=== PATIENT | female | born 1960 | race Caucasian/White ===

== ENCOUNTER → 2021-01-29 09:05 | Outpatient (CLI) | payer OTHER, SELFPAY ==
--- NOTE | ~2021-01-29 | MR_ITS ---
EXAMINATION: MR ankle LT wo con DATE: 01/29/2021 10:11 INDICATION: Plantar fasciitis with left ankle pain. TECHNIQUE: Magnetic resonance imaging (MRI) of the left ankle was performed without intravenous contr ast. Sequences included sagittal, coronal, and axial proton-density weighted fast spin echo without a nd with fat saturation. COMPARISON: None. FINDINGS: Medial ankle ligaments: Deep and superficial deltoid ligaments as well as the spring ligament are normal. Lateral ankle ligaments: The anterior and posterior inferior tibiofibular ligaments are normal. The anterior talofibular, calc aneofibular and posterior talofibular ligaments are normal. Tendons: Achilles tendon is normal. Minimal peroneal tenosynovitis. Mild tendinopathy and longitudinal split t ear of the peroneus longus longus tendon centered at the level of the caudal tip of the lateral malle olus. The peroneus brevis tendon is normal. Additional minimal tenosynovitis along the normal tibiali s posterior tendon. The flexor digitorum longus and flexor hallucis longus tendons are normal. The ti bialis anterior and extensor hallucis longus and extensor digitorum longus tendons are normal. Plantar fascia: Small plantar calcaneal spur with mild thickening of the proximal plantar aponeurosis. There is minim al increased fluid signal surrounding the aponeurosis and in the marrow at the osteophyte. Findings c onsistent with very mild acute on chronic plantar fasciitis/enthesitis. Bones/other: No fracture or pathologic marrow replacing process. Mild left ankle osteoarthritis with small regions of high-grade chondromalacia with minimal marrow edema along the lateral rim of the talus. Moderate osteoarthritis at the fourth tarsal metatarsal joint with more extensive subarticular edema and minim al cystic change at the distal articular surface of the cuboid. Mild osteoarthritis at the second and third tarsal metatarsal joints. Fluid: Physiologic amount of fluid in the joint spaces. No bursitis or other abnormal fluid collections. IMPRESSION: 1. Mild peroneal tenosynovitis with mild tendinopathy and longitudinal split tearing of the peroneus brevis longus tendon. 2. Very mild likely acute on chronic plantar fasciitis/enthesitis. 3. Mild articular osteoarthritis, moderate at the fourth tarsal metatarsal joint and mild at the ankl e and second and third tarsal metatarsal joints. Reviewed, dictated and finalized at location A. IMPRESSION: 1. Mild peroneal tenosynovitis with mild tendinopathy and longitudinal split te aring of the peroneus brevis longus tendon. 2. Very mild likely acute on chronic plantar fasciitis/enthesitis. 3. Mild articular osteoarthritis, moderate at the fourth tarsal metatarsal join t and mild at the ankle and second and third tarsal metatarsal joints.
--- NOTE | ~2021-01-29 | MR_ITS ---
EXAMINATION: MR ankle RT wo con DATE: 01/29/2021 10:07 INDICATION: Plantar fasciitis with lateral right ankle pain. TECHNIQUE: Magnetic resonance imaging (MRI) of the right ankle was performed without intravenous cont rast. Sequences included sagittal, coronal, and axial proton-density weighted fast spin echo without and with fat saturation. COMPARISON: None. FINDINGS: Medial ankle ligaments: Deep and superficial deltoid ligaments as well as the spring ligament are normal. Lateral ankle ligaments: The anterior and posterior inferior tibiofibular ligaments are normal. The anterior talofibular, calc aneofibular and posterior talofibular ligaments are normal. Tendons: Achilles tendon is normal. Mild peroneal tenosynovitis with small amount of fluid surrounding predomi nantly the distal portion of the tendon. Mild fusiform thickening of the peroneus longus tendon cente red at the retromalleolar groove consistent with mild tendinopathy without discrete tear. The peroneu s brevis tendon is normal. Mild tenosynovitis along the normal tibialis posterior tendon. The flexor digitorum longus and flexor hallucis longus tendons are normal. The tibialis anterior and extensor elliott llucis longus and extensor digitorum longus tendons are normal. Plantar fascia: Mild thickening of the proximal plantar aponeurosis with small enthesophyte and mild increased fluid signal at its calcaneal insertion consistent with very mild acute on chronic plantar fascitis/enthesi tis. Bones/other: Bone alignment is normal. Mild tibiotalar osteoarthritis with small region of high-grade chondromalac ia with minimal subarticular edema along the lateral rim of the talar dome. Additional mild osteoarth ritis at the third and fourth tarsal metatarsal joints. Nonspecific marrow edema at the base of the f ifth metatarsal which does not appears centered along the articular surface and without evident fract ure line most likely differential including bone contusion or stress reaction. No fracture or patholo gic marrow replacing process. Fluid: Physiologic amount fluid in the joint spaces. No bursitis or other abnormal fluid collections. IMPRESSION: 1. Nonspecific marrow edema at the base of the fifth metatarsal without evident fracture line or sign ificant associated osteoarthritis suggesting either stress reaction or bone contusion. 2. Mild peroneal tenosynovitis with mild peroneus longus tendinopathy without discrete tear. 3. Very mild acute on chronic plantar fasciitis/enthesitis. 4. Mild tibiotalar osteoarthritis. Reviewed, dictated and finalized at location A. IMPRESSION: 1. Nonspecific marrow edema at the base of the fifth metatarsal without evident fracture line or significant associated osteoarthritis suggesting either stres s reaction or bone contusion. 2. Mild peroneal tenosynovitis with mild peroneus longus tendinopathy without d iscrete tear. 3. Very mild acute on chronic plantar fasciitis/enthesitis. 4. Mild tibiotalar osteoarthritis.
== END ==
PROVIDERS: Visit Provider Podiatrist Foot & Ankle Surgery
DX: M72.2 Plantar fascial fibromatosis (principal); M19.071 Primary osteoarthritis, right ankle and foot; M19.072 Primary osteoarthritis, left ankle and foot
CPT/HCPCS: 73721

== ENCOUNTER 2021-08-01 08:36 | Outpatient (CLI) | payer OTHER, SELFPAY ==
--- NOTE | ~2021-08-01 | NM_ITS ---
EXAMINATION: NM sara stress w perfusion DATE: 08/01/2021 11:22 INDICATION: Atypical chest pain TECHNIQUE: Rest images were obtained following intravenous administration of 10.2 mCi Tc99m tetrofosm in (Myoview). The patient was infused intravenously with Lexiscan (Regadenoson). Then, 30.05 mCi Tc99 m tetrofosmin (Myoview) was administered intravenously, and stress images were obtained. Data was rec onstructed into short axis and horizontal and vertical long axis SPECT images. Gated SPECT images wer e also obtained. COMPARISON: None. FINDINGS: There is no definite reversible or fixed perfusion abnormality to suggest ischemia or infar ction. There is normal left ventricular chamber size, wall motion and ejection fraction. Left ventr icular ejection fraction measures >70%. IMPRESSION: 1. Normal myocardial perfusion at rest and during stress. 2. Left ventricular ejection fraction measuring >70%. Reviewed, dictated and finalized at location A.
--- NOTE | 2021-08-01 08:49 | EST_ITS ---
Patient Info Name: Savanna Veliz Age: 61 years : 1960 Gender: Female Ht: 66 in Wt: 215 lbs BSA: 2.17 m2 HR: 62 bpm BP: 150 / 92 mmHg Heart Rhythm: Sinus Rhythm Exam Date: 08/01/2021 9:49 AM Exam Location: [facility] Stress Patient Status: Outpatient Admit Date: 08/01/2021 Staff Ordering Physician: Bandar Smith DO Attending Provider: Bandar Smith DO Exercise Technologist: Netta Benito CT Exercise Physician: Asif Simpson DO Exam Type: CA stress sara w NM Study Info Indications R07.9 - Chest pain, unspecified A regadenoson stress test was performed. Summary 1. 1. Negative lexiscan stress test for ischemic ST changes by ECG criteria. 2. 2. Baseline hypertension. 3. 3. Nuclear scan to follow and will be reported separately. Please correlate with it. 4. 4. Patient informed of the above results. Protocol: Lexiscan Stress ECG Details Stage: REST Duration (min): 1 min : 9 sec HR (bpm): 61 SBP (mmHg): 150 DBP (mmHg): 92 Stage: REST Duration (min): 6 min : 48 sec HR (bpm): 64 SBP (mmHg): 150 DBP (mmHg): 92 Stage: STAGE 1 Duration (min): 0 min : 59 sec HR (bpm): 79 SBP (mmHg): 166 DBP (mmHg): 81 Stage: RECOVERY Duration (min): 1 min : 0 sec HR (bpm): 82 SBP (mmHg): 166 DBP (mmHg): 81 Stage: RECOVERY Duration (min): 2 min : 0 sec HR (bpm): 74 SBP (mmHg): 166 DBP (mmHg): 81 Stage: RECOVERY Duration (min): 3 min : 0 sec HR (bpm): 80 SBP (mmHg): 185 DBP (mmHg): 94 Stage: RECOVERY Duration (min): 3 min : 3 sec HR (bpm): 78 SBP (mmHg): 185 DBP (mmHg): 94 Rest HR: 64 bpm Peak HR: 89 bpm Rest Sys BP: 150 mmHg Peak Sys BP: 185 mmHg Max Pred HR: 157 bpm % Max Pred HR: 57 % Target HR: 133 bpm Max RPP: 16,465 bpm*mmHg Termination Reason: Completed protocol Cardiac Symptoms: Shortness of breath Total Time: 1 min : 0 sec Rest Billy BP: 92 mmHg Peak Billy BP: 94 mmHg Total Dose: 0.4 mg Resting ECG Sinus rhythm, IRBBB. Stress ECG No ST changes. Arrhythmias None. Report Signatures
== END 2021-08-01 08:37 | disposition home or self-care (01) ==
LOC: ANHCARD 08:38
PROVIDERS: PCP Internal Medicine; Visit Provider Internal Medicine
DX: R07.89 Other chest pain (principal)
CPT/HCPCS: 78452; 93017; A9502; J2785

== ENCOUNTER 2021-08-22 01:23 | Day surgery (SDC) | payer OTHER, SELFPAY ==
[2021-08-16 13:25] VITALS: BMI 35.2
--- NOTE | 2021-08-19 16:14 | PM.HPGS ---
History of Present Illness History of Present Illness Consent: Risks, benefits, and alternatives have been discussed and questions answered. Patient agrees to proceed with procedure. Chief complaint: GERD Narrative: Savanna Veliz is a 61 year old female with chronic gastroesophageal reflux symptoms.. Despite taking omeprazole regularly, she is still having symptoms. Every few weeks she will get an attack lasting 30 or 40 minutes with burning going up into her throat and even to her left ear. It leaves her chest uncomfortable for a while afterwards. She considered going to the emergency room but has not done that. Her Prilosec was recently increased to twice a day a week or so ago and she has had no episodes since then. Rarely she will have some sensation that food does not want to go down as though it is hanging up in her throat. Review of Systems Review of Systems: All systems reviewed & are unremarkable except as noted in HPI and below PMFSH Past Medical History Medical History Pancreatitis Surgical History Surgical History H/O cervical spine surgery H/O parathyroidectomy H/O: hysterectomy History of foot surgery Family History Family History Sibling Hypertension Family history of heart disease in male family member before age 55 Mother Family history of lung cancer, Onset Age: 85 Patient's mother is Father Cerebrovascular accident, Onset Age: 82 Patient's father is Other Diabetes mellitus Social History Social History Smoking packs per day: 2 Smoking cigarettes per day: 40.0 Years smoked: 30 Smoking pack-years: 60.00 Smoking status: Former smoker Tobacco type: cigarettes Second hand tobacco smoke exposure: No Smoking end date: 10/15/84 Alcohol intake: never Substance use: never Substance use type: does not use Living arrangements: with family Spiritual care concerns: No Meds Home Medications and Allergies Home Medications Medication Instructions Recorded Confirmed Type atorvastatin 20 mg tablet 20 mg PO DAILY #90 tablet 04/26/21 08/17/21 Rx naproxen sodium 220 mg capsule 220 mg PO BID PRN 05/30/21 08/17/21 History losartan 100 mg tablet 100 mg PO DAILY #90 tablet 06/21/21 08/17/21 Rx ergocalciferol (vitamin D2) 1,250 50,000 unit PO WEEKLY #13 cap 06/28/21 08/17/21 Rx mcg (50,000 unit) capsule fluticasone propionate See Rx Instructions .ROUTE 08/16/21 08/17/21 History .COMPLEX PRN hydrochlorothiazide 25 mg tablet 25 mg PO DAILY #90 tablet 08/16/21 08/16/21 Rx omeprazole 40 mg capsule,delayed 40 mg PO BID #90 cap 08/16/21 08/16/21 Rx release Allergies Allergy/AdvReac Type Severity Reaction Status Date / Time adhesive Allergy Mild REDNESS Verified 08/22/21 11:37 amoxicillin Allergy Mild yeast Verified 08/22/21 11:37 infection aspirin Allergy Mild Unknown Verified 08/22/21 11:37 lisinopril Allergy Mild Cough Verified 08/22/21 11:37 meperidine Allergy Mild Hives; Verified 08/22/21 11:37 hand swelling promethazine Allergy Mild hives/hand Verified 08/22/21 11:37 swelling Sulfa (Sulfonamide Allergy Mild Unknown Verified 08/22/21 11:37 Antibiotics) sulfanilamide Allergy Mild Unknown Verified 08/22/21 11:37 Exam Const: General: alert Orientation/consciousness: patient oriented x3 Resp: Auscultation: clear to auscultation bilaterally Cardio: Rhythm: regular rhythm GI: GI Palp: Yes Soft to palpation and No Tenderness to palpation present (GI) Neuro: General: patient oriented x3 Assessment and Plan Assessment and plan (1) GERD (gastroesophageal reflux disease): Code(s): K21.9 - Gastro-esophageal reflux disease without esophagitis Status: Acute
[2021-08-22 11:39] VITALS: BP 156/99; PULSE 65; RESP 18; TEMP 36.4; O2SAT 98
[2021-08-22] MEDS: LACTATED RINGERS 1,000 ML 150 ML IV CONT (11:45)
--- NOTE | 2021-08-22 12:12 | WPDANESEPPF ---
Anes - Initial Pre Proc Eval Procedure: Operation Date: 08/22/21 13:30 Proposed Procedures p Esophagogastroduodenoscopy - Israel Mahajan MD Date/Time: 08/22/21 12:12 Surgeon: Israel Mahajan MD Pre Op Diagnosis: GERD Patient Data Age: 61 Gender: F Height: 1.68 m Weight: 95.1 kg Last Vital Signs Temp 36.4 C L 08/22/21 11:39 Pulse 65 08/22/21 11:39 Resp 18 08/22/21 11:39 BP 156/99 H 08/22/21 11:39 Pulse Ox 98 08/22/21 11:39 Allergies Allergy/AdvReac Type Severity Reaction Status Date / Time adhesive Allergy Mild REDNESS Verified 08/22/21 11:37 amoxicillin Allergy Mild yeast Verified 08/22/21 11:37 infection aspirin Allergy Mild Unknown Verified 08/22/21 11:37 lisinopril Allergy Mild Cough Verified 08/22/21 11:37 meperidine Allergy Mild Hives; Verified 08/22/21 11:37 hand swelling promethazine Allergy Mild hives/hand Verified 08/22/21 11:37 swelling Sulfa (Sulfonamide Allergy Mild Unknown Verified 08/22/21 11:37 Antibiotics) sulfanilamide Allergy Mild Unknown Verified 08/22/21 11:37 Home Medications Medication Instructions Recorded Confirmed Type atorvastatin 20 mg tablet 20 mg PO DAILY #90 tablet 04/26/21 08/17/21 Rx naproxen sodium 220 mg capsule 220 mg PO BID PRN 05/30/21 08/17/21 History losartan 100 mg tablet 100 mg PO DAILY #90 tablet 06/21/21 08/17/21 Rx ergocalciferol (vitamin D2) 1,250 50,000 unit PO WEEKLY #13 cap 06/28/21 08/17/21 Rx mcg (50,000 unit) capsule fluticasone propionate See Rx Instructions .ROUTE 08/16/21 08/17/21 History .COMPLEX PRN hydrochlorothiazide 25 mg tablet 25 mg PO DAILY #90 tablet 08/16/21 08/16/21 Rx omeprazole 40 mg capsule,delayed 40 mg PO BID #90 cap 08/16/21 08/16/21 Rx release Patient hx anesthesia problems: none Family hx anesthesia problems: none Results Review: All pre-operative results and documents have been reviewed as part of the pre-operative evaluation. [facility] Past Medical History Medical History (Updated 08/19/21 @ 16:15 by Israel Mahajan MD) Pancreatitis Surgical History Surgical History (Updated 08/22/21 @ 12:13 by Schuyler Alcala MD) H/O cervical spine surgery H/O parathyroidectomy H/O: hysterectomy History of foot surgery Family History Family History Sibling Hypertension Family history of heart disease in male family member before age 55 Mother Family history of lung cancer, Onset Age: 85 Patient's mother is Father Cerebrovascular accident, Onset Age: 82 Patient's father is Other Diabetes mellitus Social History Social History Smoking packs per day: 2 Smoking cigarettes per day: 40.0 Years smoked: 30 Smoking pack-years: 60.00 Smoking status: Former smoker Tobacco type: cigarettes Second hand tobacco smoke exposure: No Smoking end date: 10/15/84 Alcohol intake: never Substance use: never Substance use type: does not use Living arrangements: with family Spiritual care concerns: No Anes - Eval Final PreProcedure Day of Procedure 08/22/21 12:12 Patient weight: obese Heart: regular rate and rhythm Lungs: clear to auscultation Airway: Mallampati scale class II Neurological: alert and oriented Last oral intake: >/= 8 hours ASA classification: III Emergent: no Anesthetic plan: proceed Anesthesia type and monitoring: general GIVS and standard monitoring Results Review: All pre-operative results and documents have been reviewed as part of the pre-operative evaluation. Informed Consent: The patient's anesthetic plan and its attendant risks and benefits were discussed with the patient/family/POA. Questions were solicited and answers provided to the satisfaction of the patient/family/POA.
[2021-08-22 13:13] VITALS: BP 124/98; PULSE 57; RESP 19; O2SAT 98
[2021-08-22 13:23] VITALS: BP 180/83; PULSE 55; RESP 14; O2SAT 97
[2021-08-22 13:33] VITALS: BP 180/88; PULSE 56; RESP 16; O2SAT 98
== END 2021-08-22 13:41 | disposition home or self-care (01) ==
PROVIDERS: PCP Internal Medicine; Visit Provider Internal Medicine Gastroenterology
PROC: 0DJ08ZZ Inspection of Upper Intestinal Tract, Via Natural or Artificial Opening Endoscopic (ICD-10-PCS; CPT 43235; principal; 2021-08-22 13:30)
DX: K21.9 Gastro-esophageal reflux disease without esophagitis (principal); K44.9 Diaphragmatic hernia without obstruction or gangrene; Z87.891 Personal history of nicotine dependence; E66.9 Obesity, unspecified; Z68.33 Body mass index [BMI] 33.0-33.9, adult
CPT/HCPCS: 43239; 88305; J2704; J7120

== ENCOUNTER 2021-09-20 07:43 | Outpatient (CLI) | payer OTHER, SELFPAY ==
--- NOTE | ~2021-09-20 | MR_ITS ---
EXAMINATION: MR MRCP wo/w con/w 3D wo ind DATE: 09/20/2021 09:20 INDICATION: Abnormal levels of other serum enzymes. Chest and upper abdominal pain. TECHNIQUE: Magnetic resonance imaging (MRI) of the abdomen was performed without and with 19 mL Multi carlos intravenous contrast. Sequences included coronal T2-weighted SS-FSE, coronal T2-weighted FS SS- FSE, coronal T2-weighted FS FIESTA, axial T2-weighted FS FIESTA, axial T2-weighted FIESTA, sagittal T 2-weighted SS-FSE, axial T1-weighted dual-echo FSPGR, axial T2-weighted SS-FSE, axial T1-weighted LAV A, axial T2-weighted STIR FSE. Thick-slab T2-weighted FRFSE-XL images were obtained for magnetic reso nance cholangiopancreatography (MRCP). Rotating maximum intensity projection 3-D reconstructions of t he volumetric data were created by the technologist. Postcontrast sequences included a time course of axial T1-weighted LAVA. COMPARISON: CT dated 06/29/2015 FINDINGS: ABDOMEN MRI: Heart size is normal. No pericardial or pleural effusion. Susceptibility artifact associated with cho lecystectomy clips at the gallbladder fossa. Liver, pancreas, spleen and bilateral adrenal glands are normal. Small T2 hyperintense nonenhancing cysts in both kidneys the largest measuring 9 mm at the m id left kidney. Bowels including the appendix are normal. The uterus is not identified and has likely been surgically resected. No pathologically enlarged abdominal or pelvic lymphadenopathy. Mild lumba r levocurvature with mild spondylosis. L5-S1 anterior spinal fusion with anterior plate and screw fix ation. ABDOMEN MRCP: Common bile duct is dilated up to 7-8 mm . There are low signal intensity filling defects in the dist al common bile duct measuring up to 5 mm in short axis diameter consistent with choledocholithiasis. No filling defect evident in the nondependent portion of the common bile duct to suggest that this re presents pneumobilia. No significant intrahepatic biliary ductal dilation. Main pancreatic duct is no rmal in caliber with single dilated side branch at the body of the pancreas. IMPRESSION: 1. Choledocholithiasis with mild dilation of the common bile duct measuring 7-8 mm in maximal diamete r. Reviewed, dictated and finalized at location B. T TECHNICIAN IMPRESSION: 1. Choledocholithiasis with mild dilation of the common bile duct measuring 7-8 mm in maximal diameter.
== END 2021-09-20 07:44 | disposition home or self-care (01) ==
LOC: ANHIMG 07:47
PROVIDERS: PCP Internal Medicine; Visit Provider Internal Medicine Gastroenterology
DX: R74.8 Abnormal levels of other serum enzymes (principal); R10.13 Epigastric pain; K80.50 Calculus of bile duct without cholangitis or cholecystitis without obstruction
CPT/HCPCS: 74183; 76376; A9577

== ENCOUNTER 2021-10-11 16:20 | Observation (INO) | payer OTHER, SELFPAY ==
--- NOTE | ~2021-10-11 | XR_ITS ---
EXAMINATION: XR ERCP DATE: 10/13/2021 11:43 INDICATION: Choledocholithiasis. TECHNIQUE: 2 spot fluoroscopic images of the right upper quadrant were obtained during endoscopic ret rograde cholangiopancreatography (ERCP). Fluoroscopy exposure time was 33 seconds. COMPARISON: MRCP 09/20/2021 FINDINGS: The endoscope is in the second portion of the duodenum. There is contrast opacification of the common duct. There are filling defects in the common duct, consistent with stones. There are surg ical clips from cholecystectomy. IMPRESSION: 1. Choledocholithiasis. Please refer to the ERCP procedure note for additional details. Reviewed, dictated and finalized at location B. ANCE EDUCATION DIRECTOR
--- NOTE | ~2021-10-11 | CT_ITS ---
EXAMINATION: CT abdomen pelvis wo con EXAM DATE: 10/12/2021 00:26 INDICATION: Upper abd pain. TECHNIQUE: Spiral CT of the abdomen and pelvis was performed following intravenous injection of 100 m L Omnipaque 350. Axial, coronal and sagittal images of the abdomen and pelvis were reviewed. The do se-length product (DLP) for this examination was 1058.12 mGy-cm. The exposure was tailored according to patient size (auto mA exposure control), and iterative reconstruction (ASIR) was used as addition al dose reduction technique. Comparison is made to prior examination from 06/29/2015. FINDINGS: The liver, spleen, adrenal glands and pancreas are unremarkable. There are cholecystectomy clips. There is no nephrolithiasis or hydronephrosis. The uterus is not identified and has likely been surgically resected. The bladder is unremarkable. There is no retroperitoneal or pelvic lymph adenopathy. There is mild scattered arteriosclerotic disease. There is some crowding of small bowel in left upper quadrant, no intussusception is suspected as repo rted on preliminary report. The appendix is normal. There is expected amount of colonic stool. No free intraperitoneal gas. The heart is normal in size. There are no pericardial or pleural effusio ns. Approximately 3 cm region of ill-defined left lower lobe airspace disease most likely pneumonia. Consider follow-up chest CT in 3 months. There are no osteoblastic or osteolytic lesions identified . Anterior, interbody fusion L5-S1. IMPRESSION: 1. Left lower lobe opacity probably pneumonia; recommend 3 month follow-up CT. 2. No intussusception or other acute intra-abdominal findings. Reviewed, dictated and finalized at location A. ETCHER
--- NOTE | ~2021-10-11 | XR_ITS ---
EXAMINATION: XR chest 1V portable INDICATION: Generalized chest pain TECHNIQUE: Portable AP chest at 2329 hours COMPARISON: 11/23/2017 FINDINGS: There are minimal airspace opacities of the left mid/lower lung zone. There is no pleural e ffusion or pneumothorax. The cardiomediastinal silhouette is normal. Surgical changes are noted in th e lower cervical spine. IMPRESSION: 1. Minimal airspace opacity of the left/lower lung zone which may be infectious or inflammatory howev er, underlying lung nodule could have a similar appearance. Recommend followup radiographs in 10-14 d ays after appropriate therapy to evaluate for improvement/resolution. Reviewed, dictated and finalized at location F. RTMENT CLERK IMPRESSION: 1. Minimal airspace opacity of the left/lower lung zone which may be infectious or inflammatory however, underlying lung nodule could have a similar appearanc e. Recommend followup radiographs in 10-14 days after appropriate therapy to ev aluate for improvement/resolution.
[2021-10-11 16:38] VITALS: BP 179/113; PULSE 79; RESP 18; TEMP 36.8; O2SAT 97
[2021-10-11 18:42] VITALS: BP 156/84; PULSE 73; TEMP 37.2; O2SAT 100
[2021-10-11 22:55] VITALS: BP 152/95; PULSE 77; RESP 18; O2SAT 96
--- NOTE | 2021-10-11 23:21 | ECG_ITS ---
Measurements Intervals [place] Rate: 61 P: 35 OH: 158 QRS: 19 QRSD: 102 T: 44 QT: 415 QTc: 418 Interpretive Statements SINUS RHYTHM DELAYED PRECORDIAL R/S TRANSITION MINIMAL Q WAVES- HIGH LATERAL LEADS BASELINE ARTIFACT- I, II, AVR, AVL, AVF BORDERLINE ECG Electronically Signed On 10-12-2021 5:42:01 TAX COMPLIANCE OFFICER by Asif Simpson D.O.
--- NOTE | 2021-10-11 23:30 | ED.GENADULT ---
HPI - General Adult General Chief complaint: Abdominal Pain Stated complaint: Gallstones, abd pain Time Seen by Provider: 10/11/21 23:16 Source: RN notes reviewed History of Present Illness HPI narrative: Patient presents emergency department from home for abdominal pain. Patient states that she has been having issues with pain for the past 4 months she states that the pain is across the upper abdomen and the lower chest described as a pressure with radiation into the back and up into the bilateral shoulders she states that she has had work-ups for this pain including cardiac work-up that was negative with a negative stress test and is most recently been followed by Dr. Mahajan she had had a ERCP performed which showed choledocholithiasis on September 23 she supposed to be setting up for a MRCP and they have been try to get this scheduled she states that the pain has been constant now since and came to the ER for the continued and worsening pain states the pain had only been intermittent up to that point she denies any fevers or chills nausea vomiting or any other symptoms states she did not take any pain medication today Related Data Allergies Allergy/AdvReac Type Severity Reaction Status Date / Time adhesive Allergy Mild REDNESS Verified 10/11/21 23:58 amoxicillin Allergy Mild yeast Verified 10/11/21 23:58 infection aspirin Allergy Mild Unknown Verified 10/11/21 23:58 lisinopril Allergy Mild Cough Verified 10/11/21 23:58 meperidine Allergy Mild Hives; Verified 10/11/21 23:58 hand swelling promethazine Allergy Mild hives/hand Verified 10/11/21 23:58 swelling Sulfa (Sulfonamide Allergy Mild Unknown Verified 10/11/21 23:58 Antibiotics) sulfanilamide Allergy Mild Unknown Verified 10/11/21 23:58 Review of Systems Review of Systems: Gen.: Denies fevers or chills ENT: Denies congestion Respiratory: Denies shortness of breath or cough CV: Denies chest pain or palpitations GI: See HPI Musculoskeletal: Denies back pain or muscle pain Neuro: Denies numbness, tingling, weakness or focal weakness Skin: Denies rash Except as documented, all other systems reviewed and negative PMFSH Past Medical History Medical History Pancreatitis Surgical History Surgical History H/O cervical spine surgery H/O parathyroidectomy H/O: hysterectomy History of foot surgery Family History Family History Sibling Hypertension Family history of heart disease in male family member before age 55 Mother Family history of lung cancer, Onset Age: 85 Patient's mother is Father Cerebrovascular accident, Onset Age: 82 Patient's father is Other Diabetes mellitus Social History Social History Smoking packs per day: 2 Smoking cigarettes per day: 40.0 Years smoked: 30 Smoking pack-years: 60.00 Smoking status: Never smoker Tobacco type: cigarettes Second hand tobacco smoke exposure: No Smoking end date: 10/15/84 Alcohol intake: never Substance use: never Substance use type: does not use Spiritual care concerns: No Exam Narrative: APPEARANCE: No acute distress, nontoxic, resting in bed HEENT: Normocephalic, atraumatic, OMM RESPIRATORY: No respiratory distress, clear to auscultation bilaterally with no rhonchi wheezing or rales CARDIOVASCULAR: RRR s murmur ABDOMINAL: Soft nondistended tender palpation epigastric and right upper quadrant no tenderness lateral quadrant, left lower quadrant and right lower quadrant no rebound or guarding MUSCULOSKELETAl: Moves all extremities. No clubbing, cyanosis or edema. NEURO: Awake and alert. Following commands, speech normal, no focal deficits SKIN:: Warm, dry. Normal Color PSYCHIATRIC: Normal a
[2021-10-11 23:45] LABS: Basophils Percent Auto 0.7 % (0.2-1.2); Eosinophils Percent Auto 0.7 % (0-4.4); Hematocrit 39.1 % (37.0-47.0); Hemoglobin 12.9 g/dL (12.0-15.0); Immature Granulocyte Absolute 0.01 K/mm3 (0.00-0.031); Immature Granulocyte Percent A 0.2 % (0-0.5); Lymphocytes Absolute Auto 3.12 K/mm3 (0.9-3.2); Lymphocytes Percent Auto 51.3 % (18.3-44.2); Mean Corpuscular Hemoglobin 28.5 pg (26-34); Mean Corpuscular Volume 86.5 fl (80-100); Mean Platelet Volume 11.3 fl (7.4-10.4); Monocytes Absolute Auto 0.6 K/mm3 (0.1-0.6); Neutrophils Absolute Auto 2.3 K/mm3 (1.3-6.7); Neutrophils Percent Auto 38.1 % (45.5-73.1); Platelet Count Result 175 k/mm3 (150-375); Red Blood Count 4.52 M/mm3 (4.2-5.4); Red Cell Distribution Width 14.5 % (11.5-14.5); White Blood Count 6.1 K/mm3 (4.5-10.0)
[2021-10-11 23:50] LABS: Add Urine Microscopic? YES; Appearance Urine Clear (Clear); Bacteria Urine Trace /hpf; Bilirubin Urine Negative (Negative); Blood Urine Negative (Negative); Color Urine Yellow (Yellow); Glucose Urine UA Negative (Negative); Ketones Urine Negative (Negative); Leukocyte Esterase Ur Trace LEU/UL (Negative); Mucus Urine Rare /lpf; Nitrate Urine Negative (Negative); Protein Urine Negative (Negative); Specific Grav Ur 1.014 (1.001-1.035); Squamous Epithelial Cell Urine Few /hpf (Few); Urobilinogen Urine Negative mg/dL (<2.0)
[2021-10-11 23:57] VITALS: BP 147/87; PULSE 72; RESP 16; O2SAT 97
[2021-10-12] VITALS (8 sets, daily range): BP systolic 142–168; BP diastolic 59–92; PULSE 55–73; RESP 12–18; TEMP 35.7–36.6; O2SAT 95–99; BMI 34.2; BMI 34.7
[2021-10-12] LABS: Alanine Aminotransferase 111 U/L (4-35); Albumin Level 4.7 g/dL (3.5-5.1); Alkaline Phosphatase 292 U/L (38-126); Anion Gap 7 mmol/L (8-16); Aspartate Amino Transferase 74 U/L (14-36); Bilirubin,Total 0.5 mg/dL (0.2-1.3); Blood Urea Nitrogen 31 mg/dL (7-17); Calcium 9.8 mg/dL (8.4-10.2); Carbon Dioxide 23 mmol/L (22-30); Chloride 108 mmol/L (98-107); Estimated CRCL calculation 34 ml/min; Estimated Glomerular Filt Rate 28; Glucose 101 mg/dL (65-110); Lipase 201 U/L (23-300); Potassium 3.9 mmol/L (3.4-5.0); Sodium 138 mmol/L (137-145)
[2021-10-12] MEDS: SODIUM CHLORIDE 0.9% IV 1,000 ML 999 ML IV CONT (00:09)
[2021-10-12 00:11] LABS: Troponin I < 0.012 ng/mL (0.000-0.034)
[2021-10-12 03:02] LABS: Lactic Acid Reflex 0.6 mmol/L (0.7-2.1)
[2021-10-12] MEDS: PANTOPRAZOLE SODIUM IV 40 MG VIAL IV PUSH (03:25)
[2021-10-12] MEDS: SODIUM CHLORIDE 0.9% IV 1,000 ML 125 ML IV CONT ×2 (05:28→15:03)
--- NOTE | 2021-10-12 07:48 | ADMGEN ---
This patient, Savanna Veliz, was admitted to [facility] (Formerly [facility]) Surgery-2. Patient/family oriented to hospital policies and general routines including ID bracelet, bed and alarms, visiting hours, pain management, procedures, bathroom and other care routines, personal items, smoking policy, room service/diet, and visiting hours. Information on how to activate the Rapid Response Team has been discussed. Patient/Family are encouraged to report perceived risks to care and to ask questions if they do not understand what they are told or what they should do.
--- NOTE | 2021-10-12 09:34 | PM.CNGS ---
Assessment and Plan Assessment and plan (1) Abdominal pain: Code(s): R10.9 - Unspecified abdominal pain Status: Acute Assessment and Plan: We were consulted for the concern of a possible small bowel intussusception from the ER. The virtual radiologist report on her CT scan showed a possible intussusception in the left upper quadrant. Our radiologist this morning read the CT scan and reported there is no intussusception. She does not clinically show any evidence of an intussusception. Her epigastric abdominal pain appears to be biliary related and we would agree with GI consultation. Since this does not appear to be an intussusception, we have no plans for surgery at this time. I discussed this with the patient and her daughter in detail. We reviewed the imaging and I answered all questions. Thank you for allowing us to see the patient in consultation. We will sign off at this point. Please let us know if there are any surgical needs in the future. (2) Choledocholithiasis: Code(s): K80.50 - Calculus of bile duct without cholangitis or cholecystitis without obstruction Status: Acute Assessment and Plan: She had biliary pancreatitis with choledocholithiasis in December of 2013 with a subsequent ERCP and laparoscopic cholecystectomy at that time. She has recently began having substernal chest pain and epigastric pain since July that has become more frequent and more severe. She has had outpatient workup, including an MRCP on 09/20/21 showing choledocholithiasis. She was set up with GI to have an ERCP next month but her symptoms have brought her to the ER. Agree with GI consultation. (3) Elevated LFTs: Code(s): R79.89 - Other specified abnormal findings of blood chemistry Status: Acute Assessment and Plan: This could be related to the stones in her CBD, but the patient also reports that her liver function tests have been elevated for years. GI consulted. See plan above. (4) Acute renal insufficiency: Code(s): N28.9 - Disorder of kidney and ureter, unspecified Status: Acute Assessment and Plan: Labs one month ago showed a creatinine of 0.9. This admission, her creatinine is up to 1.8. Continue IV fluids. Management per the Hospitalist. (5) GERD (gastroesophageal reflux disease): Code(s): K21.9 - Gastro-esophageal reflux disease without esophagitis Status: Acute Assessment and Plan: EGD in August showing reflux disease. (6) Obesity (BMI 30-39.9): Code(s): E66.9 - Obesity, unspecified Status: Acute Additional Plan I have discussed the patient's case and plan of care with Dr. Capone. History of Present Illness Consult details Consult date: 10/12/21 Reason for consult: abdominal pain (Initial CT scan findings of possible small bowel intussusception) Requesting physician: Rylan Barba DO Narrative: This is a 61-year-old female with a history of hypertension, hyperlipidemia, and GERD, who presented to the ER with complaints of midsternal chest pain and nausea. She reports having a history of biliary pancreatitis in 2013 with subsequent laparoscopic cholecystectomy at [facility] and she was transferred to an outlying facility for an ERCP. She has had no issues after this episode, up until two months ago when she began having intermittent substernal chest pain about once weekly that would resolve spontaneously. She had seen her PCP and had a negative cardiac work-up. She was referred to GI and underwent an EGD in August which showed reflux disease and a hiatal hernia. Labs in August also showed mildly elevated AST, ALT, and alk phos. Her symptoms continued and her PCP ordered an outpatient MRCP on 09/20/21, which showed choledocholithiasis with CBD measuring 7-8 mm. Her PCP was working on setting her up for an ERCP with Dr. Mahajan in early October. She reports that her pain returned on and was more severe. The pain remained cons
--- NOTE | 2021-10-12 15:02 | WPDGICN ---
Assessment and Plan Assessment and plan (1) Choledocholithiasis: Code(s): K80.50 - Calculus of bile duct without cholangitis or cholecystitis without obstruction Status: Acute Assessment and Plan: Patient with choledocholithiasis identified by MRCP 09/20/2021. Now with elevated LFTs and atypical chest and shoulder pain. This pain is very typical to several years ago when she had her gallbladder removed. Her LFTs remain elevated suggesting this may be source of her discomfort. She appears to have a benign abdomen at this time. Plan to proceed with an ERCP tomorrow if surgery is not anticipated. (2) Elevated LFTs: Code(s): R79.89 - Other specified abnormal findings of blood chemistry Status: Acute Assessment and Plan: Elevated LFTs likely on the basis of her CBD stones suggested by MRCP. Plan for ERCP tomorrow. (3) Enteric intussusception: Code(s): K56.1 - Intussusception Status: Acute Assessment and Plan: Abnormal CT scan suggest enteric intussusception. This is likely a spurious finding. Surgery feels she has a benign abdomen and review of x-ray suggests this may not be actual explanation for abnormality x-ray. Will plan to proceed with ERCP if surgery is felt comfortable with this not being an accurate diagnosis. GI Consult Note Consult date/time: 10/12/21 15:02 HPI: Savanna Veliz is a 61 year old female Who has had vague Atypical chest and shoulder pain since May of this year. She gets pain in both shoulders it radiates across and behind her chest. Initially treated for GE reflux she underwent an endoscopy by Dr. Israel Mahajan that was unremarkable. Subsequent MRCP suggest a common bile duct gallstone. This was performed 09/20/2021. Elective ERCP was anticipated. Patient does have a history of prior cholecystectomy and an ERCP in 2013. She states pain became rather significant last evening prompting her to go to the emergency room. In the ER a CT scan suggest possible intussusception however review by our radiologist and they surgery service feels this is not present and that she has a benign abdomen at this time. Her LFTs were noted to be elevated in the emergency room. No fever or bleeding has been described. Review of Systems Review of Systems: All systems reviewed & are unremarkable except as noted in HPI and below PMFSH Past Medical History Medical History (Updated 10/12/21 @ 11:45 by SHAYY Amador) Allergic rhinitis GERD (gastroesophageal reflux disease) Hyperlipidemia Hypertension Pancreatitis Vitamin D deficiency, unspecified Surgical History Surgical History H/O parathyroidectomy H/O: hysterectomy History of ERCP 2013 with biliary pancreatitis, choledocholithiasis History of foot surgery History of laparoscopic cholecystectomy 2013 History of spinal surgery Surgery on her lumbar spine via anterior approach Family History Family History Sibling Hypertension Family history of heart disease in male family member before age 55 Mother Family history of lung cancer, Onset Age: 85 Patient's mother is Father Cerebrovascular accident, Onset Age: 82 Patient's father is Other Diabetes mellitus Social History Social History Smoking packs per day: 2 Smoking cigarettes per day: 40.0 Years smoked: 30 Smoking pack-years: 60.00 Smoking status: Former smoker Tobacco type: cigarettes Second hand tobacco smoke exposure: No Smoking end date: 10/15/84 Alcohol intake: never Substance use: never Substance use type: does not use Spiritual care concerns: No Meds Home Medications and Allergies Home Medications Medication Instructions Recorded Confirmed Type atorvastatin 20 mg tablet
--- NOTE | 2021-10-12 15:35 | PM.IMHP ---
H&P: HPI History of Present Illness Date/Time: 10/12/21 15:35 Chief Complaint: Abdominal pain Narrative: patient is a 61-year-old female with a past medical history of GERD, hyperlipidemia, cholecystectomy who presented the ED for severe abdominal pain. Patient has been having issues with this for the past 4 months. Patient is post cholecystectomy. Patient had an MRCP done on September 23 which showed choledocholithiasis. She follows Dr. Lopez outpatient and has been trying to schedule an ERCP. patient has been trying to make it till her appointment outpatient however the pain just got bad that she had to come to the ED. patient stated that most of her pain comes after she eats and is an 8/10 at its worst. She stated that last about 30-40 minutes to time. Patient stated that she has been lying down when the pain starts which has helped a little bit but not much. She has also experienced nauseousness and night sweats. She has not been able to sleep at all because she wakes up about once an hour. Patient stated that she has experienced all of this before about 7 years ago when she had a stent placed. However that did not help and patient ended up with pancreatitis. Patient denies chest pain, shortness of breath, nausea, vomiting, diarrhea, constipation, urinary dysfunction, fevers, chills, headache, lightheadedness, dizziness, weakness or fatigue. Patient is being admitted to the hospitalist service under observation at this time Review of Systems Review of Systems: All systems reviewed & are unremarkable except as noted in HPI and below PMFSH Past Medical History Medical History Allergic rhinitis GERD (gastroesophageal reflux disease) Hyperlipidemia Hypertension Pancreatitis Vitamin D deficiency, unspecified Surgical History Surgical History H/O parathyroidectomy H/O: hysterectomy History of ERCP 2013 with biliary pancreatitis, choledocholithiasis History of foot surgery History of laparoscopic cholecystectomy 2013 History of spinal surgery Surgery on her lumbar spine via anterior approach Family History Family History Sibling Hypertension Family history of heart disease in male family member before age 55 Mother Family history of lung cancer, Onset Age: 85 Patient's mother is Father Cerebrovascular accident, Onset Age: 82 Patient's father is Other Diabetes mellitus Social History Social History (Updated 10/12/21 @ 16:16 by MARYLU Acuna) Social History: patient is the and has 2 daughters with 2 grandsons. She denies having pets and would like her Christian to be her surrogate if needed. Patient wishes to be a full code at this time Smoking packs per day: 2 Smoking cigarettes per day: 40.0 Years smoked: 30 Smoking pack-years: 60.00 Smoking status: Former smoker Tobacco type: cigarettes Second hand tobacco smoke exposure: No Smoking end date: 10/15/84 Alcohol intake: never Substance use: never Substance use type: does not use Living arrangements: with family Occupation/Education: occupation Gender identity (if verbalized by the patient): Female Sexual Orientation (if Verbalized by the Patient): Straight or Heterosexual Spiritual care concerns: No Agree to blood products: Yes Meds Home Medications and Allergies Home Medications Medication Instructions Recorded Confirmed Type atorvastatin 20 mg tablet 20 mg PO DAILY #90 tablet 04/26/21 10/12/21 Rx losartan 100 mg tablet 100 mg PO DAILY #90 tablet 06/21/21 10/12/21 Rx ergocalciferol (vitamin D2) 1,250 50,000 unit PO WEEKLY #13 cap 06/28/21 10/12/21 Rx mcg (50,000 unit) capsule hydrochlorothiazide 25 mg tablet 25 mg PO DAILY #90 tablet 08/16/21 10/12/21 Rx omeprazole 40 m
[2021-10-12] MEDS: hydroCHLOROthiazide 25 MG TABLET PO (17:20)
[2021-10-12] MEDS: LOSARTAN POTASSIUM 100 MG TABLET PO (17:20)
[2021-10-12] MEDS: ACETAMINOPHEN 500 MG TABLET 1000 MG PO (19:00)
[2021-10-12] MEDS: PANTOPRAZOLE 40 MG TABLET PO (21:04)
[2021-10-13] VITALS (13 sets, daily range): BP systolic 132–186; BP diastolic 68–87; PULSE 53–69; RESP 12–20; TEMP 36–36.7; O2SAT 97–100
[2021-10-13] MEDS: SODIUM CHLORIDE 0.9% IV 1,000 ML 125 ML IV CONT (01:04)
[2021-10-13 06:27] LABS: Basophils Percent Auto 0.5 % (0.2-1.2); Eosinophils Absolute Auto 0.1 K/mm3 (0-0.3); Eosinophils Percent Auto 1.1 % (0-4.4); Hematocrit 33.2 % (37.0-47.0); Immature Granulocyte Absolute 0.01 K/mm3 (0.00-0.031); Immature Granulocyte Percent A 0.2 % (0-0.5); Lymphocytes Percent Auto 47.8 % (18.3-44.2); Mean Corpuscular HGB Conc 33.1 g/dl (32-36); Mean Corpuscular Hemoglobin 28.3 pg (26-34); Mean Corpuscular Volume 85.3 fl (80-100); Mean Platelet Volume 11.4 fl (7.4-10.4); Monocytes Absolute Auto 0.4 K/mm3 (0.1-0.6); Monocytes Percent Auto 9.8 % (2.6-8.5); Neutrophils Absolute Auto 1.8 K/mm3 (1.3-6.7); Neutrophils Percent Auto 40.6 % (45.5-73.1); Platelet Count Result 143 k/mm3 (150-375); Red Blood Count 3.89 M/mm3 (4.2-5.4); White Blood Count 4.4 K/mm3 (4.5-10.0)
[2021-10-13 06:43] LABS: Alanine Aminotransferase 87 U/L (4-35); Albumin Level 3.4 g/dL (3.5-5.1); Alkaline Phosphatase 209 U/L (38-126); Anion Gap 6 mmol/L (8-16); Aspartate Amino Transferase 73 U/L (14-36); Bilirubin,Total 0.5 mg/dL (0.2-1.3); Blood Urea Nitrogen 23 mg/dL (7-17); Calcium 8.9 mg/dL (8.4-10.2); Carbon Dioxide 23 mmol/L (22-30); Chloride 111 mmol/L (98-107); Estimated CRCL calculation 55 ml/min; Estimated Glomerular Filt Rate 50; Glucose 89 mg/dL (65-110); Potassium 3.8 mmol/L (3.4-5.0); Sodium 140 mmol/L (137-145)
--- NOTE | 2021-10-13 06:56 | WPDANESEPPF ---
Anes - Initial Pre Proc Eval Procedure: Operation Date: 10/13/21 11:30 Proposed Procedures p Endoscopic Retro Cholangiopancreatogram - Bogdan Powell MD Date/Time: 10/13/21 06:56 Surgeon: Ellie Alvarado DO Pre Op Diagnosis: Intussusception,elevated LFT's,abdominal pain,chol Patient Data Age: 61 Gender: F Height: 1.68 m Weight: 97.522 kg Last Vital Signs Temp 36.1 C L 10/13/21 05:14 Pulse 54 L 10/13/21 05:14 Resp 16 10/13/21 05:14 BP 148/72 H 10/13/21 05:14 Pulse Ox 98 10/13/21 05:14 Allergies Allergy/AdvReac Type Severity Reaction Status Date / Time adhesive Allergy Mild REDNESS Verified 10/13/21 09:48 amoxicillin Allergy Mild yeast Verified 10/13/21 09:48 infection aspirin Allergy Mild Unknown Verified 10/13/21 09:48 meperidine Allergy Mild Hives; Verified 10/13/21 09:48 hand swelling Sulfa (Sulfonamide Allergy Mild Unknown Verified 10/13/21 09:48 Antibiotics) sulfanilamide Allergy Mild Unknown Verified 10/13/21 09:48 Home Medications Medication Instructions Recorded Confirmed Type atorvastatin 20 mg tablet 20 mg PO DAILY #90 tablet 04/26/21 10/12/21 Rx losartan 100 mg tablet 100 mg PO DAILY #90 tablet 06/21/21 10/12/21 Rx ergocalciferol (vitamin D2) 1,250 50,000 unit PO WEEKLY #13 cap 06/28/21 10/12/21 Rx mcg (50,000 unit) capsule hydrochlorothiazide 25 mg tablet 25 mg PO DAILY #90 tablet 08/16/21 10/12/21 Rx omeprazole 40 mg capsule,delayed 40 mg PO BID #90 cap 08/16/21 10/12/21 Rx release fluticasone propionate 50 2 spray INTRANASAL DAILY PRN #16 g 09/26/21 10/12/21 Rx mcg/actuation nasal spray,suspension Laboratory Tests 10/13/21 10/13/21 06:14 06:14 WBC Pending RBC Pending Hgb Pending Hct Pending MCV Pending MCH Pending MCHC Pending RDW Pending Plt Count Pending MPV Pending Immature Gran % (Auto) Pending Neut % (Auto) Pending Lymph % (Auto) Pending Sharp % (Auto) Pending Eos % (Auto) Pending Baso % (Auto) Pending Lymph # (Auto) Pending Sharp # (Auto) Pending Eos # (Auto) Pending Baso # (Auto) Pending Abs Immat Gran (auto) Pending Absolute Neuts (auto) Pending Absolute Nucleated RBC Pending Nucleated RBC % Pending Sodium 140 mmol/L mmol/L (137-145) Potassium 3.8 mmol/L mmol/L (3.4-5.0) Chloride 111 mmol/L H mmol/L (98-107) Carbon Dioxide 23 mmol/L mmol/L (22-30) Anion Gap 6 mmol/L L mmol/L (8-16) BUN 23 mg/dL H mg/dL (7-17) Creatinine 1.10 mg/dL H mg/dL (0.7-1.0) Estim Creat Clear Calc 55 ml/min ml/min Estimated GFR 50 L (59 - ) Glucose 89 mg/dL mg/dL (65-110) Calcium 8.9 mg/dL mg/dL (8.4-10.2) Total Bilirubin 0.5 mg/dL mg/dL (0.2-1.3) AST 73 U/L H U/L (14-36) ALT 87 U/L H U/L (4-35) Alkaline Phosphatase 209 U/L H U/L (38-126) Total Protein 6.0 g/dL L g/dL (6.3-8.2) Albumin 3.4 g/dL L g/dL (3.5-5.1) Patient hx anesthesia problems: none Family hx anesthesia problems: none Results Review: All pre-operative results and documents have been reviewed as part of the pre-operative evaluation. [facility] Past Medical History Medical History Allergic rhinitis GERD (gastroesophageal reflux disease) Hyperlipidemia Hypertension Pancreatitis Vitamin D deficiency, unspecified Surgical History Surgical History H/O parathyroidectomy H/O: hysterectomy History of ERCP 2013 with biliary pancreatitis, choledocholithiasis History of foot surgery History of laparoscopic cholecystectomy 2013 History of spinal surgery Surgery on her lumbar spine via anterior approach
--- NOTE | 2021-10-13 08:10 | PM.IMPN ---
Progress Note: A&P Assessment and Plan (1) Choledocholithiasis: Code(s): K80.50 - Calculus of bile duct without cholangitis or cholecystitis without obstruction Status: Acute Assessment and Plan: MRCP from 09/20 showed choledocholithiasis says with mild dilatation of the common bile duct abdominal CT was negative GI has been consulted ERCP performed with 2 stone extractions continue IV fluids, antiemetics, pain medications supportive care Advance diet as tolerated per GI (2) Elevated LFTs: Code(s): R79.89 - Other specified abnormal findings of blood chemistry Status: Acute Assessment and Plan: AST/ALT 73/87, alk-phos 209 related to the findings of the MRCP trend liver enzymes, for resolution GI on board (3) Abdominal pain: Code(s): R10.9 - Unspecified abdominal pain Status: Acute Assessment and Plan: was thought to be intussusception, was not after further review abdominal CT shows no acute abnormalities probably related to the choledocholithiasis pain management antiemetics NPO (4) Hyperlipidemia: Code(s): E78.5 - Hyperlipidemia, unspecified Status: Acute Assessment and Plan: continue home atorvastatin (5) CRISTIANE (acute kidney injury): Code(s): N17.9 - Acute kidney failure, unspecified Status: Acute Assessment and Plan: BUN creatinine elevated 23/1.10 continue rehydration with normal saline trend labs labs in a.m. avoid nephrotoxic medications (6) HTN (hypertension): Code(s): I10 - Essential (primary) hypertension Status: Acute Assessment and Plan: Seems to be getting more uncontrolled Added amlodipine and PRN hydralazine with parameters blood pressure 186/86, 183/83, 172/86 continue home meds trend blood pressure adjust therapy as indicated Time Spent With Patient Time with patient: Greater than 35 minutes Subjective Date/time seen: 10/13/21 0810 Interval history: Date/Time: 10/12/21 15:35 Narrative: patient is a 61-year-old female with a past medical history of GERD, hyperlipidemia, cholecystectomy who presented the ED for severe abdominal pain. Patient has been having issues with this for the past 4 months. Patient is post cholecystectomy. Patient had an MRCP done on September 23 which showed choledocholithiasis. She follows Dr. Lopez outpatient and has been trying to schedule an ERCP. patient has been trying to make it till her appointment outpatient however the pain just got bad that she had to come to the ED. patient stated that most of her pain comes after she eats and is an 8/10 at its worst. She stated that last about 30-40 minutes to time. Patient stated that she has been lying down when the pain starts which has helped a little bit but not much. She has also experienced nauseousness and night sweats. She has not been able to sleep at all because she wakes up about once an hour. Patient stated that she has experienced all of this before about 7 years ago when she had a stent placed. However that did not help and patient ended up with pancreatitis. Patient denies chest pain, shortness of breath, nausea, vomiting, diarrhea, constipation, urinary dysfunction, fevers, chills, headache, lightheadedness, dizziness, weakness or fatigue. Date/Time 10/13/21 0810 Patient was walking back to the bathroom. Patient stated that she did have some pain however not as bad as it has been. Patient stated that her pain is currently 4/10. Patient did state that it spiked up after she ate. She really does have any complaints today. Patient states she has some chest pain however she stated that she just had a stress test performed which showed that the pain was not related to her heart she states that her pain starts in the epigastric region and rotates and radiates to her shoulder blades. I did offer to do a tropon
--- NOTE | 2021-10-13 08:10 | P.PNIM_ITS ---
Progress Note: A&P Assessment and Plan (1) Choledocholithiasis: Code(s): K80.50 - Calculus of bile duct without cholangitis or cholecystitis without obstruction Status: Acute Assessment and Plan: * MRCP from 09/20 showed choledocholithiasis says with mild dilatation of the common bile duct * abdominal CT was negative * GI has been consulted * ERCP performed with 2 stone extractions * continue IV fluids, antiemetics, pain medications * supportive care * Advance diet as tolerated per GI (2) Elevated LFTs: Code(s): R79.89 - Other specified abnormal findings of blood chemistry Status: Acute Assessment and Plan: * AST/ALT 73/87, alk-phos 209 * related to the findings of the MRCP * trend liver enzymes, for resolution * GI on board (3) Abdominal pain: Code(s): R10.9 - Unspecified abdominal pain Status: Acute Assessment and Plan: * was thought to be intussusception, was not after further review * abdominal CT shows no acute abnormalities * probably related to the choledocholithiasis * pain management * antiemetics * NPO (4) Hyperlipidemia: Code(s): E78.5 - Hyperlipidemia, unspecified Status: Acute Assessment and Plan: * continue home atorvastatin (5) CRISTIANE (acute kidney injury): Code(s): N17.9 - Acute kidney failure, unspecified Status: Acute Assessment and Plan: * BUN creatinine elevated 23/1.10 * continue rehydration with normal saline * trend labs * labs in a.m. * avoid nephrotoxic medications (6) HTN (hypertension): Code(s): I10 - Essential (primary) hypertension Status: Acute Assessment and Plan: * Seems to be getting more uncontrolled * Added amlodipine and PRN hydralazine with parameters * blood pressure 186/86, 183/83, 172/86 * continue home meds * trend blood pressure * adjust therapy as indicated Time Spent With Patient Time with patient: Greater than 35 minutes Subjective Date/time seen: 10/13/21 0810 Interval history: Date/Time: 10/12/21 15:35 Narrative: patient is a 61-year-old female with a past medical history of GERD, hyperlipidemia, cholecystectomy who presented the ED for severe abdominal pain. Patient has been having issues with this for the past 4 months. Patient is post cholecystectomy. Patient had an MRCP done on September 23 which showed choledocholithiasis. She follows Dr. Lopez outpatient and has been trying to schedule an ERCP. patient has been trying to make it till her appointment outpatient however the pain just got bad that she had to come to the ED. patient stated that most of her pain comes after she eats and is an 8/10 at its worst. She stated that last about 30-40 minutes to time. Patient stated that she has been lying down when the pain starts which has helped a little bit but not much. She has also experienced nauseousness and night sweats. She has not been able to sleep at all because she wakes up about once an hour. Patient stated that she has experienced all of this before about 7 years ago when she had a stent placed. However that did not help and patient ended up with pancreatitis. Patient denies chest pain, shortness of breath, nausea, vomiting, diarrhea, constipation, urinary dysfunction, fevers, chills, headache, lightheadedness, dizziness, weakness or fatigue. Date/Time 10/13/21 0810 Patient was walking back to the bathroom. Patient stated that she did have some pain however no
[2021-10-13 09:44] LABS: INR 1.1; Prothrombin Time 13.9 Seconds (11.1-14.7)
[2021-10-13 09:45] LABS: Partial Thromboplastin Time 28.8 SECONDS (22.3-36.8)
[2021-10-13] MEDS: LACTATED RINGERS 1,000 ML 150 ML IV CONT (09:59)
[2021-10-13] MEDS: LOSARTAN POTASSIUM 100 MG TABLET PO (13:13)
[2021-10-13] MEDS: hydroCHLOROthiazide 25 MG TABLET PO (13:13)
[2021-10-13] MEDS: PANTOPRAZOLE 40 MG TABLET PO ×2 (13:13→20:03)
[2021-10-13] MEDS: HYDROcodone/acetaminophen (*CRX) 5-325 MG TABLET 1 TAB PO ×2 (13:14→20:03)
--- NOTE | 2021-10-13 14:49 | PM.PNGS ---
Progress Note: A&P Assessment and Plan (1) Abdominal pain: Code(s): R10.9 - Unspecified abdominal pain Status: Acute Assessment and Plan: Hopefully pain patient is been experiencing will be relieved by ERCP with sphincterotomy and common bile duct stone extraction. Still some pain but nothing severe. Probably can be followed up as an outpatient. Patient does not have intussusception and there is no evidence of an acute surgical problem. (2) Choledocholithiasis: Code(s): K80.50 - Calculus of bile duct without cholangitis or cholecystitis without obstruction Status: Acute Assessment and Plan: Appears to have primary biliary stones as patient had cholecystectomy and ERCP 7 years ago. I doubt the stones have been present that entire time. Etiology of stones not clear to me. Further plans per Dr. Powell and Dr. Mahajan. Patient can be discharged from surgical standpoint when hospitalist and GI feel she is ready. (3) Acute renal insufficiency: Code(s): N28.9 - Disorder of kidney and ureter, unspecified Status: Acute Assessment and Plan: Improving. Subjective Subjective Date/Time Seen: 10/13/21 14:49 Patient reports: still having pain (Some epigastric pain after ERCP) Interval history: Patient underwent ERCP this morning per Dr. Powell and 2 good-sized common bile duct stones were extracted. She has been comfortable with hemodynamic stability after the procedure. She is still having some mild upper abdominal pain which is, I believe, fairly typical after ERCP. No nausea or vomiting. Review of Systems Review of Systems: All systems reviewed & are unremarkable except as noted in HPI and below Constitutional: Constitutional: Denies body ache(s), Denies chills, Denies fever(s), Denies headache(s) and Reports lethargy Gastrointestinal: Gastrointestinal: Reports as per HPI, Reports abdominal pain, Denies GI cramping, Denies nausea and Denies vomiting Neurologic: Denies confusion and Denies headache(s) Exam Const: General: comfortable and no acute distress; No confusion Orientation/consciousness: patient oriented x3 and No confusion GI: Inspection: non-distended and no visible herniation GI Palp: Yes Soft to palpation, Yes Tenderness to palpation present (GI) (Minimal tenderness), No Guarding due to palpation present (GI), No Hepatomegaly present, No Splenomegaly present, No Palpable mass present and No Rebound tenderness present Auscultation: normal bowel sounds Neuro: General: patient oriented x3, no focal motor deficits and No confusion Extrem: General: no calf tenderness and no edema Psych: Affect: normal affect Insight: Good insight present (Psych) Judgement: Good judgement present (Psych) Objective Data Vital Signs Vital Signs: Vital Signs - 24 hr 10/12/21 21:04 10/13/21 05:14 10/13/21 07:15 Temperature 36.4 C L 36.1 C L 36.1 C L Pulse Rate 62 54 L 60 Respiratory Rate 16 16 12 Blood Pressure 149/67 H 148/72 H 152/71 H Pulse Oximetry 98 98 99 10/13/21 09:49 10/13/21 11:46 10/13/21 11:56 Temperature 36.3 C L 36.0 C L Pulse Rate 69 65 58 L Respiratory Rate 20 18 18 Blood Pressure 154/82 H 147/81 H 149/75 H Pulse Oximetry 98 99 100 10/13/21 12:06 10/13/21 12:16 10/13/21 12:26 Temperature Pulse Rate 62 53 L 53 L Respiratory Rate 18 16 16 Blood Pressure 172/76 H 183/85 H 181/81 H Pulse Oximetry 98 99 97 10/13/21 12:36 10/13/21 12:46 Temperature Pulse Rate 56 L 53 L Respiratory Rate 16 16 Blood Pressure 183/83 H 186/86 H Pulse Oximetry 98 98 Intake/Output Intake/Output: Intake & Output 10/10/21 10/11/21 10/12/21 10/13/21 23:59 23:59 23:59 23:59 Intake Total 3955 50 Output Total 0 Balance 3955 50 Meds/Results Medications: Active Medications Generic Name Dose Route Start Last Admin Trade Name Freq PRN Reason Stop Dose Admin Acetaminophen 1,000 mg 10/12/21 16:18 10/12/21 19:00 Acetaminophen 500 Mg Tab
--- NOTE | 2021-10-13 17:07 | PC.NURSE ---
Patient received from PACU. Report received from SADAF Dean.
[2021-10-13] MEDS: amLODIPine BESYLATE 5 MG TABLET PO (18:51)
[2021-10-14] MEDS: HYDROcodone/acetaminophen (*CRX) 5-325 MG TABLET 1 TAB PO (05:07)
[2021-10-14 05:26] LABS: Basophils Percent Auto 0.9 % (0.2-1.2); Eosinophils Absolute Auto 0.1 K/mm3 (0-0.3); Eosinophils Percent Auto 1.3 % (0-4.4); Hematocrit 35.1 % (37.0-47.0); Hemoglobin 11.3 g/dL (12.0-15.0); Immature Granulocyte Absolute 0.01 K/mm3 (0.00-0.031); Immature Granulocyte Percent A 0.2 % (0-0.5); Lymphocytes Absolute Auto 2.12 K/mm3 (0.9-3.2); Lymphocytes Percent Auto 45.9 % (18.3-44.2); Mean Corpuscular HGB Conc 32.2 g/dl (32-36); Mean Corpuscular Hemoglobin 28.8 pg (26-34); Mean Corpuscular Volume 89.3 fl (80-100); Mean Platelet Volume 11.2 fl (7.4-10.4); Monocytes Absolute Auto 0.4 K/mm3 (0.1-0.6); Monocytes Percent Auto 9.3 % (2.6-8.5); Neutrophils Percent Auto 42.4 % (45.5-73.1); Platelet Count Result 134 k/mm3 (150-375); Red Blood Count 3.93 M/mm3 (4.2-5.4); Red Cell Distribution Width 14.3 % (11.5-14.5); White Blood Count 4.6 K/mm3 (4.5-10.0)
[2021-10-14 05:32] LABS: Alanine Aminotransferase 90 U/L (4-35); Albumin Level 3.5 g/dL (3.5-5.1); Alkaline Phosphatase 224 U/L (38-126); Anion Gap 8 mmol/L (8-16); Aspartate Amino Transferase 76 U/L (14-36); Bilirubin,Total 0.5 mg/dL (0.2-1.3); Blood Urea Nitrogen 21 mg/dL (7-17); Calcium 8.9 mg/dL (8.4-10.2); Carbon Dioxide 25 mmol/L (22-30); Chloride 106 mmol/L (98-107); Estimated CRCL calculation 55 ml/min; Estimated Glomerular Filt Rate 50; Glucose 91 mg/dL (65-110); Magnesium 1.7 mg/dL (1.6-2.3); Potassium 3.9 mmol/L (3.4-5.0); Sodium 139 mmol/L (137-145)
[2021-10-14 06:00] VITALS: BP 110/70; PULSE 57; RESP 14; TEMP 36.6; O2SAT 95
--- NOTE | 2021-10-14 06:30 | PM.DS ---
DS: Admitting Diagnosis Discharge Date Date of service 10/14/2021 at 6:30 a.m. Admitting Diagnosis choledocholithiasis DS: Discharge Diagnosis Discharge Diagnosis (1) Choledocholithiasis: Code(s): K80.50 - Calculus of bile duct without cholangitis or cholecystitis without obstruction Status: Acute Assessment and Plan: MRCP from 09/20 showed choledocholithiasis says with mild dilatation of the common bile duct abdominal CT was negative GI has been consulted ERCP performed with 2 stone extractions continue IV fluids, antiemetics, pain medications supportive care Advance diet as tolerated per GI (2) Elevated LFTs: Code(s): R79.89 - Other specified abnormal findings of blood chemistry Status: Acute Assessment and Plan: probably related to the 2 stones the removed by ERCP yesterday AST/ALT 76/90, alk-phos 224 related to the findings of the MRCP trend liver enzymes, for resolution GI on board (3) Abdominal pain: Code(s): R10.9 - Unspecified abdominal pain Status: Acute Assessment and Plan: resolved after ERCP was thought to be intussusception, was not after further review abdominal CT shows no acute abnormalities probably related to the choledocholithiasis pain management antiemetics NPO (4) Hyperlipidemia: Code(s): E78.5 - Hyperlipidemia, unspecified Status: Acute Assessment and Plan: continue home atorvastatin (5) CRISTIANE (acute kidney injury): Code(s): N17.9 - Acute kidney failure, unspecified Status: Acute Assessment and Plan: BUN creatinine elevated 23/1.10 continue rehydration with normal saline trend labs labs in a.m. avoid nephrotoxic medications (6) HTN (hypertension): Code(s): I10 - Essential (primary) hypertension Status: Acute Assessment and Plan: looks better controlled today at 110/70 Added amlodipine and PRN hydralazine with parameters blood pressure 186/86, 183/83, 172/86 on 10/13/21 continue home meds trend blood pressure adjust therapy as indicated DS: Summary Hospital Course Hospital Course: patient is a 61-year-old female with a past medical history of GERD, hyperlipidemia, cholecystectomy who presented to the ED for severe abdominal pain. Patient had recently had an MRCP which showed choledocholithiasis. Patient has been following Dr. Mahajan outpatient, And had an elective ERCP scheduled in the next several weeks. Patient was having severe abdominal pain and was unable to wait any longer so she came to the ED. upon arrival CT was performed which showed normal abdomen. GI was consulted and took the patient down to GI lab for an ERCP yesterday 10/12/2021 and was able to remove 2 stones. Patient is able to tolerate a low-fat diet and stated that she had a headache and was experiencing pain and stiff neck. Patient still does have some epigastric pain however she stated that is not going to her shoulder blades at this time. AST and ALT have been trended throughout the visit due to elevation. Today AST is 768 ALT is 90. Blood pressure has been a problem since admission and she has been running 180s over 80s. Amlodipine has been added to her regimen and blood pressure has been stable 110/70 since. Chest x-ray did note possible inflammatory/ infection/nodule and would like the patient to follow-up in 2 weeks for another chest x-ray for improvement. Patient feels better today. She stated that she had a chicken sandwich and was able to eat with no pain noted. She is ready to go home however still has concerns about the stones reforming. Patient denies chest pain, shortness of breath, nausea, vomiting, diarrhea, constipation, sweats, fevers, chills. Status at Discharge Functional status at discharge: independent ambulation Overall status at discharge: patient is progressing back to baseline Time Spent
--- NOTE | 2021-10-14 06:30 | P.DS_ITS ---
DS: Admitting Diagnosis Discharge Date Date of service 10/14/2021 at 6:30 a.m. Admitting Diagnosis choledocholithiasis DS: Discharge Diagnosis Discharge Diagnosis (1) Choledocholithiasis: Code(s): K80.50 - Calculus of bile duct without cholangitis or cholecystitis without obstruction Status: Acute Assessment and Plan: * MRCP from 09/20 showed choledocholithiasis says with mild dilatation of the common bile duct * abdominal CT was negative * GI has been consulted * ERCP performed with 2 stone extractions * continue IV fluids, antiemetics, pain medications * supportive care * Advance diet as tolerated per GI (2) Elevated LFTs: Code(s): R79.89 - Other specified abnormal findings of blood chemistry Status: Acute Assessment and Plan: * probably related to the 2 stones the removed by ERCP yesterday * AST/ALT 76/90, alk-phos 224 * related to the findings of the MRCP * trend liver enzymes, for resolution * GI on board (3) Abdominal pain: Code(s): R10.9 - Unspecified abdominal pain Status: Acute Assessment and Plan: * resolved after ERCP * was thought to be intussusception, was not after further review * abdominal CT shows no acute abnormalities * probably related to the choledocholithiasis * pain management * antiemetics * NPO (4) Hyperlipidemia: Code(s): E78.5 - Hyperlipidemia, unspecified Status: Acute Assessment and Plan: * continue home atorvastatin (5) CRISTIANE (acute kidney injury): Code(s): N17.9 - Acute kidney failure, unspecified Status: Acute Assessment and Plan: * BUN creatinine elevated 23/1.10 * continue rehydration with normal saline * trend labs * labs in a.m. * avoid nephrotoxic medications (6) HTN (hypertension): Code(s): I10 - Essential (primary) hypertension Status: Acute Assessment and Plan: * looks better controlled today at 110/70 * Added amlodipine and PRN hydralazine with parameters * blood pressure 186/86, 183/83, 172/86 on 10/13/21 * continue home meds * trend blood pressure * adjust therapy as indicated DS: Summary Hospital Course Hospital Course: patient is a 61-year-old female with a past medical history of GERD, hyperlipidemia, cholecystectomy who presented to the ED for severe abdominal pain. Patient had recently had an MRCP which showed choledoch olithiasis. Patient has been following Dr. Mahajan outpatient, And had an elective ERCP scheduled in the next several weeks. Patient was having severe abdominal pain and was unable to wait any longer so she came to the ED. upon arrival CT was performed which showed normal abdomen. GI was consulted and took the patient down to GI lab for an ERCP yesterday 10/12/2021 and was able to remove 2 stones. Patient is able to tolerate a low-fat diet and stated that she had a headache and was experiencing pain and stiff neck. Patient still does have some epigastric pain however she stated that is not going to her shoulder blades at this time. AST and ALT have been trended throughout the visit due to elevation. Today AST is 768 ALT is 90. Blood pressure has been a problem since admission and she has been running 180s over 80s. Amlodipine has been added to her regimen and blood pressure has been stable 110/70 since. Chest x-ray did note possible inflammatory/ infection/nodule and would like the patient to follow-up in 2 weeks for another chest x-ray for improvement. Patient f
[2021-10-14 08:01] LABS: Troponin I < 0.012 ng/mL (0.000-0.034)
[2021-10-14] MEDS: LOSARTAN POTASSIUM 100 MG TABLET PO (08:50)
[2021-10-14] MEDS: amLODIPine BESYLATE 5 MG TABLET PO (08:50)
[2021-10-14] MEDS: hydroCHLOROthiazide 25 MG TABLET PO (08:50)
[2021-10-14] MEDS: PANTOPRAZOLE 40 MG TABLET PO (08:50)
--- NOTE | 2021-10-14 09:29 | WPDGIPROGNO ---
Progress Note: A&P Assessment and Plan (1) Choledocholithiasis: Code(s): K80.50 - Calculus of bile duct without cholangitis or cholecystitis without obstruction Status: Acute Assessment and Plan: Two large gallstones removed from the common duct yesterday. Patient improved today. Plan to discharge on low-fat diet. She has had previous cholecystectomy. Follow-up LFTs advised in 1-2 weeks. She should follow up with primary care service as an outpatient. Follow up in GI office if pain recurs. (2) Elevated LFTs: Code(s): R79.89 - Other specified abnormal findings of blood chemistry Status: Acute Assessment and Plan: Monitor LFTs after discharge until resolution advised. Subjective Date/time seen: 10/14/21 09:29 Patient has deals states she feels better today. Much improved having had her common duct stones removed. Still some achiness in her shoulder remains period Review of Systems Review of Systems: All systems reviewed & are unremarkable except as noted in HPI and below Exam Narrative: physical exam patient is alert. Afebrile and anicteric. Lungs are clear. Heart without murmur. Abdomen bowel sounds present soft nontender with no organomegaly. No tenderness. Objective Data Vital Signs Vital Signs: Vital Signs - 24 hr 10/13/21 09:49 10/13/21 11:46 10/13/21 11:56 Temperature 97.4 F L 96.8 F L Pulse Rate 69 65 58 L Respiratory Rate 20 18 18 Blood Pressure 154/82 H 147/81 H 149/75 H Pulse Oximetry 98 99 100 10/13/21 12:06 10/13/21 12:16 10/13/21 12:26 Temperature Pulse Rate 62 53 L 53 L Respiratory Rate 18 16 16 Blood Pressure 172/76 H 183/85 H 181/81 H Pulse Oximetry 98 99 97 10/13/21 12:36 10/13/21 12:46 10/13/21 14:25 Temperature 97 F L Pulse Rate 56 L 53 L 56 L Respiratory Rate 16 16 12 Blood Pressure 183/83 H 186/86 H 172/68 H Pulse Oximetry 98 98 99 10/13/21 17:30 10/13/21 21:21 10/14/21 06:00 Temperature 98.1 F 97.8 F Pulse Rate 66 57 L Respiratory Rate 18 14 Blood Pressure 154/72 H 132/87 110/70 Pulse Oximetry 97 95 Intake/Output Intake/Output: Intake & Output 10/11/21 10/12/21 10/13/21 10/14/21 23:59 23:59 23:59 23:59 Intake Total 3955 50 400 Output Total 0 0 Balance 3955 50 400 Meds/Results Medications: Active Medications Generic Name Dose Route Start Last Admin Trade Name Freq PRN Reason Stop Dose Admin Acetaminophen 1,000 mg 10/12/21 16:18 10/12/21 19:00 Acetaminophen 500 Mg Tablet PO 1,000 mg Q6H PRN Administration Mild Pain (1-3) or Fever Hydrocodone Bitart/Acetaminophen 1 tab 10/12/21 16:18 10/14/21 05:07 Hydrocodone/Acetaminophen (*Crx) 5-325 Mg Tablet PO 1 tab Q4H PRN Administration Pain Rated 4-6 Amlodipine Besylate 5 mg 10/13/21 17:10 10/14/21 08:50 Amlodipine Besylate 5 Mg Tablet PO 5 mg QAM SONALI Administration Fluticasone Propionate 2 spray 10/12/21 15:45 Fluticasone Propionate 0.05% Na Spr 16 Gm Btl (*Bkc) NASAL DAILY PRN Nasal Congestion Hydralazine HCl 10 mg 10/13/21 17:09 Hydralazine Hcl 20 Mg/Ml Vial IV PUSH Q8H PRN Blood Pressure - High Hydrochlorothiazide 25 mg 10/13/21 09:00 10/14/21 08:50 Hydrochlorothiazide 25 Mg Tablet PO 25 mg DAILY SONALI Administration Hydromorphone HCl 0.5 mg 10/12/21 16:18 Hydromorphone Hcl Inj (*Crx) 1 Mg/Ml Syr IV PUSH Q3H PRN Pain Rated 7-10 Losartan Potassium 100 mg 10/13/21 09:00 10/14/21 08:50 Losartan Potassium 100 Mg Tablet PO 100 mg DAILY SONALI Administration Ondansetron HCl 4 mg 10/12/21 02:33 Ondansetron Inj 4 Mg/2 Ml Vial IV PUSH Q4H PRN Nausea Pantoprazole Sodium 40 mg 10/12/21 21:00 10/14/21 08:50 Pantoprazole 40 Mg Tablet PO 40 mg Q12HR SONALI Administration Radiology Results: ITS Impressions Chest X-Ray 10/11/21 23:46 IMPRESSION: 1. Minimal airspace opacity of the left/lower lung zone which may b
== END 2021-10-14 12:10 | disposition home or self-care (01) ==
LOC: ANHED 10-12 03:18 → ANHSUROVER 10-12 04:35 → ANH2MED 10-13 16:34
PROVIDERS: Internal Medicine Gastroenterology; Nurse Practitioner; Admitting Provider Internal Medicine; Emergency Provider Emergency Medicine; PCP Internal Medicine; Visit Provider Internal Medicine
PROC: (CPT 43260; principal; 2021-10-13 11:30)
DX: K80.50 Calculus of bile duct without cholangitis or cholecystitis without obstruction (principal); I10 Essential (primary) hypertension; N17.9 Acute kidney failure, unspecified; E66.9 Obesity, unspecified; E78.5 Hyperlipidemia, unspecified; E55.9 Vitamin D deficiency, unspecified; K21.9 Gastro-esophageal reflux disease without esophagitis; R79.89 Other specified abnormal findings of blood chemistry; Z90.49 Acquired absence of other specified parts of digestive tract
CPT/HCPCS: 43264; 43262; 36415; 71045; 74176; 74329; 80053; 81001; 83605; 83690; 83735; 84484; 85025; 85610; 85730; 87086; 93005; 96361; 96365; 96375; 99285; A9270; C9113; G0378; J0131; J2704; J7030; J7120

== ENCOUNTER 2021-10-25 09:28 | Outpatient (CLI) | payer OTHER, SELFPAY ==
--- NOTE | ~2021-10-25 | XR_ITS ---
XR chest 2V DATE: 10/25/2021 10:02 INDICATION: Solitary pulmonary nodule; follow-up exam TECHNIQUE: PA and lateral views COMPARISON: 10/11/2021 portable AP chest at 1329 hours FINDINGS: Normal heart size. Aortic arch calcification. No hilar or mediastinal enlargement. No pulmonary infiltrate or consolidation, pleural effusion or pulmonary vascular congestion or pneumo thorax. Status post anterior lower cervical spine surgical fusion. Status post cholecystectomy. IMPRESSION: No active cardiopulmonary disease Reviewed, dictated and finalized at location E. CRITIC
[2021-10-25 10:35] LABS: Lipase 269 U/L (23-300)
== END 2021-10-25 09:29 | disposition home or self-care (01) ==
PROVIDERS: PCP Internal Medicine; Referring Provider Nurse Practitioner; Visit Provider Internal Medicine Gastroenterology
DX: R91.1 Solitary pulmonary nodule (principal); K80.50 Calculus of bile duct without cholangitis or cholecystitis without obstruction; N17.9 Acute kidney failure, unspecified; R79.89 Other specified abnormal findings of blood chemistry
CPT/HCPCS: 36415; 71046; 83690

== ENCOUNTER → 2022-06-13 13:55 | Outpatient (CLI) | payer OTHER, SELFPAY ==
--- NOTE | ~2022-06-13 | MM_ITS ---
EXAMINATION: MM screening [facility] HISTORY: Screening mammogram TECHNIQUE: Craniocaudal and mediolateral oblique 3-D tomosynthesis images were obtained and synthetic 2-D images were generated. CAD analysis was submitted and interpreted. COMPARISON: 06/15/2018, 11/12/2015, 10/07/2013 BREAST PARENCHYMAL COMPOSITION: There are scattered areas of fibroglandular density. FINDINGS: There is no suspicious mass, calcification, or architectural distortion to suggest malignan cy in either breast. There has been no suspicious interval change. IMPRESSION: 1. No mammographic evidence of malignancy. 2. Recommend routine screening mammography in one year. BI-RADS Category 1: Negative Reviewed, dictated and finalized at location A.
== END ==
PROVIDERS: PCP Internal Medicine; Visit Provider Obstetrics & Gynecology
DX: Z12.31 Encounter for screening mammogram for malignant neoplasm of breast (principal)
CPT/HCPCS: 77063; 77067

== ENCOUNTER 2022-08-02 08:34 | Outpatient (CLI) | payer OTHER, SELFPAY ==
--- NOTE | ~2022-08-02 | US_ITS ---
EXAMINATION: US abdomen complete DATE: 08/02/2022 10:07 INDICATION: Abnormal blood chemistry TECHNIQUE: Multiple grayscale and Doppler ultrasound images of the abdomen were obtained. COMPARISON: 12/22/2013; MRI, 09/20/2021 FINDINGS: Bowel gas obscures visualization of the pancreas. The liver is normal with normal echogenic ity and echotexture. No surface nodularity. Normal hepatopetal flow in the main portal vein. The gall bladder is surgically absent. The normal common bile duct measures 3 mm. The visualized portions of t he aorta and inferior vena cava are normal. The right kidney measures 10.2 x 6.1 x 4.9 cm. The left kidney measures 9.3 x 5.0 x 5.4 cm and contai ns a 12 mm cyst. The kidneys demonstrate normal parenchymal echogenicity. There is no hydronephrosis. The spleen is normal in appearance and measures 9.2 cm. IMPRESSION: 1. No sonographic correlate for the patient's symptoms. Reviewed, dictated and finalized at location A.
== END 2022-08-02 08:35 | disposition home or self-care (01) ==
PROVIDERS: PCP Internal Medicine; Visit Provider Internal Medicine Gastroenterology
DX: R79.89 Other specified abnormal findings of blood chemistry (principal)
CPT/HCPCS: 76700

== ENCOUNTER 2022-08-25 09:40 | Outpatient (CLI) | payer OTHER, SELFPAY ==
--- NOTE | ~2022-08-25 | XR_ITS ---
EXAMINATION: XR barium swallow modified DATE: 08/25/2022 10:19 INDICATION: Dysphagia. Stuck feeling. Burning pain. TECHNIQUE: The patient was given barium-containing material of multiple consistencies to swallow by mariano gutiérrez speech pathologist while I performed fluoroscopy. Dose-area product was [id number] Gy-cm2. FINDINGS: Oral Stage: Within functional limits Pharyngeal Phase: Within functional limits Cervical/Esophageal Stage: Within functional limits IMPRESSION: Modified esophagram findings as above. Please refer to the speech therapy report for spec [facility] recommendations. Reviewed, dictated and finalized at Location [facility]. Reviewed, dictated and finalized at location A. N WINDER IMPRESSION: Modified esophagram findings as above. Please refer to the speech t herapy report for specific recommendations.
--- NOTE | 2022-08-25 10:43 | REHSTMBS ---
Assessment and note entered by Brooklyn Gilbert, [facility] Modified Barium Swallow Evaluation Feeding Type Recommended Oral Food Consistency Regular, Level 7 Liquid Consistency Thin (0) ST Clinical Summary MODIFIED BARIUM SWALLOW STUDY (MBSS) This patient was seen for a Modified Barium Swallow study at the request of her physician. She reports a history of GERD, hiatal hernia, ERCP, EGD, gall bladder removal, 2 parathyroid surgeries , and surgeries on her neck for fusions. Patient reports that she feels that food sits at the top of her throat. She reports also occasional severe episodes of GERD including one occasion last week when she consumed an [place] salad with a beer, had hours of heartburn, pain in her ears, back of the neck and between the shoulder blades. Today the patient was presented with graduated amounts of thin liquid contrast medium and pudding mixed with semi-solid contrast medium, and fruit and cracker both coated with pudding mixture. She elicited quick swallows with only trace vallecular residue after swallowing. No evidence of penetration or aspiration and no apparent risk. Results indicate this patient may remain on a Regular Diet with Regular Liquids. She was cautioned to follow GERD guidelines as strictly as possible and remain on any medication prescribed by her physician. She was also educated in the use of head flexion (chin tuck) to facilitate smoother swallows and to facilitate avoiding penetration/aspiration of material into the airway . Thank you for this referral.
== END 2022-08-25 09:41 | disposition home or self-care (01) ==
PROVIDERS: PCP Internal Medicine; Visit Provider Internal Medicine Gastroenterology
DX: R13.10 Dysphagia, unspecified (principal)
CPT/HCPCS: 92611

== ENCOUNTER 2022-10-18 08:52 | Outpatient (CLI) | payer OTHER, SELFPAY ==
--- NOTE | 2022-10-23 17:06 | WPDHOLTEREM ---
Holter/Event Monitor Holter/Event Monitor Date of procedure: 10/18/22 Holter/Event Procedure: 48 Hr Holter Monitor Indications: Cardiac arrhythmia Conclusion: 1. 48 hour holter monitor on 10/18/22. 2. Underlying rhythm is sinus rhythm. HR range 42-129 bpm; average HR 68 bpm. 3. There are 27 premature supraventricular complexes and 2 supraventricular couplets. No supraventricular tachycardia. 4. There are 56 premature ventricular complexes. No ventricular tachycardia. 5. No sinoatrial or atrioventricular blocks. No significant pauses greater than 2 seconds. 6. Patient reports symptoms of headache and shortness of breath which demonstrate sinus rhythm, HR range 66-101 bpm.
== END 2022-10-18 08:53 | disposition home or self-care (01) ==
LOC: ANHCARD 08:53
PROVIDERS: PCP Internal Medicine; Visit Provider Internal Medicine
DX: I49.8 Other specified cardiac arrhythmias (principal); R51.9 Headache, unspecified; R06.02 Shortness of breath
CPT/HCPCS: 93225; 93226

== ENCOUNTER → 2023-07-05 13:01 | Outpatient (CLI) | payer MEDICARE, OTHER, SELFPAY ==
--- NOTE | ~2023-07-05 | MM_ITS ---
EXAMINATION: MM screening [facility] HISTORY: Screening TECHNIQUE: Craniocaudal and mediolateral oblique 3-D tomosynthesis images were obtained and synthetic 2-D images were generated. CAD analysis was submitted and interpreted. COMPARISON: Comparison to multiple prior studies sequentially, with oldest reviewed study dated 09/15. BREAST PARENCHYMAL COMPOSITION: There are scattered areas of fibroglandular density. FINDINGS: There is no evidence of suspicious mass, calcification, or architectural distortion to sugg est malignancy in either breast. There has been no suspicious interval change. IMPRESSION: 1. No mammographic evidence of malignancy. 2. Recommend routine screening mammography in one year. BI-RADS Category 1: Negative Reviewed, dictated and finalized at location A.
== END ==
PROVIDERS: PCP Obstetrics & Gynecology; Visit Provider Obstetrics & Gynecology
DX: Z12.31 Encounter for screening mammogram for malignant neoplasm of breast (principal)
CPT/HCPCS: 77063; 77067

== ENCOUNTER 2023-08-06 13:23 | Outpatient (CLI) | payer MEDICARE, OTHER, SELFPAY ==
--- NOTE | 2023-08-07 13:42 | WPDPFTINT ---
PFT Procedure Performed PFT Procedure Performed Spirometry with Pre/Post Bronchodilator Plethysmography (Lung Vol) Diffusing Cap (DLCO) Flow Vol Loop PFT Interpretation Lung volumes were measured with the body plethysmography method. The diminished expiratory reserve volume is related to obesity. The remaining lung volumes are unremarkable. Spirometry showed normal expiratory flow rates and a normal FEV1 to FVC ratio of 80%. Following administration of a bronchodilator there was no significant increase in expiratory flow rates. Lung diffusion capacity is within the normal range at 85% predicted. The flow volume loop is unremarkable. Impression: Spirometry, lung volumes, lung diffusion capacity all within the normal range.
== END 2023-08-06 13:24 | disposition home or self-care (01) ==
LOC: ANHPFT 13:24
PROVIDERS: PCP Obstetrics & Gynecology; Visit Provider Internal Medicine
DX: R06.00 Dyspnea, unspecified (principal)
CPT/HCPCS: 94060; 94726; 94729

== ENCOUNTER 2023-08-09 09:34 | Outpatient (CLI) | payer MEDICARE, OTHER, SELFPAY ==
--- NOTE | 2023-08-09 09:50 | ECHO_ITS ---
Patient Info Name: Savanna Veliz Age: 63 years : 1960 Gender: Female Ht: 65 in Wt: 220 lbs BSA: 2.18 m2 HR: 66 bpm BP: 132 / 97 mmHg Heart Rhythm: Sinus Rhythm Technical Quality: Good Exam Date: 08/09/2023 10:03 AM Exam Location: [facility] Patient Status: Outpatient Admit Date: 08/09/2023 Staff Ordering Physician: Bandar Smith DO Paving Block Cutter: Tanya Massey RDCS Attending Provider: Bandar Smith DO Referring Physician: Sarah BOLANOS; Exam Type: CA echo doppler color flow Study Info Indications - other forms of dyspnea Complete two-dimensional, color flow and Doppler transthoracic echocardiogram is performed. Summary 1. Complete two-dimensional, color flow and Doppler transthoracic echocardiogram is performed. 2. Left ventricular chamber dimension is normal. 3. Left ventricular systolic function is normal, estimated at 60-65%. 4. The left ventricular diastolic function is grade I diastolic dysfunction. 5. E/e' 7 is not elevated. 6. The mitral valve has mildly calcified annulus. 7. There is trace tricuspid valve regurgitation. 8. No pulmonary hypertension, estimated pulmonary arterial systolic pressure is 30 mmHg. Left Ventricle E/e' 7 is not elevated. Left ventricular chamber dimension is normal. Left ventricular systolic function is normal, estimated at 60-65%. The left ventricular diastolic function is grade I diastolic dysfunction. Right Ventricle Right ventricular systolic function is normal and with normal TAPSE 2.8 cm. Right ventricular chamber dimension is normal. Left Atria Left atrial chamber dimension is normal. Right Atria Right atrial chamber dimension is normal. Aortic Valve The aortic valve is trileaflet. There is no aortic valve stenosis. There is no aortic valve regurgitation. Pulmonic Valve There is no pulmonic regurgitation. Mitral Valve The mitral valve has mildly calcified annulus. There is no mitral valve stenosis. There is no mitral valve regurgitation. Tricuspid Valve There is trace tricuspid valve regurgitation. No pulmonary hypertension, estimated pulmonary arterial systolic pressure is 30 mmHg. Pericardium/Pleural There is no pericardial effusion. Inferior Vena Cava Normal inferior vena cava with >50% collapse upon inspiration consistent with normal right atrial pressure, 5 mmHg. Aorta The aortic root size at the sinus of Valsalva is normal. Left Ventricular Outflow Tract Name Value Normal LVOT 2D LVOT Diameter 1.9 cm LVOT Doppler LVOT Peak Gradient 5 mmHg LVOT Mean Gradient 3 mmHg LVOT VTI 36 cm LVOT VTI/AV VTI Ratio 1.0 LVOT Stroke Volume 103 ml LVOT CO 6.2 l/min LVOT CI 2.8 l/min/m2 Pulmonic Valve Name Value Normal RVOT Doppler RVOT
== END 2023-08-09 09:35 | disposition home or self-care (01) ==
PROVIDERS: PCP Internal Medicine; Visit Provider Internal Medicine
DX: R06.09 Other forms of dyspnea (principal); R93.1 Abnormal findings on diagnostic imaging of heart and coronary circulation; I34.81 Nonrheumatic mitral (valve) annulus calcification; I07.1 Rheumatic tricuspid insufficiency; I10 Essential (primary) hypertension
CPT/HCPCS: 93306

== ENCOUNTER → 2023-08-13 07:38 | Outpatient (CLI) | payer MEDICARE, OTHER, SELFPAY ==
--- NOTE | ~2023-08-13 | US_ITS ---
US abdomen complete EXAMINATION: US Abdomen Complete INDICATION: Elevated liver function tests PROCEDURE: Realtime High Resolution abdomen ultrasound. COMPARISON: No prior studies for comparison FINDINGS: Gallbladder is surgically absent. Common bile duct measures 6 mm. Liver echotexture within normal limits without focal mass. Pancreas within normal limits. Pancreati c tail is obscured by bowel gas. Spleen is unremarkeable. Renal echotexture is within normal limits bilaterally without hydronephrosis, contour deforming mass or renal stone. Right kidney measures 9.1 cm. Left kidney measures 9.3 cm. Visualized aspects of the aorta and IVC are within normal limits. Portal vein is patent. No sonograph ic Garcia's sign indicated by the technologist. IMPRESSION: 1: Hepatic steatosis. Reviewed, dictated and finalized at location A. IMPRESSION: 1: Hepatic steatosis.
== END ==
PROVIDERS: PCP Internal Medicine; Visit Provider Internal Medicine Gastroenterology
DX: K76.0 Fatty (change of) liver, not elsewhere classified (principal)
CPT/HCPCS: 76700

== ENCOUNTER → 2023-08-15 14:43 | Outpatient (CLI) | payer MEDICARE, OTHER, SELFPAY ==
--- NOTE | ~2023-08-15 | DEXA_ITS ---
Bone Density Report Name: RICHARD AG Age: 63 Sex: Female Ethnicity: White Date of : 1960 Indication: hyperparathyroidism; height loss; prior fracture; hysterectomy; postmenopausal Referring Provider: YUDITH AGUIRRE Study: Bone densitometry was performed. Exam Date: August 15, 2023 Accession number: [id number] Bone Density: Region BMD T-score Z-score Classification AP Spine (L1, L2, L3) 0.981 -0.3 1.4 Normal Femoral Neck (Left) 0.707 -1.3 0.3 Osteopenia Total Hip (Left) 0.930 -0.1 1.2 Normal Femoral Neck (Right) 0.735 -1.0 0.5 Normal Total Hip (Right) 0.867 -0.6 0.6 Normal Total Hip Mean 0.899 -0.4 0.9 Normal World Health Organization criteria for BMD impression classify patients as: Normal (T-score at or above -1.0), Osteopenia (T-score between -1.0 and -2.5), or Osteoporosis (T-score at or below -2.5). 10-year Fracture Risk(1): Major Osteoporotic Fracture 13% Hip Fracture 1.1% Reported Risk Factors: [place] (), Neck BMD=0.707, BMI=37.6, previous fracture (1) FRAX(R) Version 3.08. Fracture probability calculated for an untreated patient. Fracture probability may be lower if the patient has received treatment. Previous Exams: Region Exam Age BMD T-score BMD Change BMD Change Date g/cm2 vs Baseline vs Previous AP Spine(L1, L2, L3) 08/15/2023 63 0.981 -0.3 -0.023 0.005 01/26/2012 52 0.976 -0.4 -0.028 -0.028 01/29/2008 48 1.004 -0.1 Total Hip(Left) 08/15/2023 63 0.930 -0.1 -0.034 0.008 01/26/2012 52 0.922 -0.2 -0.042 -0.042 01/29/2008 48 0.964 0.2 Total Hip(Right) 08/15/2023 63 0.867 -0.6 -0.048 0.005 01/26/2012 52 0.862 -0.7 -0.053 -0.053 01/29/2008 48 0.916 -0.2 *Denotes significance at 95% confidence level, LSC for AP Spine = 0.022 g/cm2, LSC for Total Hip = 0.027 g/cm2 Clinical Information Provided by Patient: Has had a low trauma fracture Has used the following medications: Vitamin D Has the following medical conditions: Hyperparathyroidism, Hysterectomy Patient maximum height was 66 Menopause Age: 47 Does not regularly consume dairy products Drinks caffeinated beverages Onset of menses at age 14 Number of children 2 Missed period for more than 6 months in a row Impression: The patient has low bone mass, based on the Left Femoral Neck T-score.
== END ==
PROVIDERS: PCP Internal Medicine; Visit Provider Internal Medicine
DX: M81.0 Age-related osteoporosis without current pathological fracture (principal)
CPT/HCPCS: 77080

== ENCOUNTER 2024-01-21 01:56 | Day surgery (SDC) | payer MEDICARE, OTHER, SELFPAY ==
[2024-01-18 10:26] VITALS: BMI 35.2
[2024-01-21] VITALS (19 sets, daily range): BP systolic 116–141; BP diastolic 69–95; PULSE 57–73; RESP 12–24; TEMP 36.4; O2SAT 95–99; BMI 35.1
[2024-01-21 07:39] LABS: Basophils Percent Auto 0.8 % (0.2-1.2); Eosinophils Absolute Auto 0.1 K/mm3 (0-0.3); Eosinophils Percent Auto 1.6 % (0-4.4); Hematocrit 37.3 % (37.0-47.0); Hemoglobin 11.9 g/dL (12.0-15.0); Immature Granulocyte Absolute 0.01 K/mm3 (0.00-0.031); Immature Granulocyte Percent A 0.2 % (0-0.5); Lymphocytes Absolute Auto 2.25 K/mm3 (0.9-3.2); Lymphocytes Percent Auto 44.3 % (18.3-44.2); Mean Corpuscular HGB Conc 31.9 g/dl (32-36); Mean Corpuscular Hemoglobin 28.4 pg (26-34); Mean Platelet Volume 12.2 fl (7.4-10.4); Monocytes Absolute Auto 0.3 K/mm3 (0.1-0.6); Monocytes Percent Auto 6.5 % (2.6-8.5); Neutrophils Absolute Auto 2.4 K/mm3 (1.3-6.7); Neutrophils Percent Auto 46.6 % (45.5-73.1); Platelet Count Result 191 k/mm3 (150-375); Red Blood Count 4.19 M/mm3 (4.2-5.4); Red Cell Distribution Width 14.6 % (11.5-14.5); White Blood Count 5.1 K/mm3 (4.5-10.0)
[2024-01-21 07:56] LABS: Anion Gap 3 mmol/L (4-12); Blood Urea Nitrogen 27 mg/dL (7-17); Calcium 9.4 mg/dL (8.4-10.2); Carbon Dioxide 23 mmol/L (22-30); Chloride 113 mmol/L (98-107); Estimated CRCL calculation 46 ml/min; Estimated Glomerular Filt Rate 41; Glucose 98 mg/dL (65-110); Potassium 3.8 mmol/L (3.4-5.0); Sodium 139 mmol/L (137-145)
--- NOTE | 2024-01-21 08:29 | WPDMODSED ---
Moderate Sedation Note-Pt Data Patient Data Diagnosis: Intermittent chest pain hypertension dyslipidemia Present Complaint: intermittent, nonexertional chest pain Procedure to be performed/Plan: left heart catheterization Allergies Allergy/AdvReac Type Severity Reaction Status Date / Time aspirin Allergy Mild Unknown Verified 01/21/24 07:20 meperidine Allergy Mild Hives; Verified 01/21/24 07:20 hand swelling Sulfa (Sulfonamide Allergy Mild Unknown Verified 01/21/24 07:20 Antibiotics) sulfanilamide Allergy Mild Unknown Verified 01/21/24 07:20 adhesive AdvReac Mild REDNESS Verified 01/21/24 07:52 Home Medications Medication Instructions Recorded Confirmed Type ergocalciferol (vitamin D2) 1,250 50,000 unit PO WEEKLY #13 caps 11/19/23 01/18/24 Rx mcg (50,000 unit) capsule amlodipine 5 mg tablet (Norvasc) 5 mg PO QAM #90 tabs 11/21/23 01/18/24 Rx atorvastatin 20 mg tablet 20 mg PO DAILY #90 tabs 11/21/23 01/18/24 Rx hydrochlorothiazide 25 mg tablet 25 mg PO DAILY #90 tabs 11/21/23 01/18/24 Rx losartan 100 mg tablet 100 mg PO DAILY #90 tabs 11/21/23 01/18/24 Rx omeprazole 40 mg capsule,delayed 40 mg PO BID #90 caps 11/21/23 01/18/24 Rx release Current Medications: Active Medications Sodium Chloride (Normal Saline Iv) 500 mls @ 100 mls/hr IV CONT .Q5H SONALI Sedation/Anesthesia: No previous sedation/anesthesia problems (including family history). [facility] Past Medical History Medical History (Updated 01/07/24 @ 15:30 by Geovanni Rodriguez DO) Allergic rhinitis GERD (gastroesophageal reflux disease) Hyperlipidemia Hypertension Pancreatitis Vitamin D deficiency, unspecified Surgical History Surgical History H/O parathyroidectomy H/O: hysterectomy History of ERCP 2013 with biliary pancreatitis, choledocholithiasis History of foot surgery History of laparoscopic cholecystectomy 2014 History of spinal surgery Surgery on her lumbar spine via anterior approach Family History Family History Sibling Hypertension Family history of heart disease in male family member before age 55 Mother Family history of lung cancer, Onset Age: 85 Patient's mother is Father Cerebrovascular accident, Onset Age: 82 Patient's father is Other Diabetes mellitus Social History Social History Social History: patient is the and has 2 daughters with 2 grandsons. She denies having pets and would like her Christian to be her surrogate if needed. Patient wishes to be a full code at this time Smoking packs per day: 2 Smoking cigarettes per day: 40.0 Years smoked: 15 Smoking pack-years: 30.00 Smoking status: Former smoker Tobacco type: cigarettes Second hand tobacco smoke exposure: No Smoking end date: 10/15/84 Alcohol intake: current Drinks per week: 1 Alcohol use details: pt drinks once every 6months to 1 year Substance use: never Substance use type: does not use Last use: 1984 Lack of Transportation: No Lack of Food: Never True Current Housing: I Have Housing Concerned About Future Housing: No Difficulty Paying Gas/Electric Bills: No Difficulty Paying for Meds: No Currently Unemployed: No Education: High School Diploma/GED Difficulty w/ Childcare or Family Care: No Living arrangements: with family Occupation/Education: occupation Gender identity (if verbalized by the patient): Female Sexual Orientation (if Verbalized by the Patient): Straight or Heterosexual Spiritual care concerns: No Agree to blood products: Yes Mod Sed Physical Exam Physical Exam Pre Procedural Exam: Normal: Neck, Throat, Airway, Lungs, Heart Size, Heart Rate, Heart Rhythm and Extremities and Variation: Appearance ( obese white female no apparent distres
--- NOTE | 2024-01-21 09:00 | WPDCARDPROC ---
Cardiac Cath Procedure Note Date of procedure:: 01/21/24 Performing physician:: Flaco Butler MD Indication:: intermittent chest pain Brief clinical history:: this is a 63-year-old woman with hypertension, dyslipidemia and family history of probable and coronary disease. She has been reporting symptoms of intermittent chest pain for more than a year. Recent nuclear stress testing was negative. Because of ongoing symptoms angiography has been recommended Procedure Procedure performed:: left ventriculogram coronary angiogram Sedation/Medication given:: fentanyl 50 mg Versed 2 mg case start time 8:42 a.m. case end time 8:56 a.m. sedation provided by Kiley Stewart RN, trained observer Access site:: right femoral artery Estimated blood loss:: 25 cc Procedure note:: patient was brought to the cardiac catheterization lab in the postabsorptive state where the right femoral triangle was prepped and draped the usual fashion. Anesthesia was given with 1% lidocaine infiltrated locally. Using the modified Seldinger technique a 5 [place] sheath was placed into the right femoral artery after this left heart catheterization was carried out a 5 [place] angled pigtail catheter used to measure left-sided hemodynamics and to inject the left ventriculogram in the are AO projection. Following this standard 5 [place] FL4 and JR4 catheters were used to engage and inject the left and right coronary arteries respectively. The cineangiograms were then reviewed and the case was terminated. An angiogram was performed to the femoral artery through the sheath after which I elected to have the sheath removed with direct manual compression. This procedure was well tolerated and uncomplicated there were no signs of groin hematoma upon leaving the cardiac catheterization lab. Findings:: Hemodynamics: Central aortic pressure is 130/66 left ventricle 1 36/0 end-diastolic 10 there is no systolic gradient on pullback across the aortic valve. Left ventricle: The left ventricle is normal in size all segments contract appropriately the global ejection fraction is visually estimated to be 50%. There were no regional wall motion abnormalities. The left main coronary artery is nicely patent the left anterior descending is a medium caliber artery which extends down to around the apex the LAD its diagonal and septal branches are angiographically unremarkable. The circumflex is a medium caliber artery giving rise to the marginal branches. The circumflex system is angiographically unremarkable. The right coronary artery is dominant to the inferior wall it ends in the RPDA the RPL branch is extremely small. Angiographically there are no abnormalities. Conclusion:: 1. Right coronary dominant circulation with no angiographic abnormalities 2. preserved left ventricular systolic function and normal left-sided hemodynamics 3. based on these data chest pain symptoms this patient is reporting are nonischemic Flaco Butler MD [facility]
== END 2024-01-21 14:51 | disposition home or self-care (01) ==
PROVIDERS: PCP Internal Medicine; Visit Provider Specialist
PROC: 4A023N7 Measurement of Cardiac Sampling and Pressure, Left Heart, Percutaneous Approach (ICD-10-PCS; CPT 93452; principal; 2024-01-21 08:30)
DX: R07.9 Chest pain, unspecified (principal); I10 Essential (primary) hypertension; E78.5 Hyperlipidemia, unspecified; E55.9 Vitamin D deficiency, unspecified; K21.9 Gastro-esophageal reflux disease without esophagitis; Z82.49 Family history of ischemic heart disease and other diseases of the circulatory system
CPT/HCPCS: 36415; 80048; 85025; 93458; C1887; C1894; J0461; J1644; J2250; J3010; J7040

== ENCOUNTER 2024-02-18 17:57 | Emergency (ER) | payer MEDICARE, OTHER, SELFPAY ==
--- NOTE | ~2024-02-18 | XR_ITS ---
EXAM: XR foot LT min 3V DATE: 02/18/2024 18:23 HISTORY: GREAT TOE PAIN DORSAL SIDE AND TOP OF FOOT PAIN . COMPARISON: None available. FINDINGS: Decreased mineralization. No fracture or dislocation. No lytic or blastic lesion. Mild sca ttered degenerative change. Plantar enthesopathy. No erosion or periosteal change. Soft tissues withi n normal limits. IMPRESSION: No acute osseous finding in the left foot. Reviewed, dictated and finalized at location K.
--- NOTE | 2024-02-18 18:11 | ED.LOWEXIN ---
HPI - Extremity Injury (Lower) General Chief Complaint: Extremity Injury, Lower Stated Complaint: Left Foot Pain Time Seen by Provider: 02/18/24 18:23 Source: patient, RN notes reviewed and old records reviewed Mode of arrival: ambulatory Limitations: no limitations History of Present Illness HPI Narrative: 64-year-old female presents to the [facility] with complaints of left foot pain dorsal pain distal aspect and the balls of the feet for about 1 week. Patient unsure of any injury other then increased in walking. Currently wearing orthotics Related Data Allergies Allergy/AdvReac Type Severity Reaction Status Date / Time aspirin Allergy Mild Unknown Verified 01/25/24 08:14 meperidine Allergy Mild Hives; Verified 01/25/24 08:14 hand swelling Sulfa (Sulfonamide Allergy Mild Unknown Verified 01/25/24 08:14 Antibiotics) sulfanilamide Allergy Mild Unknown Verified 01/25/24 08:14 adhesive AdvReac Mild REDNESS Verified 01/25/24 08:14 Review of Systems Review of Systems: All systems reviewed & are unremarkable except as noted in HPI and below Constitutional: Constitutional: Reports no additional constitutional complaints Eyes: Eyes: Reports no additional eye complaints ENT: Reports system reviewed and no additional complaints, except as documented Cardiovascular: Cardiovascular: Reports no additional cardiovascular complaints, Denies chest pain and Denies dyspnea Respiratory: Respiratory: Reports no additional respiratory complaints, Denies chest congestion, Denies cough and Denies dyspnea Gastrointestinal: Gastrointestinal: Reports no additional gastrointestinal complaints, Denies abdominal pain, Denies nausea and Denies vomiting Musculoskeletal: Musculoskeletal: Reports as per HPI, Denies abnormal gait and Reports arthralgias Integumentary/Breasts: Skin/Breast: Reports system reviewed and no additional complaints, except as docu Neurologic: Reports system reviewed and no additional complaints, except as documented Psychiatric: Psychiatric: Reports no additional psychiatric complaints Allergic/Immunologic: Allergic/Immunologic: Reports no additional allergic/immunologic complaints PMFSH Past Medical History Medical History Allergic rhinitis GERD (gastroesophageal reflux disease) Hyperlipidemia Hypertension Pancreatitis Vitamin D deficiency, unspecified Surgical History Surgical History H/O parathyroidectomy H/O: hysterectomy History of ERCP 2013 with biliary pancreatitis, choledocholithiasis History of foot surgery History of laparoscopic cholecystectomy 2014 History of spinal surgery Surgery on her lumbar spine via anterior approach Family History Family History Sibling Hypertension Family history of heart disease in male family member before age 55 Mother Family history of lung cancer, Onset Age: 85 Patient's mother is Father Cerebrovascular accident, Onset Age: 82 Patient's father is Other Diabetes mellitus Social History Social History Social History: patient is the and has 2 daughters with 2 grandsons. She denies having pets and would like her Christian to be her surrogate if needed. Patient wishes to be a full code at this time Smoking packs per day: 2 Smoking cigarettes per day: 40.0 Years smoked: 15 Smoking pack-years: 30.00 Smoking status: Former smoker Tobacco type: cigarettes Second hand tobacco smoke exposure: No Smoking end date: 10/15/84 Alcohol intake: current Drinks per week: 1 Alcohol use details: pt drinks once every 6months to 1 year Substance use: never Substance use type: does not use Last use: 1984 Lack of Transportation: No Lack of Food: Never True Curr
[2024-02-18 18:12] VITALS: BP 140/100; PULSE 62; RESP 14; TEMP 36.8; O2SAT 98
== END 2024-02-18 19:01 | disposition home or self-care (01) ==
PROVIDERS: Emergency Provider Nurse Practitioner; PCP Internal Medicine
DX: M79.672 Pain in left foot (principal); K21.9 Gastro-esophageal reflux disease without esophagitis; E78.5 Hyperlipidemia, unspecified; I10 Essential (primary) hypertension; E55.9 Vitamin D deficiency, unspecified; Z87.891 Personal history of nicotine dependence
CPT/HCPCS: 73630; 99213; G0463

== ENCOUNTER 2024-06-20 15:21 | Outpatient (CLI) | payer MEDICARE, OTHER, SELFPAY ==
--- NOTE | ~2024-06-20 | XR_ITS ---
EXAMINATION: XR lumbar spine 2-3V DATE: 06/20/2024 15:39 INDICATION: Dorsalgia, unspecified. TECHNIQUE: 3 views of lumbar spine were obtained. COMPARISON: None. FINDINGS: There is 10 degrees levoscoliosis of thoracolumbar spine. There is mild chronic anterior we dging of T11 vertebral body. There are changes of anterior fusion procedure L5-S1 with healed interbo dy bone graft and anterior plate and screws. There is mildly decreased disc height at L2-L3 and L3-L4 . There are endplate osteophytes at most levels. There is multilevel severe facet joint osteoarthriti s. Surgical clips in the right upper quadrant are likely from cholecystectomy. IMPRESSION: 1. Anterior fusion procedure at L5-S1. 2. Mild lumbar spondylosis. 3. Thoracolumbar levoscoliosis. Reviewed, dictated and finalized at location A.
== END 2024-06-20 15:22 | disposition home or self-care (01) ==
LOC: ANHIMG 15:24
PROVIDERS: PCP Internal Medicine; Visit Provider Internal Medicine
DX: M47.816 Spondylosis without myelopathy or radiculopathy, lumbar region (principal); M41.85 Other forms of scoliosis, thoracolumbar region; M43.27 Fusion of spine, lumbosacral region
CPT/HCPCS: 72100

== ENCOUNTER 2024-09-18 18:32 | Emergency (ER) | payer MEDICARE, OTHER, SELFPAY ==
[2024-09-18] VITALS (8 sets, daily range): BP systolic 129–148; BP diastolic 58–123; PULSE 67–75; RESP 14–18; TEMP 36.6; O2SAT 95–100
--- NOTE | ~2024-09-18 | XR_ITS ---
XR hip RT 2V w AP pelvis Ordering provider: Asim Carpio PA-C History: . fall, RLE injury . Comparison: November FINDINGS: BONES: No acute fracture or dislocation. Postoperative changes at the level of L5-S1. Degenerative ch anges of the spine. HIP JOINT SPACES: Bilateral moderate hip osteoarthritic changes. SACROILIAC JOINT SPACES/LUMBAR SPINE: The sacroiliac joint spaces are normal. Mild degenerative hemphill es of the visualized lower lumbar spine. PUBIC SYMPHYSIS: Mild pubic symphysitis. SOFT TISSUES: Normal. IMPRESSION: No acute osseous abnormality pelvis and right hip. Reviewed, dictated and finalized at location A. DREN'S MINISTRIES DIRECTOR
--- NOTE | ~2024-09-18 | XR_ITS ---
XR tibia fibula RT 2V Ordering provider: Asim Carpio PA-C History: . fall, RLE pain . Comparison: None. FINDINGS: BONES: Comminuted fracture in the proximal tibial metaphysis. Postoperative changes in the distal tib ia and fibula. JOINT SPACES: Normal. SOFT TISSUES: Normal. IMPRESSION: Comminuted fracture of the proximal tibia with extension to the knee joint space. Reviewed, dictated and finalized at location A. ERSHIP SOLICITOR IMPRESSION: Comminuted fracture of the proximal tibia with extension to the knee joint spa ce.
--- NOTE | ~2024-09-18 | XR_ITS ---
XR chest 1V Ordering provider: Asim Carpio PA-C History: 64 years Female with . FALL . Comparison: None. FINDINGS: MEDIASTINUM: The cardiac silhouette is slightly enlarged. Congestive fernando. LUNGS: No infiltrates, effusions or pneumothorax. OTHER: No free air under the diaphragm. Postoperative changes in the lower cervical area. IMPRESSION: No acute cardiopulmonary pathology. Reviewed, dictated and finalized at location A. SROOM TECHNOLOGY TECHNICIAN
--- NOTE | ~2024-09-18 | XR_ITS ---
[id number] Ordering provider: Asim Carpio PA-C History: . rt knee pain, s/p fall . Comparison: None. FINDINGS: BONES: Comminuted fracture in the proximal tibia with extension into the lateral tibial plateau and t o the joint space. JOINT SPACES: Normal. SOFT TISSUES: Normal. IMPRESSION: Comminuted fracture of the proximal tibial metaphysis with extension to the lateral tibial plateau an d to the joint. Reviewed, dictated and finalized at location A. E MACHINE TENDER IMPRESSION: Comminuted fracture of the proximal tibial metaphysis with extension to the lat eral tibial plateau and to the joint.
--- NOTE | 2024-09-18 18:38 | ED.FALL ---
HPI - Fall General Chief Complaint: Fall Stated Complaint: RLE PAIN S/P FALL OFF OF STOOL Time Seen by Provider: 09/18/24 18:34 Source: patient Mode of arrival: EMS Limitations: no limitations History of Present Illness HPI Narrative: This is a 64-year-old female who presents to the ED via EMS for chief complaint of RLE injury that occurred just prior to arrival. Patient reports that she was standing up on a bench trying to get a bug on the wall. States that the bench tipped over and caused her to fall directly onto the right leg. Patient felt that she could not get up so she called EMS. Reports she has had surgical history in the right foot but no other hip her knee surgery. Denies back pain or further sites of injury. Has numbness or weakness. Per EMS report, she received 8 mg of morphine en route Related Data Allergies Allergy/AdvReac Type Severity Reaction Status Date / Time aspirin Allergy Mild Unknown Verified 08/04/24 10:53 meperidine Allergy Mild Hives; Verified 08/04/24 10:53 hand swelling Sulfa (Sulfonamide Allergy Mild Unknown Verified 08/04/24 10:53 Antibiotics) sulfanilamide Allergy Mild Unknown Verified 08/04/24 10:53 adhesive AdvReac Mild REDNESS Verified 08/04/24 10:53 Review of Systems Review of Systems: All systems as dictated in [facility] Past Medical History Medical History Allergic rhinitis GERD (gastroesophageal reflux disease) Hyperlipidemia Hypertension Pancreatitis Vitamin D deficiency, unspecified Surgical History Surgical History H/O parathyroidectomy H/O: hysterectomy History of ERCP 2014 with biliary pancreatitis, choledocholithiasis History of foot surgery History of laparoscopic cholecystectomy 2014 History of spinal surgery Surgery on her lumbar spine via anterior approach Family History Family History (Updated 08/04/24 @ 08:59 by KAYE Smith) Sibling Hypertension Family history of heart disease in male family member before age 55 Mother Family history of lung cancer, Onset Age: 85 Father Cerebrovascular accident, Onset Age: 82 Other Diabetes mellitus Social History Social History (Updated 08/04/24 @ 10:57 by KAYE Smith) Social History: Pt is and has 2 daughters with 2 grandsons. She denies having pets and would like her Christian to be her surrogate if needed. Patient wishes to be a full code at this time. Smoking packs per day: 2 Smoking cigarettes per day: 40.0 Years smoked: 15 Smoking pack-years: 30.00 Smoking status: Former smoker Tobacco type: cigarettes Second hand tobacco smoke exposure: No Smoking end date: 10/15/84 Alcohol intake: current Drinks per week: 1 Alcohol use details: pt drinks once every 6months to 1 year Substance use: never Substance use type: does not use Last use: 1985 Do You Feel Safe in your Home?: Yes Lack of Transportation: No Lack of Food: Never True Current Housing: I Have Housing Concerned About Future Housing: No Difficulty Paying Gas/Electric Bills: No Difficulty Paying for Meds: No Currently Unemployed: No Education: High School Diploma/GED Difficulty w/ Childcare or Family Care: No Living arrangements: with family Occupation/Education: retired 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 HEAD: Normocephalic, atraumatic. EYES: PERRLA and EOMI. ENT: Nares clear, no rhinorrhea or epistaxis. Mucous membranes moist. Oropharynx without tonsillar hypertrophy exudate or other lesions. NECK: Supple. No adenopathy or masses. CHEST: No respiratory distress. Clear to auscultation. No wheezes rales or rhonchi HEART: Regular rate and rhythm. No murmur heard. Normal peripheral pulses. ABDOMEN: Soft, nontender, nondistended, normal active bowel sounds. MSK: RLE: Tenderness to the medial aspect of the right inferior knee. Minimal pain with log roll of the right hip. Minimal tenderness to the right ankle. Neurovascular intact distally. No gross deformity. LLE: Benign SKIN: Warm, dry, no rash. NEURO: Alert and oriented x4. No focal deficits. PSYCH: Normal mood and affect. Course Consultations Consultation #1: Spoke with Orthopedics, Dr. Ornelas who recommends the patient be transferred to higher level of care for trauma services with both sides of the tibia being fractured. Date: 09/18/24 Time: 19:50 Consultation #2: Spoke with the ED doctor Danna, he accepts the patient for transfer for this tibial plateau fracture. Date: 09/18/24 Time: 20:00 Vital Signs Vital signs: Vital Signs Temperature 97.9 F 09/18/24 18:33 Pulse Rate 69 09/18/24 18:33 Respiratory Rate 18 09/18/24 18:33 Blood Pressure 148/123 H 09/18/24 18:33 Pulse Oximetry 95 09/18/24 18:33 Oxygen Delivery Room Air 09/18/24 18:33 Temperature 97.9 F 09/18/24 18:33 Pulse Rate 70 09/18/24 21:37 Respiratory Rate 15 09/18/24 21:37 Blood Pressure 142/75 H 09/18/24 21:37 Pulse Oximetry 100 09/18/24 21:37 Oxygen Delivery Room Air 09/18/24 18:33 MDM - Fall MDM Narrative Medical decision making narrative: This is a 64-year-old female who presents to the ED for chief complaint of right lower extremity injury a home. Vitals are normal. Exam shows tenderness to the right proximal tibia. Right tib-fib x-ray: IMPRESSION: Comminuted fracture of the proximal tibia with extension to the knee joint space. Discussed the case with our orthopedic surgeon who recommends that the patient be transferred for trauma service. Spoke trauma, ED at [facility] who accepts the patient for emergent transfer. Patient is understanding and agreeable with the plan for transfer for treatment of this tibial fracture. She was given several rounds of pain medications in the ED with decent relief pain. Transferred in stable condition Lab Data 09/18/24 19:23 09/18/24 19:23 Labs: Lab Results 09/18/24 Range/Units 19:23 WBC 9.1 (4.5-10.0) K/mm3 RBC 4.18 L (4.2-5.4) M/mm3 Hgb 12.0 (12.0-15.0) g/dL Hct 36.8 L (37.0-47.0) % MCV 88.0 (80-100) fl MCH 28.7 (26-34) pg MCHC 32.6 (32-36) g/dl RDW 14.1 (11.5-14.5) % Plt Count 123 L (150-375) k/mm3 MPV 12.1 H (7.4-10.4) fl Immature Gran % (Auto) 0.2 (0-0.5) % Neut % (Auto) 62.7 (45.5-73.1) % Lymph % (Auto) 30.4 (18.3-44.2) % Johnson % (Auto) 5.8 (2.6-8.5) % Eos % (Auto) 0.5 (0-4.4) % Baso % (Auto) 0.4 (0.2-1.2) % Lymph # (Auto) 2.78 (0.9-3.2) K/mm3 Johnson # (Auto) 0.5 (0.1-0.6) K/mm3 Eos # (Auto) 0.1 (0-0.3) K/mm3 Baso # (Auto) 0.0 (0.0-0.1) K/mm3 Abs Immat Gran (auto) 0.02 (0.00-0.031) K/mm3 Absolute Neuts (auto) 5.7 (1.3-6.7) K/mm3 Absolute Nucleated RBC 0.000 (0.0-0.012) K/mm3 Nucleated RBC % 0.0 (0.0-0.2) % PT 13.9 (11.1-14.7) Seconds INR 1.0 APTT 20.0 L (22.3-36.8) Seconds Sodium 137 (137-145) mmol/L Potassium 4.0 (3.4-5.0) mmol/L Chloride 109 H (98-107) mmol/L Carbon Dioxide 22 (22-30) mmol/L Anion Gap 6 (4-12) mmol/L BUN 30 H (7-17) mg/dL Creatinine 1.30 H (0.7-1.0) mg/dL Estim Creat Clear Calc 45 ml/min Estimated GFR 41 L (59 - ) Glucose 107 (65-110) mg/dL Calcium 9.1 (8.4-10.2) mg/dL Total Bilirubin 0.6 (0.2-1.3) mg/dL AST 37 H (14-36) U/L ALT 29 (6-35) U/L Alkaline Phosphatase 118 (38-126) U/L Total Protein 7.0 (6.3-8.2) g/dL Albumin 4.1 (3.5-5.1) g/dL Critical Care Time Critical Care Time Critical Care Time: Yes Total Critical Care Time: 35 Discharge Plan Discharge Clinical Impression: Closed fracture of tibial plateau Patient Disposition: Acute Care Hospital Condition: Stable Prescriptions: No Action Wegovy 0.25 mg/0.5 mL pen injector 0.25 mg subcut WEEKLY Qty: 2 0RF Rx Instructions: administer weeks 1 through 4 of therapy atorvastatin 20 mg tablet 20 mg PO DAILY Qty: 90 3RF losartan 100 mg tablet 100 mg PO DAILY Qty: 90 3RF amlodipine [Norvasc] 5 mg tablet 5 mg PO QAM Qty: 90 3RF omeprazole 40 mg capsule,delayed release(DR/EC) See Rx Instructions .ROUTE .COMPLEX Qty: 180 3RF Dose Instruction: TAKE 1 CAPSULE BY MOUTH TWICE A DAY Rx Instructions: TAKE 1 CAPSULE BY MOUTH TWICE A DAY famotidine 40 mg tablet 40 mg PO DAILY Qty: 30 2RF ergocalciferol (vitamin D2) 1,250 mcg (50,000 unit) capsule 50,000 unit PO .every two weeks Qty: 13 0RF Rx Instructions: mondays Follow-up/Referrals: Geovanni Rodriguez DO [Primary Care Provider] -
[2024-09-18 19:27] LABS: Basophils Percent Auto 0.4 % (0.2-1.2); Eosinophils Absolute Auto 0.1 K/mm3 (0-0.3); Eosinophils Percent Auto 0.5 % (0-4.4); Hematocrit 36.8 % (37.0-47.0); Immature Granulocyte Absolute 0.02 K/mm3 (0.00-0.031); Immature Granulocyte Percent A 0.2 % (0-0.5); Lymphocytes Absolute Auto 2.78 K/mm3 (0.9-3.2); Lymphocytes Percent Auto 30.4 % (18.3-44.2); Mean Corpuscular HGB Conc 32.6 g/dl (32-36); Mean Corpuscular Hemoglobin 28.7 pg (26-34); Mean Platelet Volume 12.1 fl (7.4-10.4); Monocytes Absolute Auto 0.5 K/mm3 (0.1-0.6); Monocytes Percent Auto 5.8 % (2.6-8.5); Neutrophils Absolute Auto 5.7 K/mm3 (1.3-6.7); Neutrophils Percent Auto 62.7 % (45.5-73.1); Platelet Count Result 123 k/mm3 (150-375); Red Blood Count 4.18 M/mm3 (4.2-5.4); Red Cell Distribution Width 14.1 % (11.5-14.5); White Blood Count 9.1 K/mm3 (4.5-10.0)
[2024-09-18] MEDS: fentaNYL CITRATE INJ (*CRX) 100 MCG/2 ML VIAL 50 MCG IV PUSH (19:39)
[2024-09-18 19:41] LABS: Alanine Aminotransferase 29 U/L (6-35); Albumin Level 4.1 g/dL (3.5-5.1); Alkaline Phosphatase 118 U/L (38-126); Anion Gap 6 mmol/L (4-12); Aspartate Amino Transferase 37 U/L (14-36); Bilirubin,Total 0.6 mg/dL (0.2-1.3); Blood Urea Nitrogen 30 mg/dL (7-17); Calcium 9.1 mg/dL (8.4-10.2); Carbon Dioxide 22 mmol/L (22-30); Chloride 109 mmol/L (98-107); Estimated CRCL calculation 45 ml/min; Estimated Glomerular Filt Rate 41; Glucose 107 mg/dL (65-110); Sodium 137 mmol/L (137-145)
[2024-09-18 19:50] LABS: Prothrombin Time 13.9 Seconds (11.1-14.7)
--- NOTE | 2024-09-18 20:57 | PC.NURSE ---
attempted to call [facility] ER at this time and was asked to call back
[2024-09-18] MEDS: HYDROmorphone HCL INJ (*CRX) 1 MG/ML SYR 0.5 MG IV PUSH (21:41)
== END 2024-09-18 22:10 | disposition short-term general hospital (02) ==
LOC: ANHED 19:19
PROVIDERS: Emergency Provider Physician Assistant; PCP Internal Medicine
DX: S82.141A Displaced bicondylar fracture of right tibia, initial encounter for closed fracture (principal); I10 Essential (primary) hypertension; E78.5 Hyperlipidemia, unspecified; E55.9 Vitamin D deficiency, unspecified; K21.9 Gastro-esophageal reflux disease without esophagitis; Z87.891 Personal history of nicotine dependence; Z90.89 Acquired absence of other organs; Z90.710 Acquired absence of both cervix and uterus; Z90.49 Acquired absence of other specified parts of digestive tract; Z79.899 Other long term (current) drug therapy; W17.89XA Other fall from one level to another, initial encounter
CPT/HCPCS: 36415; 71045; 73502; 73560; 73590; 80053; 85025; 85610; 85730; 96374; 96375; 99285; J1171; J3010

== ENCOUNTER 2024-11-24 17:14 | Outpatient (NON) | payer MEDICARE, OTHER, SELFPAY ==
--- OUTSIDE RECORDS SUMMARY | 2024-11-24 17:18 | XMS_ITS | Clinical Summary ---
Author Organization [facility] Address [address] [place] [address] Care Team Providers Care Self Propelled Dredge Operator Name Role Phone Michael Geovanni Saez DO Primary Care Provider [phone] Source Comments [facility],non-owned Affiliates and Associated Physician Practices is amultiple site organization consisting of ambulatory clinics and hospital sitesin [place], [place], [place] and [place]. This disclosure is being madepursuant to the Care Everywhere program and may not contain all information available regarding this patient. Last updated 18.[facility] Allergies Active Allergy Reactions Criticality Noted Date Comments Meperidine Urticaria Medium 11/22/2022 Nickel Other Low 02/14/2021 Reaction: SKIN REDNESS & HOTNESS, Skin Adhesives Rash Medium 03/01/2021 Sulfa Drugs Rash,Other Medium 02/14/2021 Reaction: RASH, Reaction: REDNESS, Medications * Be aware that medications may not be up to date on this document. Alwaysverify current medications with the patient. Medication Sig Dispensed Refills Start Date End Date Status omeprazole (PRILOSEC) 40 MG capsule Take 1 (one) capsule by mouth once daily 1 Active atorvastatin (LIPITOR) 20 MG tablet Take 1 (one) tablet by mouth once daily 1 Active amLODIPine (Norvasc) 5 MG tabletIndication s:Hypertension Take 1 (one) tablet by mouth once daily Reasons: High Blood Pressure Active vitamin D3 (Cholecalciferol ) 25 MCG (1000 UNITS) tablet Take 1 (one) tablet by mouth once daily 90 tablet 4 Active famotidine (Pepcid) 40 MG tablet Take 1 (one) tablet by mouth at bedtime for 60 days 30 tablet 1 4 025 Active Gauze Pads & Dressings ([place] Dressings) 4 X14 PADS Use 1 Pad every 2 days 30 Each 4 Active Gauze Pads & Dressings (Gauze Dressing) 4 X4 PADS Dry gauze, nonadherent. 25 Each 1 4 Active gabapentin (Neurontin) 300 MG capsule Take 1 (one) capsule by mouth 3 times daily 90 capsule 1 5 Active oxyCODONE, immediate release, (Roxicodone) 5 MG tabletIndication s:Wound dehiscence Take 1 (one) tablet by mouth every 4 hours as needed 42 tablet 5 Active aspirin (Aspirin) 325 MG tablet Take 1 (one) tablet by mouth 2 times daily 100 tablet 5 Active cefepime (Maxipime) injection 2,000 (two thousand) mg by Intravenous route every 8 hours for 11 days 5 025 Active losartan (COZAAR) 100 MG tablet Take 1 (one) tablet by mouth once daily 1 025 Discontinued(Cl inical Decision) hydroCHLOROthiaz ted (Hydrodiuril) 25 MG tabletIndication s:Hypertension Take 1 (one) tablet by mouth once daily Reasons: High Blood Pressure 025 Discontinued(Cl inical Decision) polyethylene glycol (Golytely) 236 g solution Drink 1/2 of prep at 5pm the night before test. Finish the prep at 5am the day of test. 4000 mL 4 025 Discontinued(Nena st Clean-Up) acetaminophen (Tylenol) 500 MG tablet Take 2 (two) tablets by mouth every 6 hours Maximum allowable Acetaminophen amount = 4 Grams (4000 mg) / 24 hours. 90 tablet 2 4 025 Discontinued(Cl inical Decision) docusate sodium (Colace) 100 MG capsule Take 1 (one) capsule by mouth 2 times daily 60 capsule 1 4 025 Discontinued(Cl inical Decision) sennosides (Senokot) 8.6 MG tablet Take 1 (one) tablet by mouth once daily 30 tablet 1 4 025 Discontinued(Cl inical Decision) cyclobenzaprine (Flexeril) 5 MG tablet Take 1 (one) tablet by mouth 3 times daily as needed 40 tablet 1 4 025 Discontinued(Cl inical Decision) aspirin (Aspirin) 325 MG tablet Take 1 (one) tablet by mouth 2 times daily 100 tablet 4 025 Discontinued oxyCODONE, immediate release, (Roxicodone) 5 MG tabletIndication s:Disorder of bone Take 1 (one) tablet by mouth every 6 hours as needed for Pain 40 tablet 4 025 Discontinued(Cl inical Decision) clindamycin (Cleocin) 300 MG capsule Take 1 (one) capsule by mouth 4 times daily for 14 days 56 capsule 5 025 oxyCODONE-acetam inophen (Percocet) 5-325 MG tabletIndication s:Closed bicondylar fracture of right tibial plateau Take 1 (one) tablet by mouth every 6 hours as needed for Pain 35 tablet 5 025 Discontinued(Cl inical Decision) clindamycin (Cleocin) 300 MG capsule Take 1 (one) capsule by mouth 4 times daily for 14 days 56 capsule 5 025 Discontinued(Cl inical Decision) oxyCODONE-acetam inophen (Percocet) 5-325 MG tabletIndication s:Closed fracture of lateral portion of right tibial plateau, initial encounter,Surgic al site infection,Closed nondisplaced fracture of styloid process of left radius, initial encounter Take 1 (one) tablet by mouth every 6 hours as needed for Pain 35 tablet 5 025 Discontinued(Cl inical Decision) cefepime (Maxipime) injection 2,000 (two thousand) mg by Intravenous route every 8 hours for 11 days 66 g 025 Discontinued Active Problems Problem Noted Date Diagnosed Date Closed fracture of right tib ia and fibula, initial encounter 09/19/2024 Primary osteoarthritis of right ankle 06/13/2021 UMA positive 05/26/2021 Arthralgia of right ankle 03/15/2021 Fracture of lateral malleolu s of right fibula at syndesmosis Plantar fasciitis Encounters Date Type Department Care Team Description 11/21/2024 Telephone Transitional Care at [address] [address] Nadia Love, licensed plumber 11/17/2024 7:26 AM DIRECTOR OF PREMIUM SEAT SALES Anesthesia Event [facility] OP [address] [place] [address] Annie Carter MD Chase, Charles C, Anes Asst 11/17/2024 7:05 AM DIRECTOR OF PREMIUM SEAT SALES - 11/17/2024 9:31 AM DIRECTOR OF PREMIUM SEAT SALES Surgery [facility] [address] [place] [address] Daryn North MD IRRIGATION/DEBRIDEM ENT RIGHT KNEE WOUND, ANTIBIOTIC BEAD PLACEMENT, INCISIONAL PREVENA PLACEMENT, WOUND CLOSURE 11/14/2024 7:23 AM DIRECTOR OF PREMIUM SEAT SALES Anesthesia Event [facility] [address] [place] [address] Kin Aden MD Keeven, Grace C, MARINE FIREFIGHTER-CHIEF PILOT 11/14/2024 7:05 AM DIRECTOR OF PREMIUM SEAT SALES - 11/14/2024 8:50 AM DIRECTOR OF PREMIUM SEAT SALES Surgery [facility] [address] [place] [address] Daryn North MD Irrigation and debridement of right knee surgical site infection with wound vac placement 11/14/2024 5:27 AM DIRECTOR OF PREMIUM SEAT SALES - 11/20/2024 6:39 PM DIRECTOR OF PREMIUM SEAT SALES Hospital Encounter [facility] SHORT STAY UNIT [address] [place] [address] Daryn North MD Surgery General Discharge Disposition: Home Health Care [facility] 11/12/2024 9:17 AM DIRECTOR OF PREMIUM SEAT SALES - 11/12/2024 11:59 PM DIRECTOR OF PREMIUM SEAT SALES Hospital Encounter [facility] DIAGNOSTIC RAD [facility] [address] [place] [address] Daryn North MD Discharge Disposition: Home or Self Care 11/12/2024 9:17 AM DIRECTOR OF PREMIUM SEAT SALES - 11/12/2024 11:59 PM DIRECTOR OF PREMIUM SEAT SALES Hospital Encounter [facility]ST[facility] [address] [place] [address] Daryn North MD Discharge Disposition: Home or Self Care 11/12/2024 9:00 AM DIRECTOR OF PREMIUM SEAT SALES [facility] [address] [place] [phone] Daryn North MD Pate, Katherine M, PA-C Closed fracture of lateral portion of right tibial plateau, initial encounter (Primary Dx); Surgical site infection; Closed nondisplaced fracture of styloid process of left radius, initial encounter 11/12/2024 Orders Only [facility] [address] [place] [phone] Daryn North MD Closed fracture of lateral portion of right tibial plateau, initial encounter ; Closed fracture of left wrist, initial encounter 11/12/2024 Travel 10/27/2024 12:30 PM DIRECTOR OF PREMIUM SEAT SALES [facility] [address] [place] [phone] Adeola Mendez MD Closed fracture of lateral portion of right tibial plateau, initial encounter (Primary Dx) 10/27/2024 Travel 10/22/2024 12:30 PM DIRECTOR OF PREMIUM SEAT SALES [facility] [address] [place] [phone] Daryn North MD Closed bicondylar fracture of right tibial plateau (Primary Dx) 10/22/2024 11:17 AM DIRECTOR OF PREMIUM SEAT SALES - 10/22/2024 11:59 PM DIRECTOR OF PREMIUM SEAT SALES Hospital Encounter [facility] DIAGNOSTIC RAD [facility] [address] [place] [address] Daryn North MD Discharge Disposition: Home or Self Care 10/22/2024 Travel 10/22/2024 Orders Only [facility] [address] [place] [address] Daryn North MD Closed fracture of lateral portion of right tibial plateau, initial encounter 10/16/2024 Transitional Care [facility] - Care Coordination [address] [place] [address] Liza Steinberg, licensed plumber 10/14/2024 Transitional Care [facility] [address] [place] [address] Liza Steinberg, licensed plumber 10/10/2024 7:27 AM DIRECTOR OF PREMIUM SEAT SALES Anesthesia Event [facility] [address] [place] [address] Joey Oneal MD Osterloh, Joan Frances, MARINE FIREFIGHTER-[facility] 10/10/2024 7:15 AM DIRECTOR OF PREMIUM SEAT SALES - 10/10/2024 10:45 AM DIRECTOR OF PREMIUM SEAT SALES Surgery [facility] [address] [place] [address] Daryn North MD Open reduction internal fixation of right bicondylar tibial plateau fracture, repair of lateral meniscus right, removal of external fixator right 10/10/2024 5:43 AM DIRECTOR OF PREMIUM SEAT SALES - 10/13/2024 3:43 PM DIRECTOR OF PREMIUM SEAT SALES Hospital Encounter [facility] ACUTE [address] [place] [address] Daryn North MD Surgery General Discharge Disposition: Home Health Care [facility] 10/06/2024 Telephone [facility] - Orthopedics [address] [place] [phone] Adeola Mendez MD Pre-op Clearance 10/02/2024 Travel 09/29/2024 9:15 AM DIRECTOR OF PREMIUM SEAT SALES Office Visit [facility] - Orthopedics [address] [place] [phone] Adeola Mendez MD Adams, Karra N, MARINE FIREFIGHTER-CHIEF PILOT Closed fracture of lateral portion of right tibial plateau, initial encounter (Primary Dx) 09/29/2024 Travel 09/25/2024 Transitional Care [facility] - Care Coordination [address] [place] [address] Fiordaliza Neville, licensed plumber 09/24/2024 Transitional Care [facility] Care Coordination [address] [place] [address] Fiordaliza Neville, licensed plumber 09/24/2024 Transitional Care [facility] Coordination [address] [place] [phone] Haydee Curtis, licensed plumber 09/19/2024 4:12 PM DIRECTOR OF PREMIUM SEAT SALES Anesthesia Event [facility] [address] [place] [phone] Dorinda Stevens MD McDowell, Jacob A, Anes Asst 09/19/2024 3:50 PM DIRECTOR OF PREMIUM SEAT SALES - 09/19/2024 4:50 PM DIRECTOR OF PREMIUM SEAT SALES Surgery [facility] [address] [place] [phone] Marifer Saeed MD RIGHT TIBIA CLOSED REDUCTION EXTERNAL FIXATION 09/18/2024 10:44 PM DIRECTOR OF PREMIUM SEAT SALES - 09/23/2024 9:47 PM DIRECTOR OF PREMIUM SEAT SALES Hospital Encounter [facility] [address] [place] [address] Adeola Carreon MD Swan, Erin R, MD Orthopedics Discharge Disposition: Home Health Care [facility] 09/18/2024 Travel from Last 3 Months Immunizations Name Administration Dates Next Due Covid Moderna primary monovalent 12+ yr 0.5mL ,12/15/2020 ZOSTER HISTORIC VACCINE 06/27/2023 Social History Tobacco Use Types Packs/Day Years Used Date Smoking Tobacco: Former Cigarettes 2 13 1 972 - 1985 Smokeless Tobacco: Never Tobacco Cessation:Counseling Given: Not Answered Alcohol Use Standard Drinks/Week Comments Not Currently 0 (1 standard drink = 0.6 oz pur e alcohol) AUDIT-C Answer Date Recorded Q1: How often do you have a drink containing alcohol? Never 11/15/2024 Q2: How many drinks containi ng alcohol do you have on a typical day when you are drinking? Patient does not drink Q3: How often do you have si x or more drinks on one occasion? Never 11/15/2024 Overall Financial Resource Strain (CARDIA) Answe r Date Recorded How hard is it for you to pa y for the very basics like food, housing, medical care, and heating? Not hard at all 11/15/2024 PHQ-2 Answer Date Recorded Patient Health Questionnaire-2 Score 3 11/20/2024 [facility] - Occupational Stress Questionnaire Answer Date Recorded Do you feel stress - tense, restless, nervous, or anxious, or unable to sleep at night because your mind is troubled all the time - these days? Not at all 11/15/2024 Hunger Vital Sign Answer Date Recorded Within the past 12 months, y ou worried that your food would run out before you got the money to buy more. Never true 11/15/19 25 Within the past 12 months, t he food you bought just didn't last and you didn't have money to get more. Never true 11/15/2024 PRAPARE - Transportation Answer Date Re corded In the past 12 months, has l ack of transportation kept you from medical appointments or from getting medications? No 10/2024 In the past 12 months, has l ack of transportation kept you from meetings, work, or from getting things needed for daily living? No 11/15/2024 Housing Stability Vital Sign Answer John e Recorded In the last 12 months, was t here a time when you were not able to pay the mortgage or rent on time? No 11/15/2024 In the past 12 months, how m any times have you moved where you were living? 0 11/15/2024 At any time in the past 12 m [facility], were you homeless or living in a custodial (including now)? No 11/15/2024 Sex and Gender Information Value Date Recorded Sex Assigned at Female 06/03/2023 3:57 PM CDT Gender Identity Female 06/03/2023 3:57 PM CDT Sexual Orientation Not on file Last Filed Vital Signs Vital Sign Reading Time Taken Comments Blood Pressure 142/80 11/20/2024 4:08 PM DIRECTOR OF PREMIUM SEAT SALES Pulse 68 11/20/2024 4:08 PM DIRECTOR OF PREMIUM SEAT SALES Temperature 36.7 C (98 F) 11/20/2024 4:08 PM DIRECTOR OF PREMIUM SEAT SALES Respiratory Rate 18 11/20/2024 4:08 PM DIRECTOR OF PREMIUM SEAT SALES Oxygen Saturation 98% 11/20/2024 4:08 PM DIRECTOR OF PREMIUM SEAT SALES Inhaled Oxygen Concentration 40% 10/10/2024 1 2:23 PM DIRECTOR OF PREMIUM SEAT SALES Weight 89.4 kg (197 lb) 11/14/2024 2:06 PM DIRECTOR OF PREMIUM SEAT SALES Height 167.6 cm (5' 6 ) 11/14/2024 2:06 PM DIRECTOR OF PREMIUM SEAT SALES Body Mass Index 31.8 11/14/2024 2:06 PM DIRECTOR OF PREMIUM SEAT SALES Plan of Treatment Upcoming Encounters Date Type Department Care Team (Late st Contact Info) Description 11/26/2024 8:00 AM DIRECTOR OF PREMIUM SEAT SALES Office Visit Transitional Care at [facility] [address] [place] [phone] 11/26/2024 10:30 AM DIRECTOR OF PREMIUM SEAT SALES [facility] Visit [facility] [address] [place] [phone] Daryn North MD [address] [place] [address] [place] [address] 12/25/2024 10:00 AM CDT [facility] [address] [place] [phone] Missy Vogel PA-C [address] [place] [address] 01/15/2025 10:00 AM CDT Office Visit [facility] [address] [place] [phone] Health Maintenance Due Date Last Done Comments BONE DENSITY TESTING 1960 COLOGUARD (AGES 45-75) - COLON CA SCREENING 1958 CT COLONOGRAPHY - COLON CA SCREENING 1958 FIT - COLON CA SCREENING 1958 FLEX SIG - COLON CA SCREENING 1958 MAMMOGRAM 1960 MEDICARE AWV 12 MONTHS 1958 Opioid Medication Agreement - Annual 1958 Opioid Medication Urine Drug Screening 1958 DTAP/TDAP/TD VACCINES (1 - Tdap) 1977 PNEUMOCOCCAL VACCINE 50+ (1 of 1 - PCV) 01/25/2008 ZOSTER VACCINE (1 of 2) 01/25/2008 06/27/2023 Respiratory Syncytial Virus (RSV) Vaccine Pt: or over 60 yrs (1 - Risk 60-74 years 1-dose series) 2018 SCREENING FOR DIABETES 11/20/2027 , 11/20/2024, 11/20/2024, Additional history exists COLON MONITORING 05/30/2034 05/30/2024, 05/30/2024 COLONOSCOPY - COLON CA SCREENING 05/30/2034 05/30/2024, 05/30/2024 Colorectal Cancer Screening 05/30/2034 COVID-19 VACCINE Completed 08/10/2024, , 04/02/2022, Additional history exists INFLUENZA VACCINE Completed 08/10/2024, , 06/27/2023, Additional history exists DEPRESSION SCREENING Completed 10/22/2024, 09/29/20 24 HEPATITIS C SCREENING Completed 11/20/2024, 025 HEPATITIS B VACCINE Aged Out No longe r eligible based on patient's age to complete this topic HIB VACCINE Aged Out No longer eligi ble based on patient's age to complete this topic HPV VACCINE Aged Out No longer eligi ble based on patient's age to complete this topic MENINGOCOCCAL (Group B) VACCINE Aged Out No longer eligible based on patient's age to complete this topic MENINGOCOCCAL VACCINE Aged Out No antonino wilbur eligible based on patient's age to complete this topic Goals Goal Patient Goal Type Associated Problems Recent Progress Patient-Stated? Author Mobility General On track( 025 10:37 AM DIRECTOR OF PREMIUM SEAT SALES) No Ayaka Lockett, RN Note: Expected end date: 10/14/21 The goal is to maintain or improve your mobility at the optimum level for you. Interventions: Medical Devices Implanted Type Area Hvac Technician Residential Device Identifier Shelf Expiration Date Model / Serial / Lot Screw 3.5mm 50mm 2.5mm Slf-Tap Sm Hex Implanted:Qty : 1 on 03/15/2021 by Sukumar Magaña DO at [facility] Right: [employer] [id number] / / Screw 3.5mm 55mm 2.5mm Slf-Tap Sm Hex Implanted:Qty : 1 on 03/15/2021 by Sukumar Magaña DO at [facility] Right: [employer] [id number] / / Plate 2 Hl 2 Comp Colr 25mm 1/3 Tblr Implanted:Qty : 1 on 03/15/2021 by Sukumar Magaña DO at [facility] Right: [employer] [id number] / / Sub Bngf 4.8mm Ostst Ca Slf Pelt Implanted:Qty : 1 on 03/15/2021 by Sukumar Magaña DO at [facility] [employer] [id number] / / [id number] Screw 4.7mm 5.6mm 36mm 2.5mm Ft Va Lopro Implanted:Qty : 2 on 10/10/2024 by Daryn North MD at [facility] Right: [employer] 11/26/2033 [id number] / / [id number] Screw 4.7mm 5.6mm 28mm 2.5mm Ft Va Lopro Implanted:Qty : 1 on 10/10/2024 by Daryn North MD at [facility] Right: [employer] 03/12/2032 [id number] / / [id number] Screw 4.7mm 5.6mm 32mm 2.5mm Ft Va Lopro Implanted:Qty : 1 on 10/10/2024 by Daryn North MD at [facility] Right: [employer] [id number] 10/19/2030 [id number] / / [id number] Agent Hmst Thrmb Kt Surgiflo 2ml Implanted:Qty : 2 on 10/10/2024 by Daryn North MD at [facility] Right: [employer] [id number] / / Screw 3.5mm 26mm Slf-Tap Cortx Evos Strl Implanted:Qty : 1 on 10/10/2024 by Daryn North MD at [facility] Right: [employer] [id number] / / Screw 3.5mm 32mm Slf-Tap Cortx Evos Strl Implanted:Qty : 1 on 10/10/2024 by Daryn North MD at [facility] Right: [employer] [id number] / / Screw 3.5mm 34mm Slf-Tap Cortx Evos Strl Implanted:Qty : 1 on 10/10/2024 by Daryn North MD at [facility] Right: [employer] [id number] / / Screw 3.5mm 15mm Slf-Tap Lck Evos Strl Implanted:Qty : 1 on 10/10/2024 by Daryn North MD at [facility] Right: [employer] [id number] / / Plate 9 Hl Va Lck Fib Lt Dist 125mm Implanted:Qty : 1 on 10/10/2024 by Daryn North MD at [facility] Right: [employer] [id number] / / Screw 3.5mm 32mm Ft Slf-Tap Hex Lopro Implanted:Qty : 1 on 10/10/2024 by Daryn North MD at [facility] Right: [employer] [id number] / / Screw 3.5mm 60mm T15 Lck Slf-Tap Tip Tpr Implanted:Qty : 1 on 10/10/2024 by Daryn North MD at [facility] Right: [employer] [id number] / / Screw 3.5mm 65mm T15 Lck Slf-Tap Tip Tpr Implanted:Qty : 3 on 10/10/2024 by Daryn North MD at [facility] Right: [employer] [id number] / / Screw 3.5mm 70mm T15 Lck Slf-Tap Tip Tpr Implanted:Qty : 1 on 10/10/2024 by Daryn North MD at [facility] Right: [employer] [id number] / / Plate 9 Hl Lck Lopro Dist Blt Tip Tib Rt Implanted:Qty : 1 on 10/10/2024 by Daryn North MD at [facility] Right: [employer] [id number] / / Screw 3.5mm 75mm T15 Lck Slf-Tap Tip Tpr Implanted:Qty : 2 on 10/10/2024 by Daryn North MD at [facility] Right: [employer] [id number] / / Screw 3.5mm 40mm Ft Slf-Tap Hex Lopro Implanted:Qty : 1 on 10/10/2024 by Daryn North MD at [facility] Right: [employer] [id number] / / Screw 3.5mm 20mm T15 Slf-Tap Lck Tpr Implanted:Qty : 1 on 10/10/2024 by Daryn North MD at [facility] Right: [employer] [id number] / / Cmnt Bone Smpx Ptbr Fd Radopq Prebl Implanted:Qty : 1 on 11/17/2024 by Daryn North MD at [facility] Right: [employer] 01/12/2026 [id number] / / [id number] Bone Void 10cc 20cc Ca Slf Stimulan Implanted:Qty : 1 on 11/17/2024 by Daryn North MD at [facility] Right: [employer]nee [employer] 07/14/2027 [id number] / / [id number] Explanted Type Area Hvac Technician Residential Device Identifier Shelf Expiration Date Model / Serial / Lot Wire K 2mm 150mm 1 End Troc Pnt Ss Sm Explanted:Qty: 1 on 03/15/2021 by Sukumar Magaña DO at [facility] Right: [employer] [id number] / / Screw 3.5mm 60mm 2.5mm Slf-Tap Sm Hex Explanted:Qty: 1 on 03/15/2021 by Sukumar Magaña DO at [facility] Right: [employer] [id number] / / Cplng Extfix Hfmn 3 Nikhil To Nikhil Salomón Explanted:Qty: 4 on 09/19/2024 by Marifer Saeed MD at [facility] Right: [employer] [id number] / / Screw 3.5mm 38mm Slf-Tap Cortx Evos Strl Explanted:Qty: 1 on 10/10/2024 by Daryn North MD at [facility] Right: [employer] [id number] / / Screw 3.5mm 42mm Slf-Tap Cortx Evos Strl Explanted:Qty: 1 on 10/10/2024 by Daryn North MD at [facility] Right: [employer] [id number] / / Wire K 1.6mm 150mm Troc Pnt Ss Fx Strl Explanted:Qty: 1 on 10/10/2024 by Daryn North MD at [facility] Right: [employer] [id number] / / Plate 11 Hl Va Lck Lopro Fib Lt Dist Lat Explanted:Qty: 1 on 10/10/2024 by Daryn North MD at [facility] Right: [employer] [id number] / / Wire K 1.6mm 6in Hlf Bynt Pnt Ss Fx Explanted:Qty: 3 on 10/10/2024 by Daryn North MD at [facility] Right: [employer] [id number] / / Pin Hlf 180mm 5mm Apx Hfmn2 Canc Ss Implanted:Qty: 2 on 09/19/2024 by Marifer Saeed MD at [facility] Explanted:Qty: 2 on 10/10/2024 by Daryn North MD at [facility] Right: [employer] [id number] / / Pin Hlf 200mm 5mm Apx Hfmn2 Orth Ss Thrd Implanted:Qty: 2 on 09/19/2024 by Marifer Saeed MD at [facility] Explanted:Qty: 2 on 10/10/2024 by Daryn North MD at [facility] Right: [employer] [id number] / / Procedures Procedure Name Priority Date/Time Associated Diagnosis Comments GLUCOSE - POINT OF CARE Routine 11/20/2024 1:30 PM DIRECTOR OF PREMIUM SEAT SALES GLUCOSE - POINT OF CARE Routine 11/20/2024 8:10 AM DIRECTOR OF PREMIUM SEAT SALES BASIC METABOLIC PANEL (CALCIUM TOTAL) AM Draw 11/20/2024 12:49 AM DIRECTOR OF PREMIUM SEAT SALES HEPATITIS C AB SCREEN RFLX NAAT QUANT Routine 11/20/2024 12:48 AM DIRECTOR OF PREMIUM SEAT SALES HIV-1 HIV-2 ANTIBODY + HIV P24 AG PANEL Routine 11/20/2024 12:48 AM DIRECTOR OF PREMIUM SEAT SALES HEPATITIS SCREEN ACUTE AM Draw 11/20/2024 12:48 AM DIRECTOR OF PREMIUM SEAT SALES CBC W/O DIFFERENTIAL AM Draw 11/20/2024 12:48 AM DIRECTOR OF PREMIUM SEAT SALES GLUCOSE - POINT OF CARE Routine 11/19/2024 9:06 PM [employer] GLUCOSE - POINT OF CARE Routine 11/19/2024 5:26 PM [employer] HEMOGLOBIN Timed 11/19/2024 3:37 PM [employer] GLUCOSE - POINT OF CARE Routine 11/19/2024 1:18 PM [employer] TRANSFUSE RED BLOOD CELL LEUKOREDUCED UNIT(S) Routine 11/19/2024 9:30 AM [employer] PREPARE RBC LEUKOREDUCED UNIT Routine 11/19/2024 9:14 AM [employer] GLUCOSE - POINT OF CARE Routine 11/19/2024 8:22 AM [employer] TYPE + SCREEN PANEL STAT 11/19/2024 6 :24 AM [employer] HEPATIC FUNCTION PANEL AM Draw 11/19/2024 12:15 AM [employer] CBC W/O DIFFERENTIAL AM Draw 11/19/2024 12:15 AM [employer] BASIC METABOLIC PANEL (CALCIUM TOTAL) AM Draw 11/19/2024 12:15 AM [employer] GLUCOSE - POINT OF CARE Routine 11/18/2024 7:54 PM [employer] GLUCOSE - POINT OF CARE Routine 11/18/2024 5:44 PM [employer] GLUCOSE - POINT OF CARE Routine 11/18/2024 12:35 PM [employer] EKG 12-LEAD Routine 11/18/2024 11:30 AM [employer] Closed fracture of right tibia and fibula, initial encounter GLUCOSE - POINT OF CARE Routine 11/18/2024 8:30 AM [employer] CBC W/O DIFFERENTIAL AM Draw 11/18/2024 12:20 AM [employer] BASIC METABOLIC PANEL (CALCIUM TOTAL) AM Draw 11/18/2024 12:20 AM [employer] GLUCOSE - POINT OF CARE Routine 11/17/2024 9:12 PM [employer] GLUCOSE - POINT OF CARE Routine 11/17/2024 5:19 PM [employer] VAS BILATERAL VENOUS DUPLEX LE Routine 11/17/2024 12:30 PM [employer] Closed fracture of right tibia and fibula, initial encounter GLUCOSE - POINT OF CARE Routine 11/17/2024 11:45 AM [employer] CULTURE ANAEROBE STAT 11/17/2024 8:38 AM [employer] CULTURE WOUND+GRAM STAIN STAT 11/17/2024 8:38 AM [employer] CULTURE ANAEROBE STAT 11/17/2024 8:3 6 AM [employer] CULTURE WOUND+GRAM STAIN STAT 11/17/2024 8:36 AM [employer] ENDOTRACHEAL TUBE NOTE Routine 11/17/2024 7:55 AM [employer] OH EXPLORE WOUND,EXTREMITY 11/17/2024 7:07 AM [employer] Injury of right knee, initial encounter CBC W/O DIFFERENTIAL AM Draw 11/17/2024 12:44 AM [employer] BASIC METABOLIC PANEL (CALCIUM TOTAL) AM Draw 11/17/2024 12:44 AM [employer] GLUCOSE - POINT OF CARE Routine 11/16/2024 7:59 PM [employer] GLUCOSE - POINT OF CARE Routine 11/16/2024 6:01 PM [employer] URINALYSIS REFLEX TO MICROSCOPIC NO CULTURE Routine 11/16/2024 1:08 PM [employer] PROTEIN URINE RANDOM QUANTITATIVE Routine 11/16/2024 1:08 PM [employer] UREA NITROGEN URINE RANDOM Routine 11/16/2024 1:08 PM [employer] CREATININE URINE RANDOM Routine 11/16/2024 1:08 PM [employer] SODIUM URINE RANDOM Routine 11/16/2024 1 :08 PM [employer] GLUCOSE - POINT OF CARE Routine 11/16/2024 11:33 AM [employer] GLUCOSE - POINT OF CARE Routine 11/16/2024 8:17 AM [employer] CBC W/O DIFFERENTIAL AM Draw 11/16/2024 12:21 AM [employer] BASIC METABOLIC PANEL (CALCIUM TOTAL) AM Draw 11/16/2024 12:21 AM [employer] GLUCOSE - POINT OF CARE Routine 11/15/2024 8:18 PM [employer] GLUCOSE - POINT OF CARE Routine 11/15/2024 6:00 PM [employer] GLUCOSE - POINT OF CARE Routine 11/15/2024 1:13 PM [employer] GLUCOSE - POINT OF CARE Routine 11/15/2024 9:10 AM [employer] VITAMIN D 25-HYDROXY AM Draw 11/15/2024 12:56 AM [employer] FERRITIN Routine 11/15/2024 12:56 AM [employer] IRON + TRANSFERRIN PANEL Routine 11/15/2024 12:56 AM [employer] VITAMIN B12 AM Draw 11/15/2024 12:56 AM [employer] FOLATE Routine 11/15/2024 12:56 AM [employer] CBC W/O DIFFERENTIAL AM Draw 11/15/2024 12:56 AM [employer] BASIC METABOLIC PANEL (CALCIUM TOTAL) AM Draw 11/15/2024 12:56 AM [employer] GLUCOSE - POINT OF CARE Routine 11/14/2024 10:25 PM [employer] GLUCOSE - POINT OF CARE Routine 11/14/2024 5:53 PM [employer] COMPREHENSIVE METABOLIC PANEL Routine 11/14/2024 4:18 PM [employer] HEMOGLOBIN A1C Routine 11/14/2024 4:18 PM [employer] PT EVAL AND TREAT ORTHO/TRAUMA Routine 11/14/2024 9:08 AM [employer] OT EVAL AND TREAT ORTHO/TRAUMA Routine 11/14/2024 9:08 AM [employer] CULTURE ANAEROBE STAT 11/14/2024 8:21 AM [employer] CULTURE WOUND+GRAM STAIN STAT 11/14/2024 8:21 AM [employer] CULTURE ANAEROBE STAT 11/14/2024 8:10 AM [employer] CULTURE WOUND+GRAM STAIN STAT 11/14/2024 8:10 AM [employer] CULTURE ANAEROBE STAT 11/14/2024 8:10 AM [employer] CULTURE WOUND+GRAM STAIN STAT 11/14/2024 8:10 AM [employer] ENDOTRACHEAL TUBE NOTE Routine 11/14/2024 7:57 AM [employer] OH RENE SUBQ TISSUE 20 SQ CM/< 11/14/2024 6:58 AM [employer] Surgical site infection Special Needs Supine C-ARM CBC W AUTO DIFFERENTIAL STAT 11/14/2024 6:47 AM [employer] Arthralgia of right ankle TYPE + SCREEN PANEL Routine 11/14/2024 6 :17 AM [employer] XR WRIST LEFT 3VW OR MORE Routine 11/12/2024 9:24 AM [employer] Closed fracture of left wrist, initial encounter XR TIBIA FIBULA RIGHT 2VW Routine 11/12/2024 9:22 AM [employer] Closed fracture of lateral portion of right tibial plateau, initial encounter XR TIBIA FIBULA RIGHT 2VW Routine 10/22/2024 11:26 AM [employer] Closed fracture of lateral portion of right tibial plateau, initial encounter CBC W/O DIFFERENTIAL AM Draw 10/13/2024 1:55 AM [employer] Closed fracture of right tibia and fibula, initial encounter BASIC METABOLIC PANEL (CALCIUM TOTAL) AM Draw 10/13/2024 1:55 AM [employer] Closed fracture of right tibia and fibula, initial encounter CBC W/O DIFFERENTIAL AM Draw 10/12/2024 1:03 PM [employer] Closed fracture of right tibia and fibula, initial encounter BASIC METABOLIC PANEL (CALCIUM TOTAL) AM Draw 10/12/2024 4:18 AM [employer] Closed fracture of right tibia and fibula, initial encounter CBC W/O DIFFERENTIAL AM Draw 10/11/2024 2:13 AM [employer] Closed fracture of right tibia and fibula, initial encounter BASIC METABOLIC PANEL (CALCIUM TOTAL) AM Draw 10/11/2024 2:13 AM [employer] Closed fracture of right tibia and fibula, initial encounter XR TIBIA FIBULA RIGHT 2VW STAT 10/10/2024 1:17 PM [employer] Closed fracture of right tibia and fibula, initial encounter [facility] STAT 10/10/2024 11:01 AM [employer] Closed fracture of right tibia and fibula, initial encounter PERIPHERAL IV NOTE Routine 10/10/2024 8: 22 AM [employer] ENDOTRACHEAL TUBE NOTE Routine 10/10/2024 8:22 AM [employer] OH OPEN RX BILAT TIB PLAT FX 10/10/2024 7:15 AM [employer] Closed fracture of lateral portion of right tibial plateau, initial encounter Special Needs Supine C-Arm TYPE + SCREEN PANEL Routine 10/10/2024 6 :24 AM [employer] CBC W/O DIFFERENTIAL AM Draw 09/23/2024 6:31 AM [employer] Closed fracture of right tibia and fibula, initial encounter BASIC METABOLIC PANEL (CALCIUM TOTAL) AM Draw 09/23/2024 6:31 AM [employer] Closed fracture of right tibia and fibula, initial encounter CBC W/O DIFFERENTIAL AM Draw 09/22/2024 7:15 AM [employer] Closed fracture of right tibia and fibula, initial encounter BASIC METABOLIC PANEL (CALCIUM TOTAL) AM Draw 09/22/2024 7:15 AM [employer] Closed fracture of right tibia and fibula, initial encounter XR KNEE RIGHT 2VW OR LESS Routine 09/21/2024 11:00 AM [employer] Closed fracture of right tibia and fibula, initial encounter CBC W/O DIFFERENTIAL AM Draw 09/21/2024 5:54 AM [employer] Closed fracture of right tibia and fibula, initial encounter BASIC METABOLIC PANEL (CALCIUM TOTAL) AM Draw 09/21/2024 5:54 AM [employer] Closed fracture of right tibia and fibula, initial encounter CBC W/O DIFFERENTIAL AM Draw 09/20/2024 3:42 AM [employer] Closed fracture of right tibia and fibula, initial encounter BASIC METABOLIC PANEL (CALCIUM TOTAL) AM Draw 09/20/2024 3:42 AM [employer] Closed fracture of right tibia and fibula, initial encounter [facility] STAT 09/19/2024 5:18 PM [employer] Closed fracture of right tibia and fibula, initial encounter PERIPHERAL IV NOTE Routine 09/19/2024 4: 47 PM [employer] ENDOTRACHEAL TUBE NOTE Routine 09/19/2024 4:46 PM [employer] OH CLOSED RX TIBIA SHAFT FX 09/19/2024 4:16 PM [employer] Closed fracture of right tibial plateau, initial encounter VITAMIN D 25-HYDROXY Routine 09/19/2024 3:12 AM [employer] Closed fracture of right tibia and fibula, initial encounter Disorder of bone CBC W/O DIFFERENTIAL STAT 09/19/2024 3:12 AM [employer] Closed fracture of right tibia and fibula, initial encounter COMPREHENSIVE METABOLIC PANEL STAT 09/19/2024 3:12 AM [employer] PT EVAL AND TREAT ORTHO/TRAUMA Routine 09/19/2024 1:52 AM [employer] OT EVAL AND TREAT ORTHO/TRAUMA Routine 09/19/2024 1:52 AM [employer] CT TIBIA FIBULA RIGHT WO CONT STAT 09/19/2024 1:14 AM [employer] Right leg pain CT KNEE RIGHT WO CONTRAST STAT 09/19/2024 1:14 AM [employer] Right leg pain XR FOOT RIGHT 3VW OR MORE STAT 09/19/2024 12:45 AM [employer] Right leg pain TYPE + SCREEN PANEL STAT 09/18/2024 1 1:24 PM [employer] CBC W AUTO DIFFERENTIAL STAT 09/18/2024 11:24 PM [employer] XR KNEE RIGHT 2VW OR LESS STAT 09/18/2024 11:08 PM [employer] Right leg pain XR TIBIA FIBULA RIGHT 2VW STAT 09/18/2024 11:08 PM [employer] Right leg pain ENDOSCOPY, COLON, SCREENING Routine 05/30/2024 9:42 AM CDT from Last 3 Months or Most Recently Relevant to Health Maintenance Results * GLUCOSE - POINT OF CARE (11/20/2024 1:30 PM [employer]) Only the most recent of23 resultswithin the time period is included. [facility] Glucose WB/POC 95 70 - 99 mg/dL 11/20/2024 4:55 PM [employer] [facility] Specimen Type Cap Fingerstick 2024 4:55 PM [employer] [facility] Blood BLOOD SPECIMEN / Unknown 11/20/2024 1:30 PM [employer] 11/20/2024 4:55 PM [employer] Daryn North MD LAB - POINT OF CARE ORDERABLES [facility] [address] [place] [id number], [facility] [phone] * (ABNORMAL) BASIC METABOLIC PANEL (CALCIUM TOTAL) (11/20/2024 12:49 AM [employer]) Only the most recent of13 resultswithin the time period is included. [facility] BUN 26 7 - 26 mg/dL 11/20/2024 1:59 AM [employer] [facility] Creatinine 0.98(H) 0.56 - 0.96 mg/dL 11/20/2024 1:59 AM [facility] Sodium 143 136 - 145 mmol/L 11/20/2024 1:59 AM [facility] Potassium 3.8 3.5 - 4.5 mmol/L 11/20/2024 1:59 AM [facility] Chloride 113(H) 98 - 107 mmol/L 11/20/2024 1:59 AM [facility] CO2 22 22 - 29 mmol/L 11/20/2024 1:59 AM [facility] Glucose 95 70 - 99 mg/dL 11/20/2024 1:59 AM [facility] Calcium 8.9 8.4 - 10.2 mg/dL 11/20/2024 1:59 AM [facility] Anion Gap 8 6 - 16 11/20/2024 1:59 AM [facility] BUN/Creatinine Ratio 27(H) 7 - 23 11/20/2024 1:59 AM [facility] Osmolality Calculated 301(H) 275 - 295 mOsm/kg 11/20/2024 1:59 AM [facility] eGFR by CKD-EPI 64(L) >=90 mL/min/1.7 3 m2 11/20/2024 1:59 AM [facility] Blood BLOOD SPECIMEN / Unknown Lab Venipuncture / Unknown 11/20/2024 12:49 AM [employer] 11/20/2024 1:28 AM [facility] Daryn North MD LAB - CHEMISTRY [place] Organization Address City/State/ZIP Co de Phone Number [facility] [address] [place] [phone], [facility] [phone] * HEPATITIS C AB SCREEN RFLX NAAT QUANT (11/20/2024 12:48 AM [facility]) Hepatitis C Antibody Non-react juju Non-reac tive 11/20/2024 2:21 AM [facility] Comment: Hepatitis C Antibody screen indicates no serologic evidence of past or current infection with Hepatitis C Virus. Patients with unexplained liver disease who are immunocompromised or suspected of having acute Hepatitis C infection may benefit from Nucleic Acid Test (KATIUSKA) for Hepatitis C Viral RNA to confirm Hepatitis C status. Hepatitis C Antibody screen indicates no serologic evidence of past or current infection with Hepatitis C Virus. Patients with unexplained liver disease who are immunocompromised or suspected of having acute Hepatitis C infection may benefit from Nucleic Acid Test (KATIUSKA) for Hepatitis C Viral RNA to confirm Hepatitis C status. Blood BLOOD SPECIMEN / Unknown Lab Venipuncture / Unknown 11/20/2024 12:48 AM [employer] 11/20/2024 1:18 AM [employer] Cathie Reyes MD LAB - CHEMISTRY KONG ELIEGEOVANNI Performing Organization Address City/[facility]/ZIP Co de Phone Number [address] [address], [facility] [phone] * HIV-1 HIV-2 ANTIBODY + HIV P24 AG PANEL (11/20/2024 12:48 AM [employer]) [facility] HIV Antigen/Antibod y 1 & 2 Non-reacti ve Non-react juju 11/20/2024 2:21 AM [facility] Comment:No Laboratory eviden ce of HIV infection. Blood BLOOD SPECIMEN / Unknown Lab Venipuncture / Unknown 11/20/2024 12:48 AM [employer] 11/20/2024 1:18 AM [employer] Cathie Reyes MD LAB - CHEMISTRY KONG JENSEN Performing Organization Address [facility]/ZIP Co de Phone Number [address] [address], [facility] [phone] * (ABNORMAL) CBC W/O DIFFERENTIAL (11/20/2024 12:48 AM [employer]) Only the most recent of14 resultswithin the time period is included. [facility] WBC 7.7 4.0 - 10.7 x10E9/L 11/20/2024 1:35 AM [facility] RBC Count 2.88(L) 3.90 - 5.20 x10E12/L 11/20/2024 1:35 AM [facility] Hemoglobin 8.0(L) 11.9 - 15.8 g/dL 11/20/2024 1:35 AM [facility] Hematocrit 24.5(L) 34.8 - 46.1 % 11/20/2024 1:35 AM [facility] MCV 85.1 80.0 - 98.0 fL 11/20/2024 1:35 AM [facility] MCH 27.8 26.7 - 33.6 pg 11/20/2024 1:35 AM [facility] MCHC 32.7 31.7 - 36.3 g/dL 11/20/2024 1:35 AM [facility] RDW-CV 15.9(H) 11.3 - 14.8 % 11/20/2024 1:35 AM [facility] Platelet Count 269 150 - 420 x10E9/L 11/20/2024 1:35 AM [facility] MPV 11.4 7.8 - 11.4 fL 11/20/2024 1:35 AM [facility] NRBC 0.3(H) <=0.0 /100 WBC 11/20/2024 1:35 AM [facility] Blood BLOOD SPECIMEN / Unknown Lab Venipuncture / Unknown 11/20/2024 12:48 AM [employer] 11/20/2024 1:18 AM [facility] Daryn North MD LAB - HEMATOLOGY ORD ERABLES Performing Organization Address City/State/[facility] Co de Phone Number [facility] [address] [place] [phone] [phone] * HEPATITIS SCREEN ACUTE (11/20/2024 12:48 AM [employer]) Hepatitis A Virus Antibody IgM Non-react juju Non-reac tive 11/20/2024 2:21 AM [facility] Hepatitis B Virus Surface Antigen Non-react juju Non-reac tive 11/20/2024 2:21 AM [facility] Hepatitis B Core Virus Antibody IgM Non-react juju Non-reac tive 11/20/2024 2:21 AM [facility] Hepatitis C Antibody Non-react juju Non-reac tive 11/20/2024 2:21 AM [facility] Comment:Hepatitis C Antibody screen indicates no serologic evidence of past or current infection with Hepatitis C Virus. Patients with unexplained liver disease who are immunocompromised or suspected of having acute Hepatitis C infection may benefit from Nucleic Acid Test (KATIUSKA) for Hepatitis C Viral RNA to confirm Hepatitis C status. Blood BLOOD SPECIMEN / Unknown Lab Venipuncture / Unknown 11/20/2024 12:48 AM [employer] 11/20/2024 1:18 AM [employer] Cathie Reyes MD LAB - CHEMISTRY ERYNE MIKEY Performing Organization Address City/[facility]/ZIP Co de Phone Number [address] [address], [place] [phone] * (ABNORMAL) HEMOGLOBIN (11/19/2024 3:37 PM [employer]) Pathologist [facility] Hemoglobin 9.3(L) 11.9 - 15.8 g/dL 11/19/2024 4:07 PM [employer] [facility] Blood BLOOD SPECIMEN / Unknown Lab Venipuncture / Unknown 11/19/2024 3:37 PM [employer] 11/19/2024 3:44 PM [employer] Missy Melgar PA-C LAB - HEMATO LOGY ORDERABLES Performing Organization Address [facility] Co de Phone Number [address] [phone], [facility] [phone] * PREPARE (CROSSMATCH) RBC UNIT(S), 1 Units (11/19/2024 9:14 AM [employer]) [facility] Unit Description AS1 LR PRBC IRR [facility] BLOOD [facility]ANK LAB Unit ABO O [facility] Unit Rh NEG [facility] Product Number R04 [facility] B LOOD [facility]ANK LAB Unit Donor # [id number] [facility] Unit Status transfused [facility] BLO OD BANK LAB Product Code [id number] [facility] BLO OD BANK LAB Blood Type Barcode 9500 [facility] BLOOD [facility] LAB Expiration Date [id number] S BLOOD BANK LAB Blood Bank BLOOD SPECIMEN / Unknown 11/19/2024 6:33 AM [employer] Daryn North MD LAB - BLOOD BANK ORD ERABLES Performing Organization Address [facility]/ZIP Co de Phone Number [facility] BLOOD [facility] LAB [address] [place] [address], [place] [phone] * TYPE + SCREEN PANEL (11/19/2024 6:24 AM [employer]) Only the most recent of4 resultswithin the time period is included. [facility] Antibody Screen NEG 7:12 AM [facility] LAB ABO Rh O POS 11/19/2024 7:12 AM [facility] LAB Blood Bank BLOOD SPECIMEN / Unknown Venipuncture / Unknown 11/19/2024 6:24 AM [employer] 11/19/2024 6:33 AM [employer] Daryn North MD LAB - BLOOD BANK ORD ERABLES [facility] BLOOD [facility] LAB [address] [place] [address], [facility] [phone] * (ABNORMAL) HEPATIC FUNCTION PANEL (11/19/2024 12:15 AM [facility]) [facility] Protein Total 5.2(L) 6.0 - 8.3 g/dL 025 1:22 AM [facility] Albumin 2.1(L) 3.4 - 5.0 g/dL 11/19/2024 1:22 AM [facility] Bilirubin Total 0.2 0.2 - 1.2 mg/dL 02/2025 1:22 AM [facility] Bilirubin Conjugated 0.1 0.1 - 0.5 mg/dL 11/19/2024 1:22 AM [facility] Bilirubin Unconjugated 0.1 Unconjugated Bilirubin is a calculated value: Reference ranges have not been established. mg/dL 11/19/2024 1:22 AM [facility] Alkaline Phosphatase 279(H) 40 - 150 U/L 11/19/2024 1:22 AM [facility] ALT 79(H) 5 - 55 U/L 11/19/2024 1:22 AM [facility] AST 71(H) 5 - 34 U/L 11/19/2024 1:22 AM [facility] Albumin/Globulin Ratio 0.7(L) 1.1 - 2.3 11/19/2024 1:22 AM [facility] Blood BLOOD SPECIMEN / Unknown Lab Venipuncture / Unknown 11/19/2024 12:15 AM [employer] 11/19/2024 12:50 AM [employer] Daryn North MD LAB - CHEMISTRY KONG JENSEN Performing Organization Address [facility] Co de Phone Number [place] [id number] [place] [address], [facility] [phone] * EKG 12-LEAD (11/18/2024 11:30 AM [employer]) Ventricular Rate 79 BPM [facility] MUSE Atrial Rate 79 BPM [facility] MUSE P-R Interval 150 ms [facility] MUSE QRS Duration ms 100 ms [facility] MUSE Q-T Interval ms 406 ms [facility] MUSE QTC Calculation (Bezet) 465 ms [facility] MUSE Calculated P [place] 26 degrees [facility] MUSE Calculated R [place] 9 degrees [facility] MUSE Calculated T [place] 26 degrees [facility] MUSE Interpretation EKG NORMAL SINUS RHYTHM NORMAL ECG NO PREVIOUS ECGS AVAILABLE Confirmed by FRANC RODRIGUEZ MD ([id number]) on 11/22/2024 11:50:41 PM [facility] MUSE 11/18/2024 11:3 0 AM [employer] 11/22/2024 11:50 PM [employer] aDryn North MD ECG ORDERABLES Performing Organization Address [facility] Co de Phone Number [facility] VAS Bilateral Venous Duplex Le (11/17/2024 12:30 PM [employer]) Anatomical Region Laterality Modality Lower Extremity Ultrasound 11/17/2024 12:1 3 PM [employer] Narrative Procedure Note Segundo Clement MD - 11/17/2024 Daryn North MD VASCULAR LAB ORDERAB LES * (ABNORMAL) CULTURE WOUND+GRAM STAIN (11/17/2024 8:38 AM [employer]) Only the most recent of5 resultswithin the time period is included. Culture Light Enterobacter cloacae complex(A) JERILYN 11/19/2024 1:56 PM [employer] [facility] Gram Stain Heavy Red blood cells 11/19/2024 1:56 PM [employer] [facility] Gram Stain Rare Polymorphonuclear cells 11/19/2024 1:56 PM [employer] [facility] Gram Stain No organisms seen 025 1:56 PM [employer] [facility] Microbiology ENTIRE [place] / Unknown Collection / Unknown 11/17/2024 8:38 AM [employer] 11/17/2024 8:46 AM [employer] Narrative [facility] - 11/19/2024 1:56 PM [employer] Enterobacter cloacae, Citrobacter freundii, Klebsiella (formerly Enterobacter) aerogenes may develop resistance to penicillins, 1st, 2nd, and 3rd generation cephalosporins as a result of de-repression of the AmpC beta-lactamase gene. Isolates that are initially susceptible may become resistant within a few days after initiating therapy. Testing of repeat isolates may be warranted. Organism Antibiotic Method Susceptibility Enterobacter cloacae complex Amikacin JERILYN <=2 ug/mL: Susceptible Enterobacter cloacae complex Cefepime JERILYN <=1 ug/mL: Susceptible Enterobacter cloacae complex Ceftriaxone JERILYN <=1 ug/mL: Susceptible Enterobacter cloacae complex Ciprofloxacin JERILYN <=0.25 ug/mL: Susceptible Enterobacter cloacae complex Gentamicin JERILYN <=1 ug/mL: Susceptible Enterobacter cloacae complex Meropenem JERILYN <=0.25 ug/mL: Susceptible Enterobacter cloacae complex Piperacillin-tazobactam JERILYN <=4 ug/mL: Susceptible Enterobacter cloacae complex Tobramycin JERILYN <=1 ug/mL: Susceptible Enterobacter cloacae complex Trimethoprim-sulfamethoxaz ole JERILYN <=20 ug/mL: Susceptible Daryn North MD LAB - MICROBIOLOGY O RDERABLES [facility]CROBIOLOG[facility] [address] [phone] * CULTURE ANAEROBE (11/17/2024 8:38 AM [employer]) Only the most recent of5 resultswithin the time period is included. Culture No anaerobic organisms isolated JERILYN 11/22/2024 1:20 PM [employer] [facility] MICROBIOLOGY Microbiology [place] / Unknown Collection / Unknown 11/17/2024 8:38 AM [employer] 11/17/2024 8:46 AM [employer] Daryn North MD LAB - MICROBIOLOGY O [place] [facility] MICRO[facility]OLOG[facility] [address] [place] [address], [facility] [phone] * ETT LINE PERFORMABLE (11/17/2024 7:55 AM [employer]) Narrative Sandro Corona DO - 11/17/2024 7:55 AM [employer] Sandro Corona DO 11/17/2024 7:56 AM Endotracheal Tube Placement: Patient Location: OR. Intubation Event Date/Time: 11/17/2024 7:45 AM Procedure: intubation (50198) Procedure Section: Sedation: under general anesthesia. Indications for Airway Management: anesthesia Induction: standard IV Patient Position: sniffing Mask Ventilation: easy. Blade Type: Solorzano Blade Size: 2 Laryngoscopy View: grade 1 (full cords) Intubation Adjuncts: cricoid pressure and stylet Tube: endotracheal tube Placement: oral Tube type: cuff - inflated Tube Size (MM): 7 Depth of Insertion (CM): 22 Measured From: lips Cuff Inflated With: air Number of Attempts: 1. Placement Verified By: direct visualization, bilateral breath sounds, chest auscultation and CO2 monitor Tube secured with: adhesive tape. Dentition unchanged? Yes Difficult Airway? No. Procedure Start Time: 11/17/2024 7:45 AM. Staff Section Anesthesia Provider: Sandro Corona DO, Performed the procedure Provider #1: Annie Carter MD. Annie Carter MD GENERAL ANESTHESIA O [place] * URINALYSIS REFLEX TO MICROSCOPIC NO CULTURE (11/16/2024 1:08 PM [employer]) Color UA Straw Straw, Yellow 11/16/2024 1:29 PM [facility] Clarity UA Clear Clear 11/16/2024 1:29 PM [facility] Specific [place] UA 1.008 1.005 - 1.030 11/16/2024 1:29 PM [facility] pH UA 5.0 5.0 - 8.0 pH 11/16/2024 1:29 PM [facility] Protein UA Negative Negative 11/16/2024 1:29 PM [facility] Glucose UA Negative Negative 11/16/2024 1:29 PM [facility] Ketone UA Negative Negative 11/16/2024 1:29 PM [facility] Bilirubin UA Negative Negative 11/16/2024 1:29 PM [facility] Blood UA Negative Negative 11/16/2024 1:29 PM [facility] Nitrite UA Negative Negative 11/16/2024 1:29 PM [facility] Leukocyte Esterase Negative Negative 11/16/2024 1:29 PM [facility] Urobilinogen UA Negative Negative mg/dL 11/16/2024 1:29 PM [facility] RBC UA 0-2 None Seen, 0-2, 3-5 /HPF 11/16/2024 1:29 PM [facility] WBC UA 0-5 None Seen, 0-5 /HPF 11/16/2024 1:29 PM [facility] Squamous Epithelial Cells UA 0-2 None Seen, 0-2, 3-5 /HPF 11/16/2024 1:29 PM [facility] Urine URINE SPECIMEN OBTAINED BY CLEAN CATCH PROCEDURE / Unknown Collection / Unknown 11/16/2024 1:08 PM [employer] 11/16/2024 1:22 PM [employer] Narrative [facility] - 11/16/2024 1:29 PM [employer] Neftali Read MD LAB - URINALYS IS ORDERABLES Performing Organization Address City/[facility]/ZIP Co de Phone Number [address] [address], [facility] [phone] * PROTEIN URINE RANDOM QUANTITATIVE (11/16/2024 1:08 PM [employer]) Protein Urine <7 Not Established mg/dL 11/16/2024 1:43 PM [facility] Urine URINE SPECIMEN OBTAINED BY CLEAN CATCH PROCEDURE / Unknown Collection / Unknown 11/16/2024 1:08 PM [employer] 11/16/2024 1:22 PM [employer] Neftali Read MD LAB - URINE CH EMISTRY ORDERABLES Performing Organization Address City/[facility]/ZIP Co de Phone Number [address] [address], [place] [phone] * SODIUM URINE RANDOM (11/16/2024 1:08 PM [employer]) Sodium Urine 35 Not Established mmol/L 11/16/2024 1:43 PM [employer] [facility] Urine URINE SPECIMEN OBTAINED BY CLEAN CATCH PROCEDURE / Unknown Collection / Unknown 11/16/2024 1:08 PM [employer] 11/16/2024 1:22 PM [employer] Neftali Read MD LAB - URINE CH EMISTRY ORDERABLES [address] [address], [place] [phone] * UREA NITROGEN URINE RANDOM (11/16/2024 1:08 PM [employer]) Urea Nitrogen Random Urine 295 Not Established mg/dL 11/16/2024 1:43 PM [employer] [facility] Urine URINE SPECIMEN OBTAINED BY CLEAN CATCH PROCEDURE / Unknown Collection / Unknown 11/16/2024 1:08 PM [employer] 11/16/2024 1:22 PM [employer] Neftali Read MD LAB - URINE CH EMISTRY ORDERABLES Performing Organization Address City/[facility]/ZIP Co de Phone Number [address] [address], [place] [phone] * CREATININE URINE RANDOM (11/16/2024 1:08 PM [employer]) Creatinine Urine 44.87 Not Established mg/dL 11/16/2024 1:43 PM [employer] [facility] Urine URINE SPECIMEN OBTAINED BY CLEAN CATCH PROCEDURE / Unknown Collection / Unknown 11/16/2024 1:08 PM [employer] 11/16/2024 1:22 PM [employer] Neftali Read MD LAB - URINE CH EMISTRY ORDERABLES [address] [address], [place] [phone] * (ABNORMAL) VITAMIN D 25-HYDROXY (11/15/2024 12:56 AM [employer]) Only the most recent of2 resultswithin the time period is included. Vitamin D, 25 Hydroxy 25.9(L) 30.0 - 80.0 ng/mL 11/15/2024 3:11 AM [employer] [facility] Comment: The recommendations for 25-Hydroxy Vitamin D clinical decision points are as follows: Deficient: <20.0 ng/mL Insufficient: 20.0 - 29.9 ng/mL Sufficient: 30.0 - 100.0 ng/mL Potential Toxicity: >100 ng/mL Reference: The Endocrine Society Clinical Practice Guidelines. 2011 If the 25-Hydroxy Vitamin D results are inconsitent with clinical evidence, it is recommended that follow-up testing using a method such as LC/MS/MS be performed to confirm the result. Blood BLOOD SPECIMEN / Unknown Lab Venipuncture / Unknown 11/15/2024 12:56 AM [employer] 11/15/2024 2:11 AM [employer] Sol Deterding PA-C LAB - CHEMISTRY ORDERABLES [address] [address], [facility] [phone] * FOLATE (11/15/2024 12:56 AM [employer]) [facility] Folate 10.0 7.0 - 31.4 ng/mL 11/15/2024 3:11 AM [employer] [facility] Blood BLOOD SPECIMEN / Unknown Lab Venipuncture / Unknown 11/15/2024 12:56 AM [employer] 11/15/2024 2:11 AM [employer] Sol Deterding PA-C LAB - CHEMISTRY ORDERABLES [address] [address], [facility] [phone] * VITAMIN B12 (11/15/2024 12:56 AM [employer]) [facility] Vitamin B12 583 213 - 816 pg/mL 11/15/2024 3:11 AM [employer] [facility] Blood BLOOD SPECIMEN / Unknown Lab Venipuncture / Unknown 11/15/2024 12:56 AM [employer] 11/15/2024 2:11 AM [employer] Sol Deterding PA-C LAB - CHEMISTRY ORDERABLES [address] [address], [place] [phone] * (ABNORMAL) IRON + TRANSFERRIN PANEL (11/15/2024 12:56 AM [employer]) Iron 19(L) 40 - 150 ug/dL 11/15/2024 3:01 AM [facility] Transferrin 151(L) 174 - 382 mg/dL 11/15/2024 3:01 AM [facility] Transferrin Saturation % 10(L) 16 - 50 % 11/15/2024 3:01 AM [facility] TIBC Calculated 189(L) 240 - 450 ug/dL 11/15/2024 3:01 AM [facility] Blood BLOOD SPECIMEN / Unknown Lab Venipuncture / Unknown 11/15/2024 12:56 AM [employer] 11/15/2024 2:07 AM [employer] Sol Deterding PA-C LAB - CHEMISTRY ORDERABLES Performing Organization Address [facility]/ZIP Co de Phone Number [facility] [address] [place] [address], [place] [phone] * (ABNORMAL) FERRITIN (11/15/2024 12:56 AM [employer]) Ferritin 668(H) 13 - 204 ng/mL 11/15/2024 3:19 AM [facility] Blood BLOOD SPECIMEN / Unknown Lab Venipuncture / Unknown 11/15/2024 12:56 AM [employer] 11/15/2024 2:07 AM [employer] Sol Deterding PA-C LAB - CHEMISTRY ORDERABLES [facility] [address] [place] [address], [facility] [phone] * HEMOGLOBIN A1C (11/14/2024 4:18 PM [employer]) [facility] Hemoglobin A1c 5.0 <=5.6 % 11/14/2024 5:30 PM [facility] Estimated Average Glucose 97 mg/dL 11/14/2024 5:30 PM [facility] Comment: HbA1c Interpretation: Normal : < 5.7% Pre-diabetes: 5.7-6.4% Diabetes: Equal to or greater than 6.5% Test results diagnostic of diabetes should be repeated for confirmation. Treatment target values recommended by ADA and other clinical organizations should be used to evaluate metabolic control in patients. Reference: [place] [employer], Standards of Care in Diabetes -2020 In patients 70 years and older consider HbA1c target range of 7.0-7.5% (Reference: Samy Cunningham et al. JAMDA. 2012) The Sebia assay for the measurement of HbA1c is a National Glycohemoglobin Standardization Program (NGSP) certified method. Blood BLOOD SPECIMEN / Unknown Lab Venipuncture / Unknown 11/14/2024 4:18 PM [employer] 11/14/2024 4:33 PM [employer] Daryn North MD LAB - CHEMISTRY [facility] Organization Address City/State/ZIP Co de Phone Number [facility] [address] [place] [address], [facility] [phone] * (ABNORMAL) COMPREHENSIVE METABOLIC PANEL (11/14/2024 4:18 PM [employer]) Only the most recent of2 resultswithin the time period is included. [facility] BUN 25 7 - 26 mg/dL 11/14/2024 5:02 PM [facility] Creatinine 1.51(H) 0.56 - 0.96 mg/dL 11/14/2024 5:02 PM [facility] Sodium 135(L) 136 - 145 mmol/L 11/14/2024 5:02 PM [facility] Potassium 4.2 3.5 - 4.5 mmol/L 11/14/2024 5:02 PM [facility] Chloride 105 98 - 107 mmol/L 11/14/2024 5:02 PM [facility] CO2 20(L) 22 - 29 mmol/L 11/14/2024 5:02 PM [facility] Glucose 329(H) 70 - 99 mg/dL 11/14/2024 5:02 PM [facility] Calcium 8.3(L) 8.4 - 10.2 mg/dL 11/14/2024 5:02 PM [facility] Protein Total 5.7(L) 6.0 - 8.3 g/dL 11/14/2024 5:02 PM [facility] Albumin 2.2(L) 3.4 - 5.0 g/dL 11/14/2024 5:02 PM [facility] Bilirubin Total 0.4 0.2 - 1.2 mg/dL 11/14/2024 5:02 PM [facility] Alkaline Phosphatase 292(H) 40 - 150 U/L 11/14/2024 5:02 PM [facility] ALT 262(H) 5 - 55 U/L 11/14/2024 5:02 PM [facility] AST 373(H) 5 - 34 U/L 11/14/2024 5:02 PM [facility] Anion Gap 10 6 - 16 11/14/2024 5:02 PM [facility] BUN/Creatinine Ratio 17 7 - 23 11/14/2024 5:02 PM [facility] Osmolality Calculated 297(H) 275 - 295 mOsm/kg 11/14/2024 5:02 PM [facility] Albumin/Globulin Ratio 0.6(L) 1.1 - 2.3 11/14/2024 5:02 PM [facility] eGFR by CKD-EPI 38(L) >=90 mL/min/1.7 3 m2 11/14/2024 5:02 PM [facility] Blood BLOOD SPECIMEN / Unknown Lab Venipuncture / Unknown 11/14/2024 4:18 PM [employer] 11/14/2024 4:33 PM [employer] Missy Melgar PA-C LAB - CHEMIS TRY ORDERABLES [facility] [address] [place] [address], [facility] [phone] * ETT LINE PERFORMABLE (11/14/2024 7:57 AM [employer]) Narrative Mauro Miguel Anes Asst - 11/14/2024 7:57 AM [employer] Mauro Miguel Anes Asst 11/14/2024 7:57 AM Endotracheal Tube Placement: Patient Location: OR. Intubation Event Date/Time: 11/14/2024 7:33 AM Procedure: intubation ([id number]) Procedure Section: Sedation: IV sedation. Indications for Airway Management: airway protection Procedure pretreatments used? No Induction: standard IV Patient Position: sniffing Mask Ventilation: easy. Blade Type: Solorzano Blade Size: 2 Laryngoscopy View: grade 1 (full cords) Intubation Adjuncts: stylet Tube: endotracheal tube Placement: oral Tube Size (FR): 7 Depth of Insertion (CM): 20 Measured From: lips Cuff Inflated With: air Number of Attempts: 1. Placement Verified By: direct visualization, bilateral breath sounds, chest auscultation and CO2 monitor CXR Findings: ETT in proper place. Tube secured with: adhesive tape. Dentition unchanged? Yes Difficult Airway? No. Procedure Start Time: 11/14/2024 7:33 AM. Staff Section Anesthesia Provider: Kin Aden MD Provider #1: Mauro Miguel Anes Asst, Performed the procedure. Kin Aden MD GENERAL ANESTHESIA O RDERABLES * (ABNORMAL) CBC W AUTO DIFFERENTIAL (11/14/2024 6:47 AM [employer]) Only the most recent of2 resultswithin the time period is included. Pathologist [facility] WBC 7.3 4.0 - 10.7 x10E9/L 11/14/2024 7:45 AM [employer] [facility] RBC Count 3.30(L) 3.90 - 5.20 x10E12/L 11/14/2024 7:45 AM [employer] [facility] Hemoglobin 8.9(L) 11.9 - 15.8 g/dL 11/14/2024 7:45 AM [facility] Hematocrit 27.8(L) 34.8 - 46.1 % 11/14/2024 7:45 AM [facility] MCV 84.2 80.0 - 98.0 fL 11/14/2024 7:45 AM [facility] MCH 27.0 26.7 - 33.6 pg 11/14/2024 7:45 AM [facility] MCHC 32.0 31.7 - 36.3 g/dL 11/14/2024 7:45 AM [facility] RDW-CV 14.9(H) 11.3 - 14.8 % 11/14/2024 7:45 AM [facility] Platelet Count 11/14/2024 7:45 AM [facility] Comment:Platelets clumped on slide but appears adequate. Recommend repeat with a sodium citrate blue top tube. MPV 11/14/2024 7:45 AM [facility] Comment:Unable to report Neutrophil % 73.6 41.0 - 74.0 % 11/14/2024 7:45 AM [facility] Lymphocyte % 16.6(L) 17.0 - 47.0 % 11/14/2024 7:45 AM [facility] Monocyte % 8.4 3.0 - 11.0 % 11/14/2024 7:45 AM [facility] Eosinophil % 0.8 0.0 - 7.0 % 11/14/2024 7:45 AM [facility] Basophil % 0.3 0.0 - 1.6 % 11/14/2024 7:45 AM [facility] Immature Granulocytes % 0.3 0.0 - 1.0 % 11/14/2024 7:45 AM [facility] Neutrophil Absolute 5.34 1.60 - 7.50 x10E9/L 11/14/2024 7:45 AM [facility] Lymphocyte Absolute 1.20 1.00 - 4.40 x10E9/L 11/14/2024 7:45 AM [facility] Monocyte Absolute 0.61 0.15 - 1.00 x10E9/L 11/14/2024 7:45 AM [facility] Eosinophil Absolute 0.06 0.00 - 0.60 x10E9/L 11/14/2024 7:45 AM [facility] Basophil Absolute 0.02 0.00 - 0.13 x10E9/L 11/14/2024 7:45 AM [employer] [facility] Blood BLOOD SPECIMEN / Unknown Venipuncture / Unknown 11/14/2024 6:47 AM [employer] 11/14/2024 6:54 AM [employer] Flaco Rebollar MD LAB - HEMATOLOGY ORD ERABLES [facility] [address] [place] [address], [facility] [phone] * XR Wrist Left 3Vw or More (11/12/2024 9:24 AM [employer]) Anatomical Region Laterality Modality Wrist / Hand Radiographic Christa ging 11/12/2024 9:34 AM [employer] Impressions 11/12/2024 9:36 AM [employer] IMPRESSION: Mildly displaced distal radial fracture. > Interpreting Provider: Yefri Groves MD on 11/12/2024 9:36 AM Narrative 11/12/2024 9:36 AM [employer] PROCEDURE: XR WRIST LEFT 3VW OR MORE DATE/TIME OF EXAM: 11/12/2024 9:24 AM CLINICAL INFORMATION: None relevant/not provided if blank. Indication: S62.102A: Closed fracture of left wrist, initial encounter Additional History: COMPARISON: None. FINDINGS: A splint is present obscuring bone and soft tissue detail. A mildly displaced intra-articular fracture of the distal radius is present. There is no dislocation. There is mild degenerative change at the first carpometacarpal joint. There is mild soft tissue swelling. Procedure Note Yefri Groves MD - 11/12/2024 PROCEDURE: XR WRIST LEFT 3VW OR MORE DATE/TIME OF EXAM: 11/12/2024 9:24 AM CLINICAL INFORMATION: None relevant/not provided if blank. Indication: S62.102A: Closed fracture of left wrist, initial encounter Additional History: COMPARISON: None. FINDINGS: A splint is present obscuring bone and soft tissue detail. A mildly displaced intra-articular fracture of the distal radius is present.There is no dislocation. There is mild degenerative change at the first carpometacarpal joint. There is mild soft tissue swelling. IMPRESSION: Mildly displaced distal radial fracture. > Interpreting Provider: Yefri Groves MD on 11/12/2024 9:36 AM Daryn North MD DIAGNOSTIC IMAGING O RDERABLES * XR Tibia Fibula Right 2Vw (11/12/2024 9:22 AM [employer]) Only the most recent of4 resultswithin the time period is included. Anatomical Region Laterality Modality Lower Extremity Radiographic Christa ging 11/12/2024 9:32 AM [employer] Impressions 11/12/2024 9:34 AM [employer] IMPRESSION: Redemonstration of a proximal tibial fracture fixation and distal tibiofibular syndesmotic fixation, unchanged in alignment. > Interpreting Provider: Yefri Groves MD on 11/12/2024 9:34 AM Narrative 11/12/2024 9:34 AM [employer] PROCEDURE: XR TIBIA FIBULA RIGHT 2VW DATE/TIME OF EXAM: 11/12/2024 9:23 AM CLINICAL INFORMATION: None relevant/not provided if blank. Indication: S82.121A: Closed fracture of lateral portion of right tibial plateau, initial encounter Additional History: COMPARISON: 10/22/2024 FINDINGS: Again demonstrated are postsurgical changes reflecting open reduction and internal fixation of a proximal tibial fracture with posterior medial and anterolateral plates and screws. The hardware is intact. The fracture is unchanged in alignment. There is again distal tibiofibular syndesmotic fixation with a fibular plate and 2 screws. The hardware is intact and the alignment is unchanged. Pin tracks are present in the mid tibial shaft. There is soft tissue swelling. Procedure Note Yefri Groves MD - 11/12/2024 PROCEDURE: XR TIBIA FIBULA RIGHT 2VW DATE/TIME OF EXAM: 11/12/2024 9:23 AM CLINICAL INFORMATION: None relevant/not provided if blank. Indication: S82.121A: Closed fracture of lateral portion of right tibial plateau, initial encounter Additional History: COMPARISON: 10/22/2024 FINDINGS: Again demonstrated are postsurgical changes reflecting open reductionand internal fixation of a proximal tibial fracture with posterior medialand anterolateral plates and screws. The hardware is intact. The fracture is unchanged in alignment. There is again distal tibiofibular syndesmotic fixation with a fibular plate and 2 screws. The hardware is intact andthe alignment is unchanged. Pin tracks are present in the mid tibial shaft. There is soft tissue swelling. IMPRESSION: Redemonstration of a proximal tibial fracture fixation and distal tibiofibular syndesmotic fixation, unchanged in alignment. > Interpreting Provider: Yefri Groves MD on 11/12/2024 9:34 AM Daryn North MD DIAGNOSTIC IMAGING O RDERABLES * [facility] (10/10/2024 11:01 AM [employer]) Only the most recent of2 resultswithin the time period is included. Narrative [facility] - 10/10/2024 11:02 AM [employer] Fluoroscopy was used for this exam in the OR. Please see the Operative report. Daryn North MD FLUOROSCOPY ORDERABL ES [facility] * IV PLACEMENT PERFORMABLE (10/10/2024 8:22 AM [employer]) Narrative Karol Dunn APRN-CRNA - 10/10/2024 8:22 AM [employer] Karol Dunn APRN-CRNA 10/10/2024 8:23 AM Peripheral IV Line Placement: Patient Location: OR Procedure: IV start ([id number]) Procedure Section: Skin Prep: alcohol. Orientation: left Location: forearm Catheter Gauge: 18 Number of Attempts: 1. Procedure Tolerance: performed while patient under general anesthesia. Staff Section Anesthesia Provider: Karol Dunn APRN-CRNA, Performed the procedure Joey Oneal MD GENERAL ANESTHESIA O [place] * ETT LINE PERFORMABLE (10/10/2024 8:22 AM [employer]) Narrative Karol Dunn APRN-CRNA - 10/10/2024 8:22 AM [employer] Karol Dunn APRN-CRNA 10/10/2024 8:22 AM Endotracheal Tube Placement: Patient Location: OR. Intubation Event Date/Time: 10/10/2024 7:43 AM Procedure: intubation ([id number]) Procedure Section: Sedation: under general anesthesia. Indications for Airway Management: anesthesia Procedure pretreatments used? No Induction: standard IV Patient Position: sniffing Mask Ventilation: easy. Blade Type: Abelino Blade Size: 3 Laryngoscopy View: grade 1 (full cords) Intubation Adjuncts: stylet Tube: endotracheal tube Placement: oral Tube type: cuff - inflated Tube Size (MM): 7 Depth of Insertion (CM): 21 Measured From: teeth Cuff volume (mL): 7 Cuff Inflated With: air Number of Attempts: 1. Placement Verified By: direct visualization, bilateral breath sounds, chest auscultation and CO2 monitor CXR Findings: ETT in proper place. Tube secured with: adhesive tape. Dentition unchanged? Yes Difficult Airway? No. Procedure Start Time: 10/10/2024 7:43 AM. Staff Section Anesthesia Provider: Karol Dunn APRN-[employer], Performed the procedure Joey Oneal MD GENERAL ANESTHESIA O RDERABLES * XR Knee Right 2Vw or Less (09/21/2024 11:00 AM [employer]) Only the most recent of2 resultswithin the time period is included. Anatomical Region Laterality Modality Lower Extremity Digital Radiogra phy 09/21/2024 7:17 PM [employer] Impressions 09/21/2024 7:18 PM [employer] IMPRESSION: Comminuted fracture of the proximal tibia with interval placement of traction pin in the distal femoral diaphysis. > Interpreting Provider: Natalio Nam on 09/21/2024 7:18 PM Narrative 09/21/2024 7:18 PM [employer] PROCEDURE: XR KNEE RIGHT 2VW OR LESS DATE/TIME OF EXAM: 09/21/2024 11:00 AM CLINICAL INFORMATION: None relevant/not provided if blank. Indication: S82.201A: Closed fracture of right tibia and fibula, initial encounter S82.401A: Closed fracture of right tibia and fibula, initial encounter Additional History: COMPARISON: Right knee radiograph 09/18/2024. TECHNIQUE: AP and lateral views of the right knee were obtained. FINDINGS: Comminuted fracture of the proximal tibia with intra-articular extension into the knee joint and involving the lateral tibial plateau as well as the tibial spine. Associated small knee joint effusion present. Interval placement of traction pin in the distal femoral diaphysis. Procedure Note Natalio Nam MD - 09/21/2024 PROCEDURE: XR KNEE RIGHT 2VW OR LESS DATE/TIME OF EXAM: 09/21/2024 11:00 AM CLINICAL INFORMATION: None relevant/not provided if blank. Indication: S82.201A: Closed fracture of right tibia and fibula, initial encounter S82.401A: Closed fracture of right tibia and fibula, initial encounter Additional History: COMPARISON: Right knee radiograph 09/18/2024. TECHNIQUE: AP and lateral views of the right knee were obtained. FINDINGS: Comminuted fracture of the proximal tibia with intra-articular extension into the knee joint and involving the lateral tibial plateau as well asthe tibial spine. Associated small knee joint effusion present. Interval placement of traction pin in the distal femoral diaphysis. IMPRESSION: Comminuted fracture of the proximal tibia with interval placement of traction pin in the distal femoral diaphysis. > Interpreting Provider: Natalio Nam on 09/21/2024 7:18 PM Marifer Saeed MD DIAGNOSTIC IMAGING O [place] * IV PLACEMENT PERFORMABLE (09/19/2024 4:47 PM DIRECTOR OF [employer]) Karol Cat APRN-CRNA - 09/19/2024 4:47 PM DIRECTOR OF [employer] Karol Dunn APRN-CRNA 09/19/2024 4:47 PM Peripheral IV Line Placement: Patient Location: OR Insertion Time: 09/19/2024 4:39 PM Procedure: IV start ([id number]) Procedure Section: Skin Prep: alcohol. Orientation: left Location: hand Catheter Gauge: 20 Number of Attempts: 1. Procedure Tolerance: performed while patient under general anesthesia. Staff Section Anesthesia Provider: Karol Dunn APRN-CRNA, Performed the procedure Chelsey Minaya MD GENERAL ANESTHESIA O [place] * ETT LINE PERFORMABLE (09/19/2024 4:46 PM DIRECTOR [employer]) Karol Cat APRN-CRNA - 09/19/2024 4:46 PM DIRECTOR OF [employer] Karol Dunn APRN-CRNA 09/19/2024 4:47 PM Endotracheal Tube Placement: Patient Location: OR. Intubation Event Date/Time: 09/19/2024 4:23 PM Procedure: intubation ([id number]) Procedure Section: Sedation: under general anesthesia. Indications for Airway Management: anesthesia Procedure pretreatments used? No Induction: standard IV Patient Position: sniffing Mask Ventilation: easy. Blade Type: Abelino Blade Size: 3 Laryngoscopy View: grade 1 (full cords) Intubation Adjuncts: stylet Tube: endotracheal tube Placement: oral Tube type: cuff - inflated Tube Size (MM): 7 Depth of Insertion (CM): 21 Measured From: lips Cuff volume (mL): 7 Cuff Inflated With: air Number of Attempts: 1. Placement Verified By: direct visualization, bilateral breath sounds, chest auscultation and CO2 monitor CXR Findings: ETT in proper place. Tube secured with: adhesive tape. Dentition unchanged? Yes Difficult Airway? No. Procedure Start Time: 09/19/2024 4:23 PM. Staff Section Anesthesia Provider: Karol Dunn, [employer], Performed the procedure Chelsey Minaya MD GENERAL ANESTHESIA O [place] * CT Tibia Fibula Right Wo Cont (09/19/2024 1:14 AM DIRECTOR [employer]) Anatomical Region Laterality Modality Lower Extremity Computed Tomogra phy 09/19/2024 1:28 AM DIRECTOR [employer] Impressions 09/19/2024 1:47 AM DIRECTOR [employer] IMPRESSION: 1.Acute comminuted and moderately displaced fracture of the proximal tibia with intra-articular extension involving the medial and lateral tibial plateaus. 2.Soft tissue swelling about the knee and proximal lower leg with small volume hemarthrosis. Report dictated by Valentín Zheng MD (vice president of customer service). I, Alejandro Hung MD have personally reviewed and interpreted this examination/study. > Interpreting Provider: Alejandro Hung MD on 09/19/2024 1:47 AM Narrative 09/19/2024 1:47 AM DIRECTOR [employer] PROCEDURE: CT KNEE RIGHT WO CONTRAST, CT TIBIA FIBULA RIGHT WO CONT, DATE/TIME OF EXAM: 09/19/2024 1:15 AM, LOCATION [facility] INDICATION: M79.604: Right leg pain ADDITIONAL CLINICAL INFORMATION: Ordering Provider Reason For Exam: eval fracture (accession [id number]), fracture (accession [id number]) COMPARISON: Right knee and right tibia-fibula radiographs dated 09/18/2024. TECHNIQUE: Axial CT images of the right knee and right tibia fibula where obtained without contrast according to standard protocol. Coronal and sagittal reformatted images were submitted. FINDINGS: Acute comminuted and moderately displaced fracture of the proximal tibia with intra-articular extension involving both the medial and lateral tibial plateaus including the tibial spine. Depression of the lateral tibial plateau fracture fragments measuring up to 6 mm. The distal femur is intact. No knee dislocation. Soft tissue swelling about the knee and proximal lower leg. Small volume hemarthrosis. No acute fracture of the distal tibia or fibula. Likely chronic fracture deformity of the distal fibula with postsurgical changes of the tibiofibular syndesmosis with lateral approach plate and screws and resultant osseous fusion. 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 Procedure Note Alejandro Hung MD - 09/19/2024 PROCEDURE: CT KNEE RIGHT WO CONTRAST, CT TIBIA FIBULA RIGHT WO CONT, DATE/TIME OF EXAM: 09/19/2024 1:15 AM, LOCATION [facility] INDICATION: M79.604: Right leg pain ADDITIONAL CLINICAL INFORMATION: Ordering Provider Reason For Exam: eval fracture (accession [id number]), fracture (accession [id number]) COMPARISON: Right knee and right tibia-fibula radiographs dated 09/18/2024. TECHNIQUE: Axial CT images of the right knee and right tibia fibulawhere obtained without contrast according to standard protocol. Coronal and sagittal reformatted images were submitted. FINDINGS: Acute comminuted and moderately displaced fracture of the proximal tibia with intra-articular extension involving both the medial and lateraltibial plateaus including the tibial spine. Depression of the lateral tibial plateau fracture fragments measuring up to 6 mm. The distal femur is intact. No knee dislocation. Soft tissue swelling about the knee and proximal lower leg. Small volume hemarthrosis. No acute fracture of the distal tibia or fibula. Likely chronic fracture deformity of the distal fibula with postsurgical changes of the tibiofibular syndesmosis with lateral approach plate and screws and resultant osseous fusion. 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 IMPRESSION: 1.Acute comminuted and moderately displaced fracture of the proximaltibia with intra-articular extension involving the medial and lateral tibial plateaus. 2.Soft tissue swelling about the knee and proximal lower leg with small volume hemarthrosis. Report dictated by Valentín Zheng MD (vice president of customer service). Alejandro Garcia MD have personally reviewed and interpreted this examination/study. > Interpreting Provider: Alejandro Hung MD on 09/19/2024 1:47 AM Adeola Carreon MD CT ORDERABLES * CT Knee Right Wo Contrast (09/19/2024 1:14 AM [employer]) Anatomical Region Laterality Modality Lower Extremity Computed Tomogra phy 09/19/2024 1:28 AM [employer] Impressions 09/19/2024 1:47 AM [employer] IMPRESSION: 1.Acute comminuted and moderately displaced fracture of the proximal tibia with intra-articular extension involving the medial and lateral tibial plateaus. 2.Soft tissue swelling about the knee and proximal lower leg with small volume hemarthrosis. Report dictated by Valentín Zheng MD (vice president of customer service). Alejandro Garcia MD have personally reviewed and interpreted this examination/study. > Interpreting Provider: Alejandro Hung MD on 09/19/2024 1:47 AM Narrative 09/19/2024 1:47 AM [employer] PROCEDURE: CT KNEE RIGHT WO CONTRAST, CT TIBIA FIBULA RIGHT WO CONT, DATE/TIME OF EXAM: 09/19/2024 1:15 AM, LOCATION [facility] INDICATION: M79.604: Right leg pain ADDITIONAL CLINICAL INFORMATION: Ordering Provider Reason For Exam: eval fracture (accession [id number]), fracture (accession [id number]) COMPARISON: Right knee and right tibia-fibula radiographs dated 09/18/2024. TECHNIQUE: Axial CT images of the right knee and right tibia fibula where obtained without contrast according to standard protocol. Coronal and sagittal reformatted images were submitted. FINDINGS: Acute comminuted and moderately displaced fracture of the proximal tibia with intra-articular extension involving both the medial and lateral tibial plateaus including the tibial spine. Depression of the lateral tibial plateau fracture fragments measuring up to 6 mm. The distal femur is intact. No knee dislocation. Soft tissue swelling about the knee and proximal lower leg. Small volume hemarthrosis. No acute fracture of the distal tibia or fibula. Likely chronic fracture deformity of the distal fibula with postsurgical changes of the tibiofibular syndesmosis with lateral approach plate and screws and resultant osseous fusion. 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 Procedure Note Alejandro Hung MD - 09/19/2024 PROCEDURE: CT KNEE RIGHT WO CONTRAST, CT TIBIA FIBULA RIGHT WO CONT, DATE/TIME OF EXAM: 09/19/2024 1:15 AM, LOCATION [facility] INDICATION: M79.604: Right leg pain ADDITIONAL CLINICAL INFORMATION: Ordering Provider Reason For Exam: eval fracture (accession [id number]), fracture (accession [id number]) COMPARISON: Right knee and right tibia-fibula radiographs dated 09/18/2024. TECHNIQUE: Axial CT images of the right knee and right tibia fibulawhere obtained without contrast according to standard protocol. Coronal and sagittal reformatted images were submitted. FINDINGS: Acute comminuted and moderately displaced fracture of the proximal tibia with intra-articular extension involving both the medial and lateraltibial plateaus including the tibial spine. Depression of the lateral tibial plateau fracture fragments measuring up to 6 mm. The distal femur is intact. No knee dislocation. Soft tissue swelling about the knee and proximal lower leg. Small volume hemarthrosis. No acute fracture of the distal tibia or fibula. Likely chronic fracture deformity of the distal fibula with postsurgical changes of the tibiofibular syndesmosis with lateral approach plate and screws and resultant osseous fusion. 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 IMPRESSION: 1.Acute comminuted and moderately displaced fracture of the proximaltibia with intra-articular extension involving the medial and lateral tibial plateaus. 2.Soft tissue swelling about the knee and proximal lower leg with small volume hemarthrosis. Report dictated by Valentín Zheng MD (vice president of customer service). I, Alejandro Hung MD have personally reviewed and interpreted this examination/study. > Interpreting Provider: Alejandro Hung MD on 09/19/2024 1:47 AM Adeola Carreon MD CT ORDERABLES * XR Foot Right 3Vw or More (09/19/2024 12:45 AM [employer]) Anatomical Region Laterality Modality Ankle / Foot Digital Radiogra phy 09/19/2024 1:25 AM [employer] Narrative 09/19/2024 9:28 AM [employer] PROCEDURE: XR FOOT RIGHT 3VW OR MORE, DATE/TIME OF EXAM: 09/19/2024 12:45 AM, LOCATION [facility] INDICATION: M79.604: Right leg pain ADDITIONAL CLINICAL INFORMATION: Ordering Provider Reason For Exam: eval for fracture Technologist Note: Additional: COMPARISON: No prior right foot x-rays are available. Correlation is made with right ankle x-rays dated 07/18/2021, 03/28/2021 FINDINGS/IMPRESSION: No acute fracture or dislocation. The joint spaces are maintained. There is mild sclerosis and lucency in the posterior aspect of the calcaneus reflecting chronic postsurgical changes (bone graft harvest site). Postsurgical changes are demonstrated in the ankle reflecting distal tibiofibular fixation with plate and screws. Report dictated by Jasmeet Simental MD I, Yefri Groves MD have personally reviewed and interpreted this examination/study. > Interpreting Provider: Yefri Groves MD on 09/19/2024 9:28 AM Procedure Note Yefri Groves MD - 09/19/2024 PROCEDURE: XR FOOT RIGHT 3VW OR MORE, DATE/TIME OF EXAM: 2:45 AM, LOCATION [facility] INDICATION: M79.604: Right leg pain ADDITIONAL CLINICAL INFORMATION: Ordering Provider Reason For Exam: eval for fracture Technologist Note: Additional: COMPARISON: No prior right foot x-rays are available. Correlation is made with right ankle x-rays dated 07/18/2021, 03/28/2021 FINDINGS/IMPRESSION: No acute fracture or dislocation. The joint spaces are maintained. Thereis mild sclerosis and lucency in the posterior aspect of the calcaneus reflecting chronic postsurgical changes (bone graft harvest site). Postsurgical changes are demonstrated in the ankle reflecting distal tibiofibular fixation with plate and screws. Report dictated by Jasmeet Simental MD I, Yefri Groves MD have personally reviewed and interpreted this examination/study. > Interpreting Provider: Yefri Groves MD on 09/19/2024 9:28 AM Adeola Carreon MD DIAGNOSTIC IMAGING O [place] * ENDOSCOPY, COLON, SCREENING (05/30/2024 9:42 AM CDT) Report Endoscopy POC Endoscopy Department Report _ Patient Name: Savanna Veliz Procedure Date: 05/30/2024 9:42 AM Date of : 1960 Classification: Outpatient Gender: Female Ethnicity: Not or Race: White _ Providers: Balwinder Goncalves MD, Nai Ford MD (Fellow) Referring MD: Bandar Smith MD; Jacinto Jaramillo MD Procedure: Colonoscopy Indications: Screening for colorectal malignant neoplasm Medications: Monitored Anesthesia Care Description of Procedure: Pre-Anesthesia Assessment: - Prior to the procedure, a History and Physical was performed, and patient medications and allergies were reviewed. The patient's tolerance of previous anesthesia was also reviewed. The risks and benefits of the procedure and the sedation options and risks were discussed with the patient. All questions were answered, and informed consent was obtained. Prior Anticoagulants: The patient has taken no anticoagulant or antiplatelet agents. ASA Grade Assessment: III - A patient with severe systemic disease. After reviewing the risks and benefits, the patient was deemed in satisfactory condition to undergo the procedure. After I obtained informed consent, the scope was passed under direct vision. Throughout the procedure, the patient's blood pressure, pulse, and oxygen saturations were monitored continuously. The Colonoscope was introduced through the anus and advanced to the terminal ileum, with identification of the appendiceal orifice and IC valve. The colonoscopy was performed without difficulty. The patient tolerated the procedure well. The quality of the bowel preparation was good. The terminal ileum, ileocecal valve, appendiceal orifice, and rectum were photographed. Findings: The terminal ileum appeared normal. A 3 mm polyp was found in the cecum. The polyp was sessile. The polyp was removed with a jumbo cold forceps. Resection and retrieval were complete. A 5 mm polyp was found in the cecum. The polyp was sessile. The polyp was removed with a cold snare. Resection and retrieval were complete. The exam was otherwise without abnormality on direct and retroflexion views. Estimated Blood Loss: Estimated blood loss: none. Complications: No immediate complications. Impression: - The examined portion of the ileum was normal. - One 3 mm polyp in the cecum, removed with a jumbo cold forceps. Resected and retrieved. - One 5 mm polyp in the cecum, removed with a cold snare. Resected and retrieved. - The examination was otherwise normal on direct and retroflexion views. Recommendation: - Discharge patient to home (with escort). - Resume previous diet. - Continue present medications. - Await pathology results. - Repeat colonoscopy in 5 years for surveillance. - Patient has a contact number available for emergencies. The signs and symptoms of potential delayed complications were discussed with the patient. Return to normal activities tomorrow. Written discharge instructions were provided to the patient. Procedure Code(s): --- Professional --- 61870, Colonoscopy, flexible; with removal of tumor(s), polyp(s), or other lesion(s) by snare technique 06170, 59, Colonoscopy, flexible; with biopsy, single or multiple Diagnosis Code(s): --- Professional --- Z12.11, Encounter for screening for malignant neoplasm of colon D12.0, Benign neoplasm of cecum CPT copyright 2021 [employer]. All rights reserved. The codes documented in this report are preliminary and upon certified medical coder review may be revised to meet current compliance requirements. Balwinder Goncalves MD 05/30/2024 10:32:28 AM This report has been signed electronically. Note Initiated On: 05/30/2024 9:42 AM Number of Addenda: [address] [address] [facility] [employer] 05/30/2024 9:42 AM CDT Balwinder Goncalves MD GI PROCEDURE ORDERAB LES [facility] [employer] from Last 3 Months or Most Recently Relevant to Health Maintenance Advance Directives * Full Code (Latest Code Status on File) Date Activated Date Inactivated Comments 11/14/2024 9:08 AM 11/20/2024 7:39 PM * Full Code Date Activated Date Inactivated Comments 10/10/2024 12:24 PM 10/13/2024 4:48 PM * Full Code Date Activated Date Inactivated Comments 09/19/2024 1:41 AM 09/23/2024 10:52 PM * Full Code Date Activated Date Inactivated Comments 03/15/2021 12:27 PM 03/16/2021 2:18 PM Care Teams Self Propelled Dredge Operator Relationship Specialty Start Date End Date Geovanni Rodriguez DO [address] [place] [address] PCP - General Internal Medicine 09/19/24
--- OUTSIDE RECORDS SUMMARY | 2024-11-24 17:18 | XMS_ITS | Encounter Summary ---
Author Organization [facility] Address [address] [place] [address] Care Team Providers Care Crook Operator Name Role Phone Bandar Smith MD Primary Care Provider [phone] Erika Lopes OT Unavailable Unavailable Celestino Parra MD Unavailable [phone] Fan Edwards Unavailable Unavailable Geovanni Rodriguez DO Primary Care Provider [phone] Encounter Details Date Type Department Care Team (Late st Contact Info) Description 01/21/2024 Orders Only [facility] Health Information Management [address] [place] [id number] Scanning, Provider Social History Tobacco Use Types Packs/Day Years Used Date Smoking Tobacco: Former Cigarettes Q uit: 1988 Smokeless Tobacco: Former Alcohol Use Standard Drinks/Week Comments Not Currently 0 (1 standard drink = 0.6 oz pur e alcohol) PHQ-2 Answer Date Recorded PHQ-2 Score 1 06/07/2019 Comments Unknown Sex and Gender Information Value Date Recorded Sex Assigned at Not on file Legal Sex Female 2:46 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 Gender Identity Not on file Sexual Orientation Not on file Occupation Industry Job Start Date Job End Date [employer] Not on file Not on file Not on fi le documented as of this encounter Plan of Treatment Not on file documented as of this encounter Procedures Procedure Name Priority Date/Time Associated Diagnosis Comments CARDIOLOGY DOCUMENT SCAN 01/21/2024 documented in this encounter Results * Cardiology Document Scan (01/21/2024) Anatomical Region Laterality Modality Other us Provider Scanning CV CARDIAC SERVICES PROCEDURES Final Result documented in this encounter Visit Diagnoses Not on filedocumented in this encounter Care Teams Crook Operator Relationship Specialty Start Date End Date Bandar Smith MD [address] [place] [address] PCP - General Internal Medicine 05/20/18 07/07/24 Geovanni Rodriguez DO [address] [place] [address] PCP - General Internal Medicine 07/08/24 Erika Lopes, OT Occupational Therapist Occupational Therapy 06/10/18 Celestino Parra MD Surgeon Vascular Surgery 02/19/19 Fan Edwards Referring Physician Gastroenterology 02/19/19 documented as of this encounter
--- OUTSIDE RECORDS SUMMARY | 2024-11-24 17:18 | XMS_ITS | Clinical Summary ---
Author Organization [facility] [place] [address] [facility] [address] Address [address] [place] [id number] Care Team Providers Care Supervisor Vendor Quality Name Role Phone ChatoniteshSoo rosadomigdalia ALMEIDA Unavailable Unavailable Celestino Parra MD Unavailable [phone] Fan Edwards Unavailable Unavailable Geovanni Rodriguez DO Primary Care Provider Allergies Active Allergy Reactions Criticality Noted Date Comments Adhesive Tape-Silicones Other (See comments) Low Reaction: REDNESS, Amoxicillin Other (See comments) Low 11/22/2022 Yeast infection Aspirin Chest tightness Medium Reaction: OTHER REACTION, , Meperidine Hives Medium 11/22/2022 Nickel Other (See comments) Low Reaction: SKIN REDNESS & HOTNESS, Other Rash,Unknown Medium 02/14/2021 Reaction: RASH, Reaction: REDNESS, Sulfa (Sulfonamide Antibiotics) Rash Medium Reaction: RASH, Medications omeprazole (PriLOSEC) 40 mg capsule Take 1 capsule (40 mg total) by mouth daily Active amLODIPine (NORVASC) 5 mg tablet Take 1 tablet (5 mg total) by mouth daily Active atorvastatin (LIPITOR) 20 mg tablet Take 1 tablet (20 mg total) by mouth daily Active hydroCHLOROthia zide (HYDRODIURIL) 25 mg tablet Take 1 tablet (25 mg total) by mouth daily Active losartan (COZAAR) 100 mg tablet Take 1 tablet (100 mg total) by mouth daily Active ergocalciferol (VITAMIN D) 50,000 unit capsule every 14 (fourteen) days Active Active Problems Problem Noted Date Diagnosed Date Other chest pain 01/10/2024 Fracture of lateral malleolu s of right fibula at syndesmosis 05/30/2023 Osteoarthritis 05/30/2023 Plantar fasciitis 05/30/2023 Radial styloid tenosynovitis 05/30/2023 Arrhythmia 11/22/2022 Primary osteoarthritis of right ankle 06/13/2021 UMA positive 05/26/2021 Arthralgia of right ankle 03/15/2021 Osteoarthritis of carpometacarpal (CMC) joint of thumb 11/06/2019 Pain of left hand 11/06/2019 Trigger finger of right hand 11/06/2019 Lumbar stenosis with neurogenic claudication 05/2019 Assessment & Plan (02/19/2019 3:27 PM CDT): Ms. Veliz has symptoms consistent with lumbar stenosis with neurogenic claudication. The current study does not visualize soft tissues well. We will get AP and flexion-extension lumbar spine films to assess for any instability above the prior fusion at L5-S1. We will get an MRI of the lumbar spine without contrast to look for any nerve root impingement. We will speak to the patient about the results by phone. I would recommend that she undergo epidural steroid injections prior to considering surgical intervention. We will refer her to Pain Management for these. I plan to see her back in 4-6 months for re-evaluation. We will give her a script for gabapentin as well. Surgical History Surgery Date Site/Laterality Comments OTHER SURGICAL HISTORY 10/15/1984 - 10/14/1985 Ulcer removed from rectum TUBAL LIGATION 10/15/1988 - 10/14/1989 TONSILLECTOMY 10/15/1989 - 10/14/1990 CERVICAL FUSION 10/15/2000 - 10/14/2001 C5-6 ACDF (Kb) ENDOMETRIAL ABLATION W/ NOVASURE 10/15/2004 - 10/14/2005 PARATHYROID GLAND SURGERY 2005 & 2006 CERVICAL FUSION 10/15/2006 - 10/14/2007 C6-7 ACDF (Kb) VAGINAL HYSTERECTOMY 10/15/2010 - 10/14/2011 LAPAROSCOPIC CHOLECYSTECTOMY 10/15/2013 - 10/14/2014 ANTERIOR FUSION LUMBAR SPINE 10/15/2013 - 10/14/2014 L5-S1 DEDE (Kb) Medical History Medical History Date Comments Ulcer of anus and rectum Rectal ulcer - (Added by TW Conv) Parathyroid disorder (HCC) High cholesterol Hypertension Arthritis Acid reflux PONV (postoperative nausea and vomiting) Scopalamine patches for surgery Arrhythmia Family History Medical History Relation Name Comments Diabetes Father Heart disease Father Hypertension Father Stroke Father Heart disease Mother Lung cancer Mother Relation Name Status Comments Father Mother Social History Tobacco Use Types Packs/Day Years Used Date Smoking Tobacco: Former Cigarettes Q uit: 1988 Smokeless Tobacco: Former Tobacco Cessation:Counseling Given: Not Answered Alcohol Use Standard Drinks/Week Comments Not Currently 0 (1 standard drink = 0.6 oz pur e alcohol) PHQ-2 Answer Date Recorded PHQ-2 Score 1 06/07/2019 Comments Unknown Sex and Gender Information Value Date Recorded Sex Assigned at Not on file Legal Sex Female 2:46 AM [employer] Gender Identity Not on file Sexual Orientation Not on file Occupation Industry Job Start Date Job End Date [employer] Not on file Not on file Not on fi le Obstetrics History Last Filed Vital Signs Vital Sign Reading Time Taken Comments Blood Pressure 128/72 07/08/2024 11:33 AM CDT Pulse 52 07/08/2024 11:33 AM CDT Temperature 37.1 C (98.8 F) 05/30/2023 5:44 PM CDT Respiratory Rate 16 05/30/2023 5:44 PM CDT Oxygen Saturation 98% 07/08/2024 11: 33 AM CDT Inhaled Oxygen Concentration - - Weight 100.6 kg (221 lb 12.8 oz) 2023 11:33 AM CDT Height 167.6 cm (5' 6 ) 07/08/2024 11:3 3 AM CDT Body Mass Index 35.8 07/08/2024 11:33 AM CDT Plan of Treatment Health Maintenance Due Date Last Done Comments Breast Cancer Screening-Mammogram 1960 Fall Risk Assessment 1960 Hepatitis C Screening 1960 Osteoporosis Screening-Bone Density Scan 1960 Hepatitis B Screening 01/25/1976 Depression Screening 02/20/2020 02/19/2019 Well Visit 65+ 2023 Colon Cancer Screening-Colonoscopy 03/17/2026 03/17/2016 DTaP/Tdap/Td Vaccine (2 - Td or Tdap) 07/12/2029 07/12/2019 Colon Cancer Screening-CT Colonography Discontinued 03/17/2016 Colon Cancer Screening-DNA Stool Discontinued 03/17/20 16 Colon Cancer Screening-FIT Discontinued 03/17/2016 Colon Cancer Screening-Sigmoidoscopy Discontinued 03/17/2016 Zoster Vaccine Completed 08/29/2021, 06/22/2021 Pneumococcal vaccine 65+ Completed 07/25/2023 Covid-19 Vaccine Completed 08/10/2024, , 04/02/2022, Additional history exists Influenza Vaccine Completed 08/10/2024, , 06/26/2022, Additional history exists Procedures Procedure Name Priority Date/Time Associated Diagnosis Comments COLONOSCOPY REPORT 03/17/2016 from Last 3 Months or Most Recently Relevant to Health Maintenance Results * COLONOSCOPY REPORT (03/17/2016) Anatomical Region Laterality Modality Other Narrative 03/17/2016 Ordered by an unspecified provider. Historical Provider GI PROCEDURE ORDERABLES F inal Result from Last 3 Months or Most Recently Relevant to Health Maintenance Insurance MEDICARE [facility] CHOICE PLUS MEDICARE [facility] Care Teams Supervisor Vendor Quality Relationship Specialty Start Date End Date Geovanni Rodriguez DO [address] [facility] [address] [place] [address] PCP - General Internal Medicine 07/08/24 Erika Lopes OT Occupational Therapist Occupational Therapy 06/10/18 Celestino Parra MD Surgeon Vascular Surgery 02/19/19 Fan Edwards Referring Physician Gastroenterology 02/19/19
--- OUTSIDE RECORDS SUMMARY | 2024-11-24 17:18 | XMS_ITS | Referral Summary ---
Author Organization [facility] Address [address] [place] [address] Care Team Providers Care Phytopathology Teacher Name Role Phone Geovanni Rodriguez Primary Care Provider [phone] Source Comments [facility],non-owned Affiliates and Associated Physician Practices is amultiple site organization consisting of ambulatory clinics and hospital sitesin [place], [place], [place] and [place]. This disclosure is being madepursuant to the Care Everywhere program and may not contain all information available regarding this patient. Last updated 18.[facility] Encounters Date Type Department Care Team Description 11/21/2024 Telephone Transitional Care at [facility] [address] [place] [address] Nadia Love, sales clerk supervisor 11/14/2024 5:27 AM BLASTING CONTRACT MINER - 11/20/2024 6:39 PM BLASTING CONTRACT MINER Hospital Encounter [facility] [address] [place] [phone] Daryn North MD Surgery General [place]charge Disposition: [place] [facility] [place]/17/2024 7:05 AM BLASTING CONTRACT MINER - 11/17/2024 9:31 AM BLASTING CONTRACT MINER Surgery [facility] [address] [place] [phone] Daryn North MD IRRIGATION/DEBRIDEM ENT RIGHT KNEE WOUND, ANTIBIOTIC BEAD PLACEMENT, INCISIONAL PREVENA PLACEMENT, WOUND CLOSURE 11/17/2024 7:26 AM BLASTING CONTRACT MINER Anesthesia Event [facility] [address] [place] [address] Annie Carter MD Chase, Charles Eamon Iban Asst 11/14/2024 7:05 AM BLASTING CONTRACT MINER - 11/14/2024 8:50 AM BLASTING CONTRACT MINER Surgery [facility] [address] [place] [address] Daryn North MD Irrigation and debridement of right knee surgical site infection with wound vac placement 11/14/2024 7:23 AM BLASTING CONTRACT MINER Anesthesia Event [facility] [address] [place] [address] Kin Aden MD Keeven, Grace C, SUPERVISOR DITCHING-ANALYSIS MGR 11/12/2024 9:17 AM BLASTING CONTRACT MINER - 11/12/2024 11:59 PM BLASTING CONTRACT MINER Hospital Encounter [facility] DIAGNOSTIC RAD [facility] [address] [place] [address] Daryn North MD Discharge Disposition: Home or Self Care 11/12/2024 9:17 AM BLASTING CONTRACT MINER - 11/12/2024 11:59 PM BLASTING CONTRACT MINER Hospital Encounter [facility] DIAGNOSTIC RAD [facility] [address] [place] [address] Daryn North MD Discharge Disposition: Home or Self Care 11/12/2024 Orders Only [facility] - Orthopedics [address] [place] [phone] Daryn North MD Closed fracture of lateral portion of right tibial plateau, initial encounter ; Closed fracture of left wrist, initial encounter 11/12/2024 Travel 11/12/2024 9:00 AM BLASTING CONTRACT MINER Office Visit [facility] - Orthopedics [address] [place] [phone] Daryn North MD Pate, Katherine M, PA-C Closed fracture of lateral portion of right tibial plateau, initial encounter (Primary Dx); Surgical site infection; Closed nondisplaced fracture of styloid process of left radius, initial encounter 10/27/2024 Travel 10/27/2024 12:30 PM BLASTING CONTRACT MINER Office Visit [facility]ics [address] [place] [phone] Adeola Mendez MD Closed fracture of lateral portion of right tibial plateau, initial encounter (Primary Dx) 10/22/2024 11:17 AM BLASTING CONTRACT MINER - 10/22/2024 11:59 PM BLASTING CONTRACT MINER Hospital Encounter [facility] DIAGNOSTIC RAD [facility] [address] [place] [address] Daryn North MD Discharge Disposition: Home or Self Care 10/22/2024 Travel 10/22/2024 Orders Only [facility] - Orthopedics [address] [place] [phone] Daryn North MD Closed fracture of lateral portion of right tibial plateau, initial encounter 10/22/2024 12:30 PM BLASTING CONTRACT MINER Office Visit [facility] - Orthopedics [address] [place] [phone] Daryn North MD Closed bicondylar fracture of right tibial plateau (Primary Dx) 10/16/2024 Transitional Care [facility] - Care Coordination [address] [place] [address] Liza Steinberg, sales clerk supervisor 10/14/2024 Transitional Care [facility] - Care Coordination [address] [place] [address] Liza Steinberg, sales clerk supervisor 10/10/2024 5:43 AM BLASTING CONTRACT MINER - 10/13/2024 3:43 PM BLASTING CONTRACT MINER Hospital Encounter [facility] 5S ACUTE [address] [place] [address] Daryn North MD Surgery General Discharge Disposition: [place] [facility] [place] 10/10/2024 7:15 AM BLASTING CONTRACT MINER - 10/10/2024 10:45 AM BLASTING CONTRACT MINER Surgery [facility] [address] [place] [address] Daryn North MD Open reduction internal fixation of right bicondylar tibial plateau fracture, repair of lateral meniscus right, removal of external fixator right 10/10/2024 7:27 AM BLASTING CONTRACT MINER Anesthesia Event [facility] [address] [place] [phone] Joey Oneal MD Osterloh, Joan Frances, SUPERVISOR DITCHING-DIRECTOR CORPORATE SECURITY 10/06/2024 Telephone [facility] - Orthopedics [address] [place] [phone] Adeola Mendez MD Pre-op Clearance 10/02/2024 Travel 09/29/2024 Travel 09/29/2024 9:15 AM BLASTING CONTRACT MINER Office Visit [facility] - Orthopedics [address] [place] [phone] Adeola Mendez MD Adams, Karra N, SUPERVISOR DITCHING-ANALYSIS MGR Closed fracture of lateral portion of right tibial plateau, initial encounter (Primary Dx) 09/25/2024 Transitional Care [facility] - Care Coordination [address] [place] [address] Fiordaliza Neivlle RNsales clerk supervisor 09/24/2024 Transitional Care [facility] - Care Coordination [address] [place] [address] Fiordaliza Neville, sales clerk supervisor 09/24/2024 Transitional Care [facility] - Care Coordination [address] [place] [address] Haydee Curtis, sales clerk supervisor 09/18/2024 10:44 PM BLASTING CONTRACT MINER - 09/23/2024 9:47 PM BLASTING CONTRACT MINER Hospital Encounter [facility] AC[facility] [address] [place] [phone] Adeola Carreon MD Swan, Erin R, MD Orthopedics Discharge Disposition: [place] [facility] [place] 09/19/2024 4:12 PM BLASTING CONTRACT MINER Anesthesia Event [facility] [address] [place] [phone] Dorinda Stevens MD McDowell, Jacob A, Anes Asst 09/19/2024 3:50 PM BLASTING CONTRACT MINER - 09/19/2024 4:50 PM BLASTING CONTRACT MINER Surgery [facility] [address] [place] [address] Marifer Saeed MD RIGHT TIBIA CLOSED REDUCTION EXTERNAL FIXATION 09/18/2024 Travel from Last 3 Months Allergies Active Allergy Reactions Criticality Noted Date [...] day of test. 4000 mL 4 025 Discontinued(Li st Clean-Up) acetaminophen (Tylenol) 500 MG tablet [...] 8 hours for 11 days 66 g 5 025 Discontinued Active Problems Problem Noted Date Diagnosed Date Closed fracture of right tib ia and fibula, initial encounter 09/19/2024 Primary osteoarthritis of right ankle 06/13/2021 UMA positive 05/26/2021 Arthralgia of right ankle 03/15/2021 Fracture of lateral malleolu s of right fibula at syndesmosis Plantar fasciitis Immunizations Name Administration Dates Next Due Michelle Howarda primary monovalent 12+ yr 0.5mL ,12/15/2020 ZOSTER [...] Recorded Patient Health Questionnaire-2 Score 3 11/20/2024 [facility] - Occupational Stress Questionnaire Answer Date Recorded [...] any time in the past 12 m [facility], were you homeless or living in a [place] health care facility (including now)? No 11/15/2024 Sex and Gender Information Value Date Recorded Sex Assigned at Female 06/03/2023 3:57 PM CDT Gender Identity Female 06/03/2023 3:57 PM CDT Sexual Orientation Not on file Last Filed Vital Signs Vital Sign [place] Time Taken Comments Blood Pressure 142/80 11/20/2024 4:08 PM BLASTING CONTRACT MINER Pulse 68 11/20/2024 4:08 PM BLASTING CONTRACT MINER Temperature 36.7 C (98 F) 11/20/2024 4:08 PM BLASTING CONTRACT MINER Respiratory Rate 18 11/20/2024 4:08 PM BLASTING CONTRACT MINER Oxygen Saturation 98% 11/20/2024 4:08 PM BLASTING CONTRACT MINER Inhaled Oxygen Concentration 40% 10/10/2024 1 2:23 PM BLASTING CONTRACT MINER Weight 89.4 kg (197 lb) 11/14/2024 2:06 PM BLASTING CONTRACT MINER Height 167.6 cm (5' 6 ) 11/14/2024 2:06 PM BLASTING CONTRACT MINER Body Mass Index 31.8 11/14/2024 2:06 PM BLASTING CONTRACT MINER Functional Status Functional Status Response Date of Assess ment Is person deaf or have serious hearing difficult y? No 11/15/2024 Is person blind or have serious difficulty seein g? No 11/15/2024 Does person have serious dif ficulty walking/climbing stairs? No 11/15/2024 Does person have difficulty dressing/bathing? No 11/15/2024 Does person have difficulty doing errands alone? No 11/15/2024 Cognitive Status Response Date of Assessm ent Does person have difficulty concentrating/remembering/making decisions? No 11/15/2024 Plan of Treatment Upcoming Encounters Date Type Department Care Team (Late st Contact Info) Description 11/26/2024 8:00 AM BLASTING CONTRACT MINER Office Visit Transitional Care at [address] [address] 11/26/2024 10:30 AM BLASTING CONTRACT MINER Office Visit [facility] - Orthopedics [address] [place] [phone] Daryn North MD [address] [place] [address] [place] [address] 12/25/2024 10:00 AM CDT Office Visit [facility] - Infectious Disease [address] [place] [phone] Missy Vogel PA-C [address] [place] [address] 01/15/2025 10:00 AM CDT Office Visit [facility] GI [address] [place] [phone] Goals Goal Patient Goal Type Associated Problems Recent Progress Patient-Stated? Author Mobility General On track( 025 10:37 AM BLASTING CONTRACT MINER) Ayaka Siegel RN Note: Expected end date: 10/14/21 The goal is to maintain or improve your mobility at the optimum level for you. Interventions: Medical Devices Implanted Type Area Roofer Metal Device Identifier Shelf Expiration Date Model / Serial / Lot Screw 3.5mm 50mm 2.5mm Slf-Tap Sm Hex Implanted:Qty : 1 on 03/15/2021 by Sukumar Magaña, DO at [facility] Right: [employer] [id number] / / Screw 3.5mm 55mm 2.5mm Slf-Tap Sm Hex Implanted:Qty : 1 on 03/15/2021 by Sukumar Magaña, DO at [facility] Right: [employer] [id number] / / Plate 2 Hl 2 Comp Colr 25mm 1/3 Tblr Implanted:Qty : 1 on 03/15/2021 by Sukumar Magaña DO at [facility] Right: [employer] [id number] / / Sub Bngf 4.8mm Ostst Ca Slf Pelt Implanted:Qty : 1 on 03/15/2021 by Sukumar Magaña, DO at [facility] [employer] [id number] / / [id number] Screw 4.7mm 5.6mm 36mm 2.5mm Ft Va Lopro Implanted:Qty : 2 on 10/10/2024 by Daryn North MD at [facility] Right: Tibia [employer] 11/26/2033 [id number] / / [id number] Screw 4.7mm 5.6mm 28mm 2.5mm Ft Va Lopro Implanted:Qty : 1 on 10/10/2024 by Daryn North MD at [facility] Right: [employer]ia [employer] 03/12/2032 [id number] / / [id number] Screw 4.7mm 5.6mm 32mm 2.5mm Ft Va Lopro Implanted:Qty : 1 on 10/10/2024 by Daryn North MD at [facility] Right: [employer] [id number] 10/19/2030 [id number] / / [id number] Agent Hmst Thrmb Kt Surgiflo 2ml Implanted:Qty : 2 on 10/10/2024 by Daryn North MD at [facility] Right: Tibia [employer] [id number] / / Screw 3.5mm 26mm Slf-Tap Cortx Evos Strl Implanted:Qty : 1 on 10/10/2024 by Daryn North MD at [facility] Right: [employer] [id number] / / Screw 3.5mm 32mm Slf-Tap Cortx Evos Strl Implanted:Qty : 1 on 10/10/2024 by Daryn North MD at [facility] Right: [employer] [id number] / / Screw 3.5mm 34mm Slf-Tap Cortx Evos Strl Implanted:Qty : 1 on 10/10/2024 by Daryn North MD at [facility] Right: [employer] [id number] / / Screw 3.5mm 15mm Slf-Tap Lck Evos Strl Implanted:Qty : 1 on 10/10/2024 by Daryn North MD at [facility] Right: [employer] [id number] / / Plate 9 Hl Va Lck Fib Lt Dist 125mm Implanted:Qty : 1 on 10/10/2024 by Daryn North MD at [facility] Right: [employer] [id number] / / Screw 3.5mm 32mm Ft Slf-Tap Hex Lopro Implanted:Qty : 1 on 10/10/2024 by Daryn North MD at [facility] Right: [employer] [id number] / / Screw 3.5mm 60mm T15 Lck Slf-Tap Tip Tpr Implanted:Qty : 1 on 10/10/2024 by Daryn North MD at [facility] Right: [employer] [id number] / / Screw 3.5mm 65mm T15 Lck Slf-Tap Tip Tpr Implanted:Qty : 3 on 10/10/2024 by Daryn North MD at [facility] Right: [employer] [id number] / / Screw 3.5mm 70mm T15 Lck Slf-Tap Tip Tpr Implanted:Qty : 1 on 10/10/2024 by Daryn North MD at [facility] Right: [employer] [id number] / / Plate 9 Hl Lck Lopro Dist Blt Tip Tib Rt Implanted:Qty : 1 on 10/10/2024 by Daryn North MD at [facility] Right: [employer] [id number] / / Screw 3.5mm 75mm T15 Lck Slf-Tap Tip Tpr Implanted:Qty : 2 on 10/10/2024 by Daryn North MD at [facility] Right: [employer] [id number] / / Screw 3.5mm 40mm Ft Slf-Tap Hex Lopro Implanted:Qty : 1 on 10/10/2024 by Daryn North MD at [facility] Right: [employer] [id number] / / Screw 3.5mm 20mm T15 Slf-Tap Lck Tpr Implanted:Qty : 1 on 10/10/2024 by Daryn North MD at [facility] Right: [employer] [id number] / / Cmnt Bone Smpx Ptbr Fd Radopq Prebl Implanted:Qty : 1 on 11/17/2024 by Daryn North MD at [facility] Right: Knee [employer] 01/12/2026 [id number] / / [id number] Bone Void 10cc 20cc Ca Slf Stimulan Implanted:Qty : 1 on 11/17/2024 by Daryn North MD at [facility] Right: Knee [employer] 07/14/2027 620-010 / / [id number] Explanted Type Area Roofer Metal Device Identifier Shelf Expiration Date Model / Serial / Lot Wire K 2mm 150mm 1 End Troc Pnt [facility] Explanted:Qty: 1 on 03/15/2021 by Sukumar Magaña DO at [facility] Right: [employer] [id number] / / Screw 3.5mm 60mm 2.5mm Slf-Tap Sm Hex Explanted:Qty: 1 on 03/15/2021 by Sukumar Magaña DO at [facility] Right: [employer] [id number] / / Cplng Extfix Hfmn 3 Nikhil To Nikhil Salomón Explanted:Qty: 4 on 09/19/2024 by Marifer Saeed MD at [facility] Right: Tibia [employer] [id number] / / Screw 3.5mm 38mm Slf-Tap Cortx Evos Strl Explanted:Qty: 1 on 10/10/2024 by Daryn North MD at [facility] Right: [employer] [id number] / / Screw 3.5mm 42mm Slf-Tap Cortx Evos Strl Explanted:Qty: 1 on 10/10/2024 by Daryn North MD at [facility] Right: [employer] [id number] / / Wire K 1.6mm 150mm Troc Pnt Ss Fx Strl Explanted:Qty: 1 on 10/10/2024 by Daryn North MD at [facility] Right: [employer] [id number] / / Plate 11 Hl Va Lck Lopro Fib Lt Dist Lat Explanted:Qty: 1 on 10/10/2024 by Daryn North MD at [facility] Right: [employer] [id number] / / Wire K 1.6mm 6in Hlf Bynt Pnt Ss Fx Explanted:Qty: 3 on 10/10/2024 by Daryn North MD at [facility] Right: [employer] [id number] / / Pin Hlf 180mm 5mm Apx Hfmn2 Canc Ss Implanted:Qty: 2 on 09/19/2024 by Marifer Saeed MD at [facility] Explanted:Qty: 2 on 10/10/2024 by Daryn North MD at [facility] Right: [employer]ia [employer] [id number] / / Pin Hlf 200mm 5mm Apx Hfmn2 Orth Ss Thrd Implanted:Qty: 2 on 09/19/2024 by Marifer Saeed MD at [facility] Explanted:Qty: 2 on 10/10/2024 by Daryn North MD at [facility] Right: [employer] [id number] / / Procedures Procedure Name Priority Date/Time Associated Diagnosis Comments GLUCOSE - POINT OF CARE Routine 11/20/2024 1:30 PM BLASTING CONTRACT MINER GLUCOSE - POINT OF CARE Routine 11/20/2024 8:10 AM BLASTING CONTRACT MINER BASIC METABOLIC PANEL (CALCIUM TOTAL) AM Draw 11/20/2024 12:49 AM BLASTING CONTRACT MINER HEPATITIS C AB SCREEN RFLX NAAT QUANT Routine 11/20/2024 12:48 AM BLASTING CONTRACT MINER HIV-1 HIV-2 ANTIBODY + HIV P24 AG PANEL Routine 11/20/2024 12:48 AM BLASTING CONTRACT MINER HEPATITIS SCREEN ACUTE AM Draw 11/20/2024 12:48 AM BLASTING CONTRACT MINER CBC W/O DIFFERENTIAL AM Draw 11/20/2024 12:48 AM BLASTING CONTRACT MINER GLUCOSE - POINT OF CARE Routine 11/19/2024 9:06 PM BLASTING CONTRACT MINER GLUCOSE - POINT OF CARE Routine 11/19/2024 5:26 PM BLASTING CONTRACT MINER HEMOGLOBIN Timed 11/19/2024 3:37 PM BLASTING CONTRACT MINER GLUCOSE - POINT OF CARE Routine 11/19/2024 1:18 PM BLASTING CONTRACT MINER TRANSFUSE RED BLOOD CELL LEUKOREDUCED UNIT(S) Routine 11/19/2024 9:30 AM BLASTING CONTRACT MINER PREPARE RBC LEUKOREDUCED UNIT Routine 11/19/2024 9:14 AM BLASTING CONTRACT MINER GLUCOSE - POINT OF CARE Routine 11/19/2024 8:22 AM BLASTING CONTRACT MINER TYPE + SCREEN PANEL STAT 11/19/2024 6 :24 AM BLASTING CONTRACT MINER HEPATIC FUNCTION PANEL AM Draw 11/19/2024 12:15 AM BLASTING CONTRACT MINER CBC W/O DIFFERENTIAL AM Draw 11/19/2024 12:15 AM BLASTING CONTRACT MINER BASIC METABOLIC PANEL (CALCIUM TOTAL) AM Draw 11/19/2024 12:15 AM BLASTING CONTRACT MINER GLUCOSE - POINT OF CARE Routine 11/18/2024 7:54 PM BLASTING CONTRACT MINER GLUCOSE - POINT OF CARE Routine 11/18/2024 5:44 PM BLASTING CONTRACT MINER GLUCOSE - POINT OF CARE Routine 11/18/2024 12:35 PM BLASTING CONTRACT MINER EKG 12-LEAD Routine 11/18/2024 11:30 AM BLASTING CONTRACT MINER Closed fracture of right tibia and fibula, initial encounter GLUCOSE - POINT OF CARE Routine 11/18/2024 8:30 AM BLASTING CONTRACT MINER CBC W/O DIFFERENTIAL AM Draw 11/18/2024 12:20 AM BLASTING CONTRACT MINER BASIC METABOLIC PANEL (CALCIUM TOTAL) AM Draw 11/18/2024 12:20 AM BLASTING CONTRACT MINER GLUCOSE - POINT OF CARE Routine 11/17/2024 9:12 PM BLASTING CONTRACT MINER GLUCOSE - POINT OF CARE Routine 11/17/2024 5:19 PM BLASTING CONTRACT MINER VAS BILATERAL VENOUS DUPLEX LE Routine 11/17/2024 12:30 PM BLASTING CONTRACT MINER Closed fracture of right tibia and fibula, initial encounter GLUCOSE - POINT OF CARE Routine 11/17/2024 11:45 AM BLASTING CONTRACT MINER CULTURE ANAEROBE STAT 11/17/2024 8:38 AM BLASTING CONTRACT MINER CULTURE WOUND+GRAM STAIN STAT 11/17/2024 8:38 AM BLASTING CONTRACT MINER CULTURE ANAEROBE STAT 11/17/2024 8:36 AM BLASTING CONTRACT MINER CULTURE WOUND+GRAM STAIN STAT 11/17/2024 8:36 AM BLASTING CONTRACT MINER ENDOTRACHEAL TUBE NOTE Routine 11/17/2024 7:55 AM BLASTING CONTRACT MINER MN EXPLORE WOUND,EXTREMITY 11/17/2024 7:07 AM BLASTING CONTRACT MINER Injury of right knee, initial encounter CBC W/O DIFFERENTIAL AM Draw 11/17/2024 12:44 AM BLASTING CONTRACT MINER BASIC METABOLIC PANEL (CALCIUM TOTAL) AM Draw 11/17/2024 12:44 AM BLASTING CONTRACT MINER GLUCOSE - POINT OF CARE Routine 11/16/2024 7:59 PM BLASTING CONTRACT MINER GLUCOSE - POINT OF CARE Routine 11/16/2024 6:01 PM BLASTING CONTRACT MINER URINALYSIS REFLEX TO MICROSCOPIC NO CULTURE Routine 11/16/2024 1:08 PM BLASTING CONTRACT MINER PROTEIN URINE RANDOM QUANTITATIVE Routine 11/16/2024 1:08 PM BLASTING CONTRACT MINER UREA NITROGEN URINE RANDOM Routine 11/16/2024 1:08 PM BLASTING CONTRACT MINER CREATININE URINE RANDOM Routine 11/16/2024 1:08 PM BLASTING CONTRACT MINER SODIUM URINE RANDOM Routine 11/16/2024 1 :08 PM BLASTING CONTRACT MINER GLUCOSE - POINT OF CARE Routine 11/16/2024 11:33 AM BLASTING CONTRACT MINER GLUCOSE - POINT OF CARE Routine 11/16/2024 8:17 AM BLASTING CONTRACT MINER CBC W/O DIFFERENTIAL AM Draw 11/16/2024 12:21 AM BLASTING CONTRACT MINER BASIC METABOLIC PANEL (CALCIUM TOTAL) AM Draw 11/16/2024 12:21 AM BLASTING CONTRACT MINER GLUCOSE - POINT OF CARE Routine 11/15/2024 8:18 PM BLASTING CONTRACT MINER GLUCOSE - POINT OF CARE Routine 11/15/2024 6:00 PM BLASTING CONTRACT MINER GLUCOSE - POINT OF CARE Routine 11/15/2024 1:13 PM BLASTING CONTRACT MINER GLUCOSE - POINT OF CARE Routine 11/15/2024 9:10 AM BLASTING CONTRACT MINER VITAMIN D 25-HYDROXY AM Draw 11/15/2024 12:56 AM BLASTING CONTRACT MINER FERRITIN Routine 11/15/2024 12:56 AM BLASTING CONTRACT MINER IRON + TRANSFERRIN PANEL Routine 11/15/2024 12:56 AM BLASTING CONTRACT MINER VITAMIN B12 AM Draw 11/15/2024 12:56 AM BLASTING CONTRACT MINER FOLATE Routine 11/15/2024 12:56 AM BLASTING CONTRACT MINER CBC W/O DIFFERENTIAL AM Draw 11/15/2024 12:56 AM BLASTING CONTRACT MINER BASIC METABOLIC PANEL (CALCIUM TOTAL) AM Draw 11/15/2024 12:56 AM BLASTING CONTRACT MINER GLUCOSE - POINT OF CARE Routine 11/14/2024 10:25 PM BLASTING CONTRACT MINER GLUCOSE - POINT OF CARE Routine 11/14/2024 5:53 PM BLASTING CONTRACT MINER COMPREHENSIVE METABOLIC PANEL Routine 11/14/2024 4:18 PM BLASTING CONTRACT MINER HEMOGLOBIN A1C Routine 11/14/2024 4:18 PM BLASTING CONTRACT MINER PT EVAL AND TREAT ORTHO/TRAUMA Routine 11/14/2024 9:08 AM BLASTING CONTRACT MINER OT EVAL AND TREAT ORTHO/TRAUMA Routine 11/14/2024 9:08 AM BLASTING CONTRACT MINER CULTURE ANAEROBE STAT 11/14/2024 8:21 AM BLASTING CONTRACT MINER CULTURE WOUND+GRAM STAIN STAT 11/14/2024 8:21 AM BLASTING CONTRACT MINER CULTURE ANAEROBE STAT 11/14/2024 8:10 AM BLASTING CONTRACT MINER CULTURE WOUND+GRAM STAIN STAT 11/14/2024 8:10 AM BLASTING CONTRACT MINER CULTURE ANAEROBE STAT 11/14/2024 8:10 AM BLASTING CONTRACT MINER CULTURE WOUND+GRAM STAIN STAT 11/14/2024 8:10 AM BLASTING CONTRACT MINER ENDOTRACHEAL TUBE NOTE Routine 11/14/2024 7:57 AM BLASTING CONTRACT MINER MN RENE SUBQ TISSUE 20 SQ CM/< 11/14/2024 6:58 AM BLASTING CONTRACT MINER Surgical site infection Special Needs Supine C-ARM CBC W AUTO DIFFERENTIAL STAT 11/14/2024 6:47 AM BLASTING CONTRACT MINER Arthralgia of right ankle TYPE + SCREEN PANEL Routine 11/14/2024 6 :17 AM BLASTING CONTRACT MINER XR WRIST LEFT 3VW OR MORE Routine 11/12/2024 9:24 AM BLASTING CONTRACT MINER Closed fracture of left wrist, initial encounter XR TIBIA FIBULA RIGHT 2VW Routine 11/12/2024 9:22 AM BLASTING CONTRACT MINER Closed fracture of lateral portion of right tibial plateau, initial encounter XR TIBIA FIBULA RIGHT 2VW Routine 10/22/2024 11:26 AM BLASTING CONTRACT MINER Closed fracture of lateral portion of right tibial plateau, initial encounter CBC W/O DIFFERENTIAL AM Draw 10/13/2024 1:55 AM BLASTING CONTRACT MINER Closed fracture of right tibia and fibula, initial encounter BASIC METABOLIC PANEL (CALCIUM TOTAL) AM Draw 10/13/2024 1:55 AM BLASTING CONTRACT MINER Closed fracture of right tibia and fibula, initial encounter CBC W/O DIFFERENTIAL AM Draw 10/12/2024 1:03 PM BLASTING CONTRACT MINER Closed fracture of right tibia and fibula, initial encounter BASIC METABOLIC PANEL (CALCIUM TOTAL) AM Draw 10/12/2024 4:18 AM BLASTING CONTRACT MINER Closed fracture of right tibia and fibula, initial encounter CBC W/O DIFFERENTIAL AM Draw 10/11/2024 2:13 AM BLASTING CONTRACT MINER Closed fracture of right tibia and fibula, initial encounter BASIC METABOLIC PANEL (CALCIUM TOTAL) AM Draw 10/11/2024 2:13 AM BLASTING CONTRACT MINER Closed fracture of right tibia and fibula, initial encounter XR TIBIA FIBULA RIGHT 2VW STAT 10/10/2024 1:17 PM BLASTING CONTRACT MINER Closed fracture of right tibia and fibula, initial encounter [place] [facility] STAT 10/10/2024 11:01 AM BLASTING CONTRACT MINER Closed fracture of right tibia and fibula, initial encounter PERIPHERAL IV NOTE Routine 10/10/2024 8: 22 AM BLASTING CONTRACT MINER ENDOTRACHEAL TUBE NOTE Routine 10/10/2024 8:22 AM BLASTING CONTRACT MINER [place] OPEN RX BILAT TIB PLAT FX 10/10/2024 7:15 AM BLASTING CONTRACT [employer]ER Closed fracture of lateral portion of right tibial plateau, initial encounter Special Needs Supine C-Arm TYPE + SCREEN PANEL Routine 10/10/2024 6 :24 AM BLASTING CONTRACT [employer]ER CBC W/O DIFFERENTIAL AM Draw 09/23/2024 6:31 AM BLASTING [employer]ER Closed fracture of right tibia and fibula, initial encounter BASIC METABOLIC PANEL (CALCIUM TOTAL) AM Draw 09/23/2024 6:31 AM BLASTING [employer] Closed fracture of right tibia and fibula, initial encounter CBC W/O DIFFERENTIAL AM Draw 09/22/2024 7:15 AM BLASTING [employer]ER Closed fracture of right tibia and fibula, initial encounter BASIC METABOLIC PANEL (CALCIUM TOTAL) AM Draw 09/22/2024 7:15 AM BLASTING [employer]ER Closed fracture of right tibia and fibula, initial encounter XR KNEE RIGHT 2VW OR LESS Routine 09/21/2024 11:00 AM BLASTING [employer] Closed fracture of right tibia and fibula, initial encounter CBC W/O DIFFERENTIAL AM Draw 09/21/2024 5:54 AM BLASTING [employer]ER Closed fracture of right tibia and fibula, initial encounter BASIC METABOLIC PANEL (CALCIUM TOTAL) AM Draw 09/21/2024 5:54 AM BLASTING [employer] Closed fracture of right tibia and fibula, initial encounter CBC W/O DIFFERENTIAL AM Draw 09/20/2024 3:42 AM BLASTING [employer]ER Closed fracture of right tibia and fibula, initial encounter BASIC METABOLIC PANEL (CALCIUM TOTAL) AM Draw 09/20/2024 3:42 AM BLASTING [employer]ER Closed fracture of right tibia and fibula, initial encounter [place] BENJAMIN SURGERY STAT 09/19/2024 5:18 PM BLASTING [employer]ER Closed fracture of right tibia and fibula, initial encounter PERIPHERAL IV NOTE Routine 09/19/2024 4: 47 PM BLASTING [employer]ER ENDOTRACHEAL TUBE NOTE Routine 09/19/2024 4:46 PM BLASTING CONTRACT MINER [place] CLOSED RX TIBIA SHAFT FX 09/19/2024 4:16 PM BLASTING [employer]ER Closed fracture of right tibial plateau, initial encounter VITAMIN D 25-HYDROXY Routine 09/19/2024 3:12 AM BLASTING [employer]ER Closed fracture of right tibia and fibula, initial encounter Disorder of bone CBC W/O DIFFERENTIAL STAT 09/19/2024 3:12 AM BLASTING [employer]ER Closed fracture of right tibia and fibula, initial encounter COMPREHENSIVE METABOLIC PANEL STAT 09/19/2024 3:12 AM BLASTING CONTRACT [employer]ER PT EVAL AND TREAT ORTHO/TRAUMA Routine 09/19/2024 1:52 AM BLASTING CONTRACT [employer]ER OT EVAL AND TREAT ORTHO/TRAUMA Routine 09/19/2024 1:[address] TIBIA FIBULA RIGHT WO CONT STAT 09/19/2024 1:14 AM BLASTING CONTRACT MINER Right leg pain CT KNEE RIGHT WO CONTRAST STAT 09/19/2024 1:14 AM BLASTING CONTRACT [employer]ER Right leg pain XR FOOT RIGHT 3VW OR MORE STAT 09/19/2024 12:45 AM BLASTING CONTRACT [employer]ER Right leg pain TYPE + SCREEN PANEL STAT 09/18/2024 1 1:24 PM BLASTING CONTRACT [employer]ER CBC W AUTO DIFFERENTIAL STAT 09/18/2024 11:24 PM BLASTING CONTRACT [employer]ER XR KNEE RIGHT 2VW OR LESS STAT 09/18/2024 11:08 PM BLASTING CONTRACT [employer]ER Right leg pain XR TIBIA FIBULA RIGHT 2VW STAT 09/18/2024 11:08 PM BLASTING CONTRACT [employer]ER Right leg pain ENDOSCOPY, COLON, SCREENING Routine 05/30/2024 9:42 AM CDT from Last 3 Months or Most Recently Relevant to Health Maintenance Results * GLUCOSE - POINT OF CARE (11/20/2024 1:30 PM BLASTING CONTRACT [employer]ER) Only the most recent of23 resultswithin the time period is included. Glucose WB/POC 95 70 - 99 mg/dL 11/20/2024 4:55 PM BLASTING [employer]ER [facility] Specimen Type Cap Fingerstick 2024 4:55 PM BLASTING CONTRACT [employer]ER [facility] Blood BLOOD SPECIMEN / Unknown 11/20/2024 1:30 PM BLASTING [employer]ER 11/20/2024 4:55 PM BLASTING CONTRACT [employer]ER Drayn North MD LAB - POINT OF CARE ORDERABLES [facility] [address] [place] [address], [facility] [phone] * (ABNORMAL) BASIC METABOLIC PANEL (CALCIUM TOTAL) (11/20/2024 12:49 AM BLASTING CONTRACT [employer]ER) Only the most recent of13 resultswithin the time period is included. BUN 26 7 - 26 mg/dL 11/20/2024 1:59 [address] [facility] Creatinine 0.98(H) 0.56 - 0.96 mg/dL 11/20/2024 1:59 AM [facility] Sodium 143 136 - 145 mmol/L 11/20/2024 1:59 AM [facility] Potassium 3.8 3.5 - 4.5 mmol/L 11/20/2024 1:59 AM [facility] Chloride 113(H) 98 - 107 mmol/L 11/20/2024 1:59 AM [facility] CO2 22 22 - 29 mmol/L 11/20/2024 1:59 AM [facility] Glucose 95 70 - 99 mg/dL 11/20/2024 1:59 AM [facility] Calcium 8.9 8.4 - 10.2 mg/dL 11/20/2024 1:59 AM [facility] Anion Gap 8 6 - 16 11/20/2024 1:59 AM [facility] BUN/Creatinine Ratio 27(H) 7 - 23 11/20/2024 1:59 AM [facility] Osmolality Calculated 301(H) 275 - 295 mOsm/kg 11/20/2024 1:59 AM [facility] eGFR by CKD-EPI 64(L) >=90 mL/min/1.7 3 m2 11/20/2024 1:59 AM [facility] Blood BLOOD SPECIMEN / Unknown Lab Venipuncture / Unknown 11/20/2024 12:49 AM BLASTING [employer]ER 11/20/2024 1:28 AM BLASTING [employer]ER Daryn North MD LAB - CHEMISTRY KONG JENSEN [facility] Organization Address City/State/ZIP Co de Phone Number [address] [address], [facility] [phone] * HEPATITIS C AB SCREEN RFLX NAAT QUANT (11/20/2024 12:48 AM BLASTING CONTRACT MINER) Pathologist [facility] Hepatitis C Antibody Non-react juju Non-reac tive 11/20/2024 2:21 AM BLASTING CONTRACT [employer]ER [facility] Comment: Hepatitis C Antibody screen indicates [...] Lab Venipuncture / Unknown 11/20/2024 12:48 AM BLASTING [employer]ER 11/20/2024 1:18 AM BLASTING CONTRACT [employer]ER Cathie Reyes MD LAB - CHEMISTRY KONG JENSEN Performing Organization Address City/[facility]/ZIP Co de Phone Number [address] [address], [facility] [phone] * HIV-1 HIV-2 ANTIBODY + HIV P24 AG PANEL (11/20/2024 12:48 AM BLASTING CONTRACT MINER) Pathologist [facility] HIV Antigen/Antibod y 1 & 2 Non-reacti ve Non-react juju 11/20/2024 2:21 AM BLASTING CONTRACT [employer]ER [facility] Comment:No Laboratory eviden ce of HIV infection. Blood BLOOD SPECIMEN / Unknown Lab Venipuncture / Unknown 11/20/2024 12:48 AM BLASTING [employer]ER 11/20/2024 1:18 AM BLASTING [employer]ER Cathie Reyes MD LAB - CHEMISTRY KONG JENSEN Performing Organization Address City/[facility]/ZIP Co de Phone Number [address] [address], [place] [phone] * (ABNORMAL) CBC W/O DIFFERENTIAL (11/20/2024 12:48 AM BLASTING CONTRACT [employer]ER) Only the most recent of14 resultswithin the time period is included. WBC 7.7 4.0 - 10.7 x10E9/L 11/20/2024 1:35 [address] [facility] RBC Count 2.88(L) 3.90 - 5.20 x10E12/L 11/20/2024 1:35 AM [facility] Hemoglobin 8.0(L) 11.9 - 15.8 g/dL 11/20/2024 1:35 AM [facility] Hematocrit 24.5(L) 34.8 - 46.1 % 11/20/2024 1:35 AM [facility] MCV 85.1 80.0 - 98.0 fL 11/20/2024 1:35 AM [facility] MCH 27.8 26.7 - 33.6 pg 11/20/2024 1:35 AM [facility] MCHC 32.7 31.7 - 36.3 g/dL 11/20/2024 1:35 AM [facility] RDW-CV 15.9(H) 11.3 - 14.8 % 11/20/2024 1:35 AM [facility] Platelet Count 269 150 - 420 x10E9/L 11/20/2024 1:35 AM [facility] MPV 11.4 7.8 - 11.4 fL 11/20/2024 1:35 AM [facility] NRBC 0.3(H) <=0.0 /100 WBC 11/20/2024 1:35 AM [facility] Blood BLOOD SPECIMEN / Unknown Lab Venipuncture / Unknown 11/20/2024 12:48 AM BLASTING [employer]ER 11/20/2024 1:18 AM [facility] Daryn North MD LAB - HEMATOLOGY ORD ERABLES [facility] [address] [place] [phone] [phone] * HEPATITIS SCREEN ACUTE (11/20/2024 12:48 AM BLASTING CONTRACT [employer]ER) Hepatitis A Virus Antibody IgM Non-react juju Non-reac tive 11/20/2024 2:21 AM [facility] Hepatitis B Virus Surface Antigen Non-react juju Non-reac tive 11/20/2024 2:21 AM [facility] Hepatitis B Core Virus Antibody IgM Non-react juju Non-reac tive 11/20/2024 2:21 AM BLASTING [employer]ER [facility] Hepatitis C Antibody Non-react juju Non-reac tive 11/20/2024 2:21 AM BLASTING CONTRACT [employer]ER [facility] Comment:Hepatitis C Antibody screen indicates no serologic evidence of past or current infection with Hepatitis C Virus. Patients with unexplained liver disease who are immunocompromised or suspected of having acute Hepatitis C infection may benefit from Nucleic Acid Test (KATIUSKA) for Hepatitis C Viral RNA to confirm Hepatitis C status. Blood BLOOD SPECIMEN / Unknown Lab Venipuncture / Unknown 11/20/2024 12:48 AM BLASTING CONTRACT [employer]ER 11/20/2024 1:18 AM BLASTING CONTRACT [employer]ER Cathie Reyes MD LAB - CHEMISTRY KONG JENSEN Performing Organization Address City/[facility]/ZIP Co de Phone Number [address] [address], [facility] [phone] * (ABNORMAL) HEMOGLOBIN (11/19/2024 3:37 PM BLASTING CONTRACT MINER) [facility] Hemoglobin 9.3(L) 11.9 - 15.8 g/dL 11/19/2024 4:07 PM BLASTING CONTRACT [employer]ER [facility] Blood BLOOD SPECIMEN / Unknown Lab Venipuncture / Unknown 11/19/2024 3:37 PM BLASTING [employer]ER 11/19/2024 3:44 PM BLASTING [employer]ER Missy Melgar PA-C LAB - HEMATO LOGY ORDERABLES Performing Organization Address City/[facility]/ZIP Co de Phone Number [address] [address], [facility] [phone] * PREPARE (CROSSMATCH) RBC UNIT(S), 1 Units (11/19/2024 9:14 AM BLASTING CONTRACT MINER) [facility] Unit Description AS1 LR PRBC IRR [facility] Unit ABO O [facility] Unit Rh NEG [facility] Product Number R04 [facility] Unit Donor # [id number] [facility] Unit Status transfused [facility] Product Code [id number] [facility] Blood Type Barcode 9500 [facility] Expiration Date [id number] S BLOOD BANK LAB Blood Bank BLOOD SPECIMEN / Unknown 11/19/2024 6:33 AM BLASTING [employer]ER Daryn North MD LAB - BLOOD BANK ORD ERABLES Performing Organization Address City/[facility]/ZIP Co de Phone Number [facility] [address] [place] [address], [facility] [phone] * TYPE + SCREEN PANEL (11/19/2024 6:24 AM BLASTING CONTRACT MINER) Only the most recent of4 resultswithin the time period is included. Antibody Screen NEG 7:12 AM [facility] ABO Rh O POS 11/19/2024 7:12 AM [facility] Blood Bank BLOOD SPECIMEN / Unknown Venipuncture / Unknown 11/19/2024 6:24 AM BLASTING [employer]ER 11/19/2024 6:33 AM BLASTING [employer]ER Daryn North MD LAB - BLOOD BANK ORD ERABLES Performing Organization Address City/[facility]/ZIP Co de Phone Number [facility] [address] [place] [phone], [facility] [phone] * (ABNORMAL) HEPATIC FUNCTION PANEL (11/19/2024 12:15 AM BLASTING CONTRACT [employer]ER) Protein Total 5.2(L) 6.0 - 8.3 g/dL 025 1:22 AM [facility] Albumin 2.1(L) 3.4 - 5.0 g/dL 11/19/2024 1:[address] [facility] Bilirubin Total 0.2 0.2 - 1.2 mg/dL 02/2025 1:22 AM [facility] Bilirubin Conjugated 0.1 0.1 - 0.5 mg/dL 11/19/2024 1:22 AM [facility] Bilirubin Unconjugated 0.1 Unconjugated Bilirubin is a calculated value: Reference ranges have not been established. mg/dL 11/19/2024 1:22 AM [facility] Alkaline Phosphatase 279(H) 40 - 150 U/L 11/19/2024 1:22 AM [facility] ALT 79(H) 5 - 55 U/L 11/19/2024 1:22 AM [facility] AST 71(H) 5 - 34 U/L 11/19/2024 1:22 AM [facility] Albumin/Globulin Ratio 0.7(L) 1.1 - 2.3 11/19/2024 1:22 AM [facility] Blood BLOOD SPECIMEN / Unknown Lab Venipuncture / Unknown 11/19/2024 12:15 AM BLASTING [employer]ER 11/19/2024 12:50 AM BLASTING [employer]ER Daryn North MD LAB - CHEMISTRY ORDDrew JENSEN Performing Organization Address [facility] Co de Phone Number [facility] [address] [place] [address], [facility] [phone] * EKG 12-LEAD (11/18/2024 11:30 AM BLASTING CONTRACT [employer]ER) Ventricular Rate 79 BPM SL MUSE Atrial Rate 79 BPM [facility] MUSE P-R Interval 150 ms [facility] MUSE QRS Duration ms 100 ms [facility] MUSE Q-T Interval ms 406 ms [facility] MUSE QTC Calculation (Bezet) 465 ms [facility] MUSE Calculated P Felicity 26 degrees SL MUSE Calculated R Felicity 9 degrees [facility] MUSE Calculated T Felicity 26 degrees [facility] MUSE Interpretation EKG NORMAL SINUS RHYTHM NORMAL ECG NO PREVIOUS ECGS AVAILABLE Confirmed by FRANC RODRIGUEZ MD ([id number]) on 11/22/2024 11:50:41 PM [facility] MUSE 11/18/2024 11:3 0 AM BLASTING [employer]ER 11/22/2024 11:50 PM BLASTING [employer]ER Daryn North MD ECG ORDERABLES Performing Organization Address [facility]/ZIP Co de Phone Number [facility] MUSE * VAS Bilateral Venous Duplex Le (11/17/2024 12:30 PM BLASTING [employer]ER) Anatomical Region Laterality Modality Lower Extremity Ultrasound 11/17/2024 12:1 3 PM BLASTING [employer]ER Narrative Procedure Note Segundo Clement MD - 11/17/2024 Daryn North MD VASCULAR LAB ORDERAB LES * (ABNORMAL) CULTURE WOUND+GRAM STAIN (11/17/2024 8:38 AM BLASTING CONTRACT MINER) Only the most recent of5 resultswithin the time period is included. Culture Light Enterobacter cloacae complex(A) JERILYN 11/19/2024 1:56 PM BLASTING CONTRACT MINER [facility] MICROBIOLOGY Gram Stain Heavy Red blood cells 11/19/2024 1:56 PM BLASTING [employer]ER [facility] Gram Stain Rare Polymorphonuclear cells 11/19/2024 1:56 PM BLASTING [employer]ER [facility] Gram Stain No organisms seen 025 1:56 PM BLASTING CONTRACT MINER [facility] MICRO[facility] Microbiology ENTIRE KNEE REGION / Unknown Collection / Unknown 11/17/2024 8:38 AM BLASTING CONTRACT [employer]ER 11/17/2024 8:46 AM BLASTING CONTRACT MINER Narrative [facility]CRO[facility] - 11/19/2024 1:56 PM BLASTING CONTRACT MINER Enterobacter cloacae, Citrobacter freundii, Klebsiella (formerly Enterobacter) [...] North MD LAB - MICROBIOLOGY O RDERABLES Performing Organization Address City/[facility] Co de Phone Number [facility] MICROBIOLOGY [address] [place] [address], [facility] [phone] * CULTURE ANAEROBE (11/17/2024 8:38 AM BLASTING CONTRACT MINER) Only the most recent of5 resultswithin the time period is included. Culture No anaerobic organisms isolated JERILYN 11/22/2024 1:20 PM BLASTING CONTRACT MINER [facility] MICROBIOLOGY Microbiology ENTIRE KNEE REGION / Unknown Collection / Unknown 11/17/2024 8:38 AM BLASTING CONTRACT MINER 11/17/2024 8:46 AM BLASTING CONTRACT [employer]ER Daryn North MD LAB - MICROBIOLOGY O RDERABLES Performing Organization Address [facility] Co de Phone Number [facility] MICROBIOLOG[facility] [address] [place] [address], [facility] [phone] * ETT LINE PERFORMABLE (11/17/2024 7:55 AM BLASTING CONTRACT MINER) Narrative Sandro Corona DO - 11/17/2024 7:55 AM BLASTING CONTRACT [employer]ER Sandro Corona DO 11/17/2024 7:56 AM Endotracheal Tube Placement: Patient Location: OR. Intubation Event Date/Time: 11/17/2024 7:45 AM Procedure: intubation ([id number]) Procedure Section: Sedation: under general anesthesia. Indications [...] MD. Annie Carter MD GENERAL ANESTHESIA O RDERABLES * URINALYSIS REFLEX TO MICROSCOPIC NO CULTURE (11/16/2024 1:08 PM BLASTING CONTRACT MINER) Color UA Straw Straw, Yellow 11/16/2024 1:[address] [facility] Clarity UA Clear Clear 11/16/2024 1:29 PM [facility] Specific Weare UA 1.008 1.005 - 1.030 11/16/2024 1:29 PM [facility] pH UA 5.0 5.0 - 8.0 pH 11/16/2024 1:29 PM [facility] Protein UA Negative Negative 11/16/2024 1:29 PM [facility] Glucose UA Negative Negative 11/16/2024 1:29 PM [facility] Ketone UA Negative Negative 11/16/2024 1:29 PM [facility] Bilirubin UA Negative Negative 11/16/2024 1:29 PM [facility] Blood UA Negative Negative 11/16/2024 1:29 PM [facility] Nitrite UA Negative Negative 11/16/2024 1:29 PM [facility] Leukocyte Esterase Negative Negative 11/16/2024 1:29 PM [facility] Urobilinogen UA Negative Negative mg/dL 11/16/2024 1:29 PM [facility] RBC UA 0-2 None Seen, 0-2, 3-5 /HPF 11/16/2024 1:29 PM [facility] WBC UA 0-5 None Seen, 0-5 /HPF 11/16/2024 1:29 PM [facility] Squamous Epithelial Cells UA 0-2 None Seen, 0-2, 3-5 /HPF 11/16/2024 1:29 PM [facility] Urine URINE SPECIMEN OBTAINED BY CLEAN CATCH PROCEDURE / Unknown Collection / Unknown 11/16/2024 1:08 PM BLASTING [employer]ER 11/16/2024 1:22 PM [facility] - 11/16/2024 1:29 PM BLASTING CONTRACT MINER Neftali Read MD LAB - URINALYS IS ORDERABLES [facility] [address] [place] [address], [place] [phone] * PROTEIN URINE RANDOM QUANTITATIVE (11/16/2024 1:08 PM BLASTING CONTRACT MINER) Protein Urine <7 Not Established mg/dL 11/16/2024 1:43 PM BLASTING CONTRACT MINER [facility] Urine URINE SPECIMEN OBTAINED BY CLEAN CATCH PROCEDURE / Unknown Collection / Unknown 11/16/2024 1:08 PM BLASTING CONTRACT [employer]ER 11/16/2024 1:22 PM BLASTING CONTRACT [employer]ER Neftali Read MD LAB - URINE CH EMISTRY ORDERABLES [address] [address], [place] [phone] * SODIUM URINE RANDOM (11/16/2024 1:08 PM BLASTING CONTRACT MINER) Sodium Urine 35 Not Established mmol/L 11/16/2024 1:43 PM BLASTING CONTRACT [employer]ER [facility] Urine URINE SPECIMEN OBTAINED BY CLEAN CATCH PROCEDURE / Unknown Collection / Unknown 11/16/2024 1:08 PM BLASTING CONTRACT [employer]ER 11/16/2024 1:22 PM BLASTING CONTRACT MINER Neftali Read MD LAB - URINE CH EMISTRY ORDERABLES Performing Organization Address City/[facility]/ZIP Co de Phone Number [address] [address], [place] [phone] * UREA NITROGEN URINE RANDOM (11/16/2024 1:08 PM BLASTING CONTRACT MINER) Urea Nitrogen Random Urine 295 Not Established mg/dL 11/16/2024 1:43 PM BLASTING CONTRACT MINER [facility] Urine URINE SPECIMEN OBTAINED BY CLEAN CATCH PROCEDURE / Unknown Collection / Unknown 11/16/2024 1:08 PM BLASTING [employer]ER 11/16/2024 1:22 PM BLASTING [employer]ER Neftali Read MD LAB - URINE CH EMISTRY ORDERABLES Performing Organization Address City/[facility]/ZIP Co de Phone Number [address] [address], [place] [phone] * CREATININE URINE RANDOM (11/16/2024 1:08 PM BLASTING CONTRACT MINER) Creatinine Urine 44.87 Not Established mg/dL 11/16/2024 1:43 PM BLASTING CONTRACT MINER [facility] Urine URINE SPECIMEN OBTAINED BY CLEAN CATCH PROCEDURE / Unknown Collection / Unknown 11/16/2024 1:08 PM BLASTING CONTRACT [employer]ER 11/16/2024 1:22 PM BLASTING [employer]ER Neftali Read MD LAB - URINE CH EMISTRY ORDERABLES Performing Organization Address City/[facility]/ZIP Co de Phone Number [address] [address], [facility] [phone] * (ABNORMAL) VITAMIN D 25-HYDROXY (11/15/2024 12:56 AM BLASTING CONTRACT MINER) Only the most recent of2 resultswithin the time period is included. Vitamin D, 25 Hydroxy 25.9(L) 30.0 - 80.0 ng/mL 11/15/2024 3:11 AM [facility] Comment: The recommendations for 25-Hydroxy Vitamin [...] Lab Venipuncture / Unknown 11/15/2024 12:56 AM BLASTING CONTRACT [employer]ER 11/15/2024 2:11 AM BLASTING CONTRACT [employer]ER Sol Leal PA-C LAB - CHEMISTRY ORDERABLES Performing Organization Address [facility]/ZIP Co de Phone Number [address] [address], [facility] [phone] * FOLATE (11/15/2024 12:56 AM BLASTING CONTRACT MINER) Folate 10.0 7.0 - 31.4 ng/mL 11/15/2024 3:11 AM [facility] Blood BLOOD SPECIMEN / Unknown Lab Venipuncture / Unknown 11/15/2024 12:56 AM [employer]ING [employer]ER 11/15/2024 2:11 AM BLASTING [employer]ER Sol Deterding PA-C LAB - CHEMISTRY ORDERABLES [address] [address], [facility] [phone] * VITAMIN B12 (11/15/2024 12:56 AM BLASTING CONTRACT MINER) Vitamin B12 583 213 - 816 pg/mL 11/15/2024 3:11 AM [facility] Blood BLOOD SPECIMEN / Unknown Lab Venipuncture / Unknown 11/15/2024 12:56 AM BLASTING CONTRACT MINER 11/15/2024 2:11 AM BLASTING CONTRACT MINER Sol Deterding PA-C LAB - CHEMISTRY ORDERABLES Performing Organization Address City/[facility]/ZIP Co de Phone Number [address] [address], [place] [phone] * (ABNORMAL) IRON + TRANSFERRIN PANEL (11/15/2024 12:56 AM BLASTING [employer]ER) Iron 19(L) 40 - 150 ug/dL 11/15/2024 3:01 AM [facility] Transferrin 151(L) 174 - 382 mg/dL 11/15/2024 3:01 AM [facility] Transferrin Saturation % 10(L) 16 - 50 % 11/15/2024 3:01 AM [facility] TIBC Calculated 189(L) 240 - 450 ug/dL 11/15/2024 3:01 AM [facility] Blood BLOOD SPECIMEN / Unknown Lab Venipuncture / Unknown 11/15/2024 12:56 AM [employer]ING [employer]ER 11/15/2024 2:07 AM BLASTING [employer]ER Sol Deterding PA-C LAB - CHEMISTRY ORDERABLES [address] [place] [address], [facility] [phone] * (ABNORMAL) FERRITIN (11/15/2024 12:56 AM BLASTING CONTRACT MINER) Ferritin 668(H) 13 - 204 ng/mL 11/15/2024 3:19 AM BLASTING CONTRACT [employer]ER [facility] Blood BLOOD SPECIMEN / Unknown Lab Venipuncture / Unknown 11/15/2024 12:56 AM BLASTING [employer]ER 11/15/2024 2:07 AM BLASTING [employer]ER Sol Leal PA-C LAB - CHEMISTRY ORDERABLES [address] [address], [facility] [phone] * HEMOGLOBIN A1C (11/14/2024 4:18 PM BLASTING CONTRACT [employer]ER) Hemoglobin A1c 5.0 <=5.6 % 11/14/2024 5:30 PM [facility] Estimated Average Glucose 97 mg/dL 11/14/2024 5:30 PM [facility] Comment: HbA1c Interpretation: Normal : < 5.7% Pre-diabetes: 5.7-6.4% Diabetes: Equal to or greater than 6.5% Test results diagnostic of diabetes should be repeated for confirmation. Treatment target values recommended by ADA and other clinical organizations should be used to evaluate metabolic control in patients. Reference: [place] [employer], Standards of Care in Diabetes -2020 In patients 70 years and older consider HbA1c target range of 7.0-7.5% (Reference: Samy Cunningham et al. JAMDA. 2012) The Sebia assay for the measurement of HbA1c is a National Glycohemoglobin Standardization Program (NGSP) certified method. Blood BLOOD SPECIMEN / Unknown Lab Venipuncture / Unknown 11/14/2024 4:18 PM [employer]ING [employer]ER 11/14/2024 4:33 PM [employer]ING [employer]ER Daryn North MD LAB - CHEMISTRY KONG JENSEN [address] [address], [facility] [phone] * (ABNORMAL) COMPREHENSIVE METABOLIC PANEL (11/14/2024 4:18 PM [facility]) Only the most recent of2 resultswithin the time period is included. BUN 25 7 - 26 mg/dL 11/14/2024 5:02 PM [facility] Creatinine 1.51(H) 0.56 - 0.96 mg/dL 11/14/2024 5:02 PM [facility] [facility] Sodium 135(L) 136 - 145 mmol/L 11/14/2024 5:02 PM [facility] Potassium 4.2 3.5 - 4.5 mmol/L 11/14/2024 5:02 PM [facility] Chloride 105 98 - 107 mmol/L 11/14/2024 5:02 PM [facility] CO2 20(L) 22 - 29 mmol/L 11/14/2024 5:02 PM [facility] Glucose 329(H) 70 - 99 mg/dL 11/14/2024 5:02 PM [facility] Calcium 8.3(L) 8.4 - 10.2 mg/dL 11/14/2024 5:02 PM [facility] Protein Total 5.7(L) 6.0 - 8.3 g/dL 11/14/2024 5:02 PM [facility] Albumin 2.2(L) 3.4 - 5.0 g/dL 11/14/2024 5:02 PM [facility] Bilirubin Total 0.4 0.2 - 1.2 mg/dL 11/14/2024 5:02 PM [facility] Alkaline Phosphatase 292(H) 40 - 150 U/L 11/14/2024 5:02 PM [facility] ALT 262(H) 5 - 55 U/L 11/14/2024 5:02 PM [facility] AST 373(H) 5 - 34 U/L 11/14/2024 5:02 PM [facility] Anion Gap 10 6 - 16 11/14/2024 5:02 PM [facility] BUN/Creatinine Ratio 17 7 - 23 11/14/2024 5:02 PM [facility] Osmolality Calculated 297(H) 275 - 295 mOsm/kg 11/14/2024 5:02 PM [facility] Albumin/Globulin Ratio 0.6(L) 1.1 - 2.3 11/14/2024 5:02 PM [facility] eGFR by CKD-EPI 38(L) >=90 mL/min/1.7 3 m2 11/14/2024 5:02 PM [facility] Blood BLOOD SPECIMEN / Unknown Lab Venipuncture / Unknown 11/14/2024 4:18 PM [employer] 11/14/2024 4:33 PM [employer] Missy Melgar PA-C LAB - CHEMIS TRY ORDERABLES [facility] [address] [place] [address], [facility] [phone] * ETT LINE PERFORMABLE (11/14/2024 7:57 AM [employer]) Narrative Mauro Miguel Anes Asst - 11/14/2024 7:57 AM [employer] Mauro Miguel Anes Asst 11/14/2024 7:57 AM Endotracheal Tube Placement: Patient Location: OR. Intubation Event Date/Time: 11/14/2024 7:33 AM Procedure: intubation (09073) Procedure Section: Sedation: IV sedation. Indications for [...] CBC W AUTO DIFFERENTIAL (11/14/2024 6:47 AM [facility]) Only the most recent of2 resultswithin the time period is included. WBC 7.3 4.0 - 10.7 x10E9/L 11/14/2024 7:45 AM [facility] RBC Count 3.30(L) 3.90 - 5.20 x10E12/L 11/14/2024 7:45 AM [facility] Hemoglobin 8.9(L) 11.9 - 15.8 g/dL 11/14/2024 7:45 AM [facility] Hematocrit 27.8(L) 34.8 - 46.1 % 11/14/2024 7:45 AM [facility] MCV 84.2 80.0 - 98.0 fL 11/14/2024 7:45 AM [facility] MCH 27.0 26.7 - 33.6 pg 11/14/2024 7:45 AM [facility] MCHC 32.0 31.7 - 36.3 g/dL 11/14/2024 7:45 AM [facility] RDW-CV 14.9(H) 11.3 - 14.8 % 11/14/2024 7:45 AM [facility] Platelet Count 11/14/2024 7:45 AM [facility] Comment:Platelets clumped on slide but appears adequate. Recommend repeat with a sodium citrate blue top tube. MPV 11/14/2024 7:45 AM [facility] Comment:Unable to report Neutrophil % 73.6 41.0 - 74.0 % 11/14/2024 7:45 AM [facility] Lymphocyte % 16.6(L) 17.0 - 47.0 % 11/14/2024 7:45 AM [facility] Monocyte % 8.4 3.0 - 11.0 % 11/14/2024 7:45 AM [facility] Eosinophil % 0.8 0.0 - 7.0 % 11/14/2024 7:45 AM [facility] Basophil % 0.3 0.0 - 1.6 % 11/14/2024 7:45 AM [facility] Immature Granulocytes % 0.3 0.0 - 1.0 % 11/14/2024 7:45 AM [facility] Neutrophil Absolute 5.34 1.60 - 7.50 x10E9/L 11/14/2024 7:45 AM [facility] Lymphocyte Absolute 1.20 1.00 - 4.40 x10E9/L 11/14/2024 7:45 AM [facility] Monocyte Absolute 0.61 0.15 - 1.00 x10E9/L 11/14/2024 7:45 AM [facility] Eosinophil Absolute 0.06 0.00 - 0.60 x10E9/L 11/14/2024 7:45 AM [facility] Basophil Absolute 0.02 0.00 - 0.13 x10E9/L 11/14/2024 7:45 AM [facility] Blood BLOOD SPECIMEN / Unknown Venipuncture / Unknown 11/14/2024 6:47 AM [employer] 11/14/2024 6:54 AM [employer] Flaco Rebollar MD LAB - HEMATOLOGY ORD ERABLES [facility] [address] [place] [address], [facility] [phone] * XR Wrist Left 3Vw or More (11/12/2024 9:24 AM [employer]) Anatomical Region Laterality Modality Wrist / Hand Radiographic Christa ging 11/12/2024 9:34 AM [employer] Impressions 11/12/2024 9:36 AM [employer] IMPRESSION: Mildly displaced distal radial fracture. > Interpreting Provider: Yefri Groves MD on 11/12/2024 9:36 AM Narrative 11/12/2024 9:36 AM [employer] PROCEDURE: XR WRIST LEFT 3VW OR MORE [...] Tibia Fibula Right 2Vw (11/12/2024 9:22 AM [employer]) Only the most recent of4 resultswithin the time period is included. Anatomical Region Laterality Modality Lower Extremity Radiographic Christa ging 11/12/2024 9:32 AM [employer] Impressions 11/12/2024 9:34 AM [employer] IMPRESSION: Redemonstration of a proximal tibial fracture fixation and distal tibiofibular syndesmotic fixation, unchanged in alignment. > Interpreting Provider: Yefri Groves MD on 11/12/2024 9:34 AM Narrative 11/12/2024 9:34 AM [employer] PROCEDURE: XR TIBIA FIBULA RIGHT 2VW DATE/TIME [...] MD DIAGNOSTIC IMAGING O RDERABLES * [facility] (10/10/2024 11:01 AM [employer]) Only the most recent of2 resultswithin the time period is included. Narrative [facility] RADIOLOGY - 10/10/2024 11:02 AM [employer] Fluoroscopy was used for this exam in the OR. Please see the Operative report. Daryn North MD FLUOROSCOPY ORDERABL ES [facility] RADIOLOGY * IV PLACEMENT PERFORMABLE (10/10/2024 8:22 AM [employer]) Narrative Karol Dunn APRN-CRNA - 10/10/2024 8:22 AM [employer] Karol Dunn APRN-CRNA 10/10/2024 8:23 AM Peripheral IV Line Placement: Patient Location: OR Procedure: IV start ([id number]) Procedure Section: Skin Prep: alcohol. Orientation: left Location: forearm Catheter Gauge: 18 Number of Attempts: 1. Procedure Tolerance: performed while patient under general anesthesia. Staff Section Anesthesia Provider: Karol Dunn APRN-CRNA, Performed the procedure Joey Oneal MD GENERAL ANESTHESIA O [place] * ETT LINE PERFORMABLE (10/10/2024 8:22 AM [employer]) Narrative Karol Dunn APRN-CRNA - 10/10/2024 8:22 AM [employer] Karol Dunn APRN-CRNA 10/10/2024 8:22 AM Endotracheal Tube Placement: Patient Location: OR. Intubation Event Date/Time: 10/10/2024 7:43 AM Procedure: intubation ([id number]) Procedure Section: Sedation: under general anesthesia. Indications [...] AM. Staff Section Anesthesia Provider: Karol Dunn APRN-CRNA, Performed the procedure Joey Oneal MD GENERAL ANESTHESIA O [place] * XR Knee Right 2Vw or Less (09/21/2024 11:00 AM [employer]) Only the most recent of2 resultswithin the time period is included. Anatomical Region Laterality Modality Lower Extremity Digital Radiogra phy 09/21/2024 7:17 PM [employer] Impressions 09/21/2024 7:18 PM [employer] IMPRESSION: Comminuted fracture of the proximal tibia with interval placement of traction pin in the distal femoral diaphysis. > Interpreting Provider: Natalio Nam on 09/21/2024 7:18 PM Narrative 09/21/2024 7:18 PM [employer] PROCEDURE: XR KNEE RIGHT 2VW OR LESS [...] PM Marifer Saeed MD DIAGNOSTIC IMAGING O RDERABLES * IV PLACEMENT PERFORMABLE (09/19/2024 4:47 PM [employer]) Narrative Karol Dunn APRN-CRNA - 09/19/2024 4:47 PM [employer] Karol Dunn APRN-SHANTAL 09/19/2024 4:47 PM Peripheral IV Line Placement: Patient Location: OR Insertion Time: 09/19/2024 4:39 PM Procedure: IV start ([id number]) Procedure Section: Skin Prep: alcohol. Orientation: left Location: hand Catheter Gauge: 20 Number of Attempts: 1. Procedure Tolerance: performed while patient under general anesthesia. Staff Section Anesthesia Provider: Karol Dunn APRN-CRNA, Performed the procedure Chelsey Minaya MD GENERAL ANESTHESIA O [place] * ETT LINE PERFORMABLE (09/19/2024 4:46 PM [employer]) Narrative Karol Dunn APRN-CRNA - 09/19/2024 4:46 PM [employer] Karol Dunn APRN-CRNA 09/19/2024 4:47 PM Endotracheal Tube Placement: Patient Location: OR. Intubation Event Date/Time: 09/19/2024 4:23 PM Procedure: intubation ([id number]) Procedure Section: Sedation: under general anesthesia. Indications [...] 4:23 PM. Staff Section Anesthesia Provider: Karol Dunn APRN-CRNA, Performed the procedure Chelsey Minaya MD GENERAL ANESTHESIA O [place] * CT Tibia Fibula Right Wo Cont (09/19/2024 1:14 AM [employer]) Anatomical Region Laterality Modality Lower Extremity Computed Tomogra phy 09/19/2024 1:28 AM [employer] Impressions 09/19/2024 1:47 AM [employer] IMPRESSION: 1.Acute comminuted and moderately displaced fracture of the proximal tibia with intra-articular extension involving the medial and lateral tibial plateaus. 2.Soft tissue swelling about the knee and proximal lower leg with small volume hemarthrosis. Report dictated by Valentín Zheng MD (residential direct support professional). I, Alejandro Hung MD have personally reviewed and interpreted this examination/study. > Interpreting Provider: Alejandro Hung MD on 09/19/2024 1:47 AM Narrative 09/19/2024 1:47 AM [employer] PROCEDURE: CT KNEE RIGHT WO CONTRAST, CT TIBIA FIBULA RIGHT WO CONT, DATE/TIME OF EXAM: 09/19/2024 1:15 AM, LOCATION [facility] INDICATION: M79.604: Right leg pain ADDITIONAL CLINICAL INFORMATION: Ordering Provider Reason For Exam: eval fracture (accession [id number]), fracture (accession [id number]) COMPARISON: Right knee and right tibia-fibula radiographs [...] DATE/TIME OF EXAM: 09/19/2024 1:15 AM, LOCATION [facility] INDICATION: M79.604: Right leg pain ADDITIONAL CLINICAL INFORMATION: Ordering Provider Reason For Exam: eval fracture (accession [id number]), fracture (accession [id number]) COMPARISON: Right knee and right tibia-fibula radiographs [...] hemarthrosis. Report dictated by Valentín Zheng MD (residential direct support professional). Alejandro Garcia MD have personally reviewed and interpreted this examination/study. > Interpreting Provider: Alejandro Hung MD on 09/19/2024 1:47 AM Adeola Carreon MD CT ORDERABLES * CT Knee Right Wo Contrast (09/19/2024 1:14 AM [employer]) Anatomical Region Laterality Modality Lower Extremity Computed Tomogra phy 09/19/2024 1:28 AM [employer] Impressions 09/19/2024 1:47 AM [employer] IMPRESSION: 1.Acute comminuted and moderately displaced fracture of the proximal tibia with intra-articular extension involving the medial and lateral tibial plateaus. 2.Soft tissue swelling about the knee and proximal lower leg with small volume hemarthrosis. Report dictated by Valentín Zheng MD (residential direct support professional). Alejandro Garcia MD have personally reviewed and interpreted this examination/study. > Interpreting Provider: Alejandro Hung MD on 09/19/2024 1:47 AM Narrative 09/19/2024 1:47 AM [employer] PROCEDURE: CT KNEE RIGHT WO CONTRAST, CT TIBIA FIBULA RIGHT WO CONT, DATE/TIME OF EXAM: 09/19/2024 1:15 AM, LOCATION [facility] INDICATION: M79.604: Right leg pain ADDITIONAL CLINICAL INFORMATION: Ordering Provider Reason For Exam: eval fracture (accession [id number]), fracture (accession [id number]) COMPARISON: Right knee and right tibia-fibula radiographs [...] DATE/TIME OF EXAM: 09/19/2024 1:15 AM, LOCATION [facility] INDICATION: M79.604: Right leg pain ADDITIONAL CLINICAL INFORMATION: Ordering Provider Reason For Exam: eval fracture (accession [id number]), fracture (accession [id number]) COMPARISON: Right knee and right tibia-fibula radiographs [...] hemarthrosis. Report dictated by Valentín Zheng MD (residential direct support professional). IAlejandro MD have personally reviewed and interpreted this examination/study. > Interpreting Provider: Alejandro Hung MD on 09/19/2024 1:47 AM Adeola Carreon MD CT ORDERABLES * XR Foot Right 3Vw or More (09/19/2024 12:45 AM [employer]) Anatomical Region Laterality Modality Ankle / Foot Digital Radiogra phy 09/19/2024 1:25 AM [employer] Narrative 09/19/2024 9:28 AM [employer] PROCEDURE: XR FOOT RIGHT 3VW OR MORE, DATE/TIME OF EXAM: 09/19/2024 12:45 AM, LOCATION [facility] INDICATION: M79.604: Right leg pain ADDITIONAL CLINICAL [...] MORE, DATE/TIME OF EXAM: 2:45 AM, LOCATION [facility] INDICATION: M79.604: Right leg pain ADDITIONAL CLINICAL [...] the patient. Procedure Code(s): --- Professional --- 44867, Colonoscopy, flexible; with removal of tumor(s), polyp(s), or other lesion(s) by snare technique 95041, 59, Colonoscopy, flexible; with biopsy, single or multiple Diagnosis Code(s): --- Professional --- Z12.11, Encounter for screening for malignant neoplasm of colon D12.0, Benign neoplasm of cecum CPT copyright 2021 [employer]. All rights reserved. The codes documented in this report are preliminary and upon wildland firefighter review may be revised to meet current compliance requirements. Balwinder Goncalves MD 05/30/2024 10:32:28 AM This report has been signed electronically. Note Initiated On: 05/30/2024 9:42 AM Number of Addenda: [id number] [place] [address] [employer]OVATION 05/30/2024 9:42 AM CDT Balwinder Goncalves MD GI PROCEDURE ORDERAB LES [facility] from Last 3 Months or Most Recently [...] 12:27 PM 03/16/2021 2:18 PM Care Teams Phytopathology Teacher Relationship Specialty Start Date End Date Geovanni Rodriguez DO [address] [place] [address] PCP - General Internal Medicine 09/19/24
--- OUTSIDE RECORDS SUMMARY | 2024-11-24 17:18 | XMS_ITS | Continuity of Care Document ---
Author Organization [facility] Address [address] [place] [address] Phone Care Team Providers Care Outside Plant Technician Name Role Phone Remedios Lux Unavailable Unavailable Advance Directives Directive Yes / No Effective Date File Name No Information Encounters Encounter Description Practice Location Reason(s) For Visit Diagnoses Date Provider Providers Copied on Encounter [facility], [id number] [place] [address] [address], [place], [place], [id number], [place] tel:[phone] [facility] No Information Dec-3 1-200 6 Maci Whittaker. [address] , [place] [address], [place], [address], [place]. tel:[phone] Referring Provider: Harrison Harding MD, [address] [place], [address]. tel:[phone] Family History Family Member Type Diagnosis Age At Onset No Information Payers Payer name Insurance type Covered democrat ID Authoriza tion(s) No Information Social History Type Description Quantity Date Captured Comments Sex Female Smoking Status No Information Chief Complaint And Reason For Visit No Information Reason For Referral Reason For Referral No Information History Of Present Illness Encounter Date Complaint History Of Prese nt Illness No Information Functional Status Date Functional Assessmen t No Information Instructions Date Instruction Additional Infor mation No Information Assessments Type Assessment Date No Information Patient Care Teams Name Effective Dates (start - stop) Status Members No Information
--- OUTSIDE RECORDS SUMMARY | 2024-11-24 17:18 | XMS_ITS | Clinical Summary ---
Author Organization Unknown Care Team Providers Care Labor Service Representative Name Role Phone ALONZOKIRA Unavailable Unavailable DARLENE PHYSICAL THERAPIST, SADIQ Unavailable Unavailable [employer] ENG[employer], CHERYL Unavail able Unavailable ALYSON REGISTERED NURSE SHIFT MGR, PEDRO Meena vailable Unavailable NICKERSON OCCUPATIONAL THERAPIST, ALEXANDER Unavailable Unavailable Payers Payer Name Policy Type Policy Number Effective Date Expira tion Date MEDICARE [place] - EPISODIC [id number] Problems Condition Name Condition Details Condition Category Status Onset Date Resolution Date Last Treatment Date Treating Clinician Comments INFCT FOL A PROCEDURE, DEEP INCISIONAL SURGICAL SITE, INIT Active 10-15 00:00: 00 OTH BACTERIAL AGENTS THE CAUSE OF DISEASES CLASSD ELSWHR Active 10-15 00:00: 00 PRPH TEAR OF LAT MENSC, CURRENT INJURY, RIGHT KNEE, SUBS Active 10-15 00:00: 00 OTHER SPECIFIED DISEASES OF LIVER Active 10-15 00:00: 00 HYPERTENSIVE CHRONIC KIDNEY DISEASE W STG 1-4/UNSP CHR KDNY Active 10-15 00:00: 00 CHRONIC KIDNEY DISEASE, STAGE 2 (MILD) Active 10-15 00:00: 00 PURE HYPERCHOLEST EROLEMIA, UNSPECIFIED Active 10-15 00:00: 00 GASTRO-ESOPH AGEAL REFLUX DISEASE WITHOUT ESOPHAGITIS Active 10-15 00:00: 00 ARTHRODESIS STATUS Active 10-15 00:00: 00 ACQUIRED ABSENCE OF OTHER SPECIFIED PARTS OF DIGESTIVE TRACT Active 10-15 00:00: 00 ACQUIRED ABSENCE OF BOTH CERVIX AND UTERUS Active 10-15 00:00: 00 ACQUIRED ABSENCE OF OVARIES, UNILATERAL Active 10-15 00:00: 00 ACQUIRED ABSENCE OF OTHER PART OF HEAD AND NECK Active 10-15 00:00: 00 PERSONAL HISTORY OF NICOTINE DEPENDENCE Active 10-15 00:00: 00 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 Active 10-15 00:00: 00 HISTORY OF FALLING Active 10-15 00:00: 00 Allergies, Adverse Reactions, Alerts Allergy Name Allergy Type Status Severity Reaction(s) Onset Date Inactive Date Treating Clinician Comments MEPERIDINE Propensity to adverse reactions Active 2023-10 11:27: 34 ASPIRIN Propensity to adverse reactions Active 2023-10 11:27: 41 SULFA (SULFONAMIDE S) Propensity to adverse reactions Active 2023-10 11:27: 48 SKIN ADHESIVES Propensity to adverse reactions Active 2023-10 11:27: 54 NICKEL Propensity to adverse reactions Active 2023-10 11:27: 59 Medications Ordered Medication Name Filled Medication Name Start Date Stop Date Current Medication? Ordering Clinician Indication Dosage Frequency Signature (SIG) Comments Components acetaminoph en 500 mg tablet 2023-10 00:00: 00 10-22 23:59 :00 No [id number] PAIN 2 tablet EVERY 6 HOURS 2 tablet EVERY 6 HOURS (route: oral) Med Classific ation: Analgesic , Anti-infl ammatory or Antipyret ic amlodipine 5 mg tablet 2023-10 00:00: 00 Yes [id number] HTN 1 tablet ONCE DAILY 1 tablet ONCE DAILY (route: oral) Med Classific ation: Cardiovas cular Therapy Agents aspirin 325 mg tablet 2023-10 00:00: 00 10-22 23:59 :00 No [id number] PREVENT BLOOD CLOTS 1 tablet TWICE DAILY 1 tablet TWICE DAILY (route: oral) Med Classific ation: Analgesic , Anti-infl ammatory or Antipyret ic atorvastati n 20 mg tablet 2023-10 00:00: 00 Yes [id number] HLD 1 tablet ONCE DAILY 1 tablet ONCE DAILY (route: oral) Med Classific ation: Cardiovas cular Therapy Agents cyclobenzap rine 5 mg tablet 2023-10 00:00: 11-20 23:59 :00 No [id number] MUSCLE SPASMS 1 tablet 3 TIMES DAILY 1 tablet 3 TIMES DAILY (route: oral) Med Classific ation: Locomotor System docusate sodium 100 mg capsule 2023-10 00:00: 00 11-20 23:59 :00 No [id number] CONSTIPATIO N 1 capsule TWICE DAILY 1 capsule TWICE DAILY (route: oral) Med Classific ation: Gastroint estinal Therapy Agents famotidine 40 mg tablet 2023-10 00:00: 00 Yes [id number] ACID REFLUX 1 tablet ONCE DAILY 1 tablet ONCE DAILY (route: oral) Med Classific ation: Gastroint estinal Therapy Agents hydrochloro thiazide 25 mg tablet 2023-10 00:00: 00 11-20 23:59 :00 No [id number] DIURESIS 1 tablet ONCE DAILY 1 tablet ONCE DAILY (route: oral) Med Classific ation: Cardiovas cular Therapy Agents losartan 100 mg tablet 2023-10 00:00: 00 11-20 23:59 :00 No [id number] HTN 1 tablet ONCE DAILY 1 tablet ONCE DAILY (route: oral) Med Classific ation: Cardiovas cular Therapy Agents oxycodone 5 mg tablet 2023-10 00:00: 00 10-22 23:59 :00 No [id number] PAIN 1 tablet EVERY 6 HOURS 1 tablet EVERY 6 HOURS (route: oral) Med Classific ation: Analgesic , Anti-infl ammatory or Antipyret ic Senna Lax 8.6 mg tablet 2023-10 00:00: 00 Yes [id number] CONSTIPATIO N 1 tablet ONCE DAILY 1 tablet ONCE DAILY (route: oral) Med Classific ation: Gastroint estinal Therapy Agents Vitamin D3 25 mcg (1,000 unit) capsule 2023-10 00:00: 00 Yes [id number] LOW VITAMIN D 1 capsule ONCE DAILY 1 capsule ONCE DAILY (route: oral) Med Classific ation: Electroly te Balance-N utritiona l Products aspirin 81 mg tablet,ana yed release 10-22 00:00: 00 Yes [id number] PREVENT BLOOD CLOTS 1 tablet TWICE DAILY 1 tablet TWICE DAILY (route: oral) Med Classific ation: Hematolog ical Agents clindamycin HCl 300 mg capsule 10-22 00:00: 00 11-06 23:59 :00 No [id number] PREVENT WOUND INFECTION 1 capsule 4 TIMES DAILY 1 capsule 4 TIMES DAILY (route: oral) Med Classific ation: Anti-Infe ctive Agents oxycodone-a cetaminophe n 5 mg-325 mg tablet 10-22 00:00: 00 11-20 23:59 :00 No [id number] RIGHT KNEE PAIN 1 tablet EVERY 6 HOURS 1 tablet EVERY 6 HOURS (route: oral) Med Classific ation: Analgesic , Anti-infl ammatory or Antipyret ic cefepime 2 gram solution for injection 11-20 00:00: 00 Yes [id number] RLE WOUND INFECTION 2 g EVERY 8 HOURS 2 g EVERY 8 HOURS (route: injection) Alternate Route: IV PUSH. Med Classific ation: Anti-Infe ctive Agents Heparin Lock Flush (Porcine) (PF) 100 unit/mL intravenous syringe 11-20 00:00: 00 Yes [id number] IF LINE BECOMES SLUGGISH 3-5 mL ONCE DAILY 3-5 mL ONCE DAILY (route: intravenou s) Alternate Route: IV PUSH. Med Classific ation: Hematolog ical Agents Normal Saline Flush 0.9 % injection syringe 11-20 00:00: 00 Yes [id number] KEEP LINE PATENT 20 mL EVERY 8 HOURS 20 mL EVERY 8 HOURS (route: injection) Alternate Route: IV PUSH. Med Classific ation: Electroly te Balance-N utritiona l Products oxycodone 5 mg tablet 11-20 00:00: 00 Yes [id number] RIGHT LEG PAIN 1 tablet EVERY 4 HOURS 1 tablet EVERY 4 HOURS (route: oral) Med Classific ation: Analgesic , Anti-infl ammatory or Antipyret ic Immunizations Ordered Immunization Name Filled Immunization Name Date Status Comments Refusal Reason INFLUENZA, TIV (INACTIVATED) 2024-07-02 00:00:00 Vital Signs Vital Name Observation Time Observation Value Commen ts Temperature 2024-11-24 14:57:00.000 98.1 [degF] Temperature 2024-11-22 13:08:00.000 97.6 [degF] Temperature 2024-11-11 09:35:00.000 99.5 [degF] Temperature 2024-11-07 11:51:00.000 97.6 [degF] Temperature 2024-11-06 14:31:00.000 97.9 [degF] Temperature 2024-11-03 14:41:00.000 98.5 [degF] Temperature 2024-10-31 11:17:00.000 98 [degF] Temperature 2024-10-30 14:38:00.000 97.7 [degF] Temperature 2024-10-29 10:45:00.000 97.5 [degF] Temperature 2024-10-24 11:18:00.000 97.9 [degF] Temperature 2024-10-23 10:15:00.000 97.9 [degF] Temperature 2024-10-17 09:53:00.000 98.2 [degF] Temperature 2024-10-17 09:17:00.000 98.2 [degF] Temperature 2024-10-15 11:36:00.000 98 [degF] BMI (%) 2024-11-22 13:08:00.000 31 kg/m2 BMI (%) 2024-10-15 11:36:00.000 34 kg/m2 Height 2024-11-22 13:08:00.000 66 [in_us] Height 2024-10-15 11:36:00.000 66 [in_us] Pulse 2024-11-24 14:57:00.000 80 /min Pulse 2024-11-22 13:08:00.000 83 /min Pulse 2024-11-11 09:35:00.000 84 /min Pulse 2024-11-07 11:51:00.000 60 /min Pulse 2024-11-06 14:31:00.000 72 /min Pulse 2024-11-03 14:41:00.000 70 /min Pulse 2024-10-31 11:17:00.000 72 /min Pulse 2024-10-30 14:38:00.000 73 /min Pulse 2024-10-29 10:45:00.000 74 /min Pulse 2024-10-24 11:18:00.000 78 /min Pulse 2024-10-23 10:15:00.000 78 /min Pulse 2024-10-17 09:53:00.000 74 /min Pulse 2024-10-17 09:17:00.000 74 /min Pulse 2024-10-15 11:36:00.000 79 /min O2 Saturation (%) 2024-11-24 14:57:00.000 98 % O2 Saturation (%) 2024-11-22 13:08:00.000 98 % O2 Saturation (%) 2024-11-11 09:35:00.000 98 % O2 Saturation (%) 2024-11-07 11:51:00.000 96 % O2 Saturation (%) 2024-11-06 14:31:00.000 98 % O2 Saturation (%) 2024-11-03 14:41:00.000 97 % O2 Saturation (%) 2024-10-31 11:17:00.000 96 % O2 Saturation (%) 2024-10-30 14:38:00.000 97 % O2 Saturation (%) 2024-10-29 10:45:00.000 99 % O2 Saturation (%) 2024-10-24 11:18:00.000 98 % O2 Saturation (%) 2024-10-23 10:15:00.000 97 % O2 Saturation (%) 2024-10-17 09:53:00.000 97 % O2 Saturation (%) 2024-10-17 09:17:00.000 97 % O2 Saturation (%) 2024-10-15 11:36:00.000 94 % Respirations 2024-11-24 14:57:00.000 18 /min Respirations 2024-11-22 13:08:00.000 18 /min Respirations 2024-11-11 09:35:00.000 18 /min Respirations 2024-11-07 11:51:00.000 18 /min Respirations 2024-11-06 14:31:00.000 18 /min Respirations 2024-11-03 14:41:00.000 18 /min Respirations 2024-10-31 11:17:00.000 16 /min Respirations 2024-10-30 14:38:00.000 17 /min Respirations 2024-10-29 10:45:00.000 16 /min Respirations 2024-10-24 11:18:00.000 18 /min Respirations 2024-10-23 10:15:00.000 18 /min Respirations 2024-10-17 09:53:00.000 18 /min Respirations 2024-10-17 09:17:00.000 18 /min Respirations 2024-10-15 11:36:00.000 18 /min Weight (lbs) 2024-11-22 13:08:00.000 197 [lb_av] Weight (lbs) 2024-10-15 11:36:00.000 213 [lb_av] Systolic Blood Pressure 2024-11-24 14:57:00.000 122 mm [Hg] Systolic Blood Pressure 2024-11-22 13:08:00.000 140 mm [Hg] Systolic Blood Pressure 2024-11-11 09:35:00.000 110 mm [Hg] Systolic Blood Pressure 2024-11-07 11:51:00.000 120 mm [Hg] Systolic Blood Pressure 2024-11-06 14:31:00.000 126 mm [Hg] Systolic Blood Pressure 2024-11-03 14:41:00.000 128 mm [Hg] Systolic Blood Pressure 2024-10-31 11:17:00.000 112 mm [Hg] Systolic Blood Pressure 2024-10-30 14:38:00.000 110 mm [Hg] Systolic Blood Pressure 2024-10-29 10:45:00.000 110 mm [Hg] Systolic Blood Pressure 2024-10-24 11:18:00.000 116 mm [Hg] Systolic Blood Pressure 2024-10-23 10:15:00.000 112 mm [Hg] Systolic Blood Pressure 2024-10-17 09:53:00.000 112 mm [Hg] Systolic Blood Pressure 2024-10-17 09:17:00.000 112 mm [Hg] Systolic Blood Pressure 2024-10-15 11:36:00.000 118 mm [Hg] Diastolic Blood Pressure 2024-11-24 14:57:00.000 70 mm [Hg] Diastolic Blood Pressure 2024-11-22 13:08:00.000 68 mm [Hg] Diastolic Blood Pressure 2024-11-11 09:35:00.000 58 mm [Hg] Diastolic Blood Pressure 2024-11-07 11:51:00.000 76 mm [Hg] Diastolic Blood Pressure 2024-11-06 14:31:00.000 70 mm [Hg] Diastolic Blood Pressure 2024-11-03 14:41:00.000 70 mm [Hg] Diastolic Blood Pressure 2024-10-31 11:17:00.000 68 mm [Hg] Diastolic Blood Pressure 2024-10-30 14:38:00.000 65 mm [Hg] Diastolic Blood Pressure 2024-10-29 10:45:00.000 66 mm [Hg] Diastolic Blood Pressure 2024-10-24 11:18:00.000 66 mm [Hg] Diastolic Blood Pressure 2024-10-23 10:15:00.000 64 mm [Hg] Diastolic Blood Pressure 2024-10-17 09:53:00.000 54 mm [Hg] Diastolic Blood Pressure 2024-10-17 09:17:00.000 54 mm [Hg] Diastolic Blood Pressure 2024-10-15 11:36:00.000 60 mm [Hg] Plan of Treatment Planned Activity Planned Date Details Comments Future Scheduled Test HOME HEALT H NURSE TO INSTRUCT PATIENT/CAREGIVER AND ADMINISTER WOUND CARE TO RIGHT PATELLA CLOSED INCISION / SUTURE LINE: REMOVE OLD DRESSING. CLEANSE WITH NON-CYTOTOXIC WOUND CLEANSING AGENT AND PAT DRY WITH GAUZE. COVER WITH OPTIFOAM AND SECURE WITH TELFA AND TAPE NEEDED TO HOLD DRESSING IN PLACE. CHANGE DRESSING EVERY 2 DAYS AND PRN FOR DRESSING SOILAGE OR DISLODGMENT. DISCONTINUE WHEN WOUND IS HEALED. MAY ADD S PRN VISITS PER MONTH FOR WOUND COMPLICATIONS SUCH REDNESS, INCREASE IN DRAINAGE AND OR PAIN OR COMPROMISED DRESSING. CAREGIVER MAY PERFORM DRESSING CHANGE IN ABSENCE OF HOME HEALTH STAFF ONCE ABLE TO ACCURATELY RETURN DEMONSTRATE. PHYSICAL THERAPIST MAY ASSIST WITH WOUND CARE. SUTURES ARE DISSOLVABLE AND THE ONES THAT ARE NOT WILL BE REMOVED IN CLINIC BY SUSY AT FOLLOW UP APPT. [code = HOME HEALTH NURSE TO INSTRUCT PATIENT/CAREGIVER AND ADMINISTER WOUND CARE TO RIGHT PATELLA CLOSED INCISION / SUTURE LINE: REMOVE OLD DRESSING. CLEANSE WITH NON-CYTOTOXIC WOUND CLEANSING AGENT AND PAT DRY WITH GAUZE. COVER WITH OPTIFOAM AND SECURE WITH TELFA AND TAPE NEEDED TO HOLD DRESSING IN PLACE. CHANGE DRESSING EVERY 2 DAYS AND PRN FOR DRESSING SOILAGE OR DISLODGMENT. DISCONTINUE WHEN WOUND IS HEALED. MAY ADD S PRN VISITS PER MONTH FOR WOUND COMPLICATIONS SUCH REDNESS, INCREASE IN DRAINAGE AND OR PAIN OR COMPROMISED DRESSING. CAREGIVER MAY PERFORM DRESSING CHANGE IN ABSENCE OF HOME HEALTH STAFF ONCE ABLE TO ACCURATELY RETURN DEMONSTRATE. PHYSICAL THERAPIST MAY ASSIST WITH WOUND CARE. SUTURES ARE DISSOLVABLE AND THE ONES THAT ARE NOT WILL BE REMOVED IN CLINIC BY SUREGEON AT FOLLOW UP APPT. ] Future Scheduled Test THE CER TIFYING PHYSICIAN, ASSOCIATED PHYSICIAN, NPP OR PA WITHIN THE SAME GROUP MAY APPROVE AND SIGN THE ORDER (ON ANY PAGE) ATTESTING THAT THE COMPREHENSIVE OUTCOME ASSESSMENTS, EVALUATIONS, AND HOME HEALTH CERTIFICATION PLANS SUPPORT HOMEBOUND STATUS. HOME HEALTH WEB-PORTAL DOCUMENTATION ACCESSED BY THE PHYSICIAN MUST BE INCORPORATED INTO THE MEDICAL RECORD TO CORROBORATE THE PHYSICIAN, NPP, OR PAS F2F ENCOUNTER TO SUPPORT ELIGIBILITY FOR HOME HEALTH SERVICES. [code = THE CERTIFYING PHYSICIAN, ASSOCIATED PHYSICIAN, NPP OR PA WITHIN THE SAME GROUP MAY APPROVE AND SIGN THE ORDER (ON ANY PAGE) ATTESTING THAT THE COMPREHENSIVE OUTCOME ASSESSMENTS, EVALUATIONS, AND HOME HEALTH CERTIFICATION PLANS SUPPORT HOMEBOUND STATUS. HOME HEALTH WEB-PORTAL DOCUMENTATION ACCESSED BY THE PHYSICIAN MUST BE INCORPORATED INTO THE MEDICAL RECORD TO CORROBORATE THE PHYSICIAN, NPP, OR PAS F2F ENCOUNTER TO SUPPORT ELIGIBILITY FOR HOME HEALTH SERVICES.] Future Scheduled Test EACH ORDER ED IN-HOME OR TELEHEALTH VISIT, THE SKILLED NURSE WILL CONDUCT A COMPREHENSIVE ASSESSMENT INCLUDING VITAL SIGNS, PAIN, SAFETY, MENTAL/COGNITIVE/PSYCHOSOCIAL STATUS, MED MANAGEMENT, NUTRITION, SKIN INTEGRITY, PRESSURE ULCER PREVENTION, AND PATIENT/CAREGIVER ABILITY TO SUPPORT ORDERED CARE. SKILLED NURSE WILL INSTRUCT ON DISEASE PROCESS, MED MGMT., FALL PREVENTION AND SAFETY, INFECTION CONTROL AND PREVENTION, WARNING SIGNS, ADDRESS RESULTS OUTSIDE OF ORDERED PARAMETERS LISTED ON CARE PLAN, AND COORDINATE DISCHARGE WITH THE TREATING PROVIDER. MAY ACCEPT ORDERS FROM THE FOLLOWING PROVIDER(S) WHO WILL BE CONSULTING ON THE CERTIFIED CARE PLAN: KIRA ROSADO ORTHOPEDIC SURGEON, STEPHEN FUENTES PCP AND ANYONE COVERING IN THEIR ABSENCE. [code = EACH ORDERED IN-HOME OR TELEHEALTH VISIT, THE SKILLED NURSE WILL CONDUCT A COMPREHENSIVE ASSESSMENT INCLUDING VITAL SIGNS, PAIN, SAFETY, MENTAL/COGNITIVE/PSYCHOSOCIAL STATUS, MED MANAGEMENT, NUTRITION, SKIN INTEGRITY, PRESSURE ULCER PREVENTION, AND PATIENT/CAREGIVER ABILITY TO SUPPORT ORDERED CARE. SKILLED NURSE WILL INSTRUCT ON DISEASE PROCESS, MED MGMT., FALL PREVENTION AND SAFETY, INFECTION CONTROL AND PREVENTION, WARNING SIGNS, ADDRESS RESULTS OUTSIDE OF ORDERED PARAMETERS LISTED ON CARE PLAN, AND COORDINATE DISCHARGE WITH THE TREATING PROVIDER. MAY ACCEPT ORDERS FROM THE FOLLOWING PROVIDER(S) WHO WILL BE CONSULTING ON THE CERTIFIED CARE PLAN: KIRA ROSADO ORTHOPEDIC SURGEON, STEPHEN FUENTES PCP AND ANYONE COVERING IN THEIR ABSENCE. ] Future Scheduled Test SKILLED NU RSE TO INSTRUCT PATIENT/CAREGIVER ON WHAT IS HYPERTENSION, HOW TO CHECK HIS/HER BLOOD PRESSURE, AND STRATEGIES TO USE TO CONTROL BLOOD PRESSURE SUCH MONITORING BP, MONITORING WEIGHTS, ENGAGING IN PHYSICAL ACTIVITY AIMING FOR 150 MINUTES SPREAD THROUGHOUT THE WEEK. [code = SKILLED NURSE TO INSTRUCT PATIENT/CAREGIVER ON WHAT IS HYPERTENSION, HOW TO CHECK HIS/HER BLOOD PRESSURE, AND STRATEGIES TO USE TO CONTROL BLOOD PRESSURE SUCH MONITORING BP, MONITORING WEIGHTS, ENGAGING IN PHYSICAL ACTIVITY AIMING FOR 150 MINUTES SPREAD THROUGHOUT THE WEEK.] Future Scheduled Test HOME HEALT H NURSE WILL ASSESS FOR COMPLICATIONS RELATED TO ANTICOAGULATION ANTIPLATELET USE AND INSTRUCT PATIENT/CAREGIVER ABOUT PRECAUTIONS TO FOLLOW AND SIGNS/SYMPTOMS TO REPORT. [code = HOME HEALTH NURSE WILL ASSESS FOR COMPLICATIONS RELATED TO ANTICOAGULATION ANTIPLATELET USE AND INSTRUCT PATIENT/CAREGIVER ABOUT PRECAUTIONS TO FOLLOW AND SIGNS/SYMPTOMS TO REPORT. ] Goal 2024-11-22 Patient Goal - SOC: GET STRONGER, BE ABLE TO START PUTTING WEIGHT ON LEG AGAIN Goal Patient Goal - SOC: GET STRONGER, BE ABLE TO START PUTTING WEIGHT ON LEG AGAIN 11/22/24 ANNMARIE: TO HEAL WOUND, TO REMAIN FREE FROM FALLS AND INFECTIONS. Goal Provider Goal - PATIENT/CAREGIVER WILL DEMONSTRATE APPROPRIATE INCISIONAL CARE. INCISION / SUTURE LINE IMPROVE EVIDENCED BY DECREASE IN SIZE / DRAINAGE OF WOUND, NO SIGNS AND SYMPTOMS OF INFECTION, DECREASED PAIN, HEALING IS PROGRESSING BY EOE Goal Provider Goal - A PLAN OF CARE WILL BE ESTABLISHED THAT MEETS ALL PATIENT'S USP NEEDS AND COUNTER SIGNED BY PHYSICIAN. Goal Provider Goal - PATIENT WILL BE FREE OF FALLS AND HOSPITALIZATIONS THROUGHOUT EPISODE OF CARE. PATIENT/CAREGIVER WILL UNDERSTAND AND ADHERE TO ORDERED DIET. PATIENT/CAREGIVER WILL INDEPENDENTLY MANAGE MEDICATIONS, UNDERSTAND ANY CHANGES, SIDE EFFECTS TO REPORT BY PATIENT AND CAREGIVER. PATIENT WILL BE FREE OF INFECTION AND UNDERSTAND MEASURES OF PREVENTION. PATIENT/CAREGIVER WILL COLLABORATE WITH SKILLED NURSE TO DEVELOP POC AT SOC AND ON AN ONGOING BASIS UPDATES ARE NEEDED. UNDERSTAND PROGRESS MADE/DISCHARGE PLANNING. ADDITIONAL ORDERS WILL BE RECEIVED FROM ALTERNATE PHYSICIANS IN A TIMELY MANNER. Goal Provider Goal - PATIENT/CAREGIVER WILL INDEPENDENTLY DEMONSTRATE HOW TO CHECK HIS/HER OWN BP AND VERBALIZE WHAT STRATEGIES CAN ASSIST TO CONTROL BLOOD PRESSURE. Goal Provider Goal - PATIENT/CAREGIVER WILL VERBALIZE UNDERSTANDING OF ANTICOAGULATION ANTIPLATELET COMPLICATIONS TO REPORT AND PRECAUTIONS TO FOLLOW BY END OF HOME HEALTH SERVICES. Progress Notes Progress Notes <paragraph>[Visit Date: 2024 by PEDRO SHIELDS REGISTERED NURSE SHIFT MGR]:</paragraph><paragraph>PTNT BEING SEEN BY SN FOR SURGICAL SITE INFECTION. SN ENTERED HOME TO FIND PTNT RESTING IN RECLINER WITH LEGS ELEVATED. PTNT CG PRESENT DURING VISIT. NO FALLS OR MED CHANGES. PTNT ANOX4, ACTIVELY PARTICIPATING IN CARE WITH PLEASANT AFFECT. COMPREHENSIVE ASSESSMENT COMPLETED. VSS, HR REG, LUNGS CTA, BSX4, ABD SOFT NONTENDER, BM'S NORMAL, LBM 11/21/24, +2 EDEMA BLE, +2 PEDAL PULSES. DENIES PAIN. PTNT DENIES, CHEST PAIN, FEVER, CHILLS, AND SOB. SKIN CHECK COMPLETED. PTNT HAS 2 LARGE SURGICAL INCISIONS TO RIGHT KNEE. SN INSTRUCTED PTNT ON NEW WOUND CARE INSTRUCTIONS. INSTRUCTED ON IV MED ADMINISTRATION AND S/S INFECTION TO WATCH FOR AT IV SITE. REMOVED OLD DRESSING PER CLEAN TECHNIQUE. THEN, PER STERILE TECHNIQUE, CLEANSED SITE WITH CHLORHEXIDINE GLUCONATE. ALLOWED TO AIR DRY. REPLACED STAT LOCK, COVERED WITH STERILE OCCLUSIVE DRESSING. CAPS AND EXTENSION TUBING CHANGED. LABS DRAWN PER LINE AFTER WASTING 10 ML AND TRANSPORTED IN BIOHAZARD BAG PTNT APT 11/26/24 DR. ROSADO, 11/28 DR. FUENTES (PCP), 12/25 [facility] HUMP[facility]REYS; 01/15 [facility]. PTNT STABLE AT DEPARTURE FROM HOME. PTNT/CG VERBALIZED UNDERSTANDING OF ALL EDUCATION PROVIDED. PTNT/CG DENY ADDITIONAL QUESTIONS/CONCERNS AND VERBALIZE SATISFACTION WITH CARE AT END OF VISIT.</paragraph> <paragraph>[Visit Date: 2024 by PEDRO SHIELDS REGISTERED NURSE SHIFT MGR]:</paragraph><paragraph>PTNT BEING SEEN BY SN FOR RIGHT TIBIA FX. ANNMARIE AFTER HOSPITAL STAY AT [facility] FROM 11/14-11/20. PTNT HAD 2 ID TO RIGHT LEG. SN GREETED AT DOOR BY PTNT . PTNT RESTING IN WHEELCHAIR. USED WALKER TO TRANSFER TO CHAIR FOR SNV. PTNT CG PRESENT DURING VISIT. PTNT ANOX4, ACTIVELY PARTICIPATING IN CARE WITH PLEASANT AFFECT. COMPREHENSIVE ASSESSMENT COMPLETED. VSS, HR REG, LUNGS CTA, BSX4, ABD SOFT NONTENDER, BM'S NORMAL, LBM 11/21/24, +2 EDEMA BLE, +2 PEDAL PULSES. PAIN 11/24 RIGHT KNEE. PTNT DENIES, CHEST PAIN, FEVER, CHILLS, AND SOB. SKIN CHECK COMPLETED. PTNT HAS 2 LARGE SURGICAL INCISIONS TO RIGHT KNEE. PREVANA WOUND VAC IN PLACE, ORDERS TO REMOVE ON 11/24. LUE MIDLINE PLACED ON 11/20/24 FOR IV CEFEPIME Q8H. SN INSTRUCTED PTNT ON HOME SAFETY, FALL PREVENTION, INFECTION CONTROL. MED REVIEW COMPLETED. PTNT STARTED ON CEFEPIME, SALINE FLUSH, HEPARIN FLUSH, AND OXYCODONE IR. MEDS STOPPED: LOSARTAN, HCTZ, DOCUSATE, PERCOCET, TYLENOL, CLINDAMYCIN, FLEXERIL, AND SENNA. PTNT/CG VERBALIZED UNDERSTANDING. INSTRUCTED ON ADEQUATE NUTRITION AND HYDRATION FOR WOUND HEALING. PTNT APT 11/26/24 DR. ROSADO, 12/25 [facility] HUMPHREYS; 01/15 [facility] GI. PTNT STABLE AT DEPARTURE FROM HOME. PTNT/CG VERBALIZED UNDERSTANDING OF ALL EDUCATION PROVIDED. PTNT/CG DENY ADDITIONAL QUESTIONS/CONCERNS AND VERBALIZE SATISFACTION WITH CARE AT END OF VISIT.</paragraph> Encounters Start Date/Time End Date/Time Encounter Type Admission Type Attending Clinicians [facility] Facility Care Department Encounter ID Discharge Date Discharge Status Discharge Condition Discharge Reason Percent Goals Met 2024-10-15 00:00:00 2024-12-13 00:00:00 Outpatient PEDRO VIVAS [facility] [id number]
--- OUTSIDE RECORDS SUMMARY | 2024-11-24 17:18 | XMS_ITS | Patient Health Summary ---
Author Organization [facility] Address [address] [place] [address] Care Team Providers Care Operator Bearer Systems Name Role Phone Balaji Rodriguezdie Nadja DO Primary Care Provider [phone] Note from [facility] [place] [facility] [place]non-owned Affiliates and Associated Physician Practices is amultiple site organization consisting of ambulatory clinics and hospital sitesin [place], [place], [place] and [place]. This disclosure is being madepursuant to the Care Everywhere program and may not contain all information available regarding this patient. Last updated 18.[facility] Allergies * Meperidine(Urticaria) -Medium Criticality * Nickel(Other) -Low Criticality * Skin Adhesives(Rash) -Medium Criticality * Sulfa Drugs(Rash,Other) -Medium Criticality * Aspirin(Other) -Medium Criticality,Inactive Medications * Be aware that medications may not be up to date on this document. Alwaysverify current medications with the patient. * omeprazole (PRILOSEC) 40 MG capsule(Started 12/29/2020) Take 1 (one) capsule by mouth once daily * atorvastatin (LIPITOR) 20 MG tablet(Started 04/26/2021) Take 1 (one) tablet by mouth once daily * amLODIPine (Norvasc) 5 MG tablet Take 1 (one) tablet by mouth once daily Reasons: High Blood Pressure * vitamin D3 (Cholecalciferol) 25 MCG (1000 UNITS) tablet(Started 09/23/2024) Take 1 (one) tablet by mouth once daily * famotidine (Pepcid) 40 MG tablet(Started 10/13/2024) Take 1 (one) tablet by mouth at bedtime for 60 days 2 refills by 10/13/2025 * Gauze Pads & Dressings ([place] Dressings) 4 X14 PADS(Started 10/13/2024) Use 1 Pad every 2 days * Gauze Pads & Dressings (Gauze Dressing) 4 X4 PADS(Started 10/13/2024) Dry gauze, nonadherent. 2 refills by 10/13/2025 * gabapentin (Neurontin) 300 MG capsule(Started 11/07/2024) Take 1 (one) capsule by mouth 3 times daily 1 refill by 11/07/2025 * oxyCODONE, immediate release, (Roxicodone) 5 MG tablet(Started 11/20/2024) Take 1 (one) tablet by mouth every 4 hours as needed * aspirin (Aspirin) 325 MG tablet(Started 11/20/2024) Take 1 (one) tablet by mouth 2 times daily * cefepime (Maxipime) injection(Started 11/20/2024) 2,000 (two thousand) mg by Intravenous route every 8 hours for 11 days Ended Medications* losartan (COZAAR) 100 MG tablet(Started 12/29/2020) (Discontinued) Take 1 (one) tablet by mouth once daily * hydroCHLOROthiazide (Hydrodiuril) 25 MG tablet(Discontinued) Take 1 (one) tablet by mouth once daily Reasons: High Blood Pressure * polyethylene glycol (Golytely) 236 g solution(Started 05/15/2024)(Discontinued) Drink 1/2 of prep at 5pm the night before test. Finish the prep at 5am the day of test. * acetaminophen (Tylenol) 500 MG tablet(Started 09/22/2024)(Discontinued) Take 2 (two) tablets by mouth every 6 hours Maximum allowable Acetaminophen amount = 4 Grams (4000 mg) / 24 hours. 2 refills by 09/22/2025 * docusate sodium (Colace) 100 MG capsule(Started 09/22/2024)(Discontinued) Take 1 (one) capsule by mouth 2 times daily 1 refill by 09/22/2025 * sennosides (Senokot) 8.6 MG tablet(Started 09/23/2024)(Discontinued) Take 1 (one) tablet by mouth once daily 1 refill by 09/22/2025 * cyclobenzaprine (Flexeril) 5 MG tablet(Started 09/22/2024)(Discontinued) Take 1 (one) tablet by mouth 3 times daily as needed 1 refill by 09/22/2025 * aspirin (Aspirin) 325 MG tablet(Started 09/22/2024)(Discontinued) Take 1 (one) tablet by mouth 2 times daily * oxyCODONE, immediate release, (Roxicodone) 5 MG tablet(Started 10/13/2024) (Discontinued) Take 1 (one) tablet by mouth every 6 hours as needed for Pain * clindamycin (Cleocin) 300 MG capsule(Started 10/22/2024)() Take 1 (one) capsule by mouth 4 times daily for 14 days * oxyCODONE-acetaminophen (Percocet) 5-325 MG tablet(Started 10/22/2024) (Discontinued) Take 1 (one) tablet by mouth every 6 hours as needed for Pain * clindamycin (Cleocin) 300 MG capsule(Started 11/12/2024)(Discontinued) Take 1 (one) capsule by mouth 4 times daily for 14 days * oxyCODONE-acetaminophen (Percocet) 5-325 MG tablet(Started 11/12/2024) (Discontinued) Take 1 (one) tablet by mouth every 6 hours as needed for Pain * cefepime (Maxipime) injection(Started 11/20/2024)(Discontinued) 2,000 (two thousand) mg by Intravenous route every 8 hours for 11 days Active Problems Problem Noted Date Diagnosed Date Closed fracture of right tib ia and fibula, initial encounter 09/19/2024 Primary osteoarthritis of right ankle 06/13/2021 UMA positive 05/26/2021 Arthralgia of right ankle 03/15/2021 Fracture of lateral malleolu s of right fibula at syndesmosis Plantar fasciitis Immunizations * Covid Moderna primary monovalent 12+ yr 0.5mL(Given 01/26/2021, 12/15/2020) * ZOSTER HISTORIC VACCINE(Given 06/27/2023) Social History Tobacco Use Types Packs/Day Years [...] Recorded Patient Health Questionnaire-2 Score 3 11/20/2024 [facility] - Occupational Stress Questionnaire Answer Date Recorded [...] any time in the past 12 m [facility], were you homeless or living in a care home (including now)? No 11/15/2024 Sex and Gender Information Value Date Recorded Sex Assigned at Female 06/03/2023 3:57 PM CDT Gender Identity Female 06/03/2023 3:57 PM CDT Sexual Orientation Not on file Last Filed Vital Signs Vital Sign Reading Time Taken Comments Blood Pressure 142/80 11/20/2024 4:08 PM SPOT MACHINE OPERATOR Pulse 68 11/20/2024 4:08 PM SPOT MACHINE OPERATOR Temperature 36.7 C (98 F) 11/20/2024 4:08 PM SPOT MACHINE OPERATOR Respiratory Rate 18 11/20/2024 4:08 PM SPOT MACHINE OPERATOR Oxygen Saturation 98% 11/20/2024 4:08 PM SPOT MACHINE OPERATOR Inhaled Oxygen Concentration 40% 10/10/2024 1 2:23 PM SPOT MACHINE OPERATOR Weight 89.4 kg (197 lb) 11/14/2024 2:06 PM SPOT MACHINE OPERATOR Height 167.6 cm (5' 6 ) 11/14/2024 2:06 PM SPOT MACHINE OPERATOR Body Mass Index 31.8 11/14/2024 2:06 PM SPOT MACHINE OPERATOR Medical Devices Implanted Type Area Hydrogen Operator Device Identifier Shelf Expiration Date Model / Serial / Lot Screw 3.5mm 50mm 2.5mm Slf-Tap Sm Hex Implanted:Qty : 1 on 03/15/2021 by Sukumar Magaña DO at [facility] Right: [employer] [id number] / / Screw 3.5mm 55mm 2.5mm Slf-Tap Sm Hex Implanted:Qty : 1 on 03/15/2021 by Sukumar Magaña DO at [facility] Right: [employer] [id number] / / Plate 2 Hl 2 Comp Colr 25mm /3 Tblr Implanted:Qty : 1 on 03/15/2021 by Sukumar Magaña DO at [facility] Right: Tibia [employer] [id number] / / Sub Bngf 4.8mm Ostst Ca Slf Pelt Implanted:Qty : 1 on 03/15/2021 by Sukumar Magaña DO at [facility] [employer] [id number] / / [id number] Screw 4.7mm 5.6mm 36mm 2.5mm Ft Va Lopro Implanted:Qty : 2 on 10/10/2024 by Daryn North MD at [facility] Right: Tibia [employer] 11/26/2033 [id number] / / [id number] Screw 4.7mm 5.6mm 28mm 2.5mm Ft Va Lopro Implanted:Qty : 1 on 10/10/2024 by Daryn North MD at [facility] Right: Tib[employer] 03/12/2032 [id number] / / [id number] Screw 4.7mm 5.6mm 32mm 2.5mm Ft Va Lopro Implanted:Qty : 1 on 10/10/2024 by Daryn North MD at [facility] Right: Tibia [employer] [id number] 10/19/2030 [id number] / / [id number] Agent Hmst Thrmb Kt Surgiflo 2ml Implanted:Qty : 2 on 10/10/2024 by Daryn North MD at [facility] Right: Tibia [employer] [id number] / / Screw 3.5mm 26mm Slf-Tap Cortx Evos Strl Implanted:Qty : 1 on 10/10/2024 by Daryn North MD at [facility] Right: [employer] [id number] / / Screw 3.5mm 32mm Slf-Tap Cortx Evos Strl Implanted:Qty : 1 on 10/10/2024 by Daryn North MD at [facility] Right: [employer] [id number] / / Screw 3.5mm 34mm Slf-Tap Cortx Evos Strl Implanted:Qty : 1 on 10/10/2024 by Daryn North MD at [facility] Right: [employer] [id number] / / Screw 3.5mm 15mm Slf-Tap Lck Evos Strl Implanted:Qty : 1 on 10/10/2024 by Daryn North MD at [facility] Right: [employer] [id number] / / Plate 9 Hl Va Lck Fib Lt Dist 125mm Implanted:Qty : 1 on 10/10/2024 by Daryn North MD at [facility] Right: [employer] [id number] / / Screw 3.5mm 32mm Ft Slf-Tap Hex Lopro Implanted:Qty : 1 on 10/10/2024 by Daryn North MD at [facility] Right: [employer] [id number] / / Screw 3.5mm 60mm T15 Lck Slf-Tap Tip Tpr Implanted:Qty : 1 on 10/10/2024 by Daryn North MD at [facility] Right: [employer] [id number] / / Screw 3.5mm 65mm T15 Lck Slf-Tap Tip Tpr Implanted:Qty : 3 on 10/10/2024 by Daryn North MD at [facility] Right: [employer] [id number] / / Screw 3.5mm 70mm T15 Lck Slf-Tap Tip Tpr Implanted:Qty : 1 on 10/10/2024 by Daryn North MD at [facility] Right: [employer] [id number] / / Plate 9 Hl Lck Lopro Dist Blt Tip Tib Rt Implanted:Qty : 1 on 10/10/2024 by Daryn North MD at [facility] Right: [employer] [id number] / / Screw 3.5mm 75mm T15 Lck Slf-Tap Tip Tpr Implanted:Qty : 2 on 10/10/2024 by Daryn North MD at [facility] Right: [employer] [id number] / / Screw 3.5mm 40mm Ft Slf-Tap Hex Lopro Implanted:Qty : 1 on 10/10/2024 by Daryn North MD at [facility] Right: [employer] [id number] / / Screw 3.5mm 20mm T15 Slf-Tap Lck Tpr Implanted:Qty : 1 on 10/10/2024 by Daryn North MD at [facility] Right: [employer] [id number] / / Cmnt Bone Smpx Ptbr Fd Radopq Prebl Implanted:Qty : 1 on 11/17/2024 by Daryn North MD at [facility] Right: Knee [employer] 01/12/2026 [id number] / / [id number] Bone Void 10cc 20cc Ca Slf Stimulan Implanted:Qty : 1 on 11/17/2024 by Daryn North MD at [facility] Right: Knee [employer] 07/14/2027 620-010 / / [id number] Explanted Type Area Hydrogen Operator Device Identifier Shelf Expiration Date Model / Serial / Lot Wire K 2mm 150mm 1 End Troc Pnt Ss Sm Explanted:Qty: 1 on 03/15/2021 by Sukumar Magaña DO at [facility] Right: [employer] [id number] / / Screw 3.5mm 60mm 2.5mm Slf-Tap Sm Hex Explanted:Qty: 1 on 03/15/2021 by Sukumar Magaña DO at [facility] Right: [employer] [id number] / / Cplng Extfix Hfmn 3 Nikhil To Nikhil Salomón Explanted:Qty: 4 on 09/19/2024 by Marifre Saeed MD at [facility] Right: Tibia [employer] 4922-1-010 / / Screw 3.5mm 38mm Slf-Tap Cortx Evos Strl Explanted:Qty: 1 on 10/10/2024 by Daryn North MD at [facility] Right: [employer] [id number] / / Screw 3.5mm 42mm Slf-Tap Cortx Evos Strl Explanted:Qty: 1 on 10/10/2024 by Daryn North MD at [facility] Right: [employer] [id number] / / Wire K 1.6mm 150mm Troc Pnt Ss Fx Strl Explanted:Qty: 1 on 10/10/2024 by Daryn North MD at [facility] Right: [employer] [id number] / / Plate 11 Hl Va Lck Lopro Fib Lt Dist Lat Explanted:Qty: 1 on 10/10/2024 by Daryn North MD at [facility] Right: Tib[employer] [id number] / / Wire K 1.6mm 6in Hlf Bynt Pnt Ss Fx Explanted:Qty: 3 on 10/10/2024 by Daryn North MD at [facility] Right: [employer] [id number] / / Pin Hlf 180mm 5mm Apx Hfmn2 Canc Ss Implanted:Qty: 2 on 09/19/2024 by Marifer Saeed MD at [facility] Explanted:Qty: 2 on 10/10/2024 by Daryn North MD at [facility] Right: [employer] [id number] / / Pin Hlf 200mm 5mm Apx Hfmn2 Orth Ss Thrd Implanted:Qty: 2 on 09/19/2024 by Marifer Saeed MD at [facility] Explanted:Qty: 2 on 10/10/2024 by Daryn North MD at [facility] Right: [employer] 5018-6-200 / / Procedures * GLUCOSE - POINT OF CARE(Performed 11/20/2024) * GLUCOSE - POINT OF CARE(Performed 11/20/2024) * BASIC METABOLIC PANEL (CALCIUM TOTAL)(Performed 11/20/2024) * HEPATITIS C AB SCREEN RFLX NAAT QUANT(Performed 11/20/2024) * HIV-1 HIV-2 ANTIBODY + HIV P24 AG PANEL(Performed 11/20/2024) * HEPATITIS SCREEN ACUTE(Performed 11/20/2024) * CBC W/O DIFFERENTIAL(Performed 11/20/2024) * GLUCOSE - POINT OF CARE(Performed 11/19/2024) * GLUCOSE - POINT OF CARE(Performed 11/19/2024) * HEMOGLOBIN(Performed 11/19/2024) * GLUCOSE - POINT OF CARE(Performed 11/19/2024) * TRANSFUSE RED BLOOD CELL LEUKOREDUCED UNIT(S)(Performed 11/19/2024) * PREPARE RBC LEUKOREDUCED UNIT(Performed 11/19/2024) * GLUCOSE - POINT OF CARE(Performed 11/19/2024) * TYPE + SCREEN PANEL(Performed 11/19/2024) * HEPATIC FUNCTION PANEL(Performed 11/19/2024) * CBC W/O DIFFERENTIAL(Performed 11/19/2024) * BASIC METABOLIC PANEL (CALCIUM TOTAL)(Performed 11/19/2024) * GLUCOSE - POINT OF CARE(Performed 11/18/2024) * GLUCOSE - POINT OF CARE(Performed 11/18/2024) * GLUCOSE - POINT OF CARE(Performed 11/18/2024) * EKG 12-LEAD(Performed 11/18/2024) Performed for Closed fracture of right tibia and fibula, initial encounter * GLUCOSE - POINT OF CARE(Performed 11/18/2024) * CBC W/O DIFFERENTIAL(Performed 11/18/2024) * BASIC METABOLIC PANEL (CALCIUM TOTAL)(Performed 11/18/2024) * GLUCOSE - POINT OF CARE(Performed 11/17/2024) * GLUCOSE - POINT OF CARE(Performed 11/17/2024) * VAS BILATERAL VENOUS DUPLEX LE(Performed 11/17/2024) Performed for Closed fracture of right tibia and fibula, initial encounter * GLUCOSE - POINT OF CARE(Performed 11/17/2024) * CULTURE ANAEROBE(Performed 11/17/2024) * CULTURE WOUND+GRAM STAIN(Performed 11/17/2024) * CULTURE ANAEROBE(Performed 11/17/2024) * CULTURE WOUND+GRAM STAIN(Performed 11/17/2024) * ENDOTRACHEAL TUBE NOTE(Performed 11/17/2024) * DE EXPLORE WOUND,EXTREMITY(Performed 11/17/2024) Performed for Injury of right knee, initial encounter * CBC W/O DIFFERENTIAL(Performed 11/17/2024) * BASIC METABOLIC PANEL (CALCIUM TOTAL)(Performed 11/17/2024) * GLUCOSE - POINT OF CARE(Performed 11/16/2024) * GLUCOSE - POINT OF CARE(Performed 11/16/2024) * URINALYSIS REFLEX TO MICROSCOPIC NO CULTURE(Performed 11/16/2024) * PROTEIN URINE RANDOM QUANTITATIVE(Performed 11/16/2024) * UREA NITROGEN URINE RANDOM(Performed 11/16/2024) * CREATININE URINE RANDOM(Performed 11/16/2024) * SODIUM URINE RANDOM(Performed 11/16/2024) * GLUCOSE - POINT OF CARE(Performed 11/16/2024) * GLUCOSE - POINT OF CARE(Performed 11/16/2024) * CBC W/O DIFFERENTIAL(Performed 11/16/2024) * BASIC METABOLIC PANEL (CALCIUM TOTAL)(Performed 11/16/2024) * GLUCOSE - POINT OF CARE(Performed 11/15/2024) * GLUCOSE - POINT OF CARE(Performed 11/15/2024) * GLUCOSE - POINT OF CARE(Performed 11/15/2024) * GLUCOSE - POINT OF CARE(Performed 11/15/2024) * VITAMIN D 25-HYDROXY(Performed 11/15/2024) * FERRITIN(Performed 11/15/2024) * IRON + TRANSFERRIN PANEL(Performed 11/15/2024) * VITAMIN B12(Performed 11/15/2024) * FOLATE(Performed 11/15/2024) * CBC W/O DIFFERENTIAL(Performed 11/15/2024) * BASIC METABOLIC PANEL (CALCIUM TOTAL)(Performed 11/15/2024) * GLUCOSE - POINT OF CARE(Performed 11/14/2024) * GLUCOSE - POINT OF CARE(Performed 11/14/2024) * COMPREHENSIVE METABOLIC PANEL(Performed 11/14/2024) * HEMOGLOBIN A1C(Performed 11/14/2024) * PT EVAL AND TREAT ORTHO/TRAUMA(Performed 11/14/2024) * OT EVAL AND TREAT ORTHO/TRAUMA(Performed 11/14/2024) * CULTURE ANAEROBE(Performed 11/14/2024) * CULTURE WOUND+GRAM STAIN(Performed 11/14/2024) * CULTURE ANAEROBE(Performed 11/14/2024) * CULTURE WOUND+GRAM STAIN(Performed 11/14/2024) * CULTURE ANAEROBE(Performed 11/14/2024) * CULTURE WOUND+GRAM STAIN(Performed 11/14/2024) * ENDOTRACHEAL TUBE NOTE(Performed 11/14/2024) * DE RENE SUBQ TISSUE 20 SQ CM/<(Performed 11/14/2024) Performed for Surgical site infection * CBC W AUTO DIFFERENTIAL(Performed 11/14/2024) Performed for Arthralgia of right ankle * TYPE + SCREEN PANEL(Performed 11/14/2024) * XR WRIST LEFT 3VW OR MORE(Performed 11/12/2024) Performed for Closed fracture of left wrist, initial encounter * XR TIBIA FIBULA RIGHT 2VW(Performed 11/12/2024) Performed for Closed fracture of lateral portion of right tibial plateau, initial encounter * XR TIBIA FIBULA RIGHT 2VW(Performed 10/22/2024) Performed for Closed fracture of lateral portion of right tibial plateau, initial encounter * CBC W/O DIFFERENTIAL(Performed 10/13/2024) Performed for Closed fracture of right tibia and fibula, initial encounter * BASIC METABOLIC PANEL (CALCIUM TOTAL)(Performed 10/13/2024) Performed for Closed fracture of right tibia and fibula, initial encounter * CBC W/O DIFFERENTIAL(Performed 10/12/2024) Performed for Closed fracture of right tibia and fibula, initial encounter * BASIC METABOLIC PANEL (CALCIUM TOTAL)(Performed 10/12/2024) Performed for Closed fracture of right tibia and fibula, initial encounter * CBC W/O DIFFERENTIAL(Performed 10/11/2024) Performed for Closed fracture of right tibia and fibula, initial encounter * BASIC METABOLIC PANEL (CALCIUM TOTAL)(Performed 10/11/2024) Performed for Closed fracture of right tibia and fibula, initial encounter * XR TIBIA FIBULA RIGHT 2VW(Performed 10/10/2024) Performed for Closed fracture of right tibia and fibula, initial encounter * FL BARBY SURGERY(Performed 10/10/2024) Performed for Closed fracture of right tibia and fibula, initial encounter * PERIPHERAL IV NOTE(Performed 10/10/2024) * ENDOTRACHEAL TUBE NOTE(Performed 10/10/2024) * DE OPEN RX BILAT TIB PLAT FX(Performed 10/10/2024) Performed for Closed fracture of lateral portion of right tibial plateau, initial encounter * TYPE + SCREEN PANEL(Performed 10/10/2024) * CBC W/O DIFFERENTIAL(Performed 09/23/2024) Performed for Closed fracture of right tibia and fibula, initial encounter * BASIC METABOLIC PANEL (CALCIUM TOTAL)(Performed 09/23/2024) Performed for Closed fracture of right tibia and fibula, initial encounter * CBC W/O DIFFERENTIAL(Performed 09/22/2024) Performed for Closed fracture of right tibia and fibula, initial encounter * BASIC METABOLIC PANEL (CALCIUM TOTAL)(Performed 09/22/2024) Performed for Closed fracture of right tibia and fibula, initial encounter * XR KNEE RIGHT 2VW OR LESS(Performed 09/21/2024) Performed for Closed fracture of right tibia and fibula, initial encounter * CBC W/O DIFFERENTIAL(Performed 09/21/2024) Performed for Closed fracture of right tibia and fibula, initial encounter * BASIC METABOLIC PANEL (CALCIUM TOTAL)(Performed 09/21/2024) Performed for Closed fracture of right tibia and fibula, initial encounter * CBC W/O DIFFERENTIAL(Performed 09/20/2024) Performed for Closed fracture of right tibia and fibula, initial encounter * BASIC METABOLIC PANEL (CALCIUM TOTAL)(Performed 09/20/2024) Performed for Closed fracture of right tibia and fibula, initial encounter * FL BARBY SURGERY(Performed 09/19/2024) Performed for Closed fracture of right tibia and fibula, initial encounter * PERIPHERAL IV NOTE(Performed 09/19/2024) * ENDOTRACHEAL TUBE NOTE(Performed 09/19/2024) * DE CLOSED RX TIBIA SHAFT FX(Performed 09/19/2024) Performed for Closed fracture of right tibial plateau, initial encounter * VITAMIN D 25-HYDROXY(Performed 09/19/2024) Performed for Closed fracture of right tibia and fibula, initial encounter, Disorder of bone * CBC W/O DIFFERENTIAL(Performed 09/19/2024) Performed for Closed fracture of right tibia and fibula, initial encounter * COMPREHENSIVE METABOLIC PANEL(Performed 09/19/2024) * PT EVAL AND TREAT ORTHO/TRAUMA(Performed 09/19/2024) * OT EVAL AND TREAT ORTHO/TRAUMA(Performed 09/19/2024) * CT TIBIA FIBULA RIGHT WO CONT(Performed 09/19/2024) Performed for Right leg pain * CT KNEE RIGHT WO CONTRAST(Performed 09/19/2024) Performed for Right leg pain * XR FOOT RIGHT 3VW OR MORE(Performed 09/19/2024) Performed for Right leg pain * TYPE + SCREEN PANEL(Performed 09/18/2024) * CBC W AUTO DIFFERENTIAL(Performed 09/18/2024) * XR KNEE RIGHT 2VW OR LESS(Performed 09/18/2024) Performed for Right leg pain * XR TIBIA FIBULA RIGHT 2VW(Performed 09/18/2024) Performed for Right leg pain * US ABDOMEN LIMITED(Performed 07/01/2024) Performed for Pain of upper abdomen * HEPATIC FUNCTION PANEL(Performed 06/04/2024) Performed for Pain of upper abdomen * PATHOLOGY TISSUE(Performed 05/30/2024) Performed for Gastroesophageal reflux disease, unspecified whether esophagitis present, Screen for colon cancer * EGD(Performed 05/30/2024) * ENDOSCOPY, COLON, SCREENING(Performed 05/30/2024) * DE COLOREC CANC SCRN,SCOPY NOT HI RISK(Performed 05/30/2024) Performed for Gastroesophageal reflux disease, unspecified whether esophagitis present, Screen for colon cancer * DE ED EGD FLEX TRANSORAL DX(Performed 05/30/2024) Performed for Gastroesophageal reflux disease, unspecified whether esophagitis present, Screen for colon cancer * XR FOOT LEFT WT BEARING 3VW(Performed 03/13/2024) Performed for Orthopedic aftercare * XR ANKLE LEFT 3VW OR MORE(Performed 03/13/2024) Performed for Orthopedic aftercare * DE INCISE FINGER TENDON SHEATH(Performed 09/20/2022) Performed for Primary osteoarthritis of first carpometacarpal joint of right hand * PROC INJECTION JOINT (SMALL/INTERMED/MAJOR)(Performed 03/19/2022) Performed for Primary osteoarthritis of first carpometacarpal joint of right hand * PROC INJECTION TENDON OR LIGAMENT(Performed 03/19/2022) Performed for Trigger finger of right thumb * XR HAND RIGHT 3VW OR MORE(Performed 03/16/2022) Performed for Right hand pain * XR ANKLE RIGHT 3VW OR MORE(Performed 07/18/2021) Performed for Primary osteoarthritis of right ankle * XR ANKLE RIGHT 3VW OR MORE(Performed 06/13/2021) Performed for Arthralgia of right ankle * XR ANKLE RIGHT 3VW OR MORE(Performed 05/09/2021) Performed for Primary osteoarthritis of right ankle * XR ANKLE RIGHT 3VW OR MORE(Performed 03/28/2021) Performed for Arthralgia of right ankle, Primary osteoarthritis of right ankle * BASIC METABOLIC PANEL (CALCIUM TOTAL)(Performed 03/16/2021) Performed for Arthralgia of right foot * CBC W/O DIFFERENTIAL(Performed 03/16/2021) Performed for Arthralgia of right foot * XR ANKLE RIGHT 3VW OR MORE(Performed 03/15/2021) Performed for Arthralgia of right foot * PT EVAL AND TREAT ORTHO/TRAUMA(Performed 03/15/2021) * OT EVAL AND TREAT ORTHO/TRAUMA(Performed 03/15/2021) * FL BARBY SURGERY(Performed 03/15/2021) Performed for Arthralgia of right foot * DE OPEN RX TIBIA SHAFT FX,SCREWS(Performed 03/15/2021) Performed for Gastrocnemius equinus of right lower extremity, Primary osteoarthritis of right ankle * DE GASTROCNEMIUS RECESSION(Performed 03/15/2021) Performed for Gastrocnemius equinus of right lower extremity, Primary osteoarthritis of right ankle * ENDOTRACHEAL TUBE NOTE(Performed 03/15/2021) * PERIPHERAL BLOCK(Performed 03/15/2021) * PERIPHERAL BLOCK(Performed 03/15/2021) * BLOOD TYPE VERIFICATION(Performed 03/15/2021) * TYPE + SCREEN PANEL(Performed 03/15/2021) * XR ANKLE RIGHT 3VW OR MORE(Performed 02/14/2021) Performed for Arthralgia of right ankle Results * GLUCOSE - POINT OF CARE (11/20/2024 1:30 PM SPOT MACHINE OPERATOR) Only the most recent of23 resultswithin the time period is included. [facility] Glucose WB/POC 95 70 - 99 mg/dL 11/20/2024 4:55 PM SPOT MACHINE OPERATOR [facility] Specimen Type Cap Fingerstick 2024 4:55 PM [facility] Blood BLOOD SPECIMEN / Unknown 11/20/2024 1:30 PM SPOT MACHINE OPERATOR 11/20/2024 4:55 PM SPOT MACHINE OPERATOR Daryn North MD LAB - POINT OF CARE ORDERABLES [facility] [address] [place] [id number], [facility] [phone] * (ABNORMAL) BASIC METABOLIC PANEL (CALCIUM TOTAL) (11/20/2024 12:49 AM SPOT MACHINE OPERATOR) Only the most recent of14 resultswithin the time period is included. [facility] BUN 26 7 - 26 mg/dL 11/20/2024 1:59 AM [facility] Creatinine 0.98(H) 0.56 - 0.96 mg/dL 11/20/2024 1:59 AM [facility] Sodium 143 136 - 145 mmol/L 11/20/2024 1:59 AM [facility] Potassium 3.8 3.5 - 4.5 mmol/L 11/20/2024 1:59 AM [facility] Chloride 113(H) 98 - 107 mmol/L 11/20/2024 1:59 AM [facility] CO2 22 22 - 29 mmol/L 11/20/2024 1:59 AM [facility] Glucose 95 70 - 99 mg/dL 11/20/2024 1:59 AM [facility] Calcium 8.9 8.4 - 10.2 mg/dL 11/20/2024 1:59 AM [facility] Anion Gap 8 6 - 16 11/20/2024 1:59 AM [facility] BUN/Creatinine Ratio 27(H) 7 - 23 11/20/2024 1:59 AM [facility] Osmolality Calculated 301(H) 275 - 295 mOsm/kg 11/20/2024 1:59 AM [facility] eGFR by CKD-EPI 64(L) >=90 mL/min/1.7 3 m2 11/20/2024 1:59 AM [facility] Blood BLOOD SPECIMEN / Unknown Lab Venipuncture / Unknown 11/20/2024 12:49 AM SPOT MACHINE OPERATOR 11/20/2024 1:28 AM [facility] Daryn North MD LAB - CHEMISTRY ORDE [facility] Organization Address City/State/ZIP Co de Phone Number [facility] [address] [place] [phone], [facility] [phone] * HEPATITIS C AB SCREEN RFLX NAAT QUANT (11/20/2024 12:48 AM [facility]) Hepatitis C Antibody Non-react juju Non-reac tive 11/20/2024 2:21 AM [facility] Comment: Hepatitis C Antibody screen indicates [...] Lab Venipuncture / Unknown 11/20/2024 12:48 AM SPOT MACHINE OPERATOR 11/20/2024 1:18 AM SPOT MACHINE OPERATOR Cathie Reyes MD LAB - CHEMISTRY [place]ONG JENS[place] [address] [address], [facility] [phone] * HIV-1 HIV-2 ANTIBODY + HIV P24 AG PANEL (11/20/2024 12:48 AM SPOT MACHINE OPERATOR) Pathologist [facility] HIV Antigen/Antibod y 1 & 2 Non-reacti ve Non-react juju 11/20/2024 2:21 AM [facility] Comment:No Laboratory eviden ce of HIV infection. Blood BLOOD SPECIMEN / Unknown Lab Venipuncture / Unknown 11/20/2024 12:48 AM SPOT MACHINE OPERATOR 11/20/2024 1:18 AM SPOT MACHINE OPERATOR Cathie Reyes MD LAB - CHEMISTRY KONG JENSEN Performing Organization Address City/[facility]/ZIP Co de Phone Number [address] [address], [facility] [phone] * (ABNORMAL) CBC W/O DIFFERENTIAL (11/20/2024 12:48 AM SPOT MACHINE OPERATOR) Only the most recent of15 resultswithin the time period is included. Pathologist [facility] WBC 7.7 4.0 - 10.7 x10E9/L 11/20/2024 1:35 AM [facility] RBC Count 2.88(L) 3.90 - 5.20 x10E12/L 11/20/2024 1:35 AM [facility] Hemoglobin 8.0(L) 11.9 - 15.8 g/dL 11/20/2024 1:35 AM [facility] Hematocrit 24.5(L) 34.8 - 46.1 % 11/20/2024 1:35 AM [facility] MCV 85.1 80.0 - 98.0 fL 11/20/2024 1:35 AM [facility] MCH 27.8 26.7 - 33.6 pg 11/20/2024 1:35 AM [facility] MCHC 32.7 31.7 - 36.3 g/dL 11/20/2024 1:35 AM [facility] RDW-CV 15.9(H) 11.3 - 14.8 % 11/20/2024 1:35 AM [facility] Platelet Count 269 150 - 420 x10E9/L 11/20/2024 1:35 AM [facility] MPV 11.4 7.8 - 11.4 fL 11/20/2024 1:35 AM [facility] NRBC 0.3(H) <=0.0 /100 WBC 11/20/2024 1:35 AM [facility] Blood BLOOD SPECIMEN / Unknown Lab Venipuncture / Unknown 11/20/2024 12:48 AM SPOT MACHINE OPERATOR 11/20/2024 1:18 AM [facility] Daryn North MD LAB - HEMATOLOGY ORD ERABLES [facility] [address] [place] [address], [facility] [phone] * HEPATITIS SCREEN ACUTE (11/20/2024 12:48 AM SPOT MACHINE OPERATOR) Pathologist [facility] Hepatitis A Virus Antibody IgM Non-react juju Non-reac tive 11/20/2024 2:21 AM [facility] Hepatitis B Virus Surface Antigen Non-react juju Non-reac tive 11/20/2024 2:21 AM [facility] Hepatitis B Core Virus Antibody IgM Non-react juju Non-reac tive 11/20/2024 2:21 AM [facility] Hepatitis C Antibody Non-react juju Non-reac tive 11/20/2024 2:21 AM [facility] Comment:Hepatitis C Antibody screen indicates no serologic evidence of past or current infection with Hepatitis C Virus. Patients with unexplained liver disease who are immunocompromised or suspected of having acute Hepatitis C infection may benefit from Nucleic Acid Test (KATIUSKA) for Hepatitis C Viral RNA to confirm Hepatitis C status. Blood BLOOD SPECIMEN / Unknown Lab Venipuncture / Unknown 11/20/2024 12:48 AM SPOT MACHINE OPERATOR 11/20/2024 1:18 AM SPOT MACHINE OPERATOR Cathie Reyes MD LAB - CHEMISTRY KONG JENSEN Performing Organization Address City/[facility]/ZIP Co de Phone Number [address] [address], [place] [phone] * (ABNORMAL) HEMOGLOBIN (11/19/2024 3:37 PM SPOT MACHINE OPERATOR) Pathologist [facility] Hemoglobin 9.3(L) 11.9 - 15.8 g/dL 11/19/2024 4:07 PM SPOT MACHINE OPERATOR [facility] Blood BLOOD SPECIMEN / Unknown Lab Venipuncture / Unknown 11/19/2024 3:37 PM SPOT MACHINE OPERATOR 11/19/2024 3:44 PM SPOT MACHINE OPERATOR Missy Melgar PA-C LAB - HEMATO LOGY ORDERABLES Performing Organization Address [facility]/ZIP Co de Phone Number [address] [address], [place] [phone] * PREPARE (CROSSMATCH) RBC UNIT(S), 1 Units (11/19/2024 9:14 AM SPOT MACHINE OPERATOR) [facility] Unit Description AS1 LR PRBC IRR [facility] B[facility]OD [facility]ANK LAB Unit ABO O [facility] LAB Unit Rh NEG [facility] Product Number R04 [facility] B LOOD BANK LAB Unit Donor # [id number] [facility] Unit Status transfused [facility] B[facility] OD BANK LAB Product Code [id number] [facility] BLO OD BANK LAB Blood Type Barcode 9500 [facility] BLOOD [facility] LAB Expiration Date [id number] S BLOOD BANK LAB Blood Bank BLOOD SPECIMEN / Unknown 11/19/2024 6:33 AM SPOT MACHINE OPERATOR Daryn North MD LAB - BLOOD BANK ORD ERABLES Performing Organization Address City/[facility]/ZIP Co de Phone Number [facility] BLOOD [facility] LAB [address] [place] [phone], [place] [phone] * TYPE + SCREEN PANEL (11/19/2024 6:24 AM SPOT MACHINE OPERATOR) Only the most recent of5 resultswithin the time period is included. Pathologist [facility] Antibody Screen NEG 7:12 AM [facility] BLOOD BANK LAB ABO Rh O POS 11/19/2024 7:12 AM [facility] BLOOD BANK LAB Blood Bank BLOOD SPECIMEN / Unknown Venipuncture / Unknown 11/19/2024 6:24 AM SPOT MACHINE OPERATOR 11/19/2024 6:33 AM SPOT MACHINE OPERATOR Daryn North MD LAB - BLOOD BANK ORD ERABLES [facility] BLOOD [facility] LAB [address] [place] [address], [facility] [phone] * (ABNORMAL) HEPATIC FUNCTION PANEL (11/19/2024 12:15 AM SPOT MACHINE OPERATOR) Only the most recent of2 resultswithin the time period is included. Pathologist [facility] Protein Total 5.2(L) 6.0 - 8.3 g/dL 025 1:22 AM [facility] Albumin 2.1(L) 3.4 - 5.0 g/dL 11/19/2024 1:22 AM [facility] Bilirubin Total 0.2 0.2 - 1.2 mg/dL 02/2025 1:22 AM [facility] Bilirubin Conjugated 0.1 0.1 - 0.5 mg/dL 11/19/2024 1:22 AM [facility] Bilirubin Unconjugated 0.1 Unconjugated Bilirubin is a calculated value: Reference ranges have not been established. mg/dL 11/19/2024 1:22 AM [facility] Alkaline Phosphatase 279(H) 40 - 150 U/L 11/19/2024 1:22 AM [facility] ALT 79(H) 5 - 55 U/L 11/19/2024 1:22 AM [facility] AST 71(H) 5 - 34 U/L 11/19/2024 1:22 AM [facility] Albumin/Globulin Ratio 0.7(L) 1.1 - 2.3 11/19/2024 1:22 AM [facility] Blood BLOOD SPECIMEN / Unknown Lab Venipuncture / Unknown 11/19/2024 12:15 AM SPOT MACHINE OPERATOR 11/19/2024 12:50 AM SPOT MACHINE OPERATOR Daryn North MD LAB - CHEMISTRY KONG JENSEN [facility] [address] [place] [address], [facility] [phone] * EKG 12-LEAD (11/18/2024 11:30 AM SPOT MACHINE OPERATOR) Ventricular Rate 79 BPM [facility]USE Atrial Rate 79 BPM [facility] MUSE P-R Interval 150 ms [facility] MUSE QRS Duration ms 100 ms [facility] MUSE Q-T Interval ms 406 ms [facility] MUSE QTC Calculation (Bezet) 465 ms [facility] MUSE Calculated P [place] 26 degrees [facility] MUSE Calculated R [place] 9 degrees [facility] MUSE Calculated T [place] 26 degrees H MUSE Interpretation EKG NORMAL SINUS RHYTHM NORMAL ECG NO PREVIOUS ECGS AVAILABLE Confirmed by FRANC RODRIGUEZ MD ([id number]) on 11/22/2024 11:50:41 PM [facility] MUSE 11/18/2024 11:3 0 AM SPOT MACHINE OPERATOR 11/22/2024 11:50 PM SPOT MACHINE OPERATOR Daryn North MD ECG ORDERABLES Performing Organization Address [facility]/ZIP Co de Phone Number [facility] MUSE * VAS Bilateral Venous Duplex Le (11/17/2024 12:30 PM SPOT MACHINE OPERATOR) Anatomical Region Laterality Modality Lower Extremity Ultrasound 11/17/2024 12:1 3 PM SPOT MACHINE OPERATOR Narrative Procedure Note Segundo Clement MD - 11/17/2024 Daryn North MD VASCULAR LAB ORDERAB LES * (ABNORMAL) CULTURE WOUND+GRAM STAIN (11/17/2024 8:38 AM SPOT MACHINE OPERATOR) Only the most recent of5 resultswithin the time period is included. Culture Light Enterobacter cloacae complex(A) JERILYN 11/19/2024 1:56 PM SPOT MACHINE OPERATOR [facility] Gram Stain Heavy Red blood cells 11/19/2024 1:56 PM [facility] Gram Stain Rare Polymorphonuclear cells 11/19/2024 1:56 PM [facility]CRO[facility] Gram Stain No organisms seen 025 1:56 PM [facility]CRO[facility] Microbiology ENTIRE [place] REGION / Unknown Collection / Unknown 11/17/2024 8:38 AM SPOT MACHINE OPERATOR 11/17/2024 8:46 AM SPOT MACHINE OPERATOR Narrative [facility] MICROBIOLOGY - 11/19/2024 1:56 PM SPOT MACHINE OPERATOR Enterobacter cloacae, Citrobacter freundii, Klebsiella (formerly Enterobacter) [...] North MD LAB - MICROBIOLOGY O RDERABLES [facility] MICROBIOLOG[facility] [address] [place], [place] [address], [facility] [phone] * CULTURE ANAEROBE (11/17/2024 8:38 AM SPOT MACHINE OPERATOR) Only the most recent of5 resultswithin the time period is included. Culture No anaerobic organisms isolated JERILYN 11/22/2024 1:20 PM [facility] MICROBIOLOG[facility] Microbiology E[place]IRE [place] / Unknown Collection / Unknown 11/17/2024 8:38 AM SPOT MACHINE OPERATOR 11/17/2024 8:46 AM SPOT MACHINE OPERATOR Daryn North MD LAB - MICROBIOLOGY O [place] [facility] [address] [place], [place] [address], [place] [phone] * ETT LINE PERFORMABLE (11/17/2024 7:55 AM SPOT MACHINE OPERATOR) Narrative Sandro Corona DO - 11/17/2024 7:55 AM SPOT MACHINE OPERATOR Sandro Corona DO 11/17/2024 7:56 AM Endotracheal Tube Placement: Patient Location: OR. Intubation Event Date/Time: 11/17/2024 7:45 AM Procedure: intubation ([id number]) Procedure Section: Sedation: under general anesthesia. Indications [...] TO MICROSCOPIC NO CULTURE (11/16/2024 1:08 PM SPOT MACHINE OPERATOR) Color UA Straw Straw, Yellow 11/16/2024 1:29 PM [facility] Clarity UA Clear Clear 11/16/2024 1:29 PM [facility] Specific [place] UA 1.008 1.005 - 1.030 11/16/2024 1:29 PM [facility] pH UA 5.0 5.0 - 8.0 pH 11/16/2024 1:29 PM [facility] Protein UA Negative Negative 11/16/2024 1:29 PM [facility] Glucose UA Negative Negative 11/16/2024 1:29 PM [facility] Ketone UA Negative Negative 11/16/2024 1:29 PM [facility] Bilirubin UA Negative Negative 11/16/2024 1:29 PM [facility] Blood UA Negative Negative 11/16/2024 1:29 PM [facility] Nitrite UA Negative Negative 11/16/2024 1:29 PM [facility] Leukocyte Esterase Negative Negative 11/16/2024 1:29 PM [facility] Urobilinogen UA Negative Negative mg/dL 11/16/2024 1:29 PM [facility] RBC UA 0-2 None Seen, 0-2, 3-5 /HPF 11/16/2024 1:29 PM [facility] WBC UA 0-5 None Seen, 0-5 /HPF 11/16/2024 1:29 PM [facility] Squamous Epithelial Cells UA 0-2 None Seen, 0-2, 3-5 /HPF 11/16/2024 1:29 PM [facility] Urine URINE SPECIMEN OBTAINED BY CLEAN CATCH PROCEDURE / Unknown Collection / Unknown 11/16/2024 1:08 PM SPOT MACHINE OPERATOR 11/16/2024 1:22 PM SPOT MACHINE OPERATOR Narrative [facility] - 11/16/2024 1:29 PM SPOT MACHINE OPERATOR Neftali Read MD LAB - URINALYS IS ORDERABLES Performing Organization Address City/State/[facility] Co de Phone Number [address] [address] [phone] * PROTEIN URINE RANDOM QUANTITATIVE (11/16/2024 1:08 PM SPOT MACHINE OPERATOR) Protein Urine <7 Not Established mg/dL 11/16/2024 1:43 PM [facility] Urine URINE SPECIMEN OBTAINED BY CLEAN CATCH PROCEDURE / Unknown Collection / Unknown 11/16/2024 1:08 PM SPOT MACHINE OPERATOR 11/16/2024 1:22 PM SPOT MACHINE OPERATOR Neftali Read MD LAB - URINE CH EMISTRY ORDERABLES Performing Organization Address [facility]/ZIP Co de Phone Number [address] [address], [place] [phone] * SODIUM URINE RANDOM (11/16/2024 1:08 PM SPOT MACHINE OPERATOR) Sodium Urine 35 Not Established mmol/L 11/16/2024 1:43 PM SPOT MACHINE OPERATOR [facility] Urine URINE SPECIMEN OBTAINED BY CLEAN CATCH PROCEDURE / Unknown Collection / Unknown 11/16/2024 1:08 PM SPOT MACHINE OPERATOR 11/16/2024 1:22 PM SPOT MACHINE OPERATOR Neftali Read MD LAB - URINE CH EMISTRY ORDERABLES Performing Organization Address [facility] Co de Phone Number [address] [address], [place] [phone] * UREA NITROGEN URINE RANDOM (11/16/2024 1:08 PM SPOT MACHINE OPERATOR) Urea Nitrogen Random Urine 295 Not Established mg/dL 11/16/2024 1:43 PM SPOT MACHINE OPERATOR [facility] Urine URINE SPECIMEN OBTAINED BY CLEAN CATCH PROCEDURE / Unknown Collection / Unknown 11/16/2024 1:08 PM SPOT MACHINE OPERATOR 11/16/2024 1:22 PM SPOT MACHINE OPERATOR Neftali Read MD LAB - URINE CH EMISTRY ORDERABLES Performing Organization Address [facility]/ZIP Co de Phone Number [address] [address], [place] [phone] * CREATININE URINE RANDOM (11/16/2024 1:08 PM SPOT MACHINE OPERATOR) Creatinine Urine 44.87 Not Established mg/dL 11/16/2024 1:43 PM SPOT MACHINE OPERATOR [facility] Urine URINE SPECIMEN OBTAINED BY CLEAN CATCH PROCEDURE / Unknown Collection / Unknown 11/16/2024 1:08 PM SPOT MACHINE OPERATOR 11/16/2024 1:22 PM SPOT MACHINE OPERATOR Neftali Read MD LAB - URINE CH EMISTRY ORDERABLES Performing Organization Address City/[facility]/ZIP Co de Phone Number [facility] [address] [place] [address], [facility] [phone] * (ABNORMAL) VITAMIN D 25-HYDROXY (11/15/2024 12:56 AM SPOT MACHINE OPERATOR) Only the most recent of2 resultswithin the time period is included. Vitamin D, 25 Hydroxy 25.9(L) 30.0 - 80.0 ng/mL 11/15/2024 3:11 AM SPOT MACHINE OPERATOR [facility] Comment: The recommendations for 25-Hydroxy Vitamin D [...] Lab Venipuncture / Unknown 11/15/2024 12:56 AM SPOT MACHINE OPERATOR 11/15/2024 2:11 AM SPOT MACHINE OPERATOR Sol Deterding PA-C LAB - CHEMISTRY ORDERABLES Performing Organization Address [facility] Co de Phone Number [facility] [address] [place] [phone], [facility] [phone] * FOLATE (11/15/2024 12:56 AM SPOT MACHINE OPERATOR) Folate 10.0 7.0 - 31.4 ng/mL 11/15/2024 3:11 AM SPOT MACHINE OPERATOR [facility] Blood BLOOD SPECIMEN / Unknown Lab Venipuncture / Unknown 11/15/2024 12:56 AM SPOT MACHINE OPERATOR 11/15/2024 2:11 AM SPOT MACHINE OPERATOR Sol Deterding PA-C LAB - CHEMISTRY ORDERABLES Performing Organization Address [facility]/ZIP Co de Phone Number [facility] [address] [place] [phone], [facility] [phone] * VITAMIN B12 (11/15/2024 12:56 AM SPOT MACHINE OPERATOR) Vitamin B12 583 213 - 816 pg/mL 11/15/2024 3:11 AM [facility] Blood BLOOD SPECIMEN / Unknown Lab Venipuncture / Unknown 11/15/2024 12:56 AM SPOT MACHINE OPERATOR 11/15/2024 2:11 AM SPOT MACHINE OPERATOR [facility] LAB - CHEMISTRY ORDERABLES [facility] [address] [place] [address], [facility] [phone] * (ABNORMAL) IRON + TRANSFERRIN PANEL (11/15/2024 12:56 AM SPOT MACHINE OPERATOR) Iron 19(L) 40 - 150 ug/dL 11/15/2024 3:01 AM [facility] Transferrin 151(L) 174 - 382 mg/dL 11/15/2024 3:01 AM [facility] Transferrin Saturation % 10(L) 16 - 50 % 11/15/2024 3:01 AM [facility] TIBC Calculated 189(L) 240 - 450 ug/dL 11/15/2024 3:01 AM [facility] Blood BLOOD SPECIMEN / Unknown Lab Venipuncture / Unknown 11/15/2024 12:56 AM SPOT MACHINE OPERATOR 11/15/2024 2:07 AM SPOT MACHINE OPERATOR [facility] - CHEMISTRY ORDERABLES [facility] [address] [place] [address], [place] [phone] * (ABNORMAL) FERRITIN (11/15/2024 12:56 AM SPOT MACHINE OPERATOR) Ferritin 668(H) 13 - 204 ng/mL 11/15/2024 3:19 AM [facility] Blood BLOOD SPECIMEN / Unknown Lab Venipuncture / Unknown 11/15/2024 12:56 AM SPOT MACHINE OPERATOR 11/15/2024 2:07 AM SPOT MACHINE OPERATOR Sol Leal PA-C LAB - CHEMISTRY ORDERABLES [facility] [address] [place] [address], [facility] [phone] * HEMOGLOBIN A1C (11/14/2024 4:18 PM SPOT MACHINE OPERATOR) Pathologist [facility] Hemoglobin A1c 5.0 <=5.6 % 11/14/2024 5:30 PM [facility] Estimated Average Glucose 97 mg/dL 11/14/2024 5:30 PM [facility] Comment: HbA1c Interpretation: Normal : < 5.7% Pre-diabetes: 5.7-6.4% Diabetes: Equal to or greater than 6.5% Test results diagnostic of diabetes should be repeated for confirmation. Treatment target values recommended by ADA and other clinical organizations should be used to evaluate metabolic control in patients. Reference: [place] Diabetes Association, Standards of Care in Diabetes -2020 In patients 70 years and older consider HbA1c target range of 7.0-7.5% (Reference: Samy Cunningham et al. JAMDA. 2012) The Sebia assay for the measurement of HbA1c is a National Glycohemoglobin Standardization Program (NGSP) certified method. Blood BLOOD SPECIMEN / Unknown Lab Venipuncture / Unknown 11/14/2024 4:18 PM SPOT MACHINE OPERATOR 11/14/2024 4:33 PM SPOT MACHINE OPERATOR Daryn North MD LAB - CHEMISTRY KONG JENSEN [facility] [address] [place] [address], [facility] [phone] * (ABNORMAL) COMPREHENSIVE METABOLIC PANEL (11/14/2024 4:18 PM SPOT MACHINE OPERATOR) Only the most recent of2 resultswithin the time period is included. Pathologist [facility] BUN 25 7 - 26 mg/dL 11/14/2024 5:02 PM [facility] Creatinine 1.51(H) 0.56 - 0.96 mg/dL 11/14/2024 5:02 PM [facility] Sodium 135(L) 136 - 145 mmol/L 11/14/2024 5:02 PM [facility] Potassium 4.2 3.5 - 4.5 mmol/L 11/14/2024 5:02 PM [facility] Chloride 105 98 - 107 mmol/L 11/14/2024 5:02 PM [facility] CO2 20(L) 22 - 29 mmol/L 11/14/2024 5:02 PM [facility] Glucose 329(H) 70 - 99 mg/dL 11/14/2024 5:02 PM [facility] Calcium 8.3(L) 8.4 - 10.2 mg/dL 11/14/2024 5:02 PM [facility] Protein Total 5.7(L) 6.0 - 8.3 g/dL 11/14/2024 5:02 PM [facility] Albumin 2.2(L) 3.4 - 5.0 g/dL 11/14/2024 5:02 PM [facility] Bilirubin Total 0.4 0.2 - 1.2 mg/dL 11/14/2024 5:02 PM [facility] Alkaline Phosphatase 292(H) 40 - 150 U/L 11/14/2024 5:02 PM [facility] ALT 262(H) 5 - 55 U/L 11/14/2024 5:02 PM [facility] AST 373(H) 5 - 34 U/L 11/14/2024 5:02 PM [facility] Anion Gap 10 6 - 16 11/14/2024 5:02 PM [facility] BUN/Creatinine Ratio 17 7 - 23 11/14/2024 5:02 PM [facility] Osmolality Calculated 297(H) 275 - 295 mOsm/kg 11/14/2024 5:02 PM [facility] Albumin/Globulin Ratio 0.6(L) 1.1 - 2.3 11/14/2024 5:02 PM [facility] eGFR by CKD-EPI 38(L) >=90 mL/min/1.7 3 m2 11/14/2024 5:02 PM [facility] Blood BLOOD SPECIMEN / Unknown Lab Venipuncture / Unknown 11/14/2024 4:18 PM [facility] 11/14/2024 4:33 PM SPOT MACHINE OPERATOR Missy Melgar PA-C LAB - CHEMIS TRY ORDERABLES [facility] [address] [place] [address], [facility] [phone] * ETT LINE PERFORMABLE (11/14/2024 7:57 AM SPOT MACHINE OPERATOR) Narrative Mauro Miguel Anes Asst - 11/14/2024 7:57 AM SPOT MACHINE OPERATOR Mauro Miguel Anes Asst 11/14/2024 7:57 AM Endotracheal Tube Placement: Patient Location: OR. Intubation Event Date/Time: 11/14/2024 7:33 AM Procedure: intubation ([id number]) Procedure Section: Sedation: IV sedation. Indications for [...] CBC W AUTO DIFFERENTIAL (11/14/2024 6:47 AM SPOT MACHINE OPERATOR) Only the most recent of2 resultswithin the time period is included. WBC 7.3 4.0 - 10.7 x10E9/L 11/14/2024 7:45 AM SPOT MACHINE OPERATOR [facility] RBC Count 3.30(L) 3.90 - 5.20 x10E12/L 11/14/2024 7:45 AM [facility] Hemoglobin 8.9(L) 11.9 - 15.8 g/dL 11/14/2024 7:45 AM [facility] Hematocrit 27.8(L) 34.8 - 46.1 % 11/14/2024 7:45 AM [facility] MCV 84.2 80.0 - 98.0 fL 11/14/2024 7:45 AM [facility] MCH 27.0 26.7 - 33.6 pg 11/14/2024 7:45 AM [facility] MCHC 32.0 31.7 - 36.3 g/dL 11/14/2024 7:45 AM [facility] RDW-CV 14.9(H) 11.3 - 14.8 % 11/14/2024 7:45 AM [facility] Platelet Count 11/14/2024 7:45 AM [facility] Comment:Platelets clumped on slide but appears adequate. Recommend repeat with a sodium citrate blue top tube. MPV 11/14/2024 7:45 AM [facility] Comment:Unable to report Neutrophil % 73.6 41.0 - 74.0 % 11/14/2024 7:45 AM [facility] Lymphocyte % 16.6(L) 17.0 - 47.0 % 11/14/2024 7:45 AM [facility] Monocyte % 8.4 3.0 - 11.0 % 11/14/2024 7:45 AM [facility] Eosinophil % 0.8 0.0 - 7.0 % 11/14/2024 7:45 AM [facility] Basophil % 0.3 0.0 - 1.6 % 11/14/2024 7:45 AM [facility] Immature Granulocytes % 0.3 0.0 - 1.0 % 11/14/2024 7:45 AM [facility] Neutrophil Absolute 5.34 1.60 - 7.50 x10E9/L 11/14/2024 7:45 AM [facility] Lymphocyte Absolute 1.20 1.00 - 4.40 x10E9/L 11/14/2024 7:45 AM [facility] Monocyte Absolute 0.61 0.15 - 1.00 x10E9/L 11/14/2024 7:45 AM [facility] Eosinophil Absolute 0.06 0.00 - 0.60 x10E9/L 11/14/2024 7:45 AM [employer] [facility] Basophil Absolute 0.02 0.00 - 0.13 x10E9/L 11/14/2024 7:45 AM [employer] [facility] Blood BLOOD SPECIMEN / Unknown Venipuncture / Unknown 11/14/2024 6:47 AM [employer] 11/14/2024 6:54 AM [employer] Flaco Rebollar MD LAB - HEMATOLOGY ORD ERABLES [facility] [address] [place] [address], [facility] [phone] * XR Wrist Left 3Vw or More (11/12/2024 9:24 AM [employer]ACHINE [employer]PER[employer]) Anatomical Region Laterality Modality Wrist / Hand Radiographic Christa ging 11/12/2024 9:34 AM [employer] Impressions 11/12/2024 9:36 AM [employer] IMPRESSION: Mildly displaced distal radial fracture. > Interpreting Provider: Yefri Stafford MD on 11/12/2024 9:36 AM Narrative 11/12/2024 9:36 AM [employer] PROCEDURE: XR WRIST LEFT 3VW OR MORE [...] mild soft tissue swelling. Procedure Note Yefri Stafford MD - 11/12/2024 PROCEDURE: XR WRIST LEFT [...] distal radial fracture. > Interpreting Provider: Yefri Stafford MD on 11/12/2024 9:36 AM Daryn North MD DIAGNOSTIC IMAGING O RDERABLES * XR Tibia Fibula Right 2Vw (11/12/2024 9:22 AM [employer] MACHINE OPER[employer]) Only the most recent of4 resultswithin the time period is included. Anatomical Region Laterality Modality Lower Extremity Radiographic Christa ging 11/12/2024 9:32 AM [employer]ACHINE OPER[employer] Impressions 11/12/2024 9:34 AM [employer]INE [employer]PER[employer] IMPRESSION: Redemonstration of a proximal tibial fracture fixation and distal tibiofibular syndesmotic fixation, unchanged in alignment. > Interpreting Provider: Yefri Stafford MD on 11/12/2024 9:34 AM Narrative 11/12/2024 9:34 AM [employer] M[employer]INE [employer] PROCEDURE: XR TIBIA FIBULA RIGHT 2VW DATE/TIME [...] is soft tissue swelling. Procedure Note Yefri Stafford MD - 11/12/2024 PROCEDURE: XR TIBIA FIBULA [...] unchanged in alignment. > Interpreting Provider: Yefri Stafford MD on 11/12/2024 9:34 AM Daryn North MD DIAGNOSTIC IMAGING O RDERABLES * [place] [facility] (10/10/2024 11:01 AM SPOT MACHINE OPERATOR) Only the most recent of3 resultswithin the time period is included. Narrative [facility] - 10/10/2024 11:02 AM SPOT MACHINE OPERATOR Fluoroscopy was used for this exam in the OR. Please see the Operative report. Daryn North MD FLUOROSCOPY ORDERABL ES [facility] * IV PLACEMENT PERFORMABLE (10/10/2024 8:22 AM SPOT MACHINE OPERATOR) Narrative Karol Dunn APRN-CRNA - 10/10/2024 8:22 AM SPOT MACHINE OPERATOR Karol Dunn APRN-CRNA 10/10/2024 8:23 AM Peripheral IV Line Placement: Patient Location: OR Procedure: IV start ([id number]) Procedure Section: Skin Prep: alcohol. Orientation: left Location: forearm Catheter Gauge: 18 Number of Attempts: 1. Procedure Tolerance: performed while patient under general anesthesia. Staff Section Anesthesia Provider: Karol Dunn APRN-CRNA, Performed the procedure Joey Oneal MD GENERAL ANESTHESIA O RDERABLES * ETT LINE PERFORMABLE (10/10/2024 8:22 AM SPOT MACHINE OPERATOR) Narrative Karol Dunn APRN-CRNA - 10/10/2024 8:22 AM SPOT MACHINE OPERATOR Karol Dunn APRN-CRNA 10/10/2024 8:22 AM Endotracheal Tube Placement: Patient Location: OR. Intubation Event Date/Time: 10/10/2024 7:43 AM Procedure: intubation ([id number]) Procedure Section: Sedation: under general anesthesia. Indications [...] AM. Staff Section Anesthesia Provider: Karol Dunn APRN-ADVERTISING JOB TITLES, Performed the procedure Joey Oneal MD GENERAL ANESTHESIA O RDERABLES * XR Knee Right 2Vw or Less (09/21/2024 11:00 AM SPOT MACHINE OPERATOR) Only the most recent of2 resultswithin the time period is included. Anatomical Region Laterality Modality Lower Extremity Digital Radiogra phy 09/21/2024 7:17 PM SPOT MACHINE OPERATOR Impressions 09/21/2024 7:18 PM SPOT MACHINE OPERATOR IMPRESSION: Comminuted fracture of the proximal tibia with interval placement of traction pin in the distal femoral diaphysis. > Interpreting Provider: Natalio Nam on 09/21/2024 7:18 PM Narrative 09/21/2024 7:18 PM SPOT MACHINE OPERATOR PROCEDURE: XR KNEE RIGHT 2VW OR LESS [...] * IV PLACEMENT PERFORMABLE (09/19/2024 4:47 PM SPOT MACHINE OPERATOR) Karol Cat APRN-CRNA - 09/19/2024 4:47 PM SPOT MACHINE OPERATOR Karol Dunn APRN-CRNA 09/19/2024 4:47 PM Peripheral IV Line Placement: Patient Location: OR Insertion Time: 09/19/2024 4:39 PM Procedure: IV start ([id number]) Procedure Section: Skin Prep: alcohol. Orientation: left Location: hand Catheter Gauge: 20 Number of Attempts: 1. Procedure Tolerance: performed while patient under general anesthesia. Staff Section Anesthesia Provider: Karol Dunn APRN-CRNA, Performed the procedure Chelsey Minaya MD GENERAL ANESTHESIA O RDLUCILLE * ETT LINE PERFORMABLE (09/19/2024 4:46 PM SPOT MACHINE OPERATOR) Karol Cat APRN-CRNA - 09/19/2024 4:46 PM SPOT MACHINE OPERATOR Karol Dunn APRN-CRNA 09/19/2024 4:47 PM Endotracheal Tube Placement: Patient Location: OR. Intubation Event Date/Time: 09/19/2024 4:23 PM Procedure: intubation ([id number]) Procedure Section: Sedation: under general anesthesia. Indications [...] Fibula Right Wo Cont (09/19/2024 1:14 AM SPOT MACHINE OPERATOR) Anatomical Region Laterality Modality Lower Extremity Computed Tomogra phy 09/19/2024 1:28 AM SPOT MACHINE OPERATOR Impressions 09/19/2024 1:47 AM SPOT MACHINE OPERATOR IMPRESSION: 1.Acute comminuted and moderately displaced fracture of the proximal tibia with intra-articular extension involving the medial and lateral tibial plateaus. 2.Soft tissue swelling about the knee and proximal lower leg with small volume hemarthrosis. Report dictated by Valentín Zehng MD (residential solar consultant). I, Alejandro Hung MD have personally reviewed and interpreted this examination/study. > Interpreting Provider: Alejandro Hung MD on 09/19/2024 1:47 AM Narrative 09/19/2024 1:47 AM SPOT MACHINE OPERATOR PROCEDURE: CT KNEE RIGHT WO CONTRAST, CT TIBIA FIBULA RIGHT WO CONT, DATE/TIME OF EXAM: 09/19/2024 1:15 AM, LOCATION [facility] INDICATION: M79.604: Right leg pain ADDITIONAL CLINICAL INFORMATION: Ordering Provider Reason For Exam: eval fracture (accession [id number]), fracture (accession [id number]) COMPARISON: Right knee and right tibia-fibula radiographs [...] DATE/TIME OF EXAM: 09/19/2024 1:15 AM, LOCATION [facility] INDICATION: M79.604: Right leg pain ADDITIONAL CLINICAL INFORMATION: Ordering Provider Reason For Exam: eval fracture (accession [id number]), fracture (accession [id number]) COMPARISON: Right knee and right tibia-fibula radiographs [...] Report dictated by Valentín Zheng MD (residential solar consultant). Alejandro Garcia MD have personally reviewed and interpreted this examination/study. > Interpreting Provider: Alejandro Hung MD on 09/19/2024 1:47 AM Adeola Carreon MD CT ORDERABLES * CT Knee Right Wo Contrast (09/19/2024 1:14 AM SPOT MACHINE OPERATOR) Anatomical Region Laterality Modality Lower Extremity Computed Tomogra phy 09/19/2024 1:28 AM SPOT MACHINE OPERATOR Impressions 09/19/2024 1:47 AM SPOT MACHINE OPERATOR IMPRESSION: 1.Acute comminuted and moderately displaced fracture of the proximal tibia with intra-articular extension involving the medial and lateral tibial plateaus. 2.Soft tissue swelling about the knee and proximal lower leg with small volume hemarthrosis. Report dictated by Valentín Zheng MD (residential solar consultant). Alejandro Garcia MD have personally reviewed and interpreted this examination/study. > Interpreting Provider: Alejandro Hung MD on 09/19/2024 1:47 AM Narrative 09/19/2024 1:47 AM SPOT MACHINE OPERATOR PROCEDURE: CT KNEE RIGHT WO CONTRAST, CT TIBIA FIBULA RIGHT WO CONT, DATE/TIME OF EXAM: 09/19/2024 1:15 AM, LOCATION [facility] INDICATION: M79.604: Right leg pain ADDITIONAL CLINICAL INFORMATION: Ordering Provider Reason For Exam: eval fracture (accession [id number]), fracture (accession [id number]) COMPARISON: Right knee and right tibia-fibula radiographs [...] DATE/TIME OF EXAM: 09/19/2024 1:15 AM, LOCATION [facility] INDICATION: M79.604: Right leg pain ADDITIONAL CLINICAL INFORMATION: Ordering Provider Reason For Exam: eval fracture (accession [id number]), fracture (accession [id number]) COMPARISON: Right knee and right tibia-fibula radiographs [...] Report dictated by Valentín Zheng MD (residential solar consultant). I, Alejandro Hung MD have personally reviewed and interpreted this examination/study. > Interpreting Provider: Alejandro Hung MD on 09/19/2024 1:47 AM Adeola Carreon MD CT ORDERABLES * XR Foot Right 3Vw or More (09/19/2024 12:45 AM SPOT MACHINE OPERATOR) Anatomical Region Laterality Modality Ankle / Foot Digital Radiogra phy 09/19/2024 1:25 AM SPOT MACHINE OPERATOR Narrative 09/19/2024 9:28 AM SPOT MACHINE OPERATOR PROCEDURE: XR FOOT RIGHT 3VW OR MORE, DATE/TIME OF EXAM: 09/19/2024 12:45 AM, LOCATION [facility] INDICATION: M79.604: Right leg pain ADDITIONAL CLINICAL [...] dictated by Jasmeet Simental MD I, Yefri Stafford MD have personally reviewed and interpreted this examination/study. > Interpreting Provider: Yefri Stafford MD on 09/19/2024 9:28 AM Procedure Note Yefri Stafford MD - 09/19/2024 PROCEDURE: XR FOOT RIGHT 3VW OR MORE, DATE/TIME OF EXAM: 2:45 AM, LOCATION [facility] INDICATION: M79.604: Right leg pain ADDITIONAL CLINICAL [...] dictated by Jasmeet Simental MD I, Yefri Stafford MD have personally reviewed and interpreted this examination/study. > Interpreting Provider: Yefri Stafford MD on 09/19/2024 9:28 AM Adeola Carreon MD DIAGNOSTIC IMAGING O RDERABLES * US Abdomen Limited (07/01/2024 9:45 AM CDT) Anatomical Region Laterality Modality Abdomen Ultrasound 07/01/2024 10:0 2 AM CDT Impressions 07/01/2024 10:03 AM CDT IMPRESSION: Prominence of the common bile duct but likely secondary to postcholecystectomy state. No liver mass or intrahepatic biliary dilatation. > Interpreting Provider: Dante Almanza MD on 07/01/2024 10:03 AM Narrative 07/01/2024 10:03 AM CDT Procedure: US ABDOMEN LIMITED Exam Date: 07/01/2024 9:47 AM Location: [facility] Indication: R10.10: Upper abdominal pain, unspecified Findings: Real-time sonography of the right upper quadrant was performed. The pancreas is unremarkable as visualized. The liver is homogeneous in echotexture. There is no liver mass. There is no intrahepatic biliary dilatation. There is hepatopedal flow within the portal vein. The hepatic veins are patent. The common bile duct measured up to 6.4 mm. There are no ductal stones. The patient is status post cholecystectomy. The right kidney is unremarkable. No free fluid is seen within the right upper quadrant. Procedure Note Dante Almanza MD - 07/01/2024 Procedure: US ABDOMEN LIMITED Exam Date: 07/01/2024 9:47 AM Location: [facility] Indication: R10.10: Upper abdominal pain, unspecified Findings: Real-time sonography of the right upper quadrant wasperformed. The pancreas is unremarkable as visualized. The liver is homogeneous in echotexture. There is no liver mass.There is no intrahepatic biliary dilatation. There is hepatopedal flowwithin the portal vein. The hepatic veins are patent. The common bile duct measured up to 6.4 mm. There are no ductal stones. The patient is status post cholecystectomy. The right kidney is unremarkable. No free fluid is seen within the right upper quadrant. IMPRESSION: Prominence of the common bile duct but likely secondary to postcholecystectomy state. No liver mass or intrahepatic biliary dilatation. > Interpreting Provider: Dante Almanza MD on 07/01/2024 10:03 AM Jacinto Jaramillo MD ORDERABLE S * PATHOLOGY TISSUE (05/30/2024 9:55 AM CDT) Case Report Surgical Pathology Report Case: [id number] Authorizing Provider: Balwinder Goncalves MD Collected: 05/30/2024 09:55 AM Ordering Location: [facility] Received: 05/30/2024 11:05 AM Pathologist: Joey Solorzano MD Specimens: A) - Gastric, gastric bx R/O H pylori B) - Esophagus, distal esophageal bx R/O EOE C) - Esophagus, proximal esophageal bx R/O EOE D) - Polyp Cecum, cecal polyp x 2 06/02/2024 10:55 AM CDT [facility] Final Diagnosis Stomach, biopsy (A): - Oxyntic mucosa with proton pump inhibitor effect - No active inflammation or H. pylori organisms (H&E examination) Distal esophagus, biopsy (B): - Benign squamous mucosa - No increase in intraepithelial eosinophils Proximal esophagus, biopsy (C): - Benign squamous mucosa - No increase in intraepithelial eosinophils Cecum, polyp x2, biopsies (D): - Tubular adenoma(s), fragmented 06/02/2024 10:55 AM CDT [facility] Microscopic Description and Comment Microscopic examination substantiates the final diagnosis. 06/02/2024 10:55 AM CDT [facility] Clinical History The patient is a 64 year-old female undergoing upper and lower endoscopy. Findings: One 3 mm polyp in the cecum removed with a jumbo cold forceps, and one 5 mm polyp in the cecum removed with a cold snare. A 3 cm hiatal hernia was noted, with a regular Z-line at 35 cm from the incisors. The stomach appeared normal, and biopsies were taken. 06/02/2024 10:55 AM [facility] Gross Description The requisition and specimen(s) are identified with the patient's name Savanna Veliz . Received in formalin, specimen A , and consists of two flores-pink irregular soft tissue fragments at 0.1 and 0.3 cm in greatest dimension and aggregating to 0.3 x 0.2 x 0.1 cm which are submitted in toto in a single cassette labeled A1. Received in formalin, specimen B , and consists of a 0.2 x 0.2 x 0.1 cm flores-pink irregular soft tissue fragment which is submitted in toto in a single cassette labeled B1. Received in formalin, specimen C , and consists of three flores-pink irregular soft tissue fragments ranging from 0.1 to 0.2 cm in greatest dimension and aggregating to 0.3 x 0.3 x 0.1 cm which are submitted in toto in a single cassette labeled C1. Received in formalin, specimen D , and consists of three flores-pink irregular soft tissue fragments ranging from 0.1 to 0.3 cm in greatest dimension and aggregating to 0.5 x 0.4 x 0.1 cm which are submitted in toto in a single cassette labeled D1. ZORA 06/02/2024 10:55 AM [facility] Pathologist Location at [facility] 06/02/2024 10:55 AM [facility] Disclaimer The performance characteristics of all immunohistochemical and indirect immunofluorescence stains (if any) cited in this report were determined by the [facility] of [facility]. Some of these tests were developed by our own laboratory and have not been cleared or approved by the US Food and Drug Administration. The FDA does not require this test to go through premarket FDA review. These tests are used for clinical purposes. They should not be regarded as investigational or for research. This laboratory is certified under the Clinical Laboratory Improvement Amendments (CLIA) as qualified to perform high complexity clinical laboratory testing. This case has been personally reviewed and interpreted by the attending (teaching) pathologist. 06/02/2024 10:55 AM CDT [facility] Embedded Images 06/02/2024 10:55 AM CDT [facility] Biopsy, NOS GASTRIC CONTENTS SPECIMEN / Unknown 05/30/2024 9:55 AM CDT 05/30/2024 11:05 AM CDT Comment:Pre-op diagnosis: Gastroesophageal reflux disease, unspecified whether esophagitis present [K21.9] Screen for colon cancer [Z12.11] Biopsy, NOS REGION OF ESOPHAGUS / Unknown 05/30/2024 9:56 AM CDT 05/30/2024 11:05 AM CDT Comment:Pre-op diagnosis: Gastroesophageal reflux disease, unspecified whether esophagitis present [K21.9] Screen for colon cancer [Z12.11] Biopsy, NOS REGION OF ESOPHAGUS / Unknown 05/30/2024 9:56 AM CDT 05/30/2024 11:05 AM CDT Comment:Pre-op diagnosis: Gastroesophageal reflux disease, unspecified whether esophagitis present [K21.9] Screen for colon cancer [Z12.11] Biopsy, NOS POLYP OF CECUM / Unknown 05/30/2024 10:17 AM CDT 05/30/2024 11:05 AM CDT Comment:Pre-op diagnosis: Gastroesophageal reflux disease, unspecified whether esophagitis present [K21.9] Screen for colon cancer [Z12.11] Balwinder Goncalves MD LAB - PATHOLOGY/CYTO [facility] ORDERABLES Performing Organization Address City/State/[facility] Co de Phone Number [facility] [address], [place] [address] [phone] * EGD (05/30/2024 9:44 AM CDT) Report Endoscopy POC Endoscopy Department Report _ Patient Name: Savanna Veliz Procedure Date: 05/30/2024 9:44 AM Date of : 1960 Classification: Outpatient Gender: Female Ethnicity: Not or Race: White _ Providers: Balwinder Goncalves MD, Nai Ford MD (Fellow) Referring MD: Bandar Smith DO, Jacinto Jaramillo MD Procedure: Upper GI endoscopy Indications: Dysphagia, Heartburn, Suspected esophageal reflux Medications: Monitored Anesthesia Care Description of Procedure: [...] anticoagulant or antiplatelet agents. ASA Grade Assessment: II - A patient with mild systemic disease. After reviewing the risks and benefits, the patient was deemed in satisfactory condition to undergo the procedure. After obtaining informed consent, the endoscope was passed under direct vision. Throughout the procedure, the patient's blood pressure, pulse, and oxygen saturations were monitored continuously. The Endoscope was introduced through the mouth, and advanced to the second part of duodenum. The upper GI endoscopy was accomplished without difficulty. The patient tolerated the procedure well. Findings: A 3 cm hiatal hernia was present. The Z-line was regular and was found 35 cm from the incisors. The exam of the esophagus was otherwise normal. Proximal and distal esophageal biopsies were obtained to r/o EoE. The entire examined stomach was normal. Biopsies were taken with a cold forceps for Helicobacter pylori testing. The first portion of the duodenum and second portion of the duodenum were normal. Estimated Blood Loss: Estimated blood loss: none. Complications: No immediate complications. Impression: - 3 cm hiatal hernia. - Z-line regular, 35 cm from the incisors. - Normal stomach. Biopsied. - Normal first portion of the duodenum and second portion of the duodenum. Recommendation: - Await pathology results. - Resume previous diet. - Continue present medications. - Discharge patient to home (with escort). - Patient has a contact number available for emergencies. The signs and symptoms of potential delayed complications were discussed with the patient. Return to normal activities tomorrow. Written discharge instructions were provided to the patient. Attending Participation: I was present and participated during the entire procedure, including non-kay portions. Procedure Code(s): --- Professional --- 60468, Esophagogastroduo denoscopy, flexible, transoral; with biopsy, single or multiple Diagnosis Code(s): --- Professional --- K44.9, Diaphragmatic hernia without obstruction or gangrene R13.10, Dysphagia, unspecified R12, Heartburn CPT copyright 2021 [employer]. All rights reserved. The codes documented in this report are preliminary and upon electron beam machine welder setter review may be revised to meet current compliance requirements. Balwinder Goncalves MD 05/30/2024 10:37:46 AM This report has been signed electronically. Note Initiated On: 05/30/2024 9:44 AM Number of Addenda: [address] [facility] 05/30/2024 9:44 AM CDT Balwinder Goncalves MD GI PROCEDURE ORDERAB LES [facility] * ENDOSCOPY, COLON, SCREENING (05/30/2024 9:42 AM [...] the patient. Procedure Code(s): --- Professional --- 29591, Colonoscopy, flexible; with removal of tumor(s), polyp(s), or other lesion(s) by snare technique 49077, 59, Colonoscopy, flexible; with biopsy, single or multiple Diagnosis Code(s): --- Professional --- Z12.11, Encounter for screening for malignant neoplasm of colon D12.0, Benign neoplasm of cecum CPT copyright 2021 [employer]. All rights reserved. The codes documented in this report are preliminary and upon electron beam machine welder setter review may be revised to meet current compliance requirements. Balwinder Goncalves MD 05/30/2024 10:32:28 AM This report has been signed electronically. Note Initiated On: 05/30/2024 9:42 AM Number of Addenda: [address] [id number] [facility] 05/30/2024 9:42 AM CDT Balwinder Goncalves MD GI PROCEDURE ORDERAB LES [facility] * XR FOOT LEFT WT BEARING 3VW (03/13/2024 12:04 PM CDT) Anatomical Region Laterality Modality Ankle / Foot Radiographic Christa ging 03/13/2024 4:02 PM CDT Impressions 03/13/2024 4:03 PM CDT IMPRESSION: No evidence of recent or healing fracture nor significant osseous malalignment. Generally very mild scattered osteoarthritic changes as described. > Interpreting Provider: Rylan Craven MD on 03/13/2024 4:03 PM Narrative 03/13/2024 4:03 PM CDT PROCEDURE: XR FOOT LEFT WT BEARING 3VW DATE/TIME OF EXAM: 03/13/2024 12:04 PM CLINICAL INFORMATION: None relevant/not provided if blank. Indication: Z47.89: Orthopedic aftercare Additional History: COMPARISON: None. FINDINGS: Weightbearing AP, internal rotation and lateral views of the left foot were obtained and suggests mild spurring of the medial side of the first metatarsal head. No definite recent or healing fracture of the left foot identified. Small spurs also noted at the base of the fifth metatarsal bone and plantar fascia tendon insertion sites. Procedure Note Rylan Craven MD - 03/13/2024 PROCEDURE: XR FOOT LEFT WT BEARING 3VW DATE/TIME OF EXAM: 03/13/2024 12:04 PM CLINICAL INFORMATION: None relevant/not provided if blank. Indication: Z47.89: Orthopedic aftercare Additional History: COMPARISON: None. FINDINGS: Weightbearing AP, internal rotation and lateral views of the left footwere obtained and suggests mild spurring of the medial side of the first metatarsal head. No definite recent or healing fracture of the left foot identified. Small spurs also noted at the base of the fifth metatarsalbone and plantar fascia tendon insertion sites. IMPRESSION: No evidence of recent or healing fracture nor significant osseous malalignment. Generally very mild scattered osteoarthritic changes as described. > Interpreting Provider: Rylan Craven MD on 03/13/2024 4:03 PM Wilberto Jaime MD DIAGNOSTIC IMAGING O RDERABLES * XR ANKLE LEFT 3VW OR MORE (03/13/2024 12:03 PM CDT) Anatomical Region Laterality Modality Lower Extremity Radiographic Christa ging 03/13/2024 4:00 PM CDT Impressions 03/13/2024 4:02 PM CDT IMPRESSION: No evidence of fracture, malalignment nor other significant bone or joint space abnormality demonstrated at this time at the level of the left ankle. Suspect a small plantar calcaneal spur. > Interpreting Provider: Rylan Craven MD on 03/13/2024 4:02 PM Narrative 03/13/2024 4:02 PM CDT PROCEDURE: XR ANKLE LEFT 3VW OR MORE DATE/TIME OF EXAM: 03/13/2024 12:04 PM CLINICAL INFORMATION: None relevant/not provided if blank. Indication: Z47.89: Orthopedic aftercare Additional History: COMPARISON: None. FINDINGS: 3 view weightbearing study of the left ankle was performed to include AP, internal rotation and lateral views. There is no evidence of fracture nor disruption of the left ankle articulations. Ankle mortise appears normal in width and symmetric in appearance. No evidence of significant joint effusion. Bony mineralization appears age appropriate. Procedure Note Rylan Craven MD - 03/13/2024 PROCEDURE: XR ANKLE LEFT 3VW OR MORE DATE/TIME OF EXAM: 03/13/2024 12:04 PM CLINICAL INFORMATION: None relevant/not provided if blank. Indication: Z47.89: Orthopedic aftercare Additional History: COMPARISON: None. FINDINGS: 3 view weightbearing study of the left ankle was performed to includeAP, internal rotation and lateral views. There is no evidence of fracturenor disruption of the left ankle articulations. Ankle mortise appears normalin width and symmetric in appearance. No evidence of significant joint effusion. Bony mineralization appears age appropriate. IMPRESSION: No evidence of fracture, malalignment nor other significant bone or joint space abnormality demonstrated at this time at the levelof the left ankle. Suspect a small plantar calcaneal spur. > Interpreting Provider: Rylan Craven MD on 03/13/2024 4:02 PM Wilberto Jaime MD DIAGNOSTIC IMAGING O RDERABLES * PROC INJECTION JOINT (SMALL/INTERMED/MAJOR) (03/19/2022 10:36 PM CDT) Narrative Zach Carr MD - 03/19/2022 10:36 PM CDT Zach Carmona MD 03/23/2022 8:03 AM Orthopaedic Hand Surgery Procedure Note Diagnosis: Right thumb CMC arthritis Procedure: Injection of Corticosteroid into the right thumb CMC joint Indications: Savanna Veliz is a 62 year old female who has right thumb CMC arthritis Procedure Details: The patient was informed of her condition, and the potential benefits of injection of steroid. The patient was counseled as to the risks of the procedure including the risk of skin discoloration. The patient was understanding and agreeable. The patient's right hand was placed onto the table with the palm down. The area was prepped with alcohol. Next, using a 25 Ga needle, a solution of 0.5 cc 1% lidocaine without epinephrine and 0.5 cc of Kenalog 40mg was injected into the thumb CMC joint. The needle was removed and the needle site dressed with a semi-sterile bandage. The patient tolerated the procedure well. Zach Carr MD PROCEDURE/MINOR SURG ICAL ORDERABLES * PROC INJECTION TENDON OR LIGAMENT (03/19/2022 10:34 PM CDT) Zach Quintana MD - 03/19/2022 10:34 PM CDT Zach Carmona MD 03/23/2022 8:03 AM Orthopaedic Hand Surgery Procedure Note Diagnosis: Right Thumb stenosing tenosynovitis Procedure: Injection of Corticosteroid into the right thumb Indications: Savanna Veliz is a 62 year old female who has right thumb stenosing tenosyovitis Procedure Details: The patient was informed of her condition, and the potential benefits of injection of steroid. The patient was counseled as to the risks of the procedure including the risk of skin discoloration. The patient was understanding and agreeable. The patient's right hand was placed onto the table with the palm up. The area was prepped with alcohol. Next, a topical anesthetic was used to numb the skin and using a 25 Ga needle, a solution of 0.6 cc 1% lidocaine without epinephrine and 0.4 cc of Kenalog 40mg was injected at the level of the A1 sarahy level. The needle was removed and the needle site dressed with a semi-sterile bandage. The patient tolerated the procedure well. Zach Carr MD PROCEDURE/MINOR SURG ICAL ORDERABLES * XR HAND RIGHT 3VW OR MORE (03/16/2022 10:26 AM CDT) Anatomical Region Laterality Modality Wrist / Hand Radiographic Christa ging 03/16/2022 10:4 5 AM CDT Impressions 03/16/2022 10:46 AM CDT IMPRESSION: Mild degenerative change at the first carpometacarpal joint. This report was electronically signed by YEFRI STAFFORD MD on 03/16/2022 10:46 AM . Narrative 03/16/2022 10:46 AM CDT Exam: XR HAND RIGHT 3VW OR MORE History: M79.641: Right hand pain Comparison: None. Findings: No fracture or dislocation is present. There is mild degenerative change at the first carpometacarpal joint with small osteophytes. Otherwise the joint spaces are normal. No erosions are seen. The bones are osteopenic. The soft tissues are normal. Procedure Note Yefri Stafford MD - 03/16/2022 Exam: XR HAND RIGHT 3VW OR MORE History: M79.641: Right hand pain Comparison: None. Findings: No fracture or dislocation is present. There is mild degenerative change at the first carpometacarpal joint with small osteophytes. Otherwise the joint spaces are normal. No erosions are seen. The bones are osteopenic. The soft tissues are normal. IMPRESSION: Mild degenerative change at the first carpometacarpal joint. This report was electronically signed by YEFRI STAFFORD MD on03/16/2022 10:46 AM . Zach Carr MD DIAGNOSTIC IMAGING O RDERABLES * XR ANKLE RIGHT 3VW OR MORE (07/18/2021 9:28 AM CDT) Only the most recent of6 resultswithin the time period is included. Anatomical Region Laterality Modality Lower Extremity Radiographic Christa ging 07/18/2021 10:5 9 AM CDT Impressions 07/18/2021 11:02 AM CDT IMPRESSION: Distal tibiofibular syndesmotic fixation and healing fibular fracture, unchanged in alignment. This report was electronically signed by YEFRI STAFFORD MD on 07/18/2021 11:02 AM . Narrative 07/18/2021 11:02 AM CDT Exam: XR ANKLE RIGHT 3VW History: M19.071: Primary osteoarthritis of right ankle Comparison: 06/13/2021. Findings: Internal fixation of the distal tibiofibular syndesmosis is redemonstrated with a lateral plate and screws. The hardware is intact and the osseous alignment is unchanged. A mildly displaced fracture of the distal fibula just proximal to the plate is unchanged in alignment and healing. The joint spaces are normal. There is soft tissue swelling. Postsurgical changes noted in the posterior aspect of the calcaneus. Procedure Note Yefri Stafford MD - 07/18/2021 Exam: XR ANKLE RIGHT 3VW History: M19.071: Primary osteoarthritis of right ankle Comparison: 06/13/2021. Findings: Internal fixation of the distal tibiofibular syndesmosis isredemonstrated with a lateral plate and screws. The hardware is intact and the osseous alignment is unchanged. A mildly displaced fracture of the distal fibula just proximal to the plate is unchanged in alignment and healing. The joint spaces are normal. There is soft tissue swelling. Postsurgical changes noted in the posterior aspect of the calcaneus. IMPRESSION: Distal tibiofibular syndesmotic fixation and healing fibular fracture, unchanged in alignment. This report was electronically signed by YEFRI STAFFORD MD on07/18/2021 11:02 AM . Sukumar Magaña DO DIAGNOSTIC IMAGING O RDERABLES * ETT LINE PERFORMABLE (03/15/2021 8:11 AM CDT) Narrative Schyuler Melgar APRN-ADVERTISING J[employer]ITLES - 03/15/2021 8:11 AM CDT Schuyler Melgar APRN-SHANTAL 03/15/2021 8:12 AM Endotracheal Tube Placement: Patient Location: OR. Procedure: intubation (28782). Procedure Section: Sedation: under general anesthesia. Indications for Airway Management: anesthesia Procedure pretreatments used? No Induction: standard IV Patient Position: sniffing and supine Mask Ventilation: easy. Blade Type: Abelino Blade Size: 3 Laryngoscopy View: grade 1 (full cords) Intubation Adjuncts: stylet Tube: endotracheal tube Placement: oral Tube type: cuff - inflated Tube Size (MM): 7 Depth of Insertion (CM): 1 Measured From: teeth Cuff Inflated With: air Number of Attempts: 1. Placement Verified By: direct visualization, bilateral breath sounds and CO2 monitor Tube secured with: adhesive tape. Dentition unchanged? Yes Difficult Airway? No. 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 Mary Del Real MD GENERAL ANESTHESIA ORDERABLES * Peripheral Nerve Block (03/15/2021 7:43 AM CDT) Narrative Myles Dos Santos MD - 03/15/2021 7:43 AM CDT Myles Dos Santos MD 03/15/2021 7:45 AM Peripheral Nerve Block Procedure: Peripheral Nerve Block Patient Location: Pre-op Preprocedure Section: Indications: at surgeon's request and postop pain management. Pre-anesthetic Checklist: Patient identified, IV Checked, Site examined and clear, Risks and benefits discussed, Surgical consent verified, Monitors and equipment, Time-out performed, Informed consent obtained, Pre-op evaluation done, Questions answered/anesthesia questions answered, Allergies reviewed and Removal hand/wrist jewelry Monitors: BP, Pulse Ox and EKG. Patient Condition: sedated, meaningful contact maintained throughout procedure Patient Position: supine Patient Sedated? Yes Procedure Section Laterality: right Block Performed: adductor canal Prep: Chloraprep Strerile Field: gloves, mask, hat/cap and patient draped Skin localized with: lidocaine (XYLOCAINE) 1 % injection, 1 mL Needle Type: Echogenic insultaed Needle Gauge: 21 Needle Length: 90 mm Needle Depth: 3 cm Catheter? No Ultrasound Guided? Yes Technique: in plane Visualization: Preliminary scan performed, Important anatomical structures identified, Needle tip visualized throughout the procedure, Target identified, No intraneural or intravascular puncture occurred, Ultrasound image in chart, Local visualized surrounding nerve on ultrasound and Hydrodissection utilized Injection was made incrementally with constant monitoring and aspirations every 5 mL's Injection Assessment: Slow fractionated injection Block Agents or Additives used? Yes Block agents used: bupivacaine PF (MARCAINE PF) 0.25 % injection, 20 mL Procedure Tolerance: tolerated well Procedure Start Time: 03/15/2021 7:34 AM. Procedure End Time: 03/15/2021 7:38 AM. Procedure Total Time: 4 minutes. Staff Section Anesthesia Provider: Tomas Ruiz DO Performed the procedure Provider #1: Myles Dos Santos MD. Additional Comments: Procedure was performed for post operative right lower leg pain. I was present for and supervised the entire procedure. Myles Dos Santos MD 03/15/2021 7:45 AM . Myles Dos Santos MD GENERAL ANESTHESIA ORDERABLES * Peripheral Nerve Block (03/15/2021 7:40 AM CDT) Narrative Myles Dos Santos MD - 03/15/2021 7:40 AM CDT Myles Dos Santos MD 03/15/2021 7:43 AM Peripheral Nerve Block Procedure: Peripheral Nerve Block Patient Location: Pre-op Preprocedure Section: Indications: at surgeon's request and postop pain management. Pre-anesthetic Checklist: Patient identified, IV Checked, Site examined and clear, Risks and benefits discussed, Surgical consent verified, Monitors and equipment, Time-out performed, Informed consent obtained, Pre-op evaluation done, Questions answered/anesthesia questions answered, Allergies reviewed and Removal hand/wrist jewelry Monitors: BP, Pulse Ox and EKG. Patient Condition: sedated, meaningful contact maintained throughout procedure Patient Position: supine Patient Sedated? Yes Sedation Type: mild Sedation Agents: midazolam (VERSED) injection, 2 mg Procedure Section Laterality: right Block Performed: popliteal Prep: Chloraprep Strerile Field: gloves, mask and hat/cap Skin localized with: lidocaine (XYLOCAINE) 1 % injection, 1 mL Needle Type: Echogenic insultaed Needle Gauge: 21 Needle Length: 90 mm Needle Depth: 3 cm Catheter? No Ultrasound Guided? Yes Technique: in plane Visualization: Preliminary scan performed, Important anatomical structures identified, Needle tip visualized throughout the procedure, Target identified, No intraneural or intravascular puncture occurred, Ultrasound image in chart, Local visualized surrounding nerve on ultrasound and Hydrodissection utilized Injection was made incrementally with constant monitoring and aspirations every 5 mL's Injection Assessment: Slow fractionated injection Block Agents or Additives used? Yes Block agents used: bupivacaine PF (MARCAINE PF) 0.25 % injection, 20 mL Procedure Tolerance: tolerated well Events: blood aspirated Procedure Start Time: 03/15/2021 7:28 AM. Procedure End Time: 03/15/2021 7:33 AM. Procedure Total Time: 5 minutes. Staff Section Anesthesia Provider: Myles Dos Santos MD Provider #1: Tomas Ruiz DO, Performed the procedure. Additional Comments: Procedure was performed for post operative right lower leg pain. I was present for and supervised the entire procedure. Myles Dos Santos MD 03/15/2021 7:43 AM . Myles Dos Santos MD GENERAL ANESTHESIA ORDERABLES * BLOOD TYPE VERIFICATION (03/15/2021 7:40 AM CDT) ABO Rh O POS 03/15/2021 8:2 9 AM CDT [facility] Blood Bank BLOOD SPECIMEN / Unknown Lab Venipuncture / Unknown 03/15/2021 7:40 AM CDT 03/15/2021 7:40 AM CDT Sukumar Magaña DO LAB - BLOOD BANK ORD ERABLES [facility] [address] [place] [address], [facility] [phone] Care Teams Operator [employer] Relationship Specialty Start Date End Date Geovanni Rodriguez DO [address] [place] [address] PCP - General Internal Medicine 09/19/24
--- OUTSIDE RECORDS SUMMARY | 2024-11-24 17:18 | XMS_ITS | Referral Summary ---
Author Organization [facility] [address] Address [address] [place] [address] Care Team Providers Care Clinical Trials Nurse Name Role Phone ChatoniteshSoo rosadomigdalia ALMEIDA Unavailable Unavailable Celestino Parra MD Unavailable [phone] Fan Edwards Unavailable Unavailable Geovanni Rodriguez DO Primary Care Provider [phone] Allergies Active Allergy Reactions Criticality Noted Date [...] her a script for gabapentin as well. 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 us Historical Provider GI PROCEDURE ORDERABLES F inal Result from Last 3 Months or Most Recently Relevant to Health Maintenance Insurance [facility]ICARE [facility] CHOICE PLUS MEDICARE [facility] Care Teams Clinical Trials Nurse Relationship Specialty Start Date End Date Geovanni Rodriguez DO [address] [facility] [address] [place], [place] [id number] PCP - General Internal Medicine 07/08/24 Erika Lopes OT Occupational Therapist Occupational Therapy 06/10/18 Celestino Parra MD Surgeon Vascular Surgery 02/19/19 Fan Edwards Referring Physician Gastroenterology 02/19/19
--- OUTSIDE RECORDS SUMMARY | 2024-11-24 17:18 | XMS_ITS | Continuity of Care Document ---
Author Organization [facility] Address [address] [place] [address] Phone Care Team Providers Care Library Director Name Role Phone Alex Khan MD Unavailable Unavailable Advance Directives Directive Yes / No Effective Date File Name No Information Encounters Encounter Description Practice Location Reason(s) For Visit Diagnoses Date Provider Providers Copied on Encounter [facility], [address], [place], [place], [id number], [place] tel:[phone] [facility] No Information Erin Johnson. [address] [place], [place], [address], [place]. tel:[phone] Referring Provider: Sukumar Quiles, [address], [address]. tel:[phone] Family History Family Member Type Diagnosis Age At Onset No Information Payers Payer name Insurance type Covered green party ID Authoriza tion(s) [facility] CI [id number] Social History Type Description Quantity Date Captured [...]
[2024-11-24 17:38] LABS: Basophils Percent Auto 0.4 % (0.2-1.2); Eosinophils Absolute Auto 0.2 K/mm3 (0-0.3); Hematocrit 28.7 % (37.0-47.0); Hemoglobin 8.8 g/dL (12.0-15.0); Immature Granulocyte Absolute 0.05 K/mm3 (0.00-0.031); Immature Granulocyte Percent A 0.7 % (0-0.5); Lymphocytes Absolute Auto 1.73 K/mm3 (0.9-3.2); Lymphocytes Percent Auto 23.6 % (18.3-44.2); Mean Corpuscular HGB Conc 30.7 g/dl (32-36); Mean Corpuscular Hemoglobin 27.3 pg (26-34); Mean Corpuscular Volume 89.1 fl (80-100); Mean Platelet Volume 11.6 fl (7.4-10.4); Monocytes Absolute Auto 0.6 K/mm3 (0.1-0.6); Monocytes Percent Auto 8.2 % (2.6-8.5); Neutrophils Absolute Auto 4.8 K/mm3 (1.3-6.7); Neutrophils Percent Auto 65.1 % (45.5-73.1); Platelet Count Result 306 k/mm3 (150-375); Red Blood Count 3.22 M/mm3 (4.2-5.4); Red Cell Distribution Width 16.6 % (11.5-14.5); White Blood Count 7.3 K/mm3 (4.5-10.0)
[2024-11-24 17:59] LABS: Alanine Aminotransferase 47 U/L (6-35); Albumin Level 3.3 g/dL (3.5-5.1); Alkaline Phosphatase 222 U/L (38-126); Anion Gap 9 mmol/L (4-12); Aspartate Amino Transferase 28 U/L (14-36); Bilirubin,Total 0.4 mg/dL (0.2-1.3); Blood Urea Nitrogen 21 mg/dL (7-17); CRP 1.2 mg/dL (<1.0); Calcium 9.3 mg/dL (8.4-10.2); Carbon Dioxide 20 mmol/L (22-30); Chloride 111 mmol/L (98-107); Estimated Glomerular Filt Rate > 60; Glucose 90 mg/dL (65-110); Sodium 140 mmol/L (137-145)
[2024-11-24 19:42] LABS: Erythrocyte Sedimentation Rate 103 mm/hr (0-20)
== END 2024-11-24 17:15 | disposition home or self-care (01) ==
PROVIDERS: PCP Internal Medicine; Visit Provider Orthopaedic Surgery
DX: T81.42XA Infection following a procedure, deep incisional surgical site, initial encounter (principal); X58.XXXA Exposure to other specified factors, initial encounter
CPT/HCPCS: 80053; 85025; 85652; 86140

== ENCOUNTER 2024-11-27 13:21 | Emergency (ER) | payer MEDICARE, OTHER, SELFPAY ==
--- OUTSIDE RECORDS SUMMARY | 2024-11-27 13:29 | XMS_ITS | Referral Summary ---
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 CHOICE PLUS [facility] HMO/PPO Address: [address] [address] [place] [address] MEDICARE [facility] Care Teams Insurance Claim Approver Relationship Specialty Start Date End Date Geovanni Rodriguez DO [address] [facility] [address] [place], [place] [id number] PCP - General Internal Medicine 07/08/24 Erika Lopes OT Occupational Therapist Occupational Therapy 06/10/18 Celestino Parra MD Surgeon Vascular Surgery 02/19/19 Fan Edwards Referring Physician Gastroenterology 02/19/19
--- OUTSIDE RECORDS SUMMARY | 2024-11-27 13:29 | XMS_ITS | Continuity of Care Document ---
Author Organization [facility] Address [address] [place] [address] Phone Care Team Providers Care Account Liaison Hospice Name Role Phone Alex Khan MD Unavailable Unavailable Advance Directives Directive Yes / No Effective Date File Name No Information Encounters Encounter Description Practice Location Reason(s) For Visit Diagnoses Date Provider Providers Copied on Encounter [facility], [address], [place], [place], [id number], tel:[phone] [facility] No Information Erin Johnson. [address] [place], [place], [id number], [place]. tel:[phone] Referring Provider: Sukumar Quiles, [address], [address]. tel:[phone] Family History Family Member Type Diagnosis Age At Onset No Information Payers Payer name Insurance type Covered republican ID Authoriza tion(s) [facility] CI [id number] Social History Type Description Quantity Date Captured [...]
--- OUTSIDE RECORDS SUMMARY | 2024-11-27 13:29 | XMS_ITS | Clinical Summary ---
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 [address] [place] [address] PCP - General Internal Medicine 07/08/24 Erika Lopes OT Occupational Therapist Occupational Therapy 06/10/18 Celestino Parra MD Surgeon Vascular Surgery 02/19/19 Fan Edwards Referring Physician Gastroenterology 02/19/19
--- OUTSIDE RECORDS SUMMARY | 2024-11-27 13:29 | XMS_ITS | Encounter Summary ---
Author Organization [facility] Address [address] [place] [address] Care Team Providers Care Supervisor Paint Name Role Phone Bandar Smith MD Primary Care Provider [phone] Erika Lopes OT Unavailable Unavailable Celestino Parra MD Unavailable [phone] Fan Edwards Unavailable Unavailable Geovanni Rodriguez DO Primary Care Provider [phone] Encounter Details Date Type Department Care Team (Late st Contact Info) Description 01/21/2024 Orders Only [facility] Health Information Management [address] [place] [address] Scanning, Provider Social History Tobacco Use [...] on file 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 Gender Identity Not on file Sexual Orientation [...] on filedocumented in this encounter Care Teams Supervisor Paint Relationship Specialty Start Date End Date Bandar Smith MD [address] [place] [address] PCP - General Internal Medicine 05/20/18 07/07/24 Geovanni Rodriguez DO [address] [place] [address] PCP - General Internal Medicine 07/08/24 Erika Lopes, OT Occupational Therapist Occupational Therapy 06/10/18 Celestino Parra MD Surgeon Vascular Surgery 02/19/19 Fan Edwards Referring Physician Gastroenterology 02/19/19 documented as of this encounter
[2024-11-27 13:30] VITALS: BP 151/65; PULSE 67; RESP 16; TEMP 36.4; O2SAT 100
--- OUTSIDE RECORDS SUMMARY | 2024-11-27 13:30 | XMS_ITS | Patient Health Summary ---
Author Organization [facility] Address [address] [place] [address] Care Team Providers Care Basket Bottom Machine Operator Name Role Phone Balaji Rodriguezdie Nadja DO Primary Care Provider [phone] Note from [facility],non-owned Affiliates and Associated Physician Practices is amultiple site organization consisting of ambulatory clinics and hospital sitesin [place], [place], [place] and [place]. This disclosure is being madepursuant to the Care Everywhere program and may not contain all information available regarding this patient. Last updated 18.[facility] Allergies * Meperidine(Urticaria) -Medium Criticality * Nickel(Other) -Low Criticality * Skin Adhesives(Rash) -Medium Criticality * Sulfa Drugs(Rash,Other) -Medium Criticality * Aspirin(Other) -Medium Criticality,Inactive Medications * Be aware that medications may not be up to date on this document. Alwaysverify current medications with the patient. * omeprazole (PRILOSEC) 40 MG capsule(Started 12/29/2020) Take 1 (one) capsule by mouth once daily * amLODIPine (Norvasc) 5 MG tablet Take 1 (one) tablet by mouth once daily Reasons: High Blood Pressure * vitamin D3 (Cholecalciferol) 25 MCG (1000 UNITS) tablet(Started 09/23/2024) Take 1 (one) tablet by mouth once daily * Gauze Pads & Dressings ([place] [...] route every 8 hours for 11 days * famotidine (Pepcid) 40 MG tablet(Started 11/26/2024) Take 1 (one) tablet by mouth at bedtime for 60 days 1 refill by 11/26/2025 * ciprofloxacin (Cipro) 500 MG tablet(Started 11/26/2024) Take 1 (one) tablet by mouth 2 times daily Ended Medications* losartan (COZAAR) 100 MG tablet(Started 12/29/2020) (Discontinued) Take 1 (one) tablet by mouth once daily * atorvastatin (LIPITOR) 20 MG tablet(Started 04/26/2021)(Discontinued) Take 1 (one) tablet by mouth once [...] 6 hours as needed for Pain * famotidine (Pepcid) 40 MG tablet(Started 10/13/2024)(Discontinued) Take 1 (one) tablet by mouth at bedtime for 60 days 2 refills by 10/13/2025 * clindamycin (Cleocin) 300 MG capsule(Started 10/22/2024)() [...] route every 8 hours for 11 days * ciprofloxacin (Cipro) 500 MG tablet(Started 11/26/2024)(Discontinued) Take 1 (one) tablet by mouth 2 times daily Active Problems Problem Noted Date Diagnosed Date [...] Former Cigarettes 2 13 1 972 - 1984 Smokeless Tobacco: Never Tobacco Cessation:Counseling Given: Not [...] Answer Date Recorded Patient Health Questionnaire-2 Score 1 11/26/2024 [facility] Occupat ional Health - Occupational Stress [...] any time in the past 12 m [facility], were you homeless or living in a retirement (including now)? No 11/15/2024 Sex and Gender Information Value Date Recorded Sex Assigned at Female 06/03/2023 3:57 PM CDT Gender Identity Female 06/03/2023 3:57 PM CDT Sexual Orientation Not on file Last Filed Vital Signs Vital Sign Reading Time Taken Comments Blood Pressure 138/73 11/26/2024 7:43 AM [facility] Pulse 70 11/26/2024 7:43 AM [facility] Temperature 36.7 C (98 F) 11/26/2024 7:43 AM [facility] Respiratory Rate 18 11/26/2024 7:43 AM [facility] Oxygen Saturation 97% 11/26/2024 7:43 AM [facility] Inhaled Oxygen Concentration 40% 10/10/2024 1 2:23 PM [facility] Weight 89.4 kg (197 lb) 11/26/2024 9:39 AM [facility] Height 167.6 cm (5' 6 ) 11/26/2024 9:39 AM [facility] Body Mass Index 31.8 11/26/2024 9:39 AM [facility] Medical Devices Implanted Type Area Edge Inker Heels Device Identifier Shelf Expiration Date Model / Serial / Lot Screw 3.5mm 50mm 2.5mm Slf-Tap Sm Hex Implanted:Qty : 1 on 03/15/2021 by Sukumar Magaña, DO at [facility] Right: [employer]ia [employer] [id number] / / Screw 3.5mm 55mm 2.5mm Slf-Tap Sm Hex Implanted:Qty : 1 on 03/15/2021 by Sukumar Magaña, DO at [facility] Right: [employer]ia [employer] [id number] / / Plate 2 Hl 2 Comp Colr 25mm /3 Tblr Implanted:Qty : 1 on 03/15/2021 by Sukumar Magaña DO at [facility] Right: Tibia [employer] [id number] / / Sub Bngf 4.8mm Ostst Ca Slf Pelt Implanted:Qty : 1 on 03/15/2021 by Sukumar Magaña DO at [facility] [employer] [id number] / / [id number] Screw 4.7mm 5.6mm 36mm 2.5mm Ft Va Lopro Implanted:Qty : 2 on 10/10/2024 by Daryn North MD at [facility] Right: Tibia [employer] 11/26/2033 [id number] / / [id number] Screw 4.7mm 5.6mm 28mm 2.5mm Ft Va Lopro Implanted:Qty : 1 on 10/10/2024 by Daryn North MD at [facility] Right: Tibia [employer] 03/12/2032 [id number] / / [id number] Screw 4.7mm 5.6mm 32mm 2.5mm Ft Va Lopro Implanted:Qty : 1 on 10/10/2024 by Daryn North MD at [facility] Right: Tibia [employer] [id number] 10/19/2030 [id number] / / [id number] Agent Hmst Thrmb Kt Surgiflo 2ml Implanted:Qty : 2 on 10/10/2024 by Daryn North MD at [facility] Right: Tibia [employer] [id number] / / Screw 3.5mm 26mm Slf-Tap Cortx Evos Strl Implanted:Qty : 1 on 10/10/2024 by Daryn North MD at [facility] Right: Tibia [employer] [id number] / / Screw 3.5mm 32mm Slf-Tap Cortx Evos Strl Implanted:Qty : 1 on 10/10/2024 by Daryn North MD at [facility] Right: Tib[employer] [id number] / / Screw 3.5mm 34mm Slf-Tap Cortx Evos Strl Implanted:Qty : 1 on 10/10/2024 by Daryn North MD at [facility] Right: Tibia [employer] [id number] / / Screw 3.5mm 15mm Slf-Tap Lck Evos Strl Implanted:Qty : 1 on 10/10/2024 by Daryn North MD at [facility] Right: Tibia [employer] [id number] / / Plate 9 Hl Va Lck Fib Lt Dist 125mm Implanted:Qty : 1 on 10/10/2024 by Daryn North MD at [facility] Right: Tibia [employer] [id number] / / Screw 3.5mm 32mm Ft Slf-Tap Hex Lopro Implanted:Qty : 1 on 10/10/2024 by Daryn North MD at [facility] Right: [employer] [id number] / / Screw 3.5mm 60mm T15 Lck Slf-Tap Tip Tpr Implanted:Qty : 1 on 10/10/2024 by Daryn North MD at [facility] Right: [employer] [id number] / / Screw 3.5mm 65mm T15 Lck Slf-Tap Tip Tpr Implanted:Qty : 3 on 10/10/2024 by Daryn North MD at [facility] Right: [employer] [id number] / / Screw 3.5mm 70mm T15 Lck Slf-Tap Tip Tpr Implanted:Qty : 1 on 10/10/2024 by Daryn North MD at [facility] Right: [employer] [id number] / / Plate 9 Hl Lck Lopro Dist Blt Tip Tib Rt Implanted:Qty : 1 on 10/10/2024 by Daryn North MD at [facility] Right: [employer] [id number] / / Screw 3.5mm 75mm T15 Lck Slf-Tap Tip Tpr Implanted:Qty : 2 on 10/10/2024 by Daryn oNrth MD at [facility] Right: [employer] [id number] / / Screw 3.5mm 40mm Ft Slf-Tap Hex Lopro Implanted:Qty : 1 on 10/10/2024 by Daryn North MD at [facility] Right: [employer] [id number] / / Screw 3.5mm 20mm T15 Slf-Tap Lck Tpr Implanted:Qty : 1 on 10/10/2024 by Daryn North MD at [facility] Right: [employer] [id number] / / Cmnt Bone Smpx Ptbr Fd Radopq Prebl Implanted:Qty : 1 on 11/17/2024 by Daryn North MD at [facility] Right: Knee [employer] 01/12/2026 [id number] / / [id number] Lorenzo Bone Void 10cc 20cc Ca Slf Stimulan Implanted:Qty : 1 on 11/17/2024 by Daryn North MD at [facility] Right: Knee [employer] 07/14/2027 620-010 / / [id number] Explanted Type Area Edge Inker Heels Device Identifier Shelf Expiration Date Model / Serial / Lot Wire K 2mm 150mm 1 End Troc Pnt Ss Sm Explanted:Qty: 1 on 03/15/2021 by Sukumar Magaña DO at [facility] Right: [employer] [id number] / / Screw 3.5mm 60mm 2.5mm Slf-Tap Sm Hex Explanted:Qty: 1 on 03/15/2021 by Sukumar Magaña DO at [facility] Right: [employer]ia [employer] [id number] / / Cplng Extfix Hfmn 3 Nikhil To Nikhil Salomón Explanted:Qty: 4 on 09/19/2024 by Marifer Saeed MD at [facility] Right: [employer]ia [employer] 4922-1-010 / / Screw 3.5mm 38mm Slf-Tap Cortx Evos Strl Explanted:Qty: 1 on 10/10/2024 by Daryn North MD at [facility] Right: Tibia [employer] [id number] / / Screw 3.5mm 42mm Slf-Tap Cortx Evos Strl Explanted:Qty: 1 on 10/10/2024 by Daryn North MD at [facility] Right: [employer] [id number] / / Wire K 1.6mm 150mm Troc Pnt Ss Fx Strl Explanted:Qty: 1 on 10/10/2024 by Daryn North MD at [facility] Right: Tibia [employer] [id number] / / Plate 11 Hl Va Lck Lopro Fib Lt Dist Lat Explanted:Qty: 1 on 10/10/2024 by Daryn North MD at [facility] Right: Tibia [employer] [id number] / / Wire K 1.6mm 6in Hlf Bynt Pnt Ss Fx Explanted:Qty: 3 on 10/10/2024 by Daryn North MD at [facility] Right: Tibia [employer] [id number] / / Pin Hlf 180mm 5mm Apx Hfmn2 Canc Ss Implanted:Qty: 2 on 09/19/2024 by Marifer Saeed MD at [facility] Explanted:Qty: 2 on 10/10/2024 by Daryn North MD at [facility] Right: [employer]ia [employer] [id number] / / Pin Hlf 200mm 5mm Apx Hfmn2 Orth Ss Thrd Implanted:Qty: 2 on 09/19/2024 by Marifer Saeed MD at [facility] Explanted:Qty: 2 on 10/10/2024 by Daryn North MD at [facility] Right: [employer] 5018-6-200 / / Procedures * XR TIBIA FIBULA RIGHT 2VW(Performed 11/26/2024) Performed for Closed fracture of lateral portion of right tibial plateau, initial encounter * COMPREHENSIVE METABOLIC PANEL(Performed 11/26/2024) Performed for Elevated LFTs * GLUCOSE - POINT OF CARE(Performed 11/20/2024) [...] 11/17/2024) * ENDOTRACHEAL TUBE NOTE(Performed 11/17/2024) * RI EXPLORE WOUND,EXTREMITY(Performed 11/17/2024) Performed for Injury of [...] 11/14/2024) * ENDOTRACHEAL TUBE NOTE(Performed 11/14/2024) * RI RENE SUBQ TISSUE 20 SQ CM/<(Performed 11/14/2024) [...] 10/10/2024) * ENDOTRACHEAL TUBE NOTE(Performed 10/10/2024) * RI OPEN RX BILAT TIB PLAT FX(Performed 10/10/2024) [...] 09/19/2024) * ENDOTRACHEAL TUBE NOTE(Performed 09/19/2024) * RI CLOSED RX TIBIA SHAFT FX(Performed 09/19/2024) Performed [...] 05/30/2024) * ENDOSCOPY, COLON, SCREENING(Performed 05/30/2024) * RI COLOREC CANC SCRN,SCOPY NOT HI RISK(Performed 05/30/2024) Performed for Gastroesophageal reflux disease, unspecified whether esophagitis present, Screen for colon cancer * RI ED EGD FLEX TRANSORAL DX(Performed 05/30/2024) Performed for Gastroesophageal reflux disease, unspecified whether esophagitis present, Screen for colon cancer * XR FOOT LEFT WT BEARING 3VW(Performed 03/13/2024) Performed for Orthopedic aftercare * XR ANKLE LEFT 3VW OR MORE(Performed 03/13/2024) Performed for Orthopedic aftercare * RI INCISE FINGER TENDON SHEATH(Performed 09/20/2022) Performed for [...] Performed for Arthralgia of right foot * RI OPEN RX TIBIA SHAFT FX,SCREWS(Performed 03/15/2021) Performed for Gastrocnemius equinus of right lower extremity, Primary osteoarthritis of right ankle * RI GASTROCNEMIUS RECESSION(Performed 03/15/2021) Performed for Gastrocnemius equinus of right lower extremity, Primary osteoarthritis of right ankle * ENDOTRACHEAL TUBE NOTE(Performed 03/15/2021) * PERIPHERAL BLOCK(Performed 03/15/2021) * PERIPHERAL BLOCK(Performed 03/15/2021) * BLOOD TYPE VERIFICATION(Performed 03/15/2021) * TYPE + SCREEN PANEL(Performed 03/15/2021) * XR ANKLE RIGHT 3VW OR MORE(Performed 02/14/2021) Performed for Arthralgia of right ankle Results * XR Tibia Fibula Right 2Vw (11/26/2024 9:34 AM [facility]) Only the most recent of5 resultswithin the time period is included. Anatomical Region Laterality Modality Lower Extremity Computed Radiogr aphy 11/26/2024 10:0 0 AM [facility] Impressions 11/26/2024 10:29 AM [facility] IMPRESSION: Redemonstration of a proximal tibial fracture fixation and distal tibiofibular syndesmotic fixation, unchanged in alignment. Interval appearance of multiple radiopaque findings within the lateral aspect of the distal thigh and medial aspect of the proximal leg soft tissue, likely antibiotic beads. Report dictated by Luciano Woods MD, (Ndt Inspector). I, Yefri Stafford MD have personally reviewed and interpreted this examination/study. > Interpreting Provider: Yefri Stafford MD on 11/26/2024 10:29 AM Narrative 11/26/2024 10:29 AM [facility] PROCEDURE: XR TIBIA FIBULA RIGHT 2VW, DATE/TIME OF EXAM: 11/26/2024 9:34 AM, LOCATION [facility] INDICATION: S82.121A: Closed fracture of lateral portion of right tibial plateau, initial encounter ADDITIONAL CLINICAL INFORMATION: Ordering Provider Reason For Exam: S/P TIBIAL PLATEAU FX COMPARISON: X-ray right tibia-fibula 11/12/2024. FINDINGS: Redemonstrated open reduction with internal fixation of comminuted intra-articular proximal tibial fracture with plates and screws. The hardware appears intact and the alignment is unchanged. Distal tibiofibular syndesmotic fixation with a fibular plate and 2 screws are again seen. Pin tracks are noted at the tibia shaft. No acute fracture or dislocation. Interval seen multiple radiopaque findings within the lateral aspect of the distal thigh and medial aspect of the proximal leg soft tissue, likely antibiotic beads. Procedure Note Yefri Stafford MD - 11/26/2024 PROCEDURE: XR TIBIA FIBULA RIGHT 2VW, DATE/TIME OF EXAM: 59:34 AM, LOCATION [facility] INDICATION: S82.121A: Closed fracture of lateral portion of right tibial plateau, initial encounter ADDITIONAL CLINICAL INFORMATION: Ordering Provider Reason For Exam: S/P TIBIAL PLATEAU FX COMPARISON: X-ray right tibia-fibula 11/12/2024. FINDINGS: Redemonstrated open reduction with internal fixation of comminuted intra-articular proximal tibial fracture with plates and screws. The hardware appears intact and the alignment is unchanged. Distaltibiofibular syndesmotic fixation with a fibular plate and 2 screws are again seen.Pin tracks are noted at the tibia shaft. No acute fracture or dislocation. Interval seen multiple radiopaque findings within the lateral aspect ofthe distal thigh and medial aspect of the proximal leg soft tissue, likely antibiotic beads. IMPRESSION: Redemonstration of a proximal tibial fracture fixation and distal tibiofibular syndesmotic fixation, unchanged in alignment. Interval appearance of multiple radiopaque findings within the lateral aspect of the distal thigh and medial aspect of the proximal leg soft tissue, likely antibiotic beads. Report dictated by Luciano Woods MD, (Ndt Inspector). I, Yefri Stafford MD have personally reviewed and interpreted this examination/study. > Interpreting Provider: Yefri Stafford MD on 11/26/2024 10:29 AM Daryn North MD DIAGNOSTIC IMAGING O RDERABLES * (ABNORMAL) COMPREHENSIVE METABOLIC PANEL (11/26/2024 8:49 AM [facility]) Only the most recent of3 resultswithin the time period is included. BUN 23 7 - 26 mg/dL 11/26/2024 12:07 PM [facility] Creatinine 0.88 0.56 - 0.96 mg/dL 11/26/2024 12:07 PM [facility] Sodium 143 136 - 145 mmol/L 11/26/2024 12:07 PM [facility] Potassium 3.9 3.5 - 4.5 mmol/L 11/26/2024 12:07 PM [facility] Chloride 115(H) 98 - 107 mmol/L 11/26/2024 12:07 PM [facility] CO2 18(L) 22 - 29 mmol/L 11/26/2024 12:07 PM [facility] Glucose 83 70 - 99 mg/dL 11/26/2024 12:07 PM [facility] Calcium 9.1 8.4 - 10.2 mg/dL 11/26/2024 12:07 PM [facility] Protein Total 6.6 6.0 - 8.3 g/dL 11/26/2024 12:07 PM [facility] Albumin 2.9(L) 3.4 - 5.0 g/dL 11/26/2024 12:07 PM [facility] Bilirubin Total 0.3 0.2 - 1.2 mg/dL 11/26/2024 12:07 PM [facility] Alkaline Phosphatase 200(H) 40 - 150 U/L 11/26/2024 12:07 PM [facility] ALT 25 5 - 55 U/L 11/26/2024 12:07 PM [facility] AST 21 5 - 34 U/L 11/26/2024 12:07 PM [facility] Anion Gap 10 6 - 16 11/26/2024 12:07 PM [facility] BUN/Creatinine Ratio 26(H) 7 - 23 11/26/2024 12:07 PM [facility] Osmolality Calculated 299(H) 275 - 295 mOsm/kg 11/26/2024 12:07 PM [facility] Albumin/Globulin Ratio 0.8(L) 1.1 - 2.3 11/26/2024 12:07 PM [facility] eGFR by CKD-EPI 72(L) >=90 mL/min/1.7 3 m2 11/26/2024 12:07 PM [facility] Blood BLOOD SPECIMEN / Unknown Lab Venipuncture / Unknown 11/26/2024 8:49 AM [facility] 11/26/2024 11:42 AM [facility] Nikhil Godinez III, MD LAB - CHEMISTRY O RDERABLES Performing Organization Address City/[facility]/ZIP Co de Phone Number [address] [address], [place] [phone] * GLUCOSE - POINT OF CARE (11/20/2024 1:30 PM [facility]) Only the most recent of23 resultswithin the time period is included. Glucose WB/POC 95 70 - 99 mg/dL 11/20/2024 4:55 PM [facility] Specimen Type Cap Fingerstick 2024 4:55 PM [facility] Blood BLOOD SPECIMEN / Unknown 11/20/2024 1:30 PM [facility] 11/20/2024 4:55 PM [facility] Daryn North MD LAB - POINT OF CARE ORDERABLES [address] [address], [place] [phone] * (ABNORMAL) BASIC METABOLIC PANEL (CALCIUM TOTAL) (11/20/2024 12:49 AM [facility]) Only the most recent of14 resultswithin the time period is included. BUN 26 7 - 26 mg/dL 11/20/2024 1:59 AM [facility] Creatinine 0.98(H) 0.56 - 0.96 mg/dL 11/20/2024 1:59 AM [facility] Sodium 143 136 - 145 mmol/L 11/20/2024 1:59 AM [facility] Potassium 3.8 3.5 - 4.5 mmol/L 11/20/2024 1:59 AM [facility] Chloride 113(H) 98 - 107 mmol/L 11/20/2024 1:59 AM [facility] CO2 22 22 - 29 mmol/L 11/20/2024 1:59 AM [facility] Glucose 95 70 - 99 mg/dL 11/20/2024 1:59 AM [facility] Calcium 8.9 8.4 - 10.2 mg/dL 11/20/2024 1:59 AM [facility] Anion Gap 8 6 - 16 11/20/2024 1:59 AM [facility] BUN/Creatinine Ratio 27(H) 7 - 23 11/20/2024 1:59 AM [facility] Osmolality Calculated 301(H) 275 - 295 mOsm/kg 11/20/2024 1:59 AM [facility] eGFR by CKD-EPI 64(L) >=90 mL/min/1.7 3 m2 11/20/2024 1:59 AM [facility] Blood BLOOD SPECIMEN / Unknown Lab Venipuncture / Unknown 11/20/2024 12:49 AM [facility] 11/20/2024 1:28 AM [facility] Daryn North MD LAB - CHEMISTRY KONG JENSEN [facility] Organization Address City/State/ZIP Co de Phone Number [facility] [address] [place] [phone], [facility] [phone] * HEPATITIS C AB SCREEN RFLX NAAT QUANT (11/20/2024 12:48 AM [facility]) Hepatitis C Antibody Non-react juju Non-reac tive 11/20/2024 2:21 AM [facility] Comment: Hepatitis C Antibody screen indicates [...] Lab Venipuncture / Unknown 11/20/2024 12:48 AM [facility] 11/20/2024 1:18 AM [facility] Cathie Reyes MD LAB - CHEMISTRY KONG JENSEN [address] [address], [facility] [phone] * HIV-1 HIV-2 ANTIBODY + HIV P24 AG PANEL (11/20/2024 12:48 AM [facility]) Pathologist [facility] HIV Antigen/Antibod y 1 & 2 Non-reacti ve Non-react juju 11/20/2024 2:21 AM [facility] Comment:No Laboratory eviden ce of HIV infection. Blood BLOOD SPECIMEN / Unknown Lab Venipuncture / Unknown 11/20/2024 12:48 AM [facility] 11/20/2024 1:18 AM [facility] Cathie Reyes MD LAB - CHEMISTRY KONG JENSEN Performing Organization Address City/[facility]/ZIP Co de Phone Number [address] [address], [facility] [phone] * (ABNORMAL) CBC W/O DIFFERENTIAL (11/20/2024 12:48 AM [facility]) Only the most recent of15 resultswithin the time period is included. Pathologist [facility] WBC 7.7 4.0 - 10.7 x10E9/L 11/20/2024 1:35 AM [facility] RBC Count 2.88(L) 3.90 - 5.20 x10E12/L 11/20/2024 1:35 AM [facility] Hemoglobin 8.0(L) 11.9 - 15.8 g/dL 11/20/2024 1:35 AM [facility] Hematocrit 24.5(L) 34.8 - 46.1 % 11/20/2024 1:35 AM [facility] MCV 85.1 80.0 - 98.0 fL 11/20/2024 1:35 AM [facility] MCH 27.8 26.7 - 33.6 pg 11/20/2024 1:35 AM [facility] MCHC 32.7 31.7 - 36.3 g/dL 11/20/2024 1:35 AM [facility] RDW-CV 15.9(H) 11.3 - 14.8 % 11/20/2024 1:35 AM [facility] Platelet Count 269 150 - 420 x10E9/L 11/20/2024 1:35 AM [facility] MPV 11.4 7.8 - 11.4 fL 11/20/2024 1:35 AM [facility] NRBC 0.3(H) <=0.0 /100 WBC 11/20/2024 1:35 AM [facility] Blood BLOOD SPECIMEN / Unknown Lab Venipuncture / Unknown 11/20/2024 12:48 AM [facility] 11/20/2024 1:18 AM [facility] Daryn North MD LAB - HEMATOLOGY ORD ERABLES Performing Organization Address City/State/[facility] Co de Phone Number [facility] [address] [place] [phone], [facility] [phone] * HEPATITIS SCREEN ACUTE (11/20/2024 12:48 AM [facility]) Hepatitis A Virus Antibody IgM Non-react juju Non-reac tive 11/20/2024 2:21 AM [facility] Hepatitis B Virus Surface Antigen Non-react juju Non-reac tive 11/20/2024 2:21 AM [facility] Hepatitis B Core Virus Antibody IgM Non-react juju Non-reac tive 11/20/2024 2:21 AM [facility] Hepatitis C Antibody Non-react juju Non-reac tive 11/20/2024 2:21 AM [facility] Comment:Hepatitis C Antibody screen indicates no serologic evidence of past or current infection with Hepatitis C Virus. Patients with unexplained liver disease who are immunocompromised or suspected of having acute Hepatitis C infection may benefit from Nucleic Acid Test (KATIUSKA) for Hepatitis C Viral RNA to confirm Hepatitis C status. Blood BLOOD SPECIMEN / Unknown Lab Venipuncture / Unknown 11/20/2024 12:48 AM [facility] 11/20/2024 1:18 AM [facility] Cathie Reyes MD LAB - CHEMISTRY KONG JENSEN Performing Organization Address City/[facility]/ZIP Co de Phone Number [address] [address], [facility] [phone] * (ABNORMAL) HEMOGLOBIN (11/19/2024 3:37 PM [facility]) [facility] Hemoglobin 9.3(L) 11.9 - 15.8 g/dL 11/19/2024 4:07 PM [facility] Blood BLOOD SPECIMEN / Unknown Lab Venipuncture / Unknown 11/19/2024 3:37 PM [facility] 11/19/2024 3:44 PM [facility] Missy Melgar PA-C LAB - HEMATO LOGY ORDERABLES Performing Organization Address [facility]/ZIP Co de Phone Number [address] [address], [facility] [phone] * PREPARE (CROSSMATCH) RBC UNIT(S), 1 Units (11/19/2024 9:14 AM [facility]) Unit Description AS1 LR PRBC IRR [facility] BLOOD BANK LAB Unit ABO O [facility] BLOOD [facility] LAB Unit Rh NEG [facility] BLOOD [facility] LAB Product Number R04 [facility] B LOOD [facility]ANK LAB Unit Donor # [id number] [facility] BLOOD B[facility] LAB Unit Status transfused [facility] BLO OD BANK LAB Product Code [id number] [facility] BLO OD BANK LAB Blood Type Barcode 9500 [facility] Expiration Date [id number] S BLOOD BANK LAB Blood Bank BLOOD SPECIMEN / Unknown 11/19/2024 6:33 AM [employer] Daryn North MD LAB - BLOOD BANK ORD ERABLES Performing Organization Address City/[facility]/ZIP Co de Phone Number [facility]OD [facility] LAB [address] [place] [phone], [facility] [phone] * TYPE + SCREEN PANEL (11/19/2024 6:24 AM [employer]) Only the most recent of5 resultswithin the time period is included. [facility] Antibody Screen NEG 7:12 AM [employer] [facility] B[facility]OD [facility] ABO Rh O POS 11/19/2024 7:12 AM [facility] [facility] BLOOD BANK LAB Blood Bank BLOOD SPECIMEN / Unknown Venipuncture / Unknown 11/19/2024 6:24 AM [facility] 11/19/2024 6:33 AM [facility] [employer] Daryn North MD LAB - BLOOD BANK ORD ERABLES Performing Organization Address [facility] Co de Phone Number [facility] BLOOD BANK LAB [address] [place] [phone], [facility] [phone] * (ABNORMAL) HEPATIC FUNCTION PANEL (11/19/2024 12:15 AM [facility]) Only the most recent of2 resultswithin the time period is included. [facility] Protein Total 5.2(L) 6.0 - 8.3 g/dL 025 1:22 AM [facility]ORATORY [facility] Albumin 2.1(L) 3.4 - 5.0 g/dL 11/19/2024 1:22 AM [facility] Bilirubin Total 0.2 0.2 - 1.2 mg/dL 02/2025 1:22 AM [facility] Bilirubin Conjugated 0.1 0.1 - 0.5 mg/dL 11/19/2024 1:22 AM [facility] Bilirubin Unconjugated 0.1 Unconjugated Bilirubin is a calculated value: Reference ranges have not been established. mg/dL 11/19/2024 1:22 AM [facility] Alkaline Phosphatase 279(H) 40 - 150 U/L 11/19/2024 1:22 AM [facility] ALT 79(H) 5 - 55 U/L 11/19/2024 1:22 AM [facility] AST 71(H) 5 - 34 U/L 11/19/2024 1:22 AM [facility] Albumin/Globulin Ratio 0.7(L) 1.1 - 2.3 11/19/2024 1:22 AM [facility] Blood BLOOD SPECIMEN / Unknown Lab Venipuncture / Unknown 11/19/2024 12:15 AM [facility] 11/19/2024 12:50 AM [facility] [employer] Daryn North MD LAB - CHEMISTRY ORDE [facility] [address] [place] [address], [facility] [phone] * EKG 12-LEAD (11/18/2024 11:30 AM [facility] [facility] [facility]) Ventricular Rate 79 BPM SL MUSE Atrial Rate 79 BPM [facility] MUSE P-R Interval 150 ms [facility] MUSE QRS Duration ms 100 ms [facility] MUSE Q-T Interval ms 406 ms [facility] MUSE QTC Calculation (Bezet) 465 ms [facility] MUSE Calculated P Logan 26 degrees SL MUSE Calculated R Logan 9 degrees SL MUSE Calculated T Logan 26 degrees [facility] MUSE Interpretation EKG NORMAL SINUS RHYTHM NORMAL ECG NO PREVIOUS ECGS AVAILABLE Confirmed by FRANC RODRIGUEZ MD ([id number]) on 11/22/2024 11:50:41 PM [facility] MUSE 11/18/2024 11:3 0 AM [facility] 11/22/2024 11:50 PM [facility] Daryn North MD ECG ORDERABLES [facility] MUSE * VAS Bilateral Venous Duplex Le (11/17/2024 12:30 PM [facility]) Anatomical Region Laterality Modality Lower Extremity Ultrasound 11/17/2024 12:1 3 PM [facility] Narrative Procedure Note Segundo Clement MD - 11/17/2024 Daryn North MD VASCULAR LAB ORDERAB LES * (ABNORMAL) CULTURE WOUND+GRAM STAIN (11/17/2024 8:38 AM [facility]) Only the most recent of5 resultswithin the time period is included. Culture Light Enterobacter cloacae complex(A) JERILYN 11/19/2024 1:56 PM [facility] MICROBIOLOGY Gram Stain Heavy Red blood cells 11/19/2024 1:56 PM [facility] MICROBIOLOGY Gram Stain Rare Polymorphonuclear cells 11/19/2024 1:56 PM [facility] [employer] MICROBIOLOGY Gram Stain No organisms seen 025 1:56 PM [facility] MICROBIOLOGY Microbiology ENTIRE KNEE REGION / Unknown Collection / Unknown 11/17/2024 8:38 AM [facility] 11/17/2024 8:46 AM [facility] Narrative [facility] MICROBIOLOGY - 11/19/2024 1:56 PM [facility] Enterobacter cloacae, Citrobacter freundii, Klebsiella (formerly Enterobacter) [...] North MD LAB - MICROBIOLOGY O RDERABLES [facility] MICROBIOLOGY [address] [place] [address], [facility] [phone] * CULTURE ANAEROBE (11/17/2024 8:38 AM [facility]) Only the most recent of5 resultswithin the time period is included. Culture No anaerobic organisms isolated JERILYN 11/22/2024 1:20 PM [facility] MICROBIOLOGY Microbiology ENTIRE [place] REGION / Unknown Collection / Unknown 11/17/2024 8:38 AM [facility] [facility] 11/17/2024 8:46 AM [facility] Daryn North MD LAB - MICROBIOLOGY O RDERABLES [facility] MICROBIOLOGY [address] [place] [address], [facility] [phone] * ETT LINE PERFORMABLE (11/17/2024 7:55 AM [facility]) Narrative Sandro Corona DO - 11/17/2024 7:55 AM [facility] [facility] [facility] Sandro Corona DO 11/17/2024 7:56 AM Endotracheal Tube Placement: Patient Location: OR. Intubation Event Date/Time: 11/17/2024 7:45 AM Procedure: intubation ([id number]) Procedure Section: Sedation: under general anesthesia. Indications [...] TO MICROSCOPIC NO CULTURE (11/16/2024 1:08 PM [facility]) Color UA Straw Straw, Yellow 11/16/2024 1:29 PM [facility] Clarity UA Clear Clear 11/16/2024 1:29 PM [facility] Specific [place] UA 1.008 1.005 - 1.030 11/16/2024 1:29 PM [facility] pH UA 5.0 5.0 - 8.0 pH 11/16/2024 1:29 PM [facility] Protein UA Negative Negative 11/16/2024 1:29 PM [facility] Glucose UA Negative Negative 11/16/2024 1:29 PM [facility] Ketone UA Negative Negative 11/16/2024 1:29 PM [facility] Bilirubin UA Negative Negative 11/16/2024 1:29 PM [facility] Blood UA Negative Negative 11/16/2024 1:29 PM [facility] Nitrite UA Negative Negative 11/16/2024 1:29 PM [facility] Leukocyte Esterase Negative Negative 11/16/2024 1:29 PM [facility] Urobilinogen UA Negative Negative mg/dL 11/16/2024 1:29 PM [facility] RBC UA 0-2 None Seen, 0-2, 3-5 /HPF 11/16/2024 1:29 PM [facility] WBC UA 0-5 None Seen, 0-5 /HPF 11/16/2024 1:29 PM [facility] Squamous Epithelial Cells UA 0-2 None Seen, 0-2, 3-5 /HPF 11/16/2024 1:29 PM [facility] Urine URINE SPECIMEN OBTAINED BY CLEAN CATCH PROCEDURE / Unknown Collection / Unknown 11/16/2024 1:08 PM [facility] 11/16/2024 1:22 PM [facility] Narrative [facility] - 11/16/2024 1:29 PM [facility] Neftali Read MD LAB - URINALYS IS ORDERABLES [facility] [address] [place] [phone], [facility] [phone] * PROTEIN URINE RANDOM QUANTITATIVE (11/16/2024 1:08 PM [facility]) Protein Urine <7 Not Established mg/dL 11/16/2024 1:43 PM [facility] Urine URINE SPECIMEN OBTAINED BY CLEAN CATCH PROCEDURE / Unknown Collection / Unknown 11/16/2024 1:08 PM [facility] 11/16/2024 1:22 PM [facility] Neftali Read MD LAB - URINE CH EMISTRY ORDERABLES Performing Organization Address City/[facility]/ZIP Co de Phone Number [address] [address], [facility] [phone] * SODIUM URINE RANDOM (11/16/2024 1:08 PM [facility]) Sodium Urine 35 Not Established mmol/L 11/16/2024 1:43 PM [facility] Urine URINE SPECIMEN OBTAINED BY CLEAN CATCH PROCEDURE / Unknown Collection / Unknown 11/16/2024 1:08 PM [facility] 11/16/2024 1:22 PM [facility] Neftali Read MD LAB - URINE CH EMISTRY ORDERABLES Performing Organization Address [facility] Co de Phone Number [address] [phone], [facility] [phone] * UREA NITROGEN URINE RANDOM (11/16/2024 1:08 PM [facility]) Urea Nitrogen Random Urine 295 Not Established mg/dL 11/16/2024 1:43 PM [facility] Urine URINE SPECIMEN OBTAINED BY CLEAN CATCH PROCEDURE / Unknown Collection / Unknown 11/16/2024 1:08 PM [facility] 11/16/2024 1:22 PM [facility] Neftali Read MD LAB - URINE CH EMISTRY ORDERABLES Performing Organization Address [facility]/ZIP Co de Phone Number [address] [phone], [facility] [phone] * CREATININE URINE RANDOM (11/16/2024 1:08 PM [facility]) Creatinine Urine 44.87 Not Established mg/dL 11/16/2024 1:43 PM [facility] Urine URINE SPECIMEN OBTAINED BY CLEAN CATCH PROCEDURE / Unknown Collection / Unknown 11/16/2024 1:08 PM [facility] 11/16/2024 1:22 PM [facility] Neftali Read MD LAB - URINE CH EMISTRY ORDERABLES Performing Organization Address City/[facility]/ZIP Co de Phone Number [address] [address], [facility] [phone] * (ABNORMAL) VITAMIN D 25-HYDROXY (11/15/2024 12:56 AM [facility]) Only the most recent of2 resultswithin the time period is included. Vitamin D, 25 Hydroxy 25.9(L) 30.0 - 80.0 ng/mL 11/15/2024 3:11 AM [facility] Comment: The recommendations for 25-Hydroxy Vitamin [...] Lab Venipuncture / Unknown 11/15/2024 12:56 AM [facility] 11/15/2024 2:11 AM [facility] Sol Leal PA-C LAB - CHEMISTRY ORDERABLES [facility] [address] [place] [phone], [facility] [phone] * FOLATE (11/15/2024 12:56 AM [facility]) Folate 10.0 7.0 - 31.4 ng/mL 11/15/2024 3:11 AM [facility] Blood BLOOD SPECIMEN / Unknown Lab Venipuncture / Unknown 11/15/2024 12:56 AM [facility] 11/15/2024 2:11 AM [facility] Sol Deterding PA-C LAB - CHEMISTRY ORDERABLES [address] [address], [place] [phone] * VITAMIN B12 (11/15/2024 12:56 AM [facility]) Vitamin B12 583 213 - 816 pg/mL 11/15/2024 3:11 AM [facility] Blood BLOOD SPECIMEN / Unknown Lab Venipuncture / Unknown 11/15/2024 12:56 AM [facility] 11/15/2024 2:11 AM [facility] Sol Deterding PA-C LAB - CHEMISTRY ORDERABLES Performing Organization Address [facility] Co de Phone Number [address] [address], [place] [phone] * (ABNORMAL) IRON + TRANSFERRIN PANEL (11/15/2024 12:56 AM [facility]) Iron 19(L) 40 - 150 ug/dL 11/15/2024 3:01 AM [facility] Transferrin 151(L) 174 - 382 mg/dL 11/15/2024 3:01 AM [facility] Transferrin Saturation % 10(L) 16 - 50 % 11/15/2024 3:01 AM [facility] TIBC Calculated 189(L) 240 - 450 ug/dL 11/15/2024 3:01 AM [facility] Blood BLOOD SPECIMEN / Unknown Lab Venipuncture / Unknown 11/15/2024 12:56 AM [facility] 11/15/2024 2:07 AM [facility] Sol Deterding PA-C LAB - CHEMISTRY ORDERABLES Performing Organization Address City/[facility]/ZIP Co de Phone Number [address] [address], [place] [phone] * (ABNORMAL) FERRITIN (11/15/2024 12:56 AM [facility]) Ferritin 668(H) 13 - 204 ng/mL 11/15/2024 3:19 AM [facility] Blood BLOOD SPECIMEN / Unknown Lab Venipuncture / Unknown 11/15/2024 12:56 AM [facility] 11/15/2024 2:07 AM [facility] Sol Leal PA-C LAB - CHEMISTRY ORDERABLES Performing Organization Address City/[facility]/ZIP Co de Phone Number [address] [address], [place] [phone] * HEMOGLOBIN A1C (11/14/2024 4:18 PM [facility]) Hemoglobin A1c 5.0 <=5.6 % 11/14/2024 5:30 PM [facility] Estimated Average Glucose 97 mg/dL 11/14/2024 5:30 PM [facility] Comment: HbA1c Interpretation: Normal : < 5.7% Pre-diabetes: 5.7-6.4% Diabetes: Equal to or greater than 6.5% Test results diagnostic of diabetes should be repeated for confirmation. Treatment target values recommended by ADA and other clinical organizations should be used to evaluate metabolic control in patients. Reference: [place] [employer], Standards of Care in Diabetes -2020 In patients 70 years and older consider HbA1c target range of 7.0-7.5% (Reference: Samy Cunningham, et al. JAMDA. 2012) The Sebia assay for the measurement of HbA1c is a National Glycohemoglobin Standardization Program (NGSP) certified method. Blood BLOOD SPECIMEN / Unknown Lab Venipuncture / Unknown 11/14/2024 4:18 PM [facility] 11/14/2024 4:33 PM [facility] Daryn North MD LAB - CHEMISTRY KONG JENSEN Performing Organization Address City/[facility]/ZIP Co de Phone Number [address] [address], [place] [phone] * ETT LINE PERFORMABLE (11/14/2024 7:57 AM [facility]) Narrative Mauro Miguel Anes Asst - 11/14/2024 7:57 AM [facility] Mauro Miguel Anes Asst 11/14/2024 7:57 AM Endotracheal Tube Placement: Patient Location: OR. Intubation Event Date/Time: 11/14/2024 7:33 AM Procedure: intubation ([id number]) Procedure Section: Sedation: IV sedation. Indications for [...] CBC W AUTO DIFFERENTIAL (11/14/2024 6:47 AM [facility]) Only the most recent of2 resultswithin the time period is included. WBC 7.3 4.0 - 10.7 x10E9/L 11/14/2024 7:45 AM [facility] RBC Count 3.30(L) 3.90 - 5.20 x10E12/L 11/14/2024 7:45 AM [facility] Hemoglobin 8.9(L) 11.9 - 15.8 g/dL 11/14/2024 7:45 AM [facility] Hematocrit 27.8(L) 34.8 - 46.1 % 11/14/2024 7:45 AM [facility] MCV 84.2 80.0 - 98.0 fL 11/14/2024 7:45 AM [facility] MCH 27.0 26.7 - 33.6 pg 11/14/2024 7:45 AM [facility] 32.0 31.7 - 36.3 g/dL 11/14/2024 7:45 AM [facility] RDW-CV 14.9(H) 11.3 - 14.8 % 11/14/2024 7:45 AM [facility] Platelet Count 11/14/2024 7:45 AM [facility] Comment:Platelets clumped on slide but appears adequate. Recommend repeat with a sodium citrate blue top tube. MPV 11/14/2024 7:45 AM [facility] Comment:Unable to report Neutrophil % 73.6 41.0 - 74.0 % 11/14/2024 7:45 AM [facility] Lymphocyte % 16.6(L) 17.0 - 47.0 % 11/14/2024 7:45 AM [facility] Monocyte % 8.4 3.0 - 11.0 % 11/14/2024 7:45 AM [facility] Eosinophil % 0.8 0.0 - 7.0 % 11/14/2024 7:45 AM [facility] Basophil % 0.3 0.0 - 1.6 % 11/14/2024 7:45 AM [facility] Immature Granulocytes % 0.3 0.0 - 1.0 % 11/14/2024 7:45 AM [facility] Neutrophil Absolute 5.34 1.60 - 7.50 x10E9/L 11/14/2024 7:45 AM [facility] Lymphocyte Absolute 1.20 1.00 - 4.40 x10E9/L 11/14/2024 7:45 AM [facility] Monocyte Absolute 0.61 0.15 - 1.00 x10E9/L 11/14/2024 7:45 AM [facility] Eosinophil Absolute 0.06 0.00 - 0.60 x10E9/L 11/14/2024 7:45 AM [facility] Basophil Absolute 0.02 0.00 - 0.13 x10E9/L 11/14/2024 7:45 AM [facility] Blood BLOOD SPECIMEN / Unknown Venipuncture / Unknown 11/14/2024 6:47 AM [facility] 11/14/2024 6:54 AM [facility] Flaco Rebollar MD LAB - HEMATOLOGY ORD ERABLES [address] [id number] [place] [address], [facility] [phone] * XR Wrist Left 3Vw or More (11/12/2024 9:24 AM [facility]) Anatomical Region Laterality Modality Wrist / Hand Radiographic Christa ging 11/12/2024 9:34 AM [facility] Impressions 11/12/2024 9:36 AM [facility] IMPRESSION: Mildly displaced distal radial fracture. > Interpreting Provider: Yefri Stafford MD on 11/12/2024 9:36 AM Narrative 11/12/2024 9:36 AM [facility] PROCEDURE: XR WRIST LEFT 3VW OR MORE [...] * [place] [facility] (10/10/2024 11:01 AM [facility]) Only the most recent of3 resultswithin the time period is included. Narrative [facility] RADIOLOGY - 10/10/2024 11:02 AM [facility] Fluoroscopy was used for this exam in the OR. Please see the Operative report. Daryn North MD FLUOROSCOPY ORDERABL ES [facility] RADIOLOGY * IV PLACEMENT PERFORMABLE (10/10/2024 8:22 AM [facility]) Narrative Karol Dunn APRN-CRNA - 10/10/2024 8:22 AM [facility] Karol Dunn APRN-CRNA 10/10/2024 8:23 AM Peripheral IV Line Placement: Patient Location: OR Procedure: IV start ([id number]) Procedure Section: Skin Prep: alcohol. Orientation: left Location: forearm Catheter Gauge: 18 Number of Attempts: 1. Procedure Tolerance: performed while patient under general anesthesia. Staff Section Anesthesia Provider: Karol Dunn APRN-CRNA, Performed the procedure Joey Oneal MD GENERAL ANESTHESIA O RDERABLES * ETT LINE PERFORMABLE (10/10/2024 8:22 AM [facility]) Narrative Karol Dunn APRN-CRNA - 10/10/2024 8:22 AM [facility] Karol Dunn APRN-CRNA 10/10/2024 8:22 AM Endotracheal Tube Placement: Patient Location: OR. Intubation Event Date/Time: 10/10/2024 7:43 AM Procedure: intubation ([id number]) Procedure Section: Sedation: under general anesthesia. Indications [...] AM. Staff Section Anesthesia Provider: Karol Dunn APRN-AGENCY SALES DEVELOPMENT ASSOCIATE, Performed the procedure Joey Oneal MD GENERAL ANESTHESIA O RDERABLES * XR Knee Right 2Vw or Less (09/21/2024 11:00 AM [facility]) Only the most recent of2 resultswithin the time period is included. Anatomical Region Laterality Modality Lower Extremity Digital Radiogra phy 09/21/2024 7:17 PM [facility] Impressions 09/21/2024 7:18 PM [facility] IMPRESSION: Comminuted fracture of the proximal tibia with interval placement of traction pin in the distal femoral diaphysis. > Interpreting Provider: Natalio Nam on 09/21/2024 7:18 PM Narrative 09/21/2024 7:18 PM [facility] PROCEDURE: XR KNEE RIGHT 2VW OR LESS [...] PM Marifer Saeed MD DIAGNOSTIC IMAGING O [facility] * IV PLACEMENT PERFORMABLE (09/19/2024 4:47 PM [facility]) Karol Cat APRN-CRNA - 09/19/2024 4:47 PM [facility] Karol Dunn APRN-CRNA 09/19/2024 4:47 PM Peripheral IV Line Placement: Patient Location: OR Insertion Time: 09/19/2024 4:39 PM Procedure: IV start ([id number]) Procedure Section: Skin Prep: alcohol. Orientation: left Location: hand Catheter Gauge: 20 Number of Attempts: 1. Procedure Tolerance: performed while patient under general anesthesia. Staff Section Anesthesia Provider: Karol Dunn APRN-CRNA, Performed the procedure Chelsey Minaya MD GENERAL ANESTHESIA O [place] * ETT LINE PERFORMABLE (09/19/2024 4:46 PM [facility]) Karol Cat APRN-CRNA - 09/19/2024 4:46 PM [facility] Karol Dunn APRN-CRNA 09/19/2024 4:47 PM Endotracheal Tube Placement: Patient Location: OR. Intubation Event Date/Time: 09/19/2024 4:23 PM Procedure: intubation ([id number]) Procedure Section: Sedation: under general anesthesia. Indications [...] PM. Staff Section Anesthesia Provider: Karol Dunn, CONNIE-AGENCY SALES DEVELOPMENT ASSOCIATE, Performed the procedure Chelsey Minaya MD GENERAL ANESTHESIA O RDERABLES * CT Tibia Fibula Right Wo Cont (09/19/2024 1:14 AM [facility]) Anatomical Region Laterality Modality Lower Extremity Computed Tomogra phy 09/19/2024 1:28 AM [facility] Impressions 09/19/2024 1:47 AM [facility] IMPRESSION: 1.Acute comminuted and moderately displaced fracture of the proximal tibia with intra-articular extension involving the medial and lateral tibial plateaus. 2.Soft tissue swelling about the knee and proximal lower leg with small volume hemarthrosis. Report dictated by Valentín Zheng MD (radiology receptionist). I, Alejandro Hung MD have personally reviewed and interpreted this examination/study. > Interpreting Provider: Alejandro Hung MD on 09/19/2024 1:47 AM Narrative 09/19/2024 1:47 AM [facility] PROCEDURE: CT KNEE RIGHT WO CONTRAST, CT TIBIA FIBULA RIGHT WO CONT, DATE/TIME OF EXAM: 09/19/2024 1:15 AM, LOCATION [facility] INDICATION: M79.604: Right leg pain ADDITIONAL CLINICAL INFORMATION: Ordering Provider Reason For Exam: eval fracture (accession [id number]), fracture (accession [id number]) COMPARISON: Right knee and right tibia-fibula radiographs [...] DATE/TIME OF EXAM: 09/19/2024 1:15 AM, LOCATION [facility] INDICATION: M79.604: Right leg pain ADDITIONAL CLINICAL INFORMATION: Ordering Provider Reason For Exam: eval fracture (accession [id number]), fracture (accession [id number]) COMPARISON: Right knee and right tibia-fibula radiographs [...] hemarthrosis. Report dictated by Valentín Zheng MD (radiology receptionist). I, Alejandro Hung MD have personally reviewed and interpreted this examination/study. > Interpreting Provider: Alejandro Hung MD on 09/19/2024 1:47 AM Adeola Carreon MD CT ORDERABLES * CT Knee Right Wo Contrast (09/19/2024 1:14 AM [facility]) Anatomical Region Laterality Modality Lower Extremity Computed Tomogra phy 09/19/2024 1:28 AM [facility] Impressions 09/19/2024 1:47 AM [facility] IMPRESSION: 1.Acute comminuted and moderately displaced fracture of the proximal tibia with intra-articular extension involving the medial and lateral tibial plateaus. 2.Soft tissue swelling about the knee and proximal lower leg with small volume hemarthrosis. Report dictated by Valentín Zheng MD (radiology receptionist). I, Alejandro Hung MD have personally reviewed and interpreted this examination/study. > Interpreting Provider: Alejandro Hung MD on 09/19/2024 1:47 AM Narrative 09/19/2024 1:47 AM [facility] PROCEDURE: CT KNEE RIGHT WO CONTRAST, CT TIBIA FIBULA RIGHT WO CONT, DATE/TIME OF EXAM: 09/19/2024 1:15 AM, LOCATION [facility] INDICATION: M79.604: Right leg pain ADDITIONAL CLINICAL INFORMATION: Ordering Provider Reason For Exam: eval fracture (accession [id number]), fracture (accession [id number]) COMPARISON: Right knee and right tibia-fibula radiographs [...] DATE/TIME OF EXAM: 09/19/2024 1:15 AM, LOCATION [facility] INDICATION: M79.604: Right leg pain ADDITIONAL CLINICAL INFORMATION: Ordering Provider Reason For Exam: eval fracture (accession [id number]), fracture (accession [id number]) COMPARISON: Right knee and right tibia-fibula radiographs [...] hemarthrosis. Report dictated by Valentín Zheng MD (radiology receptionist). I, Alejandro Hung MD have personally reviewed and interpreted this examination/study. > Interpreting Provider: Alejandro Hung MD on 09/19/2024 1:47 AM Adeola Carreon MD CT ORDERABLES * XR Foot Right 3Vw or More (09/19/2024 12:45 AM [facility]) Anatomical Region Laterality Modality Ankle / Foot Digital Radiogra phy 09/19/2024 1:25 AM [facility] Narrative 09/19/2024 9:28 AM [facility] PROCEDURE: XR FOOT RIGHT 3VW OR MORE, DATE/TIME OF EXAM: 09/19/2024 12:45 AM, [facility] [facility] INDICATION: M79.604: Right leg pain ADDITIONAL [...] MORE, DATE/TIME OF EXAM: 2:45 AM, LOCATION [facility] INDICATION: M79.604: Right leg pain ADDITIONAL [...] LIMITED Exam Date: 07/01/2024 9:47 AM Location: [facility] Indication: R10.10: Upper abdominal pain, unspecified Findings: [...] LIMITED Exam Date: 07/01/2024 9:47 AM Location: [facility] Indication: R10.10: Upper abdominal pain, unspecified Findings: [...] on 07/01/2024 10:03 AM Jacinto Jaramillo MD US ORDERABLE S * PATHOLOGY TISSUE (05/30/2024 9:55 AM CDT) Case Report Surgical Pathology Report Case: [id number] Authorizing Provider: Balwinder Goncalves MD Collected: 05/30/2024 09:55 AM Ordering Location: [facility] ENDOSCOPY Received: 05/30/2024 11:05 AM Pathologist: Joey Solorzano MD Specimens: A) - Gastric, gastric bx R/O H pylori B) - Esophagus, distal esophageal bx R/O EOE C) - Esophagus, proximal esophageal bx R/O EOE D) - Polyp Cecum, cecal polyp x 2 06/02/2024 10:55 AM CDT [facility] Final Diagnosis Stomach, biopsy (A): [...] Tubular adenoma(s), fragmented 06/02/2024 10:55 AM CDT [facility] Microscopic Description and Comment Microscopic examination substantiates the final diagnosis. 06/02/2024 10:55 AM CDT [facility] Clinical History The patient is [...] and biopsies were taken. 06/02/2024 10:55 AM CDT [facility] Gross Description The requisition [...] toto in a single cassette labeled D1. RB 06/02/2024 10:55 AM T [facility] Pathologist Location at [facility] 06/02/2024 10:55 AM T [facility] Disclaimer The performance characteristics of all immunohistochemical and indirect immunofluorescence stains (if any) cited in this report were determined by the Histopathology Laboratory of [facility]. Some of these tests were developed by [...] attending (teaching) pathologist. 06/02/2024 10:55 AM CDT [facility] Embedded Images 06/02/2024 10:55 AM T [facility] Biopsy, NOS GASTRIC CONTENTS [...] - PATHOLOGY/CYTO LOGY ORDERABLES Performing Organization Address City/State/[facility] Co de Phone Number [facility] [address] [phone] * EGD (05/30/2024 9:44 AM CDT) Report Endoscopy POC Endoscopy Department Report _ Patient Name: Savanna Veliz Procedure Date: 05/30/2024 9:44 AM Date of : 1960 Classification: Outpatient Gender: Female Ethnicity: Not or Race: White _ Providers: Balwinder Goncalves MD, Nai Ford MD (Fellow) Referring MD: Bandar Smith DO, Antonio Cheesman Rocca, MD Procedure: Upper GI endoscopy Indications: Dysphagia, [...] non-kay portions. Procedure Code(s): --- Professional --- 75456, Esophagogastroduo denoscopy, flexible, transoral; with biopsy, single or multiple Diagnosis Code(s): --- Professional --- K44.9, Diaphragmatic hernia without obstruction or gangrene R13.10, Dysphagia, unspecified R12, Heartburn CPT copyright 2021 [employer]. All rights reserved. The codes documented in this report are preliminary and upon certified professional coder review may be revised to meet current compliance requirements. Balwinder Goncalves MD 05/30/2024 10:37:46 AM This report has been signed electronically. Note Initiated On: 05/30/2024 9:44 AM Number of Addenda: [address] [facility] 05/30/2024 9:44 AM CDT Balwinder Goncalves MD GI PROCEDURE ORDERAB LES [facility] [place] * ENDOSCOPY, COLON, SCREENING (05/30/2024 9:42 AM [...] the patient. Procedure Code(s): --- Professional --- 42532, Colonoscopy, flexible; with removal of tumor(s), polyp(s), or other lesion(s) by snare technique 71032, 59, Colonoscopy, flexible; with biopsy, single or multiple Diagnosis Code(s): --- Professional --- Z12.11, Encounter for screening for malignant neoplasm of colon D12.0, Benign neoplasm of cecum CPT copyright 2021 [employer]. All rights reserved. The codes documented in this report are preliminary and upon certified professional coder review may be revised to meet current compliance requirements. Balwinder Goncalves MD 05/30/2024 10:32:28 AM This report has been signed electronically. Note Initiated On: 05/30/2024 9:42 AM Number of Addenda: [address] [employer] 05/30/2024 9:42 AM CDT Balwinder Goncalves MD GI PROCEDURE ORDERAB LES [facility] * XR FOOT LEFT [...] LINE PERFORMABLE (03/15/2021 8:11 AM CDT) Narrative Schuyler Melgar APRN-CRNA - 03/15/2021 8:11 AM CDT Schuyler Melgar APRN-CRNA 03/15/2021 8:12 AM Endotracheal Tube Placement: Patient Location: OR. Procedure: intubation (59345). Procedure Section: Sedation: under general anesthesia. Indications [...] No. Staff Section Anesthesia Provider: Schuyler Melgar APRN-AGENCY SALES DEVELOPMENT ASSOCIATE, Performed the procedure Additional Comments: DVOI x [...] minutes. 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
--- OUTSIDE RECORDS SUMMARY | 2024-11-27 13:30 | XMS_ITS | Encounter Summary ---
Author Organization [facility] Address [address] [place] [address] Care Team Providers Care Microfilm Machine Operator Name Role Phone Geovanni Rodriguez DO Primary Care Provider [phone] Encounter Details Date Type Department Care Team (Late st Contact Info) Description 11/26/2024 Orders Only [facility] - Orthopedics [address] [place] [address], [place] [address] Daryn North MD [address] [place] [address] [place] [address] Closed fracture of lateral portion of right tibial plateau, initial encounter Social History Tobacco Use Types Packs/Day Years Used Date Smoking Tobacco: Former Cigarettes 2 13 1 2 - 1984 Smokeless Tobacco: Never Alcohol Use Standard Drinks/Week Comments Not Currently [...] Recorded Patient Health Questionnaire-2 Score 1 11/26/2024 [facility] of Occupat ional Health - Occupational Stress [...] any time in the past 12 m [facility], were you homeless or living in a half-way (including now)? No 11/15/2024 Sex and Gender Information Value Date Recorded Sex Assigned at Female 06/03/2023 3:57 PM CDT Gender Identity Female 06/03/2023 3:57 PM CDT Sexual Orientation Not on file documented as of this encounter Functional Status Functional Status Response Date of [...] person have difficulty concentrating/remembering/making decisions? No 11/15/2024 documented as of this encounter Plan of Treatment Upcoming Encounters Date Type Department Care Team (Late st Contact Info) Description 12/02/2024 1:40 PM [employer] Office Visit [facility] - Rheumatology [address] [place] [phone] Meryl Cuenca MD [address] [place] [address] [address] [place] [phone] 12/03/2024 10:15 AM [employer] Office Visit [facility] - Orthopedics [address] [place] [address] [place] [phone] Daryn North MD [address] [place] [address] [place] [address] 12/25/2024 10:00 AM CDT [facility] [address] [place] [phone] Missy Vogel PA-C [address] [place] [phone] 01/15/2025 10:00 AM CDT Office Visit [facility] - GI [address] [place] [phone] documented as of this encounter Goals Goal Patient Goal Type Associated Problems Recent Progress Patient-Stated? Author Mobility General On track( 025 10:37 AM [employer]) Ayaka Siegel, RN Note: Expected end date: 10/14/21 The goal is to maintain or improve your mobility at the optimum level for you. Interventions: documented as of this encounter Results * XR Tibia Fibula Right 2Vw (11/26/2024 9:34 AM [employer]) Anatomical Region Laterality Modality Lower Extremity Computed Radiogr aphy 11/26/2024 10:0 0 AM [employer] Impressions 11/26/2024 10:29 AM [employer] IMPRESSION: Redemonstration of a proximal tibial fracture fixation and distal tibiofibular syndesmotic fixation, unchanged in alignment. Interval appearance of multiple radiopaque findings within the lateral aspect of the distal thigh and medial aspect of the proximal leg soft tissue, likely antibiotic beads. Report dictated by Luciano Woods MD, (Auto Body Repairman). I, Yefri Groves MD have personally reviewed and interpreted this examination/study. > Interpreting Provider: Yefri Groves MD on 11/26/2024 10:29 AM Narrative 11/26/2024 10:29 AM [employer] PROCEDURE: XR TIBIA FIBULA RIGHT 2VW, DATE/TIME OF EXAM: 11/26/2024 9:34 AM, LOCATION [facility] INDICATION: S82.121A: Closed fracture of lateral portion [...] tissue, likely antibiotic beads. Procedure Note Yefri Groves MD - 11/26/2024 PROCEDURE: XR TIBIA FIBULA RIGHT 2VW, DATE/TIME OF EXAM: 59:34 AM, LOCATION [facility] INDICATION: S82.121A: Closed fracture of lateral portion [...] beads. Report dictated by Luciano Woods MD, (Auto Body Repairman). I, Yefri Groves MD have personally reviewed and interpreted this examination/study. > Interpreting Provider: Yefri Groves MD on 11/26/2024 10:29 AM Daryn North MD DIAGNOSTIC IMAGING O RDERABLES documented in this encounter Visit Diagnoses Diagnosis Closed fracture of lateral portion of right tibial plateau, initial encounter- Primary Closed fracture of lateral portion of right tibial plateau, initial encounter documented in this encounter Care Teams Microfilm Machine Operator Relationship Specialty Start Date End Date Geovanni Rodriguez DO [address] [place] [phone] PCP - General Internal Medicine 09/19/24 documented as of this encounter
--- OUTSIDE RECORDS SUMMARY | 2024-11-27 13:30 | XMS_ITS | Clinical Summary ---
Author Organization Unknown Care Team Providers Care Candy Cooker Helper Name Role Phone ALONZOKIRA Unavailable Unavailable DARLENE PHYSICAL THERAPIST, SADIQ Unavailable Unavailable KAYKAY CONVEYOR WORKER, CHERYL Unavail able Unavailable ALYSON REGISTERED NURSE BUSINESS MACHINE OPERATOR, PEDRO Meena vailable Unavailable NICKERSON OCCUPATIONAL THERAPIST, ALEXANDER Unavailable Unavailable Payers Payer Name Policy Type Policy Number Effective Date Expira tion Date MEDICARE [place] - EPISODIC [id number] Problems Condition Name Condition Details Condition Category [...] OF NICOTINE DEPENDENCE Active 10-15 00:00: 00 ACRYLIC FABRICATOR (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) USE OF 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 Active 10-15 00:00: 00 HISTORY OF FALLING Active 10-15 00:00: 00 DISPL BICONDYLAR FX R TIBIA, SUBS FOR CLOS FX W ROUTN HEAL Active 2023-10 00:00: 00 Allergies, Adverse Reactions, Alerts Allergy [...] 2023-10 00:00: 00 10-22 23:59 :00 No [id number] PAIN 2 tablet EVERY 6 HOURS 2 tablet EVERY 6 HOURS (route: oral) Med Classific ation: Analgesic , Anti-infl ammatory or Antipyret ic amlodipine 5 mg tablet 2023-10 00:00: 00 Yes [id number] HTN 1 tablet ONCE DAILY 1 tablet ONCE DAILY (route: oral) Med Classific ation: Cardiovas cular Therapy Agents aspirin 325 mg tablet 2023-10 00:00: 00 10-22 23:59 :00 No [id number] PREVENT BLOOD CLOTS 1 tablet TWICE DAILY 1 tablet TWICE DAILY (route: oral) Med Classific ation: Analgesic , Anti-infl ammatory or Antipyret ic atorvastati n 20 mg tablet 2023-10 00:00: 00 Yes [id number] HLD 1 tablet ONCE DAILY 1 tablet ONCE DAILY (route: oral) Med Classific ation: Cardiovas cular Therapy Agents cyclobenzap rine 5 mg tablet 2023-10 00:00: 00 11-20 23:59 :00 No [id number] MUSCLE SPASMS 1 tablet 3 TIMES DAILY 1 tablet 3 TIMES DAILY (route: oral) Med Classific ation: Locomotor System docusate sodium 100 mg capsule 2023-10 00:00: 00 11-20 23:59 :00 No [id number] CONSTIPATIO N 1 capsule TWICE DAILY 1 capsule TWICE DAILY (route: oral) Med Classific ation: Gastroint estinal Therapy Agents famotidine 40 mg tablet 2023-10 00:00: 00 Yes [id number] ACID REFLUX 1 tablet ONCE DAILY 1 tablet ONCE DAILY (route: oral) Med Classific ation: Gastroint estinal Therapy Agents hydrochloro thiazide 25 mg tablet 2023-10 00:00: 00 11-20 23:59 :00 No [id number] DIURESIS 1 tablet ONCE DAILY 1 tablet ONCE DAILY (route: oral) Med Classific ation: Cardiovas cular Therapy Agents losartan 100 mg tablet 2023-10 00:00: 00 11-20 23:59 :00 No [id number] HTN 1 tablet ONCE DAILY 1 tablet ONCE DAILY (route: oral) Med Classific ation: Cardiovas cular Therapy Agents oxycodone 5 mg tablet 2023-10 00:00: 00 10-22 23:59 :00 No [id number] PAIN 1 tablet EVERY 6 HOURS 1 tablet EVERY 6 HOURS (route: oral) Med Classific ation: Analgesic , Anti-infl ammatory or Antipyret ic Senna Lax 8.6 mg tablet 2023-10 00:00: 00 Yes [id number] CONSTIPATIO N 1 tablet ONCE DAILY 1 tablet ONCE DAILY (route: oral) Med Classific ation: Gastroint estinal Therapy Agents Vitamin D3 25 mcg (1,000 unit) capsule 2023-10 00:00: 00 Yes [id number] LOW VITAMIN D 1 capsule ONCE DAILY 1 capsule ONCE DAILY (route: oral) Med Classific ation: Electroly te Balance-N utritiona l Products aspirin 81 mg tablet,ana yed release 10-22 00:00: 00 Yes [id number] PREVENT BLOOD CLOTS 1 tablet TWICE DAILY 1 tablet TWICE DAILY (route: oral) Med Classific ation: Hematolog ical Agents clindamycin HCl 300 mg capsule 10-22 00:00: 00 11-06 23:59 :00 No [id number] PREVENT WOUND INFECTION 1 capsule 4 TIMES DAILY 1 capsule 4 TIMES DAILY (route: oral) Med Classific ation: Anti-Infe ctive Agents oxycodone-a cetaminophe n 5 mg-325 mg tablet 10-22 00:00: 00 11-20 23:59 :00 No [id number] RIGHT KNEE PAIN 1 tablet EVERY 6 HOURS 1 tablet EVERY 6 HOURS (route: oral) Med Classific ation: Analgesic , Anti-infl ammatory or Antipyret ic cefepime 2 gram solution for injection 11-20 00:00: 00 Yes [id number] RLE WOUND INFECTION 2 g EVERY 8 HOURS 2 g EVERY 8 HOURS (route: injection) Alternate Route: IV PUSH. Med Classific ation: Anti-Infe ctive Agents Heparin Lock Flush (Porcine) (PF) 100 unit/mL intravenous syringe 11-20 00:00: 00 Yes [id number] IF LINE BECOMES SLUGGISH 3-5 mL ONCE DAILY 3-5 mL ONCE DAILY (route: intravenou s) Alternate Route: IV PUSH. Med Classific ation: Hematolog ical Agents Normal Saline Flush 0.9 % injection syringe 11-20 00:00: 00 Yes [id number] KEEP LINE PATENT 20 mL EVERY 8 HOURS 20 mL EVERY 8 HOURS (route: injection) Alternate Route: IV PUSH. Med Classific ation: Electroly te Balance-N utritiona l Products oxycodone 5 mg tablet - 00:00: 00 Yes [id number] RIGHT LEG PAIN 1 tablet EVERY 4 HOURS 1 tablet EVERY 4 HOURS (route: oral) Med Classific ation: Analgesic , Anti-infl ammatory or Antipyret ic gabapentin 300 mg capsule 1-24 00:00: 00 Yes [id number] RLE NERVE PAIN 1 capsule 3 TIMES DAILY 1 capsule 3 TIMES DAILY (route: oral) Med Classific ation: Central Nervous System Agents Immunizations Ordered Immunization Name Filled Immunization Name Date Status Comments Refusal Reason INFLUENZA, TIV (INACTIVATED) 2024-07-02 00:00:00 Vital Signs Vital Name Observation Time Observation Value Commen ts Temperature 2024-11-25 09:12:00.000 98.8 [degF] Temperature 2024-11-24 14:57:00.000 98.1 [degF] Temperature 2024-11-24 12:57:00.000 98.1 [degF] Temperature 2024-11-22 13:08:00.000 97.6 [degF] [...] [in_us] Height 2024-10-15 11:36:00.000 66 [in_us] Pulse 2024-11-25 09:12:00.000 68 /min Pulse 2024-11-24 14:57:00.000 80 /min Pulse 2024-11-24 12:57:00.000 80 /min Pulse 2024-11-22 13:08:00.000 83 /min [...] 2024-10-15 11:36:00.000 79 /min O2 Saturation (%) 2024-11-25 09:12:00.000 98 % O2 Saturation (%) 2024-11-24 14:57:00.000 98 % O2 Saturation (%) 2024-11-24 12:57:00.000 98 % O2 Saturation (%) 2024-11-22 13:08:00.000 [...] Saturation (%) 2024-10-15 11:36:00.000 94 % Respirations 2024-11-25 09:12:00.000 18 /min Respirations 2024-11-24 14:57:00.000 18 /min Respirations 2024-11-24 12:57:00.000 18 /min Respirations 2024-11-22 13:08:00.000 18 /min [...] 2024-10-15 11:36:00.000 213 [lb_av] Systolic Blood Pressure 2024-11-25 09:12:00.000 138 mm [Hg] Systolic Blood Pressure 2024-11-24 14:57:00.000 122 mm [Hg] Systolic Blood Pressure 2024-11-24 12:57:00.000 122 mm [Hg] Systolic Blood Pressure 2024-11-22 [...] 11:36:00.000 118 mm [Hg] Diastolic Blood Pressure 2024-11-25 09:12:00.000 82 mm [Hg] Diastolic Blood Pressure 2024-11-24 14:57:00.000 70 mm [Hg] Diastolic Blood Pressure 2024-11-24 12:57:00.000 70 mm [Hg] Diastolic Blood Pressure 2024-11-22 [...] CLINIC BY SUREGEON AT FOLLOW UP APPT. [code = HOME [...] UP APPT. ] Future Scheduled Test [facility] TIFYING PHYSICIAN, ASSOCIATED PHYSICIAN, NPP OR PA [...] WILL BE ESTABLISHED THAT MEETS ALL PATIENT'S FDC NEEDS AND COUNTER SIGNED BY PHYSICIAN. Goal [...] Date: 2024 by PEDRO SHIELDS REGISTERED NURSE BUSINESS MACHINE OPERATOR]:</paragraph><paragraph>PTNT BEING SEEN BY SN FOR SURGICAL SITE [...] DR. FUENTES (PCP), 12/25 [facility]; 01/15 [facility]. PTNT STABLE AT DEPARTURE FROM HOME. PTNT/CG VERBALIZED UNDERSTANDING OF ALL EDUCATION PROVIDED. PTNT/CG DENY ADDITIONAL QUESTIONS/CONCERNS AND VERBALIZE SATISFACTION WITH CARE AT END OF VISIT.</paragraph> <paragraph>[Visit Date: 2024 by PEDRO SHIELDS REGISTERED NURSE BUSINESS MACHINE OPERATOR]:</paragraph><paragraph>PTNT BEING SEEN BY SN FOR RIGHT TIBIA FX. ANNMARIE AFTER HOSPITAL STAY AT [facility] FROM 11/14-11/20. PTNT HAD 2 ID TO [...] +2 EDEMA BLE, +2 PEDAL PULSES. PAIN 2/10 RIGHT KNEE. PTNT DENIES, CHEST PAIN, FEVER, [...] [facility]; 01/15 [facility]. PTNT STABLE AT SN DEPARTURE FROM HOME. PTNT/CG VERBALIZED UNDERSTANDING OF ALL EDUCATION PROVIDED. PTNT/CG DENY ADDITIONAL QUESTIONS/CONCERNS AND VERBALIZE SATISFACTION WITH CARE AT END OF VISIT.</paragraph> Encounters Start Date/Time End Date/Time Encounter Type Admission Type Attending [facility] [[email or web address] Department Encounter ID Discharge Date Discharge Status Discharge Condition Discharge Reason Percent Goals Met 2024-10-15 00:00:00 2024-12-13 00:00:00 Outpatient PEDRO VIVAS [facility] [id number]
--- OUTSIDE RECORDS SUMMARY | 2024-11-27 13:30 | XMS_ITS | Encounter Summary ---
Author Organization [facility] Address [address] [place] [address] Care Team Providers Care Form Maker Plaster Name Role Phone Geovanni Rodriguez DO Primary Care Provider [phone] Reason for Visit * Reason Comments Hospital Discharge Encounter Details Date Type Department Care Team (Late st Contact Info) Description 11/26/2024 8:00 AM SPRAY BOOTH OPERATOR Office Visit Transitional Care at [facility] [address] [place] [phone] Nikhil Godinez III, MD [address] [place] [phone] Surgical site infection (Primary Dx); Elevated LFTs Social History Tobacco Use Types Packs/Day Years Used Date Smoking Tobacco: Former Cigarettes 2 13 1 972 - 1984 Smokeless Tobacco: Never Alcohol Use [...] Recorded Patient Health Questionnaire-2 Score 1 11/26/2024 [facility] [place] of Occupat ional Health - Occupational Stress [...] any time in the past 12 m [facility], were you homeless or living in a penitentiary (including now)? No 11/15/2024 Sex and Gender Information Value Date Recorded Sex Assigned at Female 06/03/2023 3:57 PM CDT Gender Identity Female 06/03/2023 3:57 PM CDT Sexual Orientation Not on file documented as of this encounter Last Filed Vital Signs Vital Sign Reading Time Taken Comments Blood Pressure 138/73 11/26/2024 7:43 AM SPRAY BOOTH OPERATOR Pulse 70 11/26/2024 7:43 AM SPRAY BOOTH OPERATOR Temperature 36.7 C (98 F) 11/26/2024 7:43 AM SPRAY BOOTH OPERATOR Respiratory Rate 18 11/26/2024 7:43 AM SPRAY BOOTH OPERATOR Oxygen Saturation 97% 11/26/2024 7:43 AM SPRAY BOOTH OPERATOR Inhaled Oxygen Concentration - - Weight - - Height 167.6 cm (5' 6 ) 11/26/2024 7:43 AM SPRAY BOOTH OPERATOR Body Mass Index - - documented in this encounter Functional Status Functional Status Response [...] No 11/15/2024 documented as of this encounter Patient Instructions * Patient Instructions* Adeola Pratt DO - 11/26/2024 8:43 AM SPRAY BOOTH OPERATOR -START taking ciprofloxacin 500mg TWO TIMES DAILY on 12/02/2024 -STOP taking atorvastatin 20mg as this can impact your liver enzymes, follow with your PCP -Bring BP log to your PCP -Follow up with GI in January for your liver enzymes Y BOOTH OPERATOR documented in this encounter Progress Notes * Adeola Pratt DO - 11/26/2024 7:51 AM CST Ambulatory Discharge Clinic Note Date of Service: 11/26/2024 CC: discharge follow-up Assessment and Plan: 64 year old F with pmhx CKD2, HTN, HLD who presents to [facility] after hospitalization for surgical site infxn. #R Tibial Plateau Fracture c/b surgical wound dehiscence #Surgical Site Infection A: -11/14/24: s/p R knee I&D. Intra-op cx +E. Cloacae complex -11/17/2024 right tibial plateau fracture surgical wound irrigation and excisional debridement, skin,subcutaneous tissue and superficial fascia, antibiotic bead placement, wound VAC placement; cultures grew Enterobacter cloacae complex. -ID recs: 6 weeks cefepime with transition to PO ciprofloxacin for chronic ppx for at least 3-4 mo P: -Continue cefepime EOT 12/01 via midline -Will rx 1 month supply Cipro 500 BID to start after cefepime completed, given patient will not seeID until December. Patient verbalized understanding to not start this medication until cefepime completed. -Will follow with ortho this afternoon -Will follow up with ID in December, ID to refill ciprofloxacin for remaining duration needed #Elevated LFTs A: -AST 373->71 & ALT 292->79 and Alk phos 292->279 -RUQ US 06/2024 showing cholecystectomy -Hep A, B, C negative 11/20/2024 -Patient reports liver enzymes have been elevated for years x20 years, was seeing GI and they retired, was thought to be 2/2 copious pain medications -Denies EtOH use P: -Repeat LFTs today -Scheduled with GI 01/14/2025 -Hold atorvastatin 20mg #HTN #Venous Insufficiency A: -stopped HCTZ & losartan on dispo -Home readings: 120/70, no dizziness or lightheadedness -Patient reports intermittent swelling in legs, improved elevation and compression stockings P: -Continue to hold BP meds -Take BP log at home and bring to PCP appointment -Encouraged continued compression stockings & elevating legs Future Appointments Monday December 02, 2024 1:40 PM (Arrive by 1:25 PM) Appointment with Meryl Cuenca at [facility] - Rheumatology ([phone]) [address] [place] [phone] Tuesday December 10, 2024 10:15 AM Appointment with Daryn North at [facility] - Orthopedics ([phone]) [address] [place] [phone] December 10:00 AM (Arrive by 9:45 AM) Appointment with Missy Vogel I at [facility] - Infectious Disease ([phone]) [address] [place] [phone] January 10:00 AM Appointment with [facility] at [facility] - GI ([phone]) [address] [place] [phone] As directed Lab: COMPREHENSIVE METABOLIC PANEL Complexity of Medical Decision-Making: moderate Patient discussed with attending physician, Dr. Choe, who agrees with my assessment and plan. Subjective: Savanna Veliz is an 64 year old female who presents for follow up after recent hospital admission for Surgical site infxn Patient's medical problems include: Patient Active Problem List: Arthralgia of right ankle Fracture of lateral malleolus of right fibula at syndesmosis Plantar fasciitis UMA positive Primary osteoarthritis of right ankle Closed fracture of right tibia and fibula, initial encounter Date of Initial Inpatient Discharge: 11/21/2024 Date of Successful Post-Discharge Communication with Patient: 11/25/24 Date(s) of Unsuccessful Post-Discharge Communication with Patient (Document at least 2 attempts): n/a Date of [id number] Visit: 11/26/2024 Meat Sales And Storage Manager used: N (Y/N) If yes, Meat Sales And Storage Manager Name/ID#: n/a Previous Report(s) Reviewed: office notes, lab reports Hospital discharge summary Brief hospital course: 64 year old F with pmhx CKD2, HTN, HLD who presents to bridge clinic after hospitalization for surgical site infxn. Patient underwent R I&D on 11/14 with ortho and wash out 11/17. ID was consulted and recommended cefepime until 12/01 followed by chronic ppx with cipro there after. Hospital course was c/b elevated LFTs which down trended prior to dispo. Today's visit was focused on the following issues: Surgical site infection Elevated LFTs HTN Since discharge, feels like things have been going well. Has been using wheel chair and walker for ambulation. Has home health care and PT/OT. Home care removed the wound vac on Sunday, has been changing the bandage 1x daily. Reports her LFTs have chronically been elevated due to pain meds and was following with GI doctor in the past who has since retired. Reports she was getting tylenol inpatient which spikes her liver enzymes, she does not drink EtOH. Reports pain has been well controlled since discharge. Past Medical/Surgical/Family/History History: Reviewed and updated in Epic History tab Medication Reconciliation:Reviewed and updated in Epic Medications tab Current Outpatient Medications Medication Sig Dispense Refill amLODIPine (Norvasc) 5 MG tablet Take 1 (one) tablet by mouth once daily Reasons: High Blood Pressure aspirin (Aspirin) 325 MG tablet Take 1 (one) tablet by mouth 2 times daily 100 tablet 0 cefepime (Maxipime) injection 2,000 (two thousand) mg by Intravenous route every 8 hours for 11 days ciprofloxacin (Cipro) 500 MG tablet Take 1 (one) tablet by mouth 2 times daily 60 tablet 0 famotidine (Pepcid) 40 MG tablet Take 1 (one) tablet by mouth at bedtime for 60 days 30 tablet 1 gabapentin (Neurontin) 300 MG capsule Take 1 (one) capsule by mouth 3 times daily 90 capsule 1 Gauze Pads & Dressings ([place] Dressings) 4 X14 PADS Use 1 Pad every 2 days 30 Each 0 Gauze Pads & Dressings (Gauze Dressing) 4 X4 PADS Dry gauze, nonadherent. 25 Each 1 omeprazole (PRILOSEC) 40 MG capsule Take 1 (one) capsule by mouth once daily oxyCODONE, immediate release, (Roxicodone) 5 MG tablet Take 1 (one) tablet by mouth every 4 hours as needed 42 tablet 0 vitamin D3 (Cholecalciferol) 25 MCG (1000 UNITS) tablet Take 1 (one) tablet by mouth once daily 90 tablet 0 No current facility-administered medications for this visit. I reconciled the patient's medications during this visit and the above list is accurate. Allergies: Reviewed and updated in Epic Allergies Tab Review of systems: Review of Systems Constitutional: Negative for chills and fever. Respiratory: Negative for cough and shortness of breath. Cardiovascular: Positive for leg swelling. Negative for chest pain. Gastrointestinal: Negative for constipation and diarrhea. Genitourinary: Negative for dysuria and hematuria. Musculoskeletal: Positive for joint pain. Negative for falls. Objective: Physical Exam: BP 138/73 (BP Location: Right arm, Patient Position: Sitting) Pulse 70 Temp 98 ??F (36.7 ??C) (Temporal) Resp 18 Ht 1.676 m (5' 6 ) SpO2 97% ; Body mass index is 31.8 kg/m??. Physical Exam Constitutional: General: She is not in acute distress. Appearance: Normal appearance. HENT: Head: Normocephalic and atraumatic. Right Ear: External ear normal. Left Ear: External ear normal. Nose: Nose normal. Eyes: General: No scleral icterus. Extraocular Movements: Extraocular movements intact. Conjunctiva/sclera: Conjunctivae normal. Cardiovascular: Rate and Rhythm: Normal rate and regular rhythm. Pulmonary: Effort: Pulmonary effort is normal. Breath sounds: Normal breath sounds. No wheezing. Abdominal: General: Abdomen is flat. Palpations: Abdomen is soft. Tenderness: There is no abdominal tenderness. Musculoskeletal: Cervical back: Normal range of motion. Right lower leg: No edema. Left lower leg: No edema. Comments: R knee with clean and dry bandages, no surrounding erythema. Skin: General: Skin is warm. Coloration: Skin is not jaundiced. Comments: Midline present LUE with clean and dry bandage surrounding, no erythema or tenderness to palpation Neurological: General: No focal deficit present. Mental Status: She is alert and oriented to person, place, and time. Psychiatric: Mood and Affect: Mood normal. Behavior: Behavior normal. Other Relevant Data: Reviewed in Epic Lab Preference: [facility] INSURANCE BILL [id number] [facility] [id number] Adeola Pratt DO 11/26/2024 Y BOOTH OPERATOR Associated attestation - Evelia Choe MD - 11/26/2024 10:48 AM SPRAY BOOTH OPERATOR I have seen and examined the patient with the resident and I agree with the findings and plan of care as documented by the resident. Corrections/Additions: R Tibial Plateau Fracture c/b surgical wound dehiscence #Surgical Site Infection: given 30 days of cipro as ID appt not until next month. Pain controlled, ortho f/u today #Elevated LFTs: has GI appt 01/2025 and atorvastatin held (discussed with patient) #HTN: continue to hold home medications, take BP logs. Date of Service: 11/26/2024 Evelia Choe MD General Internal Medicine documented in this encounter Plan of Treatment Upcoming Encounters Date Type Department Care Team (Late st Contact Info) Description 12/02/2024 1:40 PM SPRAY BOOTH OPERATOR Office Visit [facility] - Rheumatology [address] [place] [address], [place] [phone] Meryl Cuenca MD [address] [place] [phone] 12/03/2024 10:15 AM SPRAY BOOTH OPERATOR Office Visit [facility] - Orthopedics [address] [place] [address], [place] [phone] Daryn North MD [address] [place] [address] DIV [place] [address] 12/25/2024 10:00 AM CDT Office Visit [facility] - Infectious Disease [address] [place] [address], [place] [phone] Missy Vogel PA-C [address] [place] [phone] 01/15/2025 10:00 AM CDT Office Visit [facility] - GI [address] [place] [address], [place] [phone] documented as of this encounter Goals Goal Patient Goal Type Associated Problems Recent Progress Patient-Stated? Author Mobility General On track( 025 10:37 AM SPRAY BOOTH OPERATOR) Ayaka Siegel, RN Note: Expected end date: 10/14/21 The goal is to maintain or improve your mobility at the optimum level for you. Interventions: documented as of this encounter Procedures Procedure Name Priority Date/Time Associated Diagnosis Comments COMPREHENSIVE METABOLIC PANEL Routine 11/26/2024 8:49 AM SPRAY BOOTH OPERATOR Elevated LFTs documented in this encounter Results * (ABNORMAL) COMPREHENSIVE METABOLIC PANEL (11/26/2024 8:49 AM SPRAY BOOTH OPERATOR) BUN 23 7 - 26 mg/dL 11/26/2024 12:07 PM [facility]3] LAB[facility]ATORY [facility] Creatinine 0.88 0.56 - 0.96 mg/dL 11/26/2024 12:07 PM [facility]3] [facility]ATORY [facility] Sodium 143 136 - 145 mmol/L 11/26/2024 12:07 PM [facility]3] [facility]ATORY [facility] Potassium 3.9 3.5 - 4.5 mmol/L 11/26/2024 12:07 PM [facility] Chloride 115(H) 98 - 107 mmol/L 11/26/2024 12:07 PM [facility] CO2 18(L) 22 - 29 mmol/L 11/26/2024 12:07 PM [facility] Glucose 83 70 - 99 mg/dL 11/26/2024 12:07 PM [facility] Calcium 9.1 8.4 - 10.2 mg/dL 11/26/2024 12:07 PM [facility] Protein Total 6.6 6.0 - 8.3 g/dL 11/26/2024 12:07 PM [facility] Albumin 2.9(L) 3.4 - 5.0 g/dL 11/26/2024 12:07 PM [facility] Bilirubin Total 0.3 0.2 - 1.2 mg/dL 11/26/2024 12:07 PM [facility] Alkaline Phosphatase 200(H) 40 - 150 U/L 11/26/2024 12:07 PM [facility] ALT 25 5 - 55 U/L 11/26/2024 12:07 PM [facility] AST 21 5 - 34 U/L 11/26/2024 12:07 PM [facility] Anion Gap 10 6 - 16 11/26/2024 12:07 PM [facility] BUN/Creatinine Ratio 26(H) 7 - 23 11/26/2024 12:07 PM [facility] Osmolality Calculated 299(H) 275 - 295 mOsm/kg 11/26/2024 12:07 PM [facility] Albumin/Globulin Ratio 0.8(L) 1.1 - 2.3 11/26/2024 12:07 PM [facility] eGFR by CKD-EPI 72(L) >=90 mL/min/1.7 3 m2 11/26/2024 12:07 PM [facility] Blood BLOOD SPECIMEN / Unknown Lab Venipuncture / Unknown 11/26/2024 8:49 AM SPRAY BOOTH OPERATOR 11/26/2024 11:42 AM SPRAY BOOTH OPERATOR Nikhil Godinez III, MD LAB - CHEMISTRY O RDERABLES [facility] [address] [place] [address], [facility] [phone] documented in this encounter Visit Diagnoses Diagnosis Surgical site infection- Primary Elevated LFTs Other abnormal blood chemistry documented in this encounter Care Teams Form Maker Plaster Relationship Specialty Start Date End Date Geovanni Rodriguez DO [address] [place] [address] PCP - General Internal Medicine 09/19/24 documented as of this encounter
--- OUTSIDE RECORDS SUMMARY | 2024-11-27 13:30 | XMS_ITS | Encounter Summary ---
Author Organization [facility] Address [address] [facility] [place] [address] Care Team Providers Care Bead Wire Insulator Name Role Phone Geovanni Rodirguez DO Primary Care Provider [phone] Encounter Details Date Type Department Care Team (Late st Contact Info) Description 11/26/2024 10:30 AM VETERINARY SURGERY TECHNOLOGIST Office Visit [facility] - Orthopedics [address] [place] [address] [place] [phone] Daryn North MD [address] [place] [place] [address] [place] [address] Surgical site infection Social History Tobacco Use Types Packs/Day Years [...] Recorded Patient Health Questionnaire-2 Score 1 11/26/2024 [facility] of Occupat ional Health - Occupational Stress [...] any time in the past 12 m [facility], were you homeless or living in a [facility] (including now)? No 11/15/2024 Sex and Gender Information Value Date Recorded Sex Assigned at Female 06/03/2023 3:57 PM CDT Gender Identity Female 06/03/2023 3:57 PM CDT Sexual Orientation Not on file documented as of this encounter Last Filed Vital Signs Vital Sign Reading Time Taken Comments Blood Pressure - - Pulse - - Temperature - - Respiratory Rate - - Oxygen Saturation - - Inhaled Oxygen Concentration - - Weight 89.4 kg (197 lb) 11/26/2024 9:39 AM VETERINARY SURGERY TECHNOLOGIST Height 167.6 cm (5' 6 ) 11/26/2024 9:39 AM VETERINARY SURGERY TECHNOLOGIST Body Mass Index 31.8 11/26/2024 9:39 AM VETERINARY SURGERY TECHNOLOGIST documented in this encounter Functional Status Functional [...] st Contact Info) Description 12/02/2024 1:40 PM VETERINARY SURGERY TECHNOLOGIST Office Visit [facility] - Rheumatology [address] [place] [phone] Meryl Cuenca MD [address] [place] [address] [place] [phone] 12/03/2024 10:15 AM VETERINARY SURGERY TECHNOLOGIST Office Visit [facility] - Orthopedics [address] [place] [phone] Daryn North MD [address] [place] [place] [address] [place] [address] 12/25/2024 10:00 AM CDT Office Visit [facility] - Infectious Disease [address] [place] [phone] Missy Vogel PA-C [address] [place] [phone] 01/15/2025 10:00 AM CDT Office Visit [facility] - GI [address] [place] [phone] documented as of this encounter Goals Goal Patient Goal Type Associated Problems Recent Progress Patient-Stated? Author Mobility General On track( 025 10:37 AM VETERINARY SURGERY TECHNOLOGIST) Ayaka Siegel, RN Note: Expected end date: 10/14/21 The goal is to maintain or improve your mobility at the optimum level for you. Interventions: documented as of this encounter Visit Diagnoses Diagnosis Surgical site infection documented in this encounter Care Teams Bead Wire Insulator Relationship Specialty Start Date End Date Geovanni Rodriguez DO [address] [place] [address] PCP - General Internal Medicine 09/19/24 documented as of this encounter
--- OUTSIDE RECORDS SUMMARY | 2024-11-27 13:30 | XMS_ITS | Encounter Summary ---
Author Organization [facility] Address [address] [facility] [place] [address] Care Team Providers Care Lidar Technician Name Role Phone Geovanni Rodriguez Nadja GARCIA Primary Care Provider [phone] Encounter Details Date Type Department Care Team (Late st Contact Info) Description 11/26/2024 9:24 AM MOTOR INSTALLER - 11/26/2024 11:59 PM [facility] Hospital Encounter [facility] DI[facility] [address] [facility] [place] [address] Daryn North MD [facility] [place] [address] Discharge Disposition: Home or Self Care Social History Tobacco Use Types Packs/Day Years Used Date Smoking Tobacco: Former Cigarettes 2 13 1 972 - 1985 Smokeless Tobacco: Never Alcohol Use Standard Drinks/Week [...] Recorded Patient Health Questionnaire-2 Score 1 11/26/2024 [facility] - Occupational [...] any time in the past 12 m [facility], were you homeless or living in a prison (including now)? No 11/15/2024 Sex and Gender [...] No 11/15/2024 documented as of this encounter Medications at Time of Discharge Medication Sig Dispensed Refills Start Date End Date amLODIPine (Norvasc) 5 MG tabletIndications:Hyp ertension Take 1 (one) tablet by mouth once daily Reasons: High Blood Pressure aspirin (Aspirin) 325 MG tablet Take 1 (one) tablet by mouth 2 times daily 100 tablet 11/20/2024 cefepime (Maxipime) injection 2,000 (two thousand) mg by Intravenous route every 8 hours for 11 days 11/20/2024 12/01/2024 ciprofloxacin (Cipro) 500 MG tabletIndications:Margret gical site infection Take 1 (one) tablet by mouth 2 times daily 60 tablet 11/26/2024 famotidine (Pepcid) 40 MG tablet Take 1 (one) tablet by mouth at bedtime for 60 days 30 tablet 1 11/26/2024 01/25/2025 gabapentin (Neurontin) 300 MG capsule Take 1 (one) capsule by mouth 3 times daily 90 capsule 1 11/07/2024 Gauze Pads & Dressings ([place] Dressings) 4 X14 PADS Use 1 Pad every 2 days 30 Each 10/13/2024 Gauze Pads & Dressings (Gauze Dressing) 4 X4 PADS Dry gauze, nonadherent. 25 Each 1 10/13/2024 omeprazole (PRILOSEC) 40 MG capsule Take 1 (one) capsule by mouth once daily 12/29/2020 oxyCODONE, immediate release, (Roxicodone) 5 MG tabletIndications:Wou nd dehiscence Take 1 (one) tablet by mouth every 4 hours as needed 42 tablet 11/20/2024 vitamin D3 (Cholecalciferol) 25 MCG (1000 UNITS) tablet Take 1 (one) tablet by mouth once daily 90 tablet 09/23/2024 documented as of this encounter Plan of Treatment Upcoming Encounters Date Type Department Care Team (Late st Contact Info) Description 12/02/2024 1:40 PM MOTOR INSTALLER [facility] [address] [place] [phone] Meryl Cuenca MD [address] [place] [address] [address] [place] [phone] 12/03/2024 10:15 AM MOTOR INSTALLER Office Visit [facility] - Orthopedics [address] [place] [address], [place] [phone] Daryn North MD [address] [place] [address] DIV [place] [address] 12/25/2024 10:00 AM CDT Office Visit [facility] - Infectious Disease [address] [place] [address], [place] [phone] Missy Vogel PA-C [address] [place] [address] 01/15/2025 10:00 AM CDT Office Visit [facility] - GI [address] [place] [address], [place] [phone] documented as of this encounter Goals Goal Patient Goal Type Associated Problems Recent Progress Patient-Stated? Author Mobility General On track( 025 10:37 AM MOTOR INSTALLER) Ayaka Siegel, RN Note: Expected end date: 10/14/21 The goal is to maintain or improve your mobility at the optimum level for you. Interventions: documented as of this encounter Procedures Procedure Name Priority Date/Time Associated Diagnosis Comments XR TIBIA FIBULA RIGHT 2VW Routine 11/26/2024 9:34 AM MOTOR INSTALLER Closed fracture of lateral portion of right tibial plateau, initial encounter documented in this encounter Results * XR Tibia Fibula Right 2Vw (11/26/2024 9:34 AM MOTOR INSTALLER) Anatomical Region Laterality Modality Lower Extremity Computed Radiogr aphy 11/26/2024 10:0 0 AM MOTOR INSTALLER Impressions 11/26/2024 10:29 AM MOTOR INSTALLER IMPRESSION: Redemonstration of a proximal tibial fracture fixation and distal tibiofibular syndesmotic fixation, unchanged in alignment. Interval appearance of multiple radiopaque findings within the lateral aspect of the distal thigh and medial aspect of the proximal leg soft tissue, likely antibiotic beads. Report dictated by Luciano Woods MD, (Writer). I, Yefri Groves MD have personally reviewed and interpreted this examination/study. > Interpreting Provider: Yefri Groves MD on 11/26/2024 10:29 AM Narrative 11/26/2024 10:29 AM MOTOR INSTALLER PROCEDURE: XR TIBIA FIBULA RIGHT 2VW, DATE/TIME OF EXAM: 11/26/2024 9:34 AM, LOCATION [facility] INDICATION: S82.121A: Closed fracture of lateral portion [...] 2VW, DATE/TIME OF EXAM: 59:34 AM, LOCATION [facility] INDICATION: S82.121A: Closed fracture of lateral portion [...] beads. Report dictated by Luciano Woods MD, (Writer). I, Yefri Groves MD have personally reviewed and interpreted this examination/study. > Interpreting Provider: Yefri Groves MD on 11/26/2024 10:29 AM Daryn North MD DIAGNOSTIC IMAGING [facility] documented in this encounter Visit Diagnoses Diagnosis Closed fracture of lateral portion of right tibial plateau, initial encounter documented in this encounter Care Teams Lidar Technician Relationship Specialty Start Date End Date Geovanni Rodriguez DO [address] [place] [address] PCP - General Internal Medicine 09/19/24 documented as of this encounter
--- OUTSIDE RECORDS SUMMARY | 2024-11-27 13:30 | XMS_ITS | Clinical Summary ---
Author Organization Unknown Care Team Providers Care Spice Grinder Name Role Phone ALONZOKIRA Unavailable Unavailable DARLENE PHYSICAL THERAPIST, SADIQ Unavailable Unavailable KAYKAY LOG SORTING SUPERVISOR, CHERYL Unavail able Unavailable [facility] REGISTERED NURSE DEPARTMENTAL SECRETARY, PEDRO Meena vailable Unavailable NICKERSON OCCUPATIONAL THERAPIST, ALEXANDER Unavailable Unavailable Payers Payer Name Policy Type Policy Number Effective Date Expira tion Date MEDICARE [place] - EPISODIC [id number] Problems Condition Name Condition Details Condition Category [...] OF NICOTINE DEPENDENCE Active 10-15 00:00: 00 METERMAN (CURRENT) USE OF ASPIRIN Active 10-15 00:00: [...] 2023-10 00:00: 00 10-22 23:59 :00 No [id number] PAIN 2 tablet EVERY 6 HOURS 2 tablet EVERY 6 HOURS (route: oral) Med Classific ation: Analgesic , Anti-infl ammatory or Antipyret ic amlodipine 5 mg tablet 2023-10 00:00: 00 Yes [id number] HTN 1 tablet ONCE DAILY 1 tablet ONCE DAILY (route: oral) Med Classific ation: Cardiovas cular Therapy Agents aspirin 325 mg tablet 2023-10 00:00: 00 10-22 23:59 :00 No [id number] PREVENT BLOOD CLOTS 1 tablet TWICE DAILY 1 tablet TWICE DAILY (route: oral) Med Classific ation: Analgesic , Anti-infl ammatory or Antipyret ic atorvastati n 20 mg tablet 2023-10 00:00: 00 Yes [id number] HLD 1 tablet ONCE DAILY 1 tablet ONCE DAILY (route: oral) Med Classific ation: Cardiovas cular Therapy Agents cyclobenzap rine 5 mg tablet 2023-10 00:00: 00 11-20 23:59 :00 No [id number] MUSCLE SPASMS 1 tablet 3 TIMES DAILY 1 tablet 3 TIMES DAILY (route: oral) Med Classific ation: Locomotor System docusate sodium 100 mg capsule 2023-10 00:00: 00 11-20 23:59 :00 No [id number] CONSTIPATIO N 1 capsule TWICE DAILY 1 capsule TWICE DAILY (route: oral) Med Classific ation: Gastroint estinal Therapy Agents famotidine 40 mg tablet 2023-10 00:00: 00 Yes [id number] ACID REFLUX 1 tablet ONCE DAILY 1 tablet ONCE DAILY (route: oral) Med Classific ation: Gastroint estinal Therapy Agents hydrochloro thiazide 25 mg tablet 2023-10 00:00: 00 11-20 23:59 :00 No [id number] DIURESIS 1 tablet ONCE DAILY 1 tablet ONCE DAILY (route: oral) Med Classific ation: Cardiovas cular Therapy Agents losartan 100 mg tablet 2023-10 00:00: 00 11-20 23:59 :00 No [id number] HTN 1 tablet ONCE DAILY 1 tablet ONCE DAILY (route: oral) Med Classific ation: Cardiovas cular Therapy Agents oxycodone 5 mg tablet 2023-10 00:00: 00 10-22 23:59 :00 No [id number] PAIN 1 tablet EVERY 6 HOURS 1 tablet EVERY 6 HOURS (route: oral) Med Classific ation: Analgesic , Anti-infl ammatory or Antipyret ic Senna Lax 8.6 mg tablet 2023-10 00:00: 00 Yes [id number] CONSTIPATIO N 1 tablet ONCE DAILY 1 tablet ONCE DAILY (route: oral) Med Classific ation: Gastroint estinal Therapy Agents Vitamin D3 25 mcg (1,000 unit) capsule 2023-10 00:00: 00 Yes [id number] LOW VITAMIN D 1 capsule ONCE DAILY 1 capsule ONCE DAILY (route: oral) Med Classific ation: Electroly te Balance-N utritiona l Products aspirin 81 mg tablet,ana yed release 10-22 00:00: 00 Yes [id number] PREVENT BLOOD CLOTS 1 tablet TWICE DAILY 1 tablet TWICE DAILY (route: oral) Med Classific ation: Hematolog ical Agents clindamycin HCl 300 mg capsule 10-22 00:00: 00 11-06 23:59 :00 No [id number] PREVENT WOUND INFECTION 1 capsule 4 TIMES DAILY 1 capsule 4 TIMES DAILY (route: oral) Med Classific ation: Anti-Infe ctive Agents oxycodone-a cetaminophe n 5 mg-325 mg tablet 10-22 00:00: 00 11-20 23:59 :00 No [id number] RIGHT KNEE PAIN 1 tablet EVERY 6 HOURS 1 tablet EVERY 6 HOURS (route: oral) Med Classific ation: Analgesic , Anti-infl ammatory or Antipyret ic cefepime 2 gram solution for injection 11-20 00:00: 00 Yes [id number] RLE WOUND INFECTION 2 g EVERY 8 HOURS 2 g EVERY 8 HOURS (route: injection) Alternate Route: IV PUSH. Med Classific ation: Anti-Infe ctive Agents Heparin Lock Flush (Porcine) (PF) 100 unit/mL intravenous syringe 11-20 00:00: 00 Yes [id number] IF LINE BECOMES SLUGGISH 3-5 mL ONCE DAILY 3-5 mL ONCE DAILY (route: intravenou s) Alternate Route: IV PUSH. Med Classific ation: Hematolog ical Agents Normal Saline Flush 0.9 % injection syringe 11-20 00:00: 00 Yes [id number] KEEP LINE PATENT 20 mL EVERY 8 HOURS 20 mL EVERY 8 HOURS (route: injection) Alternate Route: IV PUSH. Med Classific ation: Electroly te Balance-N utritiona l Products oxycodone 5 mg tablet - 00:00: 00 Yes [id number] RIGHT LEG PAIN 1 tablet EVERY 4 HOURS 1 tablet EVERY 4 HOURS (route: oral) Med Classific ation: Analgesic , Anti-infl ammatory or Antipyret ic gabapentin 300 mg capsule 1-24 00:00: 00 Yes [id number] RLE NERVE PAIN 1 capsule 3 TIMES [...] UP APPT. ] Future Scheduled Test [facility] TIFYING PHYSICIAN, ASSOCIATED PHYSICIAN, NPP OR PA [...] WILL BE ESTABLISHED THAT MEETS ALL PATIENT'S INTERMEDIATE NEEDS AND COUNTER SIGNED BY PHYSICIAN. Goal [...] Date: 2024 by PEDRO SHIELDS REGISTERED NURSE DEPARTMENTAL SECRETARY]:</paragraph><paragraph>PTNT BEING SEEN BY SN FOR SURGICAL SITE [...] DR. FUENTES (PCP), 12/25 [facility]; 01/15 [facility]. PTNT STABLE AT DEPARTURE FROM HOME. PTNT/CG VERBALIZED UNDERSTANDING OF ALL EDUCATION PROVIDED. PTNT/CG DENY ADDITIONAL QUESTIONS/CONCERNS AND VERBALIZE SATISFACTION WITH CARE AT END OF VISIT.</paragraph> <paragraph>[Visit Date: 2024 by PEDRO SHIELDS REGISTERED NURSE DEPARTMENTAL SECRETARY]:</paragraph><paragraph>PTNT BEING SEEN BY SN FOR RIGHT TIBIA FX. ANNMARIE AFTER HOSPITAL STAY AT [facility] FROM 11/14-11/20. PTNT HAD 2 ID TO [...] End Date/Time Encounter Type Admission Type Attending [facility] Department Encounter ID Discharge Date Discharge Status Discharge Condition Discharge Reason Percent Goals Met 2024-10-15 00:00:00 2024-12-13 00:00:00 Outpatient P[facility]RO [facility]IV[facility] [id number] 87.76
--- OUTSIDE RECORDS SUMMARY | 2024-11-27 13:30 | XMS_ITS | Encounter Summary ---
Author Organization [facility] Address [address] [facility] [place] [address] Care Team Providers Care Csr Technician Name Role Phone Geovanni Rodriguez Nadja GARCIA Primary Care Provider [phone] Reason for Visit * Reason Onset Date Comments Follow-up 11/25/2024 Encounter Details Date Type Department Care Team (Late st Contact Info) Description 11/25/2024 Telephone [facility]ious Disease [address] [facility], [place] [phone] Missy Vogel PA-C [address] [place] [address] Follow-up Social History Tobacco Use Types Packs/Day Years [...] Recorded Patient Health Questionnaire-2 Score 1 11/26/2024 [facility] - Occupational Stress [...] in the past 12 m [facility], were you homeless or living in a jail (including now)? No 11/15/2024 Sex and Gender [...] No 11/15/2024 documented as of this encounter Miscellaneous Notes * Telephone Encounter - Olga Maguire, RN - 11/25/2024 3:35 PM CST Spoke with Megan with [facility] and informed her that Savanna can stop IV antibiotics at [facility] andone last set of labs will need to be drawn before line is pulled. GER HOUSE documented in this encounter Plan of Treatment Upcoming Encounters Date Type Department Care Team (Late st Contact Info) Description 12/02/2024 1:40 PM MANAGER HOUSE Office Visit [facility] - Rheumatology [address] [place] [phone] Meryl Cuenca MD [address] [place] [address] DIV [place] [phone] 12/03/2024 10:15 AM MANAGER HOUSE [facility] [address] [place] [phone] Daryn North MD [address] [place] [address] DIV OF OR[place]OPEDIC [place] [address] 12/25/2024 10:00 AM CDT Office Visit [facility] Infectious Disease [address] [place] [phone] Missy Vogel PA-C [address] [place] [id number] 01/15/2025 10:00 AM CDT Office Visit [facility] [address] [place] [phone] documented as of this encounter Goals Goal Patient Goal Type Associated Problems Recent Progress Patient-Stated? Author Mobility General On track( 025 10:37 AM MANAGER HOUSE) Ayaka Siegel RN Note: Expected end date: 10/14/21 The goal is to maintain or improve your mobility at the optimum level for you. Interventions: documented as of this encounter Visit Diagnoses Not on filedocumented in this encounter Care Teams Csr Technician Relationship Specialty Start Date End Date Geovanni Rodriguez DO [address] [place] [phone] PCP - General Internal Medicine 09/19/24 documented as of this encounter
--- OUTSIDE RECORDS SUMMARY | 2024-11-27 13:30 | XMS_ITS | Clinical Summary ---
Author Organization [facility] Address [address] [place] [address] Care Team Providers Care Manager Internet Name Role Phone Michael Geovanni Saez DO Primary Care Provider [phone] Source Comments [facility],non-owned Affiliates and Associated Physician Practices is amultiple site organization consisting of ambulatory clinics and hospital sitesin [place], [place], [place] and [place]. This disclosure is being madepursuant to the Care Everywhere program and may not contain all information available regarding this patient. Last updated 18.[facility] Allergies Active Allergy Reactions Criticality Noted Date [...] 1 (one) capsule by mouth once daily Active amLODIPine (Norvasc) 5 MG tabletIndication s:Hypertension Take 1 (one) tablet by mouth once daily Reasons: High Blood Pressure Active vitamin D3 (Cholecalciferol ) 25 MCG (1000 UNITS) tablet Take 1 (one) tablet by mouth once daily 90 tablet 4 Active Gauze Pads & Dressings ([place] [...] hours for 11 days 5 025 Active famotidine (Pepcid) 40 MG tablet Take 1 (one) tablet by mouth at bedtime for 60 days 30 tablet 1 5 025 Active ciprofloxacin (Cipro) 500 MG tabletIndication s:Surgical site infection Take 1 (one) tablet by mouth 2 times daily 60 tablet 5 Active losartan (COZAAR) 100 MG tablet Take 1 (one) tablet by mouth once daily 1 025 Discontinued(Cl inical Decision) atorvastatin (LIPITOR) 20 MG tablet Take 1 [...] 40 tablet 4 025 Discontinued(Cl inical Decision) famotidine (Pepcid) 40 MG tablet Take 1 (one) tablet by mouth at bedtime for 60 days 30 tablet 1 4 025 Discontinued(Re order) clindamycin (Cleocin) 300 MG capsule Take 1 [...] 11 days 66 g 5 025 Discontinued ciprofloxacin (Cipro) 500 MG tabletIndication s:Surgical site infection Take 1 (one) tablet by mouth 2 times daily 60 tablet 5 025 Discontinued(Re order) Active Problems Problem Noted Date Diagnosed Date Closed fracture of right tib ia and fibula, initial encounter 09/19/2024 Primary osteoarthritis of right ankle 06/13/2021 UMA positive 05/26/2021 Arthralgia of right ankle 03/15/2021 Fracture of lateral malleolu s of right fibula at syndesmosis Plantar fasciitis Encounters Date Type Department Care Team Description 11/26/2024 10:30 AM DRIED FRUIT WASHER Office Visit [facility] Orth[facility] [address] [place] [phone] Daryn North MD Surgical site infection 11/26/2024 9:24 AM DRIED FRUIT WASHER - 11/26/2024 11:59 PM DRIED FRUIT WASHER Hospital Encounter [facility] [address] [facility] [place] [phone] Daryn North MD Discharge Disposition: Home or Self Care 11/26/2024 8:00 AM DRIED FRUIT WASHER Office Visit Transitional Care at [facility] [address] [place] [phone] Nikhil Godinez III, MD Surgical site infection (Primary Dx); Elevated LFTs 11/26/2024 Orders Only [facility] [address] [place] [phone] Daryn North MD Closed fracture of lateral portion of right tibial plateau, initial encounter 11/26/2024 Travel 11/25/2024 Telephone [facility] - Infectious Disease [address] [facility], [place] [address] Missy Vogel PA-C Follow-up 11/25/2024 Telephone Transitional Care at [address] [phone] Candy Figueroa MA Reminder Call 11/21/2024 Telephone Transitional Care at [address] [phone] Nadia Love, learning and development associate 11/17/2024 7:26 AM DRIED FRUIT WASHER Anesthesia Event [facility] [address] [place] [address] Annie Carter MD Chase, Charles C, Anes Asst 11/17/2024 7:05 AM DRIED FRUIT WASHER - 11/17/2024 9:31 AM DRIED FRUIT WASHER Surgery [facility] [address] [place] [address] Daryn North MD IRRIGATION/DEBRIDEM ENT RIGHT KNEE WOUND, ANTIBIOTIC BEAD PLACEMENT, INCISIONAL PREVENA PLACEMENT, WOUND CLOSURE 11/14/2024 7:23 AM DRIED FRUIT WASHER Anesthesia Event [facility] [address] [place] [phone] Kin Aden MD Keeven, Grace C, RESPIRATORY CARE PROGRAM DIRECTOR-SUPERVISOR [employer] 11/14/2024 7:05 AM DRIED FRUIT WASHER - 11/14/2024 8:50 AM DRIED FRUIT WASHER Surgery [facility] [address] [place] [address] Daryn North MD Irrigation and debridement of right knee surgical site infection with wound vac placement 11/14/2024 5:27 AM DRIED FRUIT WASHER - 11/20/2024 6:39 PM DRIED FRUIT WASHER Hospital Encounter [facility] [address] [place] [address] Daryn North MD Surgery General Discharge Disposition: Home Health Care Sv 11/12/2024 9:17 AM DRIED FRUIT WASHER - 11/12/2024 11:59 PM DRIED FRUIT WASHER Hospital Encounter [facility] [address] [facility] [place] [address] Daryn North MD Discharge Disposition: Home or Self Care 11/12/2024 9:17 AM DRIED FRUIT WASHER - 11/12/2024 11:59 PM DRIED FRUIT WASHER Hospital Encounter [facility] [address] [place] [address] Daryn North MD Discharge Disposition: Home or Self Care 11/12/2024 9:00 AM DRIED FRUIT WASHER Office Visit [facility] [address] [place] [phone] Daryn North MD Pate, Katherine M, PA-C Closed fracture of lateral portion of right tibial plateau, initial encounter (Primary Dx); Surgical site infection; Closed nondisplaced fracture of styloid process of left radius, initial encounter 11/12/2024 Orders Only [facility] [address] [place] [phone] Daryn North MD Closed fracture of lateral portion of right tibial plateau, initial encounter ; Closed fracture of left wrist, initial encounter 11/12/2024 Travel 10/27/2024 12:30 PM DRIED FRUIT WASHER [facility] [address] [place] [phone] Adeola Mendez MD Closed fracture of lateral portion of right tibial plateau, initial encounter (Primary Dx) 10/27/2024 Travel 10/22/2024 12:30 PM DRIED FRUIT WASHER [facility] [address] [place] [phone] Daryn North MD Closed bicondylar fracture of right tibial plateau (Primary Dx) 10/22/2024 11:17 AM DRIED FRUIT WASHER - 10/22/2024 11:59 PM DRIED FRUIT WASHER Hospital Encounter [facility] [address] [place] [address] Daryn North MD Discharge Disposition: Home or Self Care 10/22/2024 Travel 10/22/2024 Orders Only [facility] [address] [place] [phone] Daryn oNrth MD Closed fracture of lateral portion of right tibial plateau, initial encounter 10/16/2024 Transitional Care [facility] - Care Coordination [address] [place] [phone] Liza Steinberg, learning and development associate 10/14/2024 Transitional Care [facility] - Care Coordination [address] [place] [phone] Liza Steinberg, learning and development associate 10/10/2024 7:27 AM DRIED FRUIT WASHER Anesthesia Event [facility] [address] [place] [address] Joey Oneal MD Osterloh, Joan Frances, RESPIRATORY CARE PROGRAM DIRECTOR-[facility] 10/10/2024 7:15 AM DRIED FRUIT WASHER - 10/10/2024 10:45 AM DRIED FRUIT WASHER Surgery [facility] [address] [place] [address] Daryn North MD Open reduction internal fixation of right bicondylar tibial plateau fracture, repair of lateral meniscus right, removal of external fixator right 10/10/2024 5:43 AM DRIED FRUIT WASHER - 10/13/2024 3:43 PM DRIED FRUIT WASHER Hospital Encounter [facility] [address] [place] [address] Daryn North MD Surgery General Discharge Disposition: Home Health Care [facility] [place] [facility] 10/06/2024 Telephone [facility] [address] [place] [phone] Adeola Mendez MD Pre-op Clearance 10/02/2024 Travel 09/29/2024 9:15 AM DRIED FRUIT WASHER Office Visit [facility] [address] [place] [phone] Adeola Mendez MD Adams, Karra N, RESPIRATORY CARE PROGRAM DIRECTOR-SUPERVISOR [employer] Closed fracture of lateral portion of right tibial plateau, initial encounter (Primary Dx) 09/29/2024 Travel 09/25/2024 Transitional Care [facility] - Care Coordination [address] [place] [address] Fiordaliza Neville, learning and development associate 09/24/2024 Transitional Care [facility] - Care Coordination [address] [place] [address] Fiordaliza Neville, learning and development associate 09/24/2024 Transitional Care [facility] - Care Coordination [address] [place] [phone] Haydee Curtis, learning and development associate 09/19/2024 4:12 PM DRIED FRUIT WASHER Anesthesia Event [facility] [address] [place] [phone] Dorinda Stevens MD McDowell, Jacob A, Anes Asst 09/19/2024 3:50 PM DRIED FRUIT WASHER - 09/19/2024 4:50 PM DRIED FRUIT WASHER Surgery [facility] [address] [place] [phone] Marifer Saeed MD RIGHT TIBIA CLOSED REDUCTION EXTERNAL FIXATION 09/18/2024 10:44 PM DRIED FRUIT WASHER - 09/23/2024 9:47 PM DRIED FRUIT WASHER Hospital Encounter [facility] [address] [place] [phone] Adeola Carreon MD Swan, Erin R, MD Orthopedics Discharge Disposition: Home Health Care [facility] 09/18/2024 Travel from Last 3 Months Immunizations [...] Recorded Patient Health Questionnaire-2 Score 1 11/26/2024 [facility] - [...] any time in the past 12 m [facility], were you homeless or living in a skilled nursing (including now)? No 11/15/2024 Sex and Gender Information Value Date Recorded Sex Assigned at Female 06/03/2023 3:57 PM CDT Gender Identity Female 06/03/2023 3:57 PM CDT Sexual Orientation Not on file Last Filed Vital Signs Vital Sign Reading Time Taken Comments Blood Pressure 138/73 11/26/2024 7:43 AM DRIED FRUIT WASHER Pulse 70 11/26/2024 7:43 AM DRIED FRUIT WASHER Temperature 36.7 C (98 F) 11/26/2024 7:43 AM DRIED FRUIT WASHER Respiratory Rate 18 11/26/2024 7:43 AM DRIED FRUIT WASHER Oxygen Saturation 97% 11/26/2024 7:43 AM DRIED FRUIT WASHER Inhaled Oxygen Concentration 40% 10/10/2024 1 2:23 PM DRIED FRUIT WASHER Weight 89.4 kg (197 lb) 11/26/2024 9:39 AM DRIED FRUIT WASHER Height 167.6 cm (5' 6 ) 11/26/2024 9:39 AM DRIED FRUIT WASHER Body Mass Index 31.8 11/26/2024 9:39 AM DRIED FRUIT WASHER Plan of Treatment Upcoming Encounters Date Type Department Care Team (Late st Contact Info) Description 12/02/2024 1:40 PM DRIED FRUIT WASHER Office Visit [facility] Rhe[facility] [address] [place] [phone] Meryl Cuenca MD [address] [place] [address] [place] [address] 12/03/2024 10:15 AM DRIED FRUIT WASHER Office Visit [facility] [address] [place] [address] [place] [address] Daryn North MD [address] [place] [address] DIV OF ORTHOPEDIC [place] [address] 12/25/2024 10:00 AM CDT Office Visit [facility] Infectious Disease [address] [place] [phone] Missy Vogel PA-C [address] [place] [phone] 01/15/2025 10:00 AM CDT Office Visit [facility] [address] [place] [phone] Health Maintenance Due Date Last Done Comments BONE DENSITY TESTING 1958 COLOGUARD (AGES 45-75) - COLON CA SCREENING 1958 CT COLONOGRAPHY - COLON CA SCREENING 1958 FIT - COLON CA SCREENING 1958 FLEX SIG - COLON CA SCREENING 1958 LIPID TESTING 1958 MAMMOGRAM 1958 MEDICARE AWV 12 MONTHS 1958 Opioid Medication Agreement - Annual 1958 Opioid Medication Urine Drug Screening 1958 DTAP/TDAP/TD VACCINES (1 - Tdap) 1977 PNEUMOCOCCAL VACCINE 50+ (1 of 1 - PCV) 01/25/2008 ZOSTER VACCINE (1 of 2) 01/25/2008 06/27/2023 Respiratory Syncytial Virus (RSV) Vaccine Pt: or over 60 yrs (1 - Risk 60-74 years 1-dose series) 2018 SCREENING FOR DIABETES 11/26/2027 , 11/20/2024, 11/20/2024, Additional history exists COLON [...] Mobility General On track( 025 10:37 AM DRIED FRUIT WASHER) Ayaka Siegel, RN Note: Expected end date: 10/14/21 The goal is to maintain or improve your mobility at the optimum level for you. Interventions: Medical Devices Implanted Type Area Operations Intelligence Device Identifier Shelf Expiration Date Model / Serial / Lot Screw 3.5mm 50mm 2.5mm Slf-Tap Sm Hex Implanted:Qty : 1 on 03/15/2021 by Sukumar Magaña DO at [facility] Right: Tibia [employer] [id number] / / Screw 3.5mm 55mm 2.5mm Slf-Tap Sm Hex Implanted:Qty : 1 on 03/15/2021 by Sukumar Magaña DO at [facility] Right: [employer]ia [employer] [id number] / / Plate 2 Hl 2 Comp Colr 25mm /3 Tblr Implanted:Qty : 1 on 03/15/2021 by Sukumar Magaña DO at [facility] Right: Tibia [employer] [id number] / / Sub Bngf 4.8mm Ostst Ca Slf Pelt Implanted:Qty : 1 on 03/15/2021 by Sukumar Magaña DO at [facility] [place]low [id number] / / [id number] Screw 4.7mm 5.6mm 36mm 2.5mm Ft Va Lopro Implanted:Qty : 2 on 10/10/2024 by Daryn North MD at [facility] Right: Tibia [employer] 11/26/2033 [id number] / / [id number] Screw 4.7mm 5.6mm 28mm 2.5mm Ft Va Lopro Implanted:Qty : 1 on 10/10/2024 by Daryn North MD at [facility] Right: [employer] 03/12/2032 [id number] / / [id number] Screw 4.7mm 5.6mm 32mm 2.5mm Ft Va Lopro Implanted:Qty : 1 on 10/10/2024 by Daryn North MD at [facility] Right: Tibia [employer] [id number] 10/19/2030 [id number] / / [id number] Agent Hmst Thrmb Kt Surgiflo 2ml Implanted:Qty : 2 on 10/10/2024 by Daryn North MD at [facility] Right: Tibia [employer] [id number] / / Screw 3.5mm 26mm Slf-Tap Cortx Evos Strl Implanted:Qty : 1 on 10/10/2024 by Daryn North MD at [facility] Right: [employer] [id number] / / Screw 3.5mm 32mm Slf-Tap Cortx Evos Strl Implanted:Qty : 1 on 10/10/2024 by Daryn North MD at [facility] Right: [employer] [id number] / / Screw 3.5mm 34mm Slf-Tap Cortx Evos Strl Implanted:Qty : 1 on 10/10/2024 by Daryn North MD at [facility] Right: [employer] [id number] / / Screw 3.5mm 15mm Slf-Tap Lck Evos Strl Implanted:Qty : 1 on 10/10/2024 by Daryn North MD at [facility] Right: [employer] [id number] / / Plate 9 Hl Va Lck Fib Lt Dist 125mm Implanted:Qty : 1 on 10/10/2024 by Daryn North MD at [facility] Right: [employer] [id number] / / Screw 3.5mm 32mm Ft Slf-Tap Hex Lopro Implanted:Qty : 1 on 10/10/2024 by Daryn North MD at [facility] Right: [employer] [id number] / / Screw 3.5mm 60mm T15 Lck Slf-Tap Tip Tpr Implanted:Qty : 1 on 10/10/2024 by Daryn North MD at [facility] Right: [employer] [id number] / / Screw 3.5mm 65mm T15 Lck Slf-Tap Tip Tpr Implanted:Qty : 3 on 10/10/2024 by Daryn North MD at [facility] Right: [employer] [id number] / / Screw 3.5mm 70mm T15 Lck Slf-Tap Tip Tpr Implanted:Qty : 1 on 10/10/2024 by Daryn North MD at [facility] Right: [employer] [id number] / / Plate 9 Hl Lck Lopro Dist Blt Tip Tib Rt Implanted:Qty : 1 on 10/10/2024 by Daryn North MD at [facility] Right: [employer] [id number] / / Screw 3.5mm 75mm T15 Lck Slf-Tap Tip Tpr Implanted:Qty : 2 on 10/10/2024 by Daryn North MD at [facility] Right: [employer] [id number] / / Screw 3.5mm 40mm Ft Slf-Tap Hex Lopro Implanted:Qty : 1 on 10/10/2024 by Daryn North MD at [facility] Right: [employer] [id number] / / Screw 3.5mm 20mm T15 Slf-Tap Lck Tpr Implanted:Qty : 1 on 10/10/2024 by Daryn North MD at [facility] Right: [employer] [id number] / / Cmnt Bone Smpx Ptbr Fd Radopq Prebl Implanted:Qty : 1 on 11/17/2024 by Daryn North MD at [facility] Right: Knee [employer] 01/12/2026 [id number] / / [id number] Lorenzo Bone Void 10cc 20cc Ca Slf Stimulan Implanted:Qty : 1 on 11/17/2024 by Daryn North MD at [facility] Right: Knee [employer] 07/14/2027 [id number] / / [id number] Explanted Type Area Operations Intelligence Device Identifier Shelf Expiration Date Model / Serial / Lot Wire K 2mm 150mm 1 End Troc Pnt Ss Sm Explanted:Qty: 1 on 03/15/2021 by Sukumar Magaña DO at [facility] Right: [employer] [id number] / / Screw 3.5mm 60mm 2.5mm Slf-Tap Sm Hex Explanted:Qty: 1 on 03/15/2021 by Sukumar Magaña DO at [facility] Right: [employer]ia [employer] [id number] / / Cplng Extfix Hfmn 3 Nikhil To Nikhil Salomón Explanted:Qty: 4 on 09/19/2024 by Marifer Saeed MD at [facility] Right: Tibia [employer] 4922-1-010 / / Screw 3.5mm 38mm Slf-Tap Cortx Evos Strl Explanted:Qty: 1 on 10/10/2024 by Daryn North MD at [facility] Right: Tibia [employer] [id number] / / Screw 3.5mm 42mm Slf-Tap Cortx Evos Strl Explanted:Qty: 1 on 10/10/2024 by Daryn North MD at [facility] Right: Tibia [employer] [id number] / / Wire K 1.6mm 150mm Troc Pnt Ss Fx Strl Explanted:Qty: 1 on 10/10/2024 by Daryn North MD at [facility] Right: Tib[employer] [id number] / / Plate 11 Hl Va Lck Lopro Fib Lt Dist Lat Explanted:Qty: 1 on 10/10/2024 by Daryn North MD at [facility] Right: Tibia [employer] [id number] / / Wire K 1.6mm 6in Hlf Bynt Pnt Ss Fx Explanted:Qty: 3 on 10/10/2024 by Daryn North MD at [facility] Right: [employer] [id number] / / Pin Hlf 180mm 5mm Apx Hfmn2 Canc Ss Implanted:Qty: 2 on 09/19/2024 by Marifer Saeed MD at [facility] Explanted:Qty: 2 on 10/10/2024 by Daryn North MD at [facility] Right: [employer] [id number] / / Pin Hlf 200mm 5mm Apx Hfmn2 Orth Ss Thrd Implanted:Qty: 2 on 09/19/2024 by Marifer Saeed MD at [facility] Explanted:Qty: 2 on 10/10/2024 by Daryn North MD at [facility] Right: Tibia [employer] [id number] / / Procedures Procedure Name Priority Date/Time Associated Diagnosis Comments XR TIBIA FIBULA RIGHT 2VW Routine 11/26/2024 9:34 AM DRIED FRUIT WASHER Closed fracture of lateral portion of right tibial plateau, initial encounter COMPREHENSIVE METABOLIC PANEL Routine 11/26/2024 8:49 AM DRIED FRUIT WASHER Elevated LFTs GLUCOSE - POINT OF CARE Routine 11/20/2024 1:30 PM DRIED FRUIT WASHER GLUCOSE - POINT OF CARE Routine 11/20/2024 8:10 AM DRIED FRUIT WASHER BASIC METABOLIC PANEL (CALCIUM TOTAL) AM Draw 11/20/2024 12:49 AM DRIED FRUIT WASHER HEPATITIS C AB SCREEN RFLX NAAT QUANT Routine 11/20/2024 12:48 AM DRIED FRUIT WASHER HIV-1 HIV-2 ANTIBODY + HIV P24 AG PANEL Routine 11/20/2024 12:48 AM DRIED FRUIT WASHER HEPATITIS SCREEN ACUTE AM Draw 11/20/2024 12:48 AM DRIED FRUIT WASHER CBC W/O DIFFERENTIAL AM Draw 11/20/2024 12:48 AM DRIED FRUIT WASHER GLUCOSE - POINT OF CARE Routine 11/19/2024 9:06 PM DRIED FRUIT WASHER GLUCOSE - POINT OF CARE Routine 11/19/2024 5:26 PM DRIED FRUIT WASHER HEMOGLOBIN Timed 11/19/2024 3:37 PM DRIED FRUIT WASHER GLUCOSE - POINT OF CARE Routine 11/19/2024 1:18 PM DRIED FRUIT WASHER TRANSFUSE RED BLOOD CELL LEUKOREDUCED UNIT(S) Routine 11/19/2024 9:30 AM DRIED FRUIT WASHER PREPARE RBC LEUKOREDUCED UNIT Routine 11/19/2024 9:14 AM DRIED FRUIT WASHER GLUCOSE - POINT OF CARE Routine 11/19/2024 8:22 AM DRIED FRUIT WASHER TYPE + SCREEN PANEL STAT 11/19/2024 6 :24 AM DRIED FRUIT WASHER HEPATIC FUNCTION PANEL AM Draw 11/19/2024 12:15 AM DRIED FRUIT WASHER CBC W/O DIFFERENTIAL AM Draw 11/19/2024 12:15 AM DRIED FRUIT WASHER BASIC METABOLIC PANEL (CALCIUM TOTAL) AM Draw 11/19/2024 12:15 AM DRIED FRUIT WASHER GLUCOSE - POINT OF CARE Routine 11/18/2024 7:54 PM DRIED FRUIT WASHER GLUCOSE - POINT OF CARE Routine 11/18/2024 5:44 PM DRIED FRUIT WASHER GLUCOSE - POINT OF CARE Routine 11/18/2024 12:35 PM DRIED FRUIT WASHER EKG 12-LEAD Routine 11/18/2024 11:30 AM DRIED FRUIT WASHER Closed fracture of right tibia and fibula, initial encounter GLUCOSE - POINT OF CARE Routine 11/18/2024 8:30 AM DRIED FRUIT WASHER CBC W/O DIFFERENTIAL AM Draw 11/18/2024 12:20 AM DRIED FRUIT WASHER BASIC METABOLIC PANEL (CALCIUM TOTAL) AM Draw 11/18/2024 12:20 AM DRIED FRUIT WASHER GLUCOSE - POINT OF CARE Routine 11/17/2024 9:12 PM DRIED FRUIT WASHER GLUCOSE - POINT OF CARE Routine 11/17/2024 5:19 PM DRIED FRUIT WASHER VAS BILATERAL VENOUS DUPLEX LE Routine 11/17/2024 12:30 PM DRIED FRUIT WASHER Closed fracture of right tibia and fibula, initial encounter GLUCOSE - POINT OF CARE Routine 11/17/2024 11:45 AM DRIED FRUIT WASHER CULTURE ANAEROBE STAT 11/17/2024 8:38 AM DRIED FRUIT WASHER CULTURE WOUND+GRAM STAIN STAT 11/17/2024 8:38 AM DRIED FRUIT WASHER CULTURE ANAEROBE STAT 11/17/2024 8:36 AM DRIED FRUIT WASHER CULTURE WOUND+GRAM STAIN STAT 11/17/2024 8:36 AM DRIED FRUIT WASHER ENDOTRACHEAL TUBE NOTE Routine 11/17/2024 7:55 AM DRIED FRUIT WASHER NE EXPLORE WOUND,EXTREMITY 11/17/2024 7:07 AM DRIED FRUIT WASHER Injury of right knee, initial encounter CBC W/O DIFFERENTIAL AM Draw 11/17/2024 12:44 AM DRIED FRUIT WASHER BASIC METABOLIC PANEL (CALCIUM TOTAL) AM Draw 11/17/2024 12:44 AM DRIED FRUIT WASHER GLUCOSE - POINT OF CARE Routine 11/16/2024 7:59 PM DRIED FRUIT WASHER GLUCOSE - POINT OF CARE Routine 11/16/2024 6:01 PM DRIED FRUIT WASHER URINALYSIS REFLEX TO MICROSCOPIC NO CULTURE Routine 11/16/2024 1:08 PM DRIED FRUIT WASHER PROTEIN URINE RANDOM QUANTITATIVE Routine 11/16/2024 1:08 PM DRIED FRUIT WASHER UREA NITROGEN URINE RANDOM Routine 11/16/2024 1:08 PM DRIED FRUIT WASHER CREATININE URINE RANDOM Routine 11/16/2024 1:08 PM DRIED FRUIT WASHER SODIUM URINE RANDOM Routine 11/16/2024 1 :08 PM DRIED FRUIT WASHER GLUCOSE - POINT OF CARE Routine 11/16/2024 11:33 AM DRIED FRUIT WASHER GLUCOSE - POINT OF CARE Routine 11/16/2024 8:17 AM DRIED FRUIT WASHER CBC W/O DIFFERENTIAL AM Draw 11/16/2024 12:21 AM DRIED FRUIT WASHER BASIC METABOLIC PANEL (CALCIUM TOTAL) AM Draw 11/16/2024 12:21 AM DRIED FRUIT WASHER GLUCOSE - POINT OF CARE Routine 11/15/2024 8:18 PM DRIED FRUIT WASHER GLUCOSE - POINT OF CARE Routine 11/15/2024 6:00 PM DRIED FRUIT WASHER GLUCOSE - POINT OF CARE Routine 11/15/2024 1:13 PM DRIED FRUIT WASHER GLUCOSE - POINT OF CARE Routine 11/15/2024 9:10 AM DRIED FRUIT WASHER VITAMIN D 25-HYDROXY AM Draw 11/15/2024 12:56 AM DRIED FRUIT WASHER FERRITIN Routine 11/15/2024 12:56 AM DRIED FRUIT WASHER IRON + TRANSFERRIN PANEL Routine 11/15/2024 12:56 AM DRIED FRUIT WASHER VITAMIN B12 AM Draw 11/15/2024 12:56 AM DRIED FRUIT WASHER FOLATE Routine 11/15/2024 12:56 AM DRIED FRUIT WASHER CBC W/O DIFFERENTIAL AM Draw 11/15/2024 12:56 AM DRIED FRUIT WASHER BASIC METABOLIC PANEL (CALCIUM TOTAL) AM Draw 11/15/2024 12:56 AM DRIED FRUIT WASHER GLUCOSE - POINT OF CARE Routine 11/14/2024 10:25 PM DRIED FRUIT WASHER GLUCOSE - POINT OF CARE Routine 11/14/2024 5:53 PM DRIED FRUIT WASHER COMPREHENSIVE METABOLIC PANEL Routine 11/14/2024 4:18 PM DRIED FRUIT WASHER HEMOGLOBIN A1C Routine 11/14/2024 4:18 PM [employer] [facility] PT EVAL AND TREAT ORTHO/TRAUMA Routine 11/14/2024 9:08 AM [employer] OT EVAL AND TREAT ORTHO/TRAUMA Routine 11/14/2024 9:08 AM [employer] CULTURE ANAEROBE STAT 11/14/2024 8:21 AM [employer] CULTURE WOUND+GRAM STAIN STAT 11/14/2024 8:21 AM [employer] CULTURE ANAEROBE STAT 11/14/2024 8:10 AM [employer] CULTURE WOUND+GRAM STAIN STAT 11/14/2024 8:10 AM [employer] CULTURE ANAEROBE STAT 11/14/2024 8:10 AM [employer] CULTURE WOUND+GRAM STAIN STAT 11/14/2024 8:10 AM [employer] ENDOTRACHEAL TUBE NOTE Routine 11/14/2024 7:57 AM [employer] NE RENE SUBQ TISSUE 20 SQ CM/< 11/14/2024 6:58 AM [employer] Surgical site infection Special Needs Supine C-ARM CBC W AUTO DIFFERENTIAL STAT 11/14/2024 6:47 AM [employer] Arthralgia of right ankle TYPE + SCREEN PANEL Routine 11/14/2024 6 :17 AM [employer] XR WRIST LEFT 3VW OR MORE Routine 11/12/2024 9:24 AM [employer] Closed fracture of left wrist, initial encounter XR TIBIA FIBULA RIGHT 2VW Routine 11/12/2024 9:22 AM [employer] Closed fracture of lateral portion of right tibial plateau, initial encounter XR TIBIA FIBULA RIGHT 2VW Routine 10/22/2024 11:26 AM [employer] Closed fracture of lateral portion of right tibial plateau, initial encounter CBC W/O DIFFERENTIAL AM Draw 10/13/2024 1:55 AM [employer] Closed fracture of right tibia and fibula, initial encounter BASIC METABOLIC PANEL (CALCIUM TOTAL) AM Draw 10/13/2024 1:55 AM [employer] Closed fracture of right tibia and fibula, initial encounter CBC W/O DIFFERENTIAL AM Draw 10/12/2024 1:03 PM [employer] Closed fracture of right tibia and fibula, initial encounter BASIC METABOLIC PANEL (CALCIUM TOTAL) AM Draw 10/12/2024 4:18 AM [employer] Closed fracture of right tibia and fibula, initial encounter CBC W/O DIFFERENTIAL AM Draw 10/11/2024 2:13 AM [employer] Closed fracture of right tibia and fibula, initial encounter BASIC METABOLIC PANEL (CALCIUM TOTAL) AM Draw 10/11/2024 2:13 AM [employer] Closed fracture of right tibia and fibula, initial encounter XR TIBIA FIBULA RIGHT 2VW STAT 10/10/2024 1:17 PM [employer] Closed fracture of right tibia and fibula, initial encounter [place] [facility] STAT 10/10/2024 11:01 AM [employer] Closed fracture of right tibia and fibula, initial encounter PERIPHERAL IV NOTE Routine 10/10/2024 8: 22 AM [employer] ENDOTRACHEAL TUBE NOTE Routine 10/10/2024 8:22 AM [employer] NE OPEN RX BILAT TIB PLAT FX 10/10/2024 7:15 AM [employer] Closed fracture of lateral portion of right tibial plateau, initial encounter Special Needs Supine C-Arm TYPE + SCREEN PANEL Routine 10/10/2024 6 :24 AM [employer] CBC W/O DIFFERENTIAL AM Draw 09/23/2024 6:31 AM [employer] Closed fracture of right tibia and fibula, initial encounter BASIC METABOLIC PANEL (CALCIUM TOTAL) AM Draw 09/23/2024 6:31 AM [employer] Closed fracture of right tibia and fibula, initial encounter CBC W/O DIFFERENTIAL AM Draw 09/22/2024 7:15 AM [employer] Closed fracture of right tibia and fibula, initial encounter BASIC METABOLIC PANEL (CALCIUM TOTAL) AM Draw 09/22/2024 7:15 AM [employer] Closed fracture of right tibia and fibula, initial encounter XR KNEE RIGHT 2VW OR LESS Routine 09/21/2024 11:00 AM [employer] Closed fracture of right tibia and fibula, initial encounter CBC W/O DIFFERENTIAL AM Draw 09/21/2024 5:54 AM [employer] Closed fracture of right tibia and fibula, initial encounter BASIC METABOLIC PANEL (CALCIUM TOTAL) AM Draw 09/21/2024 5:54 AM [employer] Closed fracture of right tibia and fibula, initial encounter CBC W/O DIFFERENTIAL AM Draw 09/20/2024 3:42 AM [employer] Closed fracture of right tibia and fibula, initial encounter BASIC METABOLIC PANEL (CALCIUM TOTAL) AM Draw 09/20/2024 3:42 AM [employer] Closed fracture of right tibia and fibula, initial encounter [place] [facility] STAT 09/19/2024 5:18 PM [employer] Closed fracture of right tibia and fibula, initial encounter PERIPHERAL IV NOTE Routine 09/19/2024 4: 47 PM [employer] ENDOTRACHEAL TUBE NOTE Routine 09/19/2024 4:46 PM [employer] NE CLOSED RX TIBIA SHAFT FX 09/19/2024 4:16 PM [employer] Closed fracture of right tibial plateau, initial encounter VITAMIN D 25-HYDROXY Routine 09/19/2024 3:12 AM [employer] Closed fracture of right tibia and fibula, initial encounter Disorder of bone CBC W/O DIFFERENTIAL STAT 09/19/2024 3:12 AM [employer] Closed fracture of right tibia and fibula, initial encounter COMPREHENSIVE METABOLIC PANEL STAT 09/19/2024 3:12 AM [employer] PT EVAL AND TREAT ORTHO/TRAUMA Routine 09/19/2024 1:52 AM [employer] OT EVAL AND TREAT ORTHO/TRAUMA Routine 09/19/2024 1:[address] TIBIA FIBULA RIGHT WO CONT STAT 09/19/2024 1:14 AM [employer] Right leg pain CT KNEE RIGHT WO CONTRAST STAT 09/19/2024 1:14 AM [employer] Right leg pain XR FOOT RIGHT 3VW OR MORE STAT 09/19/2024 12:45 AM [employer] Right leg pain TYPE + SCREEN PANEL STAT 09/18/2024 1 1:24 PM [employer] CBC W AUTO DIFFERENTIAL STAT 09/18/2024 11:24 PM [employer] XR KNEE RIGHT 2VW OR LESS STAT 09/18/2024 11:08 PM [employer] Right leg pain XR TIBIA FIBULA RIGHT 2VW STAT 09/18/2024 11:08 PM [employer] Right leg pain ENDOSCOPY, COLON, SCREENING Routine 05/30/2024 9:42 AM CDT from Last 3 Months or Most Recently Relevant to Health Maintenance Results * XR Tibia Fibula Right 2Vw (11/26/2024 9:34 AM [employer]) Only the most recent of5 resultswithin the time period is included. Anatomical Region Laterality Modality Lower Extremity Computed Radiogr aphy 11/26/2024 10:0 0 AM [employer] Impressions 11/26/2024 10:29 AM [employer] IMPRESSION: Redemonstration of a proximal tibial fracture fixation and distal tibiofibular syndesmotic fixation, unchanged in alignment. Interval appearance of multiple radiopaque findings within the lateral aspect of the distal thigh and medial aspect of the proximal leg soft tissue, likely antibiotic beads. Report dictated by Luciano Woods MD, (Bottom Cager). I, Yefri Groves MD have personally reviewed and interpreted this examination/study. > Interpreting Provider: Yefri Groves MD on 11/26/2024 10:29 AM Narrative 11/26/2024 10:29 AM [employer] PROCEDURE: XR TIBIA FIBULA RIGHT 2VW, DATE/TIME OF EXAM: 11/26/2024 9:34 AM, LOCATION [facility] INDICATION: S82.121A: Closed fracture of lateral [...] 2VW, DATE/TIME OF EXAM: 59:34 AM, LOCATION [facility] INDICATION: S82.121A: Closed fracture of lateral [...] beads. Report dictated by Luciano Woods MD, (Bottom Cager). I, Yefri Groves MD have personally reviewed and interpreted this examination/study. > Interpreting Provider: Yefri Groves MD on 11/26/2024 10:29 AM Daryn North MD DIAGNOSTIC IMAGING O RDERABLES * (ABNORMAL) COMPREHENSIVE METABOLIC PANEL (11/26/2024 8:49 AM [facility]) Only the most recent of3 resultswithin the time period is included. BUN 23 7 - 26 mg/dL 11/26/2024 12:07 PM [facility] Creatinine 0.88 0.56 - 0.96 mg/dL 11/26/2024 12:07 PM [facility] Sodium 143 136 - 145 mmol/L 11/26/2024 12:07 PM [facility] Potassium 3.9 3.5 - 4.5 mmol/L 11/26/2024 12:07 PM [facility] Chloride 115(H) 98 - 107 mmol/L 11/26/2024 12:07 PM [facility] CO2 18(L) 22 - 29 mmol/L 11/26/2024 12:07 PM [facility] Glucose 83 70 - 99 mg/dL 11/26/2024 12:07 PM [facility] Calcium 9.1 8.4 - 10.2 mg/dL 11/26/2024 12:07 PM [facility] Protein Total 6.6 6.0 - 8.3 g/dL 11/26/2024 12:07 PM [facility] Albumin 2.9(L) 3.4 - 5.0 g/dL 11/26/2024 12:07 PM [facility] Bilirubin Total 0.3 0.2 - 1.2 mg/dL 11/26/2024 12:07 PM [facility] Alkaline Phosphatase 200(H) 40 - 150 U/L 11/26/2024 12:07 PM [facility] ALT 25 5 - 55 U/L 11/26/2024 12:07 PM [facility] AST 21 5 - 34 U/L 11/26/2024 12:07 PM [facility] Anion Gap 10 6 - 16 11/26/2024 12:07 PM [facility] BUN/Creatinine Ratio 26(H) 7 - 23 11/26/2024 12:07 PM [facility] Osmolality Calculated 299(H) 275 - 295 mOsm/kg 11/26/2024 12:07 PM [facility] Albumin/Globulin Ratio 0.8(L) 1.1 - 2.3 11/26/2024 12:07 PM [facility] eGFR by CKD-EPI 72(L) >=90 mL/min/1.7 3 m2 11/26/2024 12:07 PM [facility] Blood BLOOD SPECIMEN / Unknown Lab Venipuncture / Unknown 11/26/2024 8:49 AM [employer] [facility] 11/26/2024 11:42 AM [employer] Nikhil Godinez III, MD LAB - CHEMISTRY O RDERABLES Performing Organization Address City/[facility]/ZIP Co de Phone Number [address] [address], [place] [phone] * GLUCOSE - POINT OF CARE (11/20/2024 1:30 PM [employer]) Only the most recent of23 resultswithin the time period is included. [facility] Glucose WB/POC 95 70 - 99 mg/dL 11/20/2024 4:55 PM [facility] Specimen Type Cap Fingerstick 2024 4:55 PM [facility] Blood BLOOD SPECIMEN / Unknown 11/20/2024 1:30 PM [employer] 11/20/2024 4:55 PM [employer] Daryn North MD LAB - POINT OF CARE ORDERABLES Performing Organization Address [facility]/ZIP Co de Phone Number [address] [address], [place] [phone] * (ABNORMAL) BASIC METABOLIC PANEL (CALCIUM TOTAL) (11/20/2024 12:49 AM [employer]) Only the most recent of13 resultswithin the time period is included. [facility] BUN 26 7 - 26 mg/dL 11/20/2024 1:59 AM [facility] Creatinine 0.98(H) 0.56 - 0.96 mg/dL 11/20/2024 1:59 AM [facility] Sodium 143 136 - 145 mmol/L 11/20/2024 1:59 AM [facility] Potassium 3.8 3.5 - 4.5 mmol/L 11/20/2024 1:59 AM [facility] Chloride 113(H) 98 - 107 mmol/L 11/20/2024 1:59 AM [facility] CO2 22 22 - 29 mmol/L 11/20/2024 1:59 AM [facility] Glucose 95 70 - 99 mg/dL 11/20/2024 1:59 AM [facility] Calcium 8.9 8.4 - 10.2 mg/dL 11/20/2024 1:59 AM [facility] Anion Gap 8 6 - 16 11/20/2024 1:59 AM [facility] BUN/Creatinine Ratio 27(H) 7 - 23 11/20/2024 1:59 AM [facility] Osmolality Calculated 301(H) 275 - 295 mOsm/kg 11/20/2024 1:59 AM [facility] eGFR by CKD-EPI 64(L) >=90 mL/min/1.7 3 m2 11/20/2024 1:59 AM [facility] Blood BLOOD SPECIMEN / Unknown Lab Venipuncture / Unknown 11/20/2024 12:49 AM [facility] 11/20/2024 1:28 AM [facility] Daryn North MD LAB - CHEMISTRY ORDE [facility] Organization Address City/State/ZIP Co de Phone Number [facility] [address] [place] [address], [facility] [phone] * HEPATITIS C AB SCREEN RFLX NAAT QUANT (11/20/2024 12:48 AM [facility]) Hepatitis C Antibody Non-react juju Non-reac tive 11/20/2024 2:21 AM [facility] Comment: Hepatitis C Antibody screen indicates no [...] Lab Venipuncture / Unknown 11/20/2024 12:48 AM [employer] [facility] 11/20/2024 1:18 AM [employer] Cathie Reyes MD LAB - CHEMISTRY KONG JENSEN Performing Organization Address City/[facility]/ZIP Co de Phone Number [address] [address], [facility] [phone] * HIV-1 HIV-2 ANTIBODY + HIV P24 AG PANEL (11/20/2024 12:48 AM [employer]) [facility] HIV Antigen/Antibod y 1 & 2 Non-reacti ve Non-react juju 11/20/2024 2:21 AM [employer] [facility] Comment:No Laboratory eviden ce of HIV infection. Blood BLOOD SPECIMEN / Unknown Lab Venipuncture / Unknown 11/20/2024 12:48 AM [employer] 11/20/2024 1:18 AM [employer] Cathie Reyes MD LAB - CHEMISTRY KONG JENSEN Performing Organization Address [facility] Co de Phone Number [address] [address], [facility] [phone] * (ABNORMAL) CBC W/O DIFFERENTIAL (11/20/2024 12:48 AM [employer]) Only the most recent of14 resultswithin the time period is included. [facility] WBC 7.7 4.0 - 10.7 x10E9/L 11/20/2024 1:35 AM [facility] RBC Count 2.88(L) 3.90 - 5.20 x10E12/L 11/20/2024 1:35 AM [facility] Hemoglobin 8.0(L) 11.9 - 15.8 g/dL 11/20/2024 1:35 AM [facility] Hematocrit 24.5(L) 34.8 - 46.1 % 11/20/2024 1:35 AM [facility] MCV 85.1 80.0 - 98.0 fL 11/20/2024 1:35 AM [facility] MCH 27.8 26.7 - 33.6 pg 11/20/2024 1:35 AM [facility] MCHC 32.7 31.7 - 36.3 g/dL 11/20/2024 1:35 AM [facility] RDW-CV 15.9(H) 11.3 - 14.8 % 11/20/2024 1:35 AM [facility] Platelet Count 269 150 - 420 x10E9/L 11/20/2024 1:35 AM [facility] MPV 11.4 7.8 - 11.4 fL 11/20/2024 1:35 AM [facility] NRBC 0.3(H) <=0.0 /100 WBC 11/20/2024 1:35 AM [facility] Blood BLOOD SPECIMEN / Unknown Lab Venipuncture / Unknown 11/20/2024 12:48 AM [employer] [facility] [facility] 11/20/2024 1:18 AM [facility] Daryn North MD LAB - HEMATOLOGY ORD ERABLES [facility] [address] [place] [phone] [phone] * HEPATITIS SCREEN ACUTE (11/20/2024 12:48 AM [employer] [facility]) Hepatitis A Virus Antibody IgM Non-react juju Non-reac tive 11/20/2024 2:21 AM [facility] Hepatitis B Virus Surface Antigen Non-react juju Non-reac tive 11/20/2024 2:21 AM [facility] Hepatitis B Core Virus Antibody IgM Non-react juju Non-reac tive 11/20/2024 2:21 AM [facility] Hepatitis C Antibody Non-react juju Non-reac tive 11/20/2024 2:21 AM [facility] Comment:Hepatitis C Antibody screen indicates no serologic evidence of past or current infection with Hepatitis C Virus. Patients with unexplained liver disease who are immunocompromised or suspected of having acute Hepatitis C infection may benefit from Nucleic Acid Test (KATIUSKA) for Hepatitis C Viral RNA to confirm Hepatitis C status. Blood BLOOD SPECIMEN / Unknown Lab Venipuncture / Unknown 11/20/2024 12:48 AM [employer] [facility] 11/20/2024 1:18 AM [employer] Cathie Reyes MD LAB - CHEMISTRY KONG JENSEN Performing Organization Address City/[facility]/ZIP Co de Phone Number [address] [address], [facility] [phone] * (ABNORMAL) HEMOGLOBIN (11/19/2024 3:37 PM [employer]) [facility] Hemoglobin 9.3(L) 11.9 - 15.8 g/dL 11/19/2024 4:07 PM [employer] [facility] Blood BLOOD SPECIMEN / Unknown Lab Venipuncture / Unknown 11/19/2024 3:37 PM [employer] 11/19/2024 3:44 PM [employer] Missy Melgar PA-C LAB - HEMATO LOGY ORDERABLES Performing Organization Address [facility]/ZIP Co de Phone Number [address] [address], [facility] [phone] * PREPARE (CROSSMATCH) RBC UNIT(S), 1 Units (11/19/2024 9:14 AM [employer]) [facility] Unit Description AS1 LR PRBC IRR [facility] Unit ABO O [facility] Unit Rh NEG [facility] Product Number R04 [facility] Unit Donor # [id number] [facility] Unit Status transfused [facility] Product Code [id number] [facility] Blood Type Barcode 9500 [facility] Expiration Date [id number] S BLOOD BANK LAB Blood Bank BLOOD SPECIMEN / Unknown 11/19/2024 6:33 AM [employer] Daryn North MD LAB - BLOOD BANK ORD ERABLES Performing Organization Address City/[facility]/ZIP Co de Phone Number [facility] [address] [place] [address], [facility] [phone] * TYPE + SCREEN PANEL (11/19/2024 6:24 AM [employer]) Only the most recent of4 resultswithin the time period is included. [facility] Antibody Screen NEG 7:12 AM [facility] ABO Rh O POS 11/19/2024 7:12 AM [facility] Blood Bank BLOOD SPECIMEN / Unknown Venipuncture / Unknown 11/19/2024 6:24 AM [employer] 11/19/2024 6:33 AM [employer] Daryn North MD LAB - BLOOD BANK ORD ERABLES [facility] [address] [place] [address], [facility] [phone] * (ABNORMAL) HEPATIC FUNCTION PANEL (11/19/2024 12:15 AM [employer]) [facility] Protein Total 5.2(L) 6.0 - 8.3 g/dL 025 1:22 AM [facility] Albumin 2.1(L) 3.4 - 5.0 g/dL 11/19/2024 1:22 AM [facility] Bilirubin Total 0.2 0.2 - 1.2 mg/dL 02/2025 1:22 AM [facility] Bilirubin Conjugated 0.1 0.1 - 0.5 mg/dL 11/19/2024 1:22 AM [facility] Bilirubin Unconjugated 0.1 Unconjugated Bilirubin is a calculated value: Reference ranges have not been established. mg/dL 11/19/2024 1:22 AM [facility] Alkaline Phosphatase 279(H) 40 - 150 U/L 11/19/2024 1:22 AM [facility] ALT 79(H) 5 - 55 U/L 11/19/2024 1:22 AM [facility] AST 71(H) 5 - 34 U/L 11/19/2024 1:22 AM [facility] Albumin/Globulin Ratio 0.7(L) 1.1 - 2.3 11/19/2024 1:22 AM [employer] Blood BLOOD SPECIMEN / Unknown Lab Venipuncture / Unknown 11/19/2024 12:15 AM [employer] [facility] 11/19/2024 12:50 AM [employer] [facility] Daryn North MD LAB - CHEMISTRY KONG JENSEN Performing Organization Address [facility]/ZIP Co de Phone Number [facility] [address] [place] [address], [facility] [phone] * EKG 12-LEAD (11/18/2024 11:30 AM [facility] [facility]) Ventricular Rate 79 BPM [facility] MUSE Atrial Rate 79 BPM [facility] MUSE P-R Interval 150 ms [facility] QRS Duration ms 100 ms [facility] Q-T Interval ms 406 ms [facility] QTC Calculation (Bezet) 465 ms [facility] Calculated P [place] 26 degrees SL MUSE Calculated R [place] 9 degrees SL MUSE Calculated T [place] 26 degrees [facility] Interpretation EKG NORMAL SINUS RHYTHM NORMAL ECG NO PREVIOUS ECGS AVAILABLE Confirmed by FRANC RODRIGUEZ MD ([id number]) on 11/22/2024 11:50:41 PM [facility] 11/18/2024 11:3 0 AM [facility] [facility] 11/22/2024 11:50 PM [employer] [facility] [facility] Daryn North MD ECG ORDERABLES Performing Organization Address [facility] Co de Phone Number [facility] * VAS Bilateral Venous Duplex Le (11/17/2024 12:30 PM [employer]) Anatomical Region Laterality Modality Lower Extremity Ultrasound 11/17/2024 12:1 3 PM [employer] [facility] Narrative Procedure Note Segundo Clement MD - 11/17/2024 Daryn North MD VASCULAR LAB ORDERAB LES * (ABNORMAL) CULTURE WOUND+GRAM STAIN (11/17/2024 8:38 AM [employer]) Only the most recent of5 resultswithin the time period is included. Culture Light Enterobacter cloacae complex(A) JERILYN 11/19/2024 1:56 PM [employer]CRO[facility] Gram Stain Heavy Red blood cells 11/19/2024 1:56 PM [facility] Gram Stain Rare Polymorphonuclear cells 11/19/2024 1:56 PM [facility] Gram Stain No organisms seen 025 1:56 PM [facility] Microbiology [place] / Unknown Collection / Unknown 11/17/2024 8:38 AM [employer] [facility] 11/17/2024 8:46 AM [employer] Narrative [facility]CRO[facility] - 11/19/2024 1:56 PM [employer] Enterobacter cloacae, Citrobacter freundii, Klebsiella (formerly Enterobacter) [...] North MD LAB - MICROBIOLOGY O RDERABLES [facility] [address] [place] [address], [facility] [phone] * CULTURE ANAEROBE (11/17/2024 8:38 AM [employer]) Only the most recent of5 resultswithin the time period is included. Culture No anaerobic organisms isolated JERILYN 11/22/2024 1:20 PM [facility]CRO[facility] Microbiology [place] / Unknown Collection / Unknown 11/17/2024 8:38 AM [employer] [facility] 11/17/2024 8:46 AM [employer] Daryn North MD LAB - MICROBIOLOGY O RDERABLES [facility]CRO[facility] [address] [place] [address], [facility] [phone] * ETT LINE PERFORMABLE (11/17/2024 7:55 AM [employer]) Narrative Sandro Corona DO - 11/17/2024 7:55 AM [employer] Sandro Corona DO 11/17/2024 7:56 AM Endotracheal Tube Placement: Patient Location: OR. Intubation Event Date/Time: 11/17/2024 7:45 AM Procedure: intubation ([id number]) Procedure Section: Sedation: under general anesthesia. Indications [...] MD. Annie Carter MD GENERAL ANESTHESIA O R[place]UC[place] * URINALYSIS REFLEX TO MICROSCOPIC NO CULTURE (11/16/2024 1:08 PM [employer] [facility]) Color UA Straw Straw, Yellow 11/16/2024 1:29 PM [facility] Clarity UA Clear Clear 11/16/2024 1:29 PM [facility] Specific [place] UA 1.008 1.005 - 1.030 11/16/2024 1:29 PM [facility] pH UA 5.0 5.0 - 8.0 pH 11/16/2024 1:29 PM [facility] Protein UA Negative Negative 11/16/2024 1:29 PM [facility] Glucose UA Negative Negative 11/16/2024 1:29 PM [facility] Ketone UA Negative Negative 11/16/2024 1:29 PM [facility] Bilirubin UA Negative Negative 11/16/2024 1:29 PM [facility] Blood UA Negative Negative 11/16/2024 1:29 PM [facility] Nitrite UA Negative Negative 11/16/2024 1:29 PM [facility] Leukocyte Esterase Negative Negative 11/16/2024 1:29 PM [facility] Urobilinogen UA Negative Negative mg/dL 11/16/2024 1:29 PM [facility] RBC UA 0-2 None Seen, 0-2, 3-5 /HPF 11/16/2024 1:29 PM [facility] WBC UA 0-5 None Seen, 0-5 /HPF 11/16/2024 1:29 PM [facility] Squamous Epithelial Cells UA 0-2 None Seen, 0-2, 3-5 /HPF 11/16/2024 1:29 PM [facility] Urine URINE SPECIMEN OBTAINED BY CLEAN CATCH PROCEDURE / Unknown Collection / Unknown 11/16/2024 1:08 PM [facility] 11/16/2024 1:22 PM [facility] - 11/16/2024 1:29 PM [employer] Neftali Read MD LAB - URINALYS IS ORDERABLES [facility] [address] [place] [id number], [facility] [phone] * PROTEIN URINE RANDOM QUANTITATIVE (11/16/2024 1:08 PM [employer]) Protein Urine <7 Not Established mg/dL 11/16/2024 1:43 PM [facility] Urine URINE SPECIMEN OBTAINED BY CLEAN CATCH PROCEDURE / Unknown Collection / Unknown 11/16/2024 1:08 PM [employer] 11/16/2024 1:22 PM [employer] Neftali Read MD LAB - URINE CH EMISTRY ORDERABLES Performing Organization Address City/[facility]/ZIP Co de Phone Number [address] [phone], [facility] [phone] * SODIUM URINE RANDOM (11/16/2024 1:08 PM [employer]) Sodium Urine 35 Not Established mmol/L 11/16/2024 1:43 PM [employer] [facility] Urine URINE SPECIMEN OBTAINED BY CLEAN CATCH PROCEDURE / Unknown Collection / Unknown 11/16/2024 1:08 PM DRIED FRUIT WASHER 11/16/2024 1:22 PM DRIED FRUIT WASHER Neftali Read MD LAB - URINE CH EMISTRY ORDERABLES Performing Organization Address [facility] Co de Phone Number [address] [address], [place] [phone] * UREA NITROGEN URINE RANDOM (11/16/2024 1:08 PM DRIED FRUIT WASHER) Urea Nitrogen Random Urine 295 Not Established mg/dL 11/16/2024 1:43 PM DRIED FRUIT WASHER [facility] Urine URINE SPECIMEN OBTAINED BY CLEAN CATCH PROCEDURE / Unknown Collection / Unknown 11/16/2024 1:08 PM DRIED FRUIT WASHER 11/16/2024 1:22 PM DRIED FRUIT WASHER Neftali Read MD LAB - URINE CH EMISTRY ORDERABLES Performing Organization Address [facility]/ZIP Co de Phone Number [address] [address], [place] [phone] * CREATININE URINE RANDOM (11/16/2024 1:08 PM DRIED FRUIT WASHER) Creatinine Urine 44.87 Not Established mg/dL 11/16/2024 1:43 PM DRIED FRUIT WASHER [facility] Urine URINE SPECIMEN OBTAINED BY CLEAN CATCH PROCEDURE / Unknown Collection / Unknown 11/16/2024 1:08 PM DRIED FRUIT WASHER 11/16/2024 1:22 PM DRIED FRUIT WASHER Neftali Read MD LAB - URINE CH EMISTRY ORDERABLES Performing Organization Address [facility]/ZIP Co de Phone Number [address] [address], [facility] [phone] * (ABNORMAL) VITAMIN D 25-HYDROXY (11/15/2024 12:56 AM DRIED FRUIT WASHER) Only the most recent of2 resultswithin the time period is included. Vitamin D, 25 Hydroxy 25.9(L) 30.0 - 80.0 ng/mL 11/15/2024 3:11 AM DRIED FRUIT WASHER [facility] Comment: The recommendations for 25-Hydroxy Vitamin D [...] Lab Venipuncture / Unknown 11/15/2024 12:56 AM DRIED FRUIT WASHER 11/15/2024 2:11 AM DRIED FRUIT WASHER Sol Deterding PA-C LAB - CHEMISTRY ORDERABLES Performing Organization Address [facility] Co de Phone Number [address] [address], [facility] [phone] * FOLATE (11/15/2024 12:56 AM DRIED FRUIT WASHER) Folate 10.0 7.0 - 31.4 ng/mL 11/15/2024 3:11 AM DRIED FRUIT WASHER [facility] Blood BLOOD SPECIMEN / Unknown Lab Venipuncture / Unknown 11/15/2024 12:56 AM DRIED FRUIT WASHER 11/15/2024 2:11 AM DRIED FRUIT WASHER Sol Deterding PA-C LAB - CHEMISTRY ORDERABLES Performing Organization Address City/[facility]/ZIP Co de Phone Number [address] [address], [facility] [phone] * VITAMIN B12 (11/15/2024 12:56 AM DRIED FRUIT WASHER) Vitamin B12 583 213 - 816 pg/mL 11/15/2024 3:11 AM [facility] Blood BLOOD SPECIMEN / Unknown Lab Venipuncture / Unknown 11/15/2024 12:56 AM DRIED FRUIT WASHER 11/15/2024 2:11 AM [facility] Sol Leal PA-C LAB - CHEMISTRY ORDERABLES [facility] [address] [place] [address], [facility] [phone] * (ABNORMAL) IRON + TRANSFERRIN PANEL (11/15/2024 12:56 AM DRIED FRUIT WASHER) Iron 19(L) 40 - 150 ug/dL 11/15/2024 3:01 AM [facility] Transferrin 151(L) 174 - 382 mg/dL 11/15/2024 3:01 AM [facility] Transferrin Saturation % 10(L) 16 - 50 % 11/15/2024 3:01 AM [facility] TIBC Calculated 189(L) 240 - 450 ug/dL 11/15/2024 3:01 AM [facility] Blood BLOOD SPECIMEN / Unknown Lab Venipuncture / Unknown 11/15/2024 12:56 AM DRIED FRUIT WASHER 11/15/2024 2:07 AM DRIED FRUIT WASHER Sol STRATTON-C LAB - CHEMISTRY ORDERABLES [facility] [address] [place] [address], [facility] [phone] * (ABNORMAL) FERRITIN (11/15/2024 12:56 AM DRIED FRUIT WASHER) Ferritin 668(H) 13 - 204 ng/mL 11/15/2024 3:19 AM [facility] Blood BLOOD SPECIMEN / Unknown Lab Venipuncture / Unknown 11/15/2024 12:56 AM DRIED FRUIT WASHER 11/15/2024 2:07 AM DRIED FRUIT WASHER Sol Leal PA-C LAB - CHEMISTRY ORDERABLES Performing Organization Address [facility] Co de Phone Number [address] [address], [facility] [phone] * HEMOGLOBIN A1C (11/14/2024 4:18 PM DRIED FRUIT WASHER) Hemoglobin A1c 5.0 <=5.6 % 11/14/2024 5:30 PM [facility] Estimated Average Glucose 97 mg/dL 11/14/2024 5:30 PM [facility] Comment: HbA1c Interpretation: Normal : < 5.7% Pre-diabetes: 5.7-6.4% Diabetes: Equal to or greater than 6.5% Test results diagnostic of diabetes should be repeated for confirmation. Treatment target values recommended by ADA and other clinical organizations should be used to evaluate metabolic control in patients. Reference: [place] [employer], Standards of Care in Diabetes -2020 In patients 70 years and older consider HbA1c target range of 7.0-7.5% (Reference: Samy Cunningham et al. JAMDA. 2012) The Sebia assay for the measurement of HbA1c is a National Glycohemoglobin Standardization Program (NGSP) certified method. Blood BLOOD SPECIMEN / Unknown Lab Venipuncture / Unknown 11/14/2024 4:18 PM DRIED FRUIT WASHER 11/14/2024 4:33 PM DRIED FRUIT WASHER Daryn North MD LAB - CHEMISTRY KONG JENSEN Performing Organization Address City/[facility] Co de Phone Number [facility] [address] [place] [address], [place] [phone] * ETT LINE PERFORMABLE (11/14/2024 7:57 AM DRIED FRUIT WASHER) Narrative Mauro Miguel Anes Asst - 11/14/2024 7:57 AM DRIED FRUIT WASHER Mauro Miguel Anes Asst 11/14/2024 7:57 AM Endotracheal Tube Placement: Patient Location: OR. Intubation Event Date/Time: 11/14/2024 7:33 AM Procedure: intubation ([id number]) Procedure Section: Sedation: IV sedation. Indications for [...] CBC W AUTO DIFFERENTIAL (11/14/2024 6:47 AM DRIED FRUIT WASHER) Only the most recent of2 resultswithin the time period is included. WBC 7.3 4.0 - 10.7 x10E9/L 11/14/2024 7:45 AM [facility] RBC Count 3.30(L) 3.90 - 5.20 x10E12/L 11/14/2024 7:45 AM [facility] Hemoglobin 8.9(L) 11.9 - 15.8 g/dL 11/14/2024 7:45 AM [facility] Hematocrit 27.8(L) 34.8 - 46.1 % 11/14/2024 7:45 AM [facility] MCV 84.2 80.0 - 98.0 fL 11/14/2024 7:45 AM [facility] MCH 27.0 26.7 - 33.6 pg 11/14/2024 7:45 AM [facility] MCHC 32.0 31.7 - 36.3 g/dL 11/14/2024 7:45 AM [facility] RDW-CV 14.9(H) 11.3 - 14.8 % 11/14/2024 7:45 AM [facility] Platelet Count 11/14/2024 7:45 AM [facility] Comment:Platelets clumped on slide but appears adequate. Recommend repeat with a sodium citrate blue top tube. MPV 11/14/2024 7:45 AM [facility] Comment:Unable to report Neutrophil % 73.6 41.0 - 74.0 % 11/14/2024 7:45 AM [facility] Lymphocyte % 16.6(L) 17.0 - 47.0 % 11/14/2024 7:45 AM [facility] Monocyte % 8.4 3.0 - 11.0 % 11/14/2024 7:45 AM [facility] Eosinophil % 0.8 0.0 - 7.0 % 11/14/2024 7:45 AM [facility] Basophil % 0.3 0.0 - 1.6 % 11/14/2024 7:45 AM [facility] Immature Granulocytes % 0.3 0.0 - 1.0 % 11/14/2024 7:45 AM [facility] Neutrophil Absolute 5.34 1.60 - 7.50 x10E9/L 11/14/2024 7:45 AM [facility] Lymphocyte Absolute 1.20 1.00 - 4.40 x10E9/L 11/14/2024 7:45 AM [facility] Monocyte Absolute 0.61 0.15 - 1.00 x10E9/L 11/14/2024 7:45 AM [facility] Eosinophil Absolute 0.06 0.00 - 0.60 x10E9/L 11/14/2024 7:45 AM [facility] Basophil Absolute 0.02 0.00 - 0.13 x10E9/L 11/14/2024 7:45 AM [facility] Blood BLOOD SPECIMEN / Unknown Venipuncture / Unknown 11/14/2024 6:47 AM DRIED FRUIT WASHER 11/14/2024 6:54 AM [facility] Flaco Rebollar MD LAB - HEMATOLOGY ORD ERABLES [facility] [address] [place] [address], [facility] [phone] * XR Wrist Left 3Vw or More (11/12/2024 9:24 AM DRIED FRUIT WASHER) Anatomical Region Laterality Modality Wrist / Hand Radiographic Christa ging 11/12/2024 9:34 AM DRIED FRUIT WASHER Impressions 11/12/2024 9:36 AM DRIED FRUIT WASHER IMPRESSION: Mildly displaced distal radial fracture. > Interpreting Provider: Yefri Groves MD on 11/12/2024 9:36 AM Narrative 11/12/2024 9:36 AM DRIED FRUIT WASHER PROCEDURE: XR WRIST LEFT 3VW OR MORE [...] * [place] [facility] (10/10/2024 11:01 AM DRIED FRUIT WASHER) Only the most recent of2 resultswithin the time period is included. Narrative [facility] - 10/10/2024 11:02 AM DRIED FRUIT WASHER Fluoroscopy was used for this exam in the OR. Please see the Operative report. Daryn North MD FLUOROSCOPY ORDERABL ES [facility] * IV PLACEMENT PERFORMABLE (10/10/2024 8:22 AM DRIED FRUIT WASHER) Karol Cat APRN-CRNA - 10/10/2024 8:22 AM DRIED FRUIT WASHER Karol Dunn APRN-CRNA 10/10/2024 8:23 AM Peripheral IV Line Placement: Patient Location: OR Procedure: IV start ([id number]) Procedure Section: Skin Prep: alcohol. Orientation: left Location: forearm Catheter Gauge: 18 Number of Attempts: 1. Procedure Tolerance: performed while patient under general anesthesia. Staff Section Anesthesia Provider: Karol Dunn APRN-CRNA, Performed the procedure Joey Oneal MD GENERAL ANESTHESIA O [place] * ETT LINE PERFORMABLE (10/10/2024 8:22 AM DRIED FRUIT WASHER) Karol Cat APRN-CRNA - 10/10/2024 8:22 AM DRIED FRUIT WASHER Karol Dunn APRN-CRNA 10/10/2024 8:22 AM Endotracheal Tube Placement: Patient Location: OR. Intubation Event Date/Time: 10/10/2024 7:43 AM Procedure: intubation ([id number]) Procedure Section: Sedation: under general anesthesia. Indications [...] AM. Staff Section Anesthesia Provider: Karol Dunn APRN-CRNA Performed the procedure Joey Oneal MD GENERAL ANESTHESIA O RDERABLES * XR Knee Right 2Vw or Less (09/21/2024 11:00 AM DRIED FRUIT WASHER) Only the most recent of2 resultswithin the time period is included. Anatomical Region Laterality Modality Lower Extremity Digital Radiogra phy 09/21/2024 7:17 PM DRIED FRUIT WASHER Impressions 09/21/2024 7:18 PM DRIED FRUIT WASHER IMPRESSION: Comminuted fracture of the proximal tibia with interval placement of traction pin in the distal femoral diaphysis. > Interpreting Provider: Natalio Nam on 09/21/2024 7:18 PM Narrative 09/21/2024 7:18 PM DRIED FRUIT WASHER PROCEDURE: XR KNEE RIGHT 2VW OR LESS [...] * IV PLACEMENT PERFORMABLE (09/19/2024 4:47 PM DRIED FRUIT WASHER) Karol Cat APRN-CRNA - 09/19/2024 4:47 PM DRIED FRUIT WASHER Karol Dunn APRN-CRNA 09/19/2024 4:47 PM Peripheral IV Line Placement: Patient Location: OR Insertion Time: 09/19/2024 4:39 PM Procedure: IV start ([id number]) Procedure Section: Skin Prep: alcohol. Orientation: left Location: hand Catheter Gauge: 20 Number of Attempts: 1. Procedure Tolerance: performed while patient under general anesthesia. Staff Section Anesthesia Provider: Karol Dunn APRN-CRNA Performed the procedure Chelsey Minaya MD GENERAL ANESTHESIA O [place] * ETT LINE PERFORMABLE (09/19/2024 4:46 PM DRIED FRUIT WASHER) Karol Cat APRN-CRNA - 09/19/2024 4:46 PM DRIED FRUIT WASHER Karol Dunn APRN-CRNA 09/19/2024 4:47 PM Endotracheal Tube Placement: Patient Location: OR. Intubation Event Date/Time: 09/19/2024 4:23 PM Procedure: intubation ([id number]) Procedure Section: Sedation: under general anesthesia. Indications [...] 09/19/2024 4:23 PM. Staff Section Anesthesia Provider: Vanlue, Karol E, RESPIRATORY CARE PROGRAM DIRECTOR-KINDERGARTEN PREP TEACHER, Performed the procedure Chelsey Minaya MD GENERAL ANESTHESIA O RDERABLES * CT Tibia Fibula Right Wo Cont (09/19/2024 1:14 AM DRIED FRUIT WASHER) Anatomical Region Laterality Modality Lower Extremity Computed Tomogra phy 09/19/2024 1:28 AM DRIED FRUIT WASHER Impressions 09/19/2024 1:47 AM DRIED FRUIT WASHER IMPRESSION: 1.Acute comminuted and moderately displaced fracture of the proximal tibia with intra-articular extension involving the medial and lateral tibial plateaus. 2.Soft tissue swelling about the knee and proximal lower leg with small volume hemarthrosis. Report dictated by Valentín Zheng MD (resident in diagnostic radiology). I, Alejandro Hung MD have personally reviewed and interpreted this examination/study. > Interpreting Provider: Alejandro Hung MD on 09/19/2024 1:47 AM Narrative 09/19/2024 1:47 AM DRIED FRUIT WASHER PROCEDURE: CT KNEE RIGHT WO CONTRAST, CT TIBIA FIBULA RIGHT WO CONT, DATE/TIME OF EXAM: 09/19/2024 1:15 AM, LOCATION [facility] INDICATION: M79.604: Right leg pain ADDITIONAL CLINICAL INFORMATION: Ordering Provider Reason For Exam: eval fracture (accession [id number]), fracture (accession [id number]) COMPARISON: Right knee and right tibia-fibula radiographs [...] DATE/TIME OF EXAM: 09/19/2024 1:15 AM, LOCATION [facility] INDICATION: M79.604: Right leg pain ADDITIONAL CLINICAL INFORMATION: Ordering Provider Reason For Exam: eval fracture (accession [id number]), fracture (accession [id number]) COMPARISON: Right knee and right tibia-fibula radiographs [...] hemarthrosis. Report dictated by Valentín Zheng MD (resident in diagnostic radiology). I, Alejandro Hung MD have personally reviewed and interpreted this examination/study. > Interpreting Provider: Alejandro Hung MD on 09/19/2024 1:47 AM Adeola Carreon MD CT ORDERABLES * CT Knee Right Wo Contrast (09/19/2024 1:14 AM DRIED FRUIT WASHER) Anatomical Region Laterality Modality Lower Extremity Computed Tomogra phy 09/19/2024 1:28 AM DRIED FRUIT WASHER Impressions 09/19/2024 1:47 AM DRIED FRUIT WASHER IMPRESSION: 1.Acute comminuted and moderately displaced fracture of the proximal tibia with intra-articular extension involving the medial and lateral tibial plateaus. 2.Soft tissue swelling about the knee and proximal lower leg with small volume hemarthrosis. Report dictated by Valentín Zheng MD (resident in diagnostic radiology). I, Alejandro Hung MD have personally reviewed and interpreted this examination/study. > Interpreting Provider: Alejandro Hung MD on 09/19/2024 1:47 AM Narrative 09/19/2024 1:47 AM DRIED FRUIT WASHER PROCEDURE: CT KNEE RIGHT WO CONTRAST, CT TIBIA FIBULA RIGHT WO CONT, DATE/TIME OF EXAM: 09/19/2024 1:15 AM, LOCATION [facility] INDICATION: M79.604: Right leg pain ADDITIONAL CLINICAL INFORMATION: Ordering Provider Reason For Exam: eval fracture (accession [id number]), fracture (accession [id number]) COMPARISON: Right knee and right tibia-fibula radiographs [...] DATE/TIME OF EXAM: 09/19/2024 1:15 AM, LOCATION [facility] INDICATION: M79.604: Right leg pain ADDITIONAL CLINICAL INFORMATION: Ordering Provider Reason For Exam: eval fracture (accession [id number]), fracture (accession [id number]) COMPARISON: Right knee and right tibia-fibula radiographs [...] hemarthrosis. Report dictated by Valentín Zheng MD (resident in diagnostic radiology). I, Alejandro Hung MD have personally reviewed and interpreted this examination/study. > Interpreting Provider: Alejandro Hung MD on 09/19/2024 1:47 AM Adeola Carreon MD CT ORDERABLES * XR Foot Right 3Vw or More (09/19/2024 12:45 AM DRIED FRUIT WASHER) Anatomical Region Laterality Modality Ankle / Foot Digital Radiogra phy 09/19/2024 1:25 AM DRIED FRUIT WASHER Narrative 09/19/2024 9:28 AM DRIED FRUIT WASHER PROCEDURE: XR FOOT RIGHT 3VW OR MORE, DATE/TIME OF EXAM: 09/19/2024 12:45 AM, LOCATION [facility] INDICATION: M79.604: Right leg pain ADDITIONAL CLINICAL [...] MORE, DATE/TIME OF EXAM: 2:45 AM, LOCATION [facility] INDICATION: M79.604: Right leg pain ADDITIONAL CLINICAL [...] the patient. Procedure Code(s): --- Professional --- 63516, Colonoscopy, flexible; with removal of tumor(s), polyp(s), or other lesion(s) by snare technique 84101, 59, Colonoscopy, flexible; with biopsy, single or multiple Diagnosis Code(s): --- Professional --- Z12.11, Encounter for screening for malignant neoplasm of colon D12.0, Benign neoplasm of cecum CPT copyright 2021 [employer] [employer]. All rights reserved. The codes documented in this report are preliminary and upon steam powerplant supervisor review may be revised to meet current compliance requirements. Balwinder Goncalves MD 05/30/2024 10:32:28 AM This report has been signed electronically. Note Initiated On: 05/30/2024 9:42 AM Number of Addenda: [id number] [place] [address] PROVATION 05/30/2024 9:42 AM CDT Balwinder Goncalves MD GI PROCEDURE ORDERAB LES [facility] from Last 3 Months or Most [...] 12:27 PM 03/16/2021 2:18 PM Care Teams Manager Internet Relationship Specialty Start Date End Date Geovanni Rodriguez DO [address] [place] [address] PCP - General Internal Medicine 09/19/24
--- OUTSIDE RECORDS SUMMARY | 2024-11-27 13:30 | XMS_ITS | Continuity of Care Document ---
Author Organization [facility] Address [address] [place] [address] Phone Care Team Providers Care Auto Damage Trainee Name Role Phone Remedios Lux Unavailable Unavailable Advance Directives Directive Yes / No Effective Date File Name No Information Encounters Encounter Description Practice Location Reason(s) For Visit Diagnoses Date Provider Providers Copied on Encounter [facility], [address] [place] [address] [address], [place], [place], [id number], [place] tel:[phone] [facility] No Information Dec-3 1-200 6 Maci Whittaker. [address] , [place] [address], [place], [address], [place]. tel:[phone] Referring Provider: Harrison Harding MD, [address] [place], [address]. tel:[phone] Family History Family Member Type Diagnosis Age At Onset No Information Payers Payer name Insurance type Covered libertarian ID Authoriza tion(s) No Information Social History [...]
--- OUTSIDE RECORDS SUMMARY | 2024-11-27 13:30 | XMS_ITS | Referral Summary ---
Author Organization [facility] Address [address] [place] [address] Care Team Providers Care Dramatic Coach Name Role Phone Geovanni Rodriguez Primary Care Provider [phone] Source Comments [facility],non-owned Affiliates and Associated Physician Practices is amultiple site organization consisting of ambulatory clinics and hospital sitesin [place], [place], [place] and [place]. This disclosure is being madepursuant to the Care Everywhere program and may not contain all information available regarding this patient. Last updated 18.[facility] Encounters Date Type Department Care Team Description 11/26/2024 9:24 AM HOSTING ENGINEER - 11/26/2024 11:59 PM HOSTING ENGINEER Hospital Encounter [facility]NOSTIC RAD CSM [address]L [address] [place] [address] Daryn North MD Discharge Disposition: Home or Self Care 11/26/2024 Orders Only [facility] - Orthopedics [address] [place] [address] Daryn North MD Closed fracture of lateral portion of right tibial plateau, initial encounter 11/26/2024 Travel 11/26/2024 8:00 AM HOSTING ENGINEER Office Visit Transitional Care at [address] [phone] Nikhil Godinez III, MD Surgical site infection (Primary Dx); Elevated LFTs 11/26/2024 10:30 AM HOSTING ENGINEER Office Visit [facility] - Orth[facility]ics [address] [place] [phone] Daryn North MD Surgical site infection 11/25/2024 Telephone [facility] [place] [facility] - Infectious Disease [address] [place] [phone] Missy Vogel PA-C Follow-up 11/25/2024 Telephone Transitional Care at [address] [phone] Candy Figueroa MA Reminder Call 11/21/2024 Telephone Transitional Care at [address] [phone] Nadia Love RN Transitional Care 11/14/2024 5:27 AM HOSTING ENGINEER - 11/20/2024 6:39 PM HOSTING ENGINEER Hospital Encounter [facility] SHORT STAY UNIT [address] [place] [phone] Daryn North MD Surgery General Discharge Disposition: [place] Health Care [facility] [place] 11/17/2024 7:05 AM HOSTING ENGINEER - 11/17/2024 9:31 AM HOSTING ENGINEER Surgery [facility] [address] [place] [address] Daryn North MD IRRIGATION/DEBRIDEM ENT RIGHT KNEE WOUND, ANTIBIOTIC BEAD PLACEMENT, INCISIONAL PREVENA PLACEMENT, WOUND CLOSURE 11/17/2024 7:26 AM HOSTING ENGINEER Anesthesia Event [facility] [address] [place] [address] Annie Carter MD Chase, Charles C, Anes Assmariano 11/14/2024 7:05 AM HOSTING ENGINEER - 11/14/2024 8:50 AM HOSTING ENGINEER Surgery [facility] [address] [place] [address] Daryn North MD Irrigation and debridement of right knee surgical site infection with wound vac placement 11/14/2024 7:23 AM HOSTING ENGINEER Anesthesia Event [facility] [address] [place] [address] Kin Aden MD Keeven, Grace C, DIGITAL X RAY SERVICE ENGINEER-GRAPHICS ARTIST 11/12/2024 9:17 AM HOSTING ENGINEER - 11/12/2024 11:59 PM HOSTING ENGINEER Hospital Encounter [facility] CSM [address] [facility] [place] [address] Daryn North MD Discharge Disposition: Home or Self Care 11/12/2024 9:17 AM HOSTING ENGINEER - 11/12/2024 11:59 PM HOSTING ENGINEER Hospital Encounter [facility] CSM [address] [facility] [place] [address] Daryn North MD Discharge Disposition: Home or Self Care 11/12/2024 Orders Only [facility] [address] [place] [phone] Daryn North MD Closed fracture of lateral portion of right tibial plateau, initial encounter ; Closed fracture of left wrist, initial encounter 11/12/2024 Travel 11/12/2024 9:00 AM HOSTING ENGINEER [facility] [address] [place] [phone] Daryn North MD Pate, Katherine M, PA-C Closed fracture of lateral portion of right tibial plateau, initial encounter (Primary Dx); Surgical site infection; Closed nondisplaced fracture of styloid process of left radius, initial encounter 10/27/2024 Travel 10/27/2024 12:30 PM HOSTING ENGINEER Office Visit [facility] [address] [place] [phone] Adeola Mendez MD Closed fracture of lateral portion of right tibial plateau, initial encounter (Primary Dx) 10/22/2024 11:17 AM HOSTING ENGINEER - 10/22/2024 11:59 PM HOSTING ENGINEER Hospital Encounter [facility] CSM [address] [facility] [place] [address] Daryn North MD Discharge Disposition: Home or Self Care 10/22/2024 Travel 10/22/2024 Orders Only [facility] - Orth[facility]ics [address] [place] [phone] Daryn North MD Closed fracture of lateral portion of right tibial plateau, initial encounter 10/22/2024 12:30 PM HOSTING ENGINEER Office Visit [facility] [address] [place] [phone] Daryn North MD Closed bicondylar fracture of right tibial plateau (Primary Dx) 10/16/2024 Transitional Care [facility] - Care Coordination [address] [place] [address] Liza Steinberg, gi technician 10/14/2024 Transitional Care [facility] - Care Coordination [address] [place] [address] Liza Steinberg, gi technician 10/10/2024 5:43 AM HOSTING ENGINEER - 10/13/2024 3:43 PM HOSTING ENGINEER Hospital Encounter [facility] [address] [place] [address] Daryn North MD Surgery General Discharge Disposition: Home Health Care [facility] [place] 10/10/2024 7:15 AM HOSTING ENGINEER - 10/10/2024 10:45 AM HOSTING ENGINEER Surgery [facility] [address] [place] [phone] Daryn North MD Open reduction internal fixation of right bicondylar tibial plateau fracture, repair of lateral meniscus right, removal of external fixator right 10/10/2024 7:27 AM HOSTING ENGINEER Anesthesia Event [facility] [address] [place] [phone] Joey Oneal MD Osterloh, Joan Frances, DIGITAL X RAY SERVICE ENGINEER-DIVING FISHER 10/06/2024 Telephone [facility] [address] [place] [phone] Adeola Mendez MD Pre-op Clearance 10/02/2024 Travel 09/29/2024 Travel 09/29/2024 9:15 AM HOSTING ENGINEER Office Visit [facility] Orth[facility] [address] [facility] [place] [phone] Adeola Mendez MD Adams, Karra N, DIGITAL X RAY SERVICE ENGINEER-GRAPHICS ARTIST Closed fracture of lateral portion of right tibial plateau, initial encounter (Primary Dx) 09/25/2024 Transitional Care [facility] - Care Coordination [address] [place] [phone] Fiordaliza Neville, gi technician 09/24/2024 Transitional Care [facility] - Care Coordination [address] [place] [phone] Fiordaliza Neville RNgi technician 09/24/2024 Transitional Care [facility] - Care Coordination [address] [place] [phone] Haydee Curtis RNgi technician 09/18/2024 10:44 PM HOSTING ENGINEER - 09/23/2024 9:47 PM HOSTING ENGINEER Hospital Encounter [facility] 6N ACUTE [address] [place] [phone] Adeola Carreon MD Swan, Erin R, MD Orthopedics Discharge Disposition: Home Health Care [facility] [place] 09/19/2024 4:12 PM HOSTING ENGINEER Anesthesia Event [facility] [address] [place] [phone] Dorinda Stevens MD McDowell, Jacob A, Anes Asst 09/19/2024 3:50 PM HOSTING ENGINEER - 09/19/2024 4:50 PM HOSTING ENGINEER Surgery [facility] [address] [place] [phone] Marifer Saeed MD RIGHT TIBIA CLOSED REDUCTION [...] capsule by mouth once daily 1 Active amLODIPine [...] fasciitis Immunizations Name Administration Dates Next Due Covid [...] Recorded Patient Health Questionnaire-2 Score 1 11/26/2024 [facility] - Occupational [...] any time in the past 12 m [facility], were you homeless or living in a prison (including now)? No 11/15/2024 Sex and Gender Information Value Date Recorded Sex Assigned at Female 06/03/2023 3:57 PM CDT Gender Identity Female 06/03/2023 3:57 PM CDT Sexual Orientation Not on file Last Filed Vital Signs Vital Sign Reading Time Taken Comments Blood Pressure 138/73 11/26/2024 7:43 AM HOSTING ENGINEER Pulse 70 11/26/2024 7:43 AM HOSTING ENGINEER Temperature 36.7 C (98 F) 11/26/2024 7:43 AM HOSTING ENGINEER Respiratory Rate 18 11/26/2024 7:43 AM HOSTING ENGINEER Oxygen Saturation 97% 11/26/2024 7:43 AM HOSTING ENGINEER Inhaled Oxygen Concentration 40% 10/10/2024 1 2:23 PM HOSTING ENGINEER Weight 89.4 kg (197 lb) 11/26/2024 9:39 AM HOSTING ENGINEER Height 167.6 cm (5' 6 ) 11/26/2024 9:39 AM HOSTING ENGINEER Body Mass Index 31.8 11/26/2024 9:39 AM HOSTING ENGINEER Functional Status Functional Status Response Date of [...] st Contact Info) Description 12/02/2024 1:40 PM HOSTING ENGINEER Office Visit [facility] - Rheumatology [address] [place] [phone] Meryl Cuenca MD [address] [place] [address] [place] [address] 12/03/2024 10:15 AM HOSTING ENGINEER Office Visit [facility] [address] [place] [phone] Daryn North MD [address] [place] [address] [place] [address] 12/25/2024 10:00 AM CDT Office Visit [facility]ious Disease [address] [place] [phone] Missy Vogel PA-C [address] [place] [address] 01/15/2025 10:00 AM CDT Office Visit [facility] - [address], [place] [phone] Goals Goal Patient Goal Type Associated Problems Recent Progress Patient-Stated? Author Mobility General On track( 025 10:37 AM HOSTING ENGINEER) Ayaka Siegel RN Note: Expected end date: 10/14/21 The goal is to maintain or improve your mobility at the optimum level for you. Interventions: Medical Devices Implanted Type Area Fruit And Vegetable Inspector Device Identifier Shelf Expiration Date Model / Serial / Lot Screw 3.5mm 50mm 2.5mm Slf-Tap Sm Hex Implanted:Qty : 1 on 03/15/2021 by Sukumar Magaña DO at [facility] Right: [employer] [id number] / / Screw 3.5mm 55mm 2.5mm Slf-Tap Sm Hex Implanted:Qty : 1 on 03/15/2021 by Sukumar Magaña DO at [facility] Right: [employer] [id number] / / Plate 2 Hl 2 Comp Colr 25mm 1/3 Tblr Implanted:Qty : 1 on 03/15/2021 by Sukumar Magaña DO at [facility] Right: [employer] [id number] / / Sub Bngf 4.8mm Ostst Ca Slf Pelt Implanted:Qty : 1 on 03/15/2021 by Sukumar Magaña DO at [facility] [employer] [id number] / / [id number] Screw 4.7mm 5.6mm 36mm 2.5mm Ft Va Lopro Implanted:Qty : 2 on 10/10/2024 by Daryn North MD at [facility] Right: [employer]ia [employer] 11/26/2033 [id number] / / [id number] Screw 4.7mm 5.6mm 28mm 2.5mm Ft Va Lopro Implanted:Qty : 1 on 10/10/2024 by Daryn North MD at [facility] Right: [employer] 03/12/2032 [id number] / / [id number] Screw 4.7mm 5.6mm 32mm 2.5mm Ft Va Lopro Implanted:Qty : 1 on 10/10/2024 by Daryn North MD at [facility] Right: [employer] [id number] 10/19/2030 [id number] / / [id number] Agent Hmst Thrmb Kt Surgiflo 2ml Implanted:Qty : 2 on 10/10/2024 by Daryn North MD at [facility] Right: Tibia [employer] [id number] / / Screw 3.5mm 26mm Slf-Tap Cortx Evos Strl Implanted:Qty : 1 on 10/10/2024 by Daryn North MD at [facility] Right: [employer] [id number] / / Screw 3.5mm 32mm Slf-Tap Cortx Evos Strl Implanted:Qty : 1 on 10/10/2024 by Daryn North MD at [facility] Right: [employer] [id number] / / Screw 3.5mm 34mm Slf-Tap Cortx Evos Strl Implanted:Qty : 1 on 10/10/2024 by Daryn North MD at [facility] Right: [employer] [id number] / / Screw 3.5mm 15mm Slf-Tap Lck Evos Strl Implanted:Qty : 1 on 10/10/2024 by Daryn North MD at [facility] Right: [employer] [id number] / / Plate 9 Hl Va Lck Fib Lt Dist 125mm Implanted:Qty : 1 on 10/10/2024 by Daryn North MD at [facility] Right: [employer] [id number] / / Screw 3.5mm 32mm Ft Slf-Tap Hex Lopro Implanted:Qty : 1 on 10/10/2024 by Daryn North MD at [facility] Right: [employer] [id number] / / Screw 3.5mm 60mm T15 Lck Slf-Tap Tip Tpr Implanted:Qty : 1 on 10/10/2024 by Daryn North MD at [facility] Right: [employer] [id number] / / Screw 3.5mm 65mm T15 Lck Slf-Tap Tip Tpr Implanted:Qty : 3 on 10/10/2024 by Daryn North MD at [facility] Right: [employer] [id number] / / Screw 3.5mm 70mm T15 Lck Slf-Tap Tip Tpr Implanted:Qty : 1 on 10/10/2024 by Daryn North MD at [facility] Right: [employer] [id number] / / Plate 9 Hl Lck Lopro Dist Blt Tip Tib Rt Implanted:Qty : 1 on 10/10/2024 by Daryn North MD at [facility] Right: [employer] [id number] / / Screw 3.5mm 75mm T15 Lck Slf-Tap Tip Tpr Implanted:Qty : 2 on 10/10/2024 by Daryn North MD at [facility] Right: [employer] [id number] / / Screw 3.5mm 40mm Ft Slf-Tap Hex Lopro Implanted:Qty : 1 on 10/10/2024 by Daryn North MD at [facility] Right: [employer] [id number] / / Screw 3.5mm 20mm T15 Slf-Tap Lck Tpr Implanted:Qty : 1 on 10/10/2024 by Daryn North MD at [facility] Right: [employer] [id number] / / Cmnt Bone Smpx Ptbr Fd Radopq Prebl Implanted:Qty : 1 on 11/17/2024 by Daryn North MD at [facility] Right: Knee [employer] 01/12/2026 6197-9-010 / / [id number] Bone Void 10cc 20cc Ca Slf Stimulan Implanted:Qty : 1 on 11/17/2024 by Daryn North MD at [facility] Right: [employer]nee [employer] 07/14/2027 620-010 / / [id number] Explanted Type Area Fruit And Vegetable Inspector Device Identifier Shelf Expiration Date Model / Serial / Lot Wire K 2mm 150mm 1 End Troc Pnt Ss Sm Explanted:Qty: 1 on 03/15/2021 by Sukumar Magaña DO at [facility] Right: [employer] [id number] / / Screw 3.5mm 60mm 2.5mm Slf-Tap Sm Hex Explanted:Qty: 1 on 03/15/2021 by Sukumar Magaña DO at [facility] Right: [employer] [id number] / / Cplng Extfix Hfmn 3 Nikhil To Nikhil Salomón Explanted:Qty: 4 on 09/19/2024 by Marifer Saeed MD at [facility] Right: [employer] [id number] / / Screw 3.5mm 38mm Slf-Tap Cortx Evos Strl Explanted:Qty: 1 on 10/10/2024 by Daryn North MD at [facility] Right: [employer] [id number] / / Screw 3.5mm 42mm Slf-Tap Cortx Evos Strl Explanted:Qty: 1 on 10/10/2024 by Daryn North MD at [facility] Right: [employer] [id number] / / Wire K 1.6mm 150mm Troc Pnt Ss Fx Strl Explanted:Qty: 1 on 10/10/2024 by Daryn North MD at [facility] Right: [employer] [id number] / / Plate 11 Hl Va Lck Lopro Fib Lt Dist Lat Explanted:Qty: 1 on 10/10/2024 by Daryn North MD at [facility] Right: [employer] [id number] / / Wire K 1.6mm 6in Hlf Bynt Pnt Ss Fx Explanted:Qty: 3 on 10/10/2024 by Daryn North MD at [facility] Right: [employer] [id number] / / Pin Hlf 180mm 5mm Apx Hfmn2 Canc Ss Implanted:Qty: 2 on 09/19/2024 by Marifer Saeed MD at [facility] Explanted:Qty: 2 on 10/10/2024 by Daryn North MD at [facility] Right: [employer] [id number] / / Pin Hlf 200mm 5mm Apx Hfmn2 Orth Ss Thrd Implanted:Qty: 2 on 09/19/2024 by Marifer Saeed MD at [facility] Explanted:Qty: 2 on 10/10/2024 by Daryn North MD at [facility] Right: [employer] [id number] / / Procedures Procedure Name Priority Date/Time Associated Diagnosis Comments XR TIBIA FIBULA RIGHT 2VW Routine 11/26/2024 9:34 AM HOSTING ENGINEER Closed fracture of lateral portion of right tibial plateau, initial encounter COMPREHENSIVE METABOLIC PANEL Routine 11/26/2024 8:49 AM HOSTING ENGINEER Elevated LFTs GLUCOSE - POINT OF CARE Routine 11/20/2024 1:30 PM HOSTING ENGINEER GLUCOSE - POINT OF CARE Routine 11/20/2024 8:10 AM HOSTING ENGINEER BASIC METABOLIC PANEL (CALCIUM TOTAL) AM Draw 11/20/2024 12:49 AM HOSTING ENGINEER HEPATITIS C AB SCREEN RFLX NAAT QUANT Routine 11/20/2024 12:48 AM HOSTING ENGINEER HIV-1 HIV-2 ANTIBODY + HIV P24 AG PANEL Routine 11/20/2024 12:48 AM HOSTING ENGINEER HEPATITIS SCREEN ACUTE AM Draw 11/20/2024 12:48 AM HOSTING ENGINEER CBC W/O DIFFERENTIAL AM Draw 11/20/2024 12:48 AM HOSTING ENGINEER GLUCOSE - POINT OF CARE Routine 11/19/2024 9:06 PM HOSTING ENGINEER GLUCOSE - POINT OF CARE Routine 11/19/2024 5:26 PM HOSTING ENGINEER HEMOGLOBIN Timed 11/19/2024 3:37 PM HOSTING ENGINEER GLUCOSE - POINT OF CARE Routine 11/19/2024 1:18 PM HOSTING ENGINEER TRANSFUSE RED BLOOD CELL LEUKOREDUCED UNIT(S) Routine 11/19/2024 9:30 AM HOSTING ENGINEER PREPARE RBC LEUKOREDUCED UNIT Routine 11/19/2024 9:14 AM HOSTING ENGINEER GLUCOSE - POINT OF CARE Routine 11/19/2024 8:22 AM HOSTING ENGINEER TYPE + SCREEN PANEL STAT 11/19/2024 6 :24 AM HOSTING ENGINEER HEPATIC FUNCTION PANEL AM Draw 11/19/2024 12:15 AM HOSTING ENGINEER CBC W/O DIFFERENTIAL AM Draw 11/19/2024 12:15 AM HOSTING ENGINEER BASIC METABOLIC PANEL (CALCIUM TOTAL) AM Draw 11/19/2024 12:15 AM HOSTING ENGINEER GLUCOSE - POINT OF CARE Routine 11/18/2024 7:54 PM HOSTING ENGINEER GLUCOSE - POINT OF CARE Routine 11/18/2024 5:44 PM HOSTING ENGINEER GLUCOSE - POINT OF CARE Routine 11/18/2024 12:35 PM HOSTING ENGINEER EKG 12-LEAD Routine 11/18/2024 11:30 AM HOSTING ENGINEER Closed fracture of right tibia and fibula, initial encounter GLUCOSE - POINT OF CARE Routine 11/18/2024 8:30 AM HOSTING ENGINEER CBC W/O DIFFERENTIAL AM Draw 11/18/2024 12:20 AM HOSTING ENGINEER BASIC METABOLIC PANEL (CALCIUM TOTAL) AM Draw 11/18/2024 12:20 AM HOSTING ENGINEER GLUCOSE - POINT OF CARE Routine 11/17/2024 9:12 PM HOSTING ENGINEER GLUCOSE - POINT OF CARE Routine 11/17/2024 5:19 PM HOSTING ENGINEER VAS BILATERAL VENOUS DUPLEX LE Routine 11/17/2024 12:30 PM HOSTING ENGINEER Closed fracture of right tibia and fibula, initial encounter GLUCOSE - POINT OF CARE Routine 11/17/2024 11:45 AM HOSTING ENGINEER CULTURE ANAEROBE STAT 11/17/2024 8:38 AM HOSTING ENGINEER CULTURE WOUND+GRAM STAIN STAT 11/17/2024 8:38 AM HOSTING ENGINEER CULTURE ANAEROBE STAT 11/17/2024 8:36 AM HOSTING ENGINEER CULTURE WOUND+GRAM STAIN STAT 11/17/2024 8:36 AM HOSTING ENGINEER ENDOTRACHEAL TUBE NOTE Routine 11/17/2024 7:55 AM HOSTING ENGINEER SD EXPLORE WOUND,EXTREMITY 11/17/2024 7:07 AM HOSTING ENGINEER Injury of right knee, initial encounter CBC W/O DIFFERENTIAL AM Draw 11/17/2024 12:44 AM HOSTING ENGINEER BASIC METABOLIC PANEL (CALCIUM TOTAL) AM Draw 11/17/2024 12:44 AM HOSTING ENGINEER GLUCOSE - POINT OF CARE Routine 11/16/2024 7:59 PM HOSTING ENGINEER GLUCOSE - POINT OF CARE Routine 11/16/2024 6:01 PM HOSTING ENGINEER URINALYSIS REFLEX TO MICROSCOPIC NO CULTURE Routine 11/16/2024 1:08 PM HOSTING ENGINEER PROTEIN URINE RANDOM QUANTITATIVE Routine 11/16/2024 1:08 PM HOSTING ENGINEER UREA NITROGEN URINE RANDOM Routine 11/16/2024 1:08 PM HOSTING ENGINEER CREATININE URINE RANDOM Routine 11/16/2024 1:08 PM HOSTING ENGINEER SODIUM URINE RANDOM Routine 11/16/2024 1 :08 PM HOSTING ENGINEER GLUCOSE - POINT OF CARE Routine 11/16/2024 11:33 AM HOSTING ENGINEER GLUCOSE - POINT OF CARE Routine 11/16/2024 8:17 AM HOSTING ENGINEER CBC W/O DIFFERENTIAL AM Draw 11/16/2024 12:21 AM HOSTING ENGINEER BASIC METABOLIC PANEL (CALCIUM TOTAL) AM Draw 11/16/2024 12:21 AM HOSTING ENGINEER GLUCOSE - POINT OF CARE Routine 11/15/2024 8:18 PM HOSTING ENGINEER GLUCOSE - POINT OF CARE Routine 11/15/2024 6:00 PM HOSTING ENGINEER GLUCOSE - POINT OF CARE Routine 11/15/2024 1:13 PM HOSTING ENGINEER GLUCOSE - POINT OF CARE Routine 11/15/2024 9:10 AM HOSTING ENGINEER VITAMIN D 25-HYDROXY AM Draw 11/15/2024 12:56 AM HOSTING ENGINEER FERRITIN Routine 11/15/2024 12:56 AM HOSTING ENGINEER IRON + TRANSFERRIN PANEL Routine 11/15/2024 12:56 AM HOSTING ENGINEER VITAMIN B12 AM Draw 11/15/2024 12:56 AM HOSTING ENGINEER FOLATE Routine 11/15/2024 12:56 AM HOSTING ENGINEER CBC W/O DIFFERENTIAL AM Draw 11/15/2024 12:56 AM HOSTING ENGINEER BASIC METABOLIC PANEL (CALCIUM TOTAL) AM Draw 11/15/2024 12:56 AM HOSTING ENGINEER GLUCOSE - POINT OF CARE Routine 11/14/2024 10:25 PM HOSTING ENGINEER GLUCOSE - POINT OF CARE Routine 11/14/2024 5:53 PM HOSTING ENGINEER COMPREHENSIVE METABOLIC PANEL Routine 11/14/2024 4:18 PM HOSTING ENGINEER HEMOGLOBIN A1C Routine 11/14/2024 4:18 PM HOSTING ENGINEER PT EVAL AND TREAT ORTHO/TRAUMA Routine 11/14/2024 9:08 AM HOSTING ENGINEER OT EVAL AND TREAT ORTHO/TRAUMA Routine 11/14/2024 9:08 AM HOSTING ENGINEER CULTURE ANAEROBE STAT 11/14/2024 8:21 AM HOSTING ENGINEER CULTURE WOUND+GRAM STAIN STAT 11/14/2024 8:21 AM HOSTING ENGINEER CULTURE ANAEROBE STAT 11/14/2024 8:10 AM HOSTING ENGINEER CULTURE WOUND+GRAM STAIN STAT 11/14/2024 8:10 AM HOSTING ENGINEER CULTURE ANAEROBE STAT 11/14/2024 8:10 AM HOSTING ENGINEER CULTURE WOUND+GRAM STAIN STAT 11/14/2024 8:10 AM HOSTING ENGINEER ENDOTRACHEAL TUBE NOTE Routine 11/14/2024 7:57 AM HOSTING ENGINEER SD RENE SUBQ TISSUE 20 SQ CM/< 11/14/2024 6:58 AM HOSTING ENGINEER Surgical site infection Special Needs Supine C-ARM CBC W AUTO DIFFERENTIAL STAT 11/14/2024 6:47 AM HOSTING ENGINEER Arthralgia of right ankle TYPE + SCREEN PANEL Routine 11/14/2024 6 :17 AM HOSTING ENGINEER XR WRIST LEFT 3VW OR MORE Routine 11/12/2024 9:24 AM HOSTING ENGINEER Closed fracture of left wrist, initial encounter XR TIBIA FIBULA RIGHT 2VW Routine 11/12/2024 9:22 AM HOSTING ENGINEER Closed fracture of lateral portion of right tibial plateau, initial encounter XR TIBIA FIBULA RIGHT 2VW Routine 10/22/2024 11:26 AM HOSTING ENGINEER Closed fracture of lateral portion of right tibial plateau, initial encounter CBC W/O DIFFERENTIAL AM Draw 10/13/2024 1:55 AM HOSTING ENGINEER Closed fracture of right tibia and fibula, initial encounter BASIC METABOLIC PANEL (CALCIUM TOTAL) AM Draw 10/13/2024 1:55 AM HOSTING ENGINEER Closed fracture of right tibia and fibula, initial encounter CBC W/O DIFFERENTIAL AM Draw 10/12/2024 1:03 PM HOSTING ENGINEER Closed fracture of right tibia and fibula, initial encounter BASIC METABOLIC PANEL (CALCIUM TOTAL) AM Draw 10/12/2024 4:18 AM HOSTING ENGINEER Closed fracture of right tibia and fibula, initial encounter CBC W/O DIFFERENTIAL AM Draw 10/11/2024 2:13 AM HOSTING ENGINEER Closed fracture of right tibia and fibula, initial encounter BASIC METABOLIC PANEL (CALCIUM TOTAL) AM Draw 10/11/2024 2:13 AM HOSTING ENGINEER Closed fracture of right tibia and fibula, initial encounter XR TIBIA FIBULA RIGHT 2VW STAT 10/10/2024 1:17 PM HOSTING ENGINEER Closed fracture of right tibia and fibula, initial encounter [facility] STAT 10/10/2024 11:01 AM HOSTING ENGINEER Closed fracture of right tibia and fibula, initial encounter PERIPHERAL IV NOTE Routine 10/10/2024 8: 22 AM HOSTING ENGINEER ENDOTRACHEAL TUBE NOTE Routine 10/10/2024 8:22 AM HOSTING ENGINEER SD OPEN RX BILAT TIB PLAT FX 10/10/2024 7:15 AM HOSTING ENGINEER Closed fracture of lateral portion of right tibial plateau, initial encounter Special Needs Supine C-Arm TYPE + SCREEN PANEL Routine 10/10/2024 6 :24 AM HOSTING ENGINEER CBC W/O DIFFERENTIAL AM Draw 09/23/2024 6:31 AM HOSTING ENGINEER Closed fracture of right tibia and fibula, initial encounter BASIC METABOLIC PANEL (CALCIUM TOTAL) AM Draw 09/23/2024 6:31 AM HOSTING ENGINEER Closed fracture of right tibia and fibula, initial encounter CBC W/O DIFFERENTIAL AM Draw 09/22/2024 7:15 AM HOSTING ENGINEER Closed fracture of right tibia and fibula, initial encounter BASIC METABOLIC PANEL (CALCIUM TOTAL) AM Draw 09/22/2024 7:15 AM HOSTING ENGINEER Closed fracture of right tibia and fibula, initial encounter XR KNEE RIGHT 2VW OR LESS Routine 09/21/2024 11:00 AM HOSTING ENGINEER Closed fracture of right tibia and fibula, initial encounter CBC W/O DIFFERENTIAL AM Draw 09/21/2024 5:54 AM HOSTING ENGINEER Closed fracture of right tibia and fibula, initial encounter BASIC METABOLIC PANEL (CALCIUM TOTAL) AM Draw 09/21/2024 5:54 AM HOSTING ENGINEER Closed fracture of right tibia and fibula, initial encounter CBC W/O DIFFERENTIAL AM Draw 09/20/2024 3:42 AM HOSTING ENGINEER Closed fracture of right tibia and fibula, initial encounter BASIC METABOLIC PANEL (CALCIUM TOTAL) AM Draw 09/20/2024 3:42 AM HOSTING ENGINEER Closed fracture of right tibia and fibula, initial encounter FL BARBY SURGERY STAT 09/19/2024 5:18 PM HOSTING ENGINEER Closed fracture of right tibia and fibula, initial encounter PERIPHERAL IV NOTE Routine 09/19/2024 4: 47 PM HOSTING ENGINEER ENDOTRACHEAL TUBE NOTE Routine 09/19/2024 4:46 PM HOSTING ENGINEER SD CLOSED RX TIBIA SHAFT FX 09/19/2024 4:16 PM HOSTING ENGINEER Closed fracture of right tibial plateau, initial encounter VITAMIN D 25-HYDROXY Routine 09/19/2024 3:12 AM HOSTING ENGINEER Closed fracture of right tibia and fibula, initial encounter Disorder of bone CBC W/O DIFFERENTIAL STAT 09/19/2024 3:12 AM HOSTING ENGINEER Closed fracture of right tibia and fibula, initial encounter COMPREHENSIVE METABOLIC PANEL STAT 09/19/2024 3:12 AM HOSTING ENGINEER PT EVAL AND TREAT ORTHO/TRAUMA Routine 09/19/2024 1:52 AM HOSTING ENGINEER OT EVAL AND TREAT ORTHO/TRAUMA Routine 09/19/2024 1:[address] TIBIA FIBULA RIGHT WO CONT STAT 09/19/2024 1:14 AM HOSTING ENGINEER Right leg pain CT KNEE RIGHT WO CONTRAST STAT 09/19/2024 1:14 AM HOSTING ENGINEER Right leg pain XR FOOT RIGHT 3VW OR MORE STAT 09/19/2024 12:45 AM HOSTING ENGINEER Right leg pain TYPE + SCREEN PANEL STAT 09/18/2024 1 1:24 PM HOSTING ENGINEER CBC W AUTO DIFFERENTIAL STAT 09/18/2024 11:24 PM HOSTING ENGINEER XR KNEE RIGHT 2VW OR LESS STAT 09/18/2024 11:08 PM HOSTING ENGINEER Right leg pain XR TIBIA FIBULA RIGHT 2VW STAT 09/18/2024 11:08 PM HOSTING ENGINEER Right leg pain ENDOSCOPY, COLON, SCREENING Routine 05/30/2024 9:42 AM CDT from Last 3 Months or Most Recently Relevant to Health Maintenance Results * XR Tibia Fibula Right 2Vw (11/26/2024 9:34 AM HOSTING ENGINEER) Only the most recent of5 resultswithin the time period is included. Anatomical Region Laterality Modality Lower Extremity Computed Radiogr aphy 11/26/2024 10:0 0 AM HOSTING ENGINEER Impressions 11/26/2024 10:29 AM HOSTING ENGINEER IMPRESSION: Redemonstration of a proximal tibial fracture fixation and distal tibiofibular syndesmotic fixation, unchanged in alignment. Interval appearance of multiple radiopaque findings within the lateral aspect of the distal thigh and medial aspect of the proximal leg soft tissue, likely antibiotic beads. Report dictated by Luciano Woods MD, (Stock Mover). I, Yefri Groves MD have personally reviewed and interpreted this examination/study. > Interpreting Provider: Yefri Groves MD on 11/26/2024 10:29 AM Narrative 11/26/2024 10:29 AM HOSTING ENGINEER PROCEDURE: XR TIBIA FIBULA RIGHT 2VW, DATE/TIME OF EXAM: 11/26/2024 9:34 AM, LOCATION [facility] INDICATION: S82.121A: Closed fracture of lateral [...] DATE/TIME OF EXAM: 59:34 AM, LOCATION [facility] INDICATION: S82.121A: Closed fracture of lateral [...] beads. Report dictated by Luciano Woods MD, (Stock Mover). I, Yefri Groves MD have personally reviewed and interpreted this examination/study. > Interpreting Provider: Yefri Groves MD on 11/26/2024 10:29 AM Daryn North MD DIAGNOSTIC IMAGING O RDERABLES * (ABNORMAL) COMPREHENSIVE METABOLIC PANEL (11/26/2024 8:49 AM HOSTING ENGINEER) Only the most recent of3 resultswithin the time period is included. BUN 23 7 - 26 mg/dL 11/26/2024 12:07 PM [facility] Creatinine 0.88 0.56 - 0.96 mg/dL 11/26/2024 12:07 PM [facility] Sodium 143 136 - 145 mmol/L 11/26/2024 12:07 PM [facility] Potassium 3.9 3.5 - 4.5 mmol/L 11/26/2024 12:07 PM [facility] Chloride 115(H) 98 - 107 mmol/L 11/26/2024 12:07 PM [facility] CO2 18(L) 22 - 29 mmol/L 11/26/2024 12:07 PM [facility] Glucose 83 70 - 99 mg/dL 11/26/2024 12:07 PM [facility] Calcium 9.1 8.4 - 10.2 mg/dL 11/26/2024 12:07 PM [facility] Protein Total 6.6 6.0 - 8.3 g/dL 11/26/2024 12:07 PM [facility] Albumin 2.9(L) 3.4 - 5.0 g/dL 11/26/2024 12:07 PM [facility] Bilirubin Total 0.3 0.2 - 1.2 mg/dL 11/26/2024 12:07 PM [facility] Alkaline Phosphatase 200(H) 40 - 150 U/L 11/26/2024 12:07 PM [facility] ALT 25 5 - 55 U/L 11/26/2024 12:07 PM [facility] AST 21 5 - 34 U/L 11/26/2024 12:07 PM [facility] Anion Gap 10 6 - 16 11/26/2024 12:07 PM [facility] BUN/Creatinine Ratio 26(H) 7 - 23 11/26/2024 12:07 PM [facility] Osmolality Calculated 299(H) 275 - 295 mOsm/kg 11/26/2024 12:07 PM [facility] Albumin/Globulin Ratio 0.8(L) 1.1 - 2.3 11/26/2024 12:07 PM [facility] eGFR by CKD-EPI 72(L) >=90 mL/min/1.7 3 m2 11/26/2024 12:07 PM [facility] Blood BLOOD SPECIMEN / Unknown Lab Venipuncture / Unknown 11/26/2024 8:49 AM HOSTING ENGINEER 11/26/2024 11:42 AM HOSTING ENGINEER Nikhil Godinez III, MD LAB - CHEMISTRY O RDERABLES Performing Organization Address City/[facility]/ZIP Co de Phone Number [address] [address], [facility] [phone] * GLUCOSE - POINT OF CARE (11/20/2024 1:30 PM HOSTING ENGINEER) Only the most recent of23 resultswithin the time period is included. Glucose WB/POC 95 70 - 99 mg/dL 11/20/2024 4:55 PM [facility] Specimen Type Cap Fingerstick 2024 4:55 PM [facility] Blood BLOOD SPECIMEN / Unknown 11/20/2024 1:30 PM HOSTING ENGINEER 11/20/2024 4:55 PM HOSTING ENGINEER Daryn North MD LAB - POINT OF CARE ORDERABLES Performing Organization Address City/[facility]/ZIP Co de Phone Number [address] [place] [address], [facility] [phone] * (ABNORMAL) BASIC METABOLIC PANEL (CALCIUM TOTAL) (11/20/2024 12:49 AM HOSTING ENGINEER) Only the most recent of13 resultswithin the time period is included. BUN 26 7 - 26 mg/dL 11/20/2024 1:59 AM [facility] Creatinine 0.98(H) 0.56 - 0.96 mg/dL 11/20/2024 1:59 AM [facility] Sodium 143 136 - 145 mmol/L 11/20/2024 1:59 AM [facility] Potassium 3.8 3.5 - 4.5 mmol/L 11/20/2024 1:59 AM [facility] Chloride 113(H) 98 - 107 mmol/L 11/20/2024 1:59 AM [facility] CO2 22 22 - 29 mmol/L 11/20/2024 1:59 AM [facility] Glucose 95 70 - 99 mg/dL 11/20/2024 1:59 AM [facility] Calcium 8.9 8.4 - 10.2 mg/dL 11/20/2024 1:59 AM [facility] Anion Gap 8 6 - 16 11/20/2024 1:59 AM [facility] BUN/Creatinine Ratio 27(H) 7 - 23 11/20/2024 1:59 AM [facility] Osmolality Calculated 301(H) 275 - 295 mOsm/kg 11/20/2024 1:59 AM [facility] eGFR by CKD-EPI 64(L) >=90 mL/min/1.7 3 m2 11/20/2024 1:59 AM [facility] Blood BLOOD SPECIMEN / Unknown Lab Venipuncture / Unknown 11/20/2024 12:49 AM HOSTING ENGINEER 11/20/2024 1:28 AM [facility] Daryn North MD LAB - CHEMISTRY KONG JENSEN [facility] Organization Address City/State/ZIP Co de Phone Number [facility] [address] [place] [address], [facility] [phone] * HEPATITIS C AB SCREEN RFLX NAAT QUANT (11/20/2024 12:48 AM HOSTING ENGINEER) Hepatitis C Antibody Non-react juju Non-reac tive 11/20/2024 2:21 AM HOSTING ENGINEER [facility] Comment: Hepatitis C Antibody [...] Lab Venipuncture / Unknown 11/20/2024 12:48 AM HOSTING ENGINEER 11/20/2024 1:18 AM HOSTING ENGINEER Cathie Reyes MD LAB - CHEMISTRY KONG JENSEN Performing Organization Address City/[facility]/ZIP Co de Phone Number [address] [address], [facility] [phone] * HIV-1 HIV-2 ANTIBODY + HIV P24 AG PANEL (11/20/2024 12:48 AM HOSTING ENGINEER) Pathologist [facility] HIV Antigen/Antibod y 1 & 2 Non-reacti ve Non-react juju 11/20/2024 2:21 AM HOSTING ENGINEER [facility] Comment:No Laboratory eviden ce of HIV infection. Blood BLOOD SPECIMEN / Unknown Lab Venipuncture / Unknown 11/20/2024 12:48 AM HOSTING ENGINEER 11/20/2024 1:18 AM HOSTING ENGINEER Cathie Reyes MD LAB - CHEMISTRY KONG JENSEN Performing Organization Address City/[facility]/ZIP Co de Phone Number [address] [address], [place] [phone] * (ABNORMAL) CBC W/O DIFFERENTIAL (11/20/2024 12:48 AM HOSTING ENGINEER) Only the most recent of14 resultswithin the time period is included. WBC 7.7 4.0 - 10.7 x10E9/L 11/20/2024 1:35 AM [facility] RBC Count 2.88(L) 3.90 - 5.20 x10E12/L 11/20/2024 1:35 AM [facility] Hemoglobin 8.0(L) 11.9 - 15.8 g/dL 11/20/2024 1:35 AM [facility] Hematocrit 24.5(L) 34.8 - 46.1 % 11/20/2024 1:35 AM [facility] MCV 85.1 80.0 - 98.0 fL 11/20/2024 1:35 AM [facility] MCH 27.8 26.7 - 33.6 pg 11/20/2024 1:35 AM [facility] MCHC 32.7 31.7 - 36.3 g/dL 11/20/2024 1:35 AM [facility] RDW-CV 15.9(H) 11.3 - 14.8 % 11/20/2024 1:35 AM [facility] Platelet Count 269 150 - 420 x10E9/L 11/20/2024 1:35 AM [facility] MPV 11.4 7.8 - 11.4 fL 11/20/2024 1:35 AM [facility] NRBC 0.3(H) <=0.0 /100 WBC 11/20/2024 1:35 AM [facility] Blood BLOOD SPECIMEN / Unknown Lab Venipuncture / Unknown 11/20/2024 12:48 AM HOSTING ENGINEER 11/20/2024 1:18 AM HOSTING ENGINEER Daryn North MD LAB - HEMATOLOGY ORD ERABLES [facility] [address] [place] [phone], [facility] [phone] * HEPATITIS SCREEN ACUTE (11/20/2024 12:48 AM HOSTING ENGINEER) Hepatitis A Virus Antibody IgM Non-react juju Non-reac tive 11/20/2024 2:21 AM [facility] Hepatitis B Virus Surface Antigen Non-react juju Non-reac tive 11/20/2024 2:21 AM [facility] Hepatitis B Core Virus Antibody IgM Non-react juju Non-reac tive 11/20/2024 2:21 AM [facility] Hepatitis C Antibody Non-react juju Non-reac tive 11/20/2024 2:21 AM [facility] Comment:Hepatitis C Antibody [...] Lab Venipuncture / Unknown 11/20/2024 12:48 AM HOSTING ENGINEER 11/20/2024 1:18 AM HOSTING ENGINEER Cathie Reyes MD LAB - CHEMISTRY KONG JENSEN Performing Organization Address City/[facility]/ZIP Co de Phone Number [address] [address], [facility] [phone] * (ABNORMAL) HEMOGLOBIN (11/19/2024 3:37 PM HOSTING ENGINEER) [facility] Hemoglobin 9.3(L) 11.9 - 15.8 g/dL 11/19/2024 4:07 PM [facility] Blood BLOOD SPECIMEN / Unknown Lab Venipuncture / Unknown 11/19/2024 3:37 PM HOSTING ENGINEER 11/19/2024 3:44 PM HOSTING ENGINEER Missy Melgar PA-C LAB - HEMATO LOGY ORDERABLES [address] [address], [facility] [phone] * PREPARE (CROSSMATCH) RBC UNIT(S), 1 Units (11/19/2024 9:14 AM HOSTING ENGINEER) Unit Description AS1 LR PRBC IRR [facility] Unit ABO O [facility] Unit Rh NEG [facility] Product Number R04 [facility] Unit Donor # [id number] [facility] Unit Status transfused [facility] Product Code [id number] [facility] Blood Type Barcode 9500 [facility] Expiration Date [id number] [facility] Blood Bank BLOOD SPECIMEN / Unknown 11/19/2024 6:33 AM HOSTING ENGINEER Daryn North MD LAB - BLOOD BANK ORD ERABLES Performing Organization Address City/[facility]/ZIP Co de Phone Number [facility] [address] [place] [address], [facility] [phone] * TYPE + SCREEN PANEL (11/19/2024 6:24 AM HOSTING ENGINEER) Only the most recent of4 resultswithin the time period is included. Antibody Screen NEG 7:[address] [facility] ABO Rh O POS 11/19/2024 7:[address] [facility] Blood Bank BLOOD SPECIMEN / Unknown Venipuncture / Unknown 11/19/2024 6:24 AM HOSTING ENGINEER 11/19/2024 6:33 AM HOSTING ENGINEER Daryn North MD LAB - BLOOD BANK ORD ERABLES Performing Organization Address City/[facility]/ZIP Co de Phone Number [facility] [address] [place] [address], [place] [phone] * (ABNORMAL) HEPATIC FUNCTION PANEL (11/19/2024 12:15 AM HOSTING ENGINEER) Protein Total 5.2(L) 6.0 - 8.3 g/dL 025 1:[address] [facility] Albumin 2.1(L) 3.4 - 5.0 g/dL 11/19/2024 1:[address] [facility] Bilirubin Total 0.2 0.2 - 1.2 mg/dL 02/2025 1:[address] [facility] Bilirubin Conjugated 0.1 0.1 - 0.5 mg/dL 11/19/2024 1:22 AM [facility] Bilirubin Unconjugated 0.1 Unconjugated Bilirubin is a calculated value: Reference ranges have not been established. mg/dL 11/19/2024 1:22 AM [facility] Alkaline Phosphatase 279(H) 40 - 150 U/L 11/19/2024 1:22 AM [facility] ALT 79(H) 5 - 55 U/L 11/19/2024 1:22 AM [facility] AST 71(H) 5 - 34 U/L 11/19/2024 1:22 AM [facility] Albumin/Globulin Ratio 0.7(L) 1.1 - 2.3 11/19/2024 1:22 AM [facility] Blood BLOOD SPECIMEN / Unknown Lab Venipuncture / Unknown 11/19/2024 12:15 AM HOSTING ENGINEER 11/19/2024 12:50 AM HOSTING ENGINEER Daryn North MD LAB - CHEMISTRY KONG JENSEN Performing Organization Address [facility]/ZIP Co de Phone Number [facility] [address] [place] [address] [phone] * EKG 12-LEAD (11/18/2024 11:30 AM HOSTING ENGINEER) Pathologist [facility] Ventricular Rate 79 BPM [facility] Atrial Rate 79 BPM [facility] P-R Interval 150 ms [facility] QRS Duration ms 100 ms [facility] Q-T Interval ms 406 ms [facility] QTC Calculation (Bezet) 465 ms [facility] Calculated P [place] 26 degrees [facility] Calculated R [place] 9 degrees [facility] Calculated T [place] 26 degrees [facility] Interpretation EKG NORMAL SINUS RHYTHM NORMAL ECG NO PREVIOUS ECGS AVAILABLE Confirmed by FRANC RODRIGUEZ MD ([id number]) on 11/22/2024 11:50:41 PM [facility] 11/18/2024 11:3 0 AM HOSTING ENGINEER 11/22/2024 11:50 PM HOSTING ENGINEER Daryn North MD ECG ORDERABLES Performing Organization Address [facility]/ZIP Co de Phone Number [facility] * VAS Bilateral Venous Duplex Le (11/17/2024 12:30 PM HOSTING ENGINEER) Anatomical Region Laterality Modality Lower Extremity Ultrasound 11/17/2024 12:1 3 PM HOSTING ENGINEER Narrative Procedure Note Segundo Clement MD - 11/17/2024 Daryn North MD VASCULAR LAB ORDERAB LES * (ABNORMAL) CULTURE WOUND+GRAM STAIN (11/17/2024 8:38 AM HOSTING ENGINEER) Only the most recent of5 resultswithin the time period is included. Culture Light Enterobacter cloacae complex(A) JERILYN 11/19/2024 1:56 PM HOSTING ENGINEER [facility] MICROBIOLOGY Gram Stain Heavy Red blood cells 11/19/2024 1:56 PM HOSTING ENGINEER [facility]CRO[facility]OLOG[facility] Gram Stain Rare Polymorphonuclear cells 11/19/2024 1:56 PM HOSTING ENGINEER [facility]CRO[facility]OLOG[facility] Gram Stain No organisms seen 025 1:56 PM HOSTING ENGINEER [facility] MICROBIOLOGY Microbiology ENTIRE KNEE REGION / Unknown Collection / Unknown 11/17/2024 8:38 AM HOSTING ENGINEER 11/17/2024 8:46 AM HOSTING ENGINEER Narrative [facility] MICROBIOLOG[facility] - 11/19/2024 1:56 PM HOSTING ENGINEER Enterobacter cloacae, Citrobacter freundii, Klebsiella (formerly Enterobacter) [...] North MD LAB - MICROBIOLOGY O MECCA Performing Organization Address City/[facility] Co de Phone Number [facility] MICROBIOLOGY [address] [place] [address], [facility] [phone] * CULTURE ANAEROBE (11/17/2024 8:38 AM HOSTING ENGINEER) Only the most recent of5 resultswithin the time period is included. Culture No anaerobic organisms isolated JERILYN 11/22/2024 1:20 PM HOSTING ENGINEER [facility] MICROBIOLOGY Microbiology ENTIRE KNEE REGION / Unknown Collection / Unknown 11/17/2024 8:38 AM HOSTING ENGINEER 11/17/2024 8:46 AM HOSTING ENGINEER Daryn North MD LAB - MICROBIOLOGY O MECCA Performing Organization Address [facility] de Phone Number [facility] MICROBIOLOGY [address] [place] [address], [facility] [phone] * ETT LINE PERFORMABLE (11/17/2024 7:55 AM HOSTING ENGINEER) Narrative Sandro Corona DO - 11/17/2024 7:55 AM HOSTING ENGINEER Sandro Corona DO 11/17/2024 7:56 AM Endotracheal Tube Placement: Patient Location: OR. Intubation Event Date/Time: 11/17/2024 7:45 AM Procedure: intubation ([id number]) Procedure Section: Sedation: under general anesthesia. Indications [...] TO MICROSCOPIC NO CULTURE (11/16/2024 1:08 PM HOSTING ENGINEER) Color UA Straw Straw, Yellow 11/16/2024 1:29 PM [facility] Clarity UA Clear Clear 11/16/2024 1:29 PM [facility] Specific [place] UA 1.008 1.005 - 1.030 11/16/2024 1:29 PM [facility] pH UA 5.0 5.0 - 8.0 pH 11/16/2024 1:29 PM [facility] Protein UA Negative Negative 11/16/2024 1:29 PM [facility] Glucose UA Negative Negative 11/16/2024 1:29 PM [facility] Ketone UA Negative Negative 11/16/2024 1:29 PM [facility] Bilirubin UA Negative Negative 11/16/2024 1:29 PM [facility] Blood UA Negative Negative 11/16/2024 1:29 PM [facility] Nitrite UA Negative Negative 11/16/2024 1:29 PM [facility] Leukocyte Esterase Negative Negative 11/16/2024 1:29 PM [facility] Urobilinogen UA Negative Negative mg/dL 11/16/2024 1:29 PM [facility] RBC UA 0-2 None Seen, 0-2, 3-5 /HPF 11/16/2024 1:29 PM [facility] WBC UA 0-5 None Seen, 0-5 /HPF 11/16/2024 1:29 PM [facility] Squamous Epithelial Cells UA 0-2 None Seen, 0-2, 3-5 /HPF 11/16/2024 1:29 PM [facility] Urine URINE SPECIMEN OBTAINED BY CLEAN CATCH PROCEDURE / Unknown Collection / Unknown 11/16/2024 1:08 PM HOSTING ENGINEER 11/16/2024 1:22 PM HOSTING ENGINEER [facility] - 11/16/2024 1:29 PM HOSTING ENGINEER Neftali Read MD LAB - URINALYS IS ORDERABLES Performing Organization Address [facility]/ZIP Co de Phone Number [address] [address], [place] [phone] * PROTEIN URINE RANDOM QUANTITATIVE (11/16/2024 1:08 PM HOSTING ENGINEER) Protein Urine <7 Not Established mg/dL 11/16/2024 1:43 PM HOSTING ENGINEER [facility] Urine URINE SPECIMEN OBTAINED BY CLEAN CATCH PROCEDURE / Unknown Collection / Unknown 11/16/2024 1:08 PM HOSTING ENGINEER 11/16/2024 1:22 PM HOSTING ENGINEER Neftali Read MD LAB - URINE CH EMISTRY ORDERABLES Performing Organization Address [facility] Co de Phone Number [address] [address], [place] [phone] * SODIUM URINE RANDOM (11/16/2024 1:08 PM HOSTING ENGINEER) Sodium Urine 35 Not Established mmol/L 11/16/2024 1:43 PM HOSTING ENGINEER [facility] Urine URINE SPECIMEN OBTAINED BY CLEAN CATCH PROCEDURE / Unknown Collection / Unknown 11/16/2024 1:08 PM HOSTING ENGINEER 11/16/2024 1:22 PM HOSTING ENGINEER Neftali Read MD LAB - URINE CH EMISTRY ORDERABLES Performing Organization Address [facility] Co de Phone Number [address] [address], [place] [phone] * UREA NITROGEN URINE RANDOM (11/16/2024 1:08 PM HOSTING ENGINEER) Urea Nitrogen Random Urine 295 Not Established mg/dL 11/16/2024 1:43 PM HOSTING ENGINEER [facility] Urine URINE SPECIMEN OBTAINED BY CLEAN CATCH PROCEDURE / Unknown Collection / Unknown 11/16/2024 1:08 PM HOSTING ENGINEER 11/16/2024 1:22 PM HOSTING ENGINEER Neftali Read MD LAB - URINE CH EMISTRY ORDERABLES Performing Organization Address City/[facility]/ZIP Co de Phone Number [address] [address], [facility] [phone] * CREATININE URINE RANDOM (11/16/2024 1:08 PM HOSTING ENGINEER) Creatinine Urine 44.87 Not Established mg/dL 11/16/2024 1:43 PM HOSTING ENGINEER [facility] Urine URINE SPECIMEN OBTAINED BY CLEAN CATCH PROCEDURE / Unknown Collection / Unknown 11/16/2024 1:08 PM HOSTING ENGINEER 11/16/2024 1:22 PM HOSTING ENGINEER Neftali Read MD LAB - URINE CH EMISTRY ORDERABLES Performing Organization Address [facility] Co de Phone Number [address] [address], [facility] [phone] * (ABNORMAL) VITAMIN D 25-HYDROXY (11/15/2024 12:56 AM HOSTING ENGINEER) Only the most recent of2 resultswithin the time period is included. Vitamin D, 25 Hydroxy 25.9(L) 30.0 - 80.0 ng/mL 11/15/2024 3:11 AM HOSTING ENGINEER [facility] Comment: The recommendations for 25-Hydroxy Vitamin [...] Lab Venipuncture / Unknown 11/15/2024 12:56 AM HOSTING ENGINEER 11/15/2024 2:11 AM HOSTING ENGINEER Sol Leal PA-C LAB - CHEMISTRY ORDERABLES Performing Organization Address [facility] Co de Phone Number [address] [address], [facility] [phone] * FOLATE (11/15/2024 12:56 AM HOSTING ENGINEER) Folate 10.0 7.0 - 31.4 ng/mL 11/15/2024 3:11 AM [facility] Blood BLOOD SPECIMEN / Unknown Lab Venipuncture / Unknown 11/15/2024 12:56 AM HOSTING ENGINEER 11/15/2024 2:11 AM HOSTING ENGINEER Sol Deterding PA-C LAB - CHEMISTRY ORDERABLES [facility] [address] [place] [id number], [facility] [phone] * VITAMIN B12 (11/15/2024 12:56 AM HOSTING ENGINEER) Pathologist [facility] Vitamin B12 583 213 - 816 pg/mL 11/15/2024 3:11 AM [facility] Blood BLOOD SPECIMEN / Unknown Lab Venipuncture / Unknown 11/15/2024 12:56 AM HOSTING ENGINEER 11/15/2024 2:11 AM HOSTING ENGINEER Sol Deterding PA-C LAB - CHEMISTRY ORDERABLES [address] [address], [facility] [phone] * (ABNORMAL) IRON + TRANSFERRIN PANEL (11/15/2024 12:56 AM HOSTING ENGINEER) Iron 19(L) 40 - 150 ug/dL 11/15/2024 3:01 AM [facility] Transferrin 151(L) 174 - 382 mg/dL 11/15/2024 3:01 AM [facility] Transferrin Saturation % 10(L) 16 - 50 % 11/15/2024 3:01 AM [facility] TIBC Calculated 189(L) 240 - 450 ug/dL 11/15/2024 3:01 AM [facility] Blood BLOOD SPECIMEN / Unknown Lab Venipuncture / Unknown 11/15/2024 12:56 AM HOSTING ENGINEER 11/15/2024 2:07 AM HOSTING ENGINEER Sol Leal PA-C LAB - CHEMISTRY ORDERABLES [address] [address], [place] [phone] * (ABNORMAL) FERRITIN (11/15/2024 12:56 AM HOSTING ENGINEER) Ferritin 668(H) 13 - 204 ng/mL 11/15/2024 3:19 AM [facility] Blood BLOOD SPECIMEN / Unknown Lab Venipuncture / Unknown 11/15/2024 12:56 AM HOSTING ENGINEER 11/15/2024 2:07 AM HOSTING ENGINEER Sol Leal PA-C LAB - CHEMISTRY ORDERABLES Performing Organization Address [facility]/ZIP Co de Phone Number [address] [address], [place] [phone] * HEMOGLOBIN A1C (11/14/2024 4:18 PM HOSTING ENGINEER) Hemoglobin A1c 5.0 <=5.6 % 11/14/2024 5:30 PM [facility] Estimated Average Glucose 97 mg/dL 11/14/2024 5:30 PM [facility] Comment: HbA1c Interpretation: Normal : < 5.7% Pre-diabetes: 5.7-6.4% Diabetes: Equal to or greater than 6.5% Test results diagnostic of diabetes should be repeated for confirmation. Treatment target values recommended by ADA and other clinical organizations should be used to evaluate metabolic control in patients. Reference: [place] [employer], Standards of Care in Diabetes -2020 In patients 70 years and older consider HbA1c target range of 7.0-7.5% (Reference: Samy Cunningham, et al. JAMDA. 2012) The Sebia assay for the measurement of HbA1c is a National Glycohemoglobin Standardization Program (NGSP) certified method. Blood BLOOD SPECIMEN / Unknown Lab Venipuncture / Unknown 11/14/2024 4:18 PM HOSTING ENGINEER 11/14/2024 4:33 PM HOSTING ENGINEER Daryn North MD LAB - CHEMISTRY KONG JENSEN [facility] [address] [place] [address], [facility] [phone] * ETT LINE PERFORMABLE (11/14/2024 7:57 AM HOSTING ENGINEER) Narrative Mauro Miguel Anes Asst - 11/14/2024 7:57 AM HOSTING ENGINEER Mauro Miguel Anes Asst 11/14/2024 7:57 AM Endotracheal Tube Placement: Patient Location: OR. Intubation Event Date/Time: 11/14/2024 7:33 AM Procedure: intubation (63039) Procedure Section: Sedation: IV sedation. Indications for [...] CBC W AUTO DIFFERENTIAL (11/14/2024 6:47 AM HOSTING ENGINEER) Only the most recent of2 resultswithin the time period is included. WBC 7.3 4.0 - 10.7 x10E9/L 11/14/2024 7:[address] [facility] RBC Count 3.30(L) 3.90 - 5.20 x10E12/L 11/14/2024 7:45 AM HOSTING ENGINEER [facility] Hemoglobin 8.9(L) 11.9 - 15.8 g/dL 11/14/2024 7:[address] [facility] Hematocrit 27.8(L) 34.8 - 46.1 % 11/14/2024 7:45 AM [facility] MCV 84.2 80.0 - 98.0 fL 11/14/2024 7:45 AM [facility] MCH 27.0 26.7 - 33.6 pg 11/14/2024 7:45 AM [facility] MCHC 32.0 31.7 - 36.3 g/dL 11/14/2024 7:45 AM [facility] RDW-CV 14.9(H) 11.3 - 14.8 % 11/14/2024 7:45 AM [facility] Platelet Count 11/14/2024 7:45 AM [facility] Comment:Platelets clumped on slide but appears adequate. Recommend repeat with a sodium citrate blue top tube. MPV 11/14/2024 7:45 AM [facility] Comment:Unable to report Neutrophil % 73.6 41.0 - 74.0 % 11/14/2024 7:45 AM [facility] Lymphocyte % 16.6(L) 17.0 - 47.0 % 11/14/2024 7:45 AM [facility] Monocyte % 8.4 3.0 - 11.0 % 11/14/2024 7:45 AM [facility] Eosinophil % 0.8 0.0 - 7.0 % 11/14/2024 7:45 AM [facility] Basophil % 0.3 0.0 - 1.6 % 11/14/2024 7:45 AM [facility] Immature Granulocytes % 0.3 0.0 - 1.0 % 11/14/2024 7:45 AM [facility] Neutrophil Absolute 5.34 1.60 - 7.50 x10E9/L 11/14/2024 7:45 AM [facility] Lymphocyte Absolute 1.20 1.00 - 4.40 x10E9/L 11/14/2024 7:45 AM [facility] Monocyte Absolute 0.61 0.15 - 1.00 x10E9/L 11/14/2024 7:45 AM [facility] Eosinophil Absolute 0.06 0.00 - 0.60 x10E9/L 11/14/2024 7:45 AM [facility] Basophil Absolute 0.02 0.00 - 0.13 x10E9/L 11/14/2024 7:45 AM HOSTING ENGINEER [facility] Blood BLOOD SPECIMEN / Unknown Venipuncture / Unknown 11/14/2024 6:47 AM HOSTING ENGINEER 11/14/2024 6:54 AM HOSTING ENGINEER Flaco Rebollar MD LAB - HEMATOLOGY ORD ERABLES [facility] [address] [place] [address], [facility] [phone] * XR Wrist Left 3Vw or More (11/12/2024 9:24 AM HOSTING ENGINEER) Anatomical Region Laterality Modality Wrist / Hand Radiographic Christa ging 11/12/2024 9:34 AM HOSTING ENGINEER Impressions 11/12/2024 9:36 AM HOSTING ENGINEER IMPRESSION: Mildly displaced distal radial fracture. > Interpreting Provider: Yefri Groves MD on 11/12/2024 9:36 AM Narrative 11/12/2024 9:36 AM HOSTING ENGINEER PROCEDURE: XR WRIST LEFT 3VW OR MORE [...] * [place] [facility] (10/10/2024 11:01 AM HOSTING ENGINEER) Only the most recent of2 resultswithin the time period is included. Narrative [facility] - 10/10/2024 11:02 AM HOSTING ENGINEER Fluoroscopy was used for this exam in the OR. Please see the Operative report. Daryn North MD FLUOROSCOPY ORDERABL ES [facility] * IV PLACEMENT PERFORMABLE (10/10/2024 8:22 AM HOSTING ENGINEER) Narrative Karol Dunn APRN-CRNA - 10/10/2024 8:22 AM HOSTING ENGINEER Karol Dunn APRN-CRNA 10/10/2024 8:23 AM Peripheral IV Line Placement: Patient Location: OR Procedure: IV start ([id number]) Procedure Section: Skin Prep: alcohol. Orientation: left Location: forearm Catheter Gauge: 18 Number of Attempts: 1. Procedure Tolerance: performed while patient under general anesthesia. Staff Section Anesthesia Provider: Karol Dunn APRN-CRNA, Performed the procedure Joey Oneal MD GENERAL ANESTHESIA O RDERABLES * ETT LINE PERFORMABLE (10/10/2024 8:22 AM HOSTING ENGINEER) Narrative Karol Dunn APRN-CRNA - 10/10/2024 8:22 AM HOSTING ENGINEER Karol Dunn APRN-CRNA 10/10/2024 8:22 AM Endotracheal Tube Placement: Patient Location: OR. Intubation Event Date/Time: 10/10/2024 7:43 AM Procedure: intubation ([id number]) Procedure Section: Sedation: under general anesthesia. Indications [...] AM. Staff Section Anesthesia Provider: Karol Dunn APRN-CLINICAL DIRECTOR, Performed the procedure Joey Oneal MD GENERAL ANESTHESIA O RDERABLES * XR Knee Right 2Vw or Less (09/21/2024 11:00 AM HOSTING ENGINEER) Only the most recent of2 resultswithin the time period is included. Anatomical Region Laterality Modality Lower Extremity Digital Radiogra phy 09/21/2024 7:17 PM HOSTING ENGINEER Impressions 09/21/2024 7:18 PM HOSTING ENGINEER IMPRESSION: Comminuted fracture of the proximal tibia with interval placement of traction pin in the distal femoral diaphysis. > Interpreting Provider: Natalio Nam on 09/21/2024 7:18 PM Narrative 09/21/2024 7:18 PM HOSTING ENGINEER PROCEDURE: XR KNEE RIGHT 2VW OR LESS [...] * IV PLACEMENT PERFORMABLE (09/19/2024 4:47 PM HOSTING ENGINEER) Karol Cat APRN-CRNA - 09/19/2024 4:47 PM HOSTING ENGINEER Karol Dunn APRN-CRNA 09/19/2024 4:47 PM Peripheral IV Line Placement: Patient Location: OR Insertion Time: 09/19/2024 4:39 PM Procedure: IV start ([id number]) Procedure Section: Skin Prep: alcohol. Orientation: left Location: hand Catheter Gauge: 20 Number of Attempts: 1. Procedure Tolerance: performed while patient under general anesthesia. Staff Section Anesthesia Provider: Karol Dunn APRN-CRNA, Performed the procedure Chelsey Minaya MD GENERAL ANESTHESIA O MECCA * ETT LINE PERFORMABLE (09/19/2024 4:46 PM HOSTING ENGINEER) Karol Cat APRN-CRNA - 09/19/2024 4:46 PM HOSTING ENGINEER Karol Dunn APRN-CRNA 09/19/2024 4:47 PM Endotracheal Tube Placement: Patient Location: OR. Intubation Event Date/Time: 09/19/2024 4:23 PM Procedure: intubation ([id number]) Procedure Section: Sedation: under general anesthesia. Indications [...] PM. Staff Section Anesthesia Provider: Karol Dunn, DIGITAL X RAY SERVICE ENGINEER-CLINICAL DIRECTOR, Performed the procedure Chelsey Minaya MD GENERAL ANESTHESIA O RDERABLES * CT Tibia Fibula Right Wo Cont (09/19/2024 1:14 AM HOSTING ENGINEER) Anatomical Region Laterality Modality Lower Extremity Computed Tomogra phy 09/19/2024 1:28 AM HOSTING ENGINEER Impressions 09/19/2024 1:47 AM HOSTING ENGINEER IMPRESSION: 1.Acute comminuted and moderately displaced fracture of the proximal tibia with intra-articular extension involving the medial and lateral tibial plateaus. 2.Soft tissue swelling about the knee and proximal lower leg with small volume hemarthrosis. Report dictated by Valentín Zheng MD (residential caregiver). I, Alejandro Hung MD have personally reviewed and interpreted this examination/study. > Interpreting Provider: Alejandro Hung MD on 09/19/2024 1:47 AM Narrative 09/19/2024 1:47 AM HOSTING ENGINEER PROCEDURE: CT KNEE RIGHT WO CONTRAST, CT TIBIA FIBULA RIGHT WO CONT, DATE/TIME OF EXAM: 09/19/2024 1:15 AM, LOCATION [facility] INDICATION: M79.604: Right leg pain ADDITIONAL CLINICAL INFORMATION: Ordering Provider Reason For Exam: eval fracture (accession [id number]), fracture (accession [id number]) COMPARISON: Right knee and right tibia-fibula radiographs [...] OF EXAM: 09/19/2024 1:15 AM, LOCATION [facility] INDICATION: M79.604: Right leg pain ADDITIONAL CLINICAL INFORMATION: Ordering Provider Reason For Exam: eval fracture (accession [id number]), fracture (accession [id number]) COMPARISON: Right knee and right tibia-fibula radiographs [...] Report dictated by Valentín Zheng MD (residential caregiver). Alejandro Garcia MD have personally reviewed and interpreted this examination/study. > Interpreting Provider: Alejandro Hung MD on 09/19/2024 1:47 AM Adeola Carreon MD CT ORDERABLES * CT Knee Right Wo Contrast (09/19/2024 1:14 AM HOSTING ENGINEER) Anatomical Region Laterality Modality Lower Extremity Computed Tomogra phy 09/19/2024 1:28 AM HOSTING ENGINEER Impressions 09/19/2024 1:47 AM HOSTING ENGINEER IMPRESSION: 1.Acute comminuted and moderately displaced fracture of the proximal tibia with intra-articular extension involving the medial and lateral tibial plateaus. 2.Soft tissue swelling about the knee and proximal lower leg with small volume hemarthrosis. Report dictated by Valentín Zheng MD (residential caregiver). Alejandro Garcia MD have personally reviewed and interpreted this examination/study. > Interpreting Provider: Alejandro Hung MD on 09/19/2024 1:47 AM Narrative 09/19/2024 1:47 AM HOSTING ENGINEER PROCEDURE: CT KNEE RIGHT WO CONTRAST, CT TIBIA FIBULA RIGHT WO CONT, DATE/TIME OF EXAM: 09/19/2024 1:15 AM, LOCATION [facility] INDICATION: M79.604: Right leg pain ADDITIONAL CLINICAL INFORMATION: Ordering Provider Reason For Exam: eval fracture (accession [id number]), fracture (accession [id number]) COMPARISON: Right knee and right tibia-fibula radiographs [...] OF EXAM: 09/19/2024 1:15 AM, LOCATION [facility] INDICATION: M79.604: Right leg pain ADDITIONAL CLINICAL INFORMATION: Ordering Provider Reason For Exam: eval fracture (accession [id number]), fracture (accession [id number]) COMPARISON: Right knee and right tibia-fibula radiographs [...] Report dictated by Valentín Zheng MD (residential caregiver). I, Alejandro Hung MD have personally reviewed and interpreted this examination/study. > Interpreting Provider: Alejandro Hung MD on 09/19/2024 1:47 AM Adeola A Velma MD CT ORDERABLES * XR Foot Right 3Vw or More (09/19/2024 12:45 AM HOSTING ENGINEER) Anatomical Region Laterality Modality Ankle / Foot Digital Radiogra phy 09/19/2024 1:25 AM HOSTING ENGINEER Narrative 09/19/2024 9:28 AM HOSTING ENGINEER PROCEDURE: XR FOOT RIGHT 3VW OR MORE, DATE/TIME OF EXAM: 09/19/2024 12:45 AM, LOCATION [facility] INDICATION: M79.604: Right leg pain ADDITIONAL [...] DATE/TIME OF EXAM: 2:45 AM, LOCATION [facility] INDICATION: M79.604: Right leg pain ADDITIONAL [...] the patient. Procedure Code(s): --- Professional --- 24427, Colonoscopy, flexible; with removal of tumor(s), polyp(s), or other lesion(s) by snare technique 03456, 59, Colonoscopy, flexible; with biopsy, single or multiple Diagnosis Code(s): --- Professional --- Z12.11, Encounter for screening for malignant neoplasm of colon D12.0, Benign neoplasm of cecum CPT copyright 2021 [place] [employer]. All rights reserved. The codes documented in this report are preliminary and upon powder cutting operator review may be revised to meet current compliance requirements. Balwinder Goncalves MD 05/30/2024 10:32:28 AM This report has been signed electronically. Note Initiated On: 05/30/2024 9:42 AM Number of Addenda: [address] [address] [facility] 05/30/2024 9:42 AM CDT Balwinder Goncalves MD GI PROCEDURE ORDERAB LES [facility] from Last 3 Months or Most Recently [...] 12:27 PM 03/16/2021 2:18 PM Care Teams Dramatic Coach Relationship Specialty Start Date End Date Geovanni Rodriguez DO [address] [address] PCP - General Internal Medicine 09/19/24
--- OUTSIDE RECORDS SUMMARY | 2024-11-27 13:30 | XMS_ITS | Encounter Summary ---
Author Organization [facility] Address [address] [facility] [place] [address] Care Team Providers Care Brewer Helper Name Role Phone Michael, Geovanni Nadja DO Primary Care Provider [phone] Encounter Details Date Type Department Care Team (Latest Contact Info) Description 11/26/2024 Travel Social History Tobacco Use Types Packs/Day Years [...] Recorded Patient Health Questionnaire-2 Score 1 11/26/2024 [facility] [place] of Occupat ional Health - Occupational Stress [...] the past 12 m [facility], were you homeless or living in [...] st Contact Info) Description 12/02/2024 1:[address]TER Office Visit [facility] - Rheumatology [address] [facility] [place] [address] Meryl Cuenca MD [address] [place] [address] 2L [place] [address] 12/03/2024 10:[address]TER Office Visit [facility] - Orthopedics [address] [place] [address], [place] [phone] Daryn North MD [facility] DIV [place] [address] 12/25/2024 10:00 AM CDT Office Visit [facility] - Infectious Disease [address] [place] [address], [place] [phone] Missy Vogel PA-C [address] [place] [address] 01/15/2025 10:00 AM CDT Office Visit [facility] - GI [address] [place] [address], [place] [phone] documented as of this encounter Goals Goal Patient Goal Type Associated Problems Recent Progress Patient-Stated? Author Mobility General On track( 025 10:[address] CUTTER) Ayaka Siegel, RN Note: Expected end date: 10/14/21 The goal is to maintain or improve your mobility at the optimum level for you. Interventions: documented as of this encounter Visit Diagnoses Not on filedocumented in this encounter Care Teams Brewer Helper Relationship Specialty Start Date End Date Geovanni Rodriguez DO [address] [place] [address] PCP - General Internal Medicine 09/19/24 documented as of this encounter
[2024-11-27] MEDS: LIDOCAINE 1% LOCAL INJ 2 ML AMPUL 5 ML INFILTRATE (15:00)
--- OUTSIDE RECORDS SUMMARY | 2024-11-27 15:03 | XMS_ITS | Clinical Summary ---
Author Organization Unknown Care Team Providers Care Marketing Budget Analyst Name Role Phone ALONZOKIRA Unavailable Unavailable DARLENE PHYSICAL THERAPIST, SADIQ Unavailable Unavailable KAYKAY CLOCK AND WATCH HANDS DIPPER, CHERYL Unavail able Unavailable [facility] REGISTERED NURSE TRANSPORT RN, PEDRO Meena vailable Unavailable NICKERSON OCCUPATIONAL THERAPIST, ALEXANDER Unavailable Unavailable Payers Payer Name Policy Type Policy Number Effective Date Expira tion Date MEDICARE [place] - EPISODIC [id number] Problems Condition Name Condition Details Condition Category [...] OF NICOTINE DEPENDENCE Active 10-15 00:00: 00 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 SPECIALIST 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 (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) USE OF ASPIRIN Active 10-15 00:00: [...] 2023-10 00:00: 00 10-22 23:59 :00 No [id number] PAIN 2 tablet EVERY 6 HOURS 2 tablet EVERY 6 HOURS (route: oral) Med Classific ation: Analgesic , Anti-infl ammatory or Antipyret ic amlodipine 5 mg tablet 2023-10 00:00: 00 Yes [id number] HTN 1 tablet ONCE DAILY 1 tablet ONCE DAILY (route: oral) Med Classific ation: Cardiovas cular Therapy Agents aspirin 325 mg tablet 2023-10 00:00: 00 10-22 23:59 :00 No [id number] PREVENT BLOOD CLOTS 1 tablet TWICE DAILY 1 tablet TWICE DAILY (route: oral) Med Classific ation: Analgesic , Anti-infl ammatory or Antipyret ic atorvastati n 20 mg tablet 2023-10 00:00: 00 Yes [id number] HLD 1 tablet ONCE DAILY 1 tablet ONCE DAILY (route: oral) Med Classific ation: Cardiovas cular Therapy Agents cyclobenzap rine 5 mg tablet 2023-10 00:00: 00 11-20 23:59 :00 No [id number] MUSCLE SPASMS 1 tablet 3 TIMES DAILY 1 tablet 3 TIMES DAILY (route: oral) Med Classific ation: Locomotor System docusate sodium 100 mg capsule 2023-10 00:00: 00 11-20 23:59 :00 No [id number] CONSTIPATIO N 1 capsule TWICE DAILY 1 capsule TWICE DAILY (route: oral) Med Classific ation: Gastroint estinal Therapy Agents famotidine 40 mg tablet 2023-10 00:00: 00 Yes [id number] ACID REFLUX 1 tablet ONCE DAILY 1 tablet ONCE DAILY (route: oral) Med Classific ation: Gastroint estinal Therapy Agents hydrochloro thiazide 25 mg tablet 2023-10 00:00: 00 11-20 23:59 :00 No [id number] DIURESIS 1 tablet ONCE DAILY 1 tablet ONCE DAILY (route: oral) Med Classific ation: Cardiovas cular Therapy Agents losartan 100 mg tablet 2023-10 00:00: 00 11-20 23:59 :00 No [id number] HTN 1 tablet ONCE DAILY 1 tablet ONCE DAILY (route: oral) Med Classific ation: Cardiovas cular Therapy Agents oxycodone 5 mg tablet 2023-10 00:00: 00 10-22 23:59 :00 No [id number] PAIN 1 tablet EVERY 6 HOURS 1 tablet EVERY 6 HOURS (route: oral) Med Classific ation: Analgesic , Anti-infl ammatory or Antipyret ic Senna Lax 8.6 mg tablet 2023-10 00:00: 00 Yes [id number] CONSTIPATIO N 1 tablet ONCE DAILY 1 tablet ONCE DAILY (route: oral) Med Classific ation: Gastroint estinal Therapy Agents Vitamin D3 25 mcg (1,000 unit) capsule 2023-10 00:00: 00 Yes [id number] LOW VITAMIN D 1 capsule ONCE DAILY 1 capsule ONCE DAILY (route: oral) Med Classific ation: Electroly te Balance-N utritiona l Products aspirin 81 mg tablet,ana yed release 10-22 00:00: 00 Yes [id number] PREVENT BLOOD CLOTS 1 tablet TWICE DAILY 1 tablet TWICE DAILY (route: oral) Med Classific ation: Hematolog ical Agents clindamycin HCl 300 mg capsule 10-22 00:00: 00 11-06 23:59 :00 No [id number] PREVENT WOUND INFECTION 1 capsule 4 TIMES DAILY 1 capsule 4 TIMES DAILY (route: oral) Med Classific ation: Anti-Infe ctive Agents oxycodone-a cetaminophe n 5 mg-325 mg tablet 10-22 00:00: 00 11-20 23:59 :00 No [id number] RIGHT KNEE PAIN 1 tablet EVERY 6 HOURS 1 tablet EVERY 6 HOURS (route: oral) Med Classific ation: Analgesic , Anti-infl ammatory or Antipyret ic cefepime 2 gram solution for injection 11-20 00:00: 00 Yes [id number] RLE WOUND INFECTION 2 g EVERY 8 HOURS 2 g EVERY 8 HOURS (route: injection) Alternate Route: IV PUSH. Med Classific ation: Anti-Infe ctive Agents Heparin Lock Flush (Porcine) (PF) 100 unit/mL intravenous syringe 11-20 00:00: 00 Yes [id number] IF LINE BECOMES SLUGGISH 3-5 mL ONCE DAILY 3-5 mL ONCE DAILY (route: intravenou s) Alternate Route: IV PUSH. Med Classific ation: Hematolog ical Agents Normal Saline Flush 0.9 % injection syringe 11-20 00:00: 00 Yes [id number] KEEP LINE PATENT 20 mL EVERY 8 HOURS 20 mL EVERY 8 HOURS (route: injection) Alternate Route: IV PUSH. Med Classific ation: Electroly te Balance-N utritiona l Products oxycodone 5 mg tablet - 00:00: 00 Yes [id number] RIGHT LEG PAIN 1 tablet EVERY 4 HOURS 1 tablet EVERY 4 HOURS (route: oral) Med Classific ation: Analgesic , Anti-infl ammatory or Antipyret ic gabapentin 300 mg capsule 1-24 00:00: 00 Yes [id number] RLE NERVE PAIN 1 capsule 3 TIMES [...] UP APPT. ] Future Scheduled Test [facility] TIFYING PHYSICIAN, ASSOCIATED PHYSICIAN, NPP OR [...] WILL BE ESTABLISHED THAT MEETS ALL PATIENT'S SENIOR CARE NEEDS AND COUNTER SIGNED BY PHYSICIAN. Goal [...] Date: 2024 by PEDRO SHIELDS REGISTERED NURSE TRANSPORT RN]:</paragraph><paragraph>PTNT BEING SEEN BY SN FOR SURGICAL SITE [...] DR. FUENTES (PCP), 12/25 [facility]; 01/15 [facility] GI. PTNT STABLE AT DEPARTURE FROM HOME. PTNT/CG VERBALIZED UNDERSTANDING OF ALL EDUCATION PROVIDED. PTNT/CG DENY ADDITIONAL QUESTIONS/CONCERNS AND VERBALIZE SATISFACTION WITH CARE AT END OF VISIT.</paragraph> <paragraph>[Visit Date: 2024 by PEDRO SHIELDS REGISTERED NURSE TRANSPORT RN]:</paragraph><paragraph>PTNT BEING SEEN BY SN FOR RIGHT TIBIA FX. ANNMARIE AFTER HOSPITAL STAY AT [facility] FROM 11/14-11/20. PTNT HAD 2 [...] End Date/Time Encounter Type Admission Type Attending [facility] Department Encounter ID Discharge Date Discharge Status Discharge Condition Discharge Reason Percent Goals Met 2024-10-15 00:00:00 2024-12-13 00:00:00 Outpatient PEDRO VIVAS [facility] [id number]
--- OUTSIDE RECORDS SUMMARY | 2024-11-27 15:03 | XMS_ITS | Encounter Summary ---
Author Organization [facility] Address [address] [place] [address] Care Team Providers Care Arc Welding Machine Operator Name Role Phone Bandar Smith MD Primary Care Provider [phone] Erika Lopes OT Unavailable Unavailable Celestino Parra MD Unavailable [phone] Fan Edwards Unavailable Unavailable Geovanni Rodriguez DO Primary Care Provider Encounter Details Date Type Department Care Team (Late st Contact Info) Description 01/21/2024 Orders Only [facility] [address] [place] [id number] Scanning, Provider Social History Tobacco Use [...] on file Legal 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 Gender Identity Not on file Sexual Orientation [...] on filedocumented in this encounter Care Teams Arc Welding Machine Operator Relationship Specialty Start Date End Date Bandar Smith MD [address] [place] [address] PCP - General Internal Medicine 05/20/18 07/07/24 Geovanni Rodriguez DO [address] [place] [address] PCP - General Internal Medicine 07/08/24 Erika Lopes, OT Occupational Therapist Occupational Therapy 06/10/18 Celestino Parra MD Surgeon Vascular Surgery 02/19/19 Fan Edwards Referring Physician Gastroenterology 02/19/19 documented as of this encounter
--- OUTSIDE RECORDS SUMMARY | 2024-11-27 15:03 | XMS_ITS | Referral Summary ---
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
--- OUTSIDE RECORDS SUMMARY | 2024-11-27 15:03 | XMS_ITS | Clinical Summary ---
Author Organization Unknown Care Team Providers Care Client Services Coordinator Name Role Phone ALONZOKIRA Unavailable Unavailable DARLENE PHYSICAL THERAPIST, SADIQ Unavailable Unavailable KAYKAY PULP DRIER FIRER, CHERYL Unavail able Unavailable [facility] REGISTERED NURSE BEHAVIORAL HEALTH CARE MANAGER, PEDRO Meena vailable Unavailable NICKERSON OCCUPATIONAL THERAPIST, ALEXANDER Unavailable Unavailable Payers Payer Name Policy Type Policy Number Effective Date Expira tion Date MEDICARE [place] - EPISODIC [id number] Problems Condition Name Condition Details Condition Category [...] OF NICOTINE DEPENDENCE Active 10-15 00:00: 00 REINFORCING [employer] (CURRENT) USE OF ASPIRIN Active 10-15 00:00: [...] 2023-10 00:00: 00 10-22 23:59 :00 No [id number] PAIN 2 tablet EVERY 6 HOURS 2 tablet EVERY 6 HOURS (route: oral) Med Classific ation: Analgesic , Anti-infl ammatory or Antipyret ic amlodipine 5 mg tablet 2023-10 00:00: 00 Yes [id number] HTN 1 tablet ONCE DAILY 1 tablet ONCE DAILY (route: oral) Med Classific ation: Cardiovas cular Therapy Agents aspirin 325 mg tablet 2023-10 00:00: 00 10-22 23:59 :00 No [id number] PREVENT BLOOD CLOTS 1 tablet TWICE DAILY 1 tablet TWICE DAILY (route: oral) Med Classific ation: Analgesic , Anti-infl ammatory or Antipyret ic atorvastati n 20 mg tablet 2023-10 00:00: 00 Yes [id number] HLD 1 tablet ONCE DAILY 1 tablet ONCE DAILY (route: oral) Med Classific ation: Cardiovas cular Therapy Agents cyclobenzap rine 5 mg tablet 2023-10 00:00: 00 11-20 23:59 :00 No [id number] MUSCLE SPASMS 1 tablet 3 TIMES DAILY 1 tablet 3 TIMES DAILY (route: oral) Med Classific ation: Locomotor System docusate sodium 100 mg capsule 2023-10 00:00: 00 11-20 23:59 :00 No [id number] CONSTIPATIO N 1 capsule TWICE DAILY 1 capsule TWICE DAILY (route: oral) Med Classific ation: Gastroint estinal Therapy Agents famotidine 40 mg tablet 2023-10 00:00: 00 Yes [id number] ACID REFLUX 1 tablet ONCE DAILY 1 tablet ONCE DAILY (route: oral) Med Classific ation: Gastroint estinal Therapy Agents hydrochloro thiazide 25 mg tablet 2023-10 00:00: 00 11-20 23:59 :00 No [id number] DIURESIS 1 tablet ONCE DAILY 1 tablet ONCE DAILY (route: oral) Med Classific ation: Cardiovas cular Therapy Agents losartan 100 mg tablet 2023-10 00:00: 00 11-20 23:59 :00 No [id number] HTN 1 tablet ONCE DAILY 1 tablet ONCE DAILY (route: oral) Med Classific ation: Cardiovas cular Therapy Agents oxycodone 5 mg tablet 2023-10 00:00: 00 10-22 23:59 :00 No [id number] PAIN 1 tablet EVERY 6 HOURS 1 tablet EVERY 6 HOURS (route: oral) Med Classific ation: Analgesic , Anti-infl ammatory or Antipyret ic Senna Lax 8.6 mg tablet 2023-10 00:00: 00 Yes [id number] CONSTIPATIO N 1 tablet ONCE DAILY 1 tablet ONCE DAILY (route: oral) Med Classific ation: Gastroint estinal Therapy Agents Vitamin D3 25 mcg (1,000 unit) capsule 2023-10 00:00: 00 Yes [id number] LOW VITAMIN D 1 capsule ONCE DAILY 1 capsule ONCE DAILY (route: oral) Med Classific ation: Electroly te Balance-N utritiona l Products aspirin 81 mg tablet,ana yed release 10-22 00:00: 00 Yes [id number] PREVENT BLOOD CLOTS 1 tablet TWICE DAILY 1 tablet TWICE DAILY (route: oral) Med Classific ation: Hematolog ical Agents clindamycin HCl 300 mg capsule 10-22 00:00: 00 11-06 23:59 :00 No [id number] PREVENT WOUND INFECTION 1 capsule 4 TIMES DAILY 1 capsule 4 TIMES DAILY (route: oral) Med Classific ation: Anti-Infe ctive Agents oxycodone-a cetaminophe n 5 mg-325 mg tablet 10-22 00:00: 00 11-20 23:59 :00 No [id number] RIGHT KNEE PAIN 1 tablet EVERY 6 HOURS 1 tablet EVERY 6 HOURS (route: oral) Med Classific ation: Analgesic , Anti-infl ammatory or Antipyret ic cefepime 2 gram solution for injection 11-20 00:00: 00 Yes [id number] RLE WOUND INFECTION 2 g EVERY 8 HOURS 2 g EVERY 8 HOURS (route: injection) Alternate Route: IV PUSH. Med Classific ation: Anti-Infe ctive Agents Heparin Lock Flush (Porcine) (PF) 100 unit/mL intravenous syringe 11-20 00:00: 00 Yes [id number] IF LINE BECOMES SLUGGISH 3-5 mL ONCE DAILY 3-5 mL ONCE DAILY (route: intravenou s) Alternate Route: IV PUSH. Med Classific ation: Hematolog ical Agents Normal Saline Flush 0.9 % injection syringe 11-20 00:00: 00 Yes [id number] KEEP LINE PATENT 20 mL EVERY 8 HOURS 20 mL EVERY 8 HOURS (route: injection) Alternate Route: IV PUSH. Med Classific ation: Electroly te Balance-N utritiona l Products oxycodone 5 mg tablet - 00:00: 00 Yes [id number] RIGHT LEG PAIN 1 tablet EVERY 4 HOURS 1 tablet EVERY 4 HOURS (route: oral) Med Classific ation: Analgesic , Anti-infl ammatory or Antipyret ic gabapentin 300 mg capsule 1-24 00:00: 00 Yes [id number] RLE NERVE PAIN 1 capsule 3 TIMES [...] UP APPT. ] Future Scheduled Test [facility] TIFYING PHYSICIAN, ASSOCIATED PHYSICIAN, NPP OR [...] Date: 2024 by PEDRO SHIELDS REGISTERED NURSE BEHAVIORAL HEALTH CARE MANAGER]:</paragraph><paragraph>PTNT BEING SEEN BY SN FOR SURGICAL SITE [...] DR. FUENTES (PCP), 12/25 [facility]; 01/15 [facility]. PTNT STABLE AT DEPARTURE FROM HOME. PTNT/CG VERBALIZED UNDERSTANDING OF ALL EDUCATION PROVIDED. PTNT/CG DENY ADDITIONAL QUESTIONS/CONCERNS AND VERBALIZE SATISFACTION WITH CARE AT END OF VISIT.</paragraph> <paragraph>[Visit Date: 2024 by PEDRO SHIELDS REGISTERED NURSE BEHAVIORAL HEALTH CARE MANAGER]:</paragraph><paragraph>PTNT BEING SEEN BY SN FOR RIGHT TIBIA FX. ANNMARIE AFTER HOSPITAL STAY AT [facility] FROM 11/14-11/20. PTNT HAD 2 ID TO [...] End Date/Time Encounter Type Admission Type Attending [facility] Department Encounter ID Discharge Date Discharge Status Discharge Condition Discharge Reason Percent Goals Met 2024-10-15 00:00:00 2024-12-13 00:00:00 Outpatient PEDRO VIVAS [facility] [id number]
--- OUTSIDE RECORDS SUMMARY | 2024-11-27 15:03 | XMS_ITS | Referral Summary ---
Author Organization [facility] Address [address] [place] [address] Care Team Providers Care Windows Systems Administrator Name Role Phone Geovanni Rodriguez Primary Care Provider [phone] Source Comments [facility],non-owned Affiliates and Associated Physician Practices is amultiple site organization consisting of ambulatory clinics and hospital sitesin [place], [place], [place] and [place]. This disclosure is being madepursuant to the Care Everywhere program and may not contain all information available regarding this patient. Last updated 18.[facility] Encounters Date Type Department Care Team Description 11/27/2024 Telephone [facility] - Allergy [address] [place] [address], [place] [address] Olga Maguire RN Follow-up 11/26/2024 9:24 AM NUCLEAR CONTROL OPERATOR - 11/26/2024 11:59 PM NUCLEAR CONTROL OPERATOR Hospital Encounter [facility] DIAGNOSTIC RAD CSM [address]L [address] [facility] [place] [address] Daryn North MD Discharge Disposition: Home or Self Care 11/26/2024 Orders Only [facility] - Orthopedics [address] [facility], [facility] [place] [address] Daryn North MD Closed fracture of lateral portion of right tibial plateau, initial encounter 11/26/2024 Travel 11/26/2024 8:00 AM NUCLEAR CONTROL OPERATOR Office Visit Transitional Care at [address] [phone] Nikhil Godinez III, MD Surgical site infection (Primary Dx); Elevated LFTs 11/26/2024 10:30 AM NUCLEAR CONTROL OPERATOR Office Visit [facility] - Orthopedics [address] [place] [phone] Daryn North MD Surgical site infection 11/25/2024 Telephone [facility] - Infectious Disease [address] [place] [phone] Missy Vogel PA-C Follow-up 11/25/2024 Telephone Transitional Care at [address] [phone] Candy Figueroa MA Reminder Call 11/21/2024 Telephone Transitional Care at [address] [phone] Nadia Love, gwot ia/ilo intelligence support 11/14/2024 5:27 AM NUCLEAR CONTROL OPERATOR - 11/20/2024 6:39 PM NUCLEAR CONTROL OPERATOR Hospital Encounter [facility] SHORT STAY UNIT [address] [place] [address] Daryn North MD Surgery General Discharge Disposition: Home Health Care [facility] 11/17/2024 7:05 AM NUCLEAR CONTROL OPERATOR - 11/17/2024 9:31 AM NUCLEAR CONTROL OPERATOR Surgery [facility] [address] [place] [address] Daryn North MD IRRIGATION/DEBRIDEM ENT RIGHT KNEE WOUND, ANTIBIOTIC BEAD PLACEMENT, INCISIONAL PREVENA PLACEMENT, WOUND CLOSURE 11/17/2024 7:26 AM NUCLEAR CONTROL OPERATOR Anesthesia Event [facility] [address] [place] [phone] Annie Carter MD Chase, Charles C, Anes Asst 11/14/2024 7:05 AM NUCLEAR CONTROL OPERATOR - 11/14/2024 8:50 AM NUCLEAR CONTROL OPERATOR Surgery [facility] [address] [place] [address] Daryn North MD Irrigation and debridement of right knee surgical site infection with wound vac placement 11/14/2024 7:23 AM NUCLEAR CONTROL OPERATOR Anesthesia Event [facility] [address] [place] [address] Kin Aden MD Keeven, Grace C, DENTAL LABORATORY WORKER-NATUROPATHIC DOCTOR 11/12/2024 9:17 AM NUCLEAR CONTROL OPERATOR - 11/12/2024 11:59 PM NUCLEAR CONTROL OPERATOR Hospital Encounter [facility] DIAGNOSTIC RAD CSM [address] [place] [address] Daryn North MD Discharge Disposition: Home or Self Care 11/12/2024 9:17 AM NUCLEAR CONTROL OPERATOR - 11/12/2024 11:59 PM NUCLEAR CONTROL OPERATOR Hospital Encounter [facility] DIAGNOSTIC RAD CSM [address] [place] [address] Daryn North MD Discharge Disposition: Home or Self Care 11/12/2024 Orders Only [facility] - Orthopedics [address] [place] [phone] Drayn North MD Closed fracture of lateral portion of right tibial plateau, initial encounter ; Closed fracture of left wrist, initial encounter 11/12/2024 Travel 11/12/2024 9:00 AM NUCLEAR CONTROL OPERATOR Office Visit [facility] - Orthopedics [address] [place] [phone] Daryn North MD Pate, Katherine M, PA-C Closed fracture of lateral portion of right tibial plateau, initial encounter (Primary Dx); Surgical site infection; Closed nondisplaced fracture of styloid process of left radius, initial encounter 10/27/2024 Travel 10/27/2024 12:30 PM NUCLEAR CONTROL OPERATOR [facility] [address] [place] [phone] Adeola Mendez MD Closed fracture of lateral portion of right tibial plateau, initial encounter (Primary Dx) 10/22/2024 11:17 AM NUCLEAR CONTROL OPERATOR - 10/22/2024 11:59 PM NUCLEAR CONTROL OPERATOR Hospital Encounter [facility] DIAGNOSTIC RAD CSM [address] [place] [address] Daryn North MD Discharge Disposition: Home or Self Care 10/22/2024 Travel 10/22/2024 Orders Only [facility] - Orthopedics [address] [place] [phone] Daryn North MD Closed fracture of lateral portion of right tibial plateau, initial encounter 10/22/2024 12:30 PM NUCLEAR CONTROL OPERATOR Office Visit [facility] - Orthopedics [address] [place] [phone] Daryn North MD Closed bicondylar fracture of right tibial plateau (Primary Dx) 10/16/2024 Transitional Care [facility] - Care Coordination [address] [place] [address] Liza Steinberg, gwot ia/ilo intelligence support 10/14/2024 Transitional Care [facility] - Care Coordination [address] [place] [address] Liza Steinberg, gwot ia/ilo intelligence support 10/10/2024 5:43 AM NUCLEAR CONTROL OPERATOR - 10/13/2024 3:43 PM NUCLEAR CONTROL OPERATOR Hospital Encounter [facility] 5S ACUTE [address] [place] [address] Daryn North MD Surgery General Discharge Disposition: Home Health Care [facility] 10/10/2024 7:15 AM NUCLEAR CONTROL OPERATOR - 10/10/2024 10:45 AM NUCLEAR CONTROL OPERATOR Surgery [facility] [address] [place] [address] Daryn North MD Open reduction internal fixation of right bicondylar tibial plateau fracture, repair of lateral meniscus right, removal of external fixator right 10/10/2024 7:27 AM NUCLEAR CONTROL OPERATOR Anesthesia Event [facility] [address] [place] [address] Joey Oneal MD Osterloh, Joan Frances, DENTAL LABORATORY WORKER-MARINE ELECTRICIAN HELPER 10/06/2024 Telephone [facility] - Orthopedics [address] [place] [phone] Adeola Mendez MD Pre-op Clearance 10/02/2024 Travel 09/29/2024 Travel 09/29/2024 9:15 AM NUCLEAR CONTROL OPERATOR Office Visit [facility] - Orthopedics [address] [place] [address] Adeola Mendez MD Adams, Karra N, DENTAL LABORATORY WORKER-NATUROPATHIC DOCTOR Closed fracture of lateral portion of right tibial plateau, initial encounter (Primary Dx) 09/25/2024 Transitional Care [facility] - Care Coordination [address] [place] [address] Fiordaliza Neville, gwot ia/ilo intelligence support 09/24/2024 Transitional Care [facility] - Care Coordination [address] [place] [address] Fiordaliza Neville RNgwot ia/ilo intelligence support 09/24/2024 Transitional Care [facility] - Care Coordination [address] [place] [address] Haydee Curtis, gwot ia/ilo intelligence support 09/18/2024 10:44 PM NUCLEAR CONTROL OPERATOR - 09/23/2024 9:47 PM NUCLEAR CONTROL OPERATOR Hospital Encounter [facility] 6N ACUTE [address] [place] [phone] Adeola Carreon MD Swan, Erin R, MD Orthopedics Discharge Disposition: Home Health Care [facility] 09/19/2024 4:12 PM NUCLEAR CONTROL OPERATOR Anesthesia Event [facility] [address] [place] [phone] Dorinda Stevens MD McDowell, Jacob A, Anes Asst 09/19/2024 3:50 PM NUCLEAR CONTROL OPERATOR - 09/19/2024 4:50 PM NUCLEAR CONTROL OPERATOR Surgery [facility] [address] [place] [phone] Marifer Saeed MD RIGHT TIBIA CLOSED REDUCTION [...] Recorded Patient Health Questionnaire-2 Score 1 11/26/2024 [facility] - [...] were you homeless or living in a fdc (including now)? No 11/15/2024 Sex and Gender Information Value Date Recorded Sex Assigned at Female 06/03/2023 3:57 PM CDT Gender Identity Female 06/03/2023 3:57 PM CDT Sexual Orientation Not on file Last Filed Vital Signs Vital Sign Reading Time Taken Comments Blood Pressure 138/73 11/26/2024 7:43 AM NUCLEAR CONTROL OPERATOR Pulse 70 11/26/2024 7:43 AM NUCLEAR CONTROL OPERATOR Temperature 36.7 C (98 F) 11/26/2024 7:43 AM NUCLEAR CONTROL OPERATOR Respiratory Rate 18 11/26/2024 7:43 AM NUCLEAR CONTROL OPERATOR Oxygen Saturation 97% 11/26/2024 7:43 AM NUCLEAR CONTROL OPERATOR Inhaled Oxygen Concentration 40% 10/10/2024 1 2:23 PM NUCLEAR CONTROL OPERATOR Weight 89.4 kg (197 lb) 11/26/2024 9:39 AM NUCLEAR CONTROL OPERATOR Height 167.6 cm (5' 6 ) 11/26/2024 9:39 AM NUCLEAR CONTROL OPERATOR Body Mass Index 31.8 11/26/2024 9:39 AM NUCLEAR CONTROL OPERATOR Functional Status Functional Status Response Date of [...] st Contact Info) Description 12/02/2024 1:40 PM NUCLEAR CONTROL OPERATOR Office Visit [facility] - Rheumatology [address] [place] [phone] Meryl Cuenca MD [address] [place] [address] [place] [address] 12/03/2024 10:15 AM NUCLEAR CONTROL OPERATOR Office Visit [facility] - Orthopedics [address] [place] [phone] Daryn North MD [address] [place] [address] DIV [place] [address] 12/25/2024 10:00 AM CDT Office Visit [facility] - Infectious Disease [address] [place] [phone] Missy Vogel PA-C [address] [place] [address] 01/15/2025 10:00 AM CDT Office Visit [facility] - GI [address] [facility], [place] [phone] Goals Goal Patient Goal Type Associated Problems Recent Progress Patient-Stated? Author Mobility General On track( 025 10:37 AM NUCLEAR CONTROL OPERATOR) Ayaka Siegel, RN Note: Expected end date: 10/14/21 The goal is to maintain or improve your mobility at the optimum level for you. Interventions: Medical Devices Implanted Type Area Member Of Technical Staff Device Identifier Shelf Expiration Date Model / Serial / Lot Screw 3.5mm 50mm 2.5mm Slf-Tap Sm Hex Implanted:Qty : 1 on 03/15/2021 by Sukumar Magaña, DO at [facility] Right: Tibia [employer] [id number] / / Screw 3.5mm 55mm 2.5mm Slf-Tap Sm Hex Implanted:Qty : 1 on 03/15/2021 by Sukumar Magaña DO at [facility] Right: [employer]ia [employer] [id number] / / Plate 2 Hl 2 Comp Colr 25mm 1/3 Tblr Implanted:Qty : 1 on 03/15/2021 by Sukumar Magaña, DO at [facility] Right: [employer]ia [employer] [id number] / / Sub Bngf 4.8mm Ostst Ca Slf Pelt Implanted:Qty : 1 on 03/15/2021 by Sukumar Magaña, DO at [facility] [employer] [id number] / / [id number] Screw 4.7mm 5.6mm 36mm 2.5mm Ft Va Lopro Implanted:Qty : 2 on 10/10/2024 by Daryn North MD at [facility] Right: Tibia [employer] 11/26/2033 [id number] / / [id number] Screw 4.7mm 5.6mm 28mm 2.5mm Ft Va Lopro Implanted:Qty : 1 on 10/10/2024 by Daryn North MD at [facility] Right: [employer] 03/12/2032 [id number] / / [id number] Screw 4.7mm 5.6mm 32mm 2.5mm Ft Va Lopro Implanted:Qty : 1 on 10/10/2024 by Daryn North MD at [facility] Right: [employer] [id number] 10/19/2030 [id number] / / [id number] Agent Hmst Thrmb Kt Surgiflo 2ml Implanted:Qty : 2 on 10/10/2024 by Daryn North MD at [facility] Right: Tibia [employer] [id number] / / Screw 3.5mm 26mm Slf-Tap Cortx Evos Strl Implanted:Qty : 1 on 10/10/2024 by Daryn North MD at [facility] Right: [employer] [id number] / / Screw 3.5mm 32mm Slf-Tap Cortx Evos Strl Implanted:Qty : 1 on 10/10/2024 by Daryn North MD at [facility] Right: [employer] [id number] / / Screw 3.5mm 34mm Slf-Tap Cortx Evos Strl Implanted:Qty : 1 on 10/10/2024 by Daryn North MD at [facility] Right: [employer] [id number] / / Screw 3.5mm 15mm Slf-Tap Lck Evos Strl Implanted:Qty : 1 on 10/10/2024 by Daryn North MD at [facility] Right: [employer] [id number] / / Plate 9 Hl Va Lck Fib Lt Dist 125mm Implanted:Qty : 1 on 10/10/2024 by Daryn North MD at [facility] Right: [employer] [id number] / / Screw 3.5mm 32mm Ft Slf-Tap Hex Lopro Implanted:Qty : 1 on 10/10/2024 by Daryn North MD at [facility] Right: [employer] [id number] / / Screw 3.5mm 60mm T15 Lck Slf-Tap Tip Tpr Implanted:Qty : 1 on 10/10/2024 by Daryn North MD at [facility] Right: [employer] [id number] / / Screw 3.5mm 65mm T15 Lck Slf-Tap Tip Tpr Implanted:Qty : 3 on 10/10/2024 by Daryn North MD at [facility] Right: [employer] [id number] / / Screw 3.5mm 70mm T15 Lck Slf-Tap Tip Tpr Implanted:Qty : 1 on 10/10/2024 by Daryn North MD at [facility] Right: [employer] [id number] / / Plate 9 Hl Lck Lopro Dist Blt Tip Tib Rt Implanted:Qty : 1 on 10/10/2024 by Daryn North MD at [facility] Right: [employer] [id number] / / Screw 3.5mm 75mm T15 Lck Slf-Tap Tip Tpr Implanted:Qty : 2 on 10/10/2024 by Daryn North MD at [facility] Right: [employer] [id number] / / Screw 3.5mm 40mm Ft Slf-Tap Hex Lopro Implanted:Qty : 1 on 10/10/2024 by Daryn North MD at [facility] Right: [employer] [id number] / / Screw 3.5mm 20mm T15 Slf-Tap Lck Tpr Implanted:Qty : 1 on 10/10/2024 by Daryn North MD at [facility] Right: [employer] [id number] / / Cmnt Bone Smpx Ptbr Fd Radopq Prebl Implanted:Qty : 1 on 11/17/2024 by Daryn North MD at [facility] Right: Knee [employer] 01/12/2026 [id number] / / [id number] Lorenzo Bone Void 10cc 20cc Ca Slf Stimulan Implanted:Qty : 1 on 11/17/2024 by Daryn North MD at [facility] Right: Knee [employer] 07/14/2027 620-010 / / [id number] Explanted Type Area Member Of Technical Staff Device Identifier Shelf Expiration Date Model / Serial / Lot Wire K 2mm 150mm 1 End Troc Pnt Ss Sm Explanted:Qty: 1 on 03/15/2021 by Sukumar Magaña DO at [facility] Right: [employer] [id number] / / Screw 3.5mm 60mm 2.5mm Slf-Tap Sm Hex Explanted:Qty: 1 on 03/15/2021 by Sukumar Magaña DO at [facility] Right: [employer] [id number] / / Cplng Extfix Hfmn 3 Nikhil To Nikhil Salomón Explanted:Qty: 4 on 09/19/2024 by Marifer Saeed MD at [facility] Right: [employer]ia [employer] 4922-1-010 / / Screw 3.5mm 38mm Slf-Tap Cortx Evos Strl Explanted:Qty: 1 on 10/10/2024 by Daryn North MD at [facility] Right: [employer] [id number] / / Screw 3.5mm 42mm Slf-Tap Cortx Evos Strl Explanted:Qty: 1 on 10/10/2024 by Daryn North MD at [facility] Right: [employer] [id number] / / Wire K 1.6mm 150mm Troc Pnt Ss Fx Strl Explanted:Qty: 1 on 10/10/2024 by Daryn North MD at [facility] Right: [employer] [id number] / / Plate 11 Hl Va Lck Lopro Fib Lt Dist Lat Explanted:Qty: 1 on 10/10/2024 by Daryn North MD at [facility] Right: [employer] [id number] / / Wire K 1.6mm 6in Hlf Bynt Pnt Ss Fx Explanted:Qty: 3 on 10/10/2024 by Daryn North MD at [facility] Right: [employer] [id number] / / Pin Hlf 180mm 5mm Apx Hfmn2 Canc Ss Implanted:Qty: 2 on 09/19/2024 by Marifer Saeed MD at [facility] Explanted:Qty: 2 on 10/10/2024 by Daryn North MD at [facility] Right: [employer]ia [employer] [id number] / / Pin Hlf 200mm 5mm Apx Hfmn2 Orth Ss Thrd Implanted:Qty: 2 on 09/19/2024 by Marifer Saeed MD at [facility] Explanted:Qty: 2 on 10/10/2024 by Daryn North MD at [facility] Right: Tibia [employer] 5018-6-200 / / Procedures Procedure Name Priority Date/Time Associated Diagnosis Comments XR TIBIA FIBULA RIGHT 2VW Routine 11/26/2024 9:34 AM NUCLEAR CONTROL OPERATOR Closed fracture of lateral portion of right tibial plateau, initial encounter COMPREHENSIVE METABOLIC PANEL Routine 11/26/2024 8:49 AM NUCLEAR CONTROL OPERATOR Elevated LFTs GLUCOSE - POINT OF CARE Routine 11/20/2024 1:30 PM NUCLEAR CONTROL OPERATOR GLUCOSE - POINT OF CARE Routine 11/20/2024 8:10 AM NUCLEAR CONTROL OPERATOR BASIC METABOLIC PANEL (CALCIUM TOTAL) AM Draw 11/20/2024 12:49 AM NUCLEAR CONTROL OPERATOR HEPATITIS C AB SCREEN RFLX NAAT QUANT Routine 11/20/2024 12:48 AM NUCLEAR CONTROL OPERATOR HIV-1 HIV-2 ANTIBODY + HIV P24 AG PANEL Routine 11/20/2024 12:48 AM NUCLEAR CONTROL OPERATOR HEPATITIS SCREEN ACUTE AM Draw 11/20/2024 12:48 AM NUCLEAR CONTROL OPERATOR CBC W/O DIFFERENTIAL AM Draw 11/20/2024 12:48 AM NUCLEAR CONTROL OPERATOR GLUCOSE - POINT OF CARE Routine 11/19/2024 9:06 PM NUCLEAR CONTROL OPERATOR GLUCOSE - POINT OF CARE Routine 11/19/2024 5:26 PM NUCLEAR CONTROL OPERATOR HEMOGLOBIN Timed 11/19/2024 3:37 PM NUCLEAR CONTROL OPERATOR GLUCOSE - POINT OF CARE Routine 11/19/2024 1:18 PM NUCLEAR CONTROL OPERATOR TRANSFUSE RED BLOOD CELL LEUKOREDUCED UNIT(S) Routine 11/19/2024 9:30 AM NUCLEAR CONTROL OPERATOR PREPARE RBC LEUKOREDUCED UNIT Routine 11/19/2024 9:14 AM NUCLEAR CONTROL OPERATOR GLUCOSE - POINT OF CARE Routine 11/19/2024 8:22 AM NUCLEAR CONTROL OPERATOR TYPE + SCREEN PANEL STAT 11/19/2024 6 :24 AM NUCLEAR CONTROL OPERATOR HEPATIC FUNCTION PANEL AM Draw 11/19/2024 12:15 AM NUCLEAR CONTROL OPERATOR CBC W/O DIFFERENTIAL AM Draw 11/19/2024 12:15 AM NUCLEAR CONTROL OPERATOR BASIC METABOLIC PANEL (CALCIUM TOTAL) AM Draw 11/19/2024 12:15 AM NUCLEAR CONTROL OPERATOR GLUCOSE - POINT OF CARE Routine 11/18/2024 7:54 PM NUCLEAR CONTROL OPERATOR GLUCOSE - POINT OF CARE Routine 11/18/2024 5:44 PM NUCLEAR CONTROL OPERATOR GLUCOSE - POINT OF CARE Routine 11/18/2024 12:35 PM NUCLEAR CONTROL OPERATOR EKG 12-LEAD Routine 11/18/2024 11:30 AM NUCLEAR CONTROL OPERATOR Closed fracture of right tibia and fibula, initial encounter GLUCOSE - POINT OF CARE Routine 11/18/2024 8:30 AM NUCLEAR CONTROL OPERATOR CBC W/O DIFFERENTIAL AM Draw 11/18/2024 12:20 AM NUCLEAR CONTROL OPERATOR BASIC METABOLIC PANEL (CALCIUM TOTAL) AM Draw 11/18/2024 12:20 AM NUCLEAR CONTROL OPERATOR GLUCOSE - POINT OF CARE Routine 11/17/2024 9:12 PM NUCLEAR CONTROL OPERATOR GLUCOSE - POINT OF CARE Routine 11/17/2024 5:19 PM NUCLEAR CONTROL OPERATOR VAS BILATERAL VENOUS DUPLEX LE Routine 11/17/2024 12:30 PM NUCLEAR CONTROL OPERATOR Closed fracture of right tibia and fibula, initial encounter GLUCOSE - POINT OF CARE Routine 11/17/2024 11:45 AM NUCLEAR CONTROL OPERATOR CULTURE ANAEROBE STAT 11/17/2024 8:38 AM NUCLEAR CONTROL OPERATOR CULTURE WOUND+GRAM STAIN STAT 11/17/2024 8:38 AM NUCLEAR CONTROL OPERATOR CULTURE ANAEROBE STAT 11/17/2024 8:36 AM NUCLEAR CONTROL OPERATOR CULTURE WOUND+GRAM STAIN STAT 11/17/2024 8:36 AM NUCLEAR CONTROL OPERATOR ENDOTRACHEAL TUBE NOTE Routine 11/17/2024 7:55 AM NUCLEAR CONTROL OPERATOR OH EXPLORE WOUND,EXTREMITY 11/17/2024 7:07 AM NUCLEAR CONTROL OPERATOR Injury of right knee, initial encounter CBC W/O DIFFERENTIAL AM Draw 11/17/2024 12:44 AM NUCLEAR CONTROL OPERATOR BASIC METABOLIC PANEL (CALCIUM TOTAL) AM Draw 11/17/2024 12:44 AM NUCLEAR CONTROL OPERATOR GLUCOSE - POINT OF CARE Routine 11/16/2024 7:59 PM NUCLEAR CONTROL OPERATOR GLUCOSE - POINT OF CARE Routine 11/16/2024 6:01 PM NUCLEAR CONTROL OPERATOR URINALYSIS REFLEX TO MICROSCOPIC NO CULTURE Routine 11/16/2024 1:08 PM NUCLEAR CONTROL OPERATOR PROTEIN URINE RANDOM QUANTITATIVE Routine 11/16/2024 1:08 PM NUCLEAR CONTROL OPERATOR UREA NITROGEN URINE RANDOM Routine 11/16/2024 1:08 PM NUCLEAR CONTROL OPERATOR CREATININE URINE RANDOM Routine 11/16/2024 1:08 PM NUCLEAR CONTROL OPERATOR SODIUM URINE RANDOM Routine 11/16/2024 1 :08 PM NUCLEAR CONTROL OPERATOR GLUCOSE - POINT OF CARE Routine 11/16/2024 11:33 AM NUCLEAR CONTROL OPERATOR GLUCOSE - POINT OF CARE Routine 11/16/2024 8:17 AM NUCLEAR CONTROL OPERATOR CBC W/O DIFFERENTIAL AM Draw 11/16/2024 12:21 AM NUCLEAR CONTROL OPERATOR BASIC METABOLIC PANEL (CALCIUM TOTAL) AM Draw 11/16/2024 12:21 AM NUCLEAR CONTROL OPERATOR GLUCOSE - POINT OF CARE Routine 11/15/2024 8:18 PM NUCLEAR CONTROL OPERATOR GLUCOSE - POINT OF CARE Routine 11/15/2024 6:00 PM NUCLEAR CONTROL OPERATOR GLUCOSE - POINT OF CARE Routine 11/15/2024 1:13 PM NUCLEAR CONTROL OPERATOR GLUCOSE - POINT OF CARE Routine 11/15/2024 9:10 AM NUCLEAR CONTROL OPERATOR VITAMIN D 25-HYDROXY AM Draw 11/15/2024 12:56 AM NUCLEAR CONTROL OPERATOR FERRITIN Routine 11/15/2024 12:56 AM NUCLEAR CONTROL OPERATOR IRON + TRANSFERRIN PANEL Routine 11/15/2024 12:56 AM NUCLEAR CONTROL OPERATOR VITAMIN B12 AM Draw 11/15/2024 12:56 AM NUCLEAR CONTROL OPERATOR FOLATE Routine 11/15/2024 12:56 AM NUCLEAR CONTROL OPERATOR CBC W/O DIFFERENTIAL AM Draw 11/15/2024 12:56 AM NUCLEAR CONTROL OPERATOR BASIC METABOLIC PANEL (CALCIUM TOTAL) AM Draw 11/15/2024 12:56 AM NUCLEAR CONTROL OPERATOR GLUCOSE - POINT OF CARE Routine 11/14/2024 10:25 PM NUCLEAR CONTROL OPERATOR GLUCOSE - POINT OF CARE Routine 11/14/2024 5:53 PM NUCLEAR CONTROL OPERATOR COMPREHENSIVE METABOLIC PANEL Routine 11/14/2024 4:18 PM NUCLEAR CONTROL OPERATOR HEMOGLOBIN A1C Routine 11/14/2024 4:18 PM NUCLEAR CONTROL OPERATOR PT EVAL AND TREAT ORTHO/TRAUMA Routine 11/14/2024 9:08 AM NUCLEAR CONTROL OPERATOR OT EVAL AND TREAT ORTHO/TRAUMA Routine 11/14/2024 9:08 AM NUCLEAR CONTROL OPERATOR CULTURE ANAEROBE STAT 11/14/2024 8:21 AM NUCLEAR CONTROL OPERATOR CULTURE WOUND+GRAM STAIN STAT 11/14/2024 8:21 AM NUCLEAR CONTROL OPERATOR CULTURE ANAEROBE STAT 11/14/2024 8:10 AM NUCLEAR CONTROL OPERATOR CULTURE WOUND+GRAM STAIN STAT 11/14/2024 8:10 AM NUCLEAR CONTROL OPERATOR CULTURE ANAEROBE STAT 11/14/2024 8:10 AM NUCLEAR CONTROL OPERATOR CULTURE WOUND+GRAM STAIN STAT 11/14/2024 8:10 AM NUCLEAR CONTROL OPERATOR ENDOTRACHEAL TUBE NOTE Routine 11/14/2024 7:57 AM NUCLEAR CONTROL OPERATOR OH RENE SUBQ TISSUE 20 SQ CM/< 11/14/2024 6:58 AM NUCLEAR CONTROL OPERATOR Surgical site infection Special Needs Supine C-ARM CBC W AUTO DIFFERENTIAL STAT 11/14/2024 6:47 AM NUCLEAR CONTROL OPERATOR Arthralgia of right ankle TYPE + SCREEN PANEL Routine 11/14/2024 6 :17 AM NUCLEAR CONTROL OPERATOR XR WRIST LEFT 3VW OR MORE Routine 11/12/2024 9:24 AM NUCLEAR CONTROL OPERATOR Closed fracture of left wrist, initial encounter XR TIBIA FIBULA RIGHT 2VW Routine 11/12/2024 9:22 AM NUCLEAR CONTROL OPERATOR Closed fracture of lateral portion of right tibial plateau, initial encounter XR TIBIA FIBULA RIGHT 2VW Routine 10/22/2024 11:26 AM NUCLEAR CONTROL OPERATOR Closed fracture of lateral portion of right tibial plateau, initial encounter CBC W/O DIFFERENTIAL AM Draw 10/13/2024 1:55 AM NUCLEAR CONTROL OPERATOR Closed fracture of right tibia and fibula, initial encounter BASIC METABOLIC PANEL (CALCIUM TOTAL) AM Draw 10/13/2024 1:55 AM NUCLEAR CONTROL OPERATOR Closed fracture of right tibia and fibula, initial encounter CBC W/O DIFFERENTIAL AM Draw 10/12/2024 1:03 PM NUCLEAR CONTROL OPERATOR Closed fracture of right tibia and fibula, initial encounter BASIC METABOLIC PANEL (CALCIUM TOTAL) AM Draw 10/12/2024 4:18 AM NUCLEAR CONTROL OPERATOR Closed fracture of right tibia and fibula, initial encounter CBC W/O DIFFERENTIAL AM Draw 10/11/2024 2:13 AM NUCLEAR CONTROL OPERATOR Closed fracture of right tibia and fibula, initial encounter BASIC METABOLIC PANEL (CALCIUM TOTAL) AM Draw 10/11/2024 2:13 AM NUCLEAR CONTROL OPERATOR Closed fracture of right tibia and fibula, initial encounter XR TIBIA FIBULA RIGHT 2VW STAT 10/10/2024 1:17 PM NUCLEAR CONTROL OPERATOR Closed fracture of right tibia and fibula, initial encounter [place] [facility]BY SURGERY STAT 10/10/2024 11:01 AM NUCLEAR CONTROL OPERATOR Closed fracture of right tibia and fibula, initial encounter PERIPHERAL IV NOTE Routine 10/10/2024 8: 22 AM NUCLEAR CONTROL OPERATOR ENDOTRACHEAL TUBE NOTE Routine 10/10/2024 8:22 AM NUCLEAR CONTROL OPERATOR OH OPEN RX BILAT TIB PLAT FX 10/10/2024 7:15 AM NUCLEAR CONTROL OPERATOR Closed fracture of lateral portion of right tibial plateau, initial encounter Special Needs Supine C-Arm TYPE + SCREEN PANEL Routine 10/10/2024 6 :24 AM NUCLEAR CONTROL OPERATOR CBC W/O DIFFERENTIAL AM Draw 09/23/2024 6:31 AM NUCLEAR CONTROL OPERATOR Closed fracture of right tibia and fibula, initial encounter BASIC METABOLIC PANEL (CALCIUM TOTAL) AM Draw 09/23/2024 6:31 AM NUCLEAR CONTROL OPERATOR Closed fracture of right tibia and fibula, initial encounter CBC W/O DIFFERENTIAL AM Draw 09/22/2024 7:15 AM NUCLEAR CONTROL OPERATOR Closed fracture of right tibia and fibula, initial encounter BASIC METABOLIC PANEL (CALCIUM TOTAL) AM Draw 09/22/2024 7:15 AM NUCLEAR CONTROL OPERATOR Closed fracture of right tibia and fibula, initial encounter XR KNEE RIGHT 2VW OR LESS Routine 09/21/2024 11:00 AM NUCLEAR CONTROL OPERATOR Closed fracture of right tibia and fibula, initial encounter CBC W/O DIFFERENTIAL AM Draw 09/21/2024 5:54 AM NUCLEAR CONTROL OPERATOR Closed fracture of right tibia and fibula, initial encounter BASIC METABOLIC PANEL (CALCIUM TOTAL) AM Draw 09/21/2024 5:54 AM NUCLEAR CONTROL OPERATOR Closed fracture of right tibia and fibula, initial encounter CBC W/O DIFFERENTIAL AM Draw 09/20/2024 3:42 AM NUCLEAR CONTROL OPERATOR Closed fracture of right tibia and fibula, initial encounter BASIC METABOLIC PANEL (CALCIUM TOTAL) AM Draw 09/20/2024 3:42 AM NUCLEAR CONTROL OPERATOR Closed fracture of right tibia and fibula, initial encounter [place] [facility] SURGERY STAT 09/19/2024 5:18 PM NUCLEAR CONTROL OPERATOR Closed fracture of right tibia and fibula, initial encounter PERIPHERAL IV NOTE Routine 09/19/2024 4: 47 PM NUCLEAR CONTROL OPERATOR ENDOTRACHEAL TUBE NOTE Routine 09/19/2024 4:46 PM NUCLEAR CONTROL OPERATOR OH CLOSED RX TIBIA SHAFT FX 09/19/2024 4:16 PM NUCLEAR CONTROL OPERATOR Closed fracture of right tibial plateau, initial encounter VITAMIN D 25-HYDROXY Routine 09/19/2024 3:12 AM NUCLEAR CONTROL OPERATOR Closed fracture of right tibia and fibula, initial encounter Disorder of bone CBC W/O DIFFERENTIAL STAT 09/19/2024 3:12 AM NUCLEAR CONTROL OPERATOR Closed fracture of right tibia and fibula, initial encounter COMPREHENSIVE METABOLIC PANEL STAT 09/19/2024 3:12 AM NUCLEAR CONTROL OPERATOR PT EVAL AND TREAT ORTHO/TRAUMA Routine 09/19/2024 1:52 AM NUCLEAR CONTROL OPERATOR OT EVAL AND TREAT ORTHO/TRAUMA Routine 09/19/2024 1:52 [address] NUCLEAR CONTROL OPERATOR CT TIBIA FIBULA RIGHT WO CONT STAT 09/19/2024 1:14 AM NUCLEAR CONTROL OPERATOR Right leg pain CT KNEE RIGHT WO CONTRAST STAT 09/19/2024 1:14 AM NUCLEAR CONTROL OPERATOR Right leg pain XR FOOT RIGHT 3VW OR MORE STAT 09/19/2024 12:45 AM NUCLEAR CONTROL OPERATOR Right leg pain TYPE + SCREEN PANEL STAT 09/18/2024 1 1:24 PM NUCLEAR CONTROL OPERATOR CBC W AUTO DIFFERENTIAL STAT 09/18/2024 11:24 PM NUCLEAR CONTROL OPERATOR XR KNEE RIGHT 2VW OR LESS STAT 09/18/2024 11:08 PM NUCLEAR CONTROL OPERATOR Right leg pain XR TIBIA FIBULA RIGHT 2VW STAT 09/18/2024 11:08 PM NUCLEAR CONTROL OPERATOR Right leg pain ENDOSCOPY, COLON, SCREENING Routine 05/30/2024 9:42 AM CDT from Last 3 Months or Most Recently Relevant to Health Maintenance Results * XR Tibia Fibula Right 2Vw (11/26/2024 9:34 AM NUCLEAR CONTROL OPERATOR) Only the most recent of5 resultswithin the time period is included. Anatomical Region Laterality Modality Lower Extremity Computed Radiogr aphy 11/26/2024 10:0 0 AM NUCLEAR CONTROL OPERATOR Impressions 11/26/2024 10:29 AM NUCLEAR CONTROL OPERATOR IMPRESSION: Redemonstration of a proximal tibial fracture fixation and distal tibiofibular syndesmotic fixation, unchanged in alignment. Interval appearance of multiple radiopaque findings within the lateral aspect of the distal thigh and medial aspect of the proximal leg soft tissue, likely antibiotic beads. Report dictated by Luciano Woods MD, ([employer]). I, Yefri Groves MD have personally reviewed and interpreted this examination/study. > Interpreting Provider: Yefri Groves MD on 11/26/2024 10:29 AM Narrative 11/26/2024 10:29 AM NUCLEAR CONTROL OPERATOR PROCEDURE: XR TIBIA FIBULA RIGHT 2VW, DATE/TIME OF EXAM: 11/26/2024 9:34 AM, LOCATION [facility] INDICATION: S82.121A: Closed fracture of lateral [...] DATE/TIME OF EXAM: 59:34 AM, LOCATION [facility] INDICATION: S82.121A: Closed fracture of lateral [...] beads. Report dictated by Luciano Woods MD, ([employer]). I, Yefri Groves MD have personally reviewed and interpreted this examination/study. > Interpreting Provider: Yefri Groves MD on 11/26/2024 10:29 AM Daryn North MD DIAGNOSTIC IMAGING O RDERABLES * (ABNORMAL) COMPREHENSIVE METABOLIC PANEL (11/26/2024 8:49 AM NUCLEAR CONTROL OPERATOR) Only the most recent of3 resultswithin the time period is included. BUN 23 7 - 26 mg/dL 11/26/2024 12:07 PM [facility] Creatinine 0.88 0.56 - 0.96 mg/dL 11/26/2024 12:07 PM [facility] Sodium 143 136 - 145 mmol/L 11/26/2024 12:07 PM [facility] Potassium 3.9 3.5 - 4.5 mmol/L 11/26/2024 12:07 PM [facility] Chloride 115(H) 98 - 107 mmol/L 11/26/2024 12:07 PM [facility] CO2 18(L) 22 - 29 mmol/L 11/26/2024 12:07 PM [facility] Glucose 83 70 - 99 mg/dL 11/26/2024 12:07 PM [facility] Calcium 9.1 8.4 - 10.2 mg/dL 11/26/2024 12:07 PM [facility] Protein Total 6.6 6.0 - 8.3 g/dL 11/26/2024 12:07 PM [facility] Albumin 2.9(L) 3.4 - 5.0 g/dL 11/26/2024 12:07 PM [facility] Bilirubin Total 0.3 0.2 - 1.2 mg/dL 11/26/2024 12:07 PM [facility] Alkaline Phosphatase 200(H) 40 - 150 U/L 11/26/2024 12:07 PM [facility] ALT 25 5 - 55 U/L 11/26/2024 12:07 PM [facility] AST 21 5 - 34 U/L 11/26/2024 12:07 PM [facility] Anion Gap 10 6 - 16 11/26/2024 12:07 PM [facility] BUN/Creatinine Ratio 26(H) 7 - 23 11/26/2024 12:07 PM [facility] Osmolality Calculated 299(H) 275 - 295 mOsm/kg 11/26/2024 12:07 PM [facility] Albumin/Globulin Ratio 0.8(L) 1.1 - 2.3 11/26/2024 12:07 PM [facility] eGFR by CKD-EPI 72(L) >=90 mL/min/1.7 3 m2 11/26/2024 12:07 PM [facility] Blood BLOOD SPECIMEN / Unknown Lab Venipuncture / Unknown 11/26/2024 8:49 AM NUCLEAR CONTROL OPERATOR 11/26/2024 11:42 AM NUCLEAR CONTROL OPERATOR Nikhil Godinez III, MD LAB - CHEMISTRY O RDERABLES [address] [address], [facility] [phone] * GLUCOSE - POINT OF CARE (11/20/2024 1:30 PM NUCLEAR CONTROL OPERATOR) Only the most recent of23 resultswithin the time period is included. Glucose WB/POC 95 70 - 99 mg/dL 11/20/2024 4:55 PM [facility] Specimen Type Cap Fingerstick 2024 4:55 PM [facility] Blood BLOOD SPECIMEN / Unknown 11/20/2024 1:30 PM NUCLEAR CONTROL OPERATOR 11/20/2024 4:55 PM NUCLEAR CONTROL OPERATOR Daryn North MD LAB - POINT OF CARE ORDERABLES [facility] [address] [place] [address], [facility] [phone] * (ABNORMAL) BASIC METABOLIC PANEL (CALCIUM TOTAL) (11/20/2024 12:49 AM NUCLEAR CONTROL OPERATOR) Only the most recent of13 resultswithin the time period is included. BUN 26 7 - 26 mg/dL 11/20/2024 1:59 AM [facility] Creatinine 0.98(H) 0.56 - 0.96 mg/dL 11/20/2024 1:59 AM [facility] Sodium 143 136 - 145 mmol/L 11/20/2024 1:59 AM [facility] Potassium 3.8 3.5 - 4.5 mmol/L 11/20/2024 1:59 AM [facility] Chloride 113(H) 98 - 107 mmol/L 11/20/2024 1:59 AM [facility] CO2 22 22 - 29 mmol/L 11/20/2024 1:59 AM [facility] Glucose 95 70 - 99 mg/dL 11/20/2024 1:59 AM [facility] Calcium 8.9 8.4 - 10.2 mg/dL 11/20/2024 1:59 AM [facility] Anion Gap 8 6 - 16 11/20/2024 1:59 AM [facility] BUN/Creatinine Ratio 27(H) 7 - 23 11/20/2024 1:59 AM [facility] Osmolality Calculated 301(H) 275 - 295 mOsm/kg 11/20/2024 1:59 AM [facility] eGFR by CKD-EPI 64(L) >=90 mL/min/1.7 3 m2 11/20/2024 1:59 AM [facility] Blood BLOOD SPECIMEN / Unknown Lab Venipuncture / Unknown 11/20/2024 12:49 AM NUCLEAR CONTROL OPERATOR 11/20/2024 1:28 AM NUCLEAR CONTROL OPERATOR Daryn North MD LAB - CHEMISTRY KONG JENSEN [address] [address], [place] [phone] * HEPATITIS C AB SCREEN RFLX NAAT QUANT (11/20/2024 12:48 AM NUCLEAR CONTROL OPERATOR) Hepatitis C Antibody Non-react juju Non-reac tive 11/20/2024 2:21 AM NUCLEAR CONTROL OPERATOR [facility] Comment: Hepatitis C Antibody screen indicates [...] Lab Venipuncture / Unknown 11/20/2024 12:48 AM NUCLEAR CONTROL OPERATOR 11/20/2024 1:18 AM NUCLEAR CONTROL OPERATOR Cathie Reyes MD LAB - CHEMISTRY KONG JENSEN Performing Organization Address [facility]/ZIP Co de Phone Number [address] [address], [place] [phone] * HIV-1 HIV-2 ANTIBODY + HIV P24 AG PANEL (11/20/2024 12:48 AM NUCLEAR CONTROL OPERATOR) Pathologist [facility] HIV Antigen/Antibod y 1 & 2 Non-reacti ve Non-react juju 11/20/2024 2:21 AM NUCLEAR CONTROL OPERATOR [facility] Comment:No Laboratory eviden ce of HIV infection. Blood BLOOD SPECIMEN / Unknown Lab Venipuncture / Unknown 11/20/2024 12:48 AM NUCLEAR CONTROL OPERATOR 11/20/2024 1:18 AM NUCLEAR CONTROL OPERATOR Cathie Reyes MD LAB - CHEMISTRY KONG JENSEN Performing Organization Address City/[facility]/ZIP Co de Phone Number [address] [address], [place] [phone] * (ABNORMAL) CBC W/O DIFFERENTIAL (11/20/2024 12:48 AM NUCLEAR CONTROL OPERATOR) Only the most recent of14 resultswithin the time period is included. WBC 7.7 4.0 - 10.7 x10E9/L 11/20/2024 1:35 AM [facility] RBC Count 2.88(L) 3.90 - 5.20 x10E12/L 11/20/2024 1:35 AM [facility] Hemoglobin 8.0(L) 11.9 - 15.8 g/dL 11/20/2024 1:35 AM [facility] Hematocrit 24.5(L) 34.8 - 46.1 % 11/20/2024 1:35 AM [facility] MCV 85.1 80.0 - 98.0 fL 11/20/2024 1:35 AM [facility] MCH 27.8 26.7 - 33.6 pg 11/20/2024 1:35 AM [facility] MCHC 32.7 31.7 - 36.3 g/dL 11/20/2024 1:35 AM [facility] RDW-CV 15.9(H) 11.3 - 14.8 % 11/20/2024 1:35 AM [facility] Platelet Count 269 150 - 420 x10E9/L 11/20/2024 1:35 AM [facility] MPV 11.4 7.8 - 11.4 fL 11/20/2024 1:35 AM [facility] NRBC 0.3(H) <=0.0 /100 WBC 11/20/2024 1:35 AM [facility] Blood BLOOD SPECIMEN / Unknown Lab Venipuncture / Unknown 11/20/2024 12:48 AM NUCLEAR CONTROL OPERATOR 11/20/2024 1:18 AM NUCLEAR CONTROL OPERATOR Daryn North MD LAB - HEMATOLOGY ORD ERABLES [facility] [address] [place] [address], [facility] [phone] * HEPATITIS SCREEN ACUTE (11/20/2024 12:48 AM NUCLEAR CONTROL OPERATOR) Hepatitis A Virus Antibody IgM Non-react juju Non-reac tive 11/20/2024 2:21 AM [facility] Hepatitis B Virus Surface Antigen Non-react juju Non-reac tive 11/20/2024 2:21 AM [facility] Hepatitis B Core Virus Antibody IgM Non-react juju Non-reac tive 11/20/2024 2:21 AM [facility] Hepatitis C Antibody Non-react juju Non-reac tive 11/20/2024 2:21 AM [facility] Comment:Hepatitis C Antibody screen indicates no serologic evidence of past or current infection with Hepatitis C Virus. Patients with unexplained liver disease who are immunocompromised or suspected of having acute Hepatitis C infection may benefit from Nucleic Acid Test (KATIUSKA) for Hepatitis C Viral RNA to confirm Hepatitis C status. Blood BLOOD SPECIMEN / Unknown Lab Venipuncture / Unknown 11/20/2024 12:48 AM NUCLEAR CONTROL OPERATOR 11/20/2024 1:18 AM NUCLEAR CONTROL OPERATOR Cathie Reyes MD LAB - CHEMISTRY KONG JENSEN [address] [address], [facility] [phone] * (ABNORMAL) HEMOGLOBIN (11/19/2024 3:37 PM NUCLEAR CONTROL OPERATOR) [facility] Hemoglobin 9.3(L) 11.9 - 15.8 g/dL 11/19/2024 4:07 PM NUCLEAR CONTROL OPERATOR [facility] Blood BLOOD SPECIMEN / Unknown Lab Venipuncture / Unknown 11/19/2024 3:37 PM NUCLEAR CONTROL OPERATOR 11/19/2024 3:44 PM NUCLEAR CONTROL OPERATOR Missy Melgar PA-C LAB - HEMATO LOGY ORDERABLES [address] [address], [facility] [phone] * PREPARE (CROSSMATCH) RBC UNIT(S), 1 Units (11/19/2024 9:14 AM NUCLEAR CONTROL OPERATOR) Unit Description AS1 LR PRBC IRR [facility] Unit ABO O [facility] Unit Rh NEG [facility] Product Number R04 [facility] Unit Donor # [id number] [facility] Unit Status transfused [facility] Product Code [id number] [facility] Blood Type Barcode 9500 [facility] Expiration Date [facility] Blood Bank BLOOD SPECIMEN / Unknown 11/19/2024 6:33 AM NUCLEAR CONTROL OPERATOR Daryn North MD LAB - BLOOD BANK ORD ERABLES [facility] [address] [place] [address], [place] [phone] * TYPE + SCREEN PANEL (11/19/2024 6:24 AM NUCLEAR CONTROL OPERATOR) Only the most recent of4 resultswithin the time period is included. Pathologist [facility] Antibody Screen NEG 7:12 AM [facility] ABO Rh O POS 11/19/2024 7:12 AM [facility] Blood Bank BLOOD SPECIMEN / Unknown Venipuncture / Unknown 11/19/2024 6:24 AM NUCLEAR CONTROL OPERATOR 11/19/2024 6:33 AM NUCLEAR CONTROL OPERATOR Daryn North MD LAB - BLOOD BANK ORD ERABLES [facility] [address] [place] [address], [place] [phone] * (ABNORMAL) HEPATIC FUNCTION PANEL (11/19/2024 12:15 AM NUCLEAR CONTROL OPERATOR) Pathologist [facility] Protein Total 5.2(L) 6.0 - 8.3 g/dL 025 1:22 AM [facility] Albumin 2.1(L) 3.4 - 5.0 g/dL 11/19/2024 1:22 AM [facility] Bilirubin Total 0.2 0.2 - 1.2 mg/dL 02/2025 1:22 AM [facility] Bilirubin Conjugated 0.1 0.1 - 0.5 mg/dL 11/19/2024 1:22 AM [facility] Bilirubin Unconjugated 0.1 Unconjugated Bilirubin is a calculated value: Reference ranges have not been established. mg/dL 11/19/2024 1:22 AM [facility] Alkaline Phosphatase 279(H) 40 - 150 U/L 11/19/2024 1:22 AM [facility] ALT 79(H) 5 - 55 U/L 11/19/2024 1:22 AM [facility] AST 71(H) 5 - 34 U/L 11/19/2024 1:22 AM [facility] Albumin/Globulin Ratio 0.7(L) 1.1 - 2.3 11/19/2024 1:22 AM [facility] Blood BLOOD SPECIMEN / Unknown Lab Venipuncture / Unknown 11/19/2024 12:15 AM NUCLEAR CONTROL OPERATOR 11/19/2024 12:50 AM NUCLEAR CONTROL OPERATOR Daryn North MD [facility] Organization Address City/State/ZIP Co de Phone Number [address] [address], [facility] [phone] * EKG 12-LEAD (11/18/2024 11:30 AM NUCLEAR CONTROL OPERATOR) Ventricular Rate 79 BPM [facility] Atrial Rate 79 BPM [facility] P-R Interval 150 ms [facility] QRS Duration ms 100 ms [facility] Q-T Interval ms 406 ms [facility] QTC Calculation (Bezet) 465 ms [facility] Calculated P Maxbass 26 degrees [facility] Calculated R [place] 9 degrees [facility] Calculated T [place] 26 degrees [facility] Interpretation EKG NORMAL SINUS RHYTHM NORMAL ECG NO PREVIOUS ECGS AVAILABLE Confirmed by FRANC RODRIGUEZ MD ([id number]) on 11/22/2024 11:50:41 PM [facility] 11/18/2024 11:3 0 AM NUCLEAR CONTROL OPERATOR 11/22/2024 11:50 PM NUCLEAR CONTROL OPERATOR Daryn North MD ECG ORDERABLES [facility] * VAS Bilateral Venous Duplex Le (11/17/2024 12:30 PM NUCLEAR CONTROL OPERATOR) Anatomical Region Laterality Modality Lower Extremity Ultrasound 11/17/2024 12:1 3 PM NUCLEAR CONTROL OPERATOR Narrative Procedure Note Segundo Clement MD - 11/17/2024 Daryn North MD VASCULAR LAB ORDERAB LES * (ABNORMAL) CULTURE WOUND+GRAM STAIN (11/17/2024 8:38 AM NUCLEAR CONTROL OPERATOR) Only the most recent of5 resultswithin the time period is included. Culture Light Enterobacter cloacae complex(A) JERILYN 11/19/2024 1:56 PM NUCLEAR CONTROL OPERATOR [facility] Gram Stain Heavy Red blood cells 11/19/2024 1:56 PM NUCLEAR CONTROL OPERATOR [facility] Gram Stain Rare Polymorphonuclear cells 11/19/2024 1:56 PM NUCLEAR CONTROL OPERATOR [facility] Gram Stain No organisms seen 025 1:56 PM NUCLEAR CONTROL OPERATOR [facility] Microbiology ENTIRE [place] / Unknown Collection / Unknown 11/17/2024 8:38 AM NUCLEAR CONTROL OPERATOR 11/17/2024 8:46 AM NUCLEAR CONTROL OPERATOR Narrative [facility] - 11/19/2024 1:56 PM NUCLEAR CONTROL OPERATOR Enterobacter cloacae, Citrobacter freundii, Klebsiella (formerly [...] Daryn North MD LAB - MICROBIOLOGY O RDJEAN PAULBLES Performing Organization Address [facility] de Phone Number [facility] [address] [place] [address], [facility] [phone] * CULTURE ANAEROBE (11/17/2024 8:38 AM NUCLEAR CONTROL OPERATOR) Only the most recent of5 resultswithin the time period is included. Culture No anaerobic organisms isolated JERILYN 11/22/2024 1:20 PM NUCLEAR CONTROL OPERATOR [facility] Microbiology [place] / Unknown Collection / Unknown 11/17/2024 8:38 AM NUCLEAR CONTROL OPERATOR 11/17/2024 8:46 AM NUCLEAR CONTROL OPERATOR Daryn North MD LAB - MICROBIOLOGY O RDLUCILLE Performing Organization Address [facility] de Phone Number [facility] [address] [place] [address], [facility] [phone] * ETT LINE PERFORMABLE (11/17/2024 7:55 AM NUCLEAR CONTROL OPERATOR) Narrative Sandro Corona DO - 11/17/2024 7:55 AM NUCLEAR CONTROL OPERATOR Sandro Corona DO 11/17/2024 7:56 AM Endotracheal Tube Placement: Patient Location: OR. Intubation Event Date/Time: 11/17/2024 7:45 AM Procedure: intubation ([id number]) Procedure Section: Sedation: under general anesthesia. Indications [...] TO MICROSCOPIC NO CULTURE (11/16/2024 1:08 PM [facility]) Color UA Straw Straw, Yellow 11/16/2024 1:29 PM [facility] Clarity UA Clear Clear 11/16/2024 1:29 PM [facility] Specific [place] UA 1.008 1.005 - 1.030 11/16/2024 1:29 PM [facility] pH UA 5.0 5.0 - 8.0 pH 11/16/2024 1:29 PM [facility] Protein UA Negative Negative 11/16/2024 1:29 PM [facility] Glucose UA Negative Negative 11/16/2024 1:29 PM [facility] Ketone UA Negative Negative 11/16/2024 1:29 PM [facility] Bilirubin UA Negative Negative 11/16/2024 1:29 PM [facility] Blood UA Negative Negative 11/16/2024 1:29 PM [facility] Nitrite UA Negative Negative 11/16/2024 1:29 PM [facility] Leukocyte Esterase Negative Negative 11/16/2024 1:29 PM [facility] Urobilinogen UA Negative Negative mg/dL 11/16/2024 1:29 PM [facility] RBC UA 0-2 None Seen, 0-2, 3-5 /HPF 11/16/2024 1:29 PM [facility] WBC UA 0-5 None Seen, 0-5 /HPF 11/16/2024 1:29 PM [facility] Squamous Epithelial Cells UA 0-2 None Seen, 0-2, 3-5 /HPF 11/16/2024 1:29 PM [facility] Urine URINE SPECIMEN OBTAINED BY CLEAN CATCH PROCEDURE / Unknown Collection / Unknown 11/16/2024 1:08 PM NUCLEAR CONTROL OPERATOR 11/16/2024 1:22 PM NUCLEAR CONTROL OPERATOR Narrative [facility] - 11/16/2024 1:29 PM NUCLEAR CONTROL OPERATOR Neftali Read MD LAB - URINALYS IS ORDERABLES [facility] [address] [place] [address], [place] [phone] * PROTEIN URINE RANDOM QUANTITATIVE (11/16/2024 1:08 PM NUCLEAR CONTROL OPERATOR) Protein Urine <7 Not Established mg/dL 11/16/2024 1:43 PM NUCLEAR CONTROL OPERATOR [facility] Urine URINE SPECIMEN OBTAINED BY CLEAN CATCH PROCEDURE / Unknown Collection / Unknown 11/16/2024 1:08 PM NUCLEAR CONTROL OPERATOR 11/16/2024 1:22 PM NUCLEAR CONTROL OPERATOR Neftali Read MD LAB - URINE CH EMISTRY ORDERABLES Performing Organization Address City/[facility]/ZIP Co de Phone Number [address] [address], [place] [phone] * SODIUM URINE RANDOM (11/16/2024 1:08 PM NUCLEAR CONTROL OPERATOR) Sodium Urine 35 Not Established mmol/L 11/16/2024 1:43 PM NUCLEAR CONTROL OPERATOR [facility] Urine URINE SPECIMEN OBTAINED BY CLEAN CATCH PROCEDURE / Unknown Collection / Unknown 11/16/2024 1:08 PM NUCLEAR CONTROL OPERATOR 11/16/2024 1:22 PM NUCLEAR CONTROL OPERATOR Neftali Read MD LAB - URINE CH EMISTRY ORDERABLES [address] [address], [place] [phone] * UREA NITROGEN URINE RANDOM (11/16/2024 1:08 PM NUCLEAR CONTROL OPERATOR) Urea Nitrogen Random Urine 295 Not Established mg/dL 11/16/2024 1:43 PM NUCLEAR CONTROL OPERATOR [facility] Urine URINE SPECIMEN OBTAINED BY CLEAN CATCH PROCEDURE / Unknown Collection / Unknown 11/16/2024 1:08 PM NUCLEAR CONTROL OPERATOR 11/16/2024 1:22 PM NUCLEAR CONTROL OPERATOR Neftali Read MD LAB - URINE CH EMISTRY ORDERABLES [address] [address], [facility] [phone] * CREATININE URINE RANDOM (11/16/2024 1:08 PM NUCLEAR CONTROL OPERATOR) Creatinine Urine 44.87 Not Established mg/dL 11/16/2024 1:43 PM NUCLEAR CONTROL OPERATOR [facility] Urine URINE SPECIMEN OBTAINED BY CLEAN CATCH PROCEDURE / Unknown Collection / Unknown 11/16/2024 1:08 PM NUCLEAR CONTROL OPERATOR 11/16/2024 1:22 PM NUCLEAR CONTROL OPERATOR Neftali Read MD LAB - URINE CH EMISTRY ORDERABLES Performing Organization Address City/[facility]/ZIP Co de Phone Number [address] [address], [facility] [phone] * (ABNORMAL) VITAMIN D 25-HYDROXY (11/15/2024 12:56 AM NUCLEAR CONTROL OPERATOR) Only the most recent of2 resultswithin the time period is included. Vitamin D, 25 Hydroxy 25.9(L) 30.0 - 80.0 ng/mL 11/15/2024 3:11 AM NUCLEAR CONTROL OPERATOR [facility] Comment: The recommendations for 25-Hydroxy Vitamin [...] Lab Venipuncture / Unknown 11/15/2024 12:56 AM NUCLEAR CONTROL OPERATOR 11/15/2024 2:11 AM NUCLEAR CONTROL OPERATOR Sol Deterding PA-C LAB - CHEMISTRY ORDERABLES [facility] [address] [place] [address], [place] [phone] * FOLATE (11/15/2024 12:56 AM NUCLEAR CONTROL OPERATOR) Folate 10.0 7.0 - 31.4 ng/mL 11/15/2024 3:11 AM [facility] Blood BLOOD SPECIMEN / Unknown Lab Venipuncture / Unknown 11/15/2024 12:56 AM NUCLEAR CONTROL OPERATOR 11/15/2024 2:11 AM NUCLEAR CONTROL OPERATOR Sol Deterding PA-C LAB - CHEMISTRY ORDERABLES Performing Organization Address [facility]/ZIP Co de Phone Number [address] [address], [place] [phone] * VITAMIN B12 (11/15/2024 12:56 AM NUCLEAR CONTROL OPERATOR) Vitamin B12 583 213 - 816 pg/mL 11/15/2024 3:11 AM [facility] Blood BLOOD SPECIMEN / Unknown Lab Venipuncture / Unknown 11/15/2024 12:56 AM NUCLEAR CONTROL OPERATOR 11/15/2024 2:11 AM NUCLEAR CONTROL OPERATOR Sol Deterding PA-C LAB - CHEMISTRY ORDERABLES Performing Organization Address City/[facility]/ZIP Co de Phone Number [address] [address], [place] [phone] * (ABNORMAL) IRON + TRANSFERRIN PANEL (11/15/2024 12:56 AM NUCLEAR CONTROL OPERATOR) Iron 19(L) 40 - 150 ug/dL 11/15/2024 3:01 AM [facility] Transferrin 151(L) 174 - 382 mg/dL 11/15/2024 3:01 AM [facility] Transferrin Saturation % 10(L) 16 - 50 % 11/15/2024 3:01 AM [facility] TIBC Calculated 189(L) 240 - 450 ug/dL 11/15/2024 3:01 AM [facility] Blood BLOOD SPECIMEN / Unknown Lab Venipuncture / Unknown 11/15/2024 12:56 AM NUCLEAR CONTROL OPERATOR 11/15/2024 2:07 AM NUCLEAR CONTROL OPERATOR Sol Leal PA-C LAB - CHEMISTRY ORDERABLES Performing Organization Address City/[facility]/ZIP Co de Phone Number [address] [address], [facility] [phone] * (ABNORMAL) FERRITIN (11/15/2024 12:56 AM NUCLEAR CONTROL OPERATOR) Ferritin 668(H) 13 - 204 ng/mL 11/15/2024 3:19 AM [facility] Blood BLOOD SPECIMEN / Unknown Lab Venipuncture / Unknown 11/15/2024 12:56 AM NUCLEAR CONTROL OPERATOR 11/15/2024 2:07 AM NUCLEAR CONTROL OPERATOR Sol Leal PA-C LAB - CHEMISTRY ORDERABLES Performing Organization Address [facility]/ZIP Co de Phone Number [address] [address], [place] [phone] * HEMOGLOBIN A1C (11/14/2024 4:18 PM NUCLEAR CONTROL OPERATOR) Hemoglobin A1c 5.0 <=5.6 % 11/14/2024 5:30 PM [facility] Estimated Average Glucose 97 mg/dL 11/14/2024 5:30 PM [facility] Comment: HbA1c Interpretation: Normal : < 5.7% Pre-diabetes: 5.7-6.4% Diabetes: Equal to or greater than 6.5% Test results diagnostic of diabetes should be repeated for confirmation. Treatment target values recommended by ADA and other clinical organizations should be used to evaluate metabolic control in patients. Reference: [place] [employer], Standards of Care in Diabetes -2020 In patients 70 years and older consider HbA1c target range of 7.0-7.5% (Reference: Samy Cunningham et al. JAMDA. 2012) The Sebia assay for the measurement of HbA1c is a National Glycohemoglobin Standardization Program (NGSP) certified method. Blood BLOOD SPECIMEN / Unknown Lab Venipuncture / Unknown 11/14/2024 4:18 PM NUCLEAR CONTROL OPERATOR 11/14/2024 4:33 PM NUCLEAR CONTROL OPERATOR Daryn North MD LAB - CHEMISTRY [facility] [address] [place] [address], [facility] [phone] * ETT LINE PERFORMABLE (11/14/2024 7:57 AM NUCLEAR CONTROL OPERATOR) Narrative Mauro Miguel Anes Asst - 11/14/2024 7:57 AM NUCLEAR CONTROL OPERATOR Mauro Miguel Anes Asst 11/14/2024 7:57 AM Endotracheal Tube Placement: Patient Location: OR. Intubation Event Date/Time: 11/14/2024 7:33 AM Procedure: intubation ([id number]) Procedure Section: Sedation: IV sedation. Indications for [...] CBC W AUTO DIFFERENTIAL (11/14/2024 6:47 AM NUCLEAR CONTROL OPERATOR) Only the most recent of2 resultswithin the time period is included. [facility] WBC 7.3 4.0 - 10.7 x10E9/L 11/14/2024 7:45 AM NUCLEAR CONTROL OPERATOR [facility] RBC Count 3.30(L) 3.90 - 5.20 x10E12/L 11/14/2024 7:45 AM [facility] Hemoglobin 8.9(L) 11.9 - 15.8 g/dL 11/14/2024 7:45 AM [facility] Hematocrit 27.8(L) 34.8 - 46.1 % 11/14/2024 7:45 AM [facility] MCV 84.2 80.0 - 98.0 fL 11/14/2024 7:45 AM [facility] MCH 27.0 26.7 - 33.6 pg 11/14/2024 7:45 AM [facility] MCHC 32.0 31.7 - 36.3 g/dL 11/14/2024 7:45 AM [facility] RDW-CV 14.9(H) 11.3 - 14.8 % 11/14/2024 7:45 AM [facility] Platelet Count 11/14/2024 7:45 AM [facility] Comment:Platelets clumped on slide but appears adequate. Recommend repeat with a sodium citrate blue top tube. MPV 11/14/2024 7:45 AM [facility] Comment:Unable to report Neutrophil % 73.6 41.0 - 74.0 % 11/14/2024 7:45 AM [facility] Lymphocyte % 16.6(L) 17.0 - 47.0 % 11/14/2024 7:45 AM [facility] Monocyte % 8.4 3.0 - 11.0 % 11/14/2024 7:45 AM [facility] Eosinophil % 0.8 0.0 - 7.0 % 11/14/2024 7:45 AM [facility] Basophil % 0.3 0.0 - 1.6 % 11/14/2024 7:45 AM [facility] Immature Granulocytes % 0.3 0.0 - 1.0 % 11/14/2024 7:45 AM [facility] Neutrophil Absolute 5.34 1.60 - 7.50 x10E9/L 11/14/2024 7:45 AM [facility] Lymphocyte Absolute 1.20 1.00 - 4.40 x10E9/L 11/14/2024 7:45 AM [facility] Monocyte Absolute 0.61 0.15 - 1.00 x10E9/L 11/14/2024 7:45 AM NUCLEAR CONTROL OPERATOR [facility] Eosinophil Absolute 0.06 0.00 - 0.60 x10E9/L 11/14/2024 7:45 AM NUCLEAR CONTROL OPERATOR [facility] Basophil Absolute 0.02 0.00 - 0.13 x10E9/L 11/14/2024 7:45 AM NUCLEAR CONTROL OPERATOR [facility] Blood BLOOD SPECIMEN / Unknown Venipuncture / Unknown 11/14/2024 6:47 AM NUCLEAR CONTROL OPERATOR 11/14/2024 6:54 AM NUCLEAR CONTROL OPERATOR Flaco Rebollar MD LAB - HEMATOLOGY ORD ERABLES [facility] [address] [place] [address], [facility] [phone] * XR Wrist Left 3Vw or More (11/12/2024 9:24 AM NUCLEAR CONTROL OPERATOR) Anatomical Region Laterality Modality Wrist / Hand Radiographic Christa ging 11/12/2024 9:34 AM NUCLEAR CONTROL OPERATOR Impressions 11/12/2024 9:36 AM NUCLEAR CONTROL OPERATOR IMPRESSION: Mildly displaced distal radial fracture. > Interpreting Provider: Yefri Groves MD on 11/12/2024 9:36 AM Narrative 11/12/2024 9:36 AM NUCLEAR CONTROL OPERATOR PROCEDURE: XR WRIST LEFT 3VW OR [...] * [facility] (10/10/2024 11:01 AM NUCLEAR CONTROL OPERATOR) Only the most recent of2 resultswithin the time period is included. Narrative [facility] - 10/10/2024 11:02 AM NUCLEAR CONTROL OPERATOR Fluoroscopy was used for this exam in the OR. Please see the Operative report. Daryn North MD FLUOROSCOPY ORDERABL ES [facility] * IV PLACEMENT PERFORMABLE (10/10/2024 8:22 AM NUCLEAR CONTROL OPERATOR) Narrative Karol Dunn APRN-CRNA - 10/10/2024 8:22 AM NUCLEAR CONTROL OPERATOR Karol Dunn APRN-CRNA 10/10/2024 8:23 AM Peripheral IV Line Placement: Patient Location: OR Procedure: IV start ([id number]) Procedure Section: Skin Prep: alcohol. Orientation: left Location: forearm Catheter Gauge: 18 Number of Attempts: 1. Procedure Tolerance: performed while patient under general anesthesia. Staff Section Anesthesia Provider: Karol Dunn APRN-CRNA, Performed the procedure Joey Oneal MD GENERAL ANESTHESIA O [place]XIEBLES * ETT LINE PERFORMABLE (10/10/2024 8:22 AM NUCLEAR CONTROL OPERATOR) Narrative Karol Dunn APRN-CRNA - 10/10/2024 8:22 AM NUCLEAR CONTROL OPERATOR Karol Dunn APRN-CRNA 10/10/2024 8:22 AM Endotracheal Tube Placement: Patient Location: OR. Intubation Event Date/Time: 10/10/2024 7:43 AM Procedure: intubation ([id number]) Procedure Section: Sedation: under general anesthesia. Indications [...] AM. Staff Section Anesthesia Provider: Karol Dunn APRN-DOCUMENTATION LEAD, Performed the procedure Joey Oneal MD GENERAL ANESTHESIA O RDERABLES * XR Knee Right 2Vw or Less (09/21/2024 11:00 AM NUCLEAR CONTROL OPERATOR) Only the most recent of2 resultswithin the time period is included. Anatomical Region Laterality Modality Lower Extremity Digital Radiogra phy 09/21/2024 7:17 PM NUCLEAR CONTROL OPERATOR Impressions 09/21/2024 7:18 PM NUCLEAR CONTROL OPERATOR IMPRESSION: Comminuted fracture of the proximal tibia with interval placement of traction pin in the distal femoral diaphysis. > Interpreting Provider: Natalio Nam on 09/21/2024 7:18 PM Narrative 09/21/2024 7:18 PM NUCLEAR CONTROL OPERATOR PROCEDURE: XR KNEE RIGHT 2VW OR [...] PM Marifer Saeed MD DIAGNOSTIC IMAGING O [place]XIE[place]ES * IV PLACEMENT PERFORMABLE (09/19/2024 4:47 PM NUCLEAR CONTROL OPERATOR) Karol Cat APRN-CRNA - 09/19/2024 4:47 PM NUCLEAR CONTROL OPERATOR Karol Dunn APRN-CRNA 09/19/2024 4:47 PM Peripheral IV Line Placement: Patient Location: OR Insertion Time: 09/19/2024 4:39 PM Procedure: IV start ([id number]) Procedure Section: Skin Prep: alcohol. Orientation: left Location: hand Catheter Gauge: 20 Number of Attempts: 1. Procedure Tolerance: performed while patient under general anesthesia. Staff Section Anesthesia Provider: Karol Dunn APRN-CRNA Performed the procedure Chelsey Minaya MD GENERAL ANESTHESIA O [place] * ETT LINE PERFORMABLE (09/19/2024 4:46 PM NUCLEAR CONTROL OPERATOR) Karol Cat APRN-CRNA - 09/19/2024 4:46 PM NUCLEAR CONTROL OPERATOR Karol Dunn APRN-CRNA 09/19/2024 4:47 PM Endotracheal Tube Placement: Patient Location: OR. Intubation Event Date/Time: 09/19/2024 4:23 PM Procedure: intubation ([id number]) Procedure Section: Sedation: under general anesthesia. Indications [...] PM. Staff Section Anesthesia Provider: Karol Dunn APRN-DOCUMENTATION LEAD, Performed the procedure Chelsey Minaya MD GENERAL ANESTHESIA O RDERABLES * CT Tibia Fibula Right Wo Cont (09/19/2024 1:14 AM NUCLEAR CONTROL OPERATOR) Anatomical Region Laterality Modality Lower Extremity Computed Tomogra phy 09/19/2024 1:28 AM NUCLEAR CONTROL OPERATOR Impressions 09/19/2024 1:47 AM NUCLEAR CONTROL OPERATOR IMPRESSION: 1.Acute comminuted and moderately displaced fracture of the proximal tibia with intra-articular extension involving the medial and lateral tibial plateaus. 2.Soft tissue swelling about the knee and proximal lower leg with small volume hemarthrosis. Report dictated by Valentín Zheng MD (vice president sales). I, Alejandro Hung MD have personally reviewed and interpreted this examination/study. > Interpreting Provider: Alejandro Hung MD on 09/19/2024 1:47 AM Narrative 09/19/2024 1:47 AM NUCLEAR CONTROL OPERATOR PROCEDURE: CT KNEE RIGHT WO CONTRAST, CT TIBIA FIBULA RIGHT WO CONT, DATE/TIME OF EXAM: 09/19/2024 1:15 AM, LOCATION [facility] INDICATION: M79.604: Right leg pain ADDITIONAL CLINICAL INFORMATION: Ordering Provider Reason For Exam: eval fracture (accession [id number]), fracture (accession [id number]) COMPARISON: Right knee and right tibia-fibula radiographs [...] OF EXAM: 09/19/2024 1:15 AM, LOCATION [facility] INDICATION: M79.604: Right leg pain ADDITIONAL CLINICAL INFORMATION: Ordering Provider Reason For Exam: eval fracture (accession [id number]), fracture (accession [id number]) COMPARISON: Right knee and right tibia-fibula radiographs [...] dictated by Valentín Zheng MD (vice president sales). Alejandro Garcia MD have personally reviewed and interpreted this examination/study. > Interpreting Provider: Alejandro Hung MD on 09/19/2024 1:47 AM Adeola Carreon MD CT ORDERABLES * CT Knee Right Wo Contrast (09/19/2024 1:14 AM NUCLEAR CONTROL OPERATOR) Anatomical Region Laterality Modality Lower Extremity Computed Tomogra phy 09/19/2024 1:28 AM NUCLEAR CONTROL OPERATOR Impressions 09/19/2024 1:47 AM NUCLEAR CONTROL OPERATOR IMPRESSION: 1.Acute comminuted and moderately displaced fracture of the proximal tibia with intra-articular extension involving the medial and lateral tibial plateaus. 2.Soft tissue swelling about the knee and proximal lower leg with small volume hemarthrosis. Report dictated by Valentín Zheng MD (vice president sales). Alejandro Garcia MD have personally reviewed and interpreted this examination/study. > Interpreting Provider: Alejandro Hung MD on 09/19/2024 1:47 AM Narrative 09/19/2024 1:47 AM NUCLEAR CONTROL OPERATOR PROCEDURE: CT KNEE RIGHT WO CONTRAST, CT TIBIA FIBULA RIGHT WO CONT, DATE/TIME OF EXAM: 09/19/2024 1:15 AM, LOCATION [facility] INDICATION: M79.604: Right leg pain ADDITIONAL CLINICAL INFORMATION: Ordering Provider Reason For Exam: eval fracture (accession [id number]), fracture (accession [id number]) COMPARISON: Right knee and right tibia-fibula radiographs [...] OF EXAM: 09/19/2024 1:15 AM, LOCATION [facility] INDICATION: M79.604: Right leg pain ADDITIONAL CLINICAL INFORMATION: Ordering Provider Reason For Exam: eval fracture (accession [id number]), fracture (accession [id number]) COMPARISON: Right knee and right tibia-fibula radiographs [...] dictated by Valentín Zheng MD (vice president sales). I, Alejandro Hung MD have personally reviewed and interpreted this examination/study. > Interpreting Provider: Alejandro Hung MD on 09/19/2024 1:47 AM Adeola Carreon MD CT ORDERABLES * XR Foot Right 3Vw or More (09/19/2024 12:45 AM NUCLEAR CONTROL OPERATOR) Anatomical Region Laterality Modality Ankle / Foot Digital Radiogra phy 09/19/2024 1:25 AM NUCLEAR CONTROL OPERATOR Narrative 09/19/2024 9:28 AM NUCLEAR CONTROL OPERATOR PROCEDURE: XR FOOT RIGHT 3VW OR MORE, DATE/TIME OF EXAM: 09/19/2024 12:45 AM, LOCATION [facility] INDICATION: M79.604: Right leg pain [...] screws. Report dictated by Jasmeet Simental MD IYefri MD have personally reviewed and interpreted this examination/study. > Interpreting Provider: Yefri Groves MD on 09/19/2024 9:28 AM Procedure Note Yefri Groves MD - 09/19/2024 PROCEDURE: XR FOOT RIGHT 3VW OR MORE, DATE/TIME OF EXAM: 2:45 AM, LOCATION [facility] INDICATION: M79.604: Right leg pain [...] Ethnicity: Not or Race: White _ Providers: aBlwinder Goncalves MD, Nai Ford MD (Fellow) Referring [...] the patient. Procedure Code(s): --- Professional --- 92638, Colonoscopy, flexible; with removal of tumor(s), polyp(s), or other lesion(s) by snare technique 34205, 59, Colonoscopy, flexible; with biopsy, single or multiple Diagnosis Code(s): --- Professional --- Z12.11, Encounter for screening for malignant neoplasm of colon D12.0, Benign neoplasm of cecum CPT copyright 2021 [employer] [employer]. All rights reserved. The codes documented in this report are preliminary and upon meat lugger review may be revised to meet current compliance requirements. Balwinder Goncalves MD 05/30/2024 10:32:28 AM This report has been signed electronically. Note Initiated On: 05/30/2024 9:42 AM Number of Addenda: [address] [address] [facility] 05/30/2024 9:42 AM CDT Balwinder Goncalves MD GI PROCEDURE ORDERAB LES [facility] from Last 3 Months or Most [...] 12:27 PM 03/16/2021 2:18 PM Care Teams Windows Systems Administrator Relationship Specialty Start Date End Date Geovanni Rodriguez DO [address] [place] [address] PCP - General Internal Medicine 09/19/24
--- OUTSIDE RECORDS SUMMARY | 2024-11-27 15:03 | XMS_ITS | Patient Health Summary ---
Author Organization [facility] Address [address] [place] [address] Care Team Providers Care Supplier Quality Name Role Phone Balaji Rodriguezdie Nadja DO Primary Care Provider [phone] Note from [facility],non-owned Affiliates and Associated Physician Practices is amultiple site organization consisting of ambulatory clinics and hospital sitesin [place], [place], [place] and [place]. This disclosure is being madepursuant to the Care Everywhere program and may not contain all information available regarding this patient. Last updated 18.[facility] Allergies * Meperidine(Urticaria) -Medium Criticality * Nickel(Other) [...] Recorded Patient Health Questionnaire-2 Score 1 11/26/2024 [facility] of Occupat ional Health - Occupational Stress [...] any time in the past 12 m [facility], were you homeless or living in a alf (including now)? No 11/15/2024 Sex and Gender Information Value Date Recorded Sex Assigned at Female 06/03/2023 3:57 PM CDT Gender Identity Female 06/03/2023 3:57 PM CDT Sexual Orientation Not on file Last Filed Vital Signs Vital Sign Reading Time Taken Comments Blood Pressure 138/73 11/26/2024 7:43 AM [facility] Pulse 70 11/26/2024 7:43 AM [facility] Temperature 36.7 C (98 F) 11/26/2024 7:43 AM [facility] Respiratory Rate 18 11/26/2024 7:43 AM [facility] Oxygen Saturation 97% 11/26/2024 7:43 AM [facility] Inhaled Oxygen Concentration 40% 10/10/2024 1 2:23 PM [facility] Weight 89.4 kg (197 lb) 11/26/2024 9:39 AM [facility] Height 167.6 cm (5' 6 ) 11/26/2024 9:39 AM [facility] Body Mass Index 31.8 11/26/2024 9:39 AM [facility] Medical Devices Implanted Type Area It Sales Consultant Device Identifier Shelf Expiration Date Model / Serial / Lot Screw 3.5mm 50mm 2.5mm Slf-Tap Sm Hex Implanted:Qty : 1 on 03/15/2021 by Sukumar Magaña, DO at [facility] Right: [employer] [id number] / / Screw 3.5mm 55mm 2.5mm Slf-Tap Sm Hex Implanted:Qty : 1 on 03/15/2021 by Sukumar Magaña, DO at [facility] Right: [employer] [id number] / / Plate 2 Hl 2 Comp Colr 25mm /3 Tblr Implanted:Qty : 1 on 03/15/2021 by Sukumar Magaña DO at [facility] Right: [employer] [id number] / / Sub Bngf 4.8mm Ostst Ca Slf Pelt Implanted:Qty : 1 on 03/15/2021 by Sukumar Magaña DO at [facility] [employer] 1508-3424 / / [id number] Screw 4.7mm 5.6mm 36mm 2.5mm Ft Va Lopro Implanted:Qty : 2 on 10/10/2024 by Daryn North MD at [facility] Right: Tibia [employer] 11/26/2033 [id number] / / [id number] Screw 4.7mm 5.6mm 28mm 2.5mm Ft Va Lopro Implanted:Qty : 1 on 10/10/2024 by Daryn North MD at [facility] Right: [employer] 03/12/2032 [id number] / / [id number] Screw 4.7mm 5.6mm 32mm 2.5mm Ft Va Lopro Implanted:Qty : 1 on 10/10/2024 by Daryn North MD at [facility] Right: [employer] [id number] 10/19/2030 [id number] / / [id number] Agent Hmst Thrmb Kt Surgiflo 2ml Implanted:Qty : 2 on 10/10/2024 by Daryn North MD at [facility] Right: Tibia [employer] [id number] / / Screw 3.5mm 26mm Slf-Tap Cortx Evos Strl Implanted:Qty : 1 on 10/10/2024 by Daryn North MD at [facility] Right: [employer] [id number] / / Screw 3.5mm 32mm Slf-Tap Cortx Evos Strl Implanted:Qty : 1 on 10/10/2024 by Daryn North MD at [facility] Right: [employer] [id number] / / Screw 3.5mm 34mm Slf-Tap Cortx Evos Strl Implanted:Qty : 1 on 10/10/2024 by Daryn North MD at [facility] Right: [employer] [id number] / / Screw 3.5mm 15mm Slf-Tap Lck Evos Strl Implanted:Qty : 1 on 10/10/2024 by Daryn North MD at [facility] Right: [employer] [id number] / / Plate 9 Hl Va Lck Fib Lt Dist 125mm Implanted:Qty : 1 on 10/10/2024 by Daryn North MD at [facility] Right: [employer] [id number] / / Screw 3.5mm 32mm Ft Slf-Tap Hex Lopro Implanted:Qty : 1 on 10/10/2024 by Daryn North MD at [facility] Right: [employer] [id number] / / Screw 3.5mm 60mm T15 Lck Slf-Tap Tip Tpr Implanted:Qty : 1 on 10/10/2024 by Daryn North MD at [facility] Right: [employer] [id number] / / Screw 3.5mm 65mm T15 Lck Slf-Tap Tip Tpr Implanted:Qty : 3 on 10/10/2024 by Daryn North MD at [facility] Right: [employer] [id number] / / Screw 3.5mm 70mm T15 Lck Slf-Tap Tip Tpr Implanted:Qty : 1 on 10/10/2024 by Daryn North MD at [facility] Right: [employer] [id number] / / Plate 9 Hl Lck Lopro Dist Blt Tip Tib Rt Implanted:Qty : 1 on 10/10/2024 by Daryn North MD at [facility] Right: [employer] [id number] / / Screw 3.5mm 75mm T15 Lck Slf-Tap Tip Tpr Implanted:Qty : 2 on 10/10/2024 by Daryn North MD at [facility] Right: [employer] [id number] / / Screw 3.5mm 40mm Ft Slf-Tap Hex Lopro Implanted:Qty : 1 on 10/10/2024 by Daryn North MD at [facility] Right: [employer] [id number] / / Screw 3.5mm 20mm T15 Slf-Tap Lck Tpr Implanted:Qty : 1 on 10/10/2024 by Daryn North MD at [facility] Right: [employer] [id number] / / Cmnt Bone Smpx Ptbr Fd Radopq Prebl Implanted:Qty : 1 on 11/17/2024 by Daryn North MD at [facility] Right: Knee [employer] 01/12/2026 6197-9-010 / / [id number] Bone Void 10cc 20cc Ca Slf Stimulan Implanted:Qty : 1 on 11/17/2024 by Daryn North MD at [facility] Right: [employer]nee [employer] 07/14/2027 620-010 / / [id number] Explanted Type Area It Sales Consultant Device Identifier Shelf Expiration Date Model / Serial / Lot Wire K 2mm 150mm 1 End Troc Pnt Ss Sm Explanted:Qty: 1 on 03/15/2021 by Sukumar Magaña DO at [facility] Right: [employer] [id number] / / Screw 3.5mm 60mm 2.5mm Slf-Tap Sm Hex Explanted:Qty: 1 on 03/15/2021 by Sukumar Magaña DO at [facility] Right: [employer] [id number] / / Cplng Extfix Hfmn 3 Nikhil To Nikhil Salomón Explanted:Qty: 4 on 09/19/2024 by Marifer Saeed MD at [facility] Right: [employer] 4922-1-010 / / Screw 3.5mm 38mm Slf-Tap Cortx Evos Strl Explanted:Qty: 1 on 10/10/2024 by Daryn North MD at [facility] Right: [employer] [id number] / / Screw 3.5mm 42mm Slf-Tap Cortx Evos Strl Explanted:Qty: 1 on 10/10/2024 by Daryn North MD at [facility] Right: [employer] [id number] / / Wire K 1.6mm 150mm Troc Pnt Ss Fx Strl Explanted:Qty: 1 on 10/10/2024 by Daryn North MD at [facility] Right: [employer] [id number] / / Plate 11 Hl Va Lck Lopro Fib Lt Dist Lat Explanted:Qty: 1 on 10/10/2024 by Daryn North MD at [facility] Right: [employer] [id number] / / Wire K 1.6mm 6in Hlf Bynt Pnt Ss Fx Explanted:Qty: 3 on 10/10/2024 by Daryn North MD at [facility] Right: [employer] [id number] / / Pin Hlf 180mm 5mm Apx Hfmn2 Canc Ss Implanted:Qty: 2 on 09/19/2024 by Marifer Saeed MD at [facility] Explanted:Qty: 2 on 10/10/2024 by Daryn North MD at [facility] Right: Tibia [employer] [id number] / / Pin Hlf 200mm 5mm Apx Hfmn2 Orth Ss Thrd Implanted:Qty: 2 on 09/19/2024 by Marifer Saeed MD at [facility] Explanted:Qty: 2 on 10/10/2024 by Daryn North MD at [facility] Right: [employer] 5018-6-200 / / Procedures * XR [...] 11/17/2024) * ENDOTRACHEAL TUBE NOTE(Performed 11/17/2024) * CO EXPLORE WOUND,EXTREMITY(Performed 11/17/2024) Performed for Injury of [...] 11/14/2024) * ENDOTRACHEAL TUBE NOTE(Performed 11/14/2024) * CO RENE SUBQ TISSUE 20 SQ CM/<(Performed 11/14/2024) [...] 10/10/2024) * ENDOTRACHEAL TUBE NOTE(Performed 10/10/2024) * CO OPEN RX BILAT TIB PLAT FX(Performed 10/10/2024) [...] 09/19/2024) * ENDOTRACHEAL TUBE NOTE(Performed 09/19/2024) * CO CLOSED RX TIBIA SHAFT FX(Performed 09/19/2024) Performed [...] 05/30/2024) * ENDOSCOPY, COLON, SCREENING(Performed 05/30/2024) * CO COLOREC CANC SCRN,SCOPY NOT HI RISK(Performed 05/30/2024) Performed for Gastroesophageal reflux disease, unspecified whether esophagitis present, Screen for colon cancer * CO ED EGD FLEX TRANSORAL DX(Performed 05/30/2024) Performed for Gastroesophageal reflux disease, unspecified whether esophagitis present, Screen for colon cancer * XR FOOT LEFT WT BEARING 3VW(Performed 03/13/2024) Performed for Orthopedic aftercare * XR ANKLE LEFT 3VW OR MORE(Performed 03/13/2024) Performed for Orthopedic aftercare * CO INCISE FINGER TENDON SHEATH(Performed 09/20/2022) Performed for [...] Performed for Arthralgia of right foot * CO OPEN RX TIBIA SHAFT FX,SCREWS(Performed 03/15/2021) Performed for Gastrocnemius equinus of right lower extremity, Primary osteoarthritis of right ankle * CO GASTROCNEMIUS RECESSION(Performed 03/15/2021) Performed for Gastrocnemius equinus [...] Tibia Fibula Right 2Vw (11/26/2024 9:34 AM [facility]) Only the most recent of5 resultswithin the time period is included. Anatomical Region Laterality Modality Lower Extremity Computed Radiogr aphy 11/26/2024 10:0 0 AM [facility] Impressions 11/26/2024 10:29 AM [facility] IMPRESSION: Redemonstration of a proximal tibial fracture fixation and distal tibiofibular syndesmotic fixation, unchanged in alignment. Interval appearance of multiple radiopaque findings within the lateral aspect of the distal thigh and medial aspect of the proximal leg soft tissue, likely antibiotic beads. Report dictated by Luciano Woods MD, ([employer]). I, Yefri Stafford MD have personally reviewed and interpreted this examination/study. > Interpreting Provider: Yefri Stafford MD on 11/26/2024 10:29 AM Narrative 11/26/2024 10:29 AM [facility] PROCEDURE: XR TIBIA FIBULA RIGHT 2VW, DATE/TIME OF EXAM: 11/26/2024 9:34 AM, LOCATION [facility] INDICATION: S82.121A: Closed fracture of lateral [...] 2VW, DATE/TIME OF EXAM: 59:34 AM, LOCATION [facility] INDICATION: S82.121A: Closed fracture of lateral [...] beads. Report dictated by Luciano Woods MD, ([employer]). I, Yefri Stafford MD have personally reviewed and interpreted this examination/study. > Interpreting Provider: Yefri Stafford MD on 11/26/2024 10:29 AM Daryn North MD DIAGNOSTIC IMAGING O RDERABLES * (ABNORMAL) COMPREHENSIVE METABOLIC PANEL (11/26/2024 8:49 AM [facility]) Only the most recent of3 resultswithin the time period is included. BUN 23 7 - 26 mg/dL 11/26/2024 12:07 PM [facility] Creatinine 0.88 0.56 - 0.96 mg/dL 11/26/2024 12:07 PM [facility] Sodium 143 136 - 145 mmol/L 11/26/2024 12:07 PM [facility] Potassium 3.9 3.5 - 4.5 mmol/L 11/26/2024 12:07 PM [facility] Chloride 115(H) 98 - 107 mmol/L 11/26/2024 12:07 PM [facility] CO2 18(L) 22 - 29 mmol/L 11/26/2024 12:07 PM [facility] Glucose 83 70 - 99 mg/dL 11/26/2024 12:07 PM [facility] Calcium 9.1 8.4 - 10.2 mg/dL 11/26/2024 12:07 PM [facility] Protein Total 6.6 6.0 - 8.3 g/dL 11/26/2024 12:07 PM [facility] Albumin 2.9(L) 3.4 - 5.0 g/dL 11/26/2024 12:07 PM [facility] Bilirubin Total 0.3 0.2 - 1.2 mg/dL 11/26/2024 12:07 PM [facility] Alkaline Phosphatase 200(H) 40 - 150 U/L 11/26/2024 12:07 PM [facility] ALT 25 5 - 55 U/L 11/26/2024 12:07 PM [facility] AST 21 5 - 34 U/L 11/26/2024 12:07 PM [facility] Anion Gap 10 6 - 16 11/26/2024 12:07 PM [facility] BUN/Creatinine Ratio 26(H) 7 - 23 11/26/2024 12:07 PM [facility] Osmolality Calculated 299(H) 275 - 295 mOsm/kg 11/26/2024 12:07 PM [facility] Albumin/Globulin Ratio 0.8(L) 1.1 - 2.3 11/26/2024 12:07 PM [facility] eGFR by CKD-EPI 72(L) >=90 mL/min/1.7 3 m2 11/26/2024 12:07 PM [facility] Blood BLOOD SPECIMEN / Unknown Lab Venipuncture / Unknown 11/26/2024 8:49 AM [facility] 11/26/2024 11:42 AM [facility] Nikhil Godinez III, MD LAB - CHEMISTRY O RDERABLES Performing Organization Address City/[facility]/ZIP Co de Phone Number [address] [address], [place] [phone] * GLUCOSE - POINT OF CARE (11/20/2024 1:30 PM [facility]) Only the most recent of23 resultswithin the time period is included. Glucose WB/POC 95 70 - 99 mg/dL 11/20/2024 4:55 PM [facility] Specimen Type Cap Fingerstick 2024 4:55 PM [facility] Blood BLOOD SPECIMEN / Unknown 11/20/2024 1:30 PM [facility] 11/20/2024 4:55 PM [facility] Daryn North MD LAB - POINT OF CARE ORDERABLES [address] [address], [place] [phone] * (ABNORMAL) BASIC METABOLIC PANEL (CALCIUM TOTAL) (11/20/2024 12:49 AM [facility]) Only the most recent of14 resultswithin the time period is included. BUN 26 7 - 26 mg/dL 11/20/2024 1:59 AM [facility] Creatinine 0.98(H) 0.56 - 0.96 mg/dL 11/20/2024 1:59 AM [facility] Sodium 143 136 - 145 mmol/L 11/20/2024 1:59 AM [facility] Potassium 3.8 3.5 - 4.5 mmol/L 11/20/2024 1:59 AM [facility] Chloride 113(H) 98 - 107 mmol/L 11/20/2024 1:59 AM [facility] CO2 22 22 - 29 mmol/L 11/20/2024 1:59 AM [facility] Glucose 95 70 - 99 mg/dL 11/20/2024 1:59 AM [facility] Calcium 8.9 8.4 - 10.2 mg/dL 11/20/2024 1:59 AM [facility] Anion Gap 8 6 - 16 11/20/2024 1:59 AM [facility] BUN/Creatinine Ratio 27(H) 7 - 23 11/20/2024 1:59 AM [facility] Osmolality Calculated 301(H) 275 - 295 mOsm/kg 11/20/2024 1:59 AM [facility] eGFR by CKD-EPI 64(L) >=90 mL/min/1.7 3 m2 11/20/2024 1:59 AM [facility] Blood BLOOD SPECIMEN / Unknown Lab Venipuncture / Unknown 11/20/2024 12:49 AM [facility] 11/20/2024 1:28 AM [facility] Daryn North MD LAB - CHEMISTRY KONG JENSEN [facility] Organization Address City/State/ZIP Co de Phone Number [facility] [address] [place] [phone], [facility] [phone] * HEPATITIS C AB SCREEN RFLX NAAT QUANT (11/20/2024 12:48 AM [facility]) Hepatitis C Antibody Non-react juju Non-reac tive 11/20/2024 2:21 AM [facility] Comment: Hepatitis C Antibody screen indicates [...] Lab Venipuncture / Unknown 11/20/2024 12:48 AM [facility] 11/20/2024 1:18 AM [facility] Cathie Reyes MD LAB - CHEMISTRY KONG JENSEN [address] [address], [facility] [phone] * HIV-1 HIV-2 ANTIBODY + HIV P24 AG PANEL (11/20/2024 12:48 AM [facility]) Pathologist [facility] HIV Antigen/Antibod y 1 & 2 Non-reacti ve Non-react juju 11/20/2024 2:21 AM [facility] Comment:No Laboratory eviden ce of HIV infection. Blood BLOOD SPECIMEN / Unknown Lab Venipuncture / Unknown 11/20/2024 12:48 AM [facility] 11/20/2024 1:18 AM [facility] Cathie Reyes MD LAB - CHEMISTRY KONG JENSEN Performing Organization Address City/[facility]/ZIP Co de Phone Number [address] [address], [facility] [phone] * (ABNORMAL) CBC W/O DIFFERENTIAL (11/20/2024 12:48 AM [facility]) Only the most recent of15 resultswithin the time period is included. Pathologist [facility] WBC 7.7 4.0 - 10.7 x10E9/L 11/20/2024 1:35 AM [facility] RBC Count 2.88(L) 3.90 - 5.20 x10E12/L 11/20/2024 1:35 AM [facility] Hemoglobin 8.0(L) 11.9 - 15.8 g/dL 11/20/2024 1:35 AM [facility] Hematocrit 24.5(L) 34.8 - 46.1 % 11/20/2024 1:35 AM [facility] MCV 85.1 80.0 - 98.0 fL 11/20/2024 1:35 AM [facility] MCH 27.8 26.7 - 33.6 pg 11/20/2024 1:35 AM [facility] MCHC 32.7 31.7 - 36.3 g/dL 11/20/2024 1:35 AM [facility] RDW-CV 15.9(H) 11.3 - 14.8 % 11/20/2024 1:35 AM [facility] Platelet Count 269 150 - 420 x10E9/L 11/20/2024 1:35 AM [facility] MPV 11.4 7.8 - 11.4 fL 11/20/2024 1:35 AM [facility] NRBC 0.3(H) <=0.0 /100 WBC 11/20/2024 1:35 AM [facility] Blood BLOOD SPECIMEN / Unknown Lab Venipuncture / Unknown 11/20/2024 12:48 AM [facility] 11/20/2024 1:18 AM [facility] Daryn North MD LAB - HEMATOLOGY ORD ERABLES Performing Organization Address City/State/[facility] Co de Phone Number [facility] [address] [place] [phone], [facility] [phone] * HEPATITIS SCREEN ACUTE (11/20/2024 12:48 AM [facility]) Hepatitis A Virus Antibody IgM Non-react juju Non-reac tive 11/20/2024 2:21 AM [facility] Hepatitis B Virus Surface Antigen Non-react juju Non-reac tive 11/20/2024 2:21 AM [facility] Hepatitis B Core Virus Antibody IgM Non-react juju Non-reac tive 11/20/2024 2:21 AM [facility] Hepatitis C Antibody Non-react juju Non-reac tive 11/20/2024 2:21 AM [facility] Comment:Hepatitis C Antibody screen indicates no serologic evidence of past or current infection with Hepatitis C Virus. Patients with unexplained liver disease who are immunocompromised or suspected of having acute Hepatitis C infection may benefit from Nucleic Acid Test (KATIUSKA) for Hepatitis C Viral RNA to confirm Hepatitis C status. Blood BLOOD SPECIMEN / Unknown Lab Venipuncture / Unknown 11/20/2024 12:48 AM [facility] 11/20/2024 1:18 AM [facility] Cathie Reyes MD LAB - CHEMISTRY KONG JENSEN Performing Organization Address City/[facility]/ZIP Co de Phone Number [address] [address], [facility] [phone] * (ABNORMAL) HEMOGLOBIN (11/19/2024 3:37 PM [facility]) [facility] Hemoglobin 9.3(L) 11.9 - 15.8 g/dL 11/19/2024 4:07 PM [facility] Blood BLOOD SPECIMEN / Unknown Lab Venipuncture / Unknown 11/19/2024 3:37 PM [facility] 11/19/2024 3:44 PM [facility] Missy Melgar PA-C LAB - HEMATO LOGY ORDERABLES Performing Organization Address [facility]/ZIP Co de Phone Number [address] [address], [facility] [phone] * PREPARE (CROSSMATCH) RBC UNIT(S), 1 Units (11/19/2024 9:14 AM [facility]) Unit Description AS1 LR PRBC IRR [facility] Unit ABO O [facility] Unit Rh NEG [facility] Product Number R04 [facility] Unit Donor # [id number] [facility] Unit Status transfused [facility] Product Code [id number] [facility] Blood Type Barcode 9500 [facility] Expiration Date [id number] S BLOOD BANK LAB Blood Bank BLOOD SPECIMEN / Unknown 11/19/2024 6:33 AM [facility] Daryn North MD LAB - BLOOD BANK ORD ERABLES Performing Organization Address City/[facility]/ZIP Co de Phone Number [facility] [address] [place] [phone], [facility] [phone] * TYPE + SCREEN PANEL (11/19/2024 6:24 AM [facility]) Only the most recent of5 resultswithin the time period is included. [facility] Antibody Screen NEG 7:12 AM [facility] ABO Rh O POS 11/19/2024 7:12 AM [facility] Blood Bank BLOOD SPECIMEN / Unknown Venipuncture / Unknown 11/19/2024 6:24 AM [facility] 11/19/2024 6:33 AM [facility] Daryn North MD LAB - BLOOD BANK ORD ERABLES Performing Organization Address [facility] Co de Phone Number [facility] [address] [place] [phone], [facility] [phone] * (ABNORMAL) HEPATIC FUNCTION PANEL (11/19/2024 12:15 AM [facility]) Only the most recent of2 resultswithin the time period is included. [facility] Protein Total 5.2(L) 6.0 - 8.3 g/dL 025 1:22 AM [facility] Albumin 2.1(L) 3.4 - 5.0 g/dL 11/19/2024 1:22 AM [facility] Bilirubin Total 0.2 0.2 - 1.2 mg/dL 02/2025 1:22 AM [facility] Bilirubin Conjugated 0.1 0.1 - 0.5 mg/dL 11/19/2024 1:22 AM [facility] Bilirubin Unconjugated 0.1 Unconjugated Bilirubin is a calculated value: Reference ranges have not been established. mg/dL 11/19/2024 1:22 AM [facility] Alkaline Phosphatase 279(H) 40 - 150 U/L 11/19/2024 1:22 AM [facility] ALT 79(H) 5 - 55 U/L 11/19/2024 1:22 AM [facility] AST 71(H) 5 - 34 U/L 11/19/2024 1:22 AM [facility] Albumin/Globulin Ratio 0.7(L) 1.1 - 2.3 11/19/2024 1:22 AM [facility] Blood BLOOD SPECIMEN / Unknown Lab Venipuncture / Unknown 11/19/2024 12:15 AM [facility] 11/19/2024 12:50 AM [facility] Daryn North MD LAB - [facility] [address] [place] [address], [facility] [phone] * EKG 12-LEAD (11/18/2024 11:30 AM [facility]) Ventricular Rate 79 BPM SL MUSE Atrial Rate 79 BPM [facility] MUSE P-R Interval 150 ms [facility] MUSE QRS Duration ms 100 ms [facility] MUSE Q-T Interval ms 406 ms [facility] MUSE QTC Calculation (Bezet) 465 ms [facility] MUSE Calculated P [place] 26 degrees SL MUSE Calculated R [place] 9 degrees SL MUSE Calculated T [place] 26 degrees [facility] MUSE Interpretation EKG NORMAL SINUS RHYTHM NORMAL ECG NO PREVIOUS ECGS AVAILABLE Confirmed by FRANC RODRIGUEZ MD ([id number]) on 11/22/2024 11:50:41 PM [facility] MUSE 11/18/2024 11:3 0 AM UPHOLSTERY SEWER 11/22/2024 11:50 PM UPHOLSTERY SEWER Daryn North MD ECG ORDERABLES [facility] MUSE * VAS Bilateral Venous Duplex Le (11/17/2024 12:30 PM UPHOLSTERY SEWER) Anatomical Region Laterality Modality Lower Extremity Ultrasound 11/17/2024 12:1 3 PM UPHOLSTERY SEWER Narrative Procedure Note Segundo Clement MD - 11/17/2024 Daryn North MD VASCULAR LAB ORDERAB LES * (ABNORMAL) CULTURE WOUND+GRAM STAIN (11/17/2024 8:38 AM UPHOLSTERY SEWER) Only the most recent of5 resultswithin the time period is included. Culture Light Enterobacter cloacae complex(A) JERILYN 11/19/2024 1:56 PM UPHOLSTERY SEWER [facility] MICROBIOLOGY Gram Stain Heavy Red blood cells 11/19/2024 1:56 PM [facility] MICROBIOLOGY Gram Stain Rare Polymorphonuclear cells 11/19/2024 1:56 PM UPHOLSTERY SEWER [facility] MICROBIOLOGY Gram Stain No organisms seen 025 1:56 PM [facility] MICROBIOLOGY Microbiology [place] / Unknown Collection / Unknown 11/17/2024 8:38 AM UPHOLSTERY SEWER 11/17/2024 8:46 AM UPHOLSTERY SEWER Narrative [facility] MICROBIOLOGY - 11/19/2024 1:56 PM UPHOLSTERY SEWER Enterobacter cloacae, Citrobacter freundii, Klebsiella (formerly Enterobacter) [...] North MD LAB - MICROBIOLOGY O RDERABLES [facility] MICROBIOLOGY [address] [place] [address], [facility] [phone] * CULTURE ANAEROBE (11/17/2024 8:38 AM UPHOLSTERY SEWER) Only the most recent of5 resultswithin the time period is included. Culture No anaerobic organisms isolated JERILYN 11/22/2024 1:20 PM UPHOLSTERY SEWER [facility] MICROBIOLOGY Microbiology [place] / Unknown Collection / Unknown 11/17/2024 8:38 AM UPHOLSTERY SEWER 11/17/2024 8:46 AM UPHOLSTERY SEWER Daryn North MD LAB - MICROBIOLOGY O RDERABLES [facility] MICROBIOLOGY 300 [address] [place] [address], [facility] [phone] * ETT LINE PERFORMABLE (11/17/2024 7:55 AM UPHOLSTERY SEWER) Narrative Sandro Corona DO - 11/17/2024 7:55 AM UPHOLSTERY SEWER Sandro Corona DO 11/17/2024 7:56 AM Endotracheal Tube Placement: Patient Location: OR. Intubation Event Date/Time: 11/17/2024 7:45 AM Procedure: intubation (76811) Procedure Section: Sedation: under general anesthesia. Indications [...] TO MICROSCOPIC NO CULTURE (11/16/2024 1:08 PM UPHOLSTERY SEWER) Color UA Straw Straw, Yellow 11/16/2024 1:29 PM [facility] Clarity UA Clear Clear 11/16/2024 1:29 PM [facility] Specific Headrick UA 1.008 1.005 - 1.030 11/16/2024 1:29 PM [facility] pH UA 5.0 5.0 - 8.0 pH 11/16/2024 1:29 PM [facility] Protein UA Negative Negative 11/16/2024 1:29 PM [facility] Glucose UA Negative Negative 11/16/2024 1:29 PM [facility] Ketone UA Negative Negative 11/16/2024 1:29 PM [facility] Bilirubin UA Negative Negative 11/16/2024 1:29 PM [facility] Blood UA Negative Negative 11/16/2024 1:29 PM [facility] Nitrite UA Negative Negative 11/16/2024 1:29 PM [facility] Leukocyte Esterase Negative Negative 11/16/2024 1:29 PM [facility] Urobilinogen UA Negative Negative mg/dL 11/16/2024 1:29 PM [facility] RBC UA 0-2 None Seen, 0-2, 3-5 /HPF 11/16/2024 1:29 PM [facility] WBC UA 0-5 None Seen, 0-5 /HPF 11/16/2024 1:29 PM [facility] Squamous Epithelial Cells UA 0-2 None Seen, 0-2, 3-5 /HPF 11/16/2024 1:29 PM [facility] Urine URINE SPECIMEN OBTAINED BY CLEAN CATCH PROCEDURE / Unknown Collection / Unknown 11/16/2024 1:08 PM [facility]ER 11/16/2024 1:22 PM [facility]PHOLSTERY SEWER Narrative [facility] - 11/16/2024 1:29 PM UPHOLSTERY SEWER Neftali Read MD LAB - URINALYS IS ORDERABLES [facility] [address] [place] [phone], [facility] [phone] * PROTEIN URINE RANDOM QUANTITATIVE (11/16/2024 1:08 PM UPHOLSTERY SEWER) Protein Urine <7 Not Established mg/dL 11/16/2024 1:43 PM UPHOLSTERY SEWER [facility] Urine URINE SPECIMEN OBTAINED BY CLEAN CATCH PROCEDURE / Unknown Collection / Unknown 11/16/2024 1:08 PM [facility]STERY SEWER 11/16/2024 1:22 PM UPHOLSTERY SEWER Neftali Read MD LAB - URINE CH EMISTRY ORDERABLES Performing Organization Address City/[facility]/ZIP Co de Phone Number [address] [address], [facility] [phone] * SODIUM URINE RANDOM (11/16/2024 1:08 PM UPHOLSTERY SEWER) Sodium Urine 35 Not Established mmol/L 11/16/2024 1:43 PM UPHOLSTERY SEWER [facility] Urine URINE SPECIMEN OBTAINED BY CLEAN CATCH PROCEDURE / Unknown Collection / Unknown 11/16/2024 1:08 PM [facility]PH[facility]STERY SEWER 11/16/2024 1:22 PM [facility]PH[facility]STERY SEWER Neftali Read MD LAB - URINE CH EMISTRY ORDERABLES Performing Organization Address [facility] Co de Phone Number [address] [address], [facility] [phone] * UREA NITROGEN URINE RANDOM (11/16/2024 1:08 PM UPHOLSTERY SEWER) Urea Nitrogen Random Urine 295 Not Established mg/dL 11/16/2024 1:43 PM UPHOLSTERY SEWER [facility] Urine URINE SPECIMEN OBTAINED BY CLEAN CATCH PROCEDURE / Unknown Collection / Unknown 11/16/2024 1:08 PM UPHOLSTERY SEWER 11/16/2024 1:22 PM UPHOLSTERY SEWER Neftali Read MD LAB - URINE CH EMISTRY ORDERABLES Performing Organization Address [facility]/ZIP Co de Phone Number [address] [address], [facility] [phone] * CREATININE URINE RANDOM (11/16/2024 1:08 PM UPHOLSTERY SEWER) Creatinine Urine 44.87 Not Established mg/dL 11/16/2024 1:43 PM UPHOLSTERY SEWER [facility] Urine URINE SPECIMEN OBTAINED BY CLEAN CATCH PROCEDURE / Unknown Collection / Unknown 11/16/2024 1:08 PM UPHOLSTERY SEWER 11/16/2024 1:22 PM UPHOLSTERY SEWER Neftali Read MD LAB - URINE CH EMISTRY ORDERABLES Performing Organization Address City/[facility]/ZIP Co de Phone Number [address] [address], [facility] [phone] * (ABNORMAL) VITAMIN D 25-HYDROXY (11/15/2024 12:56 AM UPHOLSTERY SEWER) Only the most recent of2 resultswithin the time period is included. Vitamin D, 25 Hydroxy 25.9(L) 30.0 - 80.0 ng/mL 11/15/2024 3:11 AM [facility] Comment: The recommendations for 25-Hydroxy Vitamin [...] Lab Venipuncture / Unknown 11/15/2024 12:56 AM [facility]STERY SEWER 11/15/2024 2:11 AM UPHOLSTERY SEWER Sol Leal PA-C LAB - CHEMISTRY ORDERABLES [facility] [address] [place] [phone], [facility] [phone] * FOLATE (11/15/2024 12:56 AM UPHOLSTERY SEWER) Folate 10.0 7.0 - 31.4 ng/mL 11/15/2024 3:11 AM [facility] Blood BLOOD SPECIMEN / Unknown Lab Venipuncture / Unknown 11/15/2024 12:56 AM [facility]STERY SEWER 11/15/2024 2:11 AM UPHOLSTERY SEWER Sol Deterding PA-C LAB - CHEMISTRY ORDERABLES [address] [address], [place] [phone] * VITAMIN B12 (11/15/2024 12:56 AM UPHOLSTERY SEWER) Vitamin B12 583 213 - 816 pg/mL 11/15/2024 3:11 AM [facility] Blood BLOOD SPECIMEN / Unknown Lab Venipuncture / Unknown 11/15/2024 12:56 AM UPHOLSTERY SEWER 11/15/2024 2:11 AM UPHOLSTERY SEWER Sol Deterding PA-C LAB - CHEMISTRY ORDERABLES Performing Organization Address [facility] Co de Phone Number [address] [address], [place] [phone] * (ABNORMAL) IRON + TRANSFERRIN PANEL (11/15/2024 12:56 AM UPHOLSTERY SEWER) Iron 19(L) 40 - 150 ug/dL 11/15/2024 3:01 AM [facility] Transferrin 151(L) 174 - 382 mg/dL 11/15/2024 3:01 AM [facility] Transferrin Saturation % 10(L) 16 - 50 % 11/15/2024 3:01 AM [facility] TIBC Calculated 189(L) 240 - 450 ug/dL 11/15/2024 3:01 AM [facility] Blood BLOOD SPECIMEN / Unknown Lab Venipuncture / Unknown 11/15/2024 12:56 AM UPHOLSTERY SEWER 11/15/2024 2:07 AM UPHOLSTERY SEWER Sol Deterding PA-C LAB - CHEMISTRY ORDERABLES Performing Organization Address City/[facility]/ZIP Co de Phone Number [address] [address], [place] [phone] * (ABNORMAL) FERRITIN (11/15/2024 12:56 AM UPHOLSTERY SEWER) Ferritin 668(H) 13 - 204 ng/mL 11/15/2024 3:19 AM UPHOLSTERY SEWER [facility] Blood BLOOD SPECIMEN / Unknown Lab Venipuncture / Unknown 11/15/2024 12:56 AM UPHOLSTERY SEWER 11/15/2024 2:07 AM UPHOLSTERY SEWER Sol Leal PA-C LAB - CHEMISTRY ORDERABLES Performing Organization Address City/[facility]/ZIP Co de Phone Number [address] [address], [place] [phone] * HEMOGLOBIN A1C (11/14/2024 4:18 PM UPHOLSTERY SEWER) Hemoglobin A1c 5.0 <=5.6 % 11/14/2024 5:30 PM [facility] Estimated Average Glucose 97 mg/dL 11/14/2024 5:30 PM [facility] Comment: HbA1c Interpretation: Normal : < 5.7% Pre-diabetes: 5.7-6.4% Diabetes: Equal to or greater than 6.5% Test results diagnostic of diabetes should be repeated for confirmation. Treatment target values recommended by ADA and other clinical organizations should be used to evaluate metabolic control in patients. Reference: [place] [employer], Standards of Care in Diabetes -2020 In patients 70 years and older consider HbA1c target range of 7.0-7.5% (Reference: Samy Cunningham, et al. JAMDA. 2012) The Sebia assay for the measurement of HbA1c is a National Glycohemoglobin Standardization Program (NGSP) certified method. Blood BLOOD SPECIMEN / Unknown Lab Venipuncture / Unknown 11/14/2024 4:18 PM UPHOLSTERY SEWER 11/14/2024 4:33 PM UPHOLSTERY SEWER Daryn North MD LAB - CHEMISTRY KONG JENSEN Performing Organization Address City/[facility]/ZIP Co de Phone Number [address] [address], [place] [phone] * ETT LINE PERFORMABLE (11/14/2024 7:57 AM UPHOLSTERY SEWER) Narrative Mauro Miguel Anes Asst - 11/14/2024 7:57 AM UPHOLSTERY SEWER Mauro Miguel Anes Asst 11/14/2024 7:57 AM Endotracheal Tube Placement: Patient Location: OR. Intubation Event Date/Time: 11/14/2024 7:33 AM Procedure: intubation ([id number]) Procedure Section: Sedation: IV sedation. Indications for [...] CBC W AUTO DIFFERENTIAL (11/14/2024 6:47 AM [facility]) Only the most recent of2 resultswithin the time period is included. WBC 7.3 4.0 - 10.7 x10E9/L 11/14/2024 7:45 AM [facility] RBC Count 3.30(L) 3.90 - 5.20 x10E12/L 11/14/2024 7:45 AM [facility] Hemoglobin 8.9(L) 11.9 - 15.8 g/dL 11/14/2024 7:45 AM [facility] Hematocrit 27.8(L) 34.8 - 46.1 % 11/14/2024 7:45 AM [facility] MCV 84.2 80.0 - 98.0 fL 11/14/2024 7:45 AM [facility] MCH 27.0 26.7 - 33.6 pg 11/14/2024 7:45 [facility] 32.[facility] 31.7 - 36.3 g/dL 11/14/2024 7:45 AM [facility] RDW-CV 14.9(H) 11.3 - 14.8 % 11/14/2024 7:45 AM [facility] Platelet Count 11/14/2024 7:45 AM [facility] Comment:Platelets clumped on slide but appears adequate. Recommend repeat with a sodium citrate blue top tube. MPV 11/14/2024 7:45 AM [facility] Comment:Unable to report Neutrophil % 73.6 41.0 - 74.0 % 11/14/2024 7:45 AM [facility] Lymphocyte % 16.6(L) 17.0 - 47.0 % 11/14/2024 7:45 AM [facility] Monocyte % 8.4 3.0 - 11.0 % 11/14/2024 7:45 AM [facility] Eosinophil % 0.8 0.0 - 7.0 % 11/14/2024 7:45 AM [facility] Basophil % 0.3 0.0 - 1.6 % 11/14/2024 7:45 AM [facility] Immature Granulocytes % 0.3 0.0 - 1.0 % 11/14/2024 7:45 AM [facility] Neutrophil Absolute 5.34 1.60 - 7.50 x10E9/L 11/14/2024 7:45 AM [facility] Lymphocyte Absolute 1.20 1.00 - 4.40 x10E9/L 11/14/2024 7:45 AM [facility] Monocyte Absolute 0.61 0.15 - 1.00 x10E9/L 11/14/2024 7:45 AM [facility] Eosinophil Absolute 0.06 0.00 - 0.60 x10E9/L 11/14/2024 7:45 AM [facility] Basophil Absolute 0.02 0.00 - 0.13 x10E9/L 11/14/2024 7:45 AM [facility] Blood BLOOD SPECIMEN / Unknown Venipuncture / Unknown 11/14/2024 6:47 AM UPH[facility]STERY SEWER 11/14/2024 6:54 AM UPHOLSTERY SEWER Flaco Rebollar MD LAB - HEMATOLOGY ORD ERABLES [place] [place] [address], [facility] [phone] * XR Wrist Left 3Vw or More (11/12/2024 9:24 AM UPHOLSTERY SEWER) Anatomical Region Laterality Modality Wrist / Hand Radiographic Christa ging 11/12/2024 9:34 AM UPHOLSTERY SEWER Impressions 11/12/2024 9:36 AM UPHOLSTERY SEWER IMPRESSION: Mildly displaced distal radial fracture. > Interpreting Provider: Yefri Stafford MD on 11/12/2024 9:36 AM Narrative 11/12/2024 9:36 AM UPHOLSTERY SEWER PROCEDURE: XR WRIST LEFT 3VW OR MORE [...] * [place] [facility] (10/10/2024 11:01 AM UPHOLSTERY SEWER) Only the most recent of3 resultswithin the time period is included. Narrative [facility] - 10/10/2024 11:02 AM UPHOLSTERY SEWER Fluoroscopy was used for this exam in the OR. Please see the Operative report. Daryn North MD FLUOROSCOPY ORDERABL ES [facility] * IV PLACEMENT PERFORMABLE (10/10/2024 8:22 AM UPHOLSTERY SEWER) Narrative Karol Dunn APRN-CRNA - 10/10/2024 8:22 AM UPHOLSTERY SEWER Karol Dunn APRN-CRNA 10/10/2024 8:23 AM Peripheral IV Line Placement: Patient Location: OR Procedure: IV start ([id number]) Procedure Section: Skin Prep: alcohol. Orientation: left Location: forearm Catheter Gauge: 18 Number of Attempts: 1. Procedure Tolerance: performed while patient under general anesthesia. Staff Section Anesthesia Provider: Karol Dunn APRN-CRNA, Performed the procedure Joey Oneal MD GENERAL ANESTHESIA O RDERABLES * ETT LINE PERFORMABLE (10/10/2024 8:22 AM UPHOLSTERY SEWER) Narrative Karol Dunn APRN-CRNA - 10/10/2024 8:22 AM UPHOLSTERY SEWER Karol Dunn APRN-CRNA 10/10/2024 8:22 AM Endotracheal Tube Placement: Patient Location: OR. Intubation Event Date/Time: 10/10/2024 7:43 AM Procedure: intubation ([id number]) Procedure Section: Sedation: under general anesthesia. Indications [...] AM. Staff Section Anesthesia Provider: Karol Dunn APRN-PROJECTION TECHNICIAN, Performed the procedure Joey Oneal MD GENERAL ANESTHESIA O RDERABLES * XR Knee Right 2Vw or Less (09/21/2024 11:00 AM UPHOLSTERY SEWER) Only the most recent of2 resultswithin the time period is included. Anatomical Region Laterality Modality Lower Extremity Digital Radiogra phy 09/21/2024 7:17 PM UPHOLSTERY SEWER Impressions 09/21/2024 7:18 PM UPHOLSTERY SEWER IMPRESSION: Comminuted fracture of the proximal tibia with interval placement of traction pin in the distal femoral diaphysis. > Interpreting Provider: Natalio Nam on 09/21/2024 7:18 PM Narrative 09/21/2024 7:18 PM UPHOLSTERY SEWER PROCEDURE: XR KNEE RIGHT 2VW OR LESS [...] in the distal femoral diaphysis. Procedure Note Ntaalio Nam MD - 09/21/2024 PROCEDURE: XR KNEE [...] * IV PLACEMENT PERFORMABLE (09/19/2024 4:47 PM UPHOLSTERY SEWER) Karol Cat APRN-CRNA - 09/19/2024 4:47 PM UPHOLSTERY SEWER Karol Dunn APRN-CRNA 09/19/2024 4:47 PM Peripheral IV Line Placement: Patient Location: OR Insertion Time: 09/19/2024 4:39 PM Procedure: IV start ([id number]) Procedure Section: Skin Prep: alcohol. Orientation: left Location: hand Catheter Gauge: 20 Number of Attempts: 1. Procedure Tolerance: performed while patient under general anesthesia. Staff Section Anesthesia Provider: Karol Dunn APRN-CRNA, Performed the procedure Chelsey Minaya MD GENERAL ANESTHESIA O MECCA * ETT LINE PERFORMABLE (09/19/2024 4:46 PM UPHOLSTERY SEWER) Karol Cat APRN-CRNA - 09/19/2024 4:46 PM UPHOLSTERY SEWER Karol Dunn APRN-CRNA 09/19/2024 4:47 PM Endotracheal Tube Placement: Patient Location: OR. Intubation Event Date/Time: 09/19/2024 4:23 PM Procedure: intubation ([id number]) Procedure Section: Sedation: under general anesthesia. Indications [...] PM. Staff Section Anesthesia Provider: Karol Dunn, CONNIE-PROJECTION TECHNICIAN, Performed the procedure Chelsey Minaya MD GENERAL ANESTHESIA O RDERABLES * CT Tibia Fibula Right Wo Cont (09/19/2024 1:14 AM UPHOLSTERY SEWER) Anatomical Region Laterality Modality Lower Extremity Computed Tomogra phy 09/19/2024 1:28 AM UPHOLSTERY SEWER Impressions 09/19/2024 1:47 AM UPHOLSTERY SEWER IMPRESSION: 1.Acute comminuted and moderately displaced fracture of the proximal tibia with intra-articular extension involving the medial and lateral tibial plateaus. 2.Soft tissue swelling about the knee and proximal lower leg with small volume hemarthrosis. Report dictated by Valentín Zheng MD (president and chief operating officer). I, Alejandro Hung MD have personally reviewed and interpreted this examination/study. > Interpreting Provider: Alejandro Hung MD on 09/19/2024 1:47 AM Narrative 09/19/2024 1:47 AM [facility]PH[facility]STERY SEWER PROCEDURE: CT KNEE RIGHT WO CONTRAST, CT TIBIA FIBULA RIGHT WO CONT, DATE/TIME OF EXAM: 09/19/2024 1:15 AM, LOCATION [facility] INDICATION: M79.604: Right leg pain ADDITIONAL CLINICAL INFORMATION: Ordering Provider Reason For Exam: eval fracture (accession [id number]), fracture (accession [id number]) COMPARISON: Right knee and right tibia-fibula radiographs [...] DATE/TIME OF EXAM: 09/19/2024 1:15 AM, LOCATION [facility] INDICATION: M79.604: Right leg pain ADDITIONAL CLINICAL INFORMATION: Ordering Provider Reason For Exam: eval fracture (accession [id number]), fracture (accession [id number]) COMPARISON: Right knee and right tibia-fibula radiographs [...] hemarthrosis. Report dictated by Valentín Zheng MD (president and chief operating officer). I, Alejandro Hung MD have personally reviewed and interpreted this examination/study. > Interpreting Provider: Alejandro Hung MD on 09/19/2024 1:47 AM Adeola Carreon MD CT ORDERABLES * CT Knee Right Wo Contrast (09/19/2024 1:14 AM UPHOLSTERY SEWER) Anatomical Region Laterality Modality Lower Extremity Computed Tomogra phy 09/19/2024 1:28 AM UPHOLSTERY SEWER Impressions 09/19/2024 1:47 AM UPHOLSTERY SEWER IMPRESSION: 1.Acute comminuted and moderately displaced fracture of the proximal tibia with intra-articular extension involving the medial and lateral tibial plateaus. 2.Soft tissue swelling about the knee and proximal lower leg with small volume hemarthrosis. Report dictated by Valentín Zheng MD (president and chief operating officer). I, Alejandro Hung MD have personally reviewed and interpreted this examination/study. > Interpreting Provider: Alejandro Hung MD on 09/19/2024 1:47 AM Narrative 09/19/2024 1:47 AM [facility]ER PROCEDURE: CT KNEE RIGHT WO CONTRAST, CT TIBIA FIBULA RIGHT WO CONT, DATE/TIME OF EXAM: 09/19/2024 1:15 AM, LOCATION [facility] INDICATION: M79.604: Right leg pain ADDITIONAL CLINICAL INFORMATION: Ordering Provider Reason For Exam: eval fracture (accession [id number]), fracture (accession [id number]) COMPARISON: Right knee and right tibia-fibula radiographs [...] DATE/TIME OF EXAM: 09/19/2024 1:15 AM, LOCATION [facility] INDICATION: M79.604: Right leg pain ADDITIONAL CLINICAL INFORMATION: Ordering Provider Reason For Exam: eval fracture (accession [id number]), fracture (accession [id number]) COMPARISON: Right knee and right tibia-fibula radiographs [...] hemarthrosis. Report dictated by Valentín Zheng MD (president and chief operating officer). I, Alejandro Hung MD have personally reviewed and interpreted this examination/study. > Interpreting Provider: Alejandro Hung MD on 09/19/2024 1:47 AM Adeola Carreon MD CT ORDERABLES * XR Foot Right 3Vw or More (09/19/2024 12:45 AM UPHOLSTERY SEWER) Anatomical Region Laterality Modality Ankle / Foot Digital Radiogra phy 09/19/2024 1:25 AM UPHOLSTERY SEWER Narrative 09/19/2024 9:28 AM [facility]PHOLSTERY SEWER PROCEDURE: XR FOOT RIGHT 3VW OR MORE, DATE/TIME OF EXAM: 09/19/2024 12:45 AM, LOCATION [facility] INDICATION: M79.604: Right leg pain ADDITIONAL [...] MORE, DATE/TIME OF EXAM: 2:45 AM, LOCATION [facility] INDICATION: M79.604: Right leg pain ADDITIONAL [...] LIMITED Exam Date: 07/01/2024 9:47 AM Location: [facility] Indication: R10.10: Upper abdominal pain, unspecified [...] LIMITED Exam Date: 07/01/2024 9:47 AM Location: [facility] Indication: R10.10: Upper abdominal pain, unspecified [...] CDT) Case Report Surgical Pathology Report Case: [id number] Authorizing Provider: Balwinder Goncalves MD Collected: 05/30/2024 09:55 AM Ordering Location: [facility] Received: 05/30/2024 11:05 AM Pathologist: Joey Solorzano MD Specimens: A) - Gastric, gastric bx R/O H pylori B) - Esophagus, distal esophageal bx R/O EOE C) - Esophagus, proximal esophageal bx R/O EOE D) - Polyp Cecum, cecal polyp x 2 06/02/2024 10:55 AM CDT [facility] Final Diagnosis Stomach, biopsy [...] Tubular adenoma(s), fragmented 06/02/2024 10:55 AM CDT [facility] Microscopic Description and Comment Microscopic examination substantiates the final diagnosis. 06/02/2024 10:55 AM CDT [facility] Clinical History The patient [...] biopsies were taken. 06/02/2024 10:55 AM CDT [facility] Gross Description The requisition [...] labeled D1. RB 06/02/2024 10:55 AM T [facility] Pathologist Location at [facility] 06/02/2024 10:55 AM T [facility] Disclaimer The performance characteristics of all immunohistochemical and indirect immunofluorescence stains (if any) cited in this report were determined by the Histopathology Laboratory of [facility]. Some of these tests were developed by [...] attending (teaching) pathologist. 06/02/2024 10:55 AM CDT [facility] Embedded Images 06/02/2024 10:55 AM T [facility] Biopsy, NOS GASTRIC CONTENTS [...] - PATHOLOGY/CYTO LOGY ORDERABLES Performing Organization Address City/State/[facility] Co de Phone Number [facility] [address] [phone] * EGD (05/30/2024 9:44 AM CDT) Report [...] non-kay portions. Procedure Code(s): --- Professional --- 89036, Esophagogastroduo denoscopy, flexible, transoral; with biopsy, single or multiple Diagnosis Code(s): --- Professional --- K44.9, Diaphragmatic hernia without obstruction or gangrene R13.10, Dysphagia, unspecified R12, Heartburn CPT copyright 2021 [place] [employer]. All rights reserved. The codes documented in this report are preliminary and upon oncology specialist review may be revised to meet current compliance requirements. Balwinder Goncalves MD 05/30/2024 10:37:46 AM This report has been signed electronically. Note Initiated On: 05/30/2024 9:44 AM Number of Addenda: [address] [facility] 05/30/2024 9:44 AM CDT Balwinder Goncalves MD GI PROCEDURE ORDERAB LES [facility] [place] * ENDOSCOPY, COLON, SCREENING (05/30/2024 9:42 AM [...] the patient. Procedure Code(s): --- Professional --- 34156, Colonoscopy, flexible; with removal of tumor(s), polyp(s), or other lesion(s) by snare technique 33299, 59, Colonoscopy, flexible; with biopsy, single or multiple Diagnosis Code(s): --- Professional --- Z12.11, Encounter for screening for malignant neoplasm of colon D12.0, Benign neoplasm of cecum CPT copyright 2021 [place] [employer]. All rights reserved. The codes documented in this report are preliminary and upon oncology specialist review may be revised to meet current compliance requirements. Balwinder Goncalves MD 05/30/2024 10:32:28 AM This report has been signed electronically. Note Initiated On: 05/30/2024 9:42 AM Number of Addenda: [address] [employer] 05/30/2024 9:42 AM CDT Balwinder Goncalves MD GI PROCEDURE ORDERAB LES [facility] [employer] * XR FOOT LEFT WT BEARING [...] Tube Placement: Patient Location: OR. Procedure: intubation (72439). Procedure Section: Sedation: under general anesthesia. Indications [...] No. Staff Section Anesthesia Provider: Schuyler Melgar APRN-PROJECTION TECHNICIAN, Performed the procedure Additional Comments: DVOI x [...] O POS 03/15/2021 8:2 9 AM CDT [facility] Blood Bank BLOOD SPECIMEN / Unknown Lab Venipuncture / Unknown 03/15/2021 7:40 AM CDT 03/15/2021 7:40 AM CDT Sukumar Magaña DO LAB - BLOOD BANK ORD ERABLES [facility] [address] [place] [address], [facility] [phone] Care Teams Supplier Quality Relationship Specialty Start Date End Date Geovanni Rodriguez DO [address] [place] [address] PCP - General Internal Medicine 09/19/24
--- OUTSIDE RECORDS SUMMARY | 2024-11-27 15:03 | XMS_ITS | Clinical Summary ---
Author Organization [facility] [address] [facility] [address] Address [address] [place] [phone] Care Team Providers Care Quill Buncher And Sorter Name Role Phone ChatoniteshSoo rosadomigdalia ALMEIDA Unavailable Unavailable Celestino Parra MD Unavailable [phone] Fan Edwards Unavailable Unavailable Geovanni Rodriguez DO Primary Care Provider [phone] Allergies Active Allergy Reactions Criticality Noted Date [...] on file Legal Sex Female 2:46 AM [employer] Gender Identity Not on file Sexual Orientation [...] Recently Relevant to Health [place] [address] [facility] CHOICE PLUS [facility] HMO/PPO Address: [address] [address] [place] [address] MEDICARE [facility] Care Teams Quill Buncher And Sorter Relationship Specialty Start Date End Date Geovanni Rodriguez DO [address] [facility] [address] [place] [address] PCP - General Internal Medicine 07/08/24 Erika Lopes OT Occupational Therapist Occupational Therapy 06/10/18 Celestino Parra MD Surgeon Vascular Surgery 02/19/19 Fan Edwards Referring Physician Gastroenterology 02/19/19
--- OUTSIDE RECORDS SUMMARY | 2024-11-27 15:04 | XMS_ITS | Encounter Summary ---
Author Organization [facility] Address [address] [facility] [place] [address] Care Team Providers Care Row Boss Name Role Phone Geovanni Rodriguez DO Primary Care Provider [phone] Encounter Details Date Type Department Care Team (Late st Contact Info) Description 11/26/2024 Orders Only [facility] - Orthopedics [address] [place] [address], [place] [address] Daryn North MD [address] [place] [address] [place] [address] Closed fracture of lateral portion of right [...] Recorded Patient Health Questionnaire-2 Score 1 11/26/2024 [facility] of Occupat ional Health - Occupational Stress [...] any time in the past 12 m [facility], were you homeless or living in a [...] st Contact Info) Description 12/02/2024 1:40 PM PUBLISHER ASSISTANT Office Visit [facility] - Rheumatology [address] [place] [phone] Meryl Cuenca MD [address] [place] [address] 2L [place] [phone] 12/03/2024 10:15 AM PUBLISHER ASSISTANT Office Visit [facility]oped[facility] [address] [place] [address] [place] [phone] Daryn North MD [address] [place] [address] DIV [place] [address] 12/25/2024 10:00 AM CDT [facility] [address] [place] [phone] Missy Vogel PA-C [address] [place] [address] 01/15/2025 10:00 AM CDT Office Visit [facility] - GI [address] [place] [phone] documented as of this encounter Goals Goal Patient Goal Type Associated Problems Recent Progress Patient-Stated? Author Mobility General On track( 025 10:37 AM PUBLISHER ASSISTANT) Aayka Siegel, RN Note: Expected end date: 10/14/21 The goal is to maintain or improve your mobility at the optimum level for you. Interventions: documented as of this encounter Results * XR Tibia Fibula Right 2Vw (11/26/2024 9:34 AM PUBLISHER ASSISTANT) Anatomical Region Laterality Modality Lower Extremity Computed Radiogr aphy 11/26/2024 10:0 0 AM PUBLISHER ASSISTANT Impressions 11/26/2024 10:29 AM PUBLISHER ASSISTANT IMPRESSION: Redemonstration of a proximal tibial fracture fixation and distal tibiofibular syndesmotic fixation, unchanged in alignment. Interval appearance of multiple radiopaque findings within the lateral aspect of the distal thigh and medial aspect of the proximal leg soft tissue, likely antibiotic beads. Report dictated by Luciano Woods MD, (Team Primary Care Physician). I, Yefri Groves MD have personally reviewed and interpreted this examination/study. > Interpreting Provider: Yefri Groves MD on 11/26/2024 10:29 AM Narrative 11/26/2024 10:29 AM PUBLISHER ASSISTANT PROCEDURE: XR TIBIA FIBULA RIGHT 2VW, DATE/TIME OF EXAM: 11/26/2024 9:34 AM, LOCATION [facility] INDICATION: S82.121A: Closed fracture of [...] 2VW, DATE/TIME OF EXAM: 59:34 AM, LOCATION [facility] INDICATION: S82.121A: Closed fracture of [...] beads. Report dictated by Luciano Woods MD, (Team Primary Care Physician). I, Yefri Groves MD have personally reviewed [...] encounter documented in this encounter Care Teams Row Boss Relationship Specialty Start Date End Date Geovanni Rodriguez DO [address] [place] [phone] PCP - General Internal Medicine 09/19/24 documented as of this encounter
--- OUTSIDE RECORDS SUMMARY | 2024-11-27 15:04 | XMS_ITS | Encounter Summary ---
Author Organization [facility] Address [address] [place] [address] Care Team Providers Care Food Service Hotel Runner Name Role Phone Geovanni Rodriguez Nadja GARCIA Primary Care Provider [phone] Reason for Visit * Reason Onset Date Comments Follow-up 11/25/2024 Encounter Details Date Type Department Care Team (Late st Contact Info) Description 11/25/2024 Telephone [facility] - Infectious Disease [address] [facility], [place] [phone] Missy Vogel PA-C [address] [place] [address] Follow-up Social History Tobacco Use Types Packs/Day [...] Recorded Patient Health Questionnaire-2 Score 1 11/26/2024 [facility]at ional Health - Occupational Stress [...] any time in the past 12 m [facility], were you homeless or living in a senior care (including now)? No 11/15/2024 Sex and Gender [...] to be drawn before line is pulled. R THREAT ANALYST documented in this encounter Plan of Treatment Upcoming Encounters Date Type Department Care Team (Late st Contact Info) Description 12/02/2024 1:40 PM CYBER THREAT ANALYST Office Visit [facility] - Rheumatology [address] [place] [phone] Meryl Cuenca MD [address] [place] [address] [place] [phone] 12/03/2024 10:15 AM CYBER THREAT ANALYST [facility] [address] [place] [phone] Daryn North MD [address] [place] [address] DIV OF ORTHOPEDIC [place] [address] 12/25/2024 10:00 AM CDT Office Visit [facility] - Infectious Disease [address] [place] [phone] Missy Vogel PA-C [address] [place] [address] 01/15/2025 10:00 AM CDT Office Visit [facility] - GI [address] [place] [phone] documented as of this encounter Goals Goal Patient Goal Type Associated Problems Recent Progress Patient-Stated? Author Mobility General On track( 025 10:37 AM CYBER THREAT ANALYST) Ayaka Siegel RN Note: Expected end date: 10/14/21 The goal is to maintain or improve your mobility at the optimum level for you. Interventions: documented as of this encounter Visit Diagnoses Not on filedocumented in this encounter Care Teams Food Service Hotel Runner Relationship Specialty Start Date End Date Geovanni Rodriguez DO [address] [place] [phone] PCP - General Internal Medicine 09/19/24 documented as of this encounter
--- OUTSIDE RECORDS SUMMARY | 2024-11-27 15:04 | XMS_ITS | Continuity of Care Document ---
Author Organization [facility] Address [address] [place] [address] Phone Care Team Providers Care Regional Sales Trainer Name Role Phone Remedios Lux Unavailable Unavailable Advance Directives Directive Yes / No Effective Date File Name No Information Encounters Encounter Description Practice Location Reason(s) For Visit Diagnoses Date Provider Providers Copied on Encounter [facility], [address] [place] [address] [address], [place], [place], [id number], [place] tel:[phone] [facility] No Information Dec-3 1-200 6 Maci Whittaker. [address] , [place] [address], [place], [address], [place]. tel:[phone] Referring Provider: Harrison Harding MD, [address] [place], [address]. tel:[phone] Family History Family Member Type Diagnosis Age At Onset No Information Payers Payer name Insurance type Covered constitution party ID Authoriza tion(s) No Information Social History [...]
--- OUTSIDE RECORDS SUMMARY | 2024-11-27 15:04 | XMS_ITS | Encounter Summary ---
Author Organization [facility] Address [address] [place] [address] Care Team Providers Care Mat Sewer Name Role Phone Geovanni Rodriguez Nadja GARCIA Primary Care Provider [phone] Encounter Details Date Type Department Care Team (Late st Contact Info) Description 11/26/2024 9:24 AM HOOK UP - 11/26/2024 11:59 PM [facility] Hospital Encounter [facility] DIAGNOSTIC RAD [facility] [address] [facility] [place] [address] Daryn North MD [facility] [place] [address] Discharge Disposition: Home or Self Care Social [...] Recorded Patient Health Questionnaire-2 Score 1 11/26/2024 [facility] of Occupat ional Health - Occupational [...] any time in the past 12 m [facility], were you homeless or living in [...] st Contact Info) Description 12/02/2024 1:40 PM HOOK UP [facility] [address] [place] [phone] Meryl Cuenca MD [address] [place] [address] 2L [place] [phone] 12/03/2024 10:15 AM HOOK UP Office Visit [facility] [address] [place] [address], [place] [phone] Daryn North MD [address] [place] [address] [place] [address] 12/25/2024 10:00 AM CDT Office Visit [facility] - Infectious Disease [address] [place] [address], [place] [phone] Missy Vogel PA-C [address] [place] [address] 01/15/2025 10:00 AM CDT Office Visit [facility] - GI [address] [place] [address], [place] [phone] documented as of this encounter Goals Goal Patient Goal Type Associated Problems Recent Progress Patient-Stated? Author Mobility General On track( 025 10:37 AM HOOK UP) Ayaka Siegel, RN Note: Expected end date: 10/14/21 The goal is to maintain or improve your mobility at the optimum level for you. Interventions: documented as of this encounter Procedures Procedure Name Priority Date/Time Associated Diagnosis Comments XR TIBIA FIBULA RIGHT 2VW Routine 11/26/2024 9:34 AM HOOK UP Closed fracture of lateral portion of right tibial plateau, initial encounter documented in this encounter Results * XR Tibia Fibula Right 2Vw (11/26/2024 9:34 AM HOOK UP) Anatomical Region Laterality Modality Lower Extremity Computed Radiogr aphy 11/26/2024 10:0 0 AM HOOK UP Impressions 11/26/2024 10:29 AM HOOK UP IMPRESSION: Redemonstration of a proximal tibial fracture fixation and distal tibiofibular syndesmotic fixation, unchanged in alignment. Interval appearance of multiple radiopaque findings within the lateral aspect of the distal thigh and medial aspect of the proximal leg soft tissue, likely antibiotic beads. Report dictated by Luciano Woods MD, (Client Evaluator). I, Yefri Groves MD have personally reviewed and interpreted this examination/study. > Interpreting Provider: Yefri Groves MD on 11/26/2024 10:29 AM Narrative 11/26/2024 10:29 AM HOOK UP PROCEDURE: XR TIBIA FIBULA RIGHT 2VW, DATE/TIME OF EXAM: 11/26/2024 9:34 AM, LOCATION [facility] INDICATION: S82.121A: Closed fracture of lateral portion [...] 2VW, DATE/TIME OF EXAM: 59:34 AM, LOCATION [facility] INDICATION: S82.121A: Closed fracture of lateral portion [...] beads. Report dictated by Luciano Woods MD, (Client Evaluator). I, Yefri Groves MD have personally reviewed and interpreted this examination/study. > Interpreting Provider: Yefri Groves MD on 11/26/2024 10:29 AM Daryn North MD DIAGNOSTIC IMAGING O [facility]LES documented in this encounter Visit Diagnoses Diagnosis Closed fracture of lateral portion of right tibial plateau, initial encounter documented in this encounter Care Teams Mat Sewer Relationship Specialty Start Date End Date Geovanni Rodriguez DO [address] [place] [address] PCP - General Internal Medicine 09/19/24 documented as of this encounter
--- OUTSIDE RECORDS SUMMARY | 2024-11-27 15:04 | XMS_ITS | Clinical Summary ---
Author Organization [facility] Address [address] [place] [address] Care Team Providers Care Panel Laminator Name Role Phone Michael Geovanni Saez DO Primary Care Provider Source Comments [facility],non-owned Affiliates and Associated Physician Practices is amultiple site organization consisting of ambulatory clinics and hospital sitesin [place], [place], [place] and [place]. This disclosure is being madepursuant to the Care Everywhere program and may not contain all information available regarding this patient. Last updated 18.[facility] Allergies Active Allergy Reactions Criticality Noted [...] 11/27/2024 Telephone [facility] - Allergy [address] [place] [phone] Olga Maguire RN Follow-up 11/26/2024 10:30 AM RUBBER ATTACHER Office Visit [facility] - Orthopedics [address] [place] [phone] Daryn North MD Surgical site infection 11/26/2024 9:24 AM RUBBER ATTACHER - 11/26/2024 11:59 PM RUBBER ATTACHER Hospital Encounter [facility] DIAGNOSTIC RAD [facility] [address] [place] [address] Daryn North MD Discharge Disposition: Home or Self Care 11/26/2024 8:00 AM RUBBER ATTACHER Office Visit Transitional Care at [address] [phone] Nikhil Godinez III, MD Surgical site infection (Primary Dx); Elevated LFTs 11/26/2024 Orders Only [facility] - Orthopedics [address] [place] [phone] Daryn North MD Closed fracture of lateral portion of right tibial plateau, initial encounter 11/26/2024 Travel 11/25/2024 Telephone [facility] - Infectious Disease [address] [place] [address] Missy Vogel PA-C Follow-up 11/25/2024 Telephone Transitional Care at [address] [phone] Candy Figueroa MA Reminder Call 11/21/2024 Telephone Transitional Care at [address] [phone] Nadia Love, machinist class b 11/17/2024 7:26 AM RUBBER ATTACHER Anesthesia Event [facility] [address] [place] [phone] Annie Carter MD Chase, Charles C, Anes Asst 11/17/2024 7:05 AM RUBBER ATTACHER - 11/17/2024 9:31 AM RUBBER ATTACHER Surgery [facility] [address] [place] [phone] Daryn North MD IRRIGATION/DEBRIDEM ENT RIGHT KNEE WOUND, ANTIBIOTIC BEAD PLACEMENT, INCISIONAL PREVENA PLACEMENT, WOUND CLOSURE 11/14/2024 7:23 AM RUBBER ATTACHER Anesthesia Event [facility] [address] [place] [phone] Kin Aden MD Keeven, Grace C, LIBRARY CLERK-ELECTRICAL ASSISTANT 11/14/2024 7:05 AM RUBBER ATTACHER - 11/14/2024 8:50 AM RUBBER ATTACHER Surgery [facility] [address] [place] [phone] Daryn North MD Irrigation and debridement of right knee surgical site infection with wound vac placement 11/14/2024 5:27 AM RUBBER ATTACHER - 11/20/2024 6:39 PM RUBBER ATTACHER Hospital Encounter [facility] [address] [place] [address] Daryn North MD Surgery General Discharge Disposition: Home Health Care [facility] 11/12/2024 9:17 AM RUBBER ATTACHER - 11/12/2024 11:59 PM RUBBER ATTACHER Hospital Encounter [facility] DIAGNOSTIC RAD [facility] [address] [place] [address] Daryn North MD Discharge Disposition: Home or Self Care 11/12/2024 9:17 AM RUBBER ATTACHER - 11/12/2024 11:59 PM RUBBER ATTACHER Hospital Encounter [facility] DIAGNOSTIC RAD [facility] [address] [place] [address] Daryn North MD Discharge Disposition: Home or Self Care 11/12/2024 9:00 AM RUBBER ATTACHER Office [facility] - Orthopedics [address] [place] [phone] Daryn North MD Pate, Katherine M, PADesireeC Closed fracture of lateral portion of right tibial plateau, initial encounter (Primary Dx); Surgical site infection; Closed nondisplaced fracture of styloid process of left radius, initial encounter 11/12/2024 Orders Only [facility] - Orthopedics [address] [place] [phone] Daryn North MD Closed fracture of lateral portion of right tibial plateau, initial encounter ; Closed fracture of left wrist, initial encounter 11/12/2024 Travel 10/27/2024 12:30 PM RUBBER ATTACHER Office Visit [facility] - Orthopedics [address] [place] [phone] Adeola Mendez MD Closed fracture of lateral portion of right tibial plateau, initial encounter (Primary Dx) 10/27/2024 Travel 10/22/2024 12:30 PM RUBBER ATTACHER [facility] [address] [place] [phone] Daryn North MD Closed bicondylar fracture of right tibial plateau (Primary Dx) 10/22/2024 11:17 AM RUBBER ATTACHER - 10/22/2024 11:59 PM RUBBER ATTACHER Hospital Encounter [facility] DIAGNOSTIC RAD [facility] [address] [place] [address] Daryn North MD Discharge Disposition: Home or Self Care 10/22/2024 Travel 10/22/2024 Orders Only [facility] - Orthopedics [address] [place] [phone] Daryn North MD Closed fracture of lateral portion of right tibial plateau, initial encounter 10/16/2024 Transitional Care [facility] - Care Coordination [address] [place] [phone] Liza Steinberg, machinist class b 10/14/2024 Transitional Care [facility] - Care Coordination [address] [place] [address] Liza Steinberg, machinist class b 10/10/2024 7:27 AM RUBBER ATTACHER Anesthesia Event [facility] [address] [place] [address] Joey Oneal MD Osterloh, Joan Frances, LIBRARY CLERK-DOUGHNUT MACHINE OPERATOR HELPER 10/10/2024 7:15 AM RUBBER ATTACHER - 10/10/2024 10:45 AM RUBBER ATTACHER Surgery [facility] [address] [place] [phone] Daryn North MD Open reduction internal fixation of right bicondylar tibial plateau fracture, repair of lateral meniscus right, removal of external fixator right 10/10/2024 5:43 AM RUBBER ATTACHER - 10/13/2024 3:43 PM RUBBER ATTACHER Hospital Encounter [facility] [address] [place] [phone] Daryn North MD Surgery General Discharge Disposition: Home Health Care [facility] 10/06/2024 Telephone [facility] - Orthopedics [address] [place] [phone] Adeola Mendez MD Pre-op Clearance 10/02/2024 Travel 09/29/2024 9:15 AM RUBBER ATTACHER Office Visit [facility] - Orthopedics [address] [place] [phone] Wild, Adeola E, MD Chambers, Karra N, LIBRARY CLERK-ELECTRICAL ASSISTANT Closed fracture of lateral portion of right tibial plateau, initial encounter (Primary Dx) 09/29/2024 Travel 09/25/2024 Transitional Care [facility] Coordination [address] [place] [address] Fiordaliza Neville, machinist class b 09/24/2024 Transitional Care [facility] Care Coordination [address] [place] [phone] Fiordaliza Neville, machinist class b 09/24/2024 Transitional Care [facility] Coordination [address] [place] [phone] Haydee Curtis RNmachinist class b 09/19/2024 4:12 PM RUBBER ATTACHER Anesthesia Event [facility] [address] [place] [address] Dorinda Stevens MD McDowell, Jacob A, Anes Asst 09/19/2024 3:50 PM RUBBER ATTACHER - 09/19/2024 4:50 PM RUBBER ATTACHER Surgery [facility] [address] [place] [address] Marifer Saeed MD RIGHT TIBIA CLOSED REDUCTION EXTERNAL FIXATION 09/18/2024 10:44 PM RUBBER ATTACHER - 09/23/2024 9:47 PM RUBBER ATTACHER Hospital Encounter [facility] 6N ACUTE [address] [place] [address] Adeola Carreon MD Swan, Erin R, MD Orthopedics Discharge Disposition: Home Health Care [facility] 09/18/2024 Travel from Last 3 Months Immunizations [...] Recorded Patient Health Questionnaire-2 Score 1 11/26/2024 [facility] - [...] any time in the past 12 m [facility], were you homeless or living in a care home (including now)? No 11/15/2024 Sex and Gender Information Value Date Recorded Sex Assigned at Female 06/03/2023 3:57 PM CDT Gender Identity Female 06/03/2023 3:57 PM CDT Sexual Orientation Not on file Last Filed Vital Signs Vital Sign Reading Time Taken Comments Blood Pressure 138/73 11/26/2024 7:43 AM RUBBER ATTACHER Pulse 70 11/26/2024 7:43 AM RUBBER ATTACHER Temperature 36.7 C (98 F) 11/26/2024 7:43 AM RUBBER ATTACHER Respiratory Rate 18 11/26/2024 7:43 AM RUBBER ATTACHER Oxygen Saturation 97% 11/26/2024 7:43 AM RUBBER ATTACHER Inhaled Oxygen Concentration 40% 10/10/2024 1 2:23 PM RUBBER ATTACHER Weight 89.4 kg (197 lb) 11/26/2024 9:39 AM RUBBER ATTACHER Height 167.6 cm (5' 6 ) 11/26/2024 9:39 AM RUBBER ATTACHER Body Mass Index 31.8 11/26/2024 9:39 AM RUBBER ATTACHER Plan of Treatment Upcoming Encounters Date Type Department Care Team (Late st Contact Info) Description 12/02/2024 1:40 PM RUBBER ATTACHER Office Visit [facility] - Rheumatology [address] [place] [phone] Meryl Cuenca MD [address] [place] [address] [place] [phone] 12/03/2024 10:15 AM RUBBER ATTACHER Office Visit [facility] - Orthopedics [address] [place] [phone] Daryn North MD [address] [place] [address] [place] [address] 12/25/2024 10:00 AM CDT Office Visit [facility] - Infectious Disease [address] [place] [phone] Missy Vogel PA-C [address] [place] [phone] 01/15/2025 10:00 AM CDT Office Visit [facility] - GI [address] [place] [phone] Health Maintenance Due Date Last Done Comments [...] Mobility General On track( 025 10:37 AM RUBBER ATTACHER) Ayaka Siegel, RN Note: Expected end date: 10/14/21 The goal is to maintain or improve your mobility at the optimum level for you. Interventions: Medical Devices Implanted Type Area Sales Trainee Device Identifier Shelf Expiration Date Model / Serial / Lot Screw 3.5mm 50mm 2.5mm Slf-Tap Sm Hex Implanted:Qty : 1 on 03/15/2021 by Sukumar Magaña, DO at [facility] Right: [employer] [id number] / / Screw 3.5mm 55mm 2.5mm Slf-Tap Sm Hex Implanted:Qty : 1 on 03/15/2021 by Sukumar Magaña DO at [facility] Right: [employer] [id number] / / Plate 2 Hl 2 Comp Colr 25mm 1/3 Tblr Implanted:Qty : 1 on 03/15/2021 by Sukumar Magaña DO at [facility] Right: [employer] [id number] / / Sub Bngf 4.8mm Ostst Ca Slf Pelt Implanted:Qty : 1 on 03/15/2021 by Sukumar Magaña DO at [facility] [place] [id number] / / [id number] Screw 4.7mm 5.6mm 36mm 2.5mm Ft Va Lopro Implanted:Qty : 2 on 10/10/2024 by Daryn North MD at [facility] Right: Tibia [employer] 11/26/2033 [id number] / / [id number] Screw 4.7mm 5.6mm 28mm 2.5mm Ft Va Lopro Implanted:Qty : 1 on 10/10/2024 by Daryn North MD at [facility] Right: [employer] 03/12/2032 [id number] / / [id number] Screw 4.7mm 5.6mm 32mm 2.5mm Ft Va Lopro Implanted:Qty : 1 on 10/10/2024 by Daryn North MD at [facility] Right: [employer] [id number] 10/19/2030 [id number] / / [id number] Agent Hmst Thrmb Kt Surgiflo 2ml Implanted:Qty : 2 on 10/10/2024 by Daryn North MD at [facility] Right: Tibia [employer] [id number] / / Screw 3.5mm 26mm Slf-Tap Cortx Evos Strl Implanted:Qty : 1 on 10/10/2024 by Daryn North MD at [facility] Right: [employer] [id number] / / Screw 3.5mm 32mm Slf-Tap Cortx Evos Strl Implanted:Qty : 1 on 10/10/2024 by Daryn North MD at [facility] Right: [employer] [id number] / / Screw 3.5mm 34mm Slf-Tap Cortx Evos Strl Implanted:Qty : 1 on 10/10/2024 by Daryn North MD at [facility] Right: [employer] [id number] / / Screw 3.5mm 15mm Slf-Tap Lck Evos Strl Implanted:Qty : 1 on 10/10/2024 by Daryn North MD at [facility] Right: [employer] [id number] / / Plate 9 Hl Va Lck Fib Lt Dist 125mm Implanted:Qty : 1 on 10/10/2024 by Daryn North MD at [facility] Right: [employer] [id number] / / Screw 3.5mm 32mm Ft Slf-Tap Hex Lopro Implanted:Qty : 1 on 10/10/2024 by Daryn North MD at [facility] Right: [employer] [id number] / / Screw 3.5mm 60mm T15 Lck Slf-Tap Tip Tpr Implanted:Qty : 1 on 10/10/2024 by Daryn North MD at [facility] Right: [employer] [id number] / / Screw 3.5mm 65mm T15 Lck Slf-Tap Tip Tpr Implanted:Qty : 3 on 10/10/2024 by Daryn North MD at [facility] Right: [employer] [id number] / / Screw 3.5mm 70mm T15 Lck Slf-Tap Tip Tpr Implanted:Qty : 1 on 10/10/2024 by Daryn North MD at [facility] Right: [employer] [id number] / / Plate 9 Hl Lck Lopro Dist Blt Tip Tib Rt Implanted:Qty : 1 on 10/10/2024 by Daryn North MD at [facility] Right: [employer] [id number] / / Screw 3.5mm 75mm T15 Lck Slf-Tap Tip Tpr Implanted:Qty : 2 on 10/10/2024 by Daryn North MD at [facility] Right: [employer] [id number] / / Screw 3.5mm 40mm Ft Slf-Tap Hex Lopro Implanted:Qty : 1 on 10/10/2024 by Daryn North MD at [facility] Right: [employer] [id number] / / Screw 3.5mm 20mm T15 Slf-Tap Lck Tpr Implanted:Qty : 1 on 10/10/2024 by Daryn North MD at [facility] Right: [employer] [id number] / / Cmnt Bone Smpx Ptbr Fd Radopq Prebl Implanted:Qty : 1 on 11/17/2024 by Daryn North MD at [facility] Right: Knee [employer] 01/12/2026 6197-9-010 / / [id number] Bone Void 10cc 20cc Ca Slf Stimulan Implanted:Qty : 1 on 11/17/2024 by Daryn North MD at [facility] Right: Knee [employer] 07/14/2027 620-010 / / [id number] Explanted Type Area Sales Trainee Device Identifier Shelf Expiration Date Model / Serial / Lot Wire K 2mm 150mm 1 End Troc Pnt Ss Sm Explanted:Qty: 1 on 03/15/2021 by Sukumar Magaña DO at [facility] Right: [employer] [id number] / / Screw 3.5mm 60mm 2.5mm Slf-Tap Sm Hex Explanted:Qty: 1 on 03/15/2021 by Sukumar Magaña DO at [facility] Right: [employer] [id number] / / Cplng Extfix Hfmn 3 Nikhil To Nikhil Salomón Explanted:Qty: 4 on 09/19/2024 by Marifer Saeed MD at [facility] Right: [employer] 4922-1-010 / / Screw 3.5mm 38mm Slf-Tap Cortx Evos Strl Explanted:Qty: 1 on 10/10/2024 by Daryn North MD at [facility] Right: [employer] [id number] / / Screw 3.5mm 42mm Slf-Tap Cortx Evos Strl Explanted:Qty: 1 on 10/10/2024 by Daryn North MD at [facility] Right: [employer] [id number] / / Wire K 1.6mm 150mm Troc Pnt Ss Fx Strl Explanted:Qty: 1 on 10/10/2024 by Drayn North MD at [facility] Right: [employer] [id number] / / Plate 11 Hl Va Lck Lopro Fib Lt Dist Lat Explanted:Qty: 1 on 10/10/2024 by Daryn North MD at [facility] Right: [employer] [id number] / / Wire K 1.6mm 6in Hlf Bynt Pnt Ss Fx Explanted:Qty: 3 on 10/10/2024 by Daryn North MD at [facility] Right: [employer] [id number] / / Pin Hlf 180mm 5mm Apx Hfmn2 Canc Ss Implanted:Qty: 2 on 09/19/2024 by Marifer Saeed MD at [facility] Explanted:Qty: 2 on 10/10/2024 by Daryn North MD at [facility] Right: [employer]ia [employer] [id number] / / Pin Hlf 200mm 5mm Apx Hfmn2 Orth Ss Thrd Implanted:Qty: 2 on 09/19/2024 by Marifer Saeed MD at [facility] Explanted:Qty: 2 on 10/10/2024 by Daryn North MD at [facility] Right: [employer] [id number] / / Procedures Procedure Name Priority Date/Time Associated Diagnosis Comments XR TIBIA FIBULA RIGHT 2VW Routine 11/26/2024 9:34 AM RUBBER ATTACHER Closed fracture of lateral portion of right tibial plateau, initial encounter COMPREHENSIVE METABOLIC PANEL Routine 11/26/2024 8:49 AM RUBBER ATTACHER Elevated LFTs GLUCOSE - POINT OF CARE Routine 11/20/2024 1:30 PM RUBBER ATTACHER GLUCOSE - POINT OF CARE Routine 11/20/2024 8:10 AM RUBBER ATTACHER BASIC METABOLIC PANEL (CALCIUM TOTAL) AM Draw 11/20/2024 12:49 AM RUBBER ATTACHER HEPATITIS C AB SCREEN RFLX NAAT QUANT Routine 11/20/2024 12:48 AM RUBBER ATTACHER HIV-1 HIV-2 ANTIBODY + HIV P24 AG PANEL Routine 11/20/2024 12:48 AM RUBBER ATTACHER HEPATITIS SCREEN ACUTE AM Draw 11/20/2024 12:48 AM RUBBER ATTACHER CBC W/O DIFFERENTIAL AM Draw 11/20/2024 12:48 AM RUBBER ATTACHER GLUCOSE - POINT OF CARE Routine 11/19/2024 9:06 PM RUBBER ATTACHER GLUCOSE - POINT OF CARE Routine 11/19/2024 5:26 PM RUBBER ATTACHER HEMOGLOBIN Timed 11/19/2024 3:37 PM RUBBER ATTACHER GLUCOSE - POINT OF CARE Routine 11/19/2024 1:18 PM RUBBER ATTACHER TRANSFUSE RED BLOOD CELL LEUKOREDUCED UNIT(S) Routine 11/19/2024 9:30 AM RUBBER ATTACHER PREPARE RBC LEUKOREDUCED UNIT Routine 11/19/2024 9:14 AM RUBBER ATTACHER GLUCOSE - POINT OF CARE Routine 11/19/2024 8:22 AM RUBBER ATTACHER TYPE + SCREEN PANEL STAT 11/19/2024 6 :24 AM RUBBER ATTACHER HEPATIC FUNCTION PANEL AM Draw 11/19/2024 12:15 AM RUBBER ATTACHER CBC W/O DIFFERENTIAL AM Draw 11/19/2024 12:15 AM RUBBER ATTACHER BASIC METABOLIC PANEL (CALCIUM TOTAL) AM Draw 11/19/2024 12:15 AM RUBBER ATTACHER GLUCOSE - POINT OF CARE Routine 11/18/2024 7:54 PM RUBBER ATTACHER GLUCOSE - POINT OF CARE Routine 11/18/2024 5:44 PM RUBBER ATTACHER GLUCOSE - POINT OF CARE Routine 11/18/2024 12:35 PM RUBBER ATTACHER EKG 12-LEAD Routine 11/18/2024 11:30 AM RUBBER ATTACHER Closed fracture of right tibia and fibula, initial encounter GLUCOSE - POINT OF CARE Routine 11/18/2024 8:30 AM RUBBER ATTACHER CBC W/O DIFFERENTIAL AM Draw 11/18/2024 12:20 AM RUBBER ATTACHER BASIC METABOLIC PANEL (CALCIUM TOTAL) AM Draw 11/18/2024 12:20 AM RUBBER ATTACHER GLUCOSE - POINT OF CARE Routine 11/17/2024 9:12 PM RUBBER ATTACHER GLUCOSE - POINT OF CARE Routine 11/17/2024 5:19 PM RUBBER ATTACHER VAS BILATERAL VENOUS DUPLEX LE Routine 11/17/2024 12:30 PM RUBBER ATTACHER Closed fracture of right tibia and fibula, initial encounter GLUCOSE - POINT OF CARE Routine 11/17/2024 11:45 AM RUBBER ATTACHER CULTURE ANAEROBE STAT 11/17/2024 8:38 AM RUBBER ATTACHER CULTURE WOUND+GRAM STAIN STAT 11/17/2024 8:38 AM RUBBER ATTACHER CULTURE ANAEROBE STAT 11/17/2024 8:36 AM RUBBER ATTACHER CULTURE WOUND+GRAM STAIN STAT 11/17/2024 8:36 AM RUBBER ATTACHER ENDOTRACHEAL TUBE NOTE Routine 11/17/2024 7:55 AM RUBBER ATTACHER FL EXPLORE WOUND,EXTREMITY 11/17/2024 7:07 AM RUBBER ATTACHER Injury of right knee, initial encounter CBC W/O DIFFERENTIAL AM Draw 11/17/2024 12:44 AM RUBBER ATTACHER BASIC METABOLIC PANEL (CALCIUM TOTAL) AM Draw 11/17/2024 12:44 AM RUBBER ATTACHER GLUCOSE - POINT OF CARE Routine 11/16/2024 7:59 PM RUBBER ATTACHER GLUCOSE - POINT OF CARE Routine 11/16/2024 6:01 PM RUBBER ATTACHER URINALYSIS REFLEX TO MICROSCOPIC NO CULTURE Routine 11/16/2024 1:08 PM RUBBER ATTACHER PROTEIN URINE RANDOM QUANTITATIVE Routine 11/16/2024 1:08 PM RUBBER ATTACHER UREA NITROGEN URINE RANDOM Routine 11/16/2024 1:08 PM RUBBER ATTACHER CREATININE URINE RANDOM Routine 11/16/2024 1:08 PM RUBBER ATTACHER SODIUM URINE RANDOM Routine 11/16/2024 1 :08 PM RUBBER ATTACHER GLUCOSE - POINT OF CARE Routine 11/16/2024 11:33 AM RUBBER ATTACHER GLUCOSE - POINT OF CARE Routine 11/16/2024 8:17 AM RUBBER ATTACHER CBC W/O DIFFERENTIAL AM Draw 11/16/2024 12:21 AM RUBBER ATTACHER BASIC METABOLIC PANEL (CALCIUM TOTAL) AM Draw 11/16/2024 12:21 AM RUBBER ATTACHER GLUCOSE - POINT OF CARE Routine 11/15/2024 8:18 PM RUBBER ATTACHER GLUCOSE - POINT OF CARE Routine 11/15/2024 6:00 PM RUBBER ATTACHER GLUCOSE - POINT OF CARE Routine 11/15/2024 1:13 PM RUBBER ATTACHER GLUCOSE - POINT OF CARE Routine 11/15/2024 9:10 AM RUBBER ATTACHER VITAMIN D 25-HYDROXY AM Draw 11/15/2024 12:56 AM RUBBER ATTACHER FERRITIN Routine 11/15/2024 12:56 AM RUBBER ATTACHER IRON + TRANSFERRIN PANEL Routine 11/15/2024 12:56 AM RUBBER ATTACHER VITAMIN B12 AM Draw 11/15/2024 12:56 AM RUBBER ATTACHER FOLATE Routine 11/15/2024 12:56 AM RUBBER ATTACHER CBC W/O DIFFERENTIAL AM Draw 11/15/2024 12:56 AM RUBBER ATTACHER BASIC METABOLIC PANEL (CALCIUM TOTAL) AM Draw 11/15/2024 12:56 AM RUBBER ATTACHER GLUCOSE - POINT OF CARE Routine 11/14/2024 10:25 PM RUBBER ATTACHER GLUCOSE - POINT OF CARE Routine 11/14/2024 5:53 PM RUBBER ATTACHER COMPREHENSIVE METABOLIC PANEL Routine 11/14/2024 4:18 PM RUBBER ATTACHER HEMOGLOBIN A1C Routine 11/14/2024 4:18 PM RUBBER ATTACHER PT EVAL AND TREAT ORTHO/TRAUMA Routine 11/14/2024 9:08 AM RUBBER ATTACHER OT EVAL AND TREAT ORTHO/TRAUMA Routine 11/14/2024 9:08 AM RUBBER ATTACHER CULTURE ANAEROBE STAT 11/14/2024 8:21 AM RUBBER ATTACHER CULTURE WOUND+GRAM STAIN STAT 11/14/2024 8:21 AM RUBBER ATTACHER CULTURE ANAEROBE STAT 11/14/2024 8:10 AM RUBBER ATTACHER CULTURE WOUND+GRAM STAIN STAT 11/14/2024 8:10 AM RUBBER ATTACHER CULTURE ANAEROBE STAT 11/14/2024 8:10 AM RUBBER ATTACHER CULTURE WOUND+GRAM STAIN STAT 11/14/2024 8:10 AM RUBBER ATTACHER ENDOTRACHEAL TUBE NOTE Routine 11/14/2024 7:57 AM RUBBER ATTACHER FL RENE SUBQ TISSUE 20 SQ CM/< 11/14/2024 6:58 AM RUBBER ATTACHER Surgical site infection Special Needs Supine C-ARM CBC W AUTO DIFFERENTIAL STAT 11/14/2024 6:47 AM RUBBER ATTACHER Arthralgia of right ankle TYPE + SCREEN PANEL Routine 11/14/2024 6 :17 AM RUBBER ATTACHER XR WRIST LEFT 3VW OR MORE Routine 11/12/2024 9:24 AM RUBBER ATTACHER Closed fracture of left wrist, initial encounter XR TIBIA FIBULA RIGHT 2VW Routine 11/12/2024 9:22 AM RUBBER ATTACHER Closed fracture of lateral portion of right tibial plateau, initial encounter XR TIBIA FIBULA RIGHT 2VW Routine 10/22/2024 11:26 AM RUBBER ATTACHER Closed fracture of lateral portion of right tibial plateau, initial encounter CBC W/O DIFFERENTIAL AM Draw 10/13/2024 1:55 AM RUBBER ATTACHER Closed fracture of right tibia and fibula, initial encounter BASIC METABOLIC PANEL (CALCIUM TOTAL) AM Draw 10/13/2024 1:55 AM RUBBER ATTACHER Closed fracture of right tibia and fibula, initial encounter CBC W/O DIFFERENTIAL AM Draw 10/12/2024 1:03 PM RUBBER ATTACHER Closed fracture of right tibia and fibula, initial encounter BASIC METABOLIC PANEL (CALCIUM TOTAL) AM Draw 10/12/2024 4:18 AM RUBBER ATTACHER Closed fracture of right tibia and fibula, initial encounter CBC W/O DIFFERENTIAL AM Draw 10/11/2024 2:13 AM RUBBER ATTACHER Closed fracture of right tibia and fibula, initial encounter BASIC METABOLIC PANEL (CALCIUM TOTAL) AM Draw 10/11/2024 2:13 AM RUBBER ATTACHER Closed fracture of right tibia and fibula, initial encounter XR TIBIA FIBULA RIGHT 2VW STAT 10/10/2024 1:17 PM RUBBER ATTACHER Closed fracture of right tibia and fibula, initial encounter FL BENJAMIN SURGERY STAT 10/10/2024 11:01 AM RUBBER ATTACHER Closed fracture of right tibia and fibula, initial encounter PERIPHERAL IV NOTE Routine 10/10/2024 8: 22 AM RUBBER ATTACHER ENDOTRACHEAL TUBE NOTE Routine 10/10/2024 8:22 AM RUBBER ATTACHER FL OPEN RX BILAT TIB PLAT FX 10/10/2024 7:15 AM RUBBER ATTACHER Closed fracture of lateral portion of right tibial plateau, initial encounter Special Needs Supine C-Arm TYPE + SCREEN PANEL Routine 10/10/2024 6 :24 AM RUBBER ATTACHER CBC W/O DIFFERENTIAL AM Draw 09/23/2024 6:31 AM RUBBER ATTACHER Closed fracture of right tibia and fibula, initial encounter BASIC METABOLIC PANEL (CALCIUM TOTAL) AM Draw 09/23/2024 6:31 AM RUBBER ATTACHER Closed fracture of right tibia and fibula, initial encounter CBC W/O DIFFERENTIAL AM Draw 09/22/2024 7:15 AM RUBBER ATTACHER Closed fracture of right tibia and fibula, initial encounter BASIC METABOLIC PANEL (CALCIUM TOTAL) AM Draw 09/22/2024 7:15 AM [employer] ATT[employer] Closed fracture of right tibia and fibula, initial encounter XR KNEE RIGHT 2VW OR LESS Routine 09/21/2024 11:00 AM [employer] Closed fracture of right tibia and fibula, initial encounter CBC W/O DIFFERENTIAL AM Draw 09/21/2024 5:54 AM [employer]ER ATT[employer] Closed fracture of right tibia and fibula, initial encounter BASIC METABOLIC PANEL (CALCIUM TOTAL) AM Draw 09/21/2024 5:54 AM RUBBER ATT[employer]ER Closed fracture of right tibia and fibula, initial encounter CBC W/O DIFFERENTIAL AM Draw 09/20/2024 3:42 AM RUBBER ATTACHER Closed fracture of right tibia and fibula, initial encounter BASIC METABOLIC PANEL (CALCIUM TOTAL) AM Draw 09/20/2024 3:42 AM RUBBER ATTACHER Closed fracture of right tibia and fibula, initial encounter [place] BENJAMIN SURGERY STAT 09/19/2024 5:18 PM RUBBER ATTACHER Closed fracture of right tibia and fibula, initial encounter PERIPHERAL IV NOTE Routine 09/19/2024 4: 47 PM RUBBER ATTACHER ENDOTRACHEAL TUBE NOTE Routine 09/19/2024 4:46 PM RUBBER ATTACHER FL CLOSED RX TIBIA SHAFT FX 09/19/2024 4:16 PM RUBBER ATTACHER Closed fracture of right tibial plateau, initial encounter VITAMIN D 25-HYDROXY Routine 09/19/2024 3:12 AM RUBBER ATTACHER Closed fracture of right tibia and fibula, initial encounter Disorder of bone CBC W/O DIFFERENTIAL STAT 09/19/2024 3:12 AM RUBBER ATTACHER Closed fracture of right tibia and fibula, initial encounter COMPREHENSIVE METABOLIC PANEL STAT 09/19/2024 3:12 AM RUBBER ATTACHER PT EVAL AND TREAT ORTHO/TRAUMA Routine 09/19/2024 1:52 AM RUBBER ATTACHER OT EVAL AND TREAT ORTHO/TRAUMA Routine 09/19/2024 1:[address] TIBIA FIBULA RIGHT WO CONT STAT 09/19/2024 1:14 AM RUBBER ATTACHER Right leg pain CT KNEE RIGHT WO CONTRAST STAT 09/19/2024 1:14 AM RUBBER ATTACHER Right leg pain XR FOOT RIGHT 3VW OR MORE STAT 09/19/2024 12:45 AM RUBBER ATTACHER Right leg pain TYPE + SCREEN PANEL STAT 09/18/2024 1 1:24 PM RUBBER ATTACHER CBC W AUTO DIFFERENTIAL STAT 09/18/2024 11:24 PM RUBBER ATTACHER XR KNEE RIGHT 2VW OR LESS STAT 09/18/2024 11:08 PM RUBBER ATTACHER Right leg pain XR TIBIA FIBULA RIGHT 2VW STAT 09/18/2024 11:08 PM RUBBER ATTACHER Right leg pain ENDOSCOPY, COLON, SCREENING Routine 05/30/2024 9:42 AM CDT from Last 3 Months or Most Recently Relevant to Health Maintenance Results * XR Tibia Fibula Right 2Vw (11/26/2024 9:34 AM RUBBER ATTACHER) Only the most recent of5 resultswithin the time period is included. Anatomical Region Laterality Modality Lower Extremity Computed Radiogr aphy 11/26/2024 10:0 0 AM RUBBER ATTACHER Impressions 11/26/2024 10:29 AM RUBBER ATTACHER IMPRESSION: Redemonstration of a proximal tibial fracture fixation and distal tibiofibular syndesmotic fixation, unchanged in alignment. Interval appearance of multiple radiopaque findings within the lateral aspect of the distal thigh and medial aspect of the proximal leg soft tissue, likely antibiotic beads. Report dictated by Luciano Woods MD, (Freight Broker Agent). I, Yefri Groves MD have personally reviewed and interpreted this examination/study. > Interpreting Provider: Yefri Groves MD on 11/26/2024 10:29 AM Narrative 11/26/2024 10:29 AM RUBBER ATTACHER PROCEDURE: XR TIBIA FIBULA RIGHT 2VW, DATE/TIME OF EXAM: 11/26/2024 9:34 AM, LOCATION [facility] INDICATION: S82.121A: Closed fracture of [...] 2VW, DATE/TIME OF EXAM: 59:34 AM, LOCATION [facility] INDICATION: S82.121A: Closed fracture of [...] beads. Report dictated by Luciano Woods MD, (Freight Broker Agent). I, Yefri Groves MD have personally reviewed and interpreted this examination/study. > Interpreting Provider: Yefri Groves MD on 11/26/2024 10:29 AM Daryn North MD DIAGNOSTIC IMAGING O RDERABLES * (ABNORMAL) COMPREHENSIVE METABOLIC PANEL (11/26/2024 8:49 AM RUBBER ATTACHER) Only the most recent of3 resultswithin the time period is included. BUN 23 7 - 26 mg/dL 11/26/2024 12:07 PM [facility] Creatinine 0.88 0.56 - 0.96 mg/dL 11/26/2024 12:07 PM [facility] Sodium 143 136 - 145 mmol/L 11/26/2024 12:07 PM [facility] Potassium 3.9 3.5 - 4.5 mmol/L 11/26/2024 12:07 PM [facility] Chloride 115(H) 98 - 107 mmol/L 11/26/2024 12:07 PM [facility] CO2 18(L) 22 - 29 mmol/L 11/26/2024 12:07 PM [facility] Glucose 83 70 - 99 mg/dL 11/26/2024 12:07 PM [facility] Calcium 9.1 8.4 - 10.2 mg/dL 11/26/2024 12:07 PM [facility] Protein Total 6.6 6.0 - 8.3 g/dL 11/26/2024 12:07 PM [facility] Albumin 2.9(L) 3.4 - 5.0 g/dL 11/26/2024 12:07 PM [facility] Bilirubin Total 0.3 0.2 - 1.2 mg/dL 11/26/2024 12:07 PM [facility] Alkaline Phosphatase 200(H) 40 - 150 U/L 11/26/2024 12:07 PM [facility] ALT 25 5 - 55 U/L 11/26/2024 12:07 PM [facility] AST 21 5 - 34 U/L 11/26/2024 12:07 PM [facility] Anion Gap 10 6 - 16 11/26/2024 12:07 PM [facility] BUN/Creatinine Ratio 26(H) 7 - 23 11/26/2024 12:07 PM [facility] Osmolality Calculated 299(H) 275 - 295 mOsm/kg 11/26/2024 12:07 PM [facility] Albumin/Globulin Ratio 0.8(L) 1.1 - 2.3 11/26/2024 12:07 PM [facility] eGFR by CKD-EPI 72(L) >=90 mL/min/1.7 3 m2 11/26/2024 12:07 PM [facility] Blood BLOOD SPECIMEN / Unknown Lab Venipuncture / Unknown 11/26/2024 8:49 AM RUBBER ATTACHER 11/26/2024 11:42 AM RUBBER ATTACHER Nikhil Godinez III, MD LAB - CHEMISTRY O RDERABLES Performing Organization Address City/[facility]/ZIP Co de Phone Number [address] [address], [facility] [phone] * GLUCOSE - POINT OF CARE (11/20/2024 1:30 PM RUBBER ATTACHER) Only the most recent of23 resultswithin the time period is included. Glucose WB/POC 95 70 - 99 mg/dL 11/20/2024 4:55 PM [facility] Specimen Type Cap Fingerstick 2024 4:55 PM [facility] Blood BLOOD SPECIMEN / Unknown 11/20/2024 1:30 PM RUBBER ATTACHER 11/20/2024 4:55 PM RUBBER ATTACHER Daryn North MD LAB - POINT OF CARE ORDERABLES Performing Organization Address City/[facility]/ZIP Co de Phone Number [address] [address], [place] [phone] * (ABNORMAL) BASIC METABOLIC PANEL (CALCIUM TOTAL) (11/20/2024 12:49 AM RUBBER ATTACHER) Only the most recent of13 resultswithin the time period is included. BUN 26 7 - 26 mg/dL 11/20/2024 1:59 AM [facility] Creatinine 0.98(H) 0.56 - 0.96 mg/dL 11/20/2024 1:59 AM [facility] Sodium 143 136 - 145 mmol/L 11/20/2024 1:59 AM [facility] Potassium 3.8 3.5 - 4.5 mmol/L 11/20/2024 1:59 AM [facility] Chloride 113(H) 98 - 107 mmol/L 11/20/2024 1:59 AM [facility] CO2 22 22 - 29 mmol/L 11/20/2024 1:59 AM [facility] Glucose 95 70 - 99 mg/dL 11/20/2024 1:59 AM [facility] Calcium 8.9 8.4 - 10.2 mg/dL 11/20/2024 1:59 AM [facility] Anion Gap 8 6 - 16 11/20/2024 1:59 AM [facility] BUN/Creatinine Ratio 27(H) 7 - 23 11/20/2024 1:59 AM [facility] Osmolality Calculated 301(H) 275 - 295 mOsm/kg 11/20/2024 1:59 AM [facility] eGFR by CKD-EPI 64(L) >=90 mL/min/1.7 3 m2 11/20/2024 1:59 AM [facility] Blood BLOOD SPECIMEN / Unknown Lab Venipuncture / Unknown 11/20/2024 12:49 AM RUBBER ATTACHER 11/20/2024 1:28 AM [facility] Daryn North MD LAB - CHEMISTRY KONG [facility] Organization Address City/State/[facility] Co de Phone Number [facility] [address] [place] [address], [facility] [phone] * HEPATITIS C AB SCREEN RFLX NAAT QUANT (11/20/2024 12:48 AM [facility]) Hepatitis C Antibody Non-react juju Non-reac tive 11/20/2024 2:21 AM [facility] Comment: Hepatitis C Antibody screen indicates [...] Lab Venipuncture / Unknown 11/20/2024 12:48 AM RUBBER ATTACHER 11/20/2024 1:18 AM RUBBER ATTACHER Cathie Reyes MD LAB - CHEMISTRY KONG JENSEN Performing Organization Address City/[facility]/ZIP Co de Phone Number [address] [address], [facility] [phone] * HIV-1 HIV-2 ANTIBODY + HIV P24 AG PANEL (11/20/2024 12:48 AM RUBBER ATTACHER) Pathologist [facility] HIV Antigen/Antibod y 1 & 2 Non-reacti ve Non-react juju 11/20/2024 2:21 AM RUBBER ATTACHER [facility] Comment:No Laboratory eviden ce of HIV infection. Blood BLOOD SPECIMEN / Unknown Lab Venipuncture / Unknown 11/20/2024 12:48 AM RUBBER ATTACHER 11/20/2024 1:18 AM RUBBER ATTACHER Cathie Reyes MD LAB - CHEMISTRY KONG JENSEN Performing Organization Address [facility]/ZIP Co de Phone Number [address] [address], [facility] [phone] * (ABNORMAL) CBC W/O DIFFERENTIAL (11/20/2024 12:48 AM RUBBER ATTACHER) Only the most recent of14 resultswithin the time period is included. Pathologist [facility] WBC 7.7 4.0 - 10.7 x10E9/L 11/20/2024 1:35 AM RUBBER ATTACHER [facility] RBC Count 2.88(L) 3.90 - 5.20 x10E12/L 11/20/2024 1:35 AM [facility] Hemoglobin 8.0(L) 11.9 - 15.8 g/dL 11/20/2024 1:35 AM [facility] Hematocrit 24.5(L) 34.8 - 46.1 % 11/20/2024 1:35 AM [facility] MCV 85.1 80.0 - 98.0 fL 11/20/2024 1:35 AM [facility] MCH 27.8 26.7 - 33.6 pg 11/20/2024 1:35 AM [facility] MCHC 32.7 31.7 - 36.3 g/dL 11/20/2024 1:35 AM [facility] RDW-CV 15.9(H) 11.3 - 14.8 % 11/20/2024 1:35 AM [facility] Platelet Count 269 150 - 420 x10E9/L 11/20/2024 1:35 AM [facility] MPV 11.4 7.8 - 11.4 fL 11/20/2024 1:35 AM [facility] NRBC 0.3(H) <=0.0 /100 WBC 11/20/2024 1:35 AM [facility] Blood BLOOD SPECIMEN / Unknown Lab Venipuncture / Unknown 11/20/2024 12:48 AM RUBBER ATTACHER 11/20/2024 1:18 AM [facility] Daryn North MD LAB - HEMATOLOGY ORD ERABLES [facility] [address] [place] [phone], [facility] [phone] * HEPATITIS SCREEN ACUTE (11/20/2024 12:48 AM [facility]) Hepatitis A Virus Antibody IgM Non-react juju Non-reac tive 11/20/2024 2:21 AM [facility] Hepatitis B Virus Surface Antigen Non-react juju Non-reac tive 11/20/2024 2:21 AM [facility] Hepatitis B Core Virus Antibody IgM Non-react juju Non-reac tive 11/20/2024 2:21 AM [facility] Hepatitis C Antibody Non-react juju Non-reac tive 11/20/2024 2:21 AM [facility] Comment:Hepatitis C Antibody screen indicates no serologic evidence of past or current infection with Hepatitis C Virus. Patients with unexplained liver disease who are immunocompromised or suspected of having acute Hepatitis C infection may benefit from Nucleic Acid Test (KATIUSKA) for Hepatitis C Viral RNA to confirm Hepatitis C status. Blood BLOOD SPECIMEN / Unknown Lab Venipuncture / Unknown 11/20/2024 12:48 AM RUBBER ATTACHER 11/20/2024 1:18 AM RUBBER ATTACHER Cathie Reyes MD LAB - CHEMISTRY KONG JENSEN [address] [address], [facility] [phone] * (ABNORMAL) HEMOGLOBIN (11/19/2024 3:37 PM RUBBER ATTACHER) [facility] Hemoglobin 9.3(L) 11.9 - 15.8 g/dL 11/19/2024 4:07 PM RUBBER ATTACHER [facility] Blood BLOOD SPECIMEN / Unknown Lab Venipuncture / Unknown 11/19/2024 3:37 PM RUBBER ATTACHER 11/19/2024 3:44 PM RUBBER ATTACHER Missy Melgar PA-C LAB - HEMATO LOGY ORDERABLES Performing Organization Address [facility]/ZIP Co de Phone Number [address] [address], [facility] [phone] * PREPARE (CROSSMATCH) RBC UNIT(S), 1 Units (11/19/2024 9:14 AM RUBBER ATTACHER) [facility] Unit Description AS1 LR PRBC IRR [facility] Unit ABO O [facility] Unit Rh NEG [facility] Product Number R04 [facility] B LOOD [facility] LAB Unit Donor # [id number] [facility] Unit Status transfused [facility] Product Code [id number] [facility] Blood Type Barcode 9500 [facility] Expiration Date [id number] S BLOOD BANK LAB Blood Bank BLOOD SPECIMEN / Unknown 11/19/2024 6:33 AM RUBBER ATTACHER Daryn North MD LAB - BLOOD BANK ORD ERABLES [facility] [address] [place] [phone], [facility] [phone] * TYPE + SCREEN PANEL (11/19/2024 6:24 AM RUBBER ATTACHER) Only the most recent of4 resultswithin the time period is included. Antibody Screen NEG 7:12 AM [facility] ABO Rh O POS 11/19/2024 7:12 AM [facility] LAB Blood Bank BLOOD SPECIMEN / Unknown Venipuncture / Unknown 11/19/2024 6:24 AM RUBBER ATTACHER 11/19/2024 6:33 AM RUBBER ATTACHER Daryn North MD LAB - BLOOD BANK ORD ERABLES Performing Organization Address City/[facility]/ZIP Co de Phone Number [facility] [address] [place] [phone], [facility] [phone] * (ABNORMAL) HEPATIC FUNCTION PANEL (11/19/2024 12:15 AM RUBBER ATTACHER) Pathologist [facility] Protein Total 5.2(L) 6.0 - 8.3 g/dL 025 1:22 AM [facility] Albumin 2.1(L) 3.4 - 5.0 g/dL 11/19/2024 1:22 AM [facility] Bilirubin Total 0.2 0.2 - 1.2 mg/dL 02/2025 1:22 AM [facility] Bilirubin Conjugated 0.1 0.1 - 0.5 mg/dL 11/19/2024 1:22 AM [facility] Bilirubin Unconjugated 0.1 Unconjugated Bilirubin is a calculated value: Reference ranges have not been established. mg/dL 11/19/2024 1:22 AM [facility] Alkaline Phosphatase 279(H) 40 - 150 U/L 11/19/2024 1:22 AM [facility] ALT 79(H) 5 - 55 U/L 11/19/2024 1:22 AM [facility] AST 71(H) 5 - 34 U/L 11/19/2024 1:22 AM [facility] Albumin/Globulin Ratio 0.7(L) 1.1 - 2.3 11/19/2024 1:22 AM [facility] Blood BLOOD SPECIMEN / Unknown Lab Venipuncture / Unknown 11/19/2024 12:15 AM RUBBER ATTACHER 11/19/2024 12:50 AM RUBBER ATTACHER Daryn North MD LAB - CHEMISTRY ORDE MIKEY Performing Organization Address [facility]/State/ZIP Co de Phone Number [facility] [address] [place] [address], [facility] [phone] * EKG 12-LEAD (11/18/2024 11:30 AM RUBBER ATTACHER) Ventricular Rate 79 BPM SL MUSE Atrial Rate 79 BPM [facility] MUSE P-R Interval 150 ms [facility] MUSE QRS Duration ms 100 ms [facility] MUSE Q-T Interval ms 406 ms [facility] MUSE QTC Calculation (Bezet) 465 ms [facility] MUSE Calculated P [place] 26 degrees [facility] MUSE Calculated R [place] 9 degrees [facility] MUSE Calculated T [place] 26 degrees [facility] MUSE Interpretation EKG NORMAL SINUS RHYTHM NORMAL ECG NO PREVIOUS ECGS AVAILABLE Confirmed by FRANC RODRIGUEZ MD ([id number]) on 11/22/2024 11:50:41 PM [facility] MUSE 11/18/2024 11:3 0 AM RUBBER ATTACHER 11/22/2024 11:50 PM RUBBER ATTACHER Daryn North MD ECG ORDERABLES Performing Organization Address [facility]/ZIP Co de Phone Number [facility] MUSE * VAS Bilateral Venous Duplex Le (11/17/2024 12:30 PM RUBBER ATTACHER) Anatomical Region Laterality Modality Lower Extremity Ultrasound 11/17/2024 12:1 3 PM RUBBER ATTACHER Narrative Procedure Note Segundo Clement MD - 11/17/2024 Daryn North MD VASCULAR LAB ORDERAB LES * (ABNORMAL) CULTURE WOUND+GRAM STAIN (11/17/2024 8:38 AM RUBBER ATTACHER) Only the most recent of5 resultswithin the time period is included. Culture Light Enterobacter cloacae complex(A) JERILYN 11/19/2024 1:56 PM RUBBER ATTACHER [facility] Gram Stain Heavy Red blood cells 11/19/2024 1:56 PM RUBBER ATTACHER [facility] Gram Stain Rare Polymorphonuclear cells 11/19/2024 1:56 [facility] Gram Stain No organisms seen 025 1:56 PM [facility] Microbiology ENTIRE KNEE REGION / Unknown Collection / Unknown 11/17/2024 8:38 AM RUBBER ATTACHER 11/17/2024 8:46 AM RUBBER ATTACHER Narrative [facility] - 11/19/2024 1:56 PM RUBBER ATTACHER Enterobacter cloacae, Citrobacter freundii, Klebsiella (formerly Enterobacter) [...] North MD LAB - MICROBIOLOGY O RDERABLES [facility] [address] [place] [address], [facility] [phone] * CULTURE ANAEROBE (11/17/2024 8:38 AM RUBBER ATTACHER) Only the most recent of5 resultswithin the time period is included. Culture No anaerobic organisms isolated JERILYN 11/22/2024 1:20 PM RUBBER ATTACHER [facility]CRO[facility] Microbiology ENTIRE KNEE REGION / Unknown Collection / Unknown 11/17/2024 8:38 AM RUBBER ATTACHER 11/17/2024 8:46 AM RUBBER ATTACHER Daryn North MD LAB - MICROBIOLOGY O RDERABLES [facility] [address] [place] [address], [facility] [phone] * ETT LINE PERFORMABLE (11/17/2024 7:55 AM RUBBER ATTACHER) Narrative Sandro Corona DO - 11/17/2024 7:55 AM RUBBER ATTACHER Sandro Corona DO 11/17/2024 7:56 AM Endotracheal Tube Placement: Patient Location: OR. Intubation Event Date/Time: 11/17/2024 7:45 AM Procedure: intubation (70651) Procedure Section: Sedation: under general anesthesia. Indications [...] TO MICROSCOPIC NO CULTURE (11/16/2024 1:08 PM RUBBER ATTACHER) Color UA Straw Straw, Yellow 11/16/2024 1:29 PM RUBBER ATTACHER [facility] Clarity UA Clear Clear 11/16/2024 1:29 PM [facility] Specific [place] UA 1.008 1.005 - 1.030 11/16/2024 1:29 PM [facility] pH UA 5.0 5.0 - 8.0 pH 11/16/2024 1:29 PM [facility] Protein UA Negative Negative 11/16/2024 1:29 PM [facility] Glucose UA Negative Negative 11/16/2024 1:29 PM [facility] Ketone UA Negative Negative 11/16/2024 1:29 PM [facility] Bilirubin UA Negative Negative 11/16/2024 1:29 PM [facility] Blood UA Negative Negative 11/16/2024 1:29 PM [facility] Nitrite UA Negative Negative 11/16/2024 1:29 PM [facility] Leukocyte Esterase Negative Negative 11/16/2024 1:29 PM [facility] Urobilinogen UA Negative Negative mg/dL 11/16/2024 1:29 PM [facility] RBC UA 0-2 None Seen, 0-2, 3-5 /HPF 11/16/2024 1:29 PM [facility] WBC UA 0-5 None Seen, 0-5 /HPF 11/16/2024 1:29 PM [facility] Squamous Epithelial Cells UA 0-2 None Seen, 0-2, 3-5 /HPF 11/16/2024 1:29 PM [facility] Urine URINE SPECIMEN OBTAINED BY CLEAN CATCH PROCEDURE / Unknown Collection / Unknown 11/16/2024 1:08 PM RUBBER ATTACHER 11/16/2024 1:22 PM RUBBER ATTACHER [facility] - 11/16/2024 1:29 PM RUBBER ATTACHER Neftali Read MD LAB - URINALYS IS ORDERABLES [facility] [address] [place] [phone], [facility] [phone] * PROTEIN URINE RANDOM QUANTITATIVE (11/16/2024 1:08 PM RUBBER ATTACHER) Protein Urine <7 Not Established mg/dL 11/16/2024 1:43 PM [facility] Urine URINE SPECIMEN OBTAINED BY CLEAN CATCH PROCEDURE / Unknown Collection / Unknown 11/16/2024 1:08 PM RUBBER ATTACHER 11/16/2024 1:22 PM RUBBER ATTACHER Neftali Read MD LAB - URINE CH EMISTRY ORDERABLES Performing Organization Address City/[facility]/ZIP Co de Phone Number [address] [address], [place] [phone] * SODIUM URINE RANDOM (11/16/2024 1:08 PM RUBBER ATTACHER) Sodium Urine 35 Not Established mmol/L 11/16/2024 1:43 PM RUBBER ATTACHER [facility] Urine URINE SPECIMEN OBTAINED BY CLEAN CATCH PROCEDURE / Unknown Collection / Unknown 11/16/2024 1:08 PM RUBBER ATTACHER 11/16/2024 1:22 PM RUBBER ATTACHER Neftali Read MD LAB - URINE CH EMISTRY ORDERABLES Performing Organization Address City/[facility]/ZIP Co de Phone Number [address] [address], [place] [phone] * UREA NITROGEN URINE RANDOM (11/16/2024 1:08 PM RUBBER ATTACHER) Urea Nitrogen Random Urine 295 Not Established mg/dL 11/16/2024 1:43 PM RUBBER ATTACHER [facility] Urine URINE SPECIMEN OBTAINED BY CLEAN CATCH PROCEDURE / Unknown Collection / Unknown 11/16/2024 1:08 PM RUBBER ATTACHER 11/16/2024 1:22 PM RUBBER ATTACHER Neftali Read MD LAB - URINE CH EMISTRY ORDERABLES Performing Organization Address City/[facility]/ZIP Co de Phone Number [address] [address], [place] [phone] * CREATININE URINE RANDOM (11/16/2024 1:08 PM RUBBER ATTACHER) Creatinine Urine 44.87 Not Established mg/dL 11/16/2024 1:43 PM RUBBER ATTACHER [facility] Urine URINE SPECIMEN OBTAINED BY CLEAN CATCH PROCEDURE / Unknown Collection / Unknown 11/16/2024 1:08 PM RUBBER ATTACHER 11/16/2024 1:22 PM RUBBER ATTACHER Neftali Read MD LAB - URINE CH EMISTRY ORDERABLES Performing Organization Address City/[facility]/ZIP Co de Phone Number [facility] [address] [place] [phone], [facility] [phone] * (ABNORMAL) VITAMIN D 25-HYDROXY (11/15/2024 12:56 AM RUBBER ATTACHER) Only the most recent of2 resultswithin the time period is included. Vitamin D, 25 Hydroxy 25.9(L) 30.0 - 80.0 ng/mL 11/15/2024 3:11 AM [facility] Comment: The recommendations for 25-Hydroxy Vitamin [...] Lab Venipuncture / Unknown 11/15/2024 12:56 AM RUBBER ATTACHER 11/15/2024 2:11 AM RUBBER ATTACHER Sol Leal PA-C LAB - CHEMISTRY ORDERABLES Performing Organization Address City/[facility]/ZIP Co de Phone Number [facility] [address] [place] [phone], [facility] [phone] * FOLATE (11/15/2024 12:56 AM RUBBER ATTACHER) Folate 10.0 7.0 - 31.4 ng/mL 11/15/2024 3:11 AM [facility] Blood BLOOD SPECIMEN / Unknown Lab Venipuncture / Unknown 11/15/2024 12:56 AM RUBBER ATTACHER 11/15/2024 2:11 AM RUBBER ATTACHER Sol Deterding PA-C LAB - CHEMISTRY ORDERABLES [address] [address], [place] [phone] * VITAMIN B12 (11/15/2024 12:56 AM RUBBER ATTACHER) Vitamin B12 583 213 - 816 pg/mL 11/15/2024 3:11 AM [facility] Blood BLOOD SPECIMEN / Unknown Lab Venipuncture / Unknown 11/15/2024 12:56 AM RUBBER ATTACHER 11/15/2024 2:11 AM RUBBER ATTACHER Sol Deterding PA-C LAB - CHEMISTRY ORDERABLES Performing Organization Address City/[facility]/ZIP Co de Phone Number [address] [address], [place] [phone] * (ABNORMAL) IRON + TRANSFERRIN PANEL (11/15/2024 12:56 AM RUBBER ATTACHER) Iron 19(L) 40 - 150 ug/dL 11/15/2024 3:01 AM [facility] Transferrin 151(L) 174 - 382 mg/dL 11/15/2024 3:01 AM [facility] Transferrin Saturation % 10(L) 16 - 50 % 11/15/2024 3:01 AM [facility] TIBC Calculated 189(L) 240 - 450 ug/dL 11/15/2024 3:01 AM [facility] Blood BLOOD SPECIMEN / Unknown Lab Venipuncture / Unknown 11/15/2024 12:56 AM RUBBER ATTACHER 11/15/2024 2:07 AM RUBBER ATTACHER Sol Deterding PA-C LAB - CHEMISTRY ORDERABLES [address] [address], [place] [phone] * (ABNORMAL) FERRITIN (11/15/2024 12:56 AM RUBBER ATTACHER) Ferritin 668(H) 13 - 204 ng/mL 11/15/2024 3:19 AM RUBBER ATTACHER [facility] Blood BLOOD SPECIMEN / Unknown Lab Venipuncture / Unknown 11/15/2024 12:56 AM RUBBER ATTACHER 11/15/2024 2:07 AM RUBBER ATTACHER Sol Leal PA-C LAB - CHEMISTRY ORDERABLES Performing Organization Address City/[facility]/ZIP Co de Phone Number [address] [address], [place] [phone] * HEMOGLOBIN A1C (11/14/2024 4:18 PM RUBBER ATTACHER) Hemoglobin A1c 5.0 <=5.6 % 11/14/2024 5:30 PM [facility] Estimated Average Glucose 97 mg/dL 11/14/2024 5:30 PM [facility] Comment: HbA1c Interpretation: Normal : < 5.7% Pre-diabetes: 5.7-6.4% Diabetes: Equal to or greater than 6.5% Test results diagnostic of diabetes should be repeated for confirmation. Treatment target values recommended by ADA and other clinical organizations should be used to evaluate metabolic control in patients. Reference: [place] [employer], Standards of Care in Diabetes -2020 In patients 70 years and older consider HbA1c target range of 7.0-7.5% (Reference: Samy Cunningham, et al. JAMDA. 2012) The Sebia assay for the measurement of HbA1c is a National Glycohemoglobin Standardization Program (NGSP) certified method. Blood BLOOD SPECIMEN / Unknown Lab Venipuncture / Unknown 11/14/2024 4:18 PM RUBBER ATTACHER 11/14/2024 4:33 PM RUBBER ATTACHER Daryn North MD LAB - CHEMISTRY KONG JENSEN Performing Organization Address City/[facility]/ZIP Co de Phone Number [address] [address], [place] [phone] * ETT LINE PERFORMABLE (11/14/2024 7:57 AM RUBBER ATTACHER) Narrative Mauro Miguel Anes Asst - 11/14/2024 7:57 AM RUBBER ATTACHER Mauro Miguel Anes Asst 11/14/2024 7:57 AM Endotracheal Tube Placement: Patient Location: OR. Intubation Event Date/Time: 11/14/2024 7:33 AM Procedure: intubation (92457) Procedure Section: Sedation: IV sedation. Indications for [...] CBC W AUTO DIFFERENTIAL (11/14/2024 6:47 AM RUBBER ATTACHER) Only the most recent of2 resultswithin the time period is included. WBC 7.3 4.0 - 10.7 x10E9/L 11/14/2024 7:45 AM [facility] RBC Count 3.30(L) 3.90 - 5.20 x10E12/L 11/14/2024 7:45 AM [facility] Hemoglobin 8.9(L) 11.9 - 15.8 g/dL 11/14/2024 7:45 AM [facility] Hematocrit 27.8(L) 34.8 - 46.1 % 11/14/2024 7:45 AM [facility] MCV 84.2 80.0 - 98.0 fL 11/14/2024 7:45 AM [facility] MCH 27.0 26.7 - 33.6 pg 11/14/2024 7:45 AM [facility] MCHC 32.0 31.7 - 36.3 g/dL 11/14/2024 7:45 AM [facility] RDW-CV 14.9(H) 11.3 - 14.8 % 11/14/2024 7:45 AM [facility] Platelet Count 11/14/2024 7:45 AM [facility] Comment:Platelets clumped on slide but appears adequate. Recommend repeat with a sodium citrate blue top tube. MPV 11/14/2024 7:45 AM [facility] Comment:Unable to report Neutrophil % 73.6 41.0 - 74.0 % 11/14/2024 7:45 AM [facility] Lymphocyte % 16.6(L) 17.0 - 47.0 % 11/14/2024 7:45 AM [facility] Monocyte % 8.4 3.0 - 11.0 % 11/14/2024 7:45 AM [facility] Eosinophil % 0.8 0.0 - 7.0 % 11/14/2024 7:45 AM [facility] Basophil % 0.3 0.0 - 1.6 % 11/14/2024 7:45 AM [facility] Immature Granulocytes % 0.3 0.0 - 1.0 % 11/14/2024 7:45 AM [facility] Neutrophil Absolute 5.34 1.60 - 7.50 x10E9/L 11/14/2024 7:45 AM [facility] Lymphocyte Absolute 1.20 1.00 - 4.40 x10E9/L 11/14/2024 7:45 AM [facility] Monocyte Absolute 0.61 0.15 - 1.00 x10E9/L 11/14/2024 7:45 AM [facility] Eosinophil Absolute 0.06 0.00 - 0.60 x10E9/L 11/14/2024 7:45 AM [facility] Basophil Absolute 0.02 0.00 - 0.13 x10E9/L 11/14/2024 7:45 AM [facility] Blood BLOOD SPECIMEN / Unknown Venipuncture / Unknown 11/14/2024 6:47 AM RUBBER ATTACHER 11/14/2024 6:54 AM RUBBER ATTACHER Flaco Rebollar MD LAB - HEMATOLOGY ORD ERABLES [facility] [address] [place] [address], [facility] [phone] * XR Wrist Left 3Vw or More (11/12/2024 9:24 AM RUBBER ATTACHER) Anatomical Region Laterality Modality Wrist / Hand Radiographic Christa ging 11/12/2024 9:34 AM RUBBER ATTACHER Impressions 11/12/2024 9:36 AM RUBBER ATTACHER IMPRESSION: Mildly displaced distal radial fracture. > Interpreting Provider: Yefri Groves MD on 11/12/2024 9:36 AM Narrative 11/12/2024 9:36 AM RUBBER ATTACHER PROCEDURE: XR WRIST LEFT 3VW OR MORE [...] * [place] [facility] (10/10/2024 11:01 AM RUBBER ATTACHER) Only the most recent of2 resultswithin the time period is included. Narrative [facility] - 10/10/2024 11:02 AM RUBBER ATTACHER Fluoroscopy was used for this exam in the OR. Please see the Operative report. Daryn North MD FLUOROSCOPY ORDERABL ES [facility] * IV PLACEMENT PERFORMABLE (10/10/2024 8:22 AM RUBBER ATTACHER) Narrative Karol Dunn APRN-CRNA - 10/10/2024 8:22 AM RUBBER ATTACHER Karol Dunn APRN-CRNA 10/10/2024 8:23 AM Peripheral IV Line Placement: Patient Location: OR Procedure: IV start ([id number]) Procedure Section: Skin Prep: alcohol. Orientation: left Location: forearm Catheter Gauge: 18 Number of Attempts: 1. Procedure Tolerance: performed while patient under general anesthesia. Staff Section Anesthesia Provider: Karol Dunn APRN-CRNA, Performed the procedure Joey Oneal MD GENERAL ANESTHESIA O RDERABLES * ETT LINE PERFORMABLE (10/10/2024 8:22 AM RUBBER ATTACHER) Narrative Karol Dunn APRN-CRNA - 10/10/2024 8:22 AM RUBBER ATTACHER Karol Dunn APRN-CRNA 10/10/2024 8:22 AM Endotracheal Tube Placement: Patient Location: OR. Intubation Event Date/Time: 10/10/2024 7:43 AM Procedure: intubation ([id number]) Procedure Section: Sedation: under general anesthesia. Indications [...] 7:43 AM. Staff Section Anesthesia Provider: Karol Dunn, LIBRARY CLERK-AUTOPSY ASSISTANT, Performed the procedure Joey Oneal MD GENERAL ANESTHESIA O RDERABLES * XR Knee Right 2Vw or Less (09/21/2024 11:00 AM RUBBER ATTACHER) Only the most recent of2 resultswithin the time period is included. Anatomical Region Laterality Modality Lower Extremity Digital Radiogra phy 09/21/2024 7:17 PM RUBBER ATTACHER Impressions 09/21/2024 7:18 PM RUBBER ATTACHER IMPRESSION: Comminuted fracture of the proximal tibia with interval placement of traction pin in the distal femoral diaphysis. > Interpreting Provider: Natalio Nam on 09/21/2024 7:18 PM Narrative 09/21/2024 7:18 PM RUBBER ATTACHER PROCEDURE: XR KNEE RIGHT 2VW OR LESS [...] * IV PLACEMENT PERFORMABLE (09/19/2024 4:47 PM RUBBER ATTACHER) Narrative Karol Dunn APRN-CRNA - 09/19/2024 4:47 PM RUBBER ATTACHER Karol Dunn APRN-CRNA 09/19/2024 4:47 PM Peripheral IV Line Placement: Patient Location: OR Insertion Time: 09/19/2024 4:39 PM Procedure: IV start ([id number]) Procedure Section: Skin Prep: alcohol. Orientation: left Location: hand Catheter Gauge: 20 Number of Attempts: 1. Procedure Tolerance: performed while patient under general anesthesia. Staff Section Anesthesia Provider: Karol Dunn APRN-CRNA, Performed the procedure Chelsey Minaya MD GENERAL ANESTHESIA O MECCA * ETT LINE PERFORMABLE (09/19/2024 4:46 PM RUBBER ATTACHER) Karol Cat APRN-CRNA - 09/19/2024 4:46 PM RUBBER ATTACHER Karol Dunn APRN-CRNA 09/19/2024 4:47 PM Endotracheal Tube Placement: Patient Location: OR. Intubation Event Date/Time: 09/19/2024 4:23 PM Procedure: intubation ([id number]) Procedure Section: Sedation: under general anesthesia. Indications [...] PM. Staff Section Anesthesia Provider: Karol Dunn APRN-AUTOPSY ASSISTANT, Performed the procedure Chelsey Minaya MD GENERAL ANESTHESIA O RDERABLES * CT Tibia Fibula Right Wo Cont (09/19/2024 1:14 AM RUBBER ATTACHER) Anatomical Region Laterality Modality Lower Extremity Computed Tomogra phy 09/19/2024 1:28 AM RUBBER ATTACHER Impressions 09/19/2024 1:47 AM RUBBER ATTACHER IMPRESSION: 1.Acute comminuted and moderately displaced fracture of the proximal tibia with intra-articular extension involving the medial and lateral tibial plateaus. 2.Soft tissue swelling about the knee and proximal lower leg with small volume hemarthrosis. Report dictated by Valentín Zheng MD ([place]). I, Alejandro Hung MD have personally reviewed and interpreted this examination/study. > Interpreting Provider: Alejandro Hung MD on 09/19/2024 1:47 AM Narrative 09/19/2024 1:47 AM RUBBER ATTACHER PROCEDURE: CT KNEE RIGHT WO CONTRAST, CT TIBIA FIBULA RIGHT WO CONT, DATE/TIME OF EXAM: 09/19/2024 1:15 AM, LOCATION [facility] INDICATION: M79.604: Right leg pain ADDITIONAL CLINICAL INFORMATION: Ordering Provider Reason For Exam: eval fracture (accession [id number]), fracture (accession [id number]) COMPARISON: Right knee and right tibia-fibula radiographs [...] DATE/TIME OF EXAM: 09/19/2024 1:15 AM, LOCATION [facility] INDICATION: M79.604: Right leg pain ADDITIONAL CLINICAL INFORMATION: Ordering Provider Reason For Exam: eval fracture (accession [id number]), fracture (accession [id number]) COMPARISON: Right knee and right tibia-fibula radiographs [...] Report dictated by Valentín Zheng MD (president [place]). I, Alejandro Hung MD have personally reviewed and interpreted this examination/study. > Interpreting Provider: Alejandro Hung MD on 09/19/2024 1:47 AM Adeola Carreon MD CT ORDERABLES * CT Knee Right Wo Contrast (09/19/2024 1:14 AM RUBBER ATTACHER) Anatomical Region Laterality Modality Lower Extremity Computed Tomogra phy 09/19/2024 1:28 AM RUBBER ATTACHER Impressions 09/19/2024 1:47 AM RUBBER ATTACHER IMPRESSION: 1.Acute comminuted and moderately displaced fracture of the proximal tibia with intra-articular extension involving the medial and lateral tibial plateaus. 2.Soft tissue swelling about the knee and proximal lower leg with small volume hemarthrosis. Report dictated by Valentín Zheng MD (president [place]). I, Alejandro Hung MD have personally reviewed and interpreted this examination/study. > Interpreting Provider: Alejandro Hung MD on 09/19/2024 1:47 AM Narrative 09/19/2024 1:47 AM RUBBER ATTACHER PROCEDURE: CT KNEE RIGHT WO CONTRAST, CT TIBIA FIBULA RIGHT WO CONT, DATE/TIME OF EXAM: 09/19/2024 1:15 AM, LOCATION [facility] INDICATION: M79.604: Right leg pain ADDITIONAL CLINICAL INFORMATION: Ordering Provider Reason For Exam: eval fracture (accession [id number]), fracture (accession [id number]) COMPARISON: Right knee and right tibia-fibula radiographs [...] DATE/TIME OF EXAM: 09/19/2024 1:15 AM, LOCATION [facility] INDICATION: M79.604: Right leg pain ADDITIONAL CLINICAL INFORMATION: Ordering Provider Reason For Exam: eval fracture (accession [id number]), fracture (accession [id number]) COMPARISON: Right knee and right tibia-fibula radiographs [...] Report dictated by Valentín Zheng MD ([place]). I, Alejandro Hung MD have personally reviewed and interpreted this examination/study. > Interpreting Provider: Alejandro Hung MD on 09/19/2024 1:47 AM Adeola Carreon MD CT ORDERABLES * XR Foot Right 3Vw or More (09/19/2024 12:45 AM RUBBER ATTACHER) Anatomical Region Laterality Modality Ankle / Foot Digital Radiogra phy 09/19/2024 1:25 AM RUBBER ATTACHER Narrative 09/19/2024 9:28 AM RUBBER ATTACHER PROCEDURE: XR FOOT RIGHT 3VW OR MORE, DATE/TIME OF EXAM: 09/19/2024 12:45 AM, LOCATION [facility] INDICATION: M79.604: Right leg pain [...] MORE, DATE/TIME OF EXAM: 2:45 AM, LOCATION [facility] INDICATION: M79.604: Right leg pain [...] the patient. Procedure Code(s): --- Professional --- 55030, Colonoscopy, flexible; with removal of tumor(s), polyp(s), or other lesion(s) by snare technique 53618, 59, Colonoscopy, flexible; with biopsy, single or multiple Diagnosis Code(s): --- Professional --- Z12.11, Encounter for screening for malignant neoplasm of colon D12.0, Benign neoplasm of cecum CPT copyright 2021 [place] [employer]. All rights reserved. The codes documented in this report are preliminary and upon medical billing coder review may be revised to meet current compliance requirements. Balwinder Goncalves MD 05/30/2024 10:32:28 AM This report has been signed electronically. Note Initiated On: 05/30/2024 9:42 AM Number of Addenda: 0 [facility] [address] [place] [address] [facility] PROVATION 05/30/2024 9:42 AM CDT Balwinder Goncalves MD GI PROCEDURE ORDERAB LES [facility] PROVATION from Last 3 Months or Most [...] 12:27 PM 03/16/2021 2:18 PM Care Teams Panel Laminator Relationship Specialty Start Date End Date Geovanni Rodriguez DO [address] [place] [address] PCP - General Internal Medicine 09/19/24
--- OUTSIDE RECORDS SUMMARY | 2024-11-27 15:04 | XMS_ITS | Encounter Summary ---
Author Organization [facility] Address [address] [facility] [place] [address] Care Team Providers Care Medical Social Worker Name Role Phone Geovanni Rodriguez DO Primary Care Provider [phone] Reason for Visit * Reason Onset Date Comments Follow-up 11/27/2024 Encounter Details Date Type Department Care Team (Late st Contact Info) Description 11/27/2024 Telephone [facility] - Allergy [address] [place] [phone] Olga Maguire, SADAF Follow-up Social History Tobacco Use Types Packs/Day Years Used Date Smoking Tobacco: Former Cigarettes 2 13 1 - 1984 Smokeless Tobacco: Never Alcohol Use [...] Recorded Patient Health Questionnaire-2 Score 1 11/26/2024 [facility] [place] of Occupat ional Health - Occupational Stress [...] any time in the past [address] [facility], were you homeless or living [...] Telephone Encounter - Olga Maguire, RN - 11/27/2024 2:19 PM CST Spoke with Megan with [facility] who stated that she has spoke with about patient labs. Shereported that has told her that they have faxed the orders over but Megan has not received them. Megan stated that she will continue to try to get the labs sent over. ING ENTERPRISES SUPERVISOR documented in this encounter Plan of Treatment Upcoming Encounters Date Type Department Care Team (Late st Contact Info) Description 12/02/2024 1:40 PM VENDING ENTERPRISES SUPERVISOR Office Visit [facility] - Rheumatology [address] [place] [phone] Meryl Cuenca MD [address] [place] [address] [place] [phone] 12/03/2024 10:15 AM VENDING ENTERPRISES SUPERVISOR Office Visit [facility] - Orthopedics [address] [place] [phone] Daryn North MD [address] [place] [address] DIV [place] [address] 12/25/2024 10:00 AM CDT Office Visit [facility] - Infectious Disease [address] [place] [phone] Missy Vogel PA-C [address] [place] [phone] 01/15/2025 10:00 AM CDT Office Visit [facility] - GI [address] [place] [address] [place] [phone] documented as of this encounter Goals Goal Patient Goal Type Associated Problems Recent Progress Patient-Stated? Author Mobility General On track( 025 10:37 AM VENDING ENTERPRISES SUPERVISOR) Ayaka Siegel, RN Note: Expected end date: 10/14/21 The goal is to maintain or improve your mobility at the optimum level for you. Interventions: documented as of this encounter Visit Diagnoses Not on filedocumented in this encounter Care Teams Medical Social Worker Relationship Specialty Start Date End Date Geovanni Rodriguez DO [address] [place], [place] [phone] PCP - General Internal Medicine 09/19/24 documented as of this encounter
--- OUTSIDE RECORDS SUMMARY | 2024-11-27 15:04 | XMS_ITS | Encounter Summary ---
Author Organization [facility] Address [address] [place] [address] Care Team Providers Care Wave Soldering Machine Operator Name Role Phone Geovanni Rodriguez DO Primary Care Provider [phone] Reason for Visit * Reason Comments Hospital Discharge Encounter Details Date Type Department Care Team (Late st Contact Info) Description 11/26/2024 8:00 AM HOT PLATE PLYWOOD PRESS OPERATOR Office Visit Transitional Care at [facility] [address] [place] [phone] Nikhil Godinez III, MD [address] [place] [phone] Surgical site infection (Primary Dx); Elevated [...] Recorded Patient Health Questionnaire-2 Score 1 11/26/2024 [facility] [place] of Occupat ional Health - Occupational Stress [...] any time in the past 12 m [facility], were you homeless or living in a assisted (including now)? No 11/15/2024 Sex and Gender Information Value Date Recorded Sex Assigned at Female 06/03/2023 3:57 PM CDT Gender Identity Female 06/03/2023 3:57 PM CDT Sexual Orientation Not on file documented as of this encounter Last Filed Vital Signs Vital Sign Reading Time Taken Comments Blood Pressure 138/73 11/26/2024 7:43 AM HOT PLATE PLYWOOD PRESS OPERATOR Pulse 70 11/26/2024 7:43 AM HOT PLATE PLYWOOD PRESS OPERATOR Temperature 36.7 C (98 F) 11/26/2024 7:43 AM HOT PLATE PLYWOOD PRESS OPERATOR Respiratory Rate 18 11/26/2024 7:43 AM HOT PLATE PLYWOOD PRESS OPERATOR Oxygen Saturation 97% 11/26/2024 7:43 AM HOT PLATE PLYWOOD PRESS OPERATOR Inhaled Oxygen Concentration - - Weight - - Height 167.6 cm (5' 6 ) 11/26/2024 7:43 AM HOT PLATE PLYWOOD PRESS OPERATOR Body Mass Index - - documented [...] Adeola Pratt DO - 11/26/2024 8:43 AM HOT PLATE PLYWOOD PRESS OPERATOR -START taking ciprofloxacin 500mg TWO TIMES DAILY on 12/02/2024 -STOP taking atorvastatin 20mg as this can impact your liver enzymes, follow with your PCP -Bring BP log to your PCP -Follow up with GI in January for your liver enzymes PLATE PLYWOOD PRESS OPERATOR documented in this encounter Progress Notes [...] 1:25 PM) Appointment with Meryl Cuenca at [facility] - Rheumatology ([phone]) [address] [place] [phone] Tuesday December 10, 2024 10:15 AM Appointment with Daryn North at [facility] - Orthopedics ([phone]) [address] [place] [phone] December 10:00 AM (Arrive by 9:45 AM) Appointment with Missy Vogel I at [facility] - Infectious Disease ([phone]) [address] [place] [phone] January 10:00 AM Appointment with [facility] at [facility] - GI ([phone]) [address] [place] [phone] As directed Lab: COMPREHENSIVE METABOLIC PANEL Complexity [...] at least 2 attempts): n/a Date of Btrm-gr-Npyc Visit: 11/26/2024 Braid Maker used: N (Y/N) If yes, Braid Maker Name/ID#: n/a Previous Report(s) Reviewed: office notes, [...] Lab Preference: [facility] INSURANCE BILL [address] [facility] [phone] Adeola Pratt DO 11/26/2024 PLATE PLYWOOD PRESS OPERATOR Associated attestation - Evelia Choe MD - 11/26/2024 10:48 AM HOT PLATE PLYWOOD PRESS OPERATOR I have seen and examined the [...] st Contact Info) Description 12/02/2024 1:40 PM HOT PLATE PLYWOOD PRESS OPERATOR Office Visit [facility] - Rheumatology [address] [place] [address], [place] [phone] Meryl Cuenca MD [address] [place] [address] 12/03/2024 10:15 AM HOT PLATE PLYWOOD PRESS OPERATOR Office Visit [facility] - Orthopedics [address] [place] [address], [place] [phone] Daryn North MD [address] [place] [address] DIV [place] [address] 12/25/2024 10:00 AM CDT Office Visit [facility] - Infectious Disease [address] [place] [address], [place] [phone] Missy Vogel PA-C [address] [place] [phone] 01/15/2025 10:00 AM CDT Office Visit [facility] - GI [address] [place] [address], [place] [phone] documented as of this encounter Goals Goal Patient Goal Type Associated Problems Recent Progress Patient-Stated? Author Mobility General On track( 025 10:37 AM HOT PLATE PLYWOOD PRESS OPERATOR) Ayaka Siegel, RN Note: Expected end date: 10/14/21 The goal is to maintain or improve your mobility at the optimum level for you. Interventions: documented as of this encounter Procedures Procedure Name Priority Date/Time Associated Diagnosis Comments COMPREHENSIVE METABOLIC PANEL Routine 11/26/2024 8:49 AM HOT PLATE PLYWOOD PRESS OPERATOR Elevated LFTs documented in this encounter Results * (ABNORMAL) COMPREHENSIVE METABOLIC PANEL (11/26/2024 8:49 AM HOT PLATE PLYWOOD PRESS OPERATOR) BUN 23 7 - 26 mg/dL 11/26/2024 12:07 PM [facility] Creatinine 0.88 0.56 - 0.96 mg/dL 11/26/2024 12:07 PM [facility] Sodium 143 136 - 145 mmol/L 11/26/2024 12:07 PM [facility] Potassium 3.9 3.5 - 4.5 mmol/L [...] Lab Venipuncture / Unknown 11/26/2024 8:49 AM HOT PLATE PLYWOOD PRESS OPERATOR 11/26/2024 11:42 AM HOT PLATE PLYWOOD PRESS OPERATOR Nikhil Godinez III, MD LAB - CHEMISTRY O RDERABLES [facility] [address] [place] [address], [facility] [phone] documented in this encounter Visit Diagnoses Diagnosis Surgical site infection- Primary Elevated LFTs Other abnormal blood chemistry documented in this encounter Care Teams Wave Soldering Machine Operator Relationship Specialty Start Date End Date Geovanni Rodriguez DO [address] [place] [address] PCP - General Internal Medicine 09/19/24 documented as of this encounter
--- OUTSIDE RECORDS SUMMARY | 2024-11-27 15:04 | XMS_ITS | Encounter Summary ---
Author Organization [facility] Address [address] [facility] [place] [address] Care Team Providers Care Structural Steel Worker Name Role Phone Michael, Geovanni Nadja DO Primary Care Provider [phone] Encounter Details Date Type Department Care Team [...] Recorded Patient Health Questionnaire-2 Score 1 11/26/2024 [facility] [place] of Occupat ional Health - Occupational Stress [...] any time in the past 12 m [facility], were you homeless or living [...] st Contact Info) Description 12/02/2024 1:40 PM PAYROLL AND BENEFITS COORDINATOR Office Visit [facility] - Rheumatology [address] [facility], [place] [address] Meryl Cuenca MD [address] [place] [address] [address] [place] [phone] 12/03/2024 10:15 AM PAYROLL AND BENEFITS COORDINATOR Office Visit [facility] - Orthopedics [address] [place] [address], [place] [phone] Daryn North MD [facility] DIV [place] [address] 12/25/2024 10:00 AM CDT Office Visit [facility] - Infectious Disease [address] [place] [address], [place] [phone] Missy Vogel PA-C [address] [place] [address] 01/15/2025 10:00 AM CDT Office Visit [facility] - GI [address] [place] [address], [place] [phone] documented as of this encounter Goals Goal Patient Goal Type Associated Problems Recent Progress Patient-Stated? Author Mobility General On track( 025 10:37 AM PAYROLL AND BENEFITS COORDINATOR) Ayaka Siegel, RN Note: Expected end date: 10/14/21 The goal is to maintain or improve your mobility at the optimum level for you. Interventions: documented as of this encounter Visit Diagnoses Not on filedocumented in this encounter Care Teams Structural Steel Worker Relationship Specialty Start Date End Date Geovanni Rodriguez DO [address] [place] [address] PCP - General Internal Medicine 09/19/24 documented as of this encounter
--- OUTSIDE RECORDS SUMMARY | 2024-11-27 15:04 | XMS_ITS | Encounter Summary ---
Author Organization [facility], [facility] Address [address] [facility] [place] [address] Care Team Providers Care Funeral Service Practitioner/Embalmer Name Role Phone Geovanni Rodriguez DO Primary Care Provider [phone] Encounter Details Date Type Department Care Team (Late st Contact Info) Description 11/26/2024 10:30 AM BELLHOP SERVICE CAPTAIN Office Visit [facility] - Orthopedics [address] [place] [address] [place] [address] Daryn North MD [address] [place] [address] [place] [address] Surgical site infection Social History [...] Recorded Patient Health Questionnaire-2 Score 1 11/26/2024 [facility] - [...] time in the past 12 [address] [facility], were you homeless or living in [...] 89.4 kg (197 lb) 11/26/2024 9:39 AM BELLHOP SERVICE CAPTAIN Height 167.6 cm (5' 6 ) 11/26/2024 9:39 AM BELLHOP SERVICE CAPTAIN Body Mass Index 31.8 11/26/2024 9:39 AM BELLHOP SERVICE CAPTAIN documented in this encounter Functional Status Functional [...] st Contact Info) Description 12/02/2024 1:40 PM BELLHOP SERVICE CAPTAIN Office Visit [facility] - Rheumatology [address] [place] [phone] Meryl Cuenca MD [address] [place] [address] [place] [phone] 12/03/2024 10:15 AM BELLHOP SERVICE CAPTAIN Office Visit [facility] - Orthopedics [address] [place] [phone] Daryn North MD [address] [place] [address] [place] [address] 12/25/2024 10:00 AM CDT Office Visit [facility] - Infectious Disease [address] [place] [phone] Missy Vogel PA-C [address] [place] [phone] 01/15/2025 10:00 AM CDT Office Visit [facility] - GI [address] [place] [phone] documented as of this encounter Goals Goal Patient Goal Type Associated Problems Recent Progress Patient-Stated? Author Mobility General On track( 025 10:37 AM BELLHOP SERVICE CAPTAIN) Ayaka Siegel, RN Note: Expected end date: 10/14/21 The goal is to maintain or improve your mobility at the optimum level for you. Interventions: documented as of this encounter Visit Diagnoses Diagnosis Surgical site infection documented in this encounter Care Teams Funeral Service Practitioner/Embalmer Relationship Specialty Start Date End Date Geovanni Rodriguez DO [address] [place] [address] PCP - General Internal Medicine 09/19/24 documented as of this encounter
--- OUTSIDE RECORDS SUMMARY | 2024-11-27 15:04 | XMS_ITS | Continuity of Care Document ---
Author Organization [facility] Address [address] [place] [address] Phone Care Team Providers Care Painter Hand Name Role Phone Alex Khan MD Unavailable Unavailable Advance Directives Directive Yes / No Effective Date File Name No Information Encounters Encounter Description Practice Location Reason(s) For Visit Diagnoses Date Provider Providers Copied on Encounter [facility], [address], [place], [place], [id number], tel:[phone] [facility] No Information Erin Johnson. [address] [place], [place], [id number], [place]. tel:[phone] Referring Provider: Sukumar Quiles, [address], [address]. tel:[phone] Family History Family Member Type Diagnosis Age At Onset No Information Payers Payer name Insurance type Covered green party ID Authoriza tion(s) [facility] CI [id number] Social History Type Description Quantity Date Captured [...]
--- NOTE | 2024-11-27 15:12 | ED_ITS ---
HPI - Recheck/Abnormal Lab/Rx General Chief Complaint: Recheck/Abnormal Lab/Rx Stated Complaint: suspected mid-line leak Time Seen by Provider: 11/27/24 14:35 History of Present Illness HPI narrative: Patient has a left midline, she has 5 more doses of antibiotics but earlier noticed her midline has been leaking. Related Data Home Medications ?Medication ?Instructions ?Recorded ?Confirmed ?Last Taken ?Type clindamycin HCl 300 mg capsule mg 11/09/24 Unknown History Allergies Allergy/AdvReac Type Severity Reaction Status Date / Time meperidine Allergy Mild Hives; Verified 11/09/24 08:33 hand swelling Sulfa (Sulfonamide Allergy Mild Unknown Verified 11/09/24 08:33 Antibiotics) sulfanilamide Allergy Mild Unknown Verified 11/09/24 08:33 adhesive AdvReac Mild REDNESS Verified 11/09/24 08:33 Review of Systems Review of Systems: All systems reviewed & are unremarkable except as noted in HPI and below PMFSH Past Medical History Medical History Allergic rhinitis GERD (gastroesophageal reflux disease) Hyperlipidemia Hypertension Pancreatitis Vitamin D deficiency, unspecified Surgical History Surgical History H/O parathyroidectomy H/O: hysterectomy History of ERCP 2013 with biliary pancreatitis, choledocholithiasis History of foot surgery History of laparoscopic cholecystectomy 2013 History of spinal surgery Surgery on her lumbar spine via anterior approach Family History Family History (Updated 08/04/24 @ 08:59 by KAYE Smith) Sibling Hypertension Family history of heart disease in male family member before age 55 Mother Family history of lung cancer, Onset Age: 85 Father Cerebrovascular accident, Onset Age: 82 Other Diabetes mellitus Social History Social History (Updated 08/04/24 @ 10:57 by KAYE Smith) Social History: Pt is and has 2 daughters with 2 grandsons. She denies having pets and would like her Christian to be her surrogate if needed. Patient wishes to be a full code at this time. Smoking packs per day: 2 Smoking cigarettes per day: 40.0 Years smoked: 15 Smoking pack-years: 30.00 Smoking status: Former smoker Tobacco type: cigarettes Second hand tobacco smoke exposure: No Smoking end date: 10/15/84 Alcohol intake: current Drinks per week: 1 Alcohol use details: pt drinks once every 6months to 1 year Substance use: never Substance use type: does not use Last use: 1985 Do You Feel Safe in your Home?: Yes Lack of Transportation: No Lack of Food: Never True Current Housing: I Have Housing Concerned About Future Housing: No Difficulty Paying Gas/Electric Bills: No Difficulty Paying for Meds: No Currently Unemployed: No Education: High School Diploma/GED Difficulty w/ Childcare or Family Care: No Living arrangements: with family Occupation/Education: retired 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 EYES: EOMI, conjunctiva normal ENT: Hearing grossly intact LUNGS: Nonlabored breathing. HEART: [Regular rate and rhythm] ABD: [Soft], [nontender to palpation] EXT: Normal range of motion; left midline in place SKIN: [No rashes or lesions.] NEURO: [Alert and oriented x 3. No gross focal sensory or strength deficits.] PSYCH: Normal affect Course Vital Signs Vital signs: Vital Signs Temperature 97.5 F L 11/27/24 13:30 Pulse Rate 67 11/27/24 13:30 Respiratory Rate 16 11/27/24 13:30 Blood Pressure 151/65 H 11/27/24 13:30 Pulse Oximetry 100 11/27/24 13:30 Oxygen Delivery Room Air 11/27/24 13:30 Temperature 98.2 F 11/27/24 16:12 Pulse Rate 68 11/27/24 16:12 Respiratory Rate 18 11/27/24 16:12 Blood Pressure 162/75 H 11/27/24 16:12 Pulse Oximetry 100 11/27/24 16:12 Oxygen Delivery Room Air 11/27/24 13:30 MDM - Recheck/Abnormal Lab/Rx MDM Narrative Medical decision making narrative: Patient presents here for midline malfunction, hospital midline nurse did come trouble shoot it, ended up taking out and replacing a new midline that is intact and works well. She has medications at home, only needs 6 more doses, will follow-up with her doctor. Discharge Plan Discharge Clinical Impression: PICC line infiltration Patient Disposition: Home, Self-Care Condition: Stable Instructions: PICC (Peripherally Inserted Central Catheter) (DC) Additional Instructions: Please follow-up with your doctor, feel free to return for any further issues. Patient Language: Amharic Prescriptions: No Action clindamycin HCl 300 mg capsule Wegovy 0.25 mg/0.5 mL pen injector 0.25 mg subcut WEEKLY Qty: 2 0RF Rx Instructions: administer weeks 1 through 4 of therapy amlodipine [Norvasc] 5 mg tablet 5 mg PO QAM Qty: 90 3RF omeprazole 40 mg capsule,delayed release(DR/EC) See Rx Instructions .ROUTE .COMPLEX Qty: 180 3RF Dose Instruction: TAKE 1 CAPSULE BY MOUTH TWICE A DAY Rx Instructions: TAKE 1 CAPSULE BY MOUTH TWICE A DAY famotidine 40 mg tablet 40 mg PO DAILY Qty: 30 2RF ergocalciferol (vitamin D2) 1,250 mcg (50,000 unit) capsule 50,000 unit PO .every two weeks Qty: 13 0RF Rx Instructions: mondays losartan 100 mg tablet 100 mg PO DAILY Qty: 90 3RF atorvastatin 20 mg tablet 20 mg PO DAILY Qty: 90 3RF Follow-up/Referrals: Geovanni Rodriguez DO [Primary Care Provider] -
--- NOTE | 2024-11-27 15:28 | PC.NURSE ---
I was asked to assess the patients previously placed midline that appeared to be leaking. Upon flushing the midline there was leaking noticed around the insertion site. I changed the dressing to see if the leaking was at a connection site but it very clearly was leaking around the site of insertion. That midline was removed intact. I discussed my finding with Dr. Hsu who ordered a new midline as the patient still has 6 more days of antibiotics.
[2024-11-27 16:12] VITALS: BP 162/75; PULSE 68; RESP 18; TEMP 36.8; O2SAT 100
== END 2024-11-27 16:17 | disposition home or self-care (01) ==
PROVIDERS: Emergency Provider Emergency Medicine; PCP Internal Medicine
DX: T82.594A Other mechanical complication of infusion catheter, initial encounter (principal); I10 Essential (primary) hypertension; E78.5 Hyperlipidemia, unspecified; E55.9 Vitamin D deficiency, unspecified; K21.9 Gastro-esophageal reflux disease without esophagitis; Z87.891 Personal history of nicotine dependence; Z90.89 Acquired absence of other organs; Z90.710 Acquired absence of both cervix and uterus; Z90.49 Acquired absence of other specified parts of digestive tract; Y84.8 Other medical procedures as the cause of abnormal reaction of the patient, or of later complication, without mention of misadventure at the time of the procedure
CPT/HCPCS: 36556; 96360; 99283; C1751; J2003

== ENCOUNTER 2025-03-02 14:54 | Emergency (ER) | payer MEDICARE, OTHER, SELFPAY ==
--- NOTE | ~2025-03-02 | XR_ITS ---
EXAM: XR hand RT min 3V DATE: 03/02/2025 15:59 HISTORY: crush injury/lac Rt 3rd finger, lateral right hand pain . COMPARISON: None available. FINDINGS: Osteopenia. No fracture or dislocation. No lytic or blastic lesion. Mild scattered degener ative changes. No erosion or periosteal change. Mild soft tissue swelling over the third digit. [place] ge material over the third digit. Adjacent soft tissue irregularity may represent laceration. No radi opaque foreign body. IMPRESSION: No acute osseous finding the right hand. Reviewed, dictated and finalized at location K.
[2025-03-02 15:05] VITALS: BP 141/87; PULSE 69; RESP 16; TEMP 36.8; O2SAT 97
[2025-03-02] MEDS: TETANUS,DIPHTHERIA,AC PERTUSSIS ADULT (0.5 ML) BOOSTRIX IM (16:16)
[2025-03-02] MEDS: LIDOCAINE 1% LOCAL INJ 2 ML AMPUL 6 ML INFILTRATE (16:17)
--- NOTE | 2025-03-02 17:52 | ED_ITS ---
HPI - Wound/Laceration General Chief Complaint: Wound/Laceration Stated Complaint: Cut Finger Time Seen by Provider: 03/02/25 15:35 Source: patient and RN notes reviewed Mode of arrival: ambulatory Limitations: no limitations History of Present Illness HPI narrative: 65-year-old female presents [facility] with her children complaining of right middle finger injury approximately 1 hour ago. Patient said she was opening her window within the window fell and crushed her right middle finger. Patient also states she has lacerations to right middle finger after the injury. Also noticed bruising to the right thumb area after the injury. Patient denies any numbness or tingling. Patient is tetanus is not up-to-date. Patient has bleeding controlled prior to arrival. Related Data Home Medications Medication Instructions Recorded Confirmed Last Taken Type cholecalciferol (vitamin D3) 25 25 mcg PO DAILY 11/28/24 02/09/25 Unknown Hist ory mcg (1,000 unit) capsule ciprofloxacin HCl 500 mg tablet 500 mg PO Q12H 02/06/25 02/09/25 Unknown History Allergies Allergy/AdvReac Type Severity Reaction Status Date / Time meperidine Allergy Mild Hives; Verified 03/02/25 16:32 hand swelling Sulfa (Sulfonamide Allergy Mild Unknown Verified 03/02/25 16:32 Antibiotics) sulfanilamide Allergy Mild Unknown Verified 03/02/25 16:32 adhesive AdvReac Mild REDNESS Verified 03/02/25 16:32 Review of Systems Review of Systems: CONSTITUTIONAL: Denies fever, chills, or sweats. EYES: Denies visual changes, redness, or discharge. ENT: Denies rhinorrhea, congestion, sore throat, or otalgia. CARDIOVASCULAR: Denies chest pain, palpitations, or edema. RESPIRATORY: Denies cough or dyspnea. GASTROINTESTINAL: Denies abdominal pain, nausea, vomiting, or diarrhea. GENITOURINARY: Denies dysuria or hematuria. SKIN: Denies rash or itching. Positive for laceration MUSCULOSKELETAL: Denies back pain, joint pain, or myalgia. Positive for hand injury. NEUROLOGIC: Denies headache, numbness, or weakness. PSYCHIATRIC: Denies anxiety or depression. All other systems reviewed are negative, except as documented in HPI. [facility] Past Medical History Medical History Hypertension GERD (gastroesophageal reflux disease) Hyperlipidemia Allergic rhinitis Pancreatitis Vitamin D deficiency, unspecified Surgical History Surgical History History of ERCP 2013 with biliary pancreatitis, choledocholithiasis History of laparoscopic cholecystectomy 2013 History of spinal surgery Surgery on her lumbar spine via anterior approach H/O parathyroidectomy H/O: hysterectomy History of foot surgery Family History Family History Sibling Hypertension Family history of heart disease in male family member before age 55 Mother Family history of lung cancer, Onset Age: 85 Father Cerebrovascular accident, Onset Age: 82 Other Diabetes mellitus Social History Social History Social History: Pt is and has 2 daughters with 2 grandsons. She denies having pets and would like her Christian to be her surrogate if needed. Patient wishes to be a full code at this time. Smoking packs per day: 2 Smoking cigarettes per day: 40.0 Years smoked: 15 Smoking pack-years: 30.00 Smoking status: Former smoker Tobacco type: cigarettes Second hand tobacco smoke exposure: No Smoking end date: 10/15/84 Alcohol intake: current Drinks per week: 1 Alcohol use details: pt drinks once every 6months to 1 year Substance use: never Substance use type: does not use Last use: 1985 Do You Feel Safe in your Home?: Yes Lack of Transportation: No Lack of Food: Never True Current Housing: I Have Housing Concerned About Future Housing: No Difficulty Paying Gas/Electric Bills: No Difficulty Paying for Meds: No Currently Unemployed: No Education: High School Diploma/GED Difficulty w/ Childcare or Family Care: No Living arrangements: with family 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 There is no relevant family history pertinent to the patient complaint. Exam Narrative: GENERAL: This is a well-nourished, well-developed adult, in no apparent distress. They are non ill-appearing, nontoxic appearing. HEAD: normocephalic, atraumatic. EYES: Sclera clear/white. Conjunctiva normal. Vision is grossly intact. Extraocular movements intact EARS: External ears normal, Hearing grossly intact. NOSE: External nose normal THROAT: Mucous membranes moist NECK: Neck supple CARDIOVASCULAR: Regular rate and rhythm RESPIRATORY: Respiratory rate normal, respiratory effort nonlabored, no respiratory distress SKIN: warm, Dry, intact with no suspicious lesions or rash, good texture and turgor. Laceration documented under extremities. NEURO: awake, alert, and oriented to person, place and time. There were no obvious focal neurologic abnormalities. EXTREMITIES: Right middle finger: Linear laceration to the dorsal surface of the finger distal to the PIP. Laceration measuring approximately 0.6 cm there is a curved laceration to the palmar surface the right middle finger. Located in between the PIP and the DIP measuring approximately 1.5 cm long. Hemostasis achieved with direct pressure. Patient is able to bend her right middle finger against resistance with flexion and extension at the PIP, PIP, MCP. Capillary refill less than 2 seconds. Sensation is normal. Ulnar and radial nerve distribution intact. Neurovascular status intact distal to injury. Radial pulse 2 +and palpable. Her right hand: No obvious deformity, swelling in injury, or redness. Ecchymosis present around the distal end of the right thumb proximal to the wrist. No bony tenderness or tenderness to palpation. Patient is able to make a fist, stop sign, okay sign, thumbs-up sign. BACK: Nontender without deformity. No CVA tenderness. Course Course Emergency Course: Portions of this record may have been created with voice recognition software Level of Care: Express Care Visit Vital Signs Vital signs: Vital Signs Temperature 98.3 F 03/02/25 15:05 Pulse Rate 69 03/02/25 15:05 Respiratory Rate 16 03/02/25 15:05 Blood Pressure 141/87 H 03/02/25 15:05 Pulse Oximetry 97 03/02/25 15:05 Oxygen Delivery Room Air 03/02/25 15:05 Temperature 98.3 F 03/02/25 15:05 Pulse Rate 69 03/02/25 15:05 Respiratory Rate 16 03/02/25 15:05 Blood Pressure 141/87 H 03/02/25 15:05 Pulse Oximetry 97 03/02/25 15:05 Oxygen Delivery Room Air 03/02/25 15:05 Reviewed Procedures Laceration Laceration 1: Date: 03/02/25 Time: 17:15 Site: hand (Right middle finger) Side (If applicable): right Size (cm): 0.6 Description: linear Depth: simple, single layer Local Anesthetic: lidocaine 1% Amount of anesthesia used (mL): 6 (Digital block) Pre-repair: wound explored and irrigated ====== Skin Level ====== Skin layer closed with: nylon Size (cm): 5-0 Number of sutures: 3 Technique: simple, interrupted ====== Subcutaneous Layer ====== ====== Muscle Layer ====== ====== Tendon Layer ====== Dressing: Nonstick with gauze and middle finger splint. Patient tolerated procedure well. Laceration 2: Date: 03/02/25 Time: 17:15 Site: hand (Right middle finger) Side (If applicable): right Size (cm): 1.5 Description: linear (Slightly curved at the ends) Depth: simple, single layer Local Anesthetic: lidocaine 1% Amount of anesthesia used (mL): 6 (Digital block) Pre-repair: wound explored and irrigated ====== Skin Level ====== Skin layer closed with: nylon Size (cm): 5-0 Number of sutures: 8 Technique: simple, interrupted ====== Subcutaneous Layer ====== ====== Muscle Layer ====== ====== Tendon Layer ====== Dressing: Nonstick dressing with gauze and middle finger splint. Patient tolerated procedure well MDM - Wound/Laceration MDM Narrative Medical decision making narrative: X-ray showed no evidence of acute fracture findings are right hand and right middle finger. Tetanus was updated today. No evidence of tendon injury. Lacerations successfully closed with sutures. Patient's recurrent the on chronic antibiotics for a chronic skin infection from her previous surgery of her leg. Will go ahead and have patient continue her regimen of ciprofloxacin. Low suspicion for infection from injury patient probably came to the Express Care for management. Discussed physical exam findings. Advised supportive measures and signs/symptoms to go to the ER. Pt is appropriate for outpt treatment and f/u. Differential Diagnosis Differential diagnosis: Likely laceration, abrasion and other (Finger fracture) Imaging Data Radiologist's impression: ITS Impressions Hand X-Ray 03/02/25 16:04 IMPRESSION: No acute osseous finding the right hand. Critical Care Time Critical Care Time Critical Care Time: No Discharge Plan Discharge Clinical Impression: Finger laceration Qualifiers: Encounter type: initial encounter Finger: middle finger Damage to nail status: without damage Foreign body presence: without foreign body Laterality: right Qualified Code(s): S61.212A - Laceration without foreign body of right middle finger without damage to nail, initial encounter Patient Disposition: Home Condition: Stable Instructions: Care For Your Stitches (ED), Laceration (ED) Additional Instructions: Your x-ray of your hand and finger show no evidence of fracture or acute findings. Her tetanus was updated today. Your sutures need to be removed in 10-14 days. Wear the dressing that has been applied for the first 24 hours to allow a scab to start forming. After this, you may remove and wash as normal with mild soap and water. For the finger splint to keep her finger straight while the laceration heals. Apply a nonstick dressing on it and change it daily until it heals. Do NOT wash with peroxide or alcohol. Do NOT apply antibiotic ointment. Do not soak or vigorously scrub the wound. Take Tylenol or ibuprofen at home for pain, if able. Follow up with your PCP 3-5 days. Go to ER with any signs of infection such as redness, swelling, increased pain, or drainage. Follow-up with hand specialist if you develop any issues with with your finger function or suture problems. Patient Language: Ethiopian Prescriptions: No Action cholecalciferol (vitamin D3) 25 mcg (1,000 unit) capsule 25 mcg PO DAILY ciprofloxacin HCl 500 mg tablet 500 mg PO Q12H famotidine 40 mg tablet 40 mg PO DAILY Qty: 90 2RF hydrochlorothiazide 25 mg tablet See Rx Instructions .ROUTE .COMPLEX Qty: 90 3RF Dose Instruction: TAKE 1 TABLET BY MOUTH EVERY DAY Rx Instructions: TAKE 1 TABLET BY MOUTH EVERY DAY amlodipine 5 mg tablet 5 mg PO DAILY Qty: 90 1RF lorazepam 0.5 mg tablet 0.5 mg PO ONCE Qty: 1 0RF Rx Instructions: Take 30-45 min before procedure. Follow-up/Referrals: Arnaldo De MD [Physician] - Geovanni Rodriguez DO [Primary Care Provider] - Time of Disposition: 17:45
== END 2025-03-02 17:47 | disposition home or self-care (01) ==
PROVIDERS: PCP Internal Medicine
DX: S61.212A Laceration without foreign body of right middle finger without damage to nail, initial encounter (principal); W20.8XXA Other cause of strike by thrown, projected or falling object, initial encounter; Z23 Encounter for immunization; Z87.891 Personal history of nicotine dependence; I10 Essential (primary) hypertension; E78.5 Hyperlipidemia, unspecified; K21.9 Gastro-esophageal reflux disease without esophagitis; E55.9 Vitamin D deficiency, unspecified; Z90.89 Acquired absence of other organs
CPT/HCPCS: 12001; 73130; 90471; 90715; 99213; G0463; J2003

== ENCOUNTER 2025-04-20 14:36 | Outpatient (CLI) | payer MEDICARE, OTHER, SELFPAY ==
--- NOTE | ~2025-04-20 | MM_ITS ---
EXAMINATION: MM screening john BI w [facility] HISTORY: Screening TECHNIQUE: Craniocaudal and mediolateral oblique 3-D tomosynthesis images were obtained and synthetic 2-D images were generated. CAD analysis was submitted and interpreted. COMPARISON: Comparison to multiple prior studies sequentially, with oldest reviewed study dated 11/12. BREAST PARENCHYMAL COMPOSITION: Not dense: There are scattered areas of fibroglandular density. FINDINGS: There is no evidence of suspicious mass, calcification, or architectural distortion to sugg est malignancy in either breast. There has been no suspicious interval change. IMPRESSION: 1. No mammographic evidence of malignancy. 2. Recommend routine screening mammography in one year. BI-RADS Category 1: Negative Reviewed, dictated and finalized at location A.
--- OUTSIDE RECORDS SUMMARY | 2025-04-20 14:40 | XMS_ITS | Referral Summary ---
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 Gender Identity Not on file Sexual Orientation [...] 11:33 AM CDT Height 167.6 cm (5' 6) 07/08/2024 11:3 3 AM CDT Body Mass [...] Recently Relevant to Health Maintenance Insurance MEDICARE [facility] Address: [address] [phone] [facility] CHOICE PLUS MEDICARE [facility] Care Teams Train Director Relationship Specialty Start Date End Date Geovanni Rodriguez DO [address] [facility] [address] [place], [place] [id number] PCP - General Internal Medicine 07/08/24 Erika Lopes OT Occupational Therapist Occupational Therapy 06/10/18 Celestino Parra MD Surgeon Vascular Surgery 02/19/19 Fan Edwards Referring Physician Gastroenterology 02/19/19
--- OUTSIDE RECORDS SUMMARY | 2025-04-20 14:40 | XMS_ITS | Clinical Summary ---
Author Organization [facility] [place] [address] [facility] [address] Address [address] [place] [id number] Care Team Providers Care Cane Weigher Name Role Phone ChatoniteshSoo rosadomigdalia ALMEIDA Unavailable Unavailable Celestino Parra MD Unavailable [phone] Fan Edwards Unavailable Unavailable Geovanni Rodriguez DO Primary Care Provider [phone] Allergies Active Allergy Reactions Criticality Noted Date [...] - (Added by TW Conv) Parathyroid disorder High cholesterol Hypertension Arthritis Acid reflux PONV [...] on file Legal Sex Female 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 Gender Identity Not on file Sexual Orientation [...] Screening 02/20/2020 02/19/2019 Well Visit 65+ 2023 Covid-19 Vaccine (7 - 2023-2 5 season) 2025 08/10/2024, 07/03/2023, 04/02/2022, Additional history exists Influenza Vaccine (#1) 2025 4, 07/03/2023, 06/26/2022, Additional history exists Colon Cancer Screening-Colonoscopy 03/17/2026 03/17/2016 DTaP/Tdap/Td Vaccine (2 - Td or Tdap) 07/12/2029 07/12/2019 Colon Cancer Screening-CT Colonography Discontinued 03/17/2016 Colon Cancer Screening-DNA Stool Discontinued 03/17/20 16 Colon Cancer Screening-FIT Discontinued 03/17/2016 Colon Cancer Screening-Sigmoidoscopy Discontinued 03/17/2016 Zoster Vaccine Completed 08/29/2021, 06/22/2021 Pneumococcal vaccine 65+ Completed 07/25/2023 Procedures Procedure Name Priority Date/Time Associated Diagnosis Comments COLONOSCOPY REPORT 03/17/2016 from Last 3 Months or Most Recently Relevant to Health Maintenance Results * COLONOSCOPY REPORT (03/17/2016) Anatomical Region Laterality Modality Other Narrative 03/17/2016 Ordered by an unspecified provider. Historical Provider GI PROCEDURE ORDERABLES F inal Result from Last 3 Months or Most Recently Relevant to Health Maintenance Insurance MEDICARE [facility] CHOICE PLUS MEDICARE [facility] Care Teams Cane Weigher Relationship Specialty Start Date End Date Geovanni Rodriguez DO [address] [place] [address] PCP - General Internal Medicine 07/08/24 Erika Lopes OT Occupational Therapist Occupational Therapy 06/10/18 Celestino Parra MD Surgeon Vascular Surgery 02/19/19 Fan Edwards Referring Physician Gastroenterology 02/19/19
--- OUTSIDE RECORDS SUMMARY | 2025-04-20 14:40 | XMS_ITS | Clinical Summary ---
Author Organization [facility] [employer] Address [address] [place] [address] Care Team Providers Care Roll On Worker Name Role Phone Geovanni Rodriguez Primary Care Provider Source Comments [facility],non-owned Affiliates and Associated Physician Practices is amultiple site organization consisting of ambulatory clinics and hospital sitesin [place], [place], [place] and [place]. This disclosure is being madepursuant to the Care Everywhere program and may not contain all information available regarding this patient. Last updated 18.[facility] [employer] Allergies Active Allergy Reactions Criticality Noted Date Comments Amoxicillin Other Low 11/22/2022 Yeast infection Meperidine Urticaria Medium 11/22/2022 Nickel Other Low 02/14/2021 Reaction: SKIN REDNESS & HOTNESS, Skin Adhesives Rash Medium 03/01/2021 Sulfa Drugs Rash,Other Medium 02/14/2021 Reaction: RASH, Reaction: REDNESS, Medications * Be aware that medications may not be up to date on this document. Alwaysverify current medications with the patient. omeprazole (PRILOSEC) 40 MG capsule Take 1 (one) capsule by mouth once daily 12/29/2020 Active amLODIPine (Norvasc) 2.5 MG tabletIndicatio ns:Hypertension Take 1 (one) tablet by mouth once daily Reasons: High Blood Pressure Active famotidine (Pepcid) 40 MG tablet Take 1 (one) tablet by mouth at bedtime for 60 days 30 tablet 1 11/26/2024 Active ciprofloxacin (Cipro) 500 MG tabletIndicatio ns:Surgical site infection Take 1 (one) tablet by mouth 2 times daily for 90 days 180 tablet 12/30/2024 Active gabapentin (Neurontin) 300 MG capsule TAKE 1 CAPSULE BY MOUTH THREE TIMES A DAY 90 capsule 1 01/08/2025 Active Vitamin D, Ergocalciferol, 69138 units CAPS Take 1 (one) capsule by mouth every 14 days Active ursodiol (Actigall) 250 MG tablet Take 2 (two) tablets by mouth 3 times daily with meals 180 tablet 11 03/06/2025 Active amLODIPine (Norvasc) 5 MG tablet Take 1 (one) tablet by mouth once daily 02/18/2025 Active Active Problems Problem Noted Date Diagnosed Date Closed fracture of right tib ia and fibula, initial encounter 09/19/2024 Primary osteoarthritis of right ankle 06/13/2021 UMA positive 05/26/2021 Arthralgia of right ankle 03/15/2021 Fracture of lateral malleolu s of right fibula at syndesmosis Plantar fasciitis Encounters Date Type Department Care Team Description 03/27/2025 Orders Only [facility] - GI [address] [place] [phone] Arina Linn MD Fatty liver ; Autoimmune hepatitis (HCC); Cholestatic liver disease (HCC); Abnormal results of thyroid function studies; Abnormal findings on diagnostic imaging of other specified body structures 03/26/2025 Orders Only [facility] - GI [address] [place] [phone] Arina Linn MD Fatty liver ; Prediabetes; Hypothyroidism, unspecified type 03/23/2025 9:02 AM CDT Anesthesia Event [facility] [address] [place] [phone] Simeon Sanches MD [place], [place] A, [employer]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 03/23/2025 8:55 AM CDT - 03/23/2025 10:00 AM CDT Surgery [facility] [address] [place] [address] Jacinto Landrum MD ERCP +/- EUS & liver BX 03/23/2025 7:43 AM CDT - 03/23/2025 12:24 PM CDT Hospital Encounter [facility] [address] [place] [address] Jacinto Landrum MD Gastroenterology Discharge Disposition: Home or Self Care 03/23/2025 Travel 03/19/2025 10:00 AM CDT Office Visit [facility] - Infectious Disease [address] [place] [phone] Missy Vogel PA-C Hardware complicating wound infection, subsequent encounter (Primary Dx); Surgical site infection 03/19/2025 Travel 03/18/2025 10:30 AM CDT Office Visit [facility] - Orthopedics [address] [place] [phone] Daryn North MD Closed fracture of right tibia and fibula, initial encounter (Primary Dx); Closed bicondylar fracture of right tibial plateau 03/18/2025 9:59 AM CDT - 03/18/2025 11:59 PM CDT Hospital Encounter [facility] [address] [facility] [place] [address] Daryn North MD Discharge Disposition: Home or Self Care 03/18/2025 Travel 03/17/2025 Travel 03/12/2025 Telephone [facility] - GI [address] [place] [phone] Arina Linn MD Update 03/12/2025 Orders Only [facility] - GI [address] [place] [phone] Arina Linn MD Elevated LFTs ; Autoimmune hepatitis (HCC) 03/11/2025 Telephone [facility] - GI [address] [place] [phone] Saw Connor RN Procedure (internal referral: ERCP +/- EUS & liver BX for SILVIO from Dr. Garcia to Dr. Gregory) 03/06/2025 Telephone [facility] - [address] [phone] Abigail Garcia MD Medication Issue 03/05/2025 3:00 PM CDT Office Visit [facility] - GI [address] [place] [phone] Abigail Garcia MD Cholestatic liver disease (HCC) (Primary Dx); Abnormal findings on diagnostic imaging of liver and biliary tract; Atrophic pancreas (HCC); Quit consuming alcohol in remote past; History of ERCP 03/05/2025 2:30 PM CDT Procedure visit [facility] - [address] [phone] Abigail Garcia MD Cholestatic hepatitis 03/05/2025 Travel 03/04/2025 7:00 AM CDT - 03/04/2025 11:59 PM CDT [facility] [address] [place] [phone] Davida Tello PA-C Discharge Disposition: Home or Self Care 03/04/2025 Travel 03/03/2025 Orders Only [facility] - Orthopedics [address] [place] [phone] Daryn North MD Closed fracture of right tibia and fibula with routine healing, subsequent encounter 01/30/2025 Results Follow-Up [facility] - [address] [phone] Davida Tello PA-C from Last 3 Months Immunizations Immunization Administration Dates Next Due Covid Moderna primary [...] Answer Date Recorded Patient Health Questionnaire-2 Score 0 03/19/2025 [facility] - [...] any time in the past 12 [facility], were you homeless or living in a fpc (including now)? 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 Gender Identity Female 06/03/2023 3:57 PM CDT Sexual Orientation Not on file Last Filed Vital Signs Vital Sign Reading Time Taken Comments Blood Pressure 176/86 03/23/2025 12:00 PM CDT Pulse 64 03/23/2025 12:00 PM CDT Temperature 35.8 C (96.5 F) 03/23/2025 9:55 AM CDT Respiratory Rate 16 03/23/2025 12:0 0 PM CDT Oxygen Saturation 97% 03/23/2025 12: 00 PM CDT Inhaled Oxygen Concentration 40% 12:23 PM NUTRITION PROGRAM INSTRUCTOR Weight 96.6 kg (212 lb 14.4 oz) 03/23/2025 8:13 AM CDT Height 167.6 cm (5' 6) 03/23/2025 8:13 AM CDT Body Mass Index 34.36 03/23/2025 8:13 AM CDT Plan of Treatment Upcoming Encounters Date Type Department Care Team (Late st Contact Info) Description 04/23/2025 1:00 PM CDT Office Visit [facility] - GI [address] [place] [phone] Abigail Garcia MD [address] [place] [address] [address] [place] [address] 06/17/2025 10:30 AM CDT Office Visit [facility] - Orthopedics [address] [place] [phone] Daryn North MD [address] [place] [address] [place] [address] 06/18/2025 12:00 PM CDT Office Visit [facility] - GI [address] [place] [phone] Abigail Garcia MD [address] [place] [address] [address] [place] [phone] 07/01/2025 9:00 AM CDT Office Visit [facility] - Rheumatology [employer], [place] [phone] Meryl Cuenca MD [address] [place] [address] [address] DIV [place] [address] Health Maintenance Due Date Last Done Comments BONE DENSITY TESTING 1960 COLOGUARD (AGES 45-75) - COLON CA SCREENING 1958 CT COLONOGRAPHY - COLON CA SCREENING 1960 FIT - COLON CA SCREENING 1958 FLEX SIG - COLON CA SCREENING 1960 MAMMOGRAM 1960 MEDICARE AWV 12 MONTHS 1958 DTAP/TDAP/TD VACCINES (1 - Tdap) 1977 PNEUMOCOCCAL VACCINE 50+ (1 of 1 - PCV) 01/25/2008 ZOSTER VACCINE (1 of 2) 01/25/2008 06/27/2023 Respiratory Syncytial Virus (RSV) Vaccine Pt: or over 60 yrs (1 - Risk 60-74 years 1-dose series) 2018 COVID-19 VACCINE ( season) 2025 08/10/2024, 07/03/2023, 04/02/2022, Additional history exists INFLUENZA VACCINE (#1) 2025 4, 07/03/2023, 06/27/2023, Additional history exists SCREENING FOR DIABETES 03/13/2028 5, 01/07/2025, 12/25/2024, Additional history exists LIPID TESTING 03/30/2030 03/30/2025, 11/22/2022 COLON MONITORING 05/30/2034 05/30/2024, 05/30/2024 COLONOSCOPY - COLON CA SCREENING 05/30/2034 05/30/2024, 05/30/2024 Colorectal Cancer Screening 05/30/2034 DEPRESSION SCREENING Completed 10/22/2024, 09/29/20 24 HEPATITIS [...] complete this topic MENINGOCOCCAL (Group B) VACCINE SHARED DECISION-MAKING Aged Out No longer eligible based on patient's age to complete this topic MENINGOCOCCAL GROUPS A/C/Y/W VACCINE Aged Out No longer eligible based on patient's age to complete this topic Goals Goal Patient Goal Type Associated Problems Recent Progress Patient-Stated? Author Mobility General On track( 025 10:37 AM NUTRITION PROGRAM INSTRUCTOR) No Ayaka Lockett, RN Note: Expected end date: 10/14/21 The goal is to maintain or improve your mobility at the optimum level for you. Interventions: Mobility General No Daphne Steinberg Note: Expected end date: 2 months The goal is to maintain or improve your mobility at the optimum level for you. Interventions: Perform independent activity per your ability Medication Management General On track( 025 2:52 PM CDT) No Skyler Abebe, SADAF Note: Expected end date: ongoing Interventions: Take all medications as prescribed Let your doctor know right away about any changes in your medications Make sure to request a refill of your medication at least one week prior to your last dose Medical Devices Implanted Type Area Basket Hand Weaver Device Identifier Shelf Expiration Date Model / Serial / Lot Screw 3.5mm 50mm 2.5mm Slf-Tap Sm Hex Implanted:Qty : 1 on 03/15/2021 by Sukumar Magaña, DO at [facility] Right: [employer] [id number] / / Screw 3.5mm 55mm 2.5mm Slf-Tap Sm Hex Implanted:Qty : 1 on 03/15/2021 by Sukumar Magaña, DO at [facility] Right: [employer] [id number] / / Plate 2 Hl 2 Comp Colr 25mm 1/3 Tblr Implanted:Qty : 1 on 03/15/2021 by Sukumar Magaña DO at [facility] Right: [employer] [id number] / / Sub Bngf 4.8mm Ostst Ca Slf Pelt Implanted:Qty : 1 on 03/15/2021 by Sukumar Magaña DO at [facility] [employer] 9453-6792 / / [id number] Screw 4.7mm 5.6mm 36mm 2.5mm Ft Va Lopro Implanted:Qty : 2 on 10/10/2024 by Daryn North MD at [facility] Right: [employer] 11/26/2033 [id number] / / [id number] Screw 4.7mm 5.6mm 28mm 2.5mm Ft Va Lopro Implanted:Qty : 1 on 10/10/2024 by Daryn North MD at [facility] Right: [employer] 03/12/2032 [id number] / / [id number] Screw 4.7mm 5.6mm 32mm 2.5mm Ft Va Lopro Implanted:Qty : 1 on 10/10/2024 by Daryn Notrh MD at [facility] Right: [employer] [id number] 10/19/2030 [id number] / / [id number] Agent Hmst Thrmb Kt Surgiflo 2ml Implanted:Qty : 2 on 10/10/2024 by Daryn North MD at [facility] Right: [employer] [id number] / / Screw 3.5mm 26mm Slf-Tap Cortx Evos Strl Implanted:Qty : 1 on 10/10/2024 by Daryn North MD at [facility] Right: [employer] [id number] / / Screw 3.5mm 32mm Slf-Tap Cortx Evos Strl Implanted:Qty : 1 on 10/10/2024 by Daryn North MD at [facility] Right: [employer] [id number] / / Screw 3.5mm 34mm Slf-Tap Cortx Evos Strl Implanted:Qty : 1 on 10/10/2024 by Daryn North MD at [facility] Right: [employer] [id number] / / Screw 3.5mm 15mm Slf-Tap Lck Evos Strl Implanted:Qty : 1 on 10/10/2024 by Daryn North MD at [facility] Right: [employer] [id number] / / Plate 9 Hl Va Lck Fib Lt Dist 125mm Implanted:Qty : 1 on 10/10/2024 by Daryn North MD at [facility] Right: [employer] [id number] / / Screw 3.5mm 32mm Ft Slf-Tap Hex Lopro Implanted:Qty : 1 on 10/10/2024 by Daryn North MD at [facility] Right: [employer] [id number] / / Screw 3.5mm 60mm T15 Lck Slf-Tap Tip Tpr Implanted:Qty : 1 on 10/10/2024 by Daryn North MD at [facility] Right: [employer] [id number] / / Screw 3.5mm 65mm T15 Lck Slf-Tap Tip Tpr Implanted:Qty : 3 on 10/10/2024 by Daryn North MD at [facility] Right: [employer] [id number] / / Screw 3.5mm 70mm T15 Lck Slf-Tap Tip Tpr Implanted:Qty : 1 on 10/10/2024 by Daryn North MD at [facility] Right: [employer] [id number] / / Plate 9 Hl Lck Lopro Dist Blt Tip Tib Rt Implanted:Qty : 1 on 10/10/2024 by Daryn North MD at [facility] Right: [employer] [id number] / / Screw 3.5mm 75mm T15 Lck Slf-Tap Tip Tpr Implanted:Qty : 2 on 10/10/2024 by Daryn North MD at [facility] Right: [employer] [id number] / / Screw 3.5mm 40mm Ft Slf-Tap Hex Lopro Implanted:Qty : 1 on 10/10/2024 by Daryn North MD at [facility] Right: [employer] [id number] / / Screw 3.5mm 20mm T15 Slf-Tap Lck Tpr Implanted:Qty : 1 on 10/10/2024 by Daryn North MD at [facility] Right: [employer] [id number] / / Cmnt Bone Smpx Ptbr Fd Radopq Prebl Implanted:Qty : 1 on 11/17/2024 by Daryn North MD at [facility] Right: [employer]nee [employer] 01/12/2026 [id number] / / [id number] Bone Void 10cc 20cc Ca Slf Stimulan Implanted:Qty : 1 on 11/17/2024 by Daryn North MD at [facility] Right: Knee [employer] 07/14/2027 [id number] / / [id number] Explanted Type Area Basket Hand Weaver Device Identifier Shelf Expiration Date Model / Serial / Lot Wire K 2mm 150mm 1 End Troc Pnt Ss Sm Explanted:Qty: 1 on 03/15/2021 by Sukumar Magaña DO at [facility] Right: [employer] [id number] / / Screw 3.5mm 60mm 2.5mm Slf-Tap Sm Hex Explanted:Qty: 1 on 03/15/2021 by Sukumar Magaña DO at [facility] Right: [employer] [id number] / / Cplng Extfix Hfmn 3 Nikhil To Nikhil Salomón Explanted:Qty: 4 on 09/19/2024 by Marifer Saeed MD at [facility] Right: [employer] 4922-1-010 / / Screw 3.5mm 38mm Slf-Tap Cortx Evos Strl Explanted:Qty: 1 on 10/10/2024 by Daryn North MD at [facility] Right: [employer] [id number] / / Screw 3.5mm 42mm Slf-Tap Cortx Evos Strl Explanted:Qty: 1 on 10/10/2024 by Daryn North MD at [facility] Right: [employer] [id number] / / Wire K 1.6mm 150mm Troc Pnt Ss Fx Strl Explanted:Qty: 1 on 10/10/2024 by Daryn North MD at [facility] Right: [employer] [id number] / / Plate 11 Hl Va Lck Lopro Fib Lt Dist Lat Explanted:Qty: 1 on 10/10/2024 by Daryn North MD at [facility] Right: [employer] [id number] / / Wire K 1.6mm 6in Hlf Bynt Pnt Ss Fx Explanted:Qty: 3 on 10/10/2024 by Daryn North MD at [facility] Right: [employer] [id number] / / Pin Hlf 180mm 5mm Apx Hfmn2 Canc Ss Implanted:Qty: 2 on 09/19/2024 by Marifer Saeed MD at [facility] Explanted:Qty: 2 on 10/10/2024 by Daryn North MD at [facility] Right: [employer] [id number] / / Pin Hlf 200mm 5mm Apx Hfmn2 Orth Ss Thrd Implanted:Qty: 2 on 09/19/2024 by Marifer Saeed MD at [facility] Explanted:Qty: 2 on 10/10/2024 by Daryn North MD at [facility] Right: [employer]ia [employer] 5018-6-200 / / Procedures Procedure Name Priority Date/Time Associated Diagnosis Comments T4 FREE Routine 03/30/2025 9:23 AM CDT Fatty liver Autoimmune hepatitis (HCC) Cholestatic liver disease (HCC) Abnormal findings on diagnostic imaging of other specified body structures LIPID PROFILE Routine 03/30/2025 9:23 AM CDT Fatty liver Autoimmune hepatitis (HCC) Cholestatic liver disease (HCC) TSH Routine 03/30/2025 9:23 AM CDT Fatty liver Autoimmune hepatitis (HCC) Cholestatic liver disease (HCC) Abnormal results of thyroid function studies CERULOPLASMIN Routine 03/30/2025 9:23 AM CDT Fatty liver Autoimmune hepatitis (HCC) Cholestatic liver disease (HCC) PATHOLOGY TISSUE Routine 03/23/2025 9:40 AM CDT Elevated LFTs ENDOSCOPIC ULTRASONOGRAPHY, GI Routine 0 03/23/2025 9:23 AM CDT ERCP Routine 03/23/2025 9:04 AM CDT ESOPHAGOGASTRODUODENOSCOPY ( EGD) /ESOPHAGOSCOPY WITH ULTRASOUND (EUS) 03/23/2025 8:56 AM CDT Elevated LFTs MS ERCP DX W BRUSH WASH WHEN PERF 03/23/2025 8:56 AM CDT Elevated LFTs XR KNEE RIGHT 3VW Routine 03/18/2025 10:06 AM CDT Closed fracture of right tibia and fibula with routine healing, subsequent encounter PT-INR Routine 03/13/2025 10:05 AM CDT Elevated LFTs Autoimmune hepatitis (HCC) COMPREHENSIVE METABOLIC PANEL Routine 10:05 AM CDT Elevated LFTs CBC W AUTO DIFFERENTIAL Routine 03/13/20 10:05 AM CDT Elevated LFTs MS LIVER ELASTOGRAPHY Routine 03/05/2025 3:24 PM CDT Elevated LFTs MRI ABDOMEN W MRCP WWO CONT W3D Routine 03/04/2025 8:19 AM CDT Elevated LFTs HEPATIC FUNCTION PANEL Routine 8:48 AM CDT Elevated LFTs HEPATITIS B CORE ANTIBODY TOTAL Routine 01/29/2025 8:48 AM CDT Elevated LFTs Encounter for screening for other viral diseases IGG BLOOD Routine 01/29/2025 8:48 AM CDT Elevated LFTs MICROSOMAL ANTIBODY LIVER/KIDNEY Routine 01/29/2025 8:48 AM CDT Elevated LFTs UMA BLOOD SCREEN W/REFLEX TITER Routine 01/29/2025 8:48 AM CDT Elevated LFTs MITOCHONDRIAL ANTIBODY SCREEN Routine 8:48 AM CDT Elevated LFTs HEPATITIS C AB SCREEN RFLX N AAT QUANT Routine 11/20/2024 12:48 AM NUTRITION PROGRAM INSTRUCTOR ENDOSCOPY, COLON, SCREENING Routine 05/15 9:42 AM CDT from Last 3 Months or Most Recently Relevant to Health Maintenance Results * CERULOPLASMIN (03/30/2025 9:23 AM CDT) Ceruloplasmin 26.7 19.0 - 39.0 mg/dL [facility] INSURANCE BILL Blood BLOOD SPECIMEN / Unknown 03/30/2025 9:23 AM CDT 03/30/2025 Narrative [facility] INSURANCE BILL - 03/31/2025 6:09 AM CDT Performed at: [address] [place] [id number] Roadside Mechanic: Kel Quintanilla PhD, Phone: [phone] Abigail Garcia MD LAB - CHEMISTRY ORDERABLES Final Result [facility] INSURANCE BILL [address] [place] [address] * TSH (03/30/2025 9:23 AM CDT) TSH 1.650 0.450 - 4.500 uIU/mL [facility] INSURANCE BILL Blood BLOOD SPECIMEN / Unknown 03/30/2025 9:23 AM CDT 03/30/2025 Narrative [facility] INSURANCE BILL - 03/31/2025 6:09 AM CDT Performed at: [address] [id number] Roadside Mechanic: Kel Quintanilla PhD, Phone: [phone] Abigail Garcia MD LAB - CHEMISTRY ORDERABLES Final Result Performing Organization Address City/[facility]/ZIP Co de Phone Number [facility] INSURANCE BILL [address] [place] [address] * T4 FREE (03/30/2025 9:23 AM CDT) T4 Free 1.16 0.82 - 1.77 ng/dL [facility] INSURANCE BILL Blood BLOOD SPECIMEN / Unknown 03/30/2025 9:23 AM CDT 03/30/2025 Narrative [facility] INSURANCE BILL - 03/31/2025 6:09 AM CDT Performed at: [address] [id number] Roadside Mechanic: Kel Quintanilla PhD, Phone: [phone] Abigail Garcia MD LAB - CHEMISTRY ORDERABLES Final Result Performing Organization Address City/[facility]/ZIP Co de Phone Number [facility] INSURANCE BILL [address] [place] [address] * (ABNORMAL) LIPID PROFILE (03/30/2025 9:23 AM CDT) Cholesterol 239(H) 100 - 199 mg/dL [facility] INSURANCE BILL Triglycerides 74 0 - 149 mg/dL [facility] INSURANCE BILL HDL Cholesterol 66 >39 mg/dL [facility] INSURANCE BILL VLDL Calculated 13 5 - 40 mg/dL [facility] INSURANCE BILL LDL Calculated 160(H) 0 - 99 mg/dL [facility] INSURANCE BILL Blood BLOOD SPECIMEN / Unknown 03/30/2025 9:23 AM CDT 03/30/2025 Narrative [facility] INSURANCE BILL - 03/31/2025 6:09 AM CDT Performed at: [address] [id number] Roadside Mechanic: Kel Quintanilla PhD, Phone: [phone] us Abigail Garcia MD LAB - CHEMISTRY ORDERABLES Final Result [facility] INSURANCE BILL [address] [place] [address] * PATHOLOGY TISSUE (03/23/2025 9:40 AM CDT) Case Report Surgical Pathology Report Case: [id number] Authorizing Provider: Jacinto Landrum, Collected: 03/23/2025 09:40 AM [facility] Received: 03/23/2025 11:01 AM Pathologist: Reyna Hebert MD Specimen: Liver, Left lobe, EUS guided FNB 03/24/2025 12:35 PM CDT [facility] Final Diagnosis Liver, left lobe, biopsy (A): - Minimal histologic alterations - No significant fibrosis 03/24/2025 12:35 PM CDT [facility] at 1235 CDT Microscopic Description and Comment The biopsy is several thin cores of liver with overall intact lobular/acinar architecture (small interlobular portal tracts and central veins evenly distributed). Across the lobules, there is no steatosis, ballooning, or features of steatohepatitis. There is minimal to no significant lobular activity, no acidophil bodies or other necrosis, and no acute cholestasis within the portal tracts there is minimal to no inflammation, including no plasma cells or interface activity. Interlobular bile ducts are present and intact, and there is no excess ductular reaction or cholate stasis. The trichrome stain highlights normal portal stroma and central veins, without any abnormal fibrosis. The reticulin stain highlights mild zonal variation in hepatocyte cord width, but no diagnostic findings of nodular regenerative hyperplasia. The PAS-D stain is negative for alpha-1 antitrypsin globules. The iron stain is negative for iron, although the light counter stain allows visualization of lipofuscin, mostly in zone 3 hepatocytes. Despite the reported abnormal liver enzymes, there are no histologic features of significant hepatocellular or bile duct injury-specifically, there is no steatohepatitis, chronic hepatitis, acute liver injury, cholestatic hepatitis, or chronic cholestatic liver disease. The very mild lipofuscin deposition seen likely reflects normal anvc-vad-apnt; similarly, the mild hepatocyte cord variation may simply represent normal variability within the liver. 03/24/2025 12:35 PM [facility] Clinical History The patient is a 65-year-old woman with abnormal liver function tests. Operative procedure/findings: Upper EUS - normal-appearing portion of the left liver lobe, needle core biopsy obtained 03/24/2025 12:35 PM [facility] Gross Description The requisition and specimen(s) are identified with the patient's name Richard Veliz. Received in formalin, specimen A, consists of multiple flores-brown core fragments, 0.3-1.5 cm, 2.6 x 2.1 x 0.1 cm in aggregate, submitted in toto in cassette A1. LT 03/24/2025 12:35 PM [facility] Pathologist Location at [facility] 03/24/2025 12:35 PM [facility] Disclaimer The performance characteristics of all immunohistochemical and indirect immunofluorescence stains (if any) cited in this report were determined by the Histopathology Laboratory of [facility]. Some of these tests were developed by [...] and interpreted by the attending (teaching) pathologist. 03/24/2025 12:35 PM [facility] Embedded Images 03/24/2025 12:35 PM [facility] [facility] PATHOLOGY LAB Biopsy, Needle ENTIRE LIVER / Unknown 03/23/2025 9:40 AM CDT 03/23/2025 11:01 AM CDT Comment:Pre-op diagnosis: Elevated LFTs [R79.89] Jacinto Jaramillo MD LAB - PATHOLOGY/CYTO LOGY ORDERABLES Final Result [facility] PATHOLOGY LAB [address] [place], [place] [address] [phone] * Endoscopic Ultrasonography, GI (03/23/2025 9:23 AM CDT) Report Endoscopy POC Endoscopy Department Report _ Patient Name: Richard Veliz Procedure Date: 03/23/2025 9:23 AM Date of : 1960 Classification: Outpatient Gender: Female Ethnicity: Not or Race: White _ Providers: Jacinto Jaramillo MD Referring MD: Geovanni Rodriguez DO; Abigail Garcia MD Procedure: Upper EUS Indications: Abnormal liver function test Medications: Monitored Anesthesia Care. See the Anesthesia note for documentation of the administered medications. Patient Profile: 65F presents referred for ERCP +/- EUS, including possible EUS-guided liver biopsy in setting of chronically elevated LFTs. Note h/o biliary pancreatitis s/p cholecystectomy and ERCPs in past. Recent MRI/MRCP w/ mild intrahepatic biliary dilation, CBD 6 mm w/ smooth distal narrowing suggestive of a biliary stricture, and mildly prominent pancreatic duct. Description of Procedure: After obtaining informed consent, the endoscope was passed under direct vision. Throughout the procedure, the patient's blood pressure, pulse, and oxygen saturations were monitored continuously. The [id number] was introduced through the mouth, and advanced to the second part of duodenum. The upper EUS was accomplished without difficulty. The patient tolerated the procedure well. Findings: ENDOSONOGRAPHIC FINDING: : The stomach, duodenum and adjacent structures were examined endosonographical ly. The visualized portion of the liver (left lobe) was normal appearing. Fine needle biopsy was performed. Color Doppler imaging was utilized prior to needle puncture to confirm a lack of significant vascular structures within the needle path. One pass was made with a 19 gauge ContentRealtime biopsy needle using a transgastric approach. A visible core of tissue was obtained. Final pathology results are pending. There was no sign of significant endosonographic abnormality in the main extrahepatic bile duct. No main bile duct stones were present. The pancreas was carefully examined. The pancreatic parenchyma was normal appearing. No pancreatic masses were present. The pancreatic duct was normal appearing, measuring up to 3 mm in diameter at the head of pancreas and tapered smoothly towards the tail. One 4 mm unilocular anechoic cystic lesion was identified in the pancreas body, without obvious visible pancreatic ductal communication, otherwise too small to further characterize or sample. There was no sign of significant endosonographic abnormality in the filipe/ampullary region. Estimated Blood Loss: Estimated blood loss was minimal. Complications: No immediate complications. Impression: - Normal appearing visualized portion of the liver (left lobe). Needle core biopsies obtained. - Normal common bile duct. - One 4 mm cyst in the pancreas body, too small to further characterize, consider side-branch IPMN vs other. Otherwise normal pancreas. - Normal exam of the filipe/ampullary region. Moderate Sedation: . Recommendation: - Post Liver Biopsy recovery protocol. - Monitor for fevers, bleeding, pain, jaundice. - Resume previous diet as tolerated. - Hold any anticoagulant medications (blood thinners) for 3 days. Resume rest of home medications today. - Follow-up biopsy results. Further management accordingly. - Follow-up in Liver Clinic with the referring providers. Should plan for imaging surveillance via contrast-enhanced MRI/MRCP in 1 year for pancreas cyst surveillance, and continued surveillance thereafter. - The potential complications and concerning symptoms/findings, including but not limited to early or delayed fevers, infection, pain, bleeding (including liver injury), perforation, and pancreatitis were discussed with the patient/caregiver. Emergency contact information was provided. Attending Participation: I personally performed the entire procedure. Procedure Code(s): --- Professional --- 45006, Esophagogastroduod enoscopy, flexible, transoral; with transendoscopic ultrasound-guided intramural or transmural fine needle aspiration/biopsy (s), (includes endoscopic ultrasound examination limited to the esophagus, stomach or duodenum, and adjacent structures) Diagnosis Code(s): --- Professional --- R79.89, Other specified abnormal findings of blood chemistry CPT copyright 2021 [employer]. All rights reserved. The codes documented in this report are preliminary and upon baker bread review may be revised to meet current compliance requirements. Jacinto Jaramillo MD 03/23/2025 9:52:26 AM Note Initiated On: 03/23/2025 9:23 AM Number of Addenda: [id number] [place] [address] [employer]ATION 03/23/2025 9:23 AM CDT us Jacinto Jaramillo MD GI PROCEDURE ORDERAB LES Edited Result - Final [facility] * ERCP (03/23/2025 9:04 AM CDT) Report Endoscopy POC Endoscopy Department Report _ Patient Name: Richard Maganakristinaotonielpaula Procedure Date: 03/23/2025 9:04 AM Date of : 1960 Classification: Outpatient Gender: Female Ethnicity: Not or Race: White _ Providers: Jacinto Jaramillo MD Referring MD: Geovanni Rodriguez DO; Abigail Garcia MD Procedure: ERCP Indications: Abnormal MRCP, Abnormal liver function test Medications: Monitored Anesthesia Care. See the Anesthesia note for documentation of the administered medications. IVFs w/ LR, Indomethacin 100 mg MS. Patient Profile: 65F presents referred for ERCP +/- EUS, including possible EUS-guided liver biopsy in setting of chronically elevated LFTs. Note h/o biliary pancreatitis s/p cholecystectomy and ERCPs in past. Recent MRI/MRCP w/ mild intrahepatic biliary dilation, CBD 6 mm w/ smooth distal narrowing suggestive of a biliary stricture, and mildly prominent pancreatic duct. Description of Procedure: After obtaining informed consent, the scope was passed under direct vision. Throughout the procedure, the patient's blood pressure, pulse, and oxygen saturations were monitored continuously. The duodenoscope was introduced through the mouth, and advanced to the duodenum and used to inject contrast into the bile duct. The ERCP was accomplished without difficulty. The patient tolerated the procedure well. Findings: A precinct i police sergeant film of the abdomen was obtained. Surgical clips, consistent with a previous cholecystectomy, were seen in the area of the right upper quadrant of the abdomen. The esophagus was successfully intubated under direct vision without detailed examination of the upper GI tract given the use of a sideviewing duodenoscope. A biliary sphincterotomy had been performed. The sphincterotomy appeared open. A short 0.025 inch Visiglide guidewire was easily passed into the biliary tree on first attempt. An adjustable biliary extraction balloon cannula was passed over the guidewire and the bile duct was then deeply cannulated. Contrast was injected. I personally interpreted the bile duct images. Ductal flow of contrast was adequate. Image quality was adequate. Contrast extended to the hepatic ducts. The biliary system was normal appearing. Preparations were made for cholangiography using the balloon occlusion technique. The balloon-tipped catheter was advanced to the hepatic duct bifurcation. The balloon was inflated to 12 mm in size. Contrast was then injected into the biliary tree and opacified the left and right hepatic ducts and main intrahepatic branches. The biliary system was normal appearing. The biliary tree was swept with the 9-12 mm adjustable extraction balloon starting at the bifurcation. Nothing was found. Spontaneous outflow of bile and contrast were adequate. There was no indication for stent placement at this time. Estimated Blood Loss: Estimated blood loss was minimal. Complications: No immediate complications. Impression: - Pre-existent patent biliary sphincterotomy. - Normal cholangiogram. - Balloon sweeps with nothing found. - Adequate spontaneous biliary drainage with no indication for stent placement at this time. Moderate Sedation: . Recommendation: - Proceed with tandem EUS for liver biopsy per Hepatology request. - See EUS report for overall recommendations. Attending Participation: I personally performed the entire procedure. Procedure Code(s): --- Professional --- 43854, Endoscopic retrograde cholangiopancreatography (ERCP); diagnostic, including collection of specimen(s) by brushing or washing, when performed (separate procedure) 59209, Endoscopic catheterization of the biliary ductal system, radiological supervision and interpretation Diagnosis Code(s): --- Professional --- R79.89, Other specified abnormal findings of blood chemistry R93.2, Abnormal findings on diagnostic imaging of liver and biliary tract CPT copyright 2021 [employer]. All rights reserved. The codes documented in this report are preliminary and upon baker bread review may be revised to meet current compliance requirements. Jacinto Jaramillo MD 03/23/2025 9:25:20 AM Note Initiated On: 03/23/2025 9:04 AM Number of Addenda: [address] [employer]ATION 03/23/2025 9:04 AM CDT us Jacinto Jaramillo MD GI PROCEDURE ORDERAB LES Edited Result - Final [facility] * XR Knee Right 3Vw (03/18/2025 10:06 AM CDT) Anatomical Region Laterality Modality Lower Extremity Radiographic Christa ging 03/21/2025 10:1 8 PM CDT Impressions 03/21/2025 10:19 PM CDT IMPRESSION: Unchanged osseous alignment. > Interpreting Provider: Yefri Groves MD on 03/21/2025 10:19 PM Narrative 03/21/2025 10:19 PM CDT PROCEDURE: XR KNEE RIGHT 3VW DATE/TIME OF EXAM: 03/18/2025 10:06 AM CLINICAL INFORMATION: None relevant/not provided if blank. Indication: S82.201D: Closed fracture of right tibia and fibula with routine healing, subsequent encounter S82.401D: Closed fracture of right tibia and fibula with routine healing, subsequent encounter Additional History: COMPARISON: 01/14/2025. FINDINGS: Redemonstration of proximal tibial fracture fixation with plates and screws. The hardware is intact and the alignment is unchanged. There are antibiotic beads in the soft tissues adjacent to the lateral aspect of the distal femur, unchanged. There is a small knee effusion. The joint space is maintained. Procedure Note Yefri Groves MD - 03/21/2025 PROCEDURE: XR KNEE RIGHT 3VW DATE/TIME OF EXAM: 03/18/2025 10:06 AM CLINICAL INFORMATION: None relevant/not provided if blank. Indication: S82.201D: Closed fracture of right tibia and fibula with routine healing, subsequent encounter S82.401D: Closed fracture of right tibia and fibula with routinehealing, subsequent encounter Additional History: COMPARISON: 01/14/2025. FINDINGS: Redemonstration of proximal tibial fracture fixation with plates and screws. The hardware is intact and the alignment is unchanged. There are antibiotic beads in the soft tissues adjacent to the lateral aspect ofthe distal femur, unchanged. There is a small knee effusion. The joint spaceis maintained. IMPRESSION: Unchanged osseous alignment. > Interpreting Provider: Yefri Groves MD on 03/21/2025 10:19 PM Daryn North MD DIAGNOSTIC IMAGING ORDERABLES F inal Result * PT-INR (03/13/2025 10:05 AM CDT) INR 1.0 0.9 - 1.2 [facility] INSURANCE BILL Comment: Reference interval is for non-anticoagulated patients. Suggested INR therapeutic range for Vitamin K antagonist therapy: Standard Dose (moderate intensity therapeutic range): 2.0 - 3.0 Higher intensity therapeutic range 2.5 - 3.5 PT 11.2 9.1 - 12.0 sec [facility] INSURANCE BILL Blood BLOOD SPECIMEN / Unknown 03/13/2025 10:05 AM CDT 03/13/2025 Narrative [facility] INSURANCE BILL - 03/14/2025 7:09 AM CDT Performed at: 01 - [facility] [address] [place], [place] [id number] Roadside Mechanic: Kel Quintanilla PhD, Phone: [phone] Abigail Garcia MD LAB - COAGULATION ORDERABLES Fin al Result [facility] INSURANCE BILL [address] [place] [address] * (ABNORMAL) CBC W/ DIFFERENTIAL (03/13/2025 10:05 AM CDT) WBC 4.1 3.4 - 10.8 x10E3/uL [facility] INSURANCE BILL RBC 4.57 3.77 - 5.28 x10E6/uL [facility] INSURANCE BILL Hemoglobin 12.3 11.1 - 15.9 g/dL [facility] INSURANCE BILL Hematocrit 39.6 34.0 - 46.6 % [facility] INSURANCE BILL MCV 87 79 - 97 fL [facility] INSURANCE BILL MCH 26.9 26.6 - 33.0 pg [facility] INSURANCE BILL MCHC 31.1(L) 31.5 - 35.7 g/dL [facility] INSURANCE BILL RDW 15.3 11.7 - 15.4 % [facility] INSURANCE BILL Platelet Count 189 150 - 450 x10E3/uL [facility] INSURANCE BILL Granulocytes % 46 Not Estab. % [facility] INSURANCE BILL Lymphocytes % 42 Not Estab. % [facility] INSURANCE BILL Monocytes % 9 Not Estab. % [facility] INSURANCE BILL Eosinophils % 2 Not Estab. % [facility] INSURANCE BILL Basophils % 1 Not Estab. % [facility] INSURANCE BILL Granulocytes Absolute 1.9 1.4 - 7.0 x10E3/uL [facility] INSURANCE BILL Lymphocytes Absolute 1.8 0.7 - 3.1 x10E3/uL [facility] INSURANCE BILL Monocytes Absolute 0.4 0.1 - 0.9 x10E3/uL [facility] INSURANCE BILL Eosinophils Absolute 0.1 0.0 - 0.4 x10E3/uL [facility] INSURANCE BILL Basophils Absolute 0.1 0.0 - 0.2 x10E3/uL [facility] INSURANCE BILL Immature Granulocytes 0 Not Estab. % [facility] INSURANCE BILL Immature Granulocytes Absolute 0.0 0.0 - 0.1 x10E3/uL [facility] INSURANCE BILL Blood BLOOD SPECIMEN / Unknown 03/13/2025 10:05 AM CDT 03/13/2025 Narrative [facility] INSURANCE BILL - 03/14/2025 7:09 AM CDT Performed at: 01 - [facility] [address] [place], [place] [id number] Roadside Mechanic: Kel Quintanilla PhD, Phone: [phone] Abigail Garcia MD LAB - HEMATOLOGY ORDERABLES Lorenza l Result [facility] INSURANCE BILL [address] [place] [address] * (ABNORMAL) COMPREHENSIVE METABOLIC PANEL (03/13/2025 10:05 AM CDT) Glucose 89 70 - 99 mg/dL [facility] INSURANCE BILL BUN 23 8 - 27 mg/dL [facility] INSURANCE BILL Creatinine 1.05(H) 0.57 - 1.00 mg/dL [facility] INSURANCE BILL eGFR by CKD-EPI 58(L) >59 mL/min/1.7 3 [facility] INSURANCE BILL BUN/Creatinine Ratio 22 12 - 28 [facility] INSURANCE BILL Sodium 143 134 - 144 mmol/L [facility] INSURANCE BILL Potassium 4.3 3.5 - 5.2 mmol/L [facility] INSURANCE BILL Chloride 110(H) 96 - 106 mmol/L [facility] INSURANCE BILL CO2 20 20 - 29 mmol/L [facility] INSURANCE BILL Calcium 9.6 8.7 - 10.3 mg/dL [facility] INSURANCE BILL Protein Total 6.6 6.0 - 8.5 g/dL [facility] INSURANCE BILL Albumin 4.0 3.9 - 4.9 g/dL [facility] INSURANCE BILL Globulin Total 2.6 1.5 - 4.5 g/dL [facility] INSURANCE BILL Bilirubin Total 0.4 0.0 - 1.2 mg/dL [facility] INSURANCE BILL Alkaline Phosphatase 198(H) 44 - 121 IU/L [facility] INSURANCE BILL AST 22 0 - 40 IU/L [facility] INSURANCE BILL ALT 20 0 - 32 IU/L [facility] INSURANCE BILL Blood BLOOD SPECIMEN / Unknown 03/13/2025 10:05 AM CDT 03/13/2025 Narrative [facility] INSURANCE BILL - 03/14/2025 7:09 AM CDT Performed at: 01 - [facility] [address] [place], [place] [id number] Roadside Mechanic: Kel Quintanilla PhD, Phone: [phone] Abigail Garcia MD LAB - CHEMISTRY ORDERABLES Final Result [facility] INSURANCE BILL [address] [place] [address] * MS LIVER ELASTOGRAPHY (03/05/2025 3:24 PM CDT) Narrative Rose Mcghee RN - 03/05/2025 3:24 PM CDT Rose Mcghee RN 03/05/2025 3:43 PM Diagnosis: Elevated liver enzymes RN verified patient NPO for prior 3 hours. Procedure explained. Date of Exam: 03/05/2025 Liver Stiffness: (LSM, kPa) median: 3.3 IQR/Median% (ideally < 30%): 18% CAP (controlled attenuation parameter): 224 Technical Difficulty: None Ordering Provider: Dr. Garcia Phone Fax Davida Tello PA-C PROCEDURE/MINOR SURGICAL ORDER HAIR Final Result * MRI Abdomen W Mrcp Wwo Cont W3D (03/04/2025 8:19 AM CDT) Anatomical Region Laterality Modality Abdomen Magnetic Resonan ce 03/04/2025 8:29 AM CDT Impressions 03/04/2025 10:25 AM CDT Impression: 1.The gallbladder is surgically absent. Mild dilation of the intrahepatic bile ducts without definite transition zone, mural thickening or enhancement. The common bile duct measures 6 mm, there is smooth narrowing noted at the terminal end, likely biliary stricture. No mass lesions or filling defects are seen. 2.There is a mildly prominent pancreatic duct without evidence of obstruction. 3.Small hiatal hernia. 4.Otherwise unremarkable MRI examination of the abdomen. > Dictated by Flaco Lang D.O. - Diagnostic Hay Stacker. I, Ash Roberts MD have personally reviewed and interpreted this examination/study. > Interpreting Provider: Ash Roberts MD on 03/04/2025 10:25 AM Narrative 03/04/2025 10:25 AM CDT PROCEDURE: MRI ABDOMEN W MRCP WWO CONT W3D, DATE/TIME OF EXAM: 03/04/2025 8:19 AM, LOCATION [facility] INDICATION: R79.89: Elevated LFTs ADDITIONAL CLINICAL INFORMATION: Ordering Provider Reason For Exam: Technologist Note: Additional: COMPARISON: None. TECHNIQUE: Noncontrast followed by multiphasic contrast-enhanced MRI examination of was performed using routine multiplanar sequences. MRCP: 3-D MRCP images were obtained and MIP reconstruction were also performed from the source images. CONTRAST: 19 mL of MultiHance was used as intravenous contrast. No procedure related complications seen. IMAGE QUALITY: Average diagnostic quality. Findings: Lower Chest: Lung bases are clear. No pleural effusion seen. Hepatobiliary system LIver: Normal morphology and smooth outline. The liver shows normal enhancement in the postcontrast images. The portal vein and hepatic veins are patent. Normal arterial anatomy. No significant fatty infiltration or iron overload seen. No focal lesions seen in the liver parenchyma. Spleen: Normal. Normal splenic signal intensity. Ascites: None. Biliary system: Gallbladder: Gallbladder is not visualized, likely post cholecystectomy status. Bile ducts: Mild central biliary dilation is noted (distended bile ducts are seen more than 2 divisions). The CBD measures up to 6 mm in diameter. Smooth narrowing noted in the distal common bile duct with the minimal mural thickening, likely biliary stricture (image 10 series 7) Pancreas: Pancreas is atrophic. No focal lesions is seen. No focal lesions identified in the pancreas. Pancreatic duct: Pancreatic duct is mildly prominent without evidence of obstruction. Retroperitoneum Kidneys: Normal morphology of the kidneys. A few subcentimeter simple cysts are present bilaterally. Adrenals: Unremarkable. Lymph nodes: No significantly enlarged retroperitoneal or mesenteric lymph node enlargement. Blood vessels: Aorta and inferior vena cava are unremarkable. Gastrointestinal: Other than a small hiatal hernia, the stomach and visualized small bowel loops and colon are unremarkable. Other findings: None. Procedure Note Ash Roberts MD - 03/04/2025 PROCEDURE: MRI ABDOMEN W MRCP WWO CONT W3D, DATE/TIME OF EXAM:03/04/2025 8:19 AM, LOCATION [facility] INDICATION: R79.89: Elevated LFTs ADDITIONAL CLINICAL INFORMATION: Ordering Provider Reason For Exam: Technologist Note: Additional: COMPARISON: None. TECHNIQUE: Noncontrast followed by multiphasic contrast-enhanced MRI examination of was performed using routine multiplanar sequences. MRCP: 3-D MRCP images were obtained and MIP reconstruction were also performed from the source images. CONTRAST: 19 mL of MultiHance was used as intravenous contrast. No procedurerelated complications seen. IMAGE QUALITY: Average diagnostic quality. Findings: Lower Chest: Lung bases are clear. No pleural effusion seen. Hepatobiliary system LIver: Normal morphology and smooth outline. The liver shows normal enhancement in the postcontrast images. The portal vein and hepaticveins are patent. Normal arterial anatomy. No significant fatty infiltrationor iron overload seen. No focal lesions seen in the liver parenchyma. Spleen: Normal. Normal splenic signal intensity. Ascites: None. Biliary system: Gallbladder: Gallbladder is not visualized, likely post cholecystectomy status. Bile ducts: Mild central biliary dilation is noted (distended bile ducts are seen more than 2 divisions). The CBD measures up to 6 mm indiameter. Smooth narrowing noted in the distal common bile duct with the minimal mural thickening, likely biliary stricture (image 10 series 7) Pancreas: Pancreas is atrophic. No focal lesions is seen. No focallesions identified in the pancreas. Pancreatic duct: Pancreatic duct is mildly prominent without evidence of obstruction. Retroperitoneum Kidneys: Normal morphology of the kidneys. A few subcentimeter simplecysts are present bilaterally. Adrenals: Unremarkable. Lymph nodes: No significantly enlarged retroperitoneal or mesentericlymph node enlargement. Blood vessels: Aorta and inferior vena cava are unremarkable. Gastrointestinal: Other than a small hiatal hernia, the stomach and visualized small bowel loops and colon are unremarkable. Other findings: None. Impression: 1.The gallbladder is surgically absent. Mild dilation of theintrahepatic bile ducts without definite transition zone, mural thickening or enhancement. The common bile duct measures 6 mm, there is smoothnarrowing noted at the terminal end, likely biliary stricture. No mass lesions or filling defects are seen. 2.There is a mildly prominent pancreatic duct without evidence of obstruction. 3.Small hiatal hernia. 4.Otherwise unremarkable MRI examination of the abdomen. > Dictated by Flaco Lang D.O. - Diagnostic Hay Stacker. I, Ash Roberts MD have personally reviewed and interpreted this examination/study. > Interpreting Provider: Ash Roberts MD on 0:25 AM Davida Tello PA-C MR ORDERABLES Final Result * MITOCHONDRIAL ANTIBODY SCREEN (01/29/2025 8:48 AM CDT) Mitochondrial M2 Antibody <20.0 0.0 - 20.0 Units [facility] INSURANCE BILL Comment: Negative 0.0 - 20.0 Equivocal 20.1 - 24.9 Positive >24.9 Mitochondrial (M2) Antibodies are found in 90-96% of patients with primary biliary cirrhosis. Blood BLOOD SPECIMEN / Unknown 01/29/2025 8:48 AM CDT 01/29/2025 Narrative [facility] INSURANCE BILL - 01/30/2025 1:09 PM CDT Performed at: [address] [place] [id number] Roadside Mechanic: Kel Quintanilla PhD, Phone: [phone] Davida Tello PA-C LAB - CHEMISTRY ORDERABLES Fin al Result [facility] INSURANCE BILL [address] [place] [address] * UMA BLOOD SCREEN W/REFLEX TITER (01/29/2025 8:48 AM CDT) UMA Negative [facility] INSURANCE BILL Comment: Negative <1:80 Borderline 1:80 Positive >1:80 ICAP nomenclature: AC-0 For more information about Hep-2 cell patterns use ANApatterns.org, the official website for the International Consensus on Antinuclear Antibody (UMA) Patterns (ICAP). Blood BLOOD SPECIMEN / Unknown 01/29/2025 8:48 AM CDT 01/29/2025 Narrative [facility] INSURANCE BILL - 02/03/2025 5:09 PM CDT Performed at: [address] [place] [id number] Roadside Mechanic: Kel Quintanilla PhD, Phone: [phone] Davida Tello PA-C LAB - CHEMISTRY ORDERABLES Fin al Result Performing Organization Address [facility] de Phone Number [facility] INSURANCE BILL [address] [place] [address] * MICROSOMAL ANTIBODY LIVER/KIDNEY (01/29/2025 8:48 AM CDT) Pathologist [facility] Liver-Kidney Microsomal Antibody <1.0 0.0 - 20.0 Units [facility] INSURANCE BILL Comment: Negative 0.0 - 20.0 Equivocal 20.1 - 24.9 Positive >24.9 LKM type 1 antibodies are detected in patients with autoimmune hepatitis type 2 and in up to 8% of patients with chronic HCV infection. Blood BLOOD SPECIMEN / Unknown 01/29/2025 8:48 AM CDT 01/29/2025 Narrative [facility] INSURANCE BILL - 01/30/2025 3:09 PM CDT Performed at: [address] [place] [id number] Roadside Mechanic: Kel Quintanilla PhD, Phone: [phone] Davida Tello PA-C LAB - CHEMISTRY ORDERABLES Fin al Result Performing Organization Address [facility] Phone Number [facility] INSURANCE BILL [address] [place] [address] * (ABNORMAL) HEPATIC FUNCTION PANEL (01/29/2025 8:48 AM CDT) Pathologist [facility] Protein Total 6.8 6.0 - 8.5 g/dL [facility] INSURANCE BILL Albumin 4.1 3.9 - 4.9 g/dL [facility] INSURANCE BILL Bilirubin Total 0.5 0.0 - 1.2 mg/dL [facility] INSURANCE BILL Bilirubin Direct 0.19 0.00 - 0.40 mg/dL [facility] INSURANCE BILL Alkaline Phosphatase 266(H) 44 - 121 IU/L [facility] INSURANCE BILL AST 70(H) 0 - 40 IU/L [facility] INSURANCE BILL ALT 68(H) 0 - 32 IU/L [facility] INSURANCE BILL Blood BLOOD SPECIMEN / Unknown 01/29/2025 8:48 AM CDT 01/29/2025 Narrative [facility] INSURANCE BILL - 01/30/2025 8:11 AM CDT Performed at: [address] [place] [address] [id number] Roadside Mechanic: Kel Quintanilla PhD, Phone: [phone] Davida Tello PA-C LAB - CHEMISTRY ORDERABLES Fin al Result Performing Organization Address [facility] Co de Phone Number [facility] INSURANCE BILL [address] [place] [address] * HEPATITIS B CORE ANTIBODY TOTAL (01/29/2025 8:48 AM CDT) [facility] Hepatitis B Core Virus Antibody Total Negative Negative [facility] INSURANCE BILL Blood BLOOD SPECIMEN / Unknown 01/29/2025 8:48 AM CDT 01/29/2025 Narrative [facility] INSURANCE BILL - 01/30/2025 8:11 AM CDT Performed at: [address] [place] [address] [id number] Roadside Mechanic: Kel Quintanilla PhD, Phone: [phone] Davida Tello PA-C LAB - CHEMISTRY ORDERABLES Fin al Result [facility] INSURANCE BILL [address] [place] [address] * IGG BLOOD (01/29/2025 8:48 AM CDT) [facility] IgG Quantitative 1,207 586 - 1,602 mg/dL [facility] INSURANCE BILL Blood BLOOD SPECIMEN / Unknown 01/29/2025 8:48 AM CDT 01/29/2025 Narrative [facility] INSURANCE BILL - 01/30/2025 3:09 PM CDT Performed at: [facility] [address] [place], [place] [id number] Roadside Mechanic: Kel Quintanilla PhD, Phone: [phone] us Davida Tello PA-C LAB - CHEMISTRY ORDERABLES Fin al Result Performing Organization Address City/[facility]/ZIP Co de Phone Number [facility] INSURANCE BILL [address] [place] [address] * HEPATITIS C AB SCREEN RFLX NAAT QUANT (11/20/2024 12:48 AM NUTRITION PROGRAM INSTRUCTOR) Pathologist [facility] Hepatitis C Antibody Non-react juju Non-reac tive 11/20/2024 2:21 AM NUTRITION PROGRAM INSTRUCTOR [facility] Comment: Hepatitis C Antibody [...] Lab Venipuncture / Unknown 11/20/2024 12:48 AM NUTRITION PROGRAM INSTRUCTOR 11/20/2024 1:18 AM NUTRITION PROGRAM INSTRUCTOR us Cathie Reyes MD LAB - CHEMISTRY ORDERABLES Final Result Performing Organization Address City/[facility]/ZIP Co de Phone Number [address] [address] [phone] * ENDOSCOPY, COLON, SCREENING (05/30/2024 9:42 AM CDT) Report Endoscopy POC Endoscopy Department Report _ Patient Name: Richard Veliz Procedure Date: 05/30/2024 9:42 AM Date [...] the patient. Procedure Code(s): --- Professional --- 58386, Colonoscopy, flexible; with removal of tumor(s), polyp(s), or other lesion(s) by snare technique 52530, 59, Colonoscopy, flexible; with biopsy, single or multiple Diagnosis Code(s): --- Professional --- Z12.11, Encounter for screening for malignant neoplasm of colon D12.0, Benign neoplasm of cecum CPT copyright 2021 [employer]. All rights reserved. The codes documented in this report are preliminary and upon baker bread review may be revised to meet current compliance requirements. Balwinder Goncalves MD 05/30/2024 10:32:28 AM This report has been signed electronically. Note Initiated On: 05/30/2024 9:42 AM Number of Addenda: 0 [facility] [address] [place] [id number] [facility] 05/30/2024 9:42 AM CDT us Balwinder Goncalves MD GI PROCEDURE ORDERABLES Edited Result - Final [facility] from Last 3 Months or Most Recently Relevant to Health Maintenance Insurance [facility] [place] [address] MEDICARE [facility] [place] [address] Advance Directives * Full Code (Latest Code [...] 12:27 PM 03/16/2021 2:18 PM Care Teams Roll On Worker Relationship Specialty Start Date End Date Geovanni Rodriguez DO [address] [place] [address] PCP - General Internal Medicine 09/19/24
== END 2025-04-20 14:37 | disposition home or self-care (01) ==
LOC: CHSIMG 14:38
PROVIDERS: PCP Internal Medicine; Visit Provider Obstetrics & Gynecology
DX: Z12.31 Encounter for screening mammogram for malignant neoplasm of breast (principal)
CPT/HCPCS: 77063; 77067

== ENCOUNTER 2025-09-17 07:50 | Outpatient (CLI) | payer MEDICARE, OTHER, SELFPAY ==
--- NOTE | ~2025-09-17 | DEXA_ITS ---
Bone Density Report Name: RICHARD AG Age: 65 Sex: Female Ethnicity: White Date of : 1960 Indication: hyperparathyroidism; height loss; prior fracture; Referring Provider: Geovanni Rodriguez Study: Bone densitometry was performed. Exam Date: September 17, 2025 Accession number: [id number] Bone Density: Region BMD T-score Z-score Classification AP Spine(L1-L4) 0.972 -0.7 1.3 Normal Femoral Neck (Left) 0.724 -1.1 0.5 Osteopenia Total Hip (Left) 0.837 -0.9 0.5 Normal Femoral Neck (Right) 0.667 -1.6 0.0 Osteopenia Total Hip (Right) 0.747 -1.6 -0.2 Osteopenia Total Hip Mean 0.792 -1.3 0.2 Osteopenia World Health Organization criteria for BMD impression classify patients as: Normal (T-score at or above -1.0), Osteopenia (T-score between -1.0 and -2.5), or Osteoporosis (T-score at or below -2.5). 10-year Fracture Risk(1): Major Osteoporotic Fracture 15% Hip Fracture 1.8% Reported Risk Factors: [place] (), Neck BMD=0.667, BMI=35.8, previous fracture (1) FRAX(R) Version 3.08. Fracture probability calculated for an untreated patient. Fracture probability may be lower if the patient has received treatment. Previous Exams: -- Region Exam Age BMD T-score BMD Change BMD Change Date g/cm2 vs Baseline vs Previous -- AP Spine (L1-L4) 09/17/2025 65 0.972 -0.7 -6.8%# -2.6%* 01/26/2012 52 0.998 -0.4 -4.4%# -4.4%# 01/29/2008 48 1.044 0.0 Total Hip(Left) 09/17/2025 65 0.837 -0.9 -13.2%* -10.0%# 08/15/2023 63 0.930 -0.1 -3.5%# 0.9% 01/26/2012 52 0.922 -0.2 -4.4%# -4.4%# 01/29/2008 48 0.964 0.2 Total Hip(Right) 09/17/2025 65 0.747 -1.6 -18.4%* -13.9%# 08/15/2023 63 0.867 -0.6 -5.3%# 0.6% 01/26/2012 52 0.862 -0.7 -5.8%# -5.8%# 01/29/2008 48 0.916 -0.2 -- *Denotes significance at 95% confidence level, LSC for AP Spine = 0.022 g/cm2, LSC for Total Hip = 0.027 g/cm2 # Denotes dissimilar scan types or analysis methods Clinical Information Provided by Patient: Has had a low trauma fracture Has used the following medications: Vitamin D Has the following medical conditions: Hyperparathyroidism Patient maximum height was 67 Menopause Age: 47 Drinks caffeinated beverages Onset of menses at age 14 Number of children 2 Impression: The patient has low bone mass, based on the Right Total Hip T-score. The patient has an estimated ten-year risk of hip fracture of 1.8% and an estimated ten-year risk of major fracture of 15%, based on the WHO FRAX algorithm. The patient has risk factors, including: previous fracture. The BMD for the AP Spine (L1-L4) decreased, changing by -2.6% since the last DXA exam. Discussion: BONE DENSITY IS LOW AT ONE OR MORE SKELETAL SITES. This patient's lowest T-score is low at one or more skeletal sites. It meets the World Health Organization's (WHO) criteria for ?low bone mass? (T-score between -1.0 and -2.5). The patient's 10-year risk of fracture as calculated by FRAX is less than the threshold where pharmacological therapy is recommended by the National Osteoporosis Foundation (NOF). However, all treatment decisions require clinical judgment and consideration of individual patient factors, including patient preferences, comorbidities, previous drug use, risk factors not captured in the FRAX model (e.g., frailty, falls, vitamin D deficiency, increased bone turnover, interval significant decline in bone density) and possible under or overestimation of fracture risk by FRAX. The patient should follow a healthful lifestyle (good nutrition with adequate calcium and vitamin D, and appropriate weight-bearing exercise). Follow-Up: Consider repeating this study in 2 years to reassess this patient's status, or sooner if there is some new clinical indication. Reported by: DOTTIE on 09/17/2025 8:13:00 AM. Reviewed, dictated and finalized at location A.
== END 2025-09-17 07:51 | disposition home or self-care (01) ==
PROVIDERS: PCP Orthopaedic Surgery; Visit Provider Internal Medicine
DX: Z78.0 Asymptomatic menopausal state (principal); M85.852 Other specified disorders of bone density and structure, left thigh; M85.851 Other specified disorders of bone density and structure, right thigh
CPT/HCPCS: 77080